=== PATIENT | female | born 1950 | race Caucasian/White ===

== ENCOUNTER 2023-06-18 09:32 | Outpatient (REF) | payer MEDICARE, OTHER, SELFPAY ==
[2023-06-18 14:49] LABS: MANUAL DIFF FLAG NO
[2023-06-18 14:54] LABS: Basophils Absolute Auto 0.1 X10*3/uL (0.0-0.2); Basophils Percent Auto 0.6 % (0-2); Eosinophils Absolute Auto 0.2 X10*3/uL (0.0-0.4); Eosinophils Percent Auto 1.8 % (0-4); Hematocrit 45.4 % (37.0-47.0); Hemoglobin 14.4 g/dl (12.0-16.0); Imm Gran Abs Auto 0.03 X10*3/uL (0.00-0.03); Imm Gran Pct Auto 0.4 % (0.0-0.4); Lymphocytes Absolute Auto 1.1 X10*3/uL (1.2-4.9); Lymphocytes Percent Auto 13.2 % (20-40); Mean Corpuscular HGB Conc 31.7 g/dl (31.0-35.0); Mean Corpuscular Hemoglobin 29.6 pg (27.0-33.0); Mean Corpuscular Volume 93.2 fL (80.0-98.0); Mean Platelet Volume 9.9 fL (9.4-12.3); Monocytes Absolute Auto 1.1 X10*3/uL (0.1-1.2); Monocytes Percent Auto 12.5 % (2-11); Neutrophils Percent Auto 71.5 % (45-73); Platelet Count 321 X10*3/uL (160-400); Red Blood Count 4.87 X10*6/uL (4.20-5.50); Red Cell Distribution Width 13.7 % (11.0-16.0); White Blood Count 8.4 X10*3/uL (4.8-10.8)
[2023-06-18 15:27] LABS: Alanine Aminotransferase 13 U/L (0-31); Alkaline Phosphatase 81 U/L (39-117); Anion Gap 12 (12-20); Aspartate Amino Transferase 23 U/L (5-31); Bilirubin Total 0.7 mg/dL (0.0-1.0); Blood Urea Nitrogen 16 mg/dL (9-16); Calcium 9.3 mg/dL (8.4-10.2); Carbon Dioxide 27 mmol/L (22-29); Chloride 105 mmol/L (96-108); Cholesterol 143 mg/dL (<200); Estimated Glomerular Filt Rate > 60; Glucose Random 73 mg/dL (60-115); HDL Cholesterol 41 mg/dL (>40); LDL Cholesterol Calculated 82 mg/dL (<100); Potassium 4.3 mmol/L (3.3-5.1); Sodium 140 mmol/L (135-145); Total Protein 6.7 g/dL (6.5-8.0); Triglycerides 103 mg/dL (<150)
[2023-06-18 15:43] LABS: TSH reflex Free T4 1.88 uIU/mL (0.32-4.0)
[2023-06-19 02:32] LABS: ~HepC Num1 0.09 S/CO (0.00-0.79); ~Hepatitis C Antibody Nonreactive (Nonreactive)
== END 2023-06-18 09:33 | disposition home or self-care (01) ==
LOC: HO.CHCLDS 09:32
PROVIDERS: Visit Provider Family Medicine
DX: R20.0 Anesthesia of skin (principal); R20.2 Paresthesia of skin; E55.9 Vitamin D deficiency, unspecified; E66.9 Obesity, unspecified
CPT/HCPCS: 36415; 80053; 80061; 82306; 84443; 85025; 86803

== ENCOUNTER 2023-06-21 09:11 | Outpatient (REF) | payer MEDICARE, OTHER, SELFPAY ==
--- NOTE | ~2023-06-21 | MM_ITS ---
EXAMINATION: MM SCREENING DIGITAL BREAST TOMOSYNTHESIS, BILATERAL CLINICAL INFORMATION: Screening. Asymptomatic. The patient is status post bilateral breast reduction. COMPARISON: Mammography: This study is compared with prior exams dating back to TECHNIQUE: Digital breast tomosynthesis is performed in both the craniocaudal and mediolateral oblique views along with computer-aided detection (CAD). Synthesized 2D images are generated from the tomosynthesis. FINDINGS: There are scattered areas of fibroglandular density (ACR BI-RADS breast composition Category b). There are no significant masses, abnormal calcifications, or other abnormalities. Post reduction changes are present in each breast. MM/MM tomosynthesis screening BI IMPRESSION: No mammographic evidence of malignancy. ASSESSMENT: BI-RADS BI-RADS 2 - Benign Findings RECOMMENDATION: Routine annual mammography screening. 1 year F/U This examination should not preclude the clinical evaluation of a suspicious palpable abnormality. This patient's information was entered into a reminder system with a target due date for their next mammogram.
== END 2023-06-21 09:12 | disposition home or self-care (01) ==
LOC: HO.MAMMO 09:11
PROVIDERS: PCP Family Medicine; Visit Provider Family Medicine
DX: Z12.31 Encounter for screening mammogram for malignant neoplasm of breast (principal)
CPT/HCPCS: 77063; 77067

== ENCOUNTER → 2023-06-21 09:15 | Outpatient (BNV) | payer MEDICARE, SELFPAY | PROVIDERS: PCP Family Medicine; Visit Provider Radiology Diagnostic Radiology | DX: Z12.31 Encounter for screening mammogram for malignant neoplasm of breast (principal) | CPT/HCPCS: 77063; 77067 ==

== ENCOUNTER 2023-07-04 10:04 | Outpatient (REF) | payer MEDICARE, OTHER, SELFPAY ==
--- NOTE | ~2023-07-04 | US_ITS ---
EXAMINATION: NONINVASIVE ASSESSMENT OF THE ARTERIES OF BOTH LOWER EXTREMITIES INCLUDING BILATERAL LOWER EXTREMITY DUPLEX. CLINICAL INFORMATION: Peripheral vascular disease COMPARISON: None TECHNIQUE: duplex Doppler techniques with wave form analysis and measurement of velocities in the common femoral, profunda femoral, superficial femoral, popliteal, tibial and peroneal arteries. The study was performed only at rest. FINDINGS: RIGHT LEG Common femoral artery: 126 cm/s, Multiphasic Profunda femoris artery: 71 cm/s, Multiphasic Superficial femoral artery (proximal): 103 cm/s, Multiphasic Superficial femoral artery (mid): 96 cm/s, Multiphasic Superficial femoral artery (distal): 105 cm/s, Multiphasic Proximal Popliteal artery: 79 cm/s, Multiphasic Mid posterior tibial artery: 111 cm/s, Multiphasic LEFT LEG: Common femoral artery: 88 cm/s, Multiphasic Profunda femoris artery: 60 cm/s, Multiphasic Superficial femoral artery (proximal): 78 cm/s, Multiphasic Superficial femoral artery (mid): 90 cm/s, Multiphasic Superficial femoral artery (distal): 67 cm/s, Multiphasic Proximal Popliteal artery: 74 cm/s, Multiphasic Mid posterior tibial artery: 101 cm/s, Multiphasic There is atherosclerotic disease. US/US arterial duplex LE BI IMPRESSION: No hemodynamically significant stenosis in the bilateral lower extremities.
== END 2023-07-04 10:05 | disposition home or self-care (01) ==
LOC: HO.US 10:04
PROVIDERS: PCP Family Medicine; Visit Provider Family Medicine
DX: I73.9 Peripheral vascular disease, unspecified (principal)
CPT/HCPCS: 93925

== ENCOUNTER 2023-07-22 08:00 | Outpatient (REF) | payer MEDICARE, OTHER, SELFPAY ==
--- NOTE | ~2023-07-22 | XR_ITS ---
EXAMINATION: XR KNEE, RIGHT CLINICAL INFORMATION: Chronic pain right knee. COMPARISON: 04/04/2015 radiographs. TECHNIQUE: 3 views of the right knee. FINDINGS: Bones are diffusely demineralized. Moderate joint effusion. Advanced tricompartmental degenerative changes with abundant chondrocalcinosis. [id number] narrowing of the medial compartment. XR/XR knee RT 3V IMPRESSION: Advanced tricompartmental degenerative changes with abundant chondrocalcinosis has progressed since 04/04/2015.
== END 2023-07-22 08:01 | disposition home or self-care (01) ==
LOC: HO.XRAY 08:00
PROVIDERS: PCP Family Medicine; Visit Provider Family Medicine
DX: M25.561 Pain in right knee (principal); G89.29 Other chronic pain
CPT/HCPCS: 73562

== ENCOUNTER 2023-08-01 12:56 | Outpatient (REF) | payer MEDICARE, SELFPAY ==
--- NOTE | 2023-08-01 | EMG_ITS ---
Chief complaint: Left big toe numbness chronic for many years, chronic back pain with history of spinal stenosis Reason for referral: Evaluate for peroneal neuropathy versus radiculopathy Referred by: Dr. Chela Lynn Procedure done: Bilateral lower extremity NCS/EMG Precautions and/or limitations: None The limb temperature was monitored continuously and remained between 32-36 degrees C during the performance of the NCS. Nerve Conduction Studies Anti Sensory Summary Table ?Stim Site NR Onset (ms) Norm Onset (ms) Peak (ms) Norm Peak (ms) O-P Amp (?V) Norm O-P Amp Site1 Site2 Delta-0 (ms) Dist (cm) Jeremiah (m/s) Norm Jeremiah (m/s) Left Sural Anti Sensory (Lat Mall) Calf ? 2.6 3.2 <4.0 11.4 >5.0 Calf Lat Mall 2.6 14.0 54 Right Sural Anti Sensory (Lat Mall) Calf ? 2.9 3.5 <4.0 5.7 >5.0 Calf Lat Mall 2.9 14.0 48 Motor Summary Table ?Stim Site NR Onset (ms) Norm Onset (ms) O-P Amp (mV) Norm O-P Amp iAmp (mV) Amp (1st) (%) Site1 Site2 Delta-0 (ms) Dist (cm) Jeremiah (m/s) Norm Jeremiah (m/s) Left Peroneal Motor (Ext Dig Brev) Ankle ? 4.1 <4.0 2.0 >2.5 2.3 100.0 Ankle Ext Dig Brev 4.1 0.0 B Fib ? 11.0 1.7 2.1 85.0 B Fib Ankle 6.9 33.5 49 >40 Poplt ? 12.0 1.7 2.2 85.0 Poplt B Fib 1.0 4.0 40 >40 Right Peroneal Motor (Ext Dig Brev) Ankle ? 4.0 <4.0 2.0 >2.5 2.2 100.0 Ankle Ext Dig Brev 4.0 0.0 B Fib ? 10.8 1.9 2.2 95.0 B Fib Ankle 6.8 34.0 50 >40 Poplt ? 11.6 1.7 1.9 85.0 Poplt B Fib 0.8 5.0 63 >40 Left Tibial Motor (Abd Olivares Brev) Ankle ? 4.6 <5 11.8 >2.5 14.9 100.0 Ankle Abd Olivares Brev 4.6 0.0 Knee ? 13.7 6.6 7.3 55.9 Knee Ankle 9.1 36.0 40 >40 EMG ?Side Muscle Nerve Root Ins Act Fibs Psw Amp Dur Poly Recrt Int Pat Comment Right AbdHallucis MedPlantar S1-2 Nml Nml Nml Nml Nml 0 Nml Complete Right AntTibialis Dp Br Peron L4-5 Nml Nml Nml Nml Nml 0 Nml Complete Right PostTibialis Tibial L5, S1 Nml Nml Nml Nml Nml 0 Nml Complete Right MedGastroc Tibial S1-2 Nml Nml Nml Nml Nml 0 Nml Complete Right VastusMed Femoral L2-4 Nml Nml Nml Nml Nml 0 Nml Complete Right Peroneus Long Sup Br Peron L5-S1 Nml Nml Nml Nml Nml 0 Nml Complete Left AbdHallucis MedPlantar S1-2 Nml Nml Nml Nml Nml 0 Nml Complete Left AntTibialis Dp Br Peron L4-5 Nml Nml Nml Nml Nml 0 Nml Complete Left PostTibialis Tibial L5, S1 Nml Nml Nml Nml Nml 0 Nml Complete Left MedGastroc Tibial S1-2 Nml Nml Nml Nml Nml 0 Nml Complete Left VastusMed Femoral L2-4 Nml Nml Nml Nml Nml 0 Nml Complete Left Peroneus Long Sup Br Peron L5-S1 Nml Nml Nml Nml Nml 0 Nml Complete Paraspinal EMG ?Side Muscle Nerve Root Ins Act Fibs Psw Comment Right Lumbar Upper Rami Nml Nml Nml Right Lumbar Mid Rami Nml Nml Nml Right Lumbar Lower Rami Nml Nml Nml Left Lumbar Upper Rami Nml Nml Nml Left Lumbar Mid Rami Nml Nml Nml Left Lumbar Lower Rami Nml Nml Nml FINDINGS: Left peroneal nerve showed prolonged distal latency, small amplitude and only slightly slow conduction velocity across fibular neck. No conduction block seen. Compared to right peroneal nerve, also showed small amplitude, but normal distal latency and normal conduction velocity. Tibial and sural nerves within normal. Concentric needle EMG was performed in selected muscles of the bilateral lower extremity and lumbar paraspinal. Study did not reveal signs of electric abnormalities as shown in the table below. IMPRESSION: 1. This is an abnormal study. 2. Findings suggestive of bilateral L5 chronic radiculopathy. Given chronicity, very possible that reinnervation has occurred, therefore showing normal looking motor units. 3. Bilateral peroneal neuropathy possible, but less likely, given no definite slowing or conduction block across fibular neck. 4. No signs of distal/peripheral neuropathy, given normal sural nerves. CLINICAL COMMENT: Further clinical correlation recommended. Thank you for your kind referral. Christine Virgen MD, SHARYN Board Certified, [place] [employer] (ABPMR) Board Certified, [place] [employer] (ABEM) CODIN [id number] x 2 MTDD
== END 2023-08-01 12:57 | disposition home or self-care (01) ==
LOC: HO.NEURO 12:56
PROVIDERS: PCP Family Medicine; Visit Provider Family Medicine
DX: R20.0 Anesthesia of skin (principal); R20.2 Paresthesia of skin
CPT/HCPCS: 95886; 95909

== ENCOUNTER → 2023-08-01 13:44 | Outpatient (BNV) | payer MEDICARE, SELFPAY | PROVIDERS: PCP Family Medicine; Visit Provider Physical Medicine & Rehabilitation | DX: M54.16 Radiculopathy, lumbar region (principal); G62.89 Other specified polyneuropathies | CPT/HCPCS: 95886; 95909 ==

== ENCOUNTER 2023-08-20 10:28 | Outpatient (REF) | payer MEDICARE, SELFPAY ==
--- NOTE | ~2023-08-20 | XR_ITS ---
EXAMINATION: XR SKULL CLINICAL INFORMATION: Skin atrophy of the scalp. COMPARISON: None available. TECHNIQUE: 5 views of the skull were obtained. XR/XR skull min 4V FINDINGS / IMPRESSION: The paranasal sinuses appear well aerated. The calvarium is intact. The mastoid air cells are well aerated. The bony orbits are maintained.
== END 2023-08-20 10:29 | disposition home or self-care (01) ==
LOC: HO.XRAY 10:28
PROVIDERS: PCP Family Medicine; Visit Provider Internal Medicine
DX: R22.0 Localized swelling, mass and lump, head (principal)
CPT/HCPCS: 70260

== ENCOUNTER 2023-10-08 07:32 | Outpatient (REF) | payer MEDICARE, SELFPAY ==
--- NOTE | ~2023-10-08 | CT_ITS ---
EXAMINATION: CT HEAD WITHOUT CONTRAST CLINICAL INFORMATION: Episodic cluster headaches. COMPARISON: None. TECHNIQUE: Contiguous axial imaging was performed from the skullbase to vertex without intravenous administration of contrast. This CT examination was performed using dose optimization techniques as appropriate, variously including the following: *Automated exposure control *Adjustment of mA and/or kV according to patient size (this includes techniques or standardized protocols for targeted exams where dose is matched to indication/reason for exam; i.e. extremities or head) *Use of iterative reconstruction technique DLP: 737 mGy-cm. FINDINGS: There is no evidence of acute intracranial hemorrhage or territorial infarction. No abnormal mass effect or midline shift is seen. Gallegos to white matter differentiation is well preserved. No extra-axial fluid collections are identified. The ventricles are normal in size. Mild chronic white matter microangiopathic changes are visible. The osseous structures and soft tissues are normal. The mastoid air cells and visualized portions of the paranasal sinuses are well aerated. CT/CT head/brain wo IV con IMPRESSION: No acute intracranial pathology.
== END 2023-10-08 07:33 | disposition home or self-care (01) ==
LOC: HO.CT 07:32
PROVIDERS: PCP Family Medicine; Visit Provider Internal Medicine
DX: G44.019 Episodic cluster headache, not intractable (principal)
CPT/HCPCS: 70450

== ENCOUNTER 2023-10-14 13:34 | Outpatient (REF) | payer MEDICARE, SELFPAY ==
[2023-10-14 15:48] LABS: Anion Gap 11 (12-20); Blood Urea Nitrogen 18 mg/dL (9-16); Calcium 9.6 mg/dL (8.4-10.2); Carbon Dioxide 29 mmol/L (22-29); Chloride 103 mmol/L (96-108); Estimated Glomerular Filt Rate > 60; Glucose Random 81 mg/dL (60-115); Sodium 139 mmol/L (135-145); Uric Acid 2.6 mg/dL (2.4-5.7)
== END 2023-10-14 13:35 | disposition home or self-care (01) ==
LOC: HO.CHCLDS 13:34
PROVIDERS: Visit Provider Family Medicine
DX: Z13.89 Encounter for screening for other disorder (principal)
CPT/HCPCS: 36415; 80048; 84550

== ENCOUNTER 2023-10-14 14:31 | Outpatient (REF) | payer MEDICARE, SELFPAY ==
--- NOTE | ~2023-10-14 | XR_ITS ---
EXAMINATION: XR ANKLE, RIGHT XR FOOT, LEFT CLINICAL INFORMATION: Right ankle pain. Left foot pain. History of gout. COMPARISON: None available. TECHNIQUE: 3 views of the right ankle. 3 views of the left foot. FINDINGS: RIGHT ANKLE: The ankle mortise is preserved. No fracture or malalignment. Large heel spur. Prominent calcifications within the distal Achilles tendon and the proximal plantar fascia. Mild tibiotalar osteoarthritis with anterior osteophyte. Suboptimal evaluation of arthritic changes at the 3rd and 4th TMT joints. LEFT FOOT: Heel spur and prominent calcifications of the proximal plantar fascia. No fracture or malalignment. Hallux valgus with mild 1st MTP joint osteoarthritis. No erosions. XR/XR foot LT min 3V IMPRESSION: RIGHT ANKLE: Large heel spur. Prominent calcifications in the distal Achilles tendon and proximal plantar fascia. Mild tibiotalar osteoarthritis. LEFT FOOT: Heel spur and prominent calcifications of the proximal plantar fascia. Hallux valgus with mild 1st MTP joint osteoarthritis.
--- NOTE | ~2023-10-14 | XR_ITS ---
EXAMINATION: XR ANKLE, RIGHT XR FOOT, LEFT CLINICAL INFORMATION: Right ankle pain. Left foot pain. History of gout. COMPARISON: None available. TECHNIQUE: 3 views of the right ankle. 3 views of the left foot. FINDINGS: RIGHT ANKLE: The ankle mortise is preserved. No fracture or malalignment. Large heel spur. Prominent calcifications within the distal Achilles tendon and the proximal plantar fascia. Mild tibiotalar osteoarthritis with anterior osteophyte. Suboptimal evaluation of arthritic changes at the 3rd and 4th TMT joints. LEFT FOOT: Heel spur and prominent calcifications of the proximal plantar fascia. No fracture or malalignment. Hallux valgus with mild 1st MTP joint osteoarthritis. No erosions. XR/XR ankle RT min 3V IMPRESSION: RIGHT ANKLE: Large heel spur. Prominent calcifications in the distal Achilles tendon and proximal plantar fascia. Mild tibiotalar osteoarthritis. LEFT FOOT: Heel spur and prominent calcifications of the proximal plantar fascia. Hallux valgus with mild 1st MTP joint osteoarthritis.
== END 2023-10-14 14:32 | disposition home or self-care (01) ==
LOC: HO.XRAY 14:31
PROVIDERS: PCP Family Medicine; Visit Provider Family Medicine
DX: M79.672 Pain in left foot (principal); M25.571 Pain in right ankle and joints of right foot
CPT/HCPCS: 36415; 73610; 73630; 80048; 84550

== ENCOUNTER 2023-11-29 08:15 | Outpatient (REF) | payer MEDICARE, SELFPAY ==
[2023-11-29 14:26] LABS: Uric Acid 2.7 mg/dL (2.4-5.7)
== END 2023-11-29 08:16 | disposition home or self-care (01) ==
LOC: HO.CHCLDS 08:15
PROVIDERS: Visit Provider Family Medicine
DX: M10.9 Gout, unspecified (principal)
CPT/HCPCS: 36415; 84550

== ENCOUNTER 2023-12-13 09:43 | Outpatient (REF) | payer MEDICARE, SELFPAY ==
[2023-12-13 15:14] LABS: TSH reflex Free T4 3.11 uIU/mL (0.32-4.0)
== END 2023-12-13 09:44 | disposition home or self-care (01) ==
LOC: HO.CHCLDS 09:43
PROVIDERS: Visit Provider Family Medicine
DX: E03.9 Hypothyroidism, unspecified (principal)
CPT/HCPCS: 36415; 84443

== ENCOUNTER 2024-02-06 11:32 | Emergency (ER) | payer MEDICARE, SELFPAY ==
--- NOTE | ~2024-02-06 | US_ITS ---
EXAMINATION: US TRIPLEX LOWER EXTREMITY, LEFT CLINICAL INFORMATION: pain and leg swelling COMPARISON: None available. TECHNIQUE: Color-flow triplex imaging with spectral analysis and compression Doppler were performed on the left lower extremity. FINDINGS: Respiratory variation, normal compression and augmented flow are noted throughout the left lower extremity. The visualized common femoral vein, superficial femoral vein, profunda femoral vein, popliteal vein and midcalf peroneal and posterior tibial venous segments show no evidence of deep venous thrombosis. There is no Mcdaniel's cyst. US/US venous duplex LE LT IMPRESSION: No evidence of deep venous thrombosis involving the left lower extremity. Electronically signed by: Elliot Trinh MD 02/06/2024 01:19 PM EDT
--- NOTE | ~2024-02-06 | XR_ITS ---
EXAMINATION: XR ANKLE, LEFT CLINICAL INFORMATION: Left ankle pain. COMPARISON: Left foot radiographs dated 10/14/2023. TECHNIQUE: AP, lateral, and mortise views of the left ankle. FINDINGS: No acute fracture or dislocation. The ankle mortise is maintained. Small tibiotalar marginal osteophytes, unchanged. No osseous erosion. Prominent dystrophic calcification associated with the plantar fascia as well as more mild dystrophic calcification of the distal Achilles tendon and posterior tibialis tendon, unchanged. XR/XR ankle LT min 3V IMPRESSION: 1. Mild tibiotalar osteoarthritis, unchanged. 2. Dystrophic calcification associated with the plantar fascia as well as more mild dystrophic calcification associated with the distal Achilles tendon and posterior tibialis tendon, unchanged. Electronically signed by: Juan Aleman MD 02/06/2024 03:44 PM EDT
[2024-02-06 11:38] VITALS: BP 101/56; PULSE 77; RESP 20; TEMP 37.1; O2SAT 98; BMI 24.9
--- NOTE | 2024-02-06 11:38 | ED_ITS ---
HPI - General Adult General Chief complaint: Extremity Problem Stated complaint: Pain L knee radiating to ankle Time Seen by Provider: 02/06/24 12:21 Source: patient and family Mode of arrival: ambulatory Limitations: no limitations History of Present Illness ED Provider: BARRIE HPI narrative: 73 yo female with PMH of hypothyroidism, gout, reactive airway disease here with c/o L leg pain and ankle pain no trauma no recent travel no rash denies insect bites. Notes it hurts to walk and bear weight. Pain goes from foot to back of knee. Pain since Saturday. complaint: left leg pain Onset (ago): day(s) (2) Location: left and lower extremity Radiation: extremity Severity: severe Quality: aching Pain Consistency: intermittent Relieving factors: immobilization Exacerbating factors: movement Associated symptoms: other (ankle swelling) Treatments prior to arrival: none Related Data Previous Rx's ?Medication ?Instructions ?Recorded cefuroxime axetil 500 mg tablet 500 mg PO BID 7 days #14 tabs 02/06/24 hydrocodone 5 mg-acetaminophen 325 1 tab PO Q6H PRN pain #14 tabs 02/06/24 mg tablet prednisone 20 mg tablet 40 mg (2 x 20 mg) PO DAILY 4 days 02/06/24 #8 tabs walker #1 ea 02/06/24 Allergies Allergy/AdvReac Type Severity Reaction Status Date / Time penicillin V Allergy Unknown Rash Verified 02/06/24 11:40 morphine AdvReac Vomiting Verified 02/06/24 11:40 Review of Systems 2 Review of Systems: Constitutional : No Fever, No Chills ENT/Mouth : No Ear Pain, No Hoarseness, No sore throat Eyes: No Eye Pain, No Swelling, No Redness, No Foreign Body Cardiovascular : No Chest Pain, No SOB Respiratory : No Cough, No Dyspnea Gastrointestinal : No Nausea, No Vomiting, No Diarrhea, No abdominal Pain Genitourinary : No Dysuria, No Hematuria Musculoskeletal : positive joint pain, No Myalgias, pos Joint Swelling Skin : No Skin lacerations, No rash Neuro : No Weakness, No Numbness, No Loss of Consciousness, No Dizziness, No Headache All other systems reviewed and are negative PMFSH Past Medical History Attestation statement: The following information was validated with the patient. Source: old records reviewed Medical History Gout Hypothyroidism Social History Social History (Updated 02/06/24 @ 12:53 by Delaney Delacruz DO) Patient Tobacco Use Status: Tobacco use Unknown Smoked in Last 30 Days: No Use of substances other than those prescribed or required for medical reasons: No Advance Directives: No Advance Directives Information Provided: Yes Physical Exam ED Vital Signs: Vital Signs - 24 hr 02/06/24 11:38 02/06/24 12:20 02/06/24 14:00 Temperature 98.7 F 97.6 F 98.2 F Pulse Rate 77 74 79 Respiratory Rate 20 16 18 Blood Pressure 101/56 L 174/66 H 111/58 L Pulse Oximetry 98 98 97 Oxygen Delivery Method Room Air Room Air Room Air BMI result Body Mass Index 24.9 Appearance: Alert. Oriented X3. No acute distress. Eyes: Pupils equal, round and reactive to light. ENT: Pharynx normal. Neck: Normal inspection. Neck supple. CVS: Normal heart rate and rhythm. Pulses normal. Respiratory: No respiratory distress. Breath sounds normal. Abdomen: Soft and nontender. Skin: Skin warm and dry. Normal skin color. Normal skin turgor. Extremities: L ankle small effusion noted no erythema or warmth no redness distal pulses intact, achilles testing intact, 2+ DP and PT pulses, no mass felt in L groin Neuro: Oriented X 3. No motor deficit. No sensory deficit. Course Course Course Narrative: This is a rapid medical exam performed by Adamaris Hansen NP: Additional HPI, ROS, PE not included below will be deferred to primary provider. Patient is a 73-year-old female presenting from urgent care with complaint of left lower leg pain and swelling, want to r/o DVT. Patient also complaining of swelling in front of right ear and back of neck. Plan: labs, viral swabs, U/S Reevaluation(s) Reevaluation #1: repeat exam on DC more hot and pink area on medial malleolus missed two doses of allopurinol suspect gout Medical Decision Making Medical Decision Making MDM Narrative: 73 yo female with PMH of hypothyroidism, gout, reactive airway disease here with c/o L leg pain no signs of infection no mass felt has small effusion to L ankle but no signs of infection - will obtain xray, US to rule out DVT, basic labs, infl markers anticipate treatment for gout vs arthralgia. Differential Diagnosis Differential Diagnoses: The differential diagnosis associated with the presentation includes gout, arthralgia, DVT Admission/Observation Consideration of admission/observation: Escalation of care including admission/observation considered can be managed as outpatient on discharge has very mild pink redness on medial malleolus no lymphangitis will DC on prednisone and oral antibiotics along with oral pain medications, patient asking for a walker Lab Data MDM Lab Attestation statement: I reviewed the patient's lab results. 02/06/24 11:56 02/06/24 11:56 Labs: Lab Results 02/06/24 Range/Units 11:56 WBC 9.6 (4.8-10.8) X10*3/uL RBC 4.64 (4.20-5.50) X10*6/uL Hgb 14.2 (12.0-16.0) g/dl Hct 43.0 (37.0-47.0) % MCV 92.7 (80.0-98.0) fL MCH 30.6 (27.0-33.0) pg MCHC 33.0 (31.0-35.0) g/dl RDW 14.4 (11.0-16.0) % Plt Count 317 (160-400) X10*3/uL MPV 9.6 (9.4-12.3) fL Immature Gran % (Auto) 0.4 (0.0-0.4) % Neut % (Auto) 66.2 (45-73) % Lymph % (Auto) 21.5 (20-40) % [place] % (Auto) 10.7 (2-11) % Eos % (Auto) 0.8 (0-4) % Baso % (Auto) 0.4 (0-2) % Lymph # (Auto) 2.1 (1.2-4.9) X10*3/uL [place] # (Auto) 1.0 (0.1-1.2) X10*3/uL Eos # (Auto) 0.1 (0.0-0.4) X10*3/uL Baso # (Auto) 0.0 (0.0-0.2) X10*3/uL Abs Immat Gran (auto) 0.04 H (0.00-0.03) X10*3/uL Absolute Neuts (auto) 6.4 (2.0-8.3) x10*3/uL Absolute Nucleated RBC 0.000 (0.0-0.012) X10*3/uL Nucleated RBC % (auto) 0.0 (0.0-0.2) /100WBC ESR 6 (0-20) MM/HR PT 12.4 (10.9-12.4) SEC INR 1.1 (0.9-1.1) Sodium 136 (135-145) mmol/L Potassium 4.1 (3.3-5.1) mmol/L Chloride 101 (96-108) mmol/L Carbon Dioxide 30 H (22-29) mmol/L Anion Gap 9 L (12-20) BUN 17 H (9-16) mg/dL Creatinine 0.69 (0.5-1.4) mg/dL Estim Creat Clear Calc 60.9 Estimated GFR > 60 Random Glucose 92 (60-115) mg/dL Calcium 9.7 (8.4-10.2) mg/dL Total Bilirubin 1.1 H (0.0-1.0) mg/dL AST 20 (5-31) U/L ALT 11 (0-31) U/L Alkaline Phosphatase 65 (39-117) U/L Total Creatine Kinase 79 (26-140) U/L C-Reactive Protein 1.96 H (< or = 0.50) mg/dL Total Protein 5.9 L (6.5-8.0) g/dL Albumin 3.7 (3.5-5.0) g/dL Influenza Type A (PCR) NEGATIVE (Negative) Influenza Type B (PCR) NEGATIVE (Negative) RSV RNA Qual (PCR) NEGATIVE (Negative) SARS-CoV-2 RNA (RT-PCR) NEGATIVE (Negative) Independent Interpretation I performed an independent interpretation of an: Plain X-Ray (arthritis) and Ultrasound (no DVT) Radiology Impression Discussion of test interpretation with radiology: I have reviewed the radiologist's reading. Independent Historian Clinical information obtained from an independent historian. History obtained from or confirmed by: Spouse External Record Review External record reviewed: Outpatient record Prescription Management I considered prescription management with: Pain Medication, Antibiotic and Other Discharge Plan Discharge Clinical Impression: Leg edema, left Arthralgia Qualifiers: Joint pain location: ankle Laterality: left Qualified Code(s): M25.572 - Pain in left ankle and joints of left foot Gout Qualifiers: Gout site: ankle Gout etiology: unspecified cause Chronicity: acute Laterality: left Qualified Code(s): M10.9 - Gout, unspecified Patient Disposition: Home, Self-Care Instructions: Arthralgia (ED), Edema (ED) Additional Instructions: return for worsening pain, rash, fevers or any other concerns monitor the pink area near the ankle arthritis on ankle xray no blood clot in leg Prescriptions: New hydrocodone-acetaminophen 5-325 mg tablet 1 tab PO Q6H PRN (Reason: pain) Qty: 14 0RF Rx Instructions: partial fill okay; Partial Fill upon patient request. prednisone 20 mg tablet 40 mg PO DAILY 4 Days Qty: 8 0RF cefuroxime axetil 500 mg tablet 500 mg PO BID 7 Days Qty: 14 0RF (SIGRID) sohan Barry See Rx Instructions .Route Qty: 1 0RF Rx Instructions: As directed Print Language: Amharic
[2024-02-06 12:04] LABS: MANUAL DIFF FLAG NO
[2024-02-06 12:05] LABS: Basophils Percent Auto 0.4 % (0-2); Eosinophils Absolute Auto 0.1 X10*3/uL (0.0-0.4); Eosinophils Percent Auto 0.8 % (0-4); Hemoglobin 14.2 g/dl (12.0-16.0); Imm Gran Abs Auto 0.04 X10*3/uL (0.00-0.03); Imm Gran Pct Auto 0.4 % (0.0-0.4); Lymphocytes Absolute Auto 2.1 X10*3/uL (1.2-4.9); Lymphocytes Percent Auto 21.5 % (20-40); Mean Corpuscular Hemoglobin 30.6 pg (27.0-33.0); Mean Corpuscular Volume 92.7 fL (80.0-98.0); Mean Platelet Volume 9.6 fL (9.4-12.3); Monocytes Percent Auto 10.7 % (2-11); Neutrophils Absolute Auto 6.4 x10*3/uL (2.0-8.3); Neutrophils Percent Auto 66.2 % (45-73); Platelet Count 317 X10*3/uL (160-400); Red Blood Count 4.64 X10*6/uL (4.20-5.50); Red Cell Distribution Width 14.4 % (11.0-16.0); White Blood Count 9.6 X10*3/uL (4.8-10.8)
[2024-02-06 12:20] VITALS: BP 174/66; PULSE 74; RESP 16; TEMP 36.4; O2SAT 98
[2024-02-06 12:20] LABS: Alanine Aminotransferase 11 U/L (0-31); Albumin Level 3.7 g/dL (3.5-5.0); Alkaline Phosphatase 65 U/L (39-117); Anion Gap 9 (12-20); Aspartate Amino Transferase 20 U/L (5-31); Bilirubin Total 1.1 mg/dL (0.0-1.0); Blood Urea Nitrogen 17 mg/dL (9-16); Calcium 9.7 mg/dL (8.4-10.2); Carbon Dioxide 30 mmol/L (22-29); Chloride 101 mmol/L (96-108); Creatinine Clr Calc Pharmacy 60.9; Estimated Glomerular Filt Rate > 60; Glucose Random 92 mg/dL (60-115); Potassium 4.1 mmol/L (3.3-5.1); Sodium 136 mmol/L (135-145); Total Protein 5.9 g/dL (6.5-8.0)
--- NOTE | 2024-02-06 12:26 | PC.NURSE ---
Pt comes to ED today with c/o pain to L posterior knee 10/10 pain with radiation to L ankle. Additionally, Pt c/o pain to posterior R ear 9/10 pain with radiation to posterior R neck. Pt reports pain symptoms started at the same time, 2 days ago with unknown origin. States she went to urgent care today and was advised to come here. Denies SOB, cough, n/v/d. Pt reports she normally ambulated independently but has been using a cane d/t pain. VSS, A&Ox3, afebrile. U/S at bedside now.
[2024-02-06 12:28] LABS: INTERNATIONAL NORM RATIO 1.1 (0.9-1.1); Prothrombin Time 12.4 SEC (10.9-12.4)
--- OUTSIDE RECORDS SUMMARY | 2024-02-06 12:40 | XMS_ITS | Continuity of Care Document ---
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 Role Phone Annette Castillo NP Primary Care Physician Encounter [facility] [place] Date(s): 05/31/20 - 08/18/20 [facility] [address] [place] [id number] Attending Physician: Norberto Alan MD Admitting Physician: Norberto Alan MD Referring Physician: Annette Castillo NP Allergies, Adverse Reactions, Alerts Substance Reaction Severity Status morphine 1 Persistent Moderate Active penicillins Active 1nausea vomiting Immunizations Given and Recorded Vaccine Date Status Refusal Reason Influenza Virus Vaccine (oldterm) 01/02/20 Recorde d Influenza Virus Vaccine (oldterm) 12/12/18 Recorde d influenza virus vaccine, inactivated 1 12/28/17 Re corded influenza virus vaccine, inactivated 2 01/08/17 Re corded influenza virus vaccine, inactivated 3 02/12/16 Gi shakira influenza virus vaccine, inactivated 06/24/15 Give n influenza virus vaccine, inactivated 4 01/28/13 Gi shakira influenza virus vaccine, inactivated 5 01/24/12 Gi shakira pneumococcal 13-valent vaccine 07/22/15 Given pneumococcal 23-valent vaccine 6 01/29/14 Given influenza virus vaccine, live 7 01/28/14 Given Zostavax (oldterm) 8 06/16/13 Given tetanus/diphtheria/pertussis, acel(Tdap) 9 10/22/11 Given tetanus/diphtheria/pertussis, acel(Tdap) 10 09/29/07 Given 1Location History: pharmacy 2Location History: [facility] 3Admin Note: high dose done at [facility] 4Admin Note: immun records 5Admin Note: immun records 6Admin Note: immun records 7Admin Note: immun records 8Admin Note: immun records 9Admin Note: immun records 10Admin Note: immun records Medications aspirin 81 mg oral delayed release tablet = 81 mg, By Mouth, Daily, # 30 tablet, 3 Refills, Maintenance, 04/08/20 8:32:00 EST, [id number], 164, cm, 03/17/20 16:43:00 EST, Height, 76.3, kg, 03/12/20 13:32:00 EST, Dry Weight Start Date: 04/08/20 Status: Ordered baclofen 10 mg oral tablet 10 mg, 1, tablet, By Mouth, Daily at bedtime, TAKE 1 TABLET BY MOUTH EVERYDAY AT BEDTIME, # 90 tablet, Refills 0, Tot. Refills 0, Maintenance, 08/05/20 12:52:00 EDT, Route to Pharmacy Electronically,[facility] #[id number], Partial fill upon patient re... Start Date: 08/05/20 Status: Ordered calcium (as carbonate)-vitamin D 500 mg-400 intl units oral tablet 1 tablet, By Mouth, 2 times a day, # 180 tablet, 1 Refills, Maintenance, 05/05/20 16:26:00 EST, Tablet, [facility] #[id number], 1 tablet By Mouth 2 times a day, 164, cm, 03/17/20 16:43:00 EST, Height,76.3, kg, 03/12/20 13:32:00 EST, Dry Weight Start Date: 05/05/20 Status: Ordered CeleBREX 200 mg oral capsule 1 capsule = 200 mg, By Mouth, 2 times a day, Until mail order is delivered, # 28 capsule, 0 Refills, Maintenance, 10/19/19 12:34:00 EDT, Capsule, [facility]/pharmacy #[id number], 158, cm, 09/30/19 10:10:00 EDT, Height, 77.2, kg, 05/20/19 20:41:00 EST, Dry Weight Start Date: 10/19/19 Stop Date: 11/02/19 Status: Ordered Compression Stockings See Instructions, # 2 each, Refills 1, Tot. Refills 1, Maintenance, surgical, knee length 20-30 mm Hg, 05/07/19 17:02:00 EST, Compound Start Date: 05/07/19 Status: Ordered CoQ10 300 mg oral capsule 1 capsule = 300 mg, By Mouth, Daily, # 30 capsule, 0 Refills, Maintenance, 11/12/19 16:33:00 EDT, Capsule, [facility]/pharmacy #[id number], 158, cm, 11/12/19 15:02:00 EDT, Height, 77.2, kg, 05/20/19 20:41:00 EST,Dry Weight Start Date: 11/12/19 Stop Date: 12/12/19 Status: Ordered CPAP EQUIPMENT CPAP EQUIPMENT, See Instructions, # 1 each, Refills 0, Tot. Refills 0, Maintenance, CPAP EQUIPMENT MASKING, TUBING, FILTERS, HEAD GEAR, CHIN STRAP, WATER CHAMBER, 03/01/17 13:26:10, Compound Start Date: 03/01/17 Status: Ordered CPAP MACHINE CPAP MACHINE, See Instructions, # 1 each, Refills 0, Tot. Refills 0, Maintenance, CPAP MACHINE USE NIGHTLY FOR TRAE DX CENTRAL SLEEP APNEA CPAP 6 with a heated humidifier. Recommend ordering a machinewith compliance data capabilities and followi... Start Date: 03/01/17 Status: Ordered gabapentin 600 mg oral tablet See Instructions, TAKE 1 TABLET IN THE MORNING AND 1 TABLET AT BEDTIME. TAKE A 300MG CAPSULE IN THEMID-AFTERNOON, # 180 tablet, 0 Refills, 05/30/20 11:17:00 EST, [facility]/pharmacy #[id number], 164, cm, 03/17/20 16:43:00 EST, Height, 76.3, kg, 03/12/20 13:32:00... Start Date: 05/30/20 Status: Ordered levothyroxine 0.088 mg oral tablet 1 tablet = 88 mcg, By Mouth, Daily, # 90 tablet, 1 Refills, Soft Stop, 03/07/20 15:20:00 EST, [facility] #[id number], 157.48, cm, 02/04/20 11:41:00 EDT, Height, 77.2, kg, 05/20/19 20:41:00 EST, Dry Weight Start Date: 03/07/20 Stop Date: 09/03/20 Status: Ordered Mirapex 1 mg oral tablet 1.5 tablet = 1.5 mg, By Mouth, 3 times a day, # 135 tablet, 4 Refills, Maintenance, 12/24/19 9:28:00 EDT, [facility] #[id number], 158, cm, 11/12/19 15:02:00 EDT, Height, 77.2, kg, 05/20/19 20:41:00 EST, Dry Weight Start Date: 12/24/19 Stop Date: 05/22/20 Status: Ordered Multivitamin With Minerals By Mouth, 0 Refills, Maintenance Start Date: 04/02/11 Status: Ordered Protonix 40 mg oral delayed release tablet 1 tablet = 40 mg, By Mouth, Daily, # 30 tablet, 1 Refills, Maintenance, 03/13/20 9:49:00 EST, [facility], 164, cm, 03/13/20 6:58:00 EST, Height, 76.3, kg, 03/12/20 13:32:00 EST, Dry Weight Start Date: 03/13/20 Status: Ordered traZODone 100 mg oral tablet 1, tablet, By Mouth, Daily at bedtime, # 90 tablet, Refills 1, Tot. Refills 1, Maintenance, 08/05/20 11:01:00 EDT, Route to Pharmacy Electronically, [facility] #[id number], 157, cm, 06/30/20 10:07:00 EST, Height, 76.3, kg, 03/12/20 13:32:00 EST, Dry We... Start Date: 08/05/20 Status: Ordered Zofran 4 mg oral tablet 1 tablet = 4 mg, By Mouth, Every 8 hours, PRN Nausea & Vomiting, # 10 tablet, 0 Refills, Maintenance, 03/13/20 9:49:00 EST, Tablet, [facility], Partial fill upon patient request, 164, cm, 03/13/20 6:58:00 EST, Height, 76.3, kg, 03/12/20... Start Date: 03/13/20 Status: Ordered Problem List Condition Effective Dates Status Health Status Inform ant Adjustment disorder with dep ressed mood(Confirmed) Active Central sleep apnea(Confirmed) Active Constipation(Confirmed) Active Cough(Confirmed) Active Diverticulosis of colon(Confirmed) 1 Active Hypothyroidism(Confirmed) Active Insomnia(Confirmed) Active Lumbar spondylosis(Confirmed) Active mild osteophytes(Confirmed) Active Osteopenia(Confirmed) 2, 3 Active Pain in limb(Confirmed) Active Left shoulder pain(Confirmed) Active 1severe in sigmoid, mild in descending colon by abdominal CT 2Dexa 2014 osteopenia 3last dexa 2012 Social History Social History Type Response Smoking Status Former smoker; Type: Cigarettes; Tobacco use times per day: quit smoking 30 yrs ago; entered on: 06/25/15 Sex
--- OUTSIDE RECORDS SUMMARY | 2024-02-06 12:40 | XMS_ITS | Continuity of Care Document ---
Author Organization [facility] ter Address [address] [place] [id number] Care Team Providers Care Sheeting Puller Name Role Phone Annette Castillo NP Primary Care Physician Encounter [facility] Date(s): 10/04/22 - 10/05/[address] [id number] Discharge Disposition: A-D/C Home Attending Physician: Damian Amin MD Admitting Physician: Windy Mohan MD Referring Physician: Not on Staff, Referring MD Allergies, Adverse Reactions, Alerts Substance Reaction Severity Status morphine 1 Persistent Moderate Active penicillins Active 1nausea vomiting Immunizations Given and Recorded Vaccine Date Status Refusal Reason influenza virus vaccine, inactivated 1 02/05/22 Gi shakira influenza virus vaccine, inactivated 12/16/20 Mango rded influenza virus vaccine, inactivated 01/07/20 Mango rded influenza virus vaccine, inactivated 01/21/18 Mango rded influenza virus vaccine, inactivated 2 12/28/17 Re corded influenza virus vaccine, inactivated 01/09/17 Mango rded influenza virus vaccine, inactivated 3 01/08/17 Re corded influenza virus vaccine, inactivated 4 02/12/16 Gi shakira influenza virus vaccine, inactivated 02/02/16 Mango rded influenza virus vaccine, inactivated 06/24/15 Give n influenza virus vaccine, inactivated 02/02/15 Mango rded influenza virus vaccine, inactivated 5 01/28/13 Gi shakira influenza virus vaccine, inactivated 04/29/12 Mango rded influenza virus vaccine, inactivated 01/28/12 Mango rded influenza virus vaccine, inactivated 6 01/24/12 Gi shakira SARS-CoV-2 (COVID-19) mRNA BNT-162b2 vac 03/30/21 Recorded SARS-CoV-2 (COVID-19) mRNA BNT-162b2 vac 7 08/20/20 Recorded SARS-CoV-2 (COVID-19) mRNA BNT-162b2 vac 07/30/20 Recorded Influenza Virus Vaccine (oldterm) 01/02/20 Recorde d Influenza Virus Vaccine (oldterm) 12/12/18 Recorde d pneumococcal 13-valent vaccine 07/22/15 Given pneumococcal 23-valent vaccine 8 01/29/14 Given influenza virus vaccine, live 9 01/28/14 Given Zoster Vaccine Live 06/17/13 Recorded Zostavax (oldterm) 10 06/16/13 Given tetanus/diphtheria/pertussis, acel(Tdap) 11 10/22/11 Given tetanus/diphtheria/pertussis, acel(Tdap) 04/29/11 Recorded tetanus/diphtheria/pertussis, acel(Tdap) 12 09/29/07 Given 1Result Comment: [facility] [id number] 2Location History: pharmacy 3Location History: [facility] 4Admin Note: high dose done at [facility] 5Admin Note: immun records 6Admin Note: immun records 7Result Comment: [facility] 8Admin Note: immun records 9Admin Note: immun records 10Admin Note: immun records 11Admin Note: immun records 12Admin Note: immun records Medications Aspirin Low Dose 81 mg oral delayed release tablet 1 tablet, By Mouth, Daily, # 30 tablet, 2 Refills, Maintenance, 06/26/22 8:57:00 EST, [id number], 157.4, cm, 02/05/22 10:42:00 EDT, Height, 77.6, kg, 06/29/21 7:08:00 EST, Dry Weight Start Date: 06/26/22 Status: Ordered baclofen 10 mg oral tablet 1, tablet, By Mouth, Daily at bedtime, # 30 tablet, Refills 2, Maintenance, 07/26/22 7:37:00 EDT, Route to Pharmacy Electronically, [id number], 157.4, cm, 02/05/22 10:42:00 EDT, Height, 77.6, kg, 06/29/21 7:08:00 EST, Dry Weight Start Date: 07/26/22 Status: Ordered calcium (as carbonate)-vitamin D 500 mg-400 intl units oral tablet 1 tablet, By Mouth, 2 times a day, # 180 tablet, 3 Refills, Maintenance, 11/09/20 8:38:00 EDT, Tablet, [id number], 1 tablet By Mouth 2 times a day,x90 days, 157.5, cm, 11/09/20 8:24:00 EDT, Height, 76.3, kg, 03/12/20 13:32:00 EST, Dry Weight Start Date: 11/09/20 Stop Date: 11/04/21 Status: Ordered gabapentin 300 mg oral capsule 600 mg, Capsule, By Mouth, 10/05/22 9:00:00 EDT Start Date: 10/05/22 Stop Date: 10/05/22 Status: Completed gabapentin 600 mg oral tablet See Instructions, TAKE 1 TABLET BY MOUTH EVERY MORNING AND 1 TABLET EVERY NIGHT AT BEDTIME, # 60 tablet, 0 Refills, Maintenance, 08/15/22 9:41:00 EDT, [id number], 157.4, cm, 02/05/22 10:42:00 EDT, Height, 77.6, kg, 06/29/21 7:08:00 EST, Dry Weight Start Date: 08/15/22 Status: Ordered levothyroxine 0.088 mg oral tablet 1 tablet, By Mouth, Daily, for 90 days, # 90 tablet, 3 Refills, Physician Stop 04/29/23 8:23:00 EST, 05/04/22 8:23:00 EST, [id number], LABS NEEDED FOR FURTHER REFILLS, 157.4, cm, 02/05/22 10:42:00 EDT, Height, 77.6, kg, 06/29/21 7:08:00 EST... Start Date: 05/04/22 Stop Date: 04/29/23 Status: Ordered pramipexole 1 mg oral tablet 1.5 tablet, By Mouth, 3 times a day, # 135 tablet, 5 Refills, Maintenance, 09/18/22 8:41:00 EDT, [id number], 157.4, cm, 02/05/22 10:42:00 EDT, Height, 77.6, kg, 06/29/21 7:08:00 EST, Dry Weight Start Date: 09/18/22 Status: Ordered Protonix 40 mg oral delayed release tablet 1 tablet = 40 mg, By Mouth, Daily, # 30 tablet, 1 Refills, Maintenance, 03/13/20 9:49:00 EST, EC Tablet, 164, cm, 03/13/20 6:58:00 EST, Height, 76.3, kg, 03/12/20 13:32:00 EST, Dry Weight Start Date: 03/13/20 Status: Ordered traZODone 100 mg oral tablet 1, tablet, By Mouth, Daily at bedtime, # 30 tablet, Refills 5, Tot. Refills 5, Maintenance, 07/25/22 16:33:00 EDT, Route to Pharmacy Electronically, [id number], 157.4, cm, 02/05/22 10:42:00 EDT, Height, 77.6, kg, 06/29/21 7:08:00 EST, Dry W... Start Date: 07/25/22 Status: Ordered Problem List Condition Confirmation Course Effective Dates Status H ealth Status Informant Adjustment disorder with depressed mood Confirmed Active Central sleep apnea Confirmed Active Constipation Confirmed Active Cough Confirmed Active Diverticulosis Confirmed Active Diverticulosis of colon 1 Confirmed Active Hypothyroidism Confirmed Active Insomnia Confirmed Active Internal hemorrhoids Confirmed Active Lumbar spondylosis Confirmed Active Obese class I Confirmed Active mild osteophytes Confirmed Active Osteopenia 2, 3 Confirmed Active Pain in limb Confirmed Active Left shoulder pain Confirmed Active 1severe in sigmoid, mild in descending colon by abdominal CT 2Dexa 2014 osteopenia 3last dexa 2013 Results Radiology Reports * Exam Date Time Procedure Performing Provider Status 10/05/22 1:[address] Angio Neck Colon , Reanna; Auth (Ve rified) Notes: (CT Angio Neck) Reason For Exam: Other: RESULT: CT Angio Neck CT Angio Head, CT Angio Neck Reason: TIA; Clinical Question(s): Infarction; Order Comment: / Infarction per EMR: Recurrent episodes of near-syncope, gait disturbance. TECHNIQUE: CT angiogram of the head and neck was performed after bolus administration of intravenous contrast. 100 mL of Omnipaque 300 was administered intravenously. Coronal and sagittal MIP reformatted images were obtained. Additional 3-D images were created on a separate workstation under concurrent supervision by the attending radiologist. All stenoses are measured using NASCET criteria. Weight-based protocol using automatic tube modulation was used to optimize exposure parameters. RADIATION DOSE PARAMETERS: CTDIvol Body: 13.77 mGy, DLP Body: 355 mGy*cm. COMPARISON: Noncontrast CT head performed concurrently. FINDINGS: CTA OF THE NECK: Arch: There is a two vessel aortic arch, with common origin of the brachiocephalic artery and left common carotid artery. There is mild atherosclerotic plaque of the aortic arch, but origins of the supra aortic vessels are patent. Right carotid system: The common carotid and cervical internal carotid arteries are patent. There is calcified atherosclerotic plaque at the carotid bifurcation, but no ICA stenosis (0%) by NASCET criteria. Left carotid system: The common carotid and cervical internal carotid arteries are patent. There iscalcified atherosclerotic plaque at the carotid bifurcation, but no ICA stenosis (0%) by NASCET criteria. There is a tfgykf-wzra-cicbifcv vertebral artery system. Right vertebral: No significant stenosis. No evidence of dissection or aneurysm. Left vertebral: No significant stenosis. No evidence of dissection or aneurysm. Other: Soft tissues and bones: No evidence of lymphadenopathy or mass. Post thyroidectomy changes. Visualized lungs are blurred by motion artifact, without significant superimposed airspace opacity. No acute osseous abnormality. There is a sclerotic focus in the left C4 lateral mass involving the extending into the facet pillar. This is nonspecific. CTA OF THE HEAD: Anterior circulation: Bilateral intracranial ICAs demonstrate atherosclerotic calcification, without stenosis. Bilateral MENDY and MCA branches are patent. There is no significant stenosis, proximal cutoff, aneurysm, or vascular malformation. There is a hypoplastic right A1 segment. Posterior circulation: Bilateral intracranial vertebral arteries, the basilar artery, and bilateralsuperior cerebellar and posterior cerebral branches are patent. There is no significant stenosis, proximal cutoff, aneurysm, or vascular malformation. Veins: Major dural venous sinuses are patent. Other: Soft tissues and bones: No midline shift or effacement of the basal cisterns. No space-occupying hemorrhage. No territorial loss of gallegos-white matter differentiation. Orbits are unremarkable. No significant opacification in the paranasal sinuses or mastoid air cells. IMPRESSION: No proximal occlusion or high grade stenosis in the major arteries of the head and neck. WSN: [id number] Ordering Physician: Meño Steen Dictated By: Rochelle Velasco MD Dictated Date/Time: 10/05/22 2:48 pm Reviewed By: Rochelle Velasco MD Signed By: Rochelle Velasco MD Signed Date/Time: 10/05/22 2:48 pm Transcribed By: LAYA Transcribed Date/Time: 10/05/22 2:03 pm * Exam Date Time Procedure Performing Provider Status 10/05/22 1:[address] Angio Head Colon , Reanna; Auth (Ve rified) Notes: (CT Angio Head) Reason For Exam: TIA RESULT: CT Angio Head CT Angio Head, CT Angio Neck Reason: TIA; Clinical Question(s): Infarction; Order Comment: / Infarction per EMR: Recurrent episodes of near-syncope, gait disturbance. TECHNIQUE: CT angiogram of the head and neck was performed after bolus administration of intravenous contrast. 100 mL of Omnipaque 300 was administered intravenously. Coronal and sagittal MIP reformatted images were obtained. Additional 3-D images were created on a separate workstation under concurrent supervision by the attending radiologist. All stenoses are measured using NASCET criteria. Weight-based protocol using automatic tube modulation was used to optimize exposure parameters. RADIATION DOSE PARAMETERS: CTDIvol Body: 13.77 mGy, DLP Body: 355 mGy*cm. COMPARISON: Noncontrast CT head performed concurrently. FINDINGS: CTA OF THE NECK: Arch: There is a two vessel aortic arch, with common origin of the brachiocephalic artery and left common carotid artery. There is mild atherosclerotic plaque of the aortic arch, but origins of the supra aortic vessels are patent. Right carotid system: The common carotid and cervical internal carotid arteries are patent. There is calcified atherosclerotic plaque at the carotid bifurcation, but no ICA stenosis (0%) by NASCET criteria. Left carotid system: The common carotid and cervical internal carotid arteries are patent. There iscalcified atherosclerotic plaque at the carotid bifurcation, but no ICA stenosis (0%) by NASCET criteria. There is a icgjna-oohf-kzpvrcvf vertebral artery system. Right vertebral: No significant stenosis. No evidence of dissection or aneurysm. Left vertebral: No significant stenosis. No evidence of dissection or aneurysm. Other: Soft tissues and bones: No evidence of lymphadenopathy or mass. Post thyroidectomy changes. Visualized lungs are blurred by motion artifact, without significant superimposed airspace opacity. No acute osseous abnormality. There is a sclerotic focus in the left C4 lateral mass involving the extending into the facet pillar. This is nonspecific. CTA OF THE HEAD: Anterior circulation: Bilateral intracranial ICAs demonstrate atherosclerotic calcification, without stenosis. Bilateral MENDY and MCA branches are patent. There is no significant stenosis, proximal cutoff, aneurysm, or vascular malformation. There is a hypoplastic right A1 segment. Posterior circulation: Bilateral intracranial vertebral arteries, the basilar artery, and bilateralsuperior cerebellar and posterior cerebral branches are patent. There is no significant stenosis, proximal cutoff, aneurysm, or vascular malformation. Veins: Major dural venous sinuses are patent. Other: Soft tissues and bones: No midline shift or effacement of the basal cisterns. No space-occupying hemorrhage. No territorial loss of gallegos-white matter differentiation. Orbits are unremarkable. No significant opacification in the paranasal sinuses or mastoid air cells. IMPRESSION: No proximal occlusion or high grade stenosis in the major arteries of the head and neck. WSN: [id number] Ordering Physician: Meño Steen Dictated By: Rochelle Velasco MD Dictated Date/Time: 10/05/22 2:48 pm Reviewed By: Rochelle Velasco MD Signed By: Rochelle Velasco MD Signed Date/Time: 10/05/22 2:48 pm Transcribed By: LAYA Transcribed Date/Time: 10/05/22 2:03 pm * Exam Date Time Procedure Performing Provider Status 10/04/22 5:[address] Head/Brain W/O Contrast Chanel Espino ; Gregory (Verified) Notes: (CT Head/Brain W/O Contrast) Reason For Exam: Headache(s) RESULT: CT Head/Brain W/O Contrast CT Head/Brain W/O Contrast INDICATION: Reason: Headache(s); Clinical Question(s): Hematoma; Order Comment: TECHNIQUE: Noncontrast head CT using axial technique and reconstructed in axial and coronal planes.Iterative reconstruction techniques are used to optimize dose and image quality. CTDIvol Head: 45.83 mGy, DLP Head: 733 mGy*cm. COMPARISON: 10/07/2016. FINDINGS: Human Machine Interface Engineer view findings, lines and tubes: None. BRAIN AND EXTRA-AXIAL SPACES: No parenchymal hemorrhage, midline shift, or mass effect. Gallegos-white matter differentiation is wellpreserved. No acute infarct. Ventricles, sulci, and basilar cisterns are normal. Mild low-density white matter changes. No subarachnoid hemorrhage. No subdural or epidural collection. CALVARIUM, SKULL BASE, AND SOFT TISSUES: No fractures or suspicious bony lesions. The paranasal sinuses and mastoid air cells are clear. Visualized orbits and globes are intact. The extracranial soft tissues are unremarkable. IMPRESSION: No acute intracranial pathology. WSN: [id number] Ordering Physician: Nick Pettit Dictated By: Nitin Colvin MD Dictated Date/Time: 10/04/22 6:10 pm Reviewed By: Nitin Colvin MD Signed By: Nitin Colvin MD Signed Date/Time: 10/04/22 6:10 pm Transcribed By: LAYA Transcribed Date/Time: 10/04/22 6:06 pm Vital Signs Most recent to oldest [Reference Range]: 1 2 3 Height 158 cm (10/05/22 3:37 PM) 158 cm (10/05/22 10:53 AM) 158 cm (10/05/22 8:42 AM) Weight 75.1 kg (10/04/22 8:34 PM) 80.8 kg (10/04/22 8:27 PM) Oxygen Saturation [94-100 %] 100 % (10/05/22 3:37 PM) 96 % (10/05/22 10:53 AM) 100 % (10/05/22 6:50 AM) Pulse Rate [55-90 bpm] 54 bpm *L* (10/05/22 3:37 PM) 58 bpm (10/05/22 10:53 AM) 59 bpm (10/05/22 6:50 AM) Body Mass Index [18.5-24.99 kg/m2] 32.37 kg/m2 *>HHI* (10/04/22 8:27 PM) Blood Pressure [90-138/55-84 mm Hg] 114/65mm Hg (10/05/22 3:37 PM) 110/66mm Hg (10/05/22 10:53 AM) 117/65mm Hg (10/05/22 6:50 AM) Respiratory Rate [16-30 br/min] 18 br/min (10/05/22 3:37 PM) 17 br/min (10/05/22 10:53 AM) 18 br/min (10/05/22 10:30 AM) Temperature [96.8-100.4 DegF] 97.6 DegF (10/05/22 3:37 PM) 98.0 DegF (10/05/22 10:53 AM) 97.6 DegF (10/05/22 6:50 AM) Mode of Delivery (Oxygen) Room air (10/05/22 3:37 PM) Room air (10/05/22 10:53 AM) Room air (10/05/22 6:50 AM) Blood pressure sites Arm, left (10/05/22 3:37 PM) Arm, left (10/05/22 10:53 AM) Arm, left (10/05/22 6:50 AM) Temperature Route Oral (10/05/22 3:37 PM) Oral (10/05/22 10:53 AM) Oral (10/05/22 6:50 AM) Dry Weight 80.8 kg (10/04/22 8:27 PM) 75 kg (10/04/22 5:50 PM) 75 kg (10/04/22 1:51 PM) Weight Obtained Via Standing scale (10/04/22 8:34 PM) Dry Weight Obtained Via Patient/family s tated (10/04/22 10:49 AM) Social History Social History Type Response Smoking Status Never (less than 100 in lifetime) entered on: 11/09/20 Sex Consult note * Racquel SANTAMARIA, Linda Hussein: MODIFY, PERFORM Event Display: Consult Authored Date: [id number] Patient: ??RUT MORALES ? Age:??72 Years?Sex:??Female?:??1950?? Chief Complaint/Reason for Consultation Near syncope neurology consulted for presyncope/ gait disturbance History of Present Illness Rut Morales is a 72 year old female presenting to the ED for bumps on her head . Neurology consulted for presyncope with gait disturbance. Patient states gait disturbance for >6months. Patient states presyncopal episode described as extreme fatigue with heavy eyes, like they are rolling back. Past medical history included: sleep apnea (does not use machine), hypothyroidism, lumbar spondylosis, gastric bypass in 2003. home meds include: gabapentin, baclofen and pramipexole. no reported recent medication changes. 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 She denies alcohol or drug use. She does not smoke. no reported changes to medication. She reports poor sleep habits waking multiple times a night, increased daytime fatigue. She drinks coffee with increased intake. On exam, no bump/palpable lesions??appreciated, skull suture lines palpated with out abnormality. strength equal in all extremities. no reported change in sensation. Light touch,??proprioception, andvibration sense intact. able to move from lying to edge of bed and then standing with out reported symptoms. able to stand with out assistance. Romberg negative. gait steady, appears cautious, three step turn. non contrast head CT with out acute intracranial finding. orthostatic vital signs negative Review of Systems ?General:?? reports fatigue ?? Denies weight changes, fever, chills ?Skin: denies rash ?Eyes: denies visual changes, blurry vision ?ENT: denies hearing changes, tinnitus, ear pain, ear drainage, sore throat, swollen neck, hoarseness, jaw pain/jaw claudication ?Cardiovascular: denies chest pain ?Respiratory: denies SOB ?GI/: reports constipation ?? denies abdominal pain, nausea, vomiting, diarrhea ?denies loss of bladder or bowel function ?Musculoskeletal: denies muscle weakness, swelling ?Neurological: reports left great toe numbness > 4 months, gait instability > 6 months ??denies headache, dizziness, loss of vision, blurry vision, hearing changes, trouble swallowing, slurring, word finding difficulties, weakness, paresthesias, tremors,?? seizure, numbness/tingling/loss of sensation Objective Vital Signs?? Temperature: 98 DegF (10/05/22 10:53:00) Temperature Route: Oral (10/05/22 10:53:00) Pulse Rate: 58 bpm (10/05/22 10:53:00) Pulse Rate, Lyin bpm (10/05/22 08:42:00) Systolic Blood Pressure, Lyin mm Hg (10/05/22 08:42:00) Diastolic Blood Pressure, Lyin mm Hg (10/05/22 08:42:00) Pulse Rate, Sittin bpm (10/05/22 08:42:00) Systolic Blood Pressure, Sittin mm Hg (10/05/22 08:42:00) Diastolic Blood Pressure, Sittin mm Hg (10/05/22 08:42:00) Pulse Rate, Standin bpm (10/05/22 08:42:00) Systolic Blood Pressure, Standin mm Hg (10/05/22 08:42:00) Diastolic Blood Pressure, Standin mm Hg (10/05/22 08:42:00) Respiratory Rate: 17 br/min (10/05/22 10:53:00) Systolic Blood Pressure: 110 mm Hg (10/05/22 10:53:00) Diastolic Blood Pressure: 66 mm Hg (10/05/22 10:53:00) Blood pressure sites: Arm, left (10/05/22 10:53:00) Mean Arterial Pressure: 81 mm Hg (10/05/22 10:53:00) Pulse Pressure: 44 mm Hg (10/05/22 10:53:00) Oxygen Saturation: 96 % (10/05/22 10:53:00) Mode of Delivery (Oxygen): Room air (10/05/22 10:53:00) Early Warning Score: 0 (10/05/22 13:26:41) ? Pain Scores Pain relief acceptable: Yes (10:30) ?? Precautions No Precautions documented.? Marlyn Coma Scale Francisco Coma Score: 15 (10/05/22 08:28:00) Motor Response-Adult: Obeys commands (10/05/22 08:28:00) Response Eye Opening: Spontaneously (10/05/22 08:28:00) Verbal Response-Adult: Oriented and converses (10/05/22 08:28:00) ? Mobility & Ambulation Level Mobility & Ambulation Level?? No qualifying data available. ?? Therapeutic Activity Therapeutic Activities/Mobility/Balance?? No qualifying data available. ? Physical Exam General Exam Appearance: Appears comfortable and appropriate, in no acute distress. Appears stated age.? HEENT: Normocephalic, atraumatic. No abrasions or ecchymosis. Conjunctia without injection. PERRL. EOMI. Lids without ptosis. Nares patent. Mouth normal with moist mucous membranes. Tongue midline. Neck supple ?? Cardiac: Regular rate and rhythm ?? Respiratory: Normal inspiration and expiration ?? Dermatologic: No significant skin lesions, rash, or bruising ?? Extremities: No edema or stasis changes ?? Neurologic: Mentation: Awake, alert. Patient is oriented to person, place, time, and situation. Speech is clearand without slurring or aphasia. Follows simple and 3 step command. Able to repeat no ifs, ands orbuts. Able to name objects. green chainer: PERRL. EOMI. No nystagmus. VFF to confrontation.?? Smile symmetric, no droop. Tongue midline. Facial sensation in tact to light touch V1/V2/V3. Hearing acuity in tact to voice.? Motor: Normal bulk/tone. Strength 5/5 UEs and LEs. Land Surveying Manager equal. No pronator drift. Sensation: In tact to light touch, vibration, proprioception of UEs and LEs, no extinction to DTS DTR: 1+ ??biceps, brachioradialis, patella. Toes mute. No clonus. No hoffmans. Coordination: Finger to nose smooth Gait:??steady, cautious. bilateral arm swing. bilateral ground clearance. three step turn. Romberg negative Assessment/Plan Diagnoses ??Rut Morales is a 72 year old female presenting to the ED for bumps on her head . Neurology consulted for presyncope with gait disturbance >6months. Presyncopal episode described as extreme fatigue with heavy eyes, like they are rolling back. Past medical history included: sleep apnea (does not use machine), hypothyroidism, lumbar spondylosis, gastric bypass in 2003.?? She reports poor sleep habits waking multiple times a night, increased daytime fatigue. She drinks coffee with increased intake. On exam, no bump/palpable lesions??appreciated, skull suture lines palpated with out abnormality. strength equal in all extremities. no reported change in sensation. Light touch,??proprioception, andvibration sense intact. able to move from lying to edge of bed and then standing with out reported symptoms. able to stand with out assistance. Romberg negative. gait steady, appears cautious, three step turn. non contrast head CT with out acute intracranial finding. orthostatic vital signs negative ?? Skull palpated with out??lesions. Suture lines appreciated, likely noticeable due to decreased??tissue r/t ageing and intentional weight loss. Fatigue/heavy eyes/rolling likely due to poor sleep habits and untreated apnea gait - no reported change in gait/lower extremity weakness or pain- chronic - ??continue supportive care and PT ?? Recommending -??serological studies:??Lyme studies, B vitamins, SED rate and??CRP - obtain new sleep clinic consult - encourage hydration, decreased PO intake - supportive care per??primary team ?? Neurology signing off discussed with Dr. Portillo cortexted primary team recs ? Histories Allergies Allergies ?(Active and Proposed Allergies Only) morphine? (Severity: Persistent Moderate, Onset: Unknown) ?Comments: nausea vomiting penicillins? (Severity: Unknown severity, Onset: Unknown) ? Past Medical History/Problem List Active Problems??(17) Adjustment disorder with depressed mood Central sleep apnea Constipation Cough Diverticulosis Diverticulosis of colon Hypothyroidism Insomnia Internal hemorrhoids Left shoulder pain Lumbar spondylosis mild osteophytes Obese class I Osteopenia Pain in limb Radial head fracture, closed Wrist pain, right ? Past Surgical History Colonoscopy: 06/30/20 Gallbladder Thyroidectomy Breast reduction Gastric bypass H/O: hysterectomy ? Social History Alcohol Details:??Use: Never. Details:??Use: Never. Employment/School Details:??Status: Employed. 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 Home/Environment Details:??Living situation: Home/Independent. ??Other: of 50 years. Sexual Details:??Sexually involved in last 6 months: Yes. Substance Abuse Details:??Use: Never. Tobacco Details:??Use: Never (less than 100 in lifetime). Details:??Former smoker, Type: Cigarettes. ??Tobacco use times per day: quit smoking 30 yrs ago. Electronic Cigarette/Vaping Details:??Electronic Cigarette Use: Never. ? Family History Mother: CAD - Coronary artery disease Father: CAD - Coronary artery disease ? Medications Home Medications Aspirin (Aspirin Low Dose 81 mg oral delayed release tablet)?1?tab(s)?By Mouth?Daily Baclofen (baclofen 10 mg oral tablet)?1?tablet?By Mouth?Daily at bedtime Calcium And Vitamin D Combination (calcium (as carbonate)-vitamin D 500 mg-400 intl units oral tablet)?1?tab(s)?By Mouth?2 times a day?for 90?Days Durable Medical Equipment (CPAP MACHINE)?See Instructions?CPAP MACHINE USE NIGHTLY FOR TRAE DXCENTRAL SLEEP APNEA CPAP 6 with a heated humidifier. Recommend ordering a machine with compliance data capabilities and following residual AHI. Durable Medical Equipment (CPAP EQUIPMENT)?See Instructions?CPAP EQUIPMENT MASKING, TUBING, FILTERS, HEAD GEAR, CHIN STRAP, WATER CHAMBER Durable Medical Equipment (Compression Stockings)?See Instructions?surgical, knee length 20-30 mm Hg Gabapentin (gabapentin 600 mg oral tablet)?See Instructions?TAKE 1 TABLET BY MOUTH EVERY MORNING AND 1 TABLET EVERY NIGHT AT BEDTIME Levothyroxine (levothyroxine 0.088 mg oral tablet)?1?tab(s)?By Mouth?Daily?for 90?Days Pantoprazole (Protonix 40 mg oral delayed release tablet)?1?tab(s)?40?Milligram?By Mouth?Daily Pramipexole (pramipexole 1 mg oral tablet)?1.5?tab(s)?By Mouth?3 times a day Trazodone (traZODone 100 mg oral tablet)?1?tablet?By Mouth?Daily at bedtime ? Inpatient Medications Medications (15) Active SCHEDULED: (7) Aspirin 81 mg EC Tablet (aspirin 81 mg oral delayed release tablet) ??81 mg, By Mouth, Daily Baclofen 10 mg Tablet (baclofen 10 mg oral tablet) ??10 mg, By Mouth, Daily at bedtime Gabapentin 300 mg Capsule (gabapentin 300 mg oral capsule) ??600 mg, By Mouth, 2 times a day Levothyroxine 88 mcg Tablet (levothyroxine 0.088 mg oral tablet) ??88 mcg, By Mouth, Daily NaCl 0.9% Flush 3ml (NaCL 0.9% Flush) ??3 mL, IV Push, Every 8 hours Pantoprazole 40 mg EC Tablet (Protonix 40 mg oral delayed release tablet) ??40 mg, By Mouth, Daily Pramipexole 0.5 mg Tablet (pramipexole 0.5 mg oral tablet) ??1.5 mg, By Mouth, 3 times a day CONTINUOUS: (0) PRN: (8) Acetaminophen 325 mg Tablet (Acetaminophen Tablet) ??650 mg, By Mouth, Every 4 hours Dextromethorphan-Guaifenesin 20 mg-200 mg/10 mL Liqu UD (Robitussin DM Liquid) ??10 mL, By Mouth, Every 4 hours Melatonin 3 mg Tablet (Melatonin Tablet) ??3 mg, By Mouth, Daily at bedtime NaCl 0.9% Flush 3ml (NaCL 0.9% Flush) ??3 mL, IV Push, Every 8 hours Polyethylene Glycol 17 Gm Powder (MiraLax Powder) ??17 Gm 1 pack/packet, By Mouth, Daily Senna 8.6 mg / Docusate 50 mg tablet (Docusate/Senna Tablet) ??1 tablet, By Mouth, 2 times a day Simethicone 80 mg Chewable Tablet (Simethicone Tablet) ??80 mg, Chew, 3 times a day Trazodone 50 mg Tablet (traZODone 50 mg oral tablet) ??100 mg, By Mouth, Daily at bedtime ? Results Recent Labs BLOOD COUNT & DIFF WBC 8.2 k/mm3 ()?? 10/05/2022 09:10 RBC 4.90 m/mm3 ()?? 10/05/2022 09:10 Hgb 14.5 Gm/dL ()?? 10/05/2022 09:10 Hct 45.9 % (High)?? 10/05/2022 09:10 MCV 93.7 femtoliters ()?? 10/05/2022 09:10 MCH 29.6 pg ()?? 10/05/2022 09:10 MCHC 31.6 g/dL (Low)?? 10/05/2022 09:10 Platelet Count 330 k/mm3 ()?? 10/05/2022 09:10 RDW-SD 48.8 femtoliters (High)?? 10/05/2022 09:10 MPV 9.9 femtoliters ()?? 10/05/2022 09:10 Nucleated RBC (Automated) 0.0 #/100 WBC'S ()?? 10/05/2022 09:10 Abs. NRBC 0.0 k/mm3 ()?? 10/05/2022 09:10 Abs. Neut 4.3 k/mm3 ()?? 10/04/2022 12:16 Abs. Lymph 2.0 k/mm3 ()?? 10/04/2022 12:16 Abs. Warrick 0.5 k/mm3 ()?? 10/04/2022 12:16 Abs. Eo 0.2 k/mm3 ()?? 10/04/2022 12:16 Abs. Baso 0.0 k/mm3 ()?? 10/04/2022 12:16 Neut % 60.0 % ()?? 10/04/2022 12:16 Lymph % 28.4 % ()?? 10/04/2022 12:16 Warrick % 7.6 % ()?? 10/04/2022 12:16 Eos % 3.2 % ()?? 10/04/2022 12:16 Baso % 0.4 % ()?? 10/04/2022 12:16 Imm Gran 0.4 % ()?? 10/04/2022 12:16 Abs. Imm Gran 0.0 k/mm3 ()?? 10/04/2022 12:16 ?? CHEM GENERAL Sodium 140 mmol/L ()?? 10/05/2022 09:10 Potassium 4.4 mmol/L ()?? 10/05/2022 09:10 Chloride 104 mmol/L ()?? 10/05/2022 09:10 Bicarbonate Level 29 mmol/L ()?? 10/05/2022 09:10 Anion Gap 7 ()?? 10/05/2022 09:10 Glucose Level 75 mg/dL ()?? 10/05/2022 09:10 Hemoglobin A1C (Monitoring) 5.3 % ()?? 10/05/2022 09:10 BUN 15 mg/dL ()?? 10/05/2022 09:10 Creatinine-Blood 0.8 mg/dL ()?? 10/05/2022 09:10 Estimated GFR Creatinine 82 ML/MIN/1.73 M2 ()?? 10/05/2022 09:10 Calcium 9.2 mg/dL ()?? 10/04/2022 12:16 ?? ENDOCRINE/TUMOR MARKER TSH 0.87 uIU/mL ()?? 10/04/2022 12:16 ?? HEME OTHER Hold Blue Top SPECIMEN DISCARDED AFTER 4 HOURS. ()?? 10/04/2022 12:16 ?? LIPID STUDIES Cholesterol 133 mg/dL ()?? 10/05/2022 09:10 Triglycerides 90 mg/dL ()?? 10/05/2022 09:10 HDL Cholesterol 46 mg/dL ()?? 10/05/2022 09:10 LDL Cholesterol 69 mg/dL ()?? 10/05/2022 09:10 Non HDL Cholesterol 87 mg/dL ()?? 10/05/2022 09:10 ?? URINE OTHER Est Creatinine Clearance 49.25 mL/min ()?? 10/05/2022 09:44 ?? VIROLOGY COVID-19 by RT-PCR NEGATIVE ()?? 10/04/2022 17:40 ? Blood Glucose Trend Glucose Level: 75 mg/dL (10/05/22 09:10:00) ? Urinalysis Est Creatinine Clearance: 49.25 mL/min (09:44) ?? Microbiology ?? COVID-19 (Novel Coronavirus), Rapid PCR?? Completed?? Source: Nasal Body Site: Nose Collected Dt/Tm: 10/04/2022 17:33 Last Updated Dt/Tm: 10/04/2022 19:25 ? * Andrew Portillo MD: PERFORM Event Display: Consult Authored Date: [id number] Attending PA/HVAC ENGINEER Attestation:??I have reviewed the patient's medical history, findings on examination, diagnosis and treatment plan as documented in the PA/HVAC ENGINEER note. Case and its management discussed with PA/HVAC ENGINEER. Admission evaluation note * Meño Zeng: PERFORM Event Display: Admission Note Authored Date: [id number] Patient: ??RUT MORALES ? Age:??72 Years?Sex:??Female?:??1950?? Chief Complaint/Reason for Consultation Near syncope History of Present Illness Ms. Morales is a 72-year-old female with a past medical history of hypothyroidism, restless legsyndrome, GERD who presents with near syncope.?Patient reports over the past??1 month she has been having intermittent episodes of??feeling lightheaded,??feels as though she may pass out.?? These episodes occur sitting at rest as well as??standing or with ambulation, she is unable to identify any aggravating or alleviating factors.?? Yesterday, she experienced??one of these episodes while she was sitting down, felt??significantly fatigued??and??felt her eyes rolling to the back of her head??and thought she may lose consciousness, though she did not.?? There was associated nausea but deniesany vomiting.?? She reports that upon standing she felt lightheaded??and felt unsteady on her feet.?? Upon further questioning,??patient does report intermittent episodes of gait instability??occurring over the past month,??she reports it seems as though??her?? legs are not doing what I want them to do .?? She denies any unilateral weakness, numbness, or tingling of the extremities and denies any facial asymmetry, vision changes,??speech or swallowing difficulty. There has been no associated??diaphoresis, palpitations, chest pain. ??She denies any recent travel, trauma, surgery, lower extremity pain or swelling.?? She does endorse significant fatigue over the past month??and has been experiencing occasional headaches without photophobia.?She is also concerned with?? bumps ??on her head??that she first noted??several months ago,??nontender.?? She otherwise denies any??fevers, chills, cough, shortness of breath, chest pain, abdominal pain, vomiting, diarrhea, dysuria, rashes or other skin changes, lower extremity pain or swelling. ?? Upon arrival in the emergency department, patient was afebrile, heart rate 71 bpm, respirations 18, blood pressure 124/61, satting 98% on room air oxygen.?? Laboratory work-up revealed no leukocytosis, no anemia, no significant electrolyte disturbances, BUN 21, creatinine 0.7, TSH within normal limits.?? Given her recurrent episodes of near syncope medical admission was requested for further evaluation and management. Review of Systems Complete review of systems negative except as noted in HPI?? Objective Measurements?? Height: 158 cm (10/04/22) Weight: 75.1 kg (10/04/22) Dry Weight: 80.8 kg (10/04/22) Body Mass Index:??32.37 kg/m2??Critical (10/04/22) ? Vital Signs?? Temperature: 98.6 DegF (10/04/22 20:32:00) Temperature Route: Oral (10/04/22 20:32:00) Pulse Rate: 61 bpm (10/04/22 20:32:00) Respiratory Rate: 22 br/min (10/04/22 20:32:00) Systolic Blood Pressure: 112 mm Hg (10/04/22 20:32:00) Diastolic Blood Pressure: 55 mm Hg (10/04/22 20:32:00) Blood pressure sites: Arm, right (10/04/22 20:32:00) Mean Arterial Pressure: 74 mm Hg (10/04/22 20:32:00) Pulse Pressure: 57 mm Hg (10/04/22 20:32:00) Oxygen Saturation: 97 % (10/04/22 20:32:00) Mode of Delivery (Oxygen): Room air (10/04/22 20:32:00) Early Warning Score: 2 (10/04/22 20:34:54) ? Physical Exam General Appearance: Sitting upright in bed in no acute distress Head: Normocephalic and atraumatic Neck: Supple, trachea midline?? Eyes: Conjunctiva normal, EOMI, no nystagmus, PERRL ENT: Mucus membranes moist?? Cardiac: RRR. No M/G/R Respiratory: CTA, no wheezes or rhonchi?? GI: Soft, nontender, nondistended, bowel sounds present?? Neuro: Alert and oriented x3, speech is fluent, no facial asymmetry, upper and lower extremity strength 5/5, sensation to light touch intact and equal bilaterally Extremities: No cyanosis, no edema?? Skin: Warm and dry?? Psych: Appropriate affect Assessment/Plan ?? Assessment:??Ms. Morales is a 72-year-old female with a past medical history of hypothyroidism, restless leg syndrome, GERD who presents with near syncope. ?? Near syncope Gait disturbance Patient presenting with??numerous episodes of recurrent near syncope over the past month Episodes??occur??both at rest and with exertion??without??known aggravating or alleviating??factors Also endorsing occasional??gait instability,??exam is nonfocal CT head nonacute Plan -Monitor on telemetry -Given gait??instability/dizziness,??will obtain CTA head/neck -Check orthostatic vitals -Continue home aspirin -Check lipid panel, HbA1c ?? Hypothyroidism: Continue levothyroxine ?? GERD: Continue PPI ?? Neuropathy: Continue gabapentin ?? Restless leg syndrome: Continue??pramipexole ?? VTE Prophylaxis:??Encourage ambulation ?? Code Status:??Full code ?Order Code Status:??Code Status Ordered Histories Allergies Allergies ?(Active and Proposed Allergies Only) morphine? (Severity: Persistent Moderate, Onset: Unknown) ?Comments: nausea vomiting penicillins? (Severity: Unknown severity, Onset: Unknown) ?? Past Medical History/Problem List Active Problems??(17) Adjustment disorder with depressed mood Central sleep apnea Constipation Cough Diverticulosis Diverticulosis of colon Hypothyroidism Insomnia Internal hemorrhoids Left shoulder pain Lumbar spondylosis mild osteophytes Obese class I Osteopenia Pain in limb Radial head fracture, closed Wrist pain, right ?? Past Surgical History Colonoscopy: 06/30/20 Thyroidectomy Breast reduction Gastric bypass H/O: hysterectomy Gallbladder ?? Social History Alcohol Details:??Use: Never. Details:??Use: Never. Employment/School Details:??Status: Employed. 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 Home/Environment Details:??Living situation: Home/Independent. ??Other: of 52 years. Sexual Details:??Sexually involved in last 6 months: Yes. Substance Abuse Details:??Use: Never. Tobacco Details:??Use: Never (less than 100 in lifetime). Details:??Former smoker, Type: Cigarettes. ??Tobacco use times per day: quit smoking 30 yrs ago. Electronic Cigarette/Vaping Details:??Electronic Cigarette Use: Never. ?? Family History Mother: CAD - Coronary artery disease Father: CAD - Coronary artery disease Medications Home Medications Aspirin (Aspirin Low Dose 81 mg oral delayed release tablet)?1?tab(s)?By Mouth?Daily Baclofen (baclofen 10 mg oral tablet)?1?tablet?By Mouth?Daily at bedtime Calcium And Vitamin D Combination (calcium (as carbonate)-vitamin D 500 mg-400 intl units oral tablet)?1?tab(s)?By Mouth?2 times a day?for 90?Days Durable Medical Equipment (CPAP MACHINE)?See Instructions?CPAP MACHINE USE NIGHTLY FOR TRAE DXCENTRAL SLEEP APNEA CPAP 6 with a heated humidifier. Recommend ordering a machine with compliance data capabilities and following residual AHI. Durable Medical Equipment (CPAP EQUIPMENT)?See Instructions?CPAP EQUIPMENT MASKING, TUBING, FILTERS, HEAD GEAR, CHIN STRAP, WATER CHAMBER Durable Medical Equipment (Compression Stockings)?See Instructions?surgical, knee length 20-30 mm Hg Gabapentin (gabapentin 600 mg oral tablet)?See Instructions?TAKE 1 TABLET BY MOUTH EVERY MORNING AND 1 TABLET EVERY NIGHT AT BEDTIME Levothyroxine (levothyroxine 0.088 mg oral tablet)?1?tab(s)?By Mouth?Daily?for 90?Days Miscellaneous Rx ([place] SHE[place] CALCIUM-VIT D TAB)?1?tab(s)?By Mouth?2 times a day Pantoprazole (Protonix 40 mg oral delayed release tablet)?1?tab(s)?40?Milligram?By Mouth?Daily Pramipexole (pramipexole 1 mg oral tablet)?1.5?tab(s)?By Mouth?3 times a day Trazodone (traZODone 100 mg oral tablet)?1?tablet?By Mouth?Daily at bedtime Results Recent Labs BLOOD COUNT & DIFF WBC 7.1 k/mm3 ()?? 10/04/2022 12:16 RBC 4.69 m/mm3 ()?? 10/04/2022 12:16 Hgb 13.5 Gm/dL ()?? 10/04/2022 12:16 Hct 43.4 % ()?? 10/04/2022 12:16 MCV 92.5 femtoliters ()?? 10/04/2022 12:16 MCH 28.8 pg ()?? 10/04/2022 12:16 MCHC 31.1 g/dL (Low)?? 10/04/2022 12:16 Platelet Count 323 k/mm3 ()?? 10/04/2022 12:16 RDW-SD 47.7 femtoliters (High)?? 10/04/2022 12:16 MPV 10.1 femtoliters ()?? 10/04/2022 12:16 Nucleated RBC (Automated) 0.0 #/100 WBC'S ()?? 10/04/2022 12:16 Abs. NRBC 0.0 k/mm3 ()?? 10/04/2022 12:16 Abs. Neut 4.3 k/mm3 ()?? 10/04/2022 12:16 Abs. Lymph 2.0 k/mm3 ()?? 10/04/2022 12:16 Abs. Warrick 0.5 k/mm3 ()?? 10/04/2022 12:16 Abs. Eo 0.2 k/mm3 ()?? 10/04/2022 12:16 Abs. Baso 0.0 k/mm3 ()?? 10/04/2022 12:16 Neut % 60.0 % ()?? 10/04/2022 12:16 Lymph % 28.4 % ()?? 10/04/2022 12:16 Warrick % 7.6 % ()?? 10/04/2022 12:16 Eos % 3.2 % ()?? 10/04/2022 12:16 Baso % 0.4 % ()?? 10/04/2022 12:16 Imm Gran 0.4 % ()?? 10/04/2022 12:16 Abs. Imm Gran 0.0 k/mm3 ()?? 10/04/2022 12:16 ?? CHEM GENERAL Sodium 138 mmol/L ()?? 10/04/2022 12:16 Potassium 4.2 mmol/L ()?? 10/04/2022 12:16 Chloride 104 mmol/L ()?? 10/04/2022 12:16 Bicarbonate Level 27 mmol/L ()?? 10/04/2022 12:16 Anion Gap 7 ()?? 10/04/2022 12:16 Glucose Level 99 mg/dL ()?? 10/04/2022 12:16 BUN 21 mg/dL ()?? 10/04/2022 12:16 Creatinine-Blood 0.7 mg/dL ()?? 10/04/2022 12:16 Estimated GFR Creatinine 89 ML/MIN/1.73 M2 ()?? 10/04/2022 12:16 Calcium 9.2 mg/dL ()?? 10/04/2022 12:16 ?? ENDOCRINE/TUMOR MARKER TSH 0.87 uIU/mL ()?? 10/04/2022 12:16 ?? HEME OTHER Hold Blue Top SPECIMEN DISCARDED AFTER 4 HOURS. ()?? 10/04/2022 12:16 ?? URINE OTHER Est Creatinine Clearance 56.29 mL/min ()?? 10/04/2022 13:35 ?? VIROLOGY COVID-19 by RT-PCR NEGATIVE ()?? 10/04/2022 17:40 ? Microbiology ?? COVID-19 (Novel Coronavirus), Rapid PCR?? Completed?? Source: Nasal Body Site: Nose Collected Dt/Tm: 10/04/2022 17:33 Last Updated Dt/Tm: 10/04/2022 19:25 ? Imaging(s) ?CT Head/Brain W/O Contrast ?? 10/04/2022 17:58??by Nitin Colvin MD ?IMPRESSION: No acute intracranial pathology. ?? EKG study * Event Display: ECG 12-Lead Authored Date: Please click on pdf link to open report * Event Display: ECG 12-Lead Authored Date: Ventricular Rate: 67 BPM Atrial Rate: 67 BPM P-R Interval: 172 ms QRS Duration: 110 ms Q-T Interval: 418 ms QTC Calculation(Bazett): 441 ms P [place]: 36 degrees R [place]: -8 degrees T [place]: 49 degrees Normal sinus rhythm Incomplete right bundle branch block Borderline ECG When compared with ECG of 11-MAR-2020 16:33, No significant change was found Confirmed by FARSHAD ENGLE ([id number]) on 10/05/2022 2:10:41 PM [place] * Christie Ruggiero DO: MODIFY, MODIFY, MODIFY, MODIFY, MODIFY, MODIFY, MODIFY, MODIFY, MODIFY, MODIFY, MODIFY, MODIFY, PERFORM Event Display: [facility] Authored Date: [id number] Patient: ??RUT MORALES ? Age:??72 Years?Sex:??Female?:??1950?? Subjective Overnight events: none ?? Patient is overall feeling OK this morning??but continues to endorse fatigue??and ongoing??balance issues. She denies??any??episodes of dizziness??or vertigo.??No headache,??confusion,??numbness or tinglingin any of her extremities, chest pain, palpitations, shortness of breath,??peripheral edema. She is eating well and denies any??dumping, nausea, vomiting. No fevers, chills, night sweats,??generalized muscle weakness,??rash or new or concerning skin lesions. ?? Review of Systems Pertinent negative and positives included in subjective above.?? Objective Vital Signs?? Temperature: 97.6 DegF (10/05/22 06:50:00) Temperature Route: Oral (10/05/22 06:50:00) Pulse Rate: 59 bpm (10/05/22 06:50:00) Pulse Rate, Lyin bpm (10/05/22 08:42:00) Systolic Blood Pressure, Lyin mm Hg (10/05/22 08:42:00) Diastolic Blood Pressure, Lyin mm Hg (10/05/22 08:42:00) Pulse Rate, Sittin bpm (10/05/22 08:42:00) Systolic Blood Pressure, Sittin mm Hg (10/05/22 08:42:00) Diastolic Blood Pressure, Sittin mm Hg (10/05/22 08:42:00) Pulse Rate, Standin bpm (10/05/22 08:42:00) Systolic Blood Pressure, Standin mm Hg (10/05/22 08:42:00) Diastolic Blood Pressure, Standin mm Hg (10/05/22 08:42:00) Respiratory Rate: 18 br/min (10/05/22 09:30:00) Systolic Blood Pressure: 117 mm Hg (10/05/22 06:50:00) Diastolic Blood Pressure: 65 mm Hg (10/05/22 06:50:00) Blood pressure sites: Arm, left (10/05/22 06:50:00) Mean Arterial Pressure: 82 mm Hg (10/05/22 06:50:00) Pulse Pressure: 52 mm Hg (10/05/22 06:50:00) Oxygen Saturation: 100 % (10/05/22 06:50:00) Mode of Delivery (Oxygen): Room air (10/05/22 06:50:00) Early Warning Score: 2 (10/05/22 10:11:42) ? Physical Exam Constitutional: Pleasant and cooperative, not in acute distress. Does appear mildly fatigued. Head: Normocephalic. Eyes: Extraocular muscles intact. Ear, Nose and Throat: Oropharynx clear, mucous membranes moist. Ears and nose without masses, lesions or deformities. Trachea midline. Neck: Supple, Full range of motion. Respiratory: Non-labored breathing, breathing comfortably on room air. Lungs clear to auscultation bilaterally without wheezing, rales, rhonchi, or crackles. Cardiovascular:??Normal rate, regular rhythm.??No murmurs, rubs or gallops. Gastrointestinal: Abdomen soft, non-tender, non-distended. Normal bowel sounds. Genitourinary: No suprapubic tenderness. Neurologic: Patient is alert, attentive, and oriented to time and place. Speech is clear and fluentwith good comprehension. CNII: Visual garcia are full to confrontation. Pupils are round and reactive to light. CNIII, IV, : At primary gaze there is no eye deviation. EOM are intact without ptosis. Normal convergence and no nystagmus appreciated. CNV: Facial sensation is intact to light touch inall 3 divisions bilaterally. CNVII: Face is symmetric with normal eye closure and smile. CNVIII: Hearing is normal/responsive to normal voice. CNIX&X: Palate elevates symmetrically; phonation is normal. CNXI: Head turning and shoulder shrug are strong and symmetric. CNXII: Tongue protrudes midline with normal movements and no atrophy. MOTOR: No pronator drift of out-stretched arm. Muscle bulkand tone are normal. Strength is full-5/5-bilaterally. SENSORY: Sensation to light touch intact bilaterally in upper and lower extremities. COORDINATION: [id number] normal b/l; there is no dysmetria appreciated. There are no abnormal or extraneous movements. Gait is steady with normal steps, base, arm swing, and turning but is using walker to ambulate for balance. Skin: No acute or concerning rashes or lesions. No petechiae or purpura.?? Musculoskeletal: No gross deformities. Normal range of motion, moving all 4 extremities spontaneously. Psychiatric: Normal mood and affect without obvious signs of anxiety or depression. _ Inpatient Medications Medications (15) Active SCHEDULED: (7) Aspirin 81 mg EC Tablet (aspirin 81 mg oral delayed release tablet) ??81 mg, By Mouth, Daily Baclofen 10 mg Tablet (baclofen 10 mg oral tablet) ??10 mg, By Mouth, Daily at bedtime Gabapentin 300 mg Capsule (gabapentin 300 mg oral capsule) ??600 mg, By Mouth, 2 times a day Levothyroxine 88 mcg Tablet (levothyroxine 0.088 mg oral tablet) ??88 mcg, By Mouth, Daily NaCl 0.9% Flush 3ml (NaCL 0.9% Flush) ??3 mL, IV Push, Every 8 hours Pantoprazole 40 mg EC Tablet (Protonix 40 mg oral delayed release tablet) ??40 mg, By Mouth, Daily Pramipexole 0.5 mg Tablet (pramipexole 0.5 mg oral tablet) ??1.5 mg, By Mouth, 3 times a day CONTINUOUS: (0) PRN: (8) Acetaminophen 325 mg Tablet (Acetaminophen Tablet) ??650 mg, By Mouth, Every 4 hours Dextromethorphan-Guaifenesin 20 mg-200 mg/10 mL Liqu UD (Robitussin DM Liquid) ??10 mL, By Mouth, Every 4 hours Melatonin 3 mg Tablet (Melatonin Tablet) ??3 mg, By Mouth, Daily at bedtime NaCl 0.9% Flush 3ml (NaCL 0.9% Flush) ??3 mL, IV Push, Every 8 hours Polyethylene Glycol 17 Gm Powder (MiraLax Powder) ??17 Gm 1 pack/packet, By Mouth, Daily Senna 8.6 mg / Docusate 50 mg tablet (Docusate/Senna Tablet) ??1 tablet, By Mouth, 2 times a day Simethicone 80 mg Chewable Tablet (Simethicone Tablet) ??80 mg, Chew, 3 times a day Trazodone 50 mg Tablet (traZODone 50 mg oral tablet) ??100 mg, By Mouth, Daily at bedtime ?? Results Recent Labs BLOOD COUNT & DIFF WBC 8.2 k/mm3 ()?? 10/05/2022 09:10 RBC 4.90 m/mm3 ()?? 10/05/2022 09:10 Hgb 14.5 Gm/dL ()?? 10/05/2022 09:10 Hct 45.9 % (High)?? 10/05/2022 09:10 MCV 93.7 femtoliters ()?? 10/05/2022 09:10 MCH 29.6 pg ()?? 10/05/2022 09:10 MCHC 31.6 g/dL (Low)?? 10/05/2022 09:10 Platelet Count 330 k/mm3 ()?? 10/05/2022 09:10 RDW-SD 48.8 femtoliters (High)?? 10/05/2022 09:10 MPV 9.9 femtoliters ()?? 10/05/2022 09:10 Nucleated RBC (Automated) 0.0 #/100 WBC'S ()?? 10/05/2022 09:10 Abs. NRBC 0.0 k/mm3 ()?? 10/05/2022 09:10 Abs. Neut 4.3 k/mm3 ()?? 10/04/2022 12:16 Abs. Lymph 2.0 k/mm3 ()?? 10/04/2022 12:16 Abs. Warrick 0.5 k/mm3 ()?? 10/04/2022 12:16 Abs. Eo 0.2 k/mm3 ()?? 10/04/2022 12:16 Abs. Baso 0.0 k/mm3 ()?? 10/04/2022 12:16 Neut % 60.0 % ()?? 10/04/2022 12:16 Lymph % 28.4 % ()?? 10/04/2022 12:16 Warrick % 7.6 % ()?? 10/04/2022 12:16 Eos % 3.2 % ()?? 10/04/2022 12:16 Baso % 0.4 % ()?? 10/04/2022 12:16 Imm Gran 0.4 % ()?? 10/04/2022 12:16 Abs. Imm Gran 0.0 k/mm3 ()?? 10/04/2022 12:16 ?? CHEM GENERAL Sodium 140 mmol/L ()?? 10/05/2022 09:10 Potassium 4.4 mmol/L ()?? 10/05/2022 09:10 Chloride 104 mmol/L ()?? 10/05/2022 09:10 Bicarbonate Level 29 mmol/L ()?? 10/05/2022 09:10 Anion Gap 7 ()?? 10/05/2022 09:10 Glucose Level 75 mg/dL ()?? 10/05/2022 09:10 BUN 15 mg/dL ()?? 10/05/2022 09:10 Creatinine-Blood 0.8 mg/dL ()?? 10/05/2022 09:10 Estimated GFR Creatinine 82 ML/MIN/1.73 M2 ()?? 10/05/2022 09:10 Calcium 9.2 mg/dL ()?? 10/04/2022 12:16 ?? ENDOCRINE/TUMOR MARKER TSH 0.87 uIU/mL ()?? 10/04/2022 12:16 ?? HEME OTHER Hold Blue Top SPECIMEN DISCARDED AFTER 4 HOURS. ()?? 10/04/2022 12:16 ?? LIPID STUDIES Cholesterol 133 mg/dL ()?? 10/05/2022 09:10 Triglycerides 90 mg/dL ()?? 10/05/2022 09:10 HDL Cholesterol 46 mg/dL ()?? 10/05/2022 09:10 LDL Cholesterol 69 mg/dL ()?? 10/05/2022 09:10 Non HDL Cholesterol 87 mg/dL ()?? 10/05/2022 09:10 ?? URINE OTHER Est Creatinine Clearance 49.25 mL/min ()?? 10/05/2022 09:44 ?? VIROLOGY COVID-19 by RT-PCR NEGATIVE ()?? 10/04/2022 17:40 Assessment/Plan 72-year-old female with a past medical history of hypothyroidism, restless leg syndrome, GERD who presents with near syncope, admitted for further work-up. ?? #Fatigue #Near syncope #Gait disturbance Patient presenting with??numerous episodes of recurrent near syncope over the past month. No recentillness or known sick contacts. Episodes??occur??both at rest and with exertion??without??known aggravating or alleviating??factors- will randomly become very fatigued, eyes start to roll in back of head but doesn't pass out. No associated symptoms- no nausea, diaphoresis, chest pain, palpitations, SOB, diarrhea, rash, hot flashes; sometimes feels dizzy but not really???Occasionally has headaches but don't seem to be related. Also endorsing occasional??gait instability where her legs just feel uncoordinated and ?weak. Does have neuropathy and restless leg syndrome. Does camp- no known tick bites. No rash, fevers, chills, night sweats, sore throat, nasal congestion. No numbness/tingling of extremities. CBC and BMP unremarkable. TSH w/n/l (on supplement), normal lipid panel. CT head nonacute, non-focal neurological exam. Orthostatic vitals unremarkable. No events on tele thus far. ?? Seems to be more fatigue than near syncope. ?? 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 CHRONIC STABLE/MEDICAL CONDITIONS: Hypothyroidism: Continue home Levothyroxine GERD: Continue home PPI Neuropathy: Continue home Gabapentin Restless leg syndrome: Continue??home Pramipexole ? [employer]: Code Status: FULL VTE ppx: Encourage ambulation Diet: Regular AM labs: none OMN: Work-up of near syncope/gait disturbance Dispo:??Likely home tomorrow, pending CTA head/neck and neuro recs ? Patient reviewed with supervising??attending Dr. Amin. ?? Christie Ruggiero, DO Internal Medicine, PGY-1 Pager# [phone] ?? * Eloisa LEWIS, Damian: PERFORM Event Display: Progress Note Hospital Authored Date: Attending Attestation:??I have seen and evaluated this patient. ??I have discussed the case and itsmanagement with the resident and agree with the findings and plan as documented in the resident???snote. * Julissa Patel RN: PERFORM, SIGN, VERIFY Event Display: Progress Note Hospital Authored Date: Patient: RUT MORALES Age: 72 years Sex: Female : 1950 Associated Diagnoses: None Author: Julissa Patel RN Findings Narrative/Incidental Pt arrived from ED A/Ox4, no SOB, no CP, V/S satble. SB on Tele, no c/o any pain or any discomfort.seen by MD. comfortable in slept all night. callbell within reach. will continue to monitor.. 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 Patient have discharge instructions, belongings, and CT Disc requested (picked up from Radiology OA desk per Boubacar MEYER). IVs removed no brody bleeding noted. Condition stable no distress noted. * Eloisa LEWIS, Damian: PERFORM Event Display: Discharge/Transfer Note Hospital Authored Date: Patient: ??RUT MORALES ? Age:??72 Years?Sex:??Female?:??1950?? Patient Information Discharge Location: [facility] Primary Care Physician: Annette Castillo NP Admit Date/Time: 10/04/22 10:42 Discharge Date:??10/05/2022 14:45 Discharge Disposition Discharge Disposition: Home: No Services Discharge Diagnosis Light headedness (R42) Central sleep apnea Constipation Diverticulosis Hypothyroidism Insomnia Lumbar spondylosis Osteopenia Radial head fracture, closed ?? _ Discharge Medications Aspirin (Aspirin Low Dose 81 mg oral delayed release tablet)?1?tab(s)?By Mouth?Daily Baclofen (baclofen 10 mg oral tablet)?1?tablet?By Mouth?Daily at bedtime Calcium And Vitamin D Combination (calcium (as carbonate)-vitamin D 500 mg-400 intl units oral tablet)?1?tab(s)?By Mouth?2 times a day?for 90?Days Gabapentin (gabapentin 600 mg oral tablet)?See Instructions?TAKE 1 TABLET BY MOUTH EVERY MORNING AND 1 TABLET EVERY NIGHT AT BEDTIME Levothyroxine (levothyroxine 0.088 mg oral tablet)?1?tab(s)?By Mouth?Daily?for 90?Days Pantoprazole (Protonix 40 mg oral delayed release tablet)?1?tab(s)?40?Milligram?By Mouth?Daily Pramipexole (pramipexole 1 mg oral tablet)?1.5?tab(s)?By Mouth?3 times a day Trazodone (traZODone 100 mg oral tablet)?1?tablet?By Mouth?Daily at bedtime ? Medications Started None Medications Discontinued None Doses Changed None Allergies Allergies ?(Active and Proposed Allergies Only) morphine? (Severity: Persistent Moderate, Onset: Unknown) ?Comments: nausea vomiting penicillins? (Severity: Unknown severity, Onset: Unknown) ? Future Appointments Saturday 3:00 PM EDT ?? With: Elvis Bolanos MD Where: [address] [address]- Status: Pending Hospital Course ??Ms. Morales is a 72-year-old female with a past medical history of hypothyroidism, restless leg syndrome, GERD who presents with near syncope.?Patient reports over the past??1 month she has been having intermittent episodes of??feeling lightheaded,??feels as though she may pass out.?? These episodes occur sitting at rest as well as??standing or with ambulation, she is unable to identify any aggravating or alleviating factors.??On the day prior to admit, she experienced??one of these episodes while she was sitting down, felt??significantly fatigued??and??felt her eyes rolling to the back of her head??and thought she may lose consciousness, though she did not.?? There was associated nausea but denies any vomiting.?? She reports that upon standing she felt lightheaded??and felt unsteady on her feet.?? Upon further questioning,??patient does report intermittent episodes of gait instability??occurring over the past month,??she reports it seems as though??her?? legs are not doing what I want them to do .?? She denied any unilateral weakness, numbness, or tingling of the extremities and denies any facial asymmetry, vision changes,??speech or swallowing difficulty. In the ER, patient was afebrile, heart rate 71 bpm, respirations 18, blood pressure 124/61, satting 98% on room air oxygen.?? Laboratory work-up revealed no leukocytosis, no anemia, no significant electrolyte disturbances, BUN 21, creatinine 0.7, TSH within normal limits.?? Given her recurrent episodes of near syncope medical but??it had a range of $90 per was requested for further evaluation and management. ?? #Fatigue #Near syncope #Gait disturbance Patient presenting with??numerous episodes of recurrent near syncope over the past month. No recentillness or known sick contacts. Episodes??occur??both at rest and with exertion??without??known aggravating or alleviating??factors- will randomly become very fatigued, eyes start to roll in back of head but doesn't pass out. No associated symptoms- no nausea, diaphoresis, chest pain, palpitations, SOB, diarrhea, rash, hot flashes; Does camp- no known tick bites. CBC and BMP unremarkable. TSH w/n/l (on supplement), normal lipid panel. CT head nonacute, non-focal neurological exam. Neurology consulted and recommended CT angiogram of the head and neck??which was unremarkable. Also recommended??Lyme antibody as well as vitamin B-12 level which has been ordered. Orthostatic vitals unremarkable. No events on tele for 24 hours. Patient reported apneic episodes at night??and neurology felt that could be a component of sleep apnea contributing to this. On detailed questioning patient reports??that she had a previous sleep study and she was given a CPAP machine. ??She is currently not using it??because it has a length of $90??a month. This was nearly 2 years ago and likely she needs a repeat sleep study. Neurology recommending referral back to sleep??clinic for further evaluation. ?? PLAN: -Continue home ASA -We will back to sleep clinic. ?? CHRONIC STABLE/MEDICAL CONDITIONS: Hypothyroidism: Continue home Levothyroxine GERD: Continue home PPI Neuropathy: Continue home Gabapentin Restless leg syndrome: Continue??home Pramipexole ? I met with patient's at the bedside and explained??on the test results that have done so far??and??nothing remarkable??.?? I also explained her??sleep apnea??could be contributing and we willrefer him back to the sleep clinic. ??She also preferred going home and so plans made for her??discharge. ?? No changes have been made in her medications. ?? Objective Assessment and Plan ? Vital Signs?? Temperature: 98 DegF (10/05/22 10:53:00) Temperature Route: Oral (10/05/22 10:53:00) Pulse Rate: 58 bpm (10/05/22 10:53:00) Pulse Rate, Lyin bpm (10/05/22 08:42:00) Systolic Blood Pressure, Lyin mm Hg (10/05/22 08:42:00) Diastolic Blood Pressure, Lyin mm Hg (10/05/22 08:42:00) Pulse Rate, Sittin bpm (10/05/22 08:42:00) Systolic Blood Pressure, Sittin mm Hg (10/05/22 08:42:00) Diastolic Blood Pressure, Sittin mm Hg (10/05/22 08:42:00) Pulse Rate, Standin bpm (10/05/22 08:42:00) Systolic Blood Pressure, Standin mm Hg (10/05/22 08:42:00) Diastolic Blood Pressure, Standin mm Hg (10/05/22 08:42:00) Respiratory Rate: 17 br/min (10/05/22 10:53:00) Systolic Blood Pressure: 110 mm Hg (10/05/22 10:53:00) Diastolic Blood Pressure: 66 mm Hg (10/05/22 10:53:00) Blood pressure sites: Arm, left (10/05/22 10:53:00) Mean Arterial Pressure: 81 mm Hg (10/05/22 10:53:00) Pulse Pressure: 44 mm Hg (10/05/22 10:53:00) Oxygen Saturation: 96 % (10/05/22 10:53:00) Mode of Delivery (Oxygen): Room air (10/05/22 10:53:00) Early Warning Score: 0 (10/05/22 13:26:41) ? . Physical Exam Constitutional: Alert, in no distress. Mental Status: Oriented to person, place and time. Head: Normocephalic. Eyes: Pupils are equal, round and reactive to light. Ear, Nose and Throat: Oropharynx clear, mucous membranes moist. Neck: Supple, Full range of motion. Respiratory: Clear to auscultation. No wheezing, rales or rhonchi. Cardiovascular: S1 S2 regular. No murmurs, rubs or gallops. Gastrointestinal: Abdomen soft, non-tender, non-distended. Normal bowel sounds. Genitourinary: No costovertebral angle tenderness. Neurologic: Cranial nerves II-XII grossly intact. No focal neurological deficits. Psychiatric: Normal mood and affect Pending Results Add On Lab Order ordered on 10/05/2022 Add On Lab Order ordered on 10/05/2022 CT Angio Head ordered on 10/04/2022 CT Angio Neck ordered on 10/04/2022 Lyme Disease Ab Screen ordered on 10/05/2022 Lyme Disease Ab Screen ordered on 10/05/2022 Sedimentation Rate ordered on 10/05/2022 Follow-Up Appointments Added Follow Up ?Time Frame ?Comments Please lkeep your appt on 10/09/22 with Annette Castillo HVAC ENGINEER, your PCP Annette Castillo [facility] Face to Face ^HomeHealthFTF Results Discharge Labs BLOOD COUNT & DIFF WBC 8.2 k/mm3 ()?? 10/05/2022 09:10 RBC 4.90 m/mm3 ()?? 10/05/2022 09:10 Hgb 14.5 Gm/dL ()?? 10/05/2022 09:10 Hct 45.9 % (High)?? 10/05/2022 09:10 MCV 93.7 femtoliters ()?? 10/05/2022 09:10 MCH 29.6 pg ()?? 10/05/2022 09:10 MCHC 31.6 g/dL (Low)?? 10/05/2022 09:10 Platelet Count 330 k/mm3 ()?? 10/05/2022 09:10 RDW-SD 48.8 femtoliters (High)?? 10/05/2022 09:10 MPV 9.9 femtoliters ()?? 10/05/2022 09:10 Nucleated RBC (Automated) 0.0 #/100 WBC'S ()?? 10/05/2022 09:10 Abs. NRBC 0.0 k/mm3 ()?? 10/05/2022 09:10 Abs. Neut 4.3 k/mm3 ()?? 10/04/2022 12:16 Abs. Lymph 2.0 k/mm3 ()?? 10/04/2022 12:16 Abs. Warrick 0.5 k/mm3 ()?? 10/04/2022 12:16 Abs. Eo 0.2 k/mm3 ()?? 10/04/2022 12:16 Abs. Baso 0.0 k/mm3 ()?? 10/04/2022 12:16 Neut % 60.0 % ()?? 10/04/2022 12:16 Lymph % 28.4 % ()?? 10/04/2022 12:16 Warrick % 7.6 % ()?? 10/04/2022 12:16 Eos % 3.2 % ()?? 10/04/2022 12:16 Baso % 0.4 % ()?? 10/04/2022 12:16 Imm Gran 0.4 % ()?? 10/04/2022 12:16 Abs. Imm Gran 0.0 k/mm3 ()?? 10/04/2022 12:16 ?? CHEM GENERAL Sodium 140 mmol/L ()?? 10/05/2022 09:10 Potassium 4.4 mmol/L ()?? 10/05/2022 09:10 Chloride 104 mmol/L ()?? 10/05/2022 09:10 Bicarbonate Level 29 mmol/L ()?? 10/05/2022 09:10 Anion Gap 7 ()?? 10/05/2022 09:10 Glucose Level 75 mg/dL ()?? 10/05/2022 09:10 Hemoglobin A1C (Monitoring) 5.3 % ()?? 10/05/2022 09:10 BUN 15 mg/dL ()?? 10/05/2022 09:10 Creatinine-Blood 0.8 mg/dL ()?? 10/05/2022 09:10 Estimated GFR Creatinine 82 ML/MIN/1.73 M2 ()?? 10/05/2022 09:10 Calcium 9.2 mg/dL ()?? 10/04/2022 12:16 C-Reactive Protein <0.3 mg/dL ()?? 10/05/2022 09:10 ?? ENDOCRINE/TUMOR MARKER TSH 0.87 uIU/mL ()?? 10/04/2022 12:16 ? HEME OTHER Hold Blue Top SPECIMEN DISCARDED AFTER 4 HOURS. ()?? 10/04/2022 12:16 ? LIPID STUDIES Cholesterol 133 mg/dL ()?? 10/05/2022 09:10 Triglycerides 90 mg/dL ()?? 10/05/2022 09:10 HDL Cholesterol 46 mg/dL ()?? 10/05/2022 09:10 LDL Cholesterol 69 mg/dL ()?? 10/05/2022 09:10 Non HDL Cholesterol 87 mg/dL ()?? 10/05/2022 09:10 ? URINE OTHER Est Creatinine Clearance 49.25 mL/min ()?? 10/05/2022 09:44 ? VIROLOGY COVID-19 by RT-PCR NEGATIVE ()?? 10/04/2022 17:40 ? 25??minutes spent on discharge * Boubacar Dumont RN: PERFORM, MODIFY Event Display: Patient Education/Instruction Authored Date: [id number] Inpatient Adult Discharge Instructions [place] [id number] Name: RUT MORALES : 1950 Visit: 10/04/2022 10:42:00 Current Date: 10/05/2022 15:43 Account: [id number] Inpatient Adult Discharge Instructions We would like to thank you for allowing us to assist you with your healthcare needs. The following includes patient education materials and information regarding your injury/illness. Our entire staffstrives to provide an excellent experience for our patients and their families. PLEASE ENSURE YOU FOLLOW-UP PER THE INSTRUCTIONS BELOW! ?? YOUR OPINION IS IMPORTANT TO US! Please complete the survey you may receive by mail or email. Your feedback will be used to make improvements to the healthcare experiences of our patients and their families. Surveys are administered by [employer] ?? If further treatment with your primary care physician or another doctor is recommended, it is important for you to keep the appointment. Call your primary care physician or return to the Emergency Department immediately if your condition worsens, fails to improve, or new symptoms develop. If you need to find a doctor, you can call [facility] [employer] [facility] for a referral at [phone] or toll free at [phone] or log in to [email or web address].. ?? You can view and manage your care through the patient portal or by using a health care joesph of your choosing. [employer] is a website that allows you to securely view your medical information including your hospital discharge summary, office visit summaries, medications and follow-up visits. You can also request appointments, renew medications, and request access to your medical information using a health care joesph of your choosing, or just ask a question. You can enroll at [email or web address] or register during your next office visit. You have been discharged from [facility], Patient Care Unit: D3B. If you have any questions regarding these instructions after you leave, please call us and we will be happy to assist you. [facility] Your Care Team Attending Physician Damian Amin MD Discharging Providers Damian Amin MD Reason for Admission Near syncope Your Diagnosis Light headedness Tests Performed Below is a partial list of the tests performed during your hospitalization. You may have had other tests and procedures not included in this list. Please discuss all test results with your provider. Basic Metabolic Panel BUN C-REACTIVE PROTEIN CBC CBC w/ Differential COVID-19 (Novel Coronavirus), Rapid PCR Creatinine Electrolytes Glucose Level Hemoglobin A1c, (Diagnostic) Hold Blue Top Tube Lipid Panel TSH with T4 Reflex (Adults Only) VITAMIN B12 CT Angio Head CT Angio Neck CT Head/Brain W/O Contrast Primary Care Provider Annette Castillo NP Advance Directive Health Care Proxy on File Yes - Health Care Proxy Discharge Vitals Temperature: 97.6 DegF Height: 158 cm Pulse Rate:??54 bpm??Low Weight: 75.1 kg Respiratory Rate: 18 br/min Body Mass Index:??32.37 kg/m2??Critical Systolic Blood Pressure: 114 mm Hg Body surface area: 1.88 Diastolic Blood Pressure: 65 mm Hg ?? Oxygen Saturation: 100 % ?? Studies Pending All tests and labs ordered during this hospital stay have been completed unless listed below. Please discuss all pending results with your provider listed above in these instructions. ?? Add On Lab Order Lyme Disease Ab Screen (LYME AB W/REFLEX) Sedimentation Rate (SEDIMENTATION RATE,AUTOMATED) What to do next Instructions From Your Doctor Discharge Orders Scheduled Follow-Up Appointments Saturday 3:00 PM EDT ?? With: Elvis Bolanos MD Where: [address] [address]- Status: Pending You Need to Schedule the Following Appointments Follow Up with??Please lkeep your appt on 10/09/22 with Annette Castillo NP, your PCP Follow Up with??Annette Castillo Discharge Medications RUT MORALES :1950 Visit Date:10/04/2022 Medications: Please continue your medications until treatment is completed or stopped by your provider. Medications not listed below should be discontinued. Discuss any questions related to medications with your provider. What How Much When Instructions Next Dose Unchanged Aspirin (Aspirin Low Dose 81 mg oral delayed release tablet) 1 tab(s) Oral Daily 10/06/2022 0900 am Unchanged Baclofen (baclofen 10 mg oral tablet) 1 tab(s) Oral Daily at Bedtime 10/05/2022 9:00 pm Unchanged Calcium And Vitamin D Combination (calcium (as carbonate)-vitamin D 500 mg-400 intl unitsoral tablet) 1 tab(s) Oral Twice a day Duration: 90 Days 10/05/2022 9:00pm Unchanged Gabapentin (gabapentin 600 mg oral tablet) See instructions TAKE 1 TABLET BY MOUTH EVERY MORNING AND 1 TABLET EVERY NIGHT AT BEDTIME ?? 10/05/2022 9:00pm Unchanged Levothyroxine (levothyroxine 0.088 mg oral tablet) 1 tab(s) Oral Daily Duration: 90 Days 10/06/2022 0700 am on an empty stomach Unchanged Pantoprazole (Protonix 40 mg oral delayed release tablet) 1 tab(s) Oral Daily 10/06/2022 0900 am Unchanged Pramipexole (pramipexole 1 mg oral tablet) 1.5 tab(s) Oral 3 times a day 10/05/2022 9:00pm Unchanged Trazodone (traZODone 100 mg oral tablet) 1 tab(s) Oral Daily at Bedtime 10/05/2022 9:00pm ?? What How Much When Why Comments Stop Taking Celecoxib (CeleBREX 200 mg oral capsule) 1 capsule Oral Twice a day Duration: 14 Days Until mail order is delivered ?? Stop Taking Durable Medical Equipment (Compression Stockings) See instructions surgical, knee length 20-30 mm Hg ?? Stop Taking Durable Medical Equipment (CPAP EQUIPMENT) See instructions CPAP EQUIPMENT MASKING, TUBING, FILTERS, HEAD GEAR, CHIN STRAP, WATER CHAMBER ?? Stop Taking Durable Medical Equipment (CPAP MACHINE) See instructions CPAP MACHINE USE NIGHTLY FOR TRAE DX CENTRAL SLEEP APNEA CPAP 6 with a heated humidifier. Recommend ordering a machine with compliance data capabilities andfollowing residual AHI. ?? Stop Taking Miscellaneous Rx (OYSTER SHELL CALCIUM-VIT D TAB) 1 tab(s) Oral Twice a day Stop Taking Miscellaneous Rx (OYSTER SHELL CALCIUM-VIT D TAB) 1 tab(s) Oral Twice a day Stop Taking Multivitamin With Minerals Oral Stop Taking Ubiquinone (CoQ10 300 mg oral capsule) 1 capsule Oral Daily Cramps of lower extremity Duration: 30 Days Test Results Below is a partial list of the most recent Laboratory test results done prior to this discharge. You may have had other tests and procedures not included in this list. Please discuss all test resultswith your provider. Est Creatinine Clearance - 49.25 mL/min (10/05/2022) Basic Metabolic Panel (10/04/2022) ???Sodium - 138 mmol/L???Potassium - 4.2 mmol/L???Chloride - 104 mmol/L???Bicarbonate Level - 27 mmol/L???Anion Gap - 7???Glucose Level - 99 mg/dL???BUN - 21 mg/dL???Creatinine-Blood - 0.7 mg/dL???Estimated GFR Creatinine - 89 ML/MIN/1.73 M2???Calcium - 9.2 mg/dL BUN (10/05/2022) ???BUN - 15 mg/dL C-REACTIVE PROTEIN (10/05/2022) ? ?C-Reactive Protein - <0.3 mg/dL CBC (10/05/2022) ???WBC - 8.2 k/mm3???RBC - 4.90 m/mm3???Hgb - 14.5 Gm/dL???Hct - 45.9 %???MCV - 93.7 femtoliters???MCH - 29.6 pg???MCHC - 31.6 g/dL???Platelet Count - 330 k/mm3???RDW-SD - 48.8 femtoliters???MPV - 9.9 femtoliters???Nucleated RBC (Automated) - 0.0 #/100 WBC'S???Abs. NRBC - 0.0 k/mm3 CBC w/ Differential (10/04/2022) ???WBC - 7.1 k/mm3???RBC - 4.69 m/mm3???Hgb - 13.5 Gm/dL???Hct - 43.4 %???MCV - 92.5 femtoliters???MCH - 28.8 pg???MCHC - 31.1 g/dL???Platelet Count - 323 k/mm3???RDW-SD - 47.7 femtoliters???MPV - 10.1 femtoliters???Nucleated RBC (Automated) - 0.0 #/100 WBC'S???Abs. NRBC - 0.0 k/mm3???Abs. Neut - 4.3 k/mm3???Abs. Lymph - 2.0 k/mm3???Abs. Warrick - 0.5 k/mm3???Abs. Eo - 0.2 k/mm3???Abs. Baso - 0.0 k/mm3???Neut % - 60.0 %???Lymph % - 28.4 %???Warrick % - 7.6 %???Eos % - 3.2 %???Baso % - 0.4 %???Imm Gran - 0.4 %???Abs. Imm Gran - 0.0 k/mm3 COVID-19 (Novel Coronavirus), Rapid PCR (10/04/2022) ???COVID-19 by RT-PCR - NEGATIVE Creatinine (10/05/2022) ???Creatinine-Blood - 0.8 mg/dL???Estimated GFR Creatinine - 82 ML/MIN/1.73 M2 Electrolytes (10/05/2022) ???Sodium - 140 mmol/L???Potassium - 4.4 mmol/L???Chloride - 104 mmol/L???Bicarbonate Level - 29 mmol/L???Anion Gap - 7 Glucose Level (10/05/2022) ???Glucose Level - 75 mg/dL Hemoglobin A1c, (Diagnostic) (10/05/2022) ???Hemoglobin A1C (Monitoring) - 5.3 % Hold Blue Top Tube (10/04/2022) ???Hold Blue Top - SPECIMEN DISCARDED AFTER 4 HOURS. Lipid Panel (10/05/2022) ???Cholesterol - 133 mg/dL???Triglycerides - 90 mg/dL???HDL Cholesterol - 46 mg/dL???LDL Cholesterol - 69 mg/dL???Non HDL Cholesterol - 87 mg/dL TSH with T4 Reflex (Adults Only) (10/04/2022) ???TSH - 0.87 uIU/mL VITAMIN B12 (10/05/2022) ???Vitamin B12 Level - 541 pg/mL Allergies (NKA means No Known Allergies) morphine penicillins Problems Active Problems??(17) Adjustment disorder with depressed mood?? Central sleep apnea?? Constipation?? Cough?? Diverticulosis?? Diverticulosis of colon?? Hypothyroidism?? Insomnia?? Internal hemorrhoids?? Left shoulder pain?? Lumbar spondylosis?? mild osteophytes?? Obese class I?? Osteopenia?? Pain in limb?? Radial head fracture, closed?? Wrist pain, right?? Education Materials Below is the list of Educational Leaflet Providered with your Discharge Instructions. Valuables and Belongings I fully understand and agree that [facility] accepts no responsibility for all my personal property including clothing, toilet articles, radios, jewelry, dentures, hearing aids, rings, money, or any other property that is in my possession or is brought to me after admission. I understand certain valuables may be placed in a hospital safe for a short period of time. I understand that the hospital is not liable for loss or damage due to accident, fire, or other natural occurrence while said property is in the safe. I accept full responsibility for any personal property that I keep with me, and will not hold the hospital responsible in case of loss or disappearance. I acknowledge that i have been encouraged to send valuables and belongings home. ?? Review of Valuable and Belonging List: With patient Date for Pt to Sign Valuables/Belongings: 10/04/22 20:32:00 ?? Other Discharge Information ? Pulmonary Rehab Status?? Pulmonary Rehab Discharge Status?? Respiratory Rate: 18 br/min ? Common Emergency Awareness Tips IS IT A STROKE? Act FAST and Check for these signs: FACE Does the face look uneven? ARM Does one arm drift down? SPEECH Does their speech sound strange? TIME Call at any sign of stroke ?? Heart Attack Signs Chest discomfort: Most heart attacks involve discomfort in the center of the chest and lasts more than a few minutes, or goes away and comes back. It can feel like uncomfortable pressure, squeezing, fullness or pain. Discomfort in upper body: Symptoms can include pain or discomfort in one or both arms, back, neck, jaw or stomach. Shortness of breath: With or without discomfort. Other signs: Breaking out in a cold sweat, nausea, or lightheaded. Remember, MINUTES DO MATTER. If you experience any of these heart attack warning signs, call to get immediate medical attention! ?? Smoking can increase your chances of developing chronic health problems and can cause harmful effects to other family members in your house. If you smoke, you are strongly encouraged to quit. Please call [facility] [employer] at [phone] or [phone]-[facility] ([phone]) or log in to [email or web address] for referrals to smoking cessation programs. ?? 881 Suicide & Crisis Lifeline is available 19/11 if you or someone you know needs to find a reason to keep living. By calling [phone] you'll be connected to a skilled, trained counselor at a crisis center in your area. INPATIENT DISCHARGE INSTRUCTIONS SIGNATURE PAGE RUT MORALES Location:[facility] Registration Date and Time:10/04/2022 10:42 EDT Primary Care Physician: Annette Castillo NP, Attending Physician: Damian Amin MD, I RUT MORALES, have received the above patient education materials/instructions and have verbalized understanding. If ambulance or transport services are being used I further acknowledge being given a choice of service. ?? If you need to contact me, please call me at this number: . Patient/Humanities Professor Name: Patient/Humanities Professor Signature: Relationship to Patient: Witness Name/Signature: Date: * Damian Amin MD: PERFORM, SIGN, VERIFY Event Display: Patient Education Handout Authored Date: [id number] * Boubacar Dumont RN: PERFORM Event Display: Patient Education Leaflets Authored Date: [id number] Understanding Dizziness, Balance Problems, and Fainting ?? 28258 Understanding Dizziness, Balance Problems, and Fainting Balance is a group effort of the eyes, inner ear, joints, and muscles. They each send signals to the brain about body position and head movement. Then the brain uses this information to achieve balance. When the brain receives conflicting signals, or when there is a problem with blood flow, dizziness or fainting can happen. The eyes, inner ear, joints, and muscles send signals to the brain to achieve balance. Vertigo Vertigo is the feeling of spinning, tilting, falling or feeling off balance that may occur with nausea or vomiting. It may happen if the brain receives conflicting balance signals. Vertigo is often caused by a problem in the inner ear. Problems include changes in inner ear structures, infection, swelling, or excess fluid. Sometimes vertigo is due to a brain problem, such as migraine, stroke, or tumor. ?? Disequilibrium Disequilibrium is the feeling of imbalance without a sense of spinning. It may happen if the signalpath between the body and brain is disrupted. There are many causes of disequilibrium, including diabetes, anemia, head injury, and aging. ?? Fainting (Syncope) Syncope is losing consciousness or fainting. The brain needs oxygen-rich blood to function. The heart pumps that blood to the brain. If there is a problem with the heart, blood flow (such as low blood pressure),??or blood vessels, you may faint. Fainting is most often due to prolonged standing, straining to pass urine or stool, , standing up suddenly, use of certain medicines, and strong emotions (such as pain or fear). Sometimes, the cause can't be found. ?? Last Reviewed Date: 2021 ?? 2189-8615 [employer]. All rights reserved. This information is not intended as a substitute for professional medical care. Always follow your healthcare professional's instructions. ?? * Boubacar Dumont RN: PERFORM Event Display: Patient Education Leaflets Authored Date: [id number] Dizziness (Vertigo) and Balance Problems: Staying Safe ?? 42023 Dizziness (Vertigo) and Balance Problems: Staying Safe Falls or accidents can lead to pain, broken bones, a hospital stay, and a fear of future falls. Protect yourself and others by preparing for episodes. Simple steps can help you stay safe at home and wherever you go. Lighting Replace burned-out light bulbs to keep your home safe and well lit. Keep all areas well lit. This helps your eyes send the right signals to the brain. It also makes you less likely to trip and fall. If bright lights make symptoms worse, dim the lights or lie in a dark room until the dizziness passes. Then turn the lights back to their normal level. Tips: ??? Keep a flashlight by the bed. ??? Place nightlights in bathrooms and hallways. ??? Replace burned-out bulbs. Or have someone replace them for you. ?? Preventing falls To reduce your risk of falling: ??? Get out of bed or up from a??chair slowly. ??? Wear low-heeled shoes that fit properly and have slip-resistant soles. ??? Remove throw rugs. Clear clutter from walkways. ??? Use handrails on stairs. Have handrails installed or adjusted if needed. ??? Install grabbars in the bathroom. Don't use towel racks for balance. ??? Use a shower stool. Also put adhesive strips in the shower or on the tub floor. ??? Sit down to put on clothes or lace up shoes ?? Going out With a little time and preparation, you can get around safely. Tips: ??? Use a cane or walking aid if needed. ??? Give yourself plenty of time in case you start to get dizzy. ??? Ask your healthcare provider what type of exercise is safe for your condition. ??? Be patient. If an activity, such as walking through a crowded shop, causes you stress, you may not be ready for it yet. ?? Driving If you become dizzy or disoriented while driving, you could hurt yourself and others. That's why it's best not to drive until symptoms have gone away. In some cases, your license may be temporarily held until it's safe for you to drive again. For safety: ??? Ask a friend to drive for you. ??? Take public transportation. ??? Walk to stores and other places when you can. ?? Support Don't be afraid to ask for help running errands, cooking meals, and exercising. Whether it's a friend, loved one, neighbor, or stranger on the street, a little help can make a world of difference. Ask your healthcare provider for a list of community resources if you need help maintaining your independence at home. ?? Last Reviewed Date: 2021 ?? [employer]. All rights reserved. This information is not intended as a substitute for professional medical care. Always follow your healthcare professional's instructions. ?? CT Head WO contrast * JAMIL Ybarra S: Nitin Rehman MD: VERIFY Event Display: Result: Authored Date: [id number] CT Head/Brain W/O Contrast INDICATION: Reason: Headache(s); Clinical Question(s): Hematoma; Order Comment: TECHNIQUE: Noncontrast head CT using axial technique and reconstructed in axial and coronal planes.Iterative reconstruction techniques are used to optimize dose and image quality. CTDIvol Head: 45.83 mGy, DLP Head: 733 mGy*cm. COMPARISON: 10/07/2016. FINDINGS: Human Machine Interface Engineer view findings, lines and tubes: None. BRAIN AND EXTRA-AXIAL SPACES: No parenchymal hemorrhage, midline shift, or mass effect. Gallegos-white matter differentiation is wellpreserved. No acute infarct. Ventricles, sulci, and basilar cisterns are normal. Mild low-density white matter changes. No subarachnoid hemorrhage. No subdural or epidural collection. CALVARIUM, SKULL BASE, AND SOFT TISSUES: No fractures or suspicious bony lesions. The paranasal sinuses and mastoid air cells are clear. Visualized orbits and globes are intact. The extracranial soft tissues are unremarkable. IMPRESSION: No acute intracranial pathology. WSN: [id number] Ordering Physician: Nick Pettit Dictated By: Nitin Colvin MD Dictated Date/Time: 10/04/22 6:10 pm Reviewed By: Nitin Colvin MD Signed By: Nitin Colvin MD Signed Date/Time: 10/04/22 6:10 pm Transcribed By: LAYA Transcribed Date/Time: 10/04/22 6:06 pm CTA Neck vessels W contrast IV * JAMIL Ybarra S: Rochelle Howard MD: VERIFY Event Display: Result: Authored Date: [id number] CT Angio Head, CT Angio Neck Reason: TIA; Clinical Question(s): Infarction; Order Comment: / Infarction per EMR: Recurrent episodes of near-syncope, gait disturbance. TECHNIQUE: CT angiogram of the head and neck was performed after bolus administration of intravenous contrast. 100 mL of Omnipaque 300 was administered intravenously. Coronal and sagittal MIP reformatted images were obtained. Additional 3-D images were created on a separate workstation under concurrent supervision by the attending radiologist. All stenoses are measured using NASCET criteria. Weight-based protocol using automatic tube modulation was used to optimize exposure parameters. RADIATION DOSE PARAMETERS: CTDIvol Body: 13.77 mGy, DLP Body: 355 mGy*cm. COMPARISON: Noncontrast CT head performed concurrently. FINDINGS: CTA OF THE NECK: Arch: There is a two vessel aortic arch, with common origin of the brachiocephalic artery and left common carotid artery. There is mild atherosclerotic plaque of the aortic arch, but origins of the supra aortic vessels are patent. Right carotid system: The common carotid and cervical internal carotid arteries are patent. There is calcified atherosclerotic plaque at the carotid bifurcation, but no ICA stenosis (0%) by NASCET criteria. Left carotid system: The common carotid and cervical internal carotid arteries are patent. There iscalcified atherosclerotic plaque at the carotid bifurcation, but no ICA stenosis (0%) by NASCET criteria. There is a cigszf-ttww-wybzcjka vertebral artery system. Right vertebral: No significant stenosis. No evidence of dissection or aneurysm. Left vertebral: No significant stenosis. No evidence of dissection or aneurysm. Other: Soft tissues and bones: No evidence of lymphadenopathy or mass. Post thyroidectomy changes. Visualized lungs are blurred by motion artifact, without significant superimposed airspace opacity. No acute osseous abnormality. There is a sclerotic focus in the left C4 lateral mass involving the extending into the facet pillar. This is nonspecific. CTA OF THE HEAD: Anterior circulation: Bilateral intracranial ICAs demonstrate atherosclerotic calcification, without stenosis. Bilateral MENDY and MCA branches are patent. There is no significant stenosis, proximal cutoff, aneurysm, or vascular malformation. There is a hypoplastic right A1 segment. Posterior circulation: Bilateral intracranial vertebral arteries, the basilar artery, and bilateralsuperior cerebellar and posterior cerebral branches are patent. There is no significant stenosis, proximal cutoff, aneurysm, or vascular malformation. Veins: Major dural venous sinuses are patent. Other: Soft tissues and bones: No midline shift or effacement of the basal cisterns. No space-occupying hemorrhage. No territorial loss of gallegos-white matter differentiation. Orbits are unremarkable. No significant opacification in the paranasal sinuses or mastoid air cells. IMPRESSION: No proximal occlusion or high grade stenosis in the major arteries of the head and neck. WSN: [id number] Ordering Physician: Meño Steen Dictated By: Rochelle Velasco MD Dictated Date/Time: 10/05/22 2:48 pm Reviewed By: Rochelle Velasco MD Signed By: Rochelle Velasco MD Signed Date/Time: 10/05/22 2:48 pm Transcribed By: LAYA Transcribed Date/Time: 10/05/22 2:03 pm CTA Head vessels W contrast IV * BHSPowerscribe , CIS S: TRANSCRIBE Rochelle Velasco MD: VERIFY Event Display: Result: Authored Date: [id number] CT Angio Head, CT Angio Neck Reason: TIA; Clinical Question(s): Infarction; Order Comment: / Infarction per EMR: Recurrent episodes of near-syncope, gait disturbance. TECHNIQUE: CT angiogram of the head and neck was performed after bolus administration of intravenous contrast. 100 mL of Omnipaque 300 was administered intravenously. Coronal and sagittal MIP reformatted images were obtained. Additional 3-D images were created on a separate workstation under concurrent supervision by the attending radiologist. All stenoses are measured using NASCET criteria. Weight-based protocol using automatic tube modulation was used to optimize exposure parameters. RADIATION DOSE PARAMETERS: CTDIvol Body: 13.77 mGy, DLP Body: 355 mGy*cm. COMPARISON: Noncontrast CT head performed concurrently. FINDINGS: CTA OF THE NECK: Arch: There is a two vessel aortic arch, with common origin of the brachiocephalic artery and left common carotid artery. There is mild atherosclerotic plaque of the aortic arch, but origins of the supra aortic vessels are patent. Right carotid system: The common carotid and cervical internal carotid arteries are patent. There is calcified atherosclerotic plaque at the carotid bifurcation, but no ICA stenosis (0%) by NASCET criteria. Left carotid system: The common carotid and cervical internal carotid arteries are patent. There iscalcified atherosclerotic plaque at the carotid bifurcation, but no ICA stenosis (0%) by NASCET criteria. There is a tesaut-tmui-cwwovnpl vertebral artery system. Right vertebral: No significant stenosis. No evidence of dissection or aneurysm. Left vertebral: No significant stenosis. No evidence of dissection or aneurysm. Other: Soft tissues and bones: No evidence of lymphadenopathy or mass. Post thyroidectomy changes. Visualized lungs are blurred by motion artifact, without significant superimposed airspace opacity. No acute osseous abnormality. There is a sclerotic focus in the left C4 lateral mass involving the extending into the facet pillar. This is nonspecific. CTA OF THE HEAD: Anterior circulation: Bilateral intracranial ICAs demonstrate atherosclerotic calcification, without stenosis. Bilateral MENDY and MCA branches are patent. There is no significant stenosis, proximal cutoff, aneurysm, or vascular malformation. There is a hypoplastic right A1 segment. Posterior circulation: Bilateral intracranial vertebral arteries, the basilar artery, and bilateralsuperior cerebellar and posterior cerebral branches are patent. There is no significant stenosis, proximal cutoff, aneurysm, or vascular malformation. Veins: Major dural venous sinuses are patent. Other: Soft tissues and bones: No midline shift or effacement of the basal cisterns. No space-occupying hemorrhage. No territorial loss of gallegos-white matter differentiation. Orbits are unremarkable. No significant opacification in the paranasal sinuses or mastoid air cells. IMPRESSION: No proximal occlusion or high grade stenosis in the major arteries of the head and neck. WSN: [id number] Ordering Physician: Meño Steen Dictated By: Rochelle Velasco MD Dictated Date/Time: 10/05/22 2:48 pm Reviewed By: Rochelle Velasco MD Signed By: Rochelle Velasco MD Signed Date/Time: 10/05/22 2:48 pm Transcribed By: LAYA Transcribed Date/Time: 10/05/22 2:03 pm Patient Care team information Care Team Personnel Name: Angie Pope Position: [facility] Onco RN Member Role: Primary Care Nurse Name: Julissa Patel RN Position: [facility] RN Member Role: Primary Care Nurse Name: Boubacar Dumont RN Position: [facility] RN Member Role: Primary Care Nurse Name: Annette Castillo NP Position: [facility] PCO Associate Professional Member Role: PCP Address: Address: [address] [place] [id number]- Name: Grady Ortiz Position: [facility] Outreach Member Role: Lifetime Consulting Physician Address: Address: [address] [place] [id number]- [place] Name: *[facility], ED Attending Position: [facility] ED Attendings Patient Name: Nick Pettit MD Position: [facility] ED Medicine MD Member Role: ED Attending Physician Address: Address: [address] [place] [address] [place] [address]- Name: Nitin Abarca RN Position: [facility] ED RN W/OE and Tasks Member Role: Patient Care Provider Care Team Related Persons Name: ANUEL MORALES Address: home [address] [place] [address] Name: KELLEE PEÑA Address: home [address] [place] [address]
--- OUTSIDE RECORDS SUMMARY | 2024-02-06 12:40 | XMS_ITS | Continuity of Care Document ---
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 Pole Operator Name Role Phone Annette Castillo NP Primary Care Physician Encounter [facility] Date(s): 12/10/19 - 01/09/20 [facility] [address] [place] [id number]- [facility] Allergies, Adverse Reactions, Alerts Substance Reaction Severity Status morphine Active penicillins Active Immunizations Given and Recorded Vaccine Date Status Refusal Reason Influenza Virus Vaccine (oldterm) 12/12/18 Recorde d [...] [facility] 3[facility] Note[facility] 4Admin Note: immun records 5Admin Note: immun records 6Admin Note: immun records 7Admin Note: immun records 8Admin Note: immun records 9Admin Note: immun records 10Admin Note: immun records Medications aspirin 81 mg oral delayed release tablet 81 mg, By Mouth, Daily, # 90 tablet, Refills 0, Tot. Refills 0, Maintenance, 12/11/19 8:41:00 EDT, Route to Pharmacy Electronically, [id number], 158, cm, 11/12/19 15:02:00 EDT, Height, 77.2, kg, 05/20/19 20:41:00 EST, Dry Weight Start Date: 12/11/19 Stop Date: 03/10/20 Status: Ordered baclofen 10 mg oral tablet 10 mg, 1, tablet, By Mouth, Daily at bedtime, for 90 days, # 90 tablet, Refills 0, Tot. Refills 0, Physician Stop 03/10/20 8:40:00 EST, 12/11/19 8:40:00 EDT, Route to Pharmacy Electronically, [facility][id number], 158, cm, 11/12/19 15:02:00 EDT, Heig... Start Date: 12/11/19 Stop Date: 03/10/20 Status: Ordered calcium (as carbonate)-vitamin D 500 mg-400 intl units oral tablet 1 tablet, By Mouth, 2 times a day, # 180 tablet, 1 Refills, Maintenance, 10/27/19 9:07:00 EDT, Tablet, [id number], 1 tablet By Mouth 2 times a day, 158, cm, 09/30/19 10:10:00 EDT, Height, 77.2, kg, 05/20/19 20:41:00 EST, Dry Weight Start Date: 10/27/19 Status: Ordered CeleBREX 200 mg oral capsule 1 capsule = 200 mg, By Mouth, 2 times a day, Take with food to avoid upset stomach, # 180 capsule, 0 Refills, Maintenance, 10/19/19 12:33:00 EDT, Capsule, [facility] #[id number], 158, cm, 09/30/19 10:10:00 EDT, Height, 77.2, kg, 05/20/19 20:41:00 EST,... Start Date: 10/19/19 Stop Date: 01/17/20 Status: Ordered CeleBREX 200 mg oral capsule 1 capsule = 200 mg, By Mouth, 2 times a day, Until mail order is delivered, # 28 capsule, 0 Refills, Maintenance, 10/19/19 12:34:00 EDT, [facility]apsule, [id number], 158, cm, 09/30/19 10:10:00 EDT, Height, [...] 0 Refills, Maintenance, 11/12/19 16:33:00 EDT, Capsule, [facility]/pharmacy #[id number], 158, cm, 11/12/19 15:02:00 EDT, Height, [...] and followi... Start Date: 03/01/17 Status: Ordered duloxetine 60 mg oral enteric coated capsule 1 capsule = 60 mg, By Mouth, Daily, # 30 capsule, 3 Refills, Maintenance, 01/29/17 14:00:43, EC Capsule Start Date: 01/29/17 Status: Ordered gabapentin 300 mg oral capsule 300 mg, 1, capsule, By Mouth, Daily, 1 CAPSULE BY MOUTH DAILY IN THE MID AFTERNOON. SHE SHOULD CONTINUE GABAPENTIN 600 MG PRESCRIBED, # 90 capsule, Refills 0, Tot. Refills 0, Maintenance, :38:00 EDT, [facility] Start Date: 12/24/19 Stop Date: 03/23/20 Status: Ordered gabapentin 600 mg oral tablet See Instructions, TAKE 1 TABLET IN THE MORNING AND 1 TABLET AT BEDTIME. TAKE A 300MG CAPSULE IN THEMID-AFTERNOON, # 180 tablet, 0 Refills, 12/24/19 9:42:00 EDT, [id number], 158, cm, 11/12/19 15:02:00 EDT, Height, 77.2, kg, 05/20/19 20:41:0... Start Date: 12/24/19 Status: Ordered lactulose 10 gm/15 ml oral syrup 15 mL = 10 Gm, By Mouth, 2 times a day, PRN as needed for constipation, # 480 mL, 1 Refills, Maintenance, 07/27/19 12:04:00 EDT, Syrup, [facility]/pharmacy #[id number], 15 mL By Mouth 2 times a day,PRN:as needed for constipation, 157, cm, 07/23/19 9:32:00 EDT, Hei... Start Date: 07/27/19 Status: Ordered levothyroxine 0.088 mg oral tablet 1 tablet = 88 mcg, By Mouth, Daily, # 90 tablet, 1 Refills, Soft Stop, 09/28/19 11:17:00 EDT, [id number], 158, cm, 09/08/19 10:27:00 EDT, Height, 77.2, kg, 05/20/19 20:41:00 EST, Dry Weight Start Date: 09/28/19 Stop Date: 03/26/20 Status: Ordered Mirapex 1 mg oral tablet 1.5 tablet = 1.5 mg, By Mouth, 3 times a day, # 135 tablet, 4 Refills, Maintenance, 12/24/19 9:28:00 EDT, [id number], 158, cm, 11/12/19 15:02:00 EDT, Height, 77.2, kg, 05/20/19 20:41:00 EST, Dry Weight Start Date: 12/24/19 Stop Date: 05/22/20 Status: Ordered Multivitamin With Minerals By Mouth, 0 Refills, Maintenance Start Date: 04/02/11 Status: Ordered traZODone 100 mg oral tablet 100 mg, 1, tablet, By Mouth, Daily at bedtime, # 90 tablet, Refills 1, Tot. Refills 1, Soft Stop, 08/12/19 8:23:00 EDT, Route to Pharmacy Electronically, [facility]/pharmacy #[id number], 158, cm, 07/30/19 12:49:00 EDT, Height, 77.2, kg, 05/20/19 20:41:00 EST, Dry... Start Date: 08/12/19 Stop Date: 11/10/19 Status: Ordered Problem List Condition Effective Dates [...]
--- OUTSIDE RECORDS SUMMARY | 2024-02-06 12:40 | XMS_ITS | Continuity of Care Document ---
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 Name Role Phone Annette Castillo NP Primary Care Physician [facility]): 12/27/22 - 01/26/23 [facility] Adult [address] [place] [address]- Allergies, Adverse Reactions, Alerts Substance Reaction Severity [...] tetanus/diphtheria/pertussis, acel(Tdap) 12 09/29/07 Given 1Result Comment: [facility] [id number] 2Location History: pharmacy 3Location History: [facility] 4Admin Note: high dose done at [facility] 5Admin Note: immun records 6Admin Note: immun records 7Result Comment: [facility] 8Admin Note: immun records 9Admin Note: immun records 10Admin Note: immun records 11Admin Note: immun records 12Admin Note: immun records Medications Aspirin Low Dose 81 mg oral delayed release tablet 1 tablet, By Mouth, Daily, # 30 tablet, 5 Refills, Maintenance, 10/16/22 7:11:00 EDT, [facility]/pharmacy #1972, 158, cm, 10/10/22 9:38:00 EDT, Height, 80.8, kg, 10/04/22 20:27:00 EDT, Dry Weight Start Date: 10/16/22 Status: Ordered baclofen 10 mg oral tablet 1, tablet, By Mouth, Daily at bedtime, # 30 tablet, Refills 1, Tot. Refills 1, Maintenance, 10/16/22 13:33:00 EDT, Route to Pharmacy Electronically, [facility]/pharmacy #1972, 158, cm, 10/10/22 9:38:00 EDT,Height, 80.8, kg, 10/04/22 20:27:00 EDT, Dry Weight Start Date: 10/16/22 Status: Ordered BACLOFEN 10 MG TABLET BACLOFEN 10 MG TABLET, 1, tablet, By Mouth, Daily at bedtime, # 30 tablet, 1 Refills, Maintenance, 01/21/23 11:11:00 EDT, 158, cm, 10/10/22 9:38:00 EDT, Height, 80.8, kg, 10/04/22 20:27:00 EDT, Dry Weight Start Date: 01/21/23 Status: Ordered BACLOFEN 10 MG TABLET BACLOFEN 10 MG TABLET, 1, tablet, By Mouth, Daily at bedtime, # 30 tablet, 1 Refills, Maintenance, 12/18/22 8:44:00 EDT, 158, cm, 10/10/22 9:38:00 EDT, Height, 80.8, kg, 10/04/22 20:27:00 EDT, Dry Weight Start Date: 12/18/22 Status: Ordered calcium (as carbonate)-vitamin D 500 mg-400 intl units oral tablet 1 tablet, By Mouth, 2 times a day, # 180 tablet, 3 Refills, Maintenance, 10/16/22 17:51:00 EDT, Tablet, [facility], 1 tablet By Mouth 2 times a day,x90 days, 158, cm, 10/10/22 9:38:00 EDT, Height, 80.8, kg, 10/04/22 20:27:00 EDT, Dry Weight Start Date: 10/16/22 Stop Date: 10/11/23 Status: Ordered gabapentin 600 mg oral tablet See Instructions, TAKE 1 TABLET BY MOUTH EVERY MORNING AND 1 TABLET EVERY NIGHT AT BEDTIME, # 60 tablet, 0 Refills, Maintenance, 11/20/22 6:46:00 EDT, [facility], 158, cm, 10/10/22 9:38:00 EDT, Height, 80.8, kg, 10/04/22 20:27:00 EDT, Dry Weight Start Date: 11/20/22 Status: Ordered gabapentin 600 mg oral tablet See Instructions, TAKE 1 TABLET BY MOUTH EVERY MORNING AND 1 TABLET EVERY NIGHT AT BEDTIME, # 60 tablet, 0 Refills, Maintenance, 12/27/22 14:26:00 EDT, [facility], 158, cm, 10/10/22 9:38:00 EDT, Height, 80.8, kg, 10/04/22 20:27:00 EDT, Dry Weight Start Date: 12/27/22 Status: Ordered levothyroxine 0.088 mg oral tablet See Instructions, TAKE 1 TABLET BY MOUTH EVERY DAY, # 90 tablet, 1 Refills, Maintenance, 01/04/23 7:17:00 EDT, [id number], 158, cm, 10/10/22 9:38:00 EDT, Height, 80.8, kg, 10/04/22 20:27:00 EDT,Dry Weight Start Date: 01/04/23 Status: Ordered pramipexole 1 mg oral tablet 1.5 tablet, By Mouth, 3 times a day, # 135 tablet, 5 Refills, Maintenance, 09/18/22 8:41:00 EDT, [facility]/pharmacy #1972, 157.4, cm, 02/05/22 10:42:00 EDT, Height, [...] EDT, Route to Pharmacy Electronically, [id number], 157.4, cm, 02/05/22 10:42:00 EDT, Height, 77.6, [...] CT 2Dexa 2014 osteopenia 3last dexa 2013 Social History Social History Type Response Smoking Status Never (less than 100 in lifetime) entered on: 11/09/20 Sex Patient Care team information Care Team Personnel Name: Meri Popericia Position: [facility] Onco RN Member Role: Primary Care Nurse Name: Julissa Patel RN Position: [facility] RN Member Role: Primary Care Nurse Name: Boubacar Dumont RN Position: [facility] RN Member Role: Primary Care Nurse Name: Annette Castillo NP Position: [facility] PCO Associate Professional Member Role: PCP Address: Address: [address] [place] [address]- Name: Grady Ortiz Position: [facility] Outreach Member Role: Lifetime Consulting Physician Address: Address: [address] [place] [id number] Care Team Related Persons Name: ANUEL PARKER Address: [address] [place] [address] Name: ANUEL GU Address: [address] [place] [address] Name: KELLEE PEÑA Address: [address] [place] [address]
--- OUTSIDE RECORDS SUMMARY | 2024-02-06 12:40 | XMS_ITS | Continuity of Care Document ---
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 Name Role Phone Annette Castillo NP Primary Care Physician [facility] 03/18/23 - 04/17/23 [facility] Adult [address] [place] [address]- Allergies, Adverse Reactions, Alerts Substance Reaction Severity Status morphine 1 Persistent Moderate Active penicillins Active 1nausea vomiting Immunizations Given and Recorded Vaccine Date Status Refusal Reason influenza virus vaccine, inactivated 12/27/22 Mango rded influenza virus vaccine, inactivated 1 02/05/22 Gi [...] virus vaccine, inactivated 6 01/24/12 Gi shakira [id number] 12y+ bivalent booster vax 03/02/22 Recorded SARS-CoV-2 (COVID-19) mRNA BNT-162b2 vac 03/30/21 Recorded [...] tetanus/diphtheria/pertussis, acel(Tdap) 12 09/29/07 Given 1Result Comment: [facility] [id number] 2Location History: pharmacy 3Location History: [facility] 4Admin Note: high dose done at [facility] 5Admin Note: immun records 6Admin Note: immun records 7Result Comment: [facility] 8Admin Note: immun records 9Admin Note: immun records 10Admin Note: immun records 11Admin Note: immun records 12Admin Note: immun records Medications Aspirin Low Dose 81 mg oral delayed release tablet 1 tablet, By Mouth, Daily, # 30 tablet, 5 Refills, Maintenance, 10/16/22 7:11:00 EDT, [facility]/pharmacy #1972, 158, cm, 10/10/22 9:38:00 EDT, Height, 80.8, kg, 10/04/22 20:27:00 EDT, Dry Weight Start Date: 10/16/22 Status: Ordered baclofen 10 mg oral tablet 1, tablet, By Mouth, Daily at bedtime, # 90 tablet, Refills 1, Tot. Refills 1, Maintenance, 02/18/23 10:44:00 EDT, Route to Pharmacy Electronically, [facility]/pharmacy #1972, 156.5, cm, 02/18/23 10:06:00 EDT, Height, 77, kg, 02/04/23 0:27:00 EDT, Dry Weight Start Date: 02/18/23 Stop Date: 08/17/23 Status: Ordered BACLOFEN 10 MG TABLET BACLOFEN [...] 3 Refills, Maintenance, 10/16/22 17:51:00 EDT, Tablet, [facility]/pharmacy #1972, 1 tablet By Mouth 2 times a day,x90 days, 158, cm, 10/10/22 9:38:00 EDT, Height, 80.8, kg, 10/04/22 20:27:00 EDT, Dry Weight Start Date: 10/16/22 Stop Date: 10/11/23 Status: Ordered gabapentin 600 mg oral tablet See Instructions, TAKE 1 TABLET BY MOUTH EVERY MORNING AND 1 TABLET EVERY NIGHT AT BEDTIME, # 60 tablet, 0 Refills, Maintenance, 04/15/23 10:12:00 EST, [facility]/pharmacy #1972, 156.5, cm, 02/18/23 10:06:00 EDT, Height, 77, kg, 02/04/23 0:27:00 EDT, Dry Weight Start Date: 04/15/23 Status: Ordered levothyroxine 0.088 mg oral tablet See Instructions, TAKE 1 TABLET BY MOUTH EVERY DAY, # 90 tablet, 1 Refills, Maintenance, 01/04/23 7:17:00 EDT, [facility], 158, cm, 10/10/22 9:38:00 EDT, Height, 80.8, kg, 10/04/22 20:27:00 EDT,Dry Weight Start Date: 01/04/23 Status: Ordered meloxicam 15 mg oral tablet 1 tablet = 15 mg, By Mouth, Daily, # 30 tablet, 0 Refills, Maintenance, 02/06/23 15:50:00 EDT, Tablet, [facility]/pharmacy #1972, Partial fill upon patient request if the prescription is for a schedule II opioid drug., 158, cm, 02/06/23 15:24:00 EDT, Height,... Start Date: 02/06/23 Stop Date: 03/06/23 Status: Ordered pramipexole 1 mg oral tablet [...] tablet, Refills 1, Tot. Refills 1, Maintenance, 03/14/23 15:20:00 EST, Route to Pharmacy Electronically, [facility]/pharmacy #1972, 156.5, cm, 02/18/23 10:06:00 EDT, Height, 77, kg, 02/04/23 0:27:00 EDT, Dry Weight Start Date: 03/14/23 Status: Ordered Problem List Condition Confirmation Course [...] Care Team Personnel Name: Angie Pope Position: [facility] Onco RN Member Role: Primary Care Nurse Name: Julissa Patel RN Position: [facility] RN Member Role: Primary Care Nurse Name: Olga Brooke RN Position: [facility] RN Member Role: Primary Care Nurse Name: Annette Castillo NP Position: [facility] PCO Associate Professional Member Role: PCP Address: Address: [address] [place] [address]- Name: Grady Ortiz Position: [facility] Outreach Member Role: Lifetime Consulting Physician Address: Address: [address] [place] [address]- Care Team Related Persons Name: KELLEE BARRAGAN Name: ANUEL PARKER Address: [address] [place] [address] Name: ANUEL GU Address: [address] [place] [address] Name: KELLEE PEÑA Address: [address] [place] [address]
--- OUTSIDE RECORDS SUMMARY | 2024-02-06 12:40 | XMS_ITS | Continuity of Care Document ---
Author Organization [facility] Adult Address [address] [place] [address]- Care Team Providers Care Director Patient Accounting Name Role Phone Annette Castillo NP Primary Care Physician [facility] 02[facility]23 - 03/06/23 [facility] Adult [address] [place] [address]- Allergies, Adverse Reactions, Alerts Substance Reaction Severity [...] virus vaccine, inactivated 6 01/24/12 Gi shakira [id number] 12y+ bivalent booster vax 03/02/22 Recorded SARS-CoV-2 [...] tetanus/diphtheria/pertussis, acel(Tdap) 12 09/29/07 Given 1Result Comment: [facility] [phone] 2Location History: pharmacy 3Location History: [facility] 4Admin Note: high dose done at [facility] 5Admin Note: immun records 6Admin Note: immun records 7Result Comment: [facility] 8Admin Note: immun records 9Admin Note: immun records 10Admin Note: immun records 11Admin Note: immun records 12Admin Note: immun records Medications Aspirin Low Dose 81 mg oral delayed release tablet 1 tablet, By Mouth, Daily, # 30 tablet, 5 Refills, Maintenance, 10/16/22 7:11:00 EDT, [facility]/pharmacy #1972, 158, cm, 10/10/22 9:38:00 EDT, Height, 80.8, kg, 10/04/22 20:27:00 EDT, Dry Weight Start Date: 10/16/22 Status: Ordered baclofen 10 mg oral tablet 1, tablet, By Mouth, Daily at bedtime, # 90 tablet, Refills 1, Tot. Refills 1, Maintenance, 02/18/23 10:44:00 EDT, Route to Pharmacy Electronically, [facility]/pharmacy #1972, 156.5, cm, 02/18/23 10:06:00 EDT, [...] 3 Refills, Maintenance, 10/16/22 17:51:00 EDT, Tablet, [facility]/pharmacy #1972, 1 tablet By Mouth 2 times a day,x90 days, 158, cm, 10/10/22 9:38:00 EDT, Height, 80.8, kg, 10/04/22 20:27:00 EDT, Dry Weight Start Date: 10/16/22 Stop Date: 10/11/23 Status: Ordered gabapentin 600 mg oral tablet See Instructions, TAKE 1 TABLET BY MOUTH EVERY MORNING AND 1 TABLET EVERY NIGHT AT BEDTIME, # 60 tablet, 0 Refills, Maintenance, 02/05/23 11:14:00 EDT, [facility], 158, cm, 02/04/23 0:27:00 EDT,Height, 77, kg, 02/04/23 0:27:00 EDT, Dry Weight Start Date: 02/05/23 Status: Ordered levothyroxine 0.088 mg oral tablet See Instructions, TAKE 1 TABLET BY MOUTH EVERY DAY, # 90 tablet, 1 Refills, Maintenance, 01/04/23 7:17:00 EDT, [facility], 158, cm, 10/10/22 9:38:00 EDT, Height, 80.8, kg, 10/04/22 20:27:00 EDT,Dry Weight Start Date: 01/04/23 Status: Ordered meloxicam 15 mg oral tablet 1 tablet = 15 mg, By Mouth, Daily, # 30 tablet, 0 Refills, Maintenance, 02/06/23 15:50:00 EDT, Tablet, [facility]/pharmacy #1972, Partial fill upon patient request if the prescription is for a schedule II opioid drug., 158, cm, 02/06/23 15:24:00 EDT, Height,... Start Date: 02/06/23 Stop Date: 03/06/23 Status: Ordered pramipexole 1 mg oral tablet 1.5 tablet, By Mouth, 3 times a day, # 135 tablet, 5 Refills, Maintenance, 09/18/22 8:41:00 EDT, [facility]/pharmacy #1972, 157.4, cm, 02/05/22 10:42:00 [...] Daily at bedtime, # 90 tablet, Refills 0, Maintenance, 02/05/23 3:59:00 EDT, Route to Pharmacy Electronically, [facility], 158, cm, 02/04/23 0:27:00 EDT, Height, 77, kg, 02/04/23 0:27:00 EDT, Dry Weight Start Date: 02/05/23 Status: Ordered Problem List Condition Confirmation Course [...] Care Team Personnel Name: Angie Pope Position: [facility] Onco RN Member Role: Primary Care Nurse Name: Julissa Patel RN Position: [facility] RN Member Role: Primary Care Nurse Name: Olga Brooke RN Position: [facility] RN Member Role: Primary Care Nurse Name: Annette Castillo NP Position: [facility] PCO Associate Professional Member Role: PCP Address: Address: [address] [place] [address]- Name: Grady Ortiz Position: [facility] Outreach Member Role: Lifetime Consulting Physician Address: Address: [address] [place] [id number] Care Team Related Persons Name: KELLEE BARRAGAN Name: ANUEL PARKER Address: [address] [place] [address] Name: ANUEL GU Address: [address] [place] [address] Name: KELLEE PEÑA Address: [address] [place] [address]
--- OUTSIDE RECORDS SUMMARY | 2024-02-06 12:40 | XMS_ITS | Continuity of Care Document ---
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 Name Role Phone Annette Castillo NP Primary Care Physician [facility]): 11/09/20 - 12/09/20 [facility] Adult [address] [place] [address]- Allergies, Adverse Reactions, Alerts Substance Reaction Severity Status morphine 1 Persistent Moderate Active penicillins Active 1nausea vomiting Immunizations Given and Recorded Vaccine Date Status Refusal Reason SARS-CoV-2 (COVID-19) mRNA BNT-162b2 vac 1 08/20/20 Recorded SARS-CoV-2 (COVID-19) mRNA BNT-162b2 vac 07/30/20 Recorded influenza virus vaccine, inactivated 01/07/20 Mango rded [...] virus vaccine, inactivated 6 01/24/12 Gi shakira Influenza Virus Vaccine (oldterm) 01/02/20 Recorde d Influenza Virus Vaccine (oldterm) 12/12/18 Recorde d pneumococcal 13-valent vaccine 07/22/15 Given pneumococcal 23-valent vaccine 7 01/29/14 Given influenza virus vaccine, live 8 01/28/14 Given Zoster Vaccine Live 06/17/13 Recorded Zostavax (oldterm) 9 06/16/13 Given tetanus/diphtheria/pertussis, acel(Tdap) 10 10/22/11 Given tetanus/diphtheria/pertussis, acel(Tdap) 04/29/11 Recorded tetanus/diphtheria/pertussis, acel(Tdap) 11 09/29/07 Given 1[facility] 2Location History: [facility] 4Admin Note: high dose done at [facility] 5Admin Note: immun records 6Admin Note: immun records 7Admin Note: immun records 8Admin Note: immun records 9Admin Note: immun records 10Admin Note: immun records 11Admin Note: immun records Medications aspirin 81 mg oral delayed release tablet = 81 mg, By Mouth, Daily, # 30 tablet, 3 Refills, Maintenance, 11/07/20 15:07:00 EDT, [id number], 157, cm, 09/07/20 14:26:00 EDT, Height, 76.3, kg, 03/12/20 13:32:00 EST, Dry Weight Start Date: 11/07/20 Status: Ordered baclofen 10 mg oral tablet 10 mg, 1, tablet, By Mouth, Daily at bedtime, TAKE 1 TABLET BY MOUTH EVERYDAY AT BEDTIME, # 90 tablet, Refills 0, Tot. Refills 0, Maintenance, 11/09/20 8:38:00 EDT, Route to Pharmacy Electronically, [id number], Partial fill upon patient req... Start Date: 11/09/20 Stop Date: 02/07/21 Status: Ordered calcium (as carbonate)-vitamin D 500 mg-400 intl units oral tablet 1 tablet, By Mouth, 2 times a day, # 180 tablet, 3 Refills, Maintenance, 11/09/20 8:38:00 EDT, Tablet, [id number], 1 tablet By Mouth 2 times a day,x90 days, 157.5, cm, 11/09/20 8:24:00 EDT, Height, 76.3, kg, 03/12/20 13:32:00 EST, Dry Weight Start Date: 11/09/20 Stop Date: 11/04/21 Status: Ordered CeleBREX 200 mg oral capsule [...] 0 Refills, Maintenance, 11/12/19 16:33:00 EDT, [facility], [id number], 158, cm, 11/12/19 15:02:00 EDT, Height, [...] IN [place], # 180 tablet, 0 Refills, Maintenance, 09/27/20 14:38:00 EDT, [facility], 157, cm, 09/07/20 14:26:00 EDT, Height, 76.3, kg, 03/12... Start Date: 09/27/20 Status: Ordered ipratropium nasal 21 mcg/inh spray See Instructions, SPRAY 2 SPRAYS INTO BOTH NOSTRILS 2 TIMES A DAY FOR 30 DAYS, # 30 sprays, 0 Refills, Acute, [facility], 30, SPRAY 2 SPRAYS INTO BOTH NOSTRILS 2 TIMES A DAY FOR 30 DAYS, 157.5, cm, 11/09/20 8:24:00 EDT, Height, 76.3, kg, 03/12/20... Start Date: 12/02/20 Status: Ordered levothyroxine 0.088 mg oral tablet 1 tablet, By Mouth, Daily, # 30 tablet, 5 Refills, Maintenance, 12/01/20 11:20:00 EDT, [facility], 157.5, cm, 11/09/20 8:24:00 EDT, Height, 76.3, kg, 03/12/20 13:32:00 EST, Dry Weight Start Date: 12/01/20 Status: Ordered Mirapex 1 mg oral tablet 1.5 tablet = 1.5 mg, By Mouth, 3 times a day, # 135 tablet, 5 Refills, Maintenance, 09/09/20 8:27:00 EDT, [id number], 157, cm, 09/07/20 14:26:00 EDT, Height, 76.3, kg, 03/12/20 13:32:00 EST, Dry Weight Start Date: 09/09/20 Stop Date: 03/08/21 Status: Ordered Multivitamin With Minerals By Mouth, [...] EDT, Route to Pharmacy Electronically, [facility] #[id number], 157, cm, 06/30/20 10:07:00 EST, Height, 76.3, kg, 03/12/20 13:32:00 EST, Dry We... Start Date: 08/05/20 Status: Ordered Zofran 4 mg oral tablet 1 tablet = 4 mg, By Mouth, Every 8 hours, PRN Nausea & Vomiting, # 10 tablet, 0 Refills, Maintenance, 03/13/20 9:49:00 EST, Tablet, [facility], Partial fill upon patient request, 164, cm, 03/13/20 6:58:00 EST, Height, 76.3, kg, 03/12/20... Start Date: 03/13/20 Status: Ordered Problem List Condition Effective Dates Status Health Status Inform ant Adjustment disorder with dep ressed mood(Confirmed) Active Central sleep apnea(Confirmed) Active Constipation(Confirmed) Active Cough(Confirmed) Active Diverticulosis(Confirmed) Active Diverticulosis of colon(Confirmed) 1 Active Hypothyroidism(Confirmed) Active Insomnia(Confirmed) Active Internal hemorrhoids(Confirmed) Active Lumbar spondylosis(Confirmed) Active mild osteophytes(Confirmed) Active Osteopenia(Confirmed) 2, 3 Active Pain in limb(Confirmed) Active Left shoulder pain(Confirmed) Active 1severe in sigmoid, mild in descending colon by abdominal CT 2Dexa 2014 osteopenia 3last dexa 2013 Social History Social History Type Response Smoking Status Never (less than 100 in lifetime) entered on: 11/09/20 Sex
--- OUTSIDE RECORDS SUMMARY | 2024-02-06 12:40 | XMS_ITS | Continuity of Care Document ---
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 Name Role Phone Annette Castillo NP Primary Care Physician [facility] 10[facility]11[facility]22 - 11/10/22 [facility] Adult [address] [place] [address]- Allergies, Adverse Reactions, Alerts Substance Reaction Severity [...] 12 09/29/07 Given 1Result Comment: [facility] [id number] 2Location History: pharmacy 3Location History: [facility] 4Admin Note: high dose done at [facility] 5Admin Note: immun records 6Admin Note: immun records 7Result Comment: [facility] 8Admin Note: immun records 9Admin Note: immun records 10Admin Note: immun records 11Admin Note: immun records 12Admin Note: immun records Medications Aspirin Low Dose 81 mg oral delayed release tablet 1 tablet, By Mouth, Daily, # 30 tablet, 5 Refills, Maintenance, 10/16/22 7:11:00 EDT, [facility]/pharmacy #1972, 158, cm, 10/10/22 9:38:00 EDT, Height, 80.8, kg, 10/04/22 20:27:00 EDT, Dry Weight Start Date: 10/16/22 Status: Ordered baclofen 10 mg oral tablet 1, tablet, By Mouth, Daily at bedtime, # 30 tablet, Refills 1, Tot. Refills 1, Maintenance, 10/16/22 13:33:00 EDT, Route to Pharmacy Electronically, [facility]/pharmacy #1972, 158, cm, 10/10/22 9:38:00 EDT,Height, 80.8, kg, 10/04/22 20:27:00 EDT, Dry Weight Start Date: 10/16/22 Status: Ordered calcium (as carbonate)-vitamin D 500 mg-400 intl units oral tablet 1 tablet, By Mouth, 2 times a day, # 180 tablet, 3 Refills, Maintenance, 10/16/22 17:51:00 EDT, Tablet, [facility]/pharmacy #1972, 1 tablet By Mouth 2 times a day,x90 days, 158, cm, 10/10/22 9:38:00 EDT, Height, 80.8, kg, 10/04/22 20:27:00 EDT, Dry Weight Start Date: 10/16/22 Stop Date: 10/11/23 Status: Ordered gabapentin 600 mg oral tablet See Instructions, TAKE 1 TABLET BY MOUTH EVERY MORNING AND 1 TABLET EVERY NIGHT AT BEDTIME, # 60 tablet, 0 Refills, Maintenance, 10/09/22 15:29:00 EDT, [facility], 158, cm, 10/09/22 15:27:00 EDT, Height, 80.8, kg, 10/04/22 20:27:00 EDT, Dry We... Start Date: 10/09/22 Status: Ordered levothyroxine 0.088 mg oral tablet 1 tablet, By Mouth, Daily, for 90 days, # 90 tablet, 3 Refills, Physician Stop 04/29/23 8:23:00 EST, 05/04/22 8:23:00 EST, [facility] #[id number], LABS NEEDED FOR FURTHER REFILLS, 157.4, cm, [...] EDT, Route to Pharmacy Electronically, [id number], 157.4, cm, 02/05/22 10:42:00 EDT, Height, 77.6, [...] Care Team Personnel Name: Angie Pope Position: [facility] Onco RN Member Role: Primary Care Nurse Name: Julissa Patel RN Position: [facility] RN Member Role: Primary Care Nurse Name: Boubacar Dumont RN Position: [facility] RN Member Role: Primary Care Nurse Name: Annette Castillo NP Position: [facility] PCO Associate Professional Member Role: PCP Address: Address: [address] [place] [id number]- Name: Grady Ortiz Position: [facility] Outreach Member Role: Lifetime Consulting Physician Address: Address: [address] [place] [id number]- Care Team Related Persons Name: ANUEL PARKER Address: [address] [place] [address] Name: ANUEL GU Address: [address] [place], [place] Name: KELLEE PEÑA Address: [address] [place] [address]
--- OUTSIDE RECORDS SUMMARY | 2024-02-06 12:40 | XMS_ITS | Continuity of Care Document ---
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 Name Role Phone Annette Castillo NP Primary Care Physician [facility] Date[facility]s): 02/13/21 - 03/15/21 [facility] [address] [place] [id number]- [place] Allergies, Adverse Reactions, Alerts Substance Reaction Severity Status morphine 1 Persistent Moderate Active penicillins Active 1nausea vomiting Immunizations Given and Recorded Vaccine Date Status Refusal Reason influenza virus vaccine, inactivated 12/16/20 Mango rded influenza virus vaccine, inactivated 01/07/20 Mango rded influenza virus vaccine, inactivated 01/21/18 Mango rded influenza virus vaccine, inactivated 1 12/28/17 Re corded influenza virus vaccine, inactivated 01/09/17 Mango rded influenza virus vaccine, inactivated 2 01/08/17 Re corded influenza virus vaccine, inactivated 3 02/12/16 Gi shakira influenza virus vaccine, inactivated 02/02/16 Mango rded influenza virus vaccine, inactivated 06/24/15 Give n influenza virus vaccine, inactivated 02/02/15 Mango rded influenza virus vaccine, inactivated 4 01/28/13 Gi shakira influenza virus vaccine, inactivated 04/29/12 Mango rded influenza virus vaccine, inactivated 01/28/12 Mango rded influenza virus vaccine, inactivated 5 01/24/12 Gi shakira SARS-CoV-2 (COVID-19) mRNA BNT-162b2 vac 6 08/20/20 Recorded SARS-CoV-2 (COVID-19) mRNA BNT-162b2 vac [...] 04/29/11 Recorded tetanus/diphtheria/pertussis, acel(Tdap) 11 09/29/07 Given 1Location History: pharmacy 2Location History: [facility] 3[facility] 4Admin Note: immun records 5Admin Note: immun records [facility] 7Admin Note: immun records 8Admin Note: immun records 9Admin Note: immun records 10Admin Note: immun records 11Admin Note: immun records Medications Aspirin Low Dose 81 mg oral delayed release tablet 1 tablet, By Mouth, Daily, # 30 tablet, 3 Refills, [facility] STORE 79717, 157.5, cm, 11/09/20 8:24:00 EDT, Height, 76.3, kg, 03/12/20 13:32:00 EST, Dry Weight Start Date: 02/23/21 Status: Ordered baclofen 10 mg oral tablet 1, tablet, By Mouth, Daily at bedtime, # 30 tablet, Refills 2, Route to Pharmacy Electronically, [facility] STORE [id number], 157.5, cm, 11/09/20 8:24:00 EDT, Height, 76.3, kg, 03/12/20 13:32:00 EST, Dry Weight Start Date: 01/25/21 Status: Ordered calcium (as carbonate)-vitamin D 500 mg-400 intl units oral tablet 1 tablet, By Mouth, 2 times a day, # 180 tablet, 3 Refills, Maintenance, 11/09/20 8:38:00 EDT, Tablet, [facility] #[id number], 1 tablet By Mouth 2 times a day,x90 days, 157.5, cm, 11/09/20 8:24:00 EDT, Height, 76.3, kg, 03/12/20 13:32:00 EST, Dry Weight Start Date: 11/09/20 Stop Date: 11/04/21 Status: Ordered CeleBREX 200 mg oral capsule 1 capsule = 200 mg, By Mouth, 2 times a day, Until mail order is delivered, # 28 capsule, 0 Refills, Maintenance, 10/19/19 12:34:00 EDT, Capsule, [facility]/pharmacy #[id number], 158, cm, 09/30/19 10:10:00 EDT, [...] 0 Refills, Maintenance, 11/12/19 16:33:00 EDT, Capsule, [facility]/pharmacy #0993, 158, cm, 11/12/19 15:02:00 EDT, [...] IN THEMID-AFTERNOON, # 180 tablet, 0 Refills, [facility] STORE 71688, 157.5, cm, 11/09/20 8:24:00 EDT, Height, 76.3, kg, 03/12/20 13:32:00 EST, Dry Weight Start Date: 12/30/20 Status: Ordered ipratropium nasal 21 mcg/inh spray See Instructions, SPRAY 2 SPRAYS INTO BOTH NOSTRILS 2 TIMES A DAY FOR 90 DAYS, # 3 each, 0 Refills,Physician Stop 02/07/22 10:33:00 EDT, 02/07/21 10:32:00 EDT, [facility]/pharmacy #[id number], SPRAY 2 SPRAYS INTO BOTH NOSTRILS 2 TIMES A DAY FOR 90 DAYS, 157.5, cm... Start Date: 02/07/21 Stop Date: 02/07/22 Status: Ordered lactulose 10 gm/15 ml oral syrup 15 mL = 10 Gm, By Mouth, Daily, for 60 days, Take an additional 30mL daily as needed for constipation, # 900 mL, 0 Refills, Acute 05/12/21 9:23:00 EST, 03/13/21 9:23:00 EST, Syrup, [facility]/pharmacy #[id number], Partial fill upon patient request if the prescript... Start Date: 03/13/21 Stop Date: 05/12/21 Status: Ordered levothyroxine 0.088 mg oral tablet 1 tablet, By Mouth, Daily, # 30 tablet, 5 Refills, Maintenance, 12/01/20 11:20:00 EDT, [facility], 157.5, cm, 11/09/20 8:24:00 EDT, Height, 76.3, kg, 03/12/20 13:32:00 EST, Dry Weight Start Date: 12/01/20 Status: Ordered Multivitamin With Minerals By Mouth, 0 Refills, Maintenance Start Date: 04/02/11 Status: Ordered pramipexole 1 mg oral tablet 1.5 tablet, By Mouth, 3 times a day, # 135 tablet, 5 Refills, [facility], 157.5, cm, 11/09/20 8:24:00 EDT, Height, 76.3, kg, 03/12/20 13:32:00 EST, Dry Weight Start Date: 02/23/21 Status: Ordered Protonix 40 mg oral delayed release tablet 1 tablet = 40 mg, By Mouth, Daily, # 30 tablet, 1 Refills, Maintenance, 03/13/20 9:49:00 EST, EC Tablet, 164, cm, 03/13/20 6:58:00 EST, Height, 76.3, kg, 03/12/20 13:32:00 EST, Dry Weight Start Date: 03/13/20 Status: Ordered traZODone 100 mg oral tablet 1, tablet, By Mouth, Daily at bedtime, # 30 tablet, Refills 5, Route to Pharmacy Electronically, [facility] STORE 95250, 157.5, cm, 11/09/20 8:24:00 EDT, Height, 76.3, kg, 03/12/20 13:32:00 EST, Dry Weight Start Date: 01/25/21 Status: Ordered Zofran 4 mg oral tablet 1 tablet = 4 mg, By Mouth, Every 8 hours, PRN Nausea & Vomiting, # 10 tablet, 0 Refills, Maintenance, 03/13/20 9:49:00 EST, Tablet, [facility], Partial fill upon patient [...] Active Internal hemorrhoids(Confirmed) Active Lumbar spondylosis(Confirmed) Active Obese class I(Confirmed) Active mild osteophytes(Confirmed) Active Osteopenia(Confirmed) 2, 3 Active Pain in limb(Confirmed) Active Left shoulder pain(Confirmed) Active 1severe in sigmoid, mild in descending colon by abdominal CT 2Dexa 2014 osteopenia 3last dexa 2013 Social History Social History Type Response Smoking Status Never (less than 100 in lifetime) entered on: 11/09/20 Sex
--- OUTSIDE RECORDS SUMMARY | 2024-02-06 12:40 | XMS_ITS | Continuity of Care Document ---
Author Organization [facility] Address [address] [place] [phone]- Care Team Providers Care Finishing Inspector Name Role Phone Swapnil SANTAMARIA, Annette Primary Care Physician [place] [facility]12[place] - 11/19/19 [facility] [address] [place] [address]- [facility] Attending Physician: Lewis Goodrich MD Admitting Physician: Lewis Goodrich MD Referring Physician: Cecilia SANTAMARIA, Leonarda Allergies, Adverse Reactions, Alerts Substance Reaction Severity [...] immun records 10Admin Note: immun records Medications baclofen 10 mg oral tablet See Instructions, TAKE 1 TABLET BY MOUTH EVERYDAY AT BEDTIME, # 90 tablet, Refills 0, Maintenance, Instructions Replace Required Details, Route to Pharmacy Electronically, [facility] STORE 09748, 158, cm, 07/30/19 12:49:00 EDT, Height, 77.2, kg, 05/20/19 20:... Start Date: 08/19/19 Status: Ordered calcium (as carbonate)-vitamin D 500 mg-400 intl units oral tablet 1 tablet, By Mouth, 2 times a day, # 180 tablet, 1 Refills, Maintenance, 10/27/19 9:07:00 EDT, Tablet, [facility] #[id number], 1 tablet By Mouth 2 times a day, 158, cm, 09/30/19 10:10:00 EDT, Height, 77.2, kg, 05/20/19 20:41:00 EST, Dry Weight Start Date: 10/27/19 Status: Ordered CeleBREX 200 mg oral capsule 1 capsule = 200 mg, By Mouth, 2 times a day, Take with food to avoid upset stomach, # 180 capsule, 0 Refills, Maintenance, 10/19/19 12:33:00 EDT, Capsule, [facility] #[id number], 158, cm, 09/30/19 10:10:00 EDT, Height, 77.2, kg, 05/20/19 20:41:00 EST,... Start Date: 10/19/19 Stop Date: 01/17/20 Status: Ordered CeleBREX 200 mg oral capsule 1 capsule = 200 mg, By Mouth, 2 times a day, Until mail order is delivered, # 28 capsule, 0 Refills, Maintenance, 10/19/19 12:34:00 EDT, Capsule, [facility]/pharmacy #[id number], 158, cm, 09/30/19 10:10:00 EDT, [...] Capsule Start Date: 01/29/17 Status: Ordered gabapentin 600 mg oral tablet See Instructions, TAKE 1 TABLET IN THE MORNING AND 1 TABLET AT BEDTIME. TAKE A 300MG CAPSULE IN THEMID-AFTERNOON, # 180 tablet, 1 Refills, Maintenance, [facility] STORE 12801, 158, cm, 07/30/19 12:49:00 EDT, Height, 77.2, kg, 05/20/19 20:41:00 EST, Dry Weight Start Date: 08/12/19 Status: Ordered lactulose 10 gm/15 ml oral syrup 15 mL = 10 Gm, By Mouth, 2 times a day, PRN as needed for constipation, # 480 mL, 1 Refills, Maintenance, 07/27/19 12:04:00 EDT, Syrup, [id number], 15 mL By Mouth 2 times a day,PRN:as needed for constipation, 157, cm, 07/23/19 9:32:00 EDT, Hei... Start Date: 07/27/19 Status: Ordered levothyroxine 0.088 mg oral tablet 1 tablet = 88 mcg, By Mouth, Daily, # 90 tablet, 1 Refills, Soft Stop, 09/28/19 11:17:00 EDT, [facility]/pharmacy #[id number], 158, cm, 09/08/19 10:27:00 EDT, Height, 77.2, kg, 05/20/19 20:41:00 EST, Dry Weight Start Date: 09/28/19 Stop Date: 03/26/20 Status: Ordered Mirapex 1 mg oral tablet 1.5 tablet = 1.5 mg, By Mouth, 3 times a day, # 135 tablet, 5 Refills, Maintenance, 05/08/19 15:54:00 EST, [facility]/pharmacy #[id number], 157, cm, 05/07/19 16:41:00 EST, Height, 76.8, kg, 03/06/19 13:57:00 EST,Dry Weight Start Date: 05/08/19 Stop Date: 11/04/19 Status: Ordered Multivitamin With Minerals By Mouth, 0 Refills, Maintenance Start Date: 04/02/11 Status: Ordered traZODone 100 mg oral tablet 100 mg, 1, tablet, By Mouth, Daily at bedtime, # 90 tablet, Refills 1, Tot. Refills 1, Soft Stop, 08/12/19 8:23:00 EDT, Route to Pharmacy Electronically, [facility]/pharmacy #[id number], 158, cm, 07/30/19 12:49:00 EDT, Height, 77.2, kg, 05/20/19 20:41:00 EST, Dry... Start Date: 08/12/19 Stop Date: 11/10/19 Status: Ordered Problem List Condition Effective Dates Status Health Status Inform ant Adjustment disorder with dep ressed mood(Confirmed) Active Central sleep apnea(Confirmed) Active Cough(Confirmed) Active Diverticulosis of colon(Confirmed) 1 Active Hypothyroidism(Confirmed) Active Insomnia(Confirmed) Active Lumbar spondylosis(Confirmed) Active mild osteophytes(Confirmed) Active Osteopenia(Confirmed) 2, 3 Active Pain in limb(Confirmed) Active 1severe in sigmoid, mild in descending colon by abdominal CT 2Dexa 2014 osteopenia 3last dexa 2012 Vital Signs Most recent to oldest [Reference Range]: 1 Height 158 cm (09/30/19 10:10 AM) Weight 75 kg (09/30/19 10:10 AM) Body Mass Index [18.5-24.99] 30.04 *>HHI* (09/30/19 10:10 AM) Weight Obtained Via Patient/family state d (09/30/19 10:10 AM) Social History Social History Type Response Smoking Status Former smoker; Type: Cigarettes; Tobacco use times per day: quit smoking 30 yrs ago; entered on: 06/25/15 Sex
--- OUTSIDE RECORDS SUMMARY | 2024-02-06 12:40 | XMS_ITS | Continuity of Care Document ---
Author Organization [facility] Address [address] [place] [address]- Care Team Providers Care Director Of Epidemiology Name Role Phone Swapnil TERRITORY SALES CONSULTANT, Annette Primary Care Physician [phone] [facility]counter [facility] Date[facility]): 03/10[facility]19 - 11/27/19 [facility] [address] [place] [address]- [facility] Attending Physician: Shashi Coronel MD Admitting Physician: Shashi Coronel MD Referring Physician: Cecilia TERRITORY SALES CONSULTANT, Leonarda Allergies, Adverse Reactions, Alerts Substance Reaction [...] Replace Required Details, Route to Pharmacy Electronically, [facility] STORE 01371, 158, cm, 07/30/19 12:49:00 EDT, Height, 77.2, kg, 05/20/19 20:... Start Date: 08/19/19 Status: Ordered calcium (as carbonate)-vitamin D 500 mg-400 intl units oral tablet 1 tablet, By Mouth, 2 times a day, # 180 tablet, 1 Refills, Maintenance, 10/27/19 9:07:00 EDT, Tablet, [facility] #[id number], 1 tablet By Mouth 2 times a day, 158, cm, 09/30/19 10:10:00 EDT, Height, 77.2, kg, 05/20/19 20:41:00 EST, Dry Weight Start Date: 10/27/19 Status: Ordered CeleBREX 200 mg oral capsule 1 capsule = 200 mg, By Mouth, 2 times a day, Take with food to avoid upset stomach, # 180 capsule, 0 Refills, Maintenance, 10/19/19 12:33:00 EDT, Capsule, [facility] #[id number], 158, cm, 09/30/19 10:10:00 EDT, Height, 77.2, kg, 05/20/19 20:41:00 EST,... Start Date: 10/19/19 Stop Date: 01/17/20 Status: Ordered CeleBREX 200 mg oral capsule 1 capsule = 200 mg, By Mouth, 2 times a day, Until mail order is delivered, # 28 capsule, 0 Refills, Maintenance, 10/19/19 12:34:00 EDT, Capsule, [facility]/pharmacy #[id number], 158, cm, 09/30/19 10:10:00 [...] THEM[facility]TER[facility], # 180 tablet, 1 Refills, Maintenance, [facility], 158, cm, 07/30/19 12:49:00 EDT, Height, 77.2, [...] 1 Refills, Soft Stop, 09/28/19 11:17:00 EDT, [facility]/pharmacy #[id number], 158, cm, 09/08/19 10:27:00 EDT, Height, 77.2, kg, 05/20/19 20:41:00 EST, Dry Weight Start Date: 09/28/19 Stop Date: 03/26/20 Status: Ordered Mirapex 1 mg oral tablet 1.5 tablet = 1.5 mg, By Mouth, 3 times a day, # 135 tablet, 5 Refills, Maintenance, 05/08/19 15:54:00 EST, [id number], 157, cm, 05/07/19 16:41:00 EST, Height, [...] 08/12/19 8:23:00 EDT, Route to Pharmacy Electronically, [facility]/pharmacy #[id number], 158, cm, 07/30/19 12:49:00 EDT, [...]
--- OUTSIDE RECORDS SUMMARY | 2024-02-06 12:40 | XMS_ITS | Continuity of Care Document ---
Author Organization [facility] Address [address] [place] [address]- Care Team Providers Care Education Director Name Role Phone Annette Castillo NP Primary Care Physician [facility]): 04/17/22 - 05/17/22 [facility] [address] [place] [address]- Allergies, Adverse Reactions, Alerts Substance Reaction Severity [...] tetanus/diphtheria/pertussis, acel(Tdap) 12 09/29/07 Given 1Result Comment: [facility] [id number] 2Location History: pharmacy 3Location History: [facility] 4Admin Note: high dose done at [facility] 5Admin Note: immun records 6Admin Note: immun records 7Result Comment: [facility] 8Admin Note: immun records 9Admin Note: immun records 10Admin Note: immun records 11Admin Note: immun records 12Admin Note: immun records Medications Aspirin Low Dose 81 mg oral delayed release tablet 1 tablet, By Mouth, Daily, # 30 tablet, 2 Refills, Maintenance, 03/28/22 14:30:00 EST, [facility] STORE 41056, 157.4, cm, 02/05/22 10:42:00 EDT, Height, 77.6, kg, 06/29/21 7:08:00 EST, Dry Weight Start Date: 03/28/22 Status: Ordered baclofen 10 mg oral tablet 1, tablet, By Mouth, Daily at bedtime, # 30 tablet, Refills 2, Maintenance, 04/27/22 7:15:00 EST, Route to Pharmacy Electronically, [facility] STORE 24593, 157.4, cm, 02/05/22 10:42:00 EDT, Height, 77.6, kg, 06/29/21 7:08:00 EST, Dry Weight Start Date: 04/27/22 Status: Ordered calcium (as carbonate)-vitamin D 500 mg-400 intl units oral tablet 1 tablet, By Mouth, 2 times a day, # 180 tablet, 3 Refills, Maintenance, 11/09/20 8:38:00 EDT, Tablet, [facility] #[id number], 1 tablet By Mouth 2 times a [...] BEDTIME, # 60 tablet, 0 Refills, Maintenance, 04/18/22 8:52:00 EST, [id number], 157.4, cm, 02/05/22 10:42:00 EDT, Height, 77.6, kg, 06/29/21 7:08:00 EST, Dry... Start Date: 04/18/22 Status: Ordered levothyroxine 0.088 mg oral tablet 1 tablet, By Mouth, Daily, for 90 days, # 90 tablet, 3 Refills, Physician Stop 04/29/23 8:23:00 EST, 05/04/22 8:23:00 EST, [id number], LABS NEEDED FOR FURTHER REFILLS, 157.4, cm, 02/05/22 10:42:00 EDT, Height, 77.6, kg, 06/29/21 7:08:00 EST... Start Date: 05/04/22 Stop Date: 04/29/23 Status: Ordered Multivitamin With Minerals By Mouth, 0 Refills, Maintenance Start Date: 04/02/11 Status: Ordered OYSTER SHELL CALCIUM-VIT D TAB OYSTER SHELL CALCIUM-VIT D TAB, 1, tablet, By Mouth, 2 times a day, # 60 tablet, 5 Refills, 157.4, cm, 08/10/21 9:43:00 EDT, Height, 77.6, kg, 06/29/21 7:08:00 EST, Dry Weight Start Date: 11/17/21 Status: Ordered OYSTER SHELL CALCIUM-VIT D TAB OYSTER SHELL CALCIUM-VIT D TAB, 1, tablet, By Mouth, 2 times a day, # 60 tablet, 5 Refills, Maintenance, 04/27/22 7:15:00 EST, 157.4, cm, 02/05/22 10:42:00 EDT, Height, 77.6, kg, 06/29/21 7:08:00 EST, Dry Weight Start Date: 04/27/22 Status: Ordered pramipexole 1 mg oral tablet 1.5 tablet, By Mouth, 3 times a day, # 135 tablet, 5 Refills, Maintenance, 02/26/22 15:10:00 EDT, [facility], 157.4, cm, 02/05/22 10:42:00 EDT, Height, 77.6, kg, 06/29/21 7:08:00 EST, Dry Weight Start Date: 02/26/22 Status: Ordered Protonix 40 mg oral delayed release tablet 1 tablet = 40 mg, By Mouth, Daily, # 30 tablet, 1 Refills, Maintenance, 03/13/20 9:49:00 EST, EC Tablet, 164, cm, 03/13/20 6:58:00 EST, Height, 76.3, kg, 03/12/20 13:32:00 EST, Dry Weight Start Date: 03/13/20 Status: Ordered traZODone 100 mg oral tablet See Instructions, TAKE 1 TABLET BY MOUTH EVERYDAY AT BEDTIME, # 30 tablet, Refills 1, Maintenance, 03/28/22 12:24:00 EST, Instructions Replace Required Details, Route to Pharmacy Electronically, [facility] STORE 08369, 157.4, cm, 02/05/22 10:42:00 EDT, Heigh... Start Date: 03/28/22 Status: Ordered Problem List Condition Confirmation Course [...] Care Team Personnel Name: Angie Pope Position: [facility] Onco RN Member Role: Primary Care Nurse Name: Olga Brooke RN Position: [facility] RN Member Role: Primary Care Nurse Name: Annette Castillo NP Position: [facility] PCO Associate Professional Member Role: PCP Address: Address: [address] [place] [id number] Name: Grady Ortiz Position: [facility] Outreach Member Role: Lifetime Consulting Physician Address: Address: [address] [place] [id number] Care Team Related Persons Name: ANUEL PARKER Address: home [address] [place] [address] Name: KELLEE PEÑA Address: home [address] [place] [address]
--- OUTSIDE RECORDS SUMMARY | 2024-02-06 12:41 | XMS_ITS | Continuity of Care Document ---
Author Organization [facility] Adult Address [address] [place] [address]- Care Team Providers Care Instructor Adjunct Surgical Technician Name Role Phone Cecilia SANTAMARIA, Leonarda Primary Care Physician [place] [facility] [place] [facility] [address] [place] [id number]- [facility] Attending Physician: Miles Olea Admitting Physician: Miles Olea Referring Physician: Miles Olea Allergies, Adverse Reactions, Alerts Substance Reaction Severity [...] tablet 81 mg, By Mouth, Daily, # 60 tablet, Refills 3, Tot. Refills 3, Maintenance, 03/04/19 15:42:41 EST,Route to Pharmacy Electronically, [id number], [facility]/pharmacy #[id number] Start Date: 03/04/19 Stop Date: 10/30/19 Status: Ordered baclofen 10 mg oral tablet See Instructions, TAKE 1 TABLET BY MOUTH EVERYDAY AT BEDTIME, # 90 tablet, Refills 0, Maintenance, Instructions Replace Required Details, Route to Pharmacy Electronically, [facility] STORE 21002, 158, cm, 07/30/19 12:49:00 EDT, Height, 77.2, kg, 05/20/19 20:... Start Date: 08/19/19 Status: Ordered calcium (as carbonate)-vitamin D 500 mg-400 intl units oral tablet 1 tablet, By Mouth, 2 times a day, # 60 tablet, 5 Refills, Maintenance, 05/26/19 13:08:00 EST, Tablet, [facility]/pharmacy #[id number], 1 tablet By Mouth 2 times a day, 157, cm, 05/07/19 16:41:00 EST, Height, 77.2, kg, 05/20/19 20:41:00 EST, Dry Weight Start Date: 05/26/19 Status: Ordered CeleBREX 200 mg oral capsule 1 capsule = 200 mg, By Mouth, 2 times a day, Take with food to avoid upset stomach Start after stopping prednisone, # 180 capsule, 0 Refills, Maintenance, 10/08/19 14:27:00 EDT, Capsule, [facility], 158, cm, 09/30/19 10:10:00 E... Start Date: 10/08/19 Stop Date: 01/06/20 Status: Ordered Compression Stockings See Instructions, # 2 each, Refills 1, Tot. Refills 1, Maintenance, surgical, knee length 20-30 mm Hg, 05/07/19 17:02:00 EST, Compound Start Date: 05/07/19 Status: Ordered CPAP EQUIPMENT CPAP EQUIPMENT, See [...] THEMID-AFTERNOON, # 180 tablet, 1 Refills, Maintenance, [facility] STORE 38781, 158, cm, 07/30/19 12:49:00 EDT, Height, 77.2, [...] tablet, 5 Refills, Maintenance, 05/08/19 15:54:00 EST, [facility]/pharmacy #[id number], 157, cm, 05/07/19 16:41:00 EST, [...] 08/12/19 8:23:00 EDT, Route to Pharmacy Electronically, [facility]/pharmacy #[id number], 158, cm, 07/30/19 12:49:00 [...]
--- OUTSIDE RECORDS SUMMARY | 2024-02-06 12:41 | XMS_ITS | Continuity of Care Document ---
Author Organization [facility] Adult Address [address] [place] [address]- Care Team Providers Care Material Distributor Name Role Phone Annette Castillo NP Primary Care Physician [facility]): 09/[facility]/20 - 10/09/20 [facility] Adult [address] [place] [address]- Allergies, Adverse Reactions, Alerts Substance Reaction Severity Status morphine 1 Persistent Moderate Active penicillins Active 1nausea vomiting Immunizations Given and Recorded Vaccine Date Status Refusal Reason SARS-CoV-2 (COVID-19) mRNA BNT-162b2 vac 1 08/20/20 Recorded Influenza Virus Vaccine (oldterm) 01/02/20 Recorde d Influenza Virus Vaccine (oldterm) 12/12/18 Recorde d influenza virus vaccine, inactivated 2 12/28/17 Re corded influenza virus vaccine, inactivated 3 01/08/17 Re corded influenza virus vaccine, inactivated 4 02/12/16 Gi shakira influenza virus vaccine, inactivated 06/24/15 Give n influenza virus vaccine, inactivated 5 01/28/13 Gi shakira influenza virus vaccine, inactivated 6 01/24/12 Gi shakira pneumococcal 13-valent vaccine 07/22/15 Given pneumococcal 23-valent vaccine 7 01/29/14 Given influenza virus vaccine, live 8 01/28/14 Given Zostavax (oldterm) 9 06/16/13 Given tetanus/diphtheria/pertussis, acel(Tdap) 10 10/22/11 Given tetanus/diphtheria/pertussis, acel(Tdap) 11 09/29/07 Given [facility] 2[facility] 4Admin Note: [facility] 5Admin Note: immun records 6Admin Note: immun records 7Admin Note: immun records 8Admin Note: immun records 9Admin Note: immun records 10Admin Note: immun records 11Admin Note: immun records Medications aspirin 81 mg oral delayed release tablet = 81 mg, By Mouth, Daily, # 30 tablet, 3 Refills, Maintenance, 04/08/20 8:32:00 EST, [facility], 164, cm, 03/17/20 16:43:00 EST, Height, 76.3, kg, 03/12/20 13:32:00 EST, Dry Weight Start Date: 04/08/20 Status: Ordered baclofen 10 mg oral tablet 10 mg, 1, tablet, By Mouth, Daily at bedtime, TAKE 1 TABLET BY MOUTH EVERYDAY AT BEDTIME, # 90 tablet, Refills 0, Tot. Refills 0, Maintenance, 08/05/20 12:52:00 EDT, Route to Pharmacy Electronically,[id number], Partial fill upon patient re... Start Date: 08/05/20 Status: Ordered calcium (as carbonate)-vitamin D 500 mg-400 intl units oral tablet 1 tablet, By Mouth, 2 times a day, # 180 tablet, 1 Refills, Maintenance, 05/05/20 16:26:00 EST, Tablet, [facility] #[id number], 1 tablet By Mouth 2 times a day, 164, cm, 03/17/20 16:43:00 EST, Height,76.3, kg, 03/12/20 13:32:00 EST, Dry Weight Start Date: 05/05/20 Status: Ordered CeleBREX 200 mg oral capsule 1 capsule = 200 mg, By Mouth, 2 times a day, Until mail order is delivered, # 28 capsule, 0 Refills, Maintenance, 10/19/19 12:34:00 EDT, Capsule, [facility]/pharmacy #0993, 158, cm, 09/30/19 10:10:00 [...] 0 Refills, Maintenance, 11/12/19 16:33:00 EDT, Capsule, [facility]/pharmacy #[id number], 158, cm, 11/12/19 15:02:00 EDT, [...] tablet, 0 Refills, Maintenance, 09/27/20 14:38:00 EDT, [facility]/pharmacy #0993, 157, cm, 09/07/20 14:26:00 EDT, Height, 76.3, kg, 03/12... Start Date: 09/27/20 Status: Ordered levothyroxine 0.088 mg oral tablet 1 tablet, By Mouth, Daily, # 30 tablet, 2 Refills, Maintenance, 09/09/20 8:28:00 EDT, [facility] #[id number], Rx resent from 09/05, 157, cm, 09/07/20 14:26:00 EDT, Height, 76.3, kg, 03/12/20 13:32:00 EST, Dry Weight Start Date: 09/09/20 Status: Ordered Mirapex 1 mg oral tablet 1.5 tablet = 1.5 mg, By Mouth, 3 times a day, # 135 tablet, 5 Refills, Maintenance, 09/09/20 8:27:00 EDT, [facility] #[id number], 157, cm, 09/07/20 14:26:00 EDT, Height, 76.3, [...] EDT, Route to Pharmacy Electronically, [facility] #[id number], 157, cm, 06/30/20 10:07:00 EST, Height, 76.3, kg, 03/12/20 13:32:00 EST, Dry We... Start Date: 08/05/20 Status: Ordered Zofran 4 mg oral tablet 1 tablet = 4 mg, By Mouth, Every 8 hours, PRN Nausea & Vomiting, # 10 tablet, 0 Refills, Maintenance, 03/13/20 9:49:00 EST, Tablet, [facility], Partial fill upon patient request, [...]
--- OUTSIDE RECORDS SUMMARY | 2024-02-06 12:41 | XMS_ITS | Continuity of Care Document ---
Author Organization [facility] Adult Address [address] [place] [address]- Care Team Providers Care Compounding Technician Name Role Phone Annette Castillo NP Primary Care Physician [facility] Date[facility]s): 04/04/23 - 05/04/23 [facility] Adult [address] [place] [address]- Attending Physician: Miles Olea Admitting Physician: AdmtrMiles Referring Physician: AdmtrMiles Allergies, Adverse Reactions, Alerts Substance Reaction Severity Status morphine 1 Persistent Moderate Active penicillins Active 1nausea vomiting Immunizations Given and Recorded Vaccine Date Status Refusal Reason SARS-CoV-2(COVID-19)mRNA-LNP vac([id number]) 04/17/23 Recorded influenza virus vaccine, inactivated 12/27/22 Mango rded [...] virus vaccine, inactivated 6 01/24/12 Gi shakira [id number] 12y+ bivalent booster vax 03/02/22 Recorded SARS-CoV-2 [...] tetanus/diphtheria/pertussis, acel(Tdap) 12 09/29/07 Given 1Result Comment: [facility] [id number] 2Location History: pharmacy 3Location History: [facility] 4Admin Note: high dose done at [facility] 5Admin Note: immun records 6Admin Note: immun records 7Result Comment: [facility] 8Admin Note: immun records 9Admin Note: immun records 10Admin Note: immun records 11Admin Note: immun records 12Admin Note: immun records Medications Aspirin Low Dose 81 mg oral delayed release tablet 1 tablet, By Mouth, Daily, # 90 tablet, 1 Refills, Maintenance, 04/26/23 6:56:00 EST, [facility] STORE 90983, 156.5, cm, 02/18/23 10:06:00 EDT, Height, 77, kg, 02/04/23 0:27:00 EDT, Dry Weight Start Date: 04/26/23 Status: Ordered baclofen 10 mg oral tablet 1, tablet, By Mouth, Daily at bedtime, # 90 tablet, Refills 1, Tot. Refills 1, Maintenance, 02/18/23 10:44:00 EDT, Route to Pharmacy Electronically, [facility]/pharmacy #1972, 156.5, cm, 02/18/23 10:06:00 EDT, Height, [...] 3 Refills, Maintenance, 10/16/22 17:51:00 EDT, Tablet, [facility]/pharmacy #1972, 1 tablet By Mouth 2 times a day,x90 days, 158, cm, 10/10/22 9:38:00 EDT, Height, 80.8, kg, 10/04/22 20:27:00 EDT, Dry Weight Start Date: 10/16/22 Stop Date: 10/11/23 Status: Ordered gabapentin 600 mg oral tablet See Instructions, TAKE 1 TABLET BY MOUTH EVERY MORNING AND 1 TABLET EVERY NIGHT AT BEDTIME, # 60 tablet, 0 Refills, Maintenance, 04/15/23 10:12:00 EST, [facility], 156.5, cm, 02/18/23 10:06:00 EDT, Height, 77, kg, 02/04/23 0:27:00 EDT, Dry Weight Start Date: 04/15/23 Status: Ordered levothyroxine 0.088 mg oral tablet See Instructions, TAKE 1 TABLET BY MOUTH EVERY DAY, # 90 tablet, 1 Refills, Maintenance, 01/04/23 7:17:00 EDT, [facility], 158, cm, 10/10/22 9:38:00 EDT, Height, 80.8, kg, 10/04/22 20:27:00 EDT,Dry Weight Start Date: 01/04/23 Status: Ordered meloxicam 15 mg oral tablet 1 tablet = 15 mg, By Mouth, Daily, # 30 tablet, 0 Refills, Maintenance, 02/06/23 15:50:00 EDT, Tablet, [facility]/pharmacy #1972, Partial fill upon patient request if [...] 03/14/23 15:20:00 EST, Route to Pharmacy Electronically, [facility]/pharmacy #1972, 156.5, cm, 02/18/23 10:06:00 EDT, Height, [...] 100 in lifetime) entered on: 11/09/20 Sex Laboratory * Event Display: Laboratory Result Scanned Authored Date: Radiology * Event Display: Ultrasound Abdomen, Non-BH Authored Date: Patient Care team information Care Team Personnel Name: Angie Pope Position: [facility] Onco RN Member Role: Primary Care Nurse Name: Julissa Patel RN Position: [facility] RN Member Role: Primary Care Nurse Name: Olga Brooke RN Position: [facility] RN Member Role: Primary Care Nurse Name: Annette Castillo NP Position: [facility] PCO Associate Professional Member Role: PCP Address: Address: [address] [place] [address]- Name: Grady Ortiz Position: [facility] Outreach Member Role: Lifetime Consulting Physician Address: Address: [address] [place] [address], [facility] [address], [place] [address] Care Team Related Persons Name: KELLEE BARRAGAN Name: ANUEL PARKER Address: home [address] [place] [address] Name: ANUEL GU Address: [address] [place] [address] Name: KELLEE PEÑA Address: home [address] [place] [address]
--- OUTSIDE RECORDS SUMMARY | 2024-02-06 12:41 | XMS_ITS | Continuity of Care Document ---
Author Organization [facility] Adult Address [address] [place] [address]- Care Team Providers Care Goods Layer Name Role Phone Annette Castillo NP Primary Care Physician [place] [facility] [place] 10/05/20 [facility] [address] [place] [address]- Attending Physician: Miles Olea Admitting Physician: AdmtrMiles Referring Physician: Admtr, ArDominick Allergies, Adverse Reactions, Alerts Substance Reaction Severity [...] [facility] 4Admin Note: [facility] done at [facility] 5Admin Note: immun records 6Admin Note: immun records 7Admin Note: immun records 8Admin Note: immun records 9Admin Note: immun records 10Admin Note: immun records 11Admin Note: immun records Medications aspirin 81 mg oral delayed release tablet = 81 mg, By Mouth, Daily, # 30 tablet, 3 Refills, Maintenance, 04/08/20 8:32:00 EST, [facility], 164, cm, 03/17/20 16:43:00 EST, Height, 76.3, kg, 03/12/20 13:32:00 EST, Dry Weight Start Date: 04/08/20 Status: Ordered baclofen 10 mg oral tablet 10 mg, 1, tablet, By Mouth, Daily at bedtime, TAKE 1 TABLET BY MOUTH EVERYDAY AT BEDTIME, # 90 tablet, Refills 0, Tot. Refills 0, Maintenance, 08/05/20 12:52:00 EDT, Route to Pharmacy Electronically,[facility] #[id number], Partial fill upon patient re... Start Date: 08/05/20 Status: Ordered calcium (as carbonate)-vitamin D 500 mg-400 intl units oral tablet 1 tablet, By Mouth, 2 times a day, # 180 tablet, 1 Refills, Maintenance, 05/05/20 16:26:00 EST, Tablet, [id number], 1 tablet By Mouth 2 times a day, 164, cm, 03/17/20 16:43:00 EST, Height,76.3, kg, 03/12/20 13:32:00 EST, Dry Weight Start Date: 05/05/20 Status: Ordered CeleBREX 200 mg oral capsule 1 capsule = 200 mg, By Mouth, 2 times a day, Until mail order is delivered, # 28 capsule, 0 Refills, Maintenance, 10/19/19 12:34:00 EDT, Capsule, [facility]/pharmacy #0993, 158, cm, 09/30/19 10:10:00 EDT, Height, [...] 0 Refills, Maintenance, 11/12/19 16:33:00 EDT, Capsule, [facility]/pharmacy #0993, 158, cm, 11/12/19 15:02:00 EDT, [...] tablet, 0 Refills, Maintenance, 09/27/20 14:38:00 EDT, [facility]/pharmacy #0993, 157, cm, 09/07/20 14:26:00 EDT, Height, 76.3, kg, 03/12... Start Date: 09/27/20 Status: Ordered levothyroxine 0.088 mg oral tablet 1 tablet, By Mouth, Daily, # 30 tablet, 2 Refills, Maintenance, 09/09/20 8:28:00 EDT, [facility] #[id number], Rx resent from 09/05, 157, cm, 09/07/20 14:26:00 EDT, Height, 76.3, kg, 03/12/20 13:32:00 EST, Dry Weight Start Date: 09/09/20 Status: Ordered Macrobid macrocrystals-monohydrate 100 mg oral capsule 1 capsule = 100 mg, By Mouth, 2 times a day, for 7 days, # 14 capsule, 0 Refills, Acute 10/07/20 15:17:00 EDT, 09/30/20 15:17:00 EDT, Capsule, [facility]/pharmacy #0985, Partial fill upon patient request ifthe prescription is for a schedule II opioid drug.,... Start Date: 09/30/20 Stop Date: 10/07/20 Status: Ordered Mirapex 1 mg oral tablet 1.5 tablet = 1.5 mg, By Mouth, 3 times a day, # 135 tablet, 5 Refills, Maintenance, 09/09/20 8:27:00 EDT, [id number], 157, cm, 09/07/20 14:26:00 EDT, Height, 76.3, [...] 08/05/20 11:01:00 EDT, Route to Pharmacy [facility]ically, [id number], 157, cm, 06/30/20 10:07:00 EST, Height, 76.3, kg, 03/12/20 13:32:00 EST, Dry We... Start Date: 08/05/20 Status: Ordered Zofran 4 mg oral tablet 1 tablet = 4 mg, By Mouth, Every 8 hours, PRN Nausea & Vomiting, # 10 tablet, 0 Refills, Maintenance, 03/13/20 9:49:00 EST, Tablet, [facility], Partial fill upon patient [...]
--- OUTSIDE RECORDS SUMMARY | 2024-02-06 12:41 | XMS_ITS | Continuity of Care Document ---
Author Organization [facility] Adult Address [address] [place] [address]- Care Team Providers Care Inhalation Therapy Aides Teacher Name Role Phone Annette Castillo NP Primary Care Physician [facility]): 06/25/22 - 07/25/22 [facility] Adult [address] [place] [address]- Allergies, Adverse Reactions, Alerts Substance Reaction Severity [...] tetanus/diphtheria/pertussis, acel(Tdap) 12 09/29/07 Given 1Result Comment: [facility] [id number] 2Location History: pharmacy 3Location History: [facility] 4[facility]: [facility] 5Admin Note: immun records 6Admin Note: immun records 7[facility] 8Admin Note: immun records 9Admin Note: immun records 10Admin Note: immun records 11Admin Note: immun records 12Admin Note: immun records Medications Aspirin Low Dose 81 mg oral delayed release tablet 1 tablet, By Mouth, Daily, # 30 tablet, 2 Refills, Maintenance, 06/26/22 8:57:00 EST, [facility] 68[facility], 157.4, cm, 02/05/22 10:42:00 EDT, Height, 77.6, kg, 06/29/21 7:08:00 EST, Dry Weight Start Date: 06/26/22 Status: Ordered baclofen 10 mg oral tablet 1, tablet, By Mouth, Daily at bedtime, # 30 tablet, Refills 2, Maintenance, 04/27/22 7:15:00 EST, Route to Pharmacy Electronically, [facility] 17146, 157.4, cm, 02/05/22 10:42:00 EDT, Height, 77.6, kg, 06/29/21 7:08:00 EST, Dry Weight Start Date: 04/27/22 Status: Ordered calcium (as carbonate)-vitamin D 500 mg-400 intl units oral tablet 1 tablet, By Mouth, 2 times a day, # 180 tablet, 3 Refills, Maintenance, 11/09/20 8:38:00 EDT, Tablet, [facility] #[id number], 1 tablet By Mouth 2 times a [...] BEDTIME, # 60 tablet, 0 Refills, Maintenance, 06/28/22 11:01:00 EST, [facility], 157.4, cm, 02/05/22 10:42:00 EDT, Height, 77.6, kg, 06/29/21 7:08:00 EST, Dry W... Start Date: 06/28/22 Status: Ordered levothyroxine 0.088 mg oral tablet 1 tablet, By Mouth, Daily, for 90 days, # 90 tablet, 3 Refills, Physician Stop 04/29/23 8:23:00 EST, 05/04/22 8:23:00 EST, [id number], LABS NEEDED FOR FURTHER REFILLS, 157.4, cm, [...] Refills, Maintenance, 02/26/22 15:10:00 EDT, [facility], 157.4, cm, 02/05/22 10:42:00 EDT, Height, 77.6, [...] EDT, Route to Pharmacy Electronically, [id number], 157.4, cm, 02/05/22 10:42:00 EDT, Height, 77.6, [...] Care Team Personnel Name: Angie Pope Position: [facility] Onco RN Member Role: Primary Care Nurse Name: Olga Brooke RN Position: [facility] RN Member Role: Primary Care Nurse Name: Annette Castillo NP Position: [facility] PCO Associate Professional Member Role: PCP Address: Address: [address] [place] [address] Name: Grady Ortiz Position: [facility] Outreach Member Role: Lifetime Consulting Physician Address: Address: [address] [place] [address], [facility] [address] [place] [address]- Care Team Related Persons Name: ANUEL PARKER Address: home [address] [place] [address] Name: KELLEE PEÑA Address: [address] [place] [address]
--- OUTSIDE RECORDS SUMMARY | 2024-02-06 12:41 | XMS_ITS | Continuity of Care Document ---
Author Organization [facility] Address [address] [place] [address]- Care Team Providers Care Power Project Manager Name Role Phone Swapnil SANTAMARIA, Annette Primary Care Physician [facility] Date[facility]s): 10/27/19 - 11/26/19 [facility] [address] [place] [address]- [facility] Attending Physician: Miles Olea Admitting Physician: AdmMiles glez Referring Physician: AdmtrMiles Allergies, Adverse Reactions, Alerts [...] Required Details, Route to Pharmacy Electronically, [facility] STORE 02747, 158, cm, 07/30/19 12:49:00 EDT, Height, 77.2, kg, 05/20/19 20:... Start Date: 08/19/19 Status: Ordered calcium (as carbonate)-vitamin D 500 mg-400 intl units oral tablet 1 tablet, By Mouth, 2 times a day, # 180 tablet, 1 Refills, Maintenance, 10/27/19 9:07:00 EDT, Tablet, [facility] #[id number], 1 tablet By Mouth 2 times a day, 158, cm, 09/30/19 10:10:00 EDT, Height, 77.2, kg, 05/20/19 20:41:00 EST, Dry Weight Start Date: 10/27/19 Status: Ordered CeleBREX 200 mg oral capsule 1 capsule = 200 mg, By Mouth, 2 times a day, Take with food to avoid upset stomach, # 180 capsule, 0 Refills, Maintenance, 10/19/19 12:33:00 EDT, Capsule, [facility] #[id number], 158, cm, 09/30/19 10:10:00 EDT, Height, 77.2, kg, 05/20/19 20:41:00 EST,... Start Date: 10/19/19 Stop Date: 01/17/20 Status: Ordered CeleBREX 200 mg oral capsule 1 capsule = 200 mg, By Mouth, 2 times a day, Until mail order is delivered, # 28 capsule, 0 Refills, Maintenance, 10/19/19 12:34:00 EDT, Capsule, [facility]/pharmacy #0993, 158, cm, 09/30/19 10:10:00 EDT, [...] 180 tablet, 1 Refills, Maintenance, [facility], 158, cm, 07/30/19 12:49:00 EDT, Height, 77.2, [...] 1 Refills, Soft Stop, 09/28/19 11:17:00 EDT, [facility]/pharmacy #0993, 158, cm, 09/08/19 10:27:00 EDT, Height, 77.2, kg, 05/20/19 20:41:00 EST, Dry Weight Start Date: 09/28/19 Stop Date: 03/26/20 Status: Ordered Mirapex 1 mg oral tablet 1.5 tablet = 1.5 mg, By Mouth, 3 times a day, # 135 tablet, 5 Refills, Maintenance, 05/08/19 15:54:00 EST, [facility]/pharmacy #0993, 157, cm, 05/07/19 16:41:00 EST, Height, [...] 8:23:00 EDT, Route to Pharmacy Electronically, [facility]/pharmacy #0993, 158, cm, 07/30/19 12:49:00 EDT, [...]
--- OUTSIDE RECORDS SUMMARY | 2024-02-06 12:41 | XMS_ITS | Continuity of Care Document ---
Author Organization [facility] Address [address] [place] [address]- Care Team Providers Care Loan Adviser Name Role Phone Ja LEWIS, Nitin Lyle Primary Care Physician [place] [facility] 05/07[place] - 05/14/19 [facility] [address] [place] [address] [facility] Attending Physician: Lewis Goodrich MD Admitting Physician: Lewsi Goodrich MD Referring Physician: Cecilia CAFE HELPER, Leonarda Allergies, Adverse Reactions, Alerts Substance Reaction [...] Maintenance, 03/04/19 15:42:41 EST,Route to Pharmacy Electronically, [id number], [facility]/pharmacy #[id number] Start Date: 03/04/19 Stop Date: 10/30/19 Status: Ordered baclofen 10 mg oral tablet 10 mg, 1, tablet, By Mouth, Daily at bedtime, # 30 tablet, Refills 2, Tot. Refills 2, Soft Stop, 04/08/19 11:08:07 EST, Route to Pharmacy Electronically, [id number], [facility]/pharmacy #0993, 157, cm, 03/04/19 15:05:00 EST, Height,... Start Date: 04/08/19 Status: Ordered calcium (as carbonate)-vitamin D 500 mg-400 intl units oral tablet 1 tablet, By Mouth, 2 times a day, # 60 tablet, 2 Refills, Maintenance, 03/03/19 8:36:21 EST, Tablet, 1 tablet By Mouth 2 times a day Start Date: 03/03/19 Status: Ordered Compression Stockings See Instructions, # [...] Status: Ordered gabapentin 300 mg oral capsule See Instructions, 1 capsule By Mouth Daily in the mid-afternoon. She should continue Gabapentin 600mg as prescribed, # 30 capsule, Refills 2, Tot. Refills 2, Maintenance, 03/04/19 15:43:20 EST, Instructions Replace Required Details, Route to Pharmac... Start Date: 03/04/19 Status: Ordered gabapentin 600 mg oral tablet See Instructions, TAKE 1 TABLET IN THE MORNING AND 1 TABLET AT BEDTIME. TAKE A 300MG CAPSULE IN THEMID-AFTERNOON, # 60 tablet, 3 Refills, Soft Stop, 03/04/19 15:40:49 EST Start Date: 03/04/19 Status: Ordered lactulose 10 gm/15 ml oral syrup 15 mL = 10 Gm, By Mouth, 2 times a day, PRN as needed for constipation, # 480 mL, 1 Refills, Maintenance, 03/18/19 16:19:47 EST, Syrup, 15 mL By Mouth 2 times a day,PRN:as needed for constipation Start Date: 03/18/19 Status: Ordered levothyroxine 0.088 mg oral tablet 1 tablet = 88 mcg, By Mouth, Daily, # 90 tablet, 1 Refills, Soft Stop, 04/09/19 14:04:36 EST, 157, cm, 03/04/19 15:05:00 EST, Height, 76.8, kg, 03/06/19 13:57:43 EST, Dry Weight Start Date: 04/09/19 Stop Date: 10/06/19 Status: Ordered Mirapex 1 mg oral tablet 1.5 tablet = 1.5 mg, By Mouth, 3 times a day, # 135 tablet, 5 Refills, Maintenance, 05/08/19 15:54:00 EST, [facility]/pharmacy #[id number], 157, cm, 05/07/19 16:41:00 EST, Height, 76.8, kg, 03/06/19 13:57:00 EST,Dry Weight Start Date: 05/08/19 Stop Date: 11/04/19 Status: Ordered Multivitamin With Minerals By Mouth, 0 Refills, Maintenance Start Date: 04/02/11 Status: Ordered traZODone 100 mg oral tablet 100 mg, 1, tablet, By Mouth, Daily at bedtime, # 30 tablet, Refills 2, Tot. Refills 2, Soft Stop, 05/12/19 13:56:00 EST, Route to Pharmacy Electronically, [facility]/pharmacy #[id number], 157, cm, 05/07/19 16:41:00 EST, Height, 76.8, kg, 03/06/19 13:57:00 EST, Dry... Start Date: 05/12/19 Stop Date: 08/10/19 Status: Ordered Problem List Condition Effective Dates Status Health Status Inform ant Adjustment disorder with dep ressed mood(Confirmed) Active Encounter for narcotic contr act discussion(Confirmed) Active Central sleep apnea(Confirmed) Active Cough(Confirmed) Active Diverticulosis of colon(Confirmed) 1 Active Hypothyroidism(Confirmed) Active Insomnia(Confirmed) Active Lumbar spondylosis(Confirmed) Active Opioid dependence, narcotic contract(Confirmed) 2 Active mild osteophytes(Confirmed) Active Osteopenia(Confirmed) 3, 4 Active Pain in limb(Confirmed) Active 1severe in sigmoid, mild in descending colon by abdominal CT 2Contract for fentanyl 25 mg every 3 days. 3Dexa 2014 osteopenia 4last dexa 2012 Vital Signs Most recent to oldest [Reference Range]: 1 Height 157 cm (05/07/19 4:41 PM) Weight 75 kg (05/07/19 4:41 PM) Body Mass Index [18.5-24.99] 30.43 *>HHI* (05/07/19 4:41 PM) Blood Pressure [90-138/55-84 mm Hg] 110/ 70mm Hg (05/07/19 4:41 PM) Blood pressure sites Arm, left (05/07/19 4:41 PM) Weight Obtained Via Patient/family state d (05/07/19 4:41 PM) Social History Social History Type Response Smoking Status Former smoker; Type: Cigarettes; Tobacco use times per day: quit smoking 30 yrs ago; entered on: 06/25/15 Sex
--- OUTSIDE RECORDS SUMMARY | 2024-02-06 12:41 | XMS_ITS | Continuity of Care Document ---
Author Organization [facility] Adult Address [address] [place] [address]- Care Team Providers Care Accident Investigator Name Role Phone Annette Castillo NP Primary Care Physician Encounter [facility] Date(s): 02/14/23 - 03/16/23 [facility] [address] [place] [address]- Allergies, Adverse Reactions, Alerts Substance Reaction Severity [...] virus vaccine, inactivated 6 01/24/12 Gi shakira [id number] 12y+ bivalent booster vax 03/02/22 Recorded SARS-CoV-2 [...] tetanus/diphtheria/pertussis, acel(Tdap) 12 09/29/07 Given 1Result Comment: [facility] [id number] 2Location History: pharmacy 3Location History: [facility] 4Admin Note: high dose done at [facility] 5Admin Note: immun records 6Admin Note: immun records 7Result Comment: [facility] 8Admin Note: immun records 9Admin Note: immun records 10Admin Note: immun records 11Admin Note: immun records 12Admin Note: immun records Medications Aspirin Low Dose 81 mg oral delayed release tablet 1 tablet, By Mouth, Daily, # 30 tablet, 5 Refills, Maintenance, 10/16/22 7:11:00 EDT, [facility]/pharmacy #1972, 158, cm, 10/10/22 9:38:00 EDT, Height, 80.8, kg, 10/04/22 20:27:00 EDT, Dry Weight Start Date: 10/16/22 Status: Ordered baclofen 10 mg oral tablet 1, tablet, By Mouth, Daily at bedtime, # 90 tablet, Refills 1, Tot. Refills 1, Maintenance, 02/18/23 10:44:00 EDT, Route to Pharmacy Electronically, [facility]/pharmacy #1972, 156.5, cm, 02/18/23 10:06:00 EDT, Height, [...] 3 Refills, Maintenance, 10/16/22 17:51:00 EDT, Tablet, [facility]/pharmacy #1972, 1 tablet By Mouth 2 times a day,x90 days, 158, cm, 10/10/22 9:38:00 EDT, Height, 80.8, kg, 10/04/22 20:27:00 EDT, Dry Weight Start Date: 10/16/22 Stop Date: 10/11/23 Status: Ordered gabapentin 600 mg oral tablet See Instructions, TAKE 1 TABLET BY MOUTH EVERY MORNING AND 1 TABLET EVERY NIGHT AT BEDTIME, # 60 tablet, 0 Refills, Maintenance, 03/12/23 15:33:00 EST, [facility]/pharmacy #1972, 156.5, cm, 02/18/23 10:06:00 EDT, Height, 77, kg, 02/04/23 0:27:00 EDT, Dry Weight Start Date: 03/12/23 Status: Ordered levothyroxine 0.088 mg oral tablet See Instructions, TAKE 1 TABLET BY MOUTH EVERY DAY, # 90 tablet, 1 Refills, Maintenance, 01/04/23 7:17:00 EDT, [facility], 158, cm, 10/10/22 9:38:00 EDT, Height, 80.8, kg, 10/04/22 20:27:00 EDT,Dry Weight Start Date: 01/04/23 Status: Ordered meloxicam 15 mg oral tablet 1 tablet = 15 mg, By Mouth, Daily, # 30 tablet, 0 Refills, Maintenance, 02/06/23 15:50:00 EDT, Tablet, [facility]/pharmacy #1972, Partial fill upon patient request if [...] 03/14/23 15:20:00 EST, Route to Pharmacy Electronically, [facility]/pharmacy #1972, 156.5, cm, 02/18/23 10:06:00 EDT, Height, [...] Care Team Personnel Name: Angie Pope Position: [facility] Onco RN Member Role: Primary Care Nurse Name: Julissa Patel RN Position: [facility] RN Member Role: Primary Care Nurse Name: Olga Brooke RN Position: [facility] RN Member Role: Primary Care Nurse Name: Annette Castillo NP Position: [facility] PCO Associate Professional Member Role: PCP Address: Address: [address] [place] [address]- Name: Grady Ortiz Position: [facility] Outreach Member Role: Lifetime Consulting Physician Address: Address: [address] [place] [address]- Care Team Related Persons Name: KELLEE BARRAGAN Name: ANUEL PARKER Address: home [address] [place] [address] Name: ANUEL GU Address: [address] [place] [address] Name: KELLEE PEÑA Address: home [address] [place] [address]
--- OUTSIDE RECORDS SUMMARY | 2024-02-06 12:41 | XMS_ITS | Continuity of Care Document ---
Author Organization [facility] Adult Address [address] [place] [address]- Care Team Providers Care Pattern Puncher Name Role Phone Annette Castillo NP Primary Care Physician Encounter [facility] Date(s): 02/18/23 - 02/25/23 [facility] [address] [place] [address]- Encounter Diagnosis Acute low back pain(Discharge Diagnosis) - 02/18/23 Medicare annual wellness visit, subsequent(Discharge Diagnosis) - 02/18/23 Osteopenia(Discharge Diagnosis) - 02/18/23 Obese class I(Discharge Diagnosis) - 02/18/23 Lumbar spondylosis(Discharge Diagnosis) - 02/18/23 Rhinitis(Discharge Diagnosis) - 02/18/23 Central sleep apnea(Discharge Diagnosis) - 02/18/23 Hypothyroidism(Discharge Diagnosis) - 02/18/23 Attending Physician: Annette Castillo NP Allergies, Adverse Reactions, [...] virus vaccine, inactivated 6 01/24/12 Gi shakira [id number] 12y+ bivalent booster vax 03/02/22 Recorded SARS-CoV-2 [...] tetanus/diphtheria/pertussis, acel(Tdap) 12 09/29/07 Given 1Result Comment: [facility] [id number] 2Location History: pharmacy 3Location History: [facility] 4Admin Note: high dose done at [facility] 5Admin Note: immun records 6Admin Note: immun records 7Result Comment: [facility] 8Admin Note: immun records 9Admin Note: immun records 10Admin Note: immun records 11Admin Note: immun records 12Admin Note: immun records Medications Aspirin Low Dose 81 mg oral delayed release tablet 1 tablet, By Mouth, Daily, # 30 tablet, 5 Refills, Maintenance, 10/16/22 7:11:00 EDT, [facility]/pharmacy #1972, 158, cm, 10/10/22 9:38:00 EDT, Height, 80.8, kg, 10/04/22 20:27:00 EDT, Dry Weight Start Date: 10/16/22 Status: Ordered baclofen 10 mg oral tablet 1, tablet, By Mouth, Daily at bedtime, # 90 tablet, Refills 1, Tot. Refills 1, Maintenance, 02/18/23 10:44:00 EDT, Route to Pharmacy Electronically, [facility]/pharmacy #1972, 156.5, cm, 02/18/23 10:06:00 EDT, [...] 3 Refills, Maintenance, 10/16/22 17:51:00 EDT, Tablet, [facility]/pharmacy #1972, 1 tablet By Mouth 2 times a day,x90 days, 158, cm, 10/10/22 9:38:00 EDT, Height, 80.8, kg, 10/04/22 20:27:00 EDT, Dry Weight Start Date: 10/16/22 Stop Date: 10/11/23 Status: Ordered gabapentin 600 mg oral tablet See Instructions, TAKE 1 TABLET BY MOUTH EVERY MORNING AND 1 TABLET EVERY NIGHT AT BEDTIME, # 60 tablet, 0 Refills, Maintenance, 02/05/23 11:14:00 EDT, [facility], 158, cm, 02/04/23 0:27:00 EDT,Height, 77, kg, 02/04/23 0:27:00 EDT, Dry Weight Start Date: 02/05/23 Status: Ordered levothyroxine 0.088 mg oral tablet See Instructions, TAKE 1 TABLET BY MOUTH EVERY DAY, # 90 tablet, 1 Refills, Maintenance, 01/04/23 7:17:00 EDT, [facility], 158, cm, 10/10/22 9:38:00 EDT, Height, 80.8, kg, 10/04/22 20:27:00 EDT,Dry Weight Start Date: 01/04/23 Status: Ordered meloxicam 15 mg oral tablet 1 tablet = 15 mg, By Mouth, Daily, # 30 tablet, 0 Refills, Maintenance, 02/06/23 15:50:00 EDT, Tablet, [facility]/pharmacy #1972, Partial fill upon patient request if the prescription is for a schedule II opioid drug., 158, cm, 02/06/23 15:24:00 EDT, Height,... Start Date: 02/06/23 Stop Date: 03/06/23 Status: Ordered pramipexole 1 mg oral tablet 1.5 tablet, By Mouth, 3 times a day, # 135 tablet, 5 Refills, Maintenance, 09/18/22 8:41:00 EDT, [facility]/pharmacy #1972, 157.4, cm, 02/05/22 10:42:00 EDT, [...] 02/05/23 3:59:00 EDT, Route to Pharmacy Electronically, [facility], 158, cm, 02/04/23 0:27:00 EDT, Height, 77, [...] CT 2Dexa 2014 osteopenia 3last dexa 2012 Diagnosis Diagnosis Type Effective Dates Health Status Clinical Service Informant Acute low back pain Discharge Diagnosis 02/18/23 Medicare annual wellness visit, subsequent Discharge Diagnosis 02/18/23 Osteopenia Discharge Diagnosis 02/18/23 Obese class I Discharge Diagnosis 02/18/23 Lumbar spondylosis Discharge Diagnosis 02/18/23 Rhinitis Discharge Diagnosis 02/18/23 Central sleep apnea Discharge Diagnosis 02/18/23 Hypothyroidism Discharge Diagnosis 02/18/23 Vital Signs Most recent to oldest [Reference Range]: 1 Height 156.5 cm (02/18/23 10:06 AM) Weight 77.7 kg (02/18/23 10:06 AM) Oxygen Saturation [94-100 %] 96 % (02/18/23 10:06 AM) Pulse Rate [55-90 bpm] 70 bpm (02/18/23 10:06 AM) Body Mass Index [18.5-24.99 kg/m2] 31.72 kg/m2 *>HHI* (02/18/23 10:06 AM) Blood Pressure [90-138/55-84 mm Hg] 98/6 5mm Hg (02/18/23 10:06 AM) Temperature [96.8-100.4 DegF] 97.6 DegF (02/18/23 10:06 AM) Mode of Delivery (Oxygen) Room air (02/18/23 10:06 AM) Blood pressure sites Arm, left (02/18/23 10:06 AM) Temperature Route Oral (02/18/23 10:06 AM) Weight Obtained Via Standing scale (02/18/23 10:06 AM) Social History Social History Type Response Smoking Status Never (less than 100 in lifetime) entered on: 11/09/20 Sex Note * Mathew Coyle: PERFORM, SIGN, VERIFY Event Display: Patient Education/Instruction Authored Date: [id number] [facility] *[facility] Clinical Summary Name HAWK PARKER Age 72 Years 1950 PCP Annette Castillo NP PCP Visit Date 02/18/2023 10:01:00 Additional Instructions: 1 year - mwv Scheduled Appointments?? Future Appointments ?No Future Appointments Scheduled Follow-Up Instructions ?? Diagnosis Medications: Please continue your medications until treatment is completed or stopped by your provider. Discuss any questions related to medications with your provider. Medications to Continue with No Changes These medications were not printed or sent to your pharmacy Aspirin (Aspirin Low Dose 81 mg oral delayed release tablet) 1 tab(s) Oral Daily. Refills: 5. Next Dose: Baclofen (baclofen 10 mg oral tablet) 1 tab(s) Oral Daily at Bedtime. Refills: 1. Next Dose: Calcium And Vitamin D Combination (calcium (as carbonate)-vitamin D 500 mg-400 intl units oral tablet) 1 tab(s) Oral twice a day for 90 Days. Refills: 3. Next Dose: Gabapentin (gabapentin 600 mg oral tablet) TAKE 1 TABLET BY MOUTH EVERY MORNING AND 1 TABLET EVERY NIGHT AT BEDTIME. Refills: 0. Next Dose: Levothyroxine (levothyroxine 0.088 mg oral tablet) TAKE 1 TABLET BY MOUTH EVERY DAY. Refills: 1. Next Dose: Meloxicam (meloxicam 15 mg oral tablet) 1 tab(s) Oral Daily. Refills: 0. Next Dose: Miscellaneous Rx (BACLOFEN 10 MG TABLET) 1 tab(s) Oral Daily at Bedtime. Refills: 1. Next Dose: Miscellaneous Rx (BACLOFEN 10 MG TABLET) 1 tab(s) Oral Daily at Bedtime. Refills: 1. Next Dose: Pantoprazole (Protonix 40 mg oral delayed release tablet) 1 tab(s) Oral Daily. Refills: 1. Next Dose: Pramipexole (pramipexole 1 mg oral tablet) 1.5 tab(s) Oral 3 times a day. Refills: 5. Next Dose: Trazodone (traZODone 100 mg oral tablet) 1 tab(s) Oral Daily at Bedtime. Refills: 0. Next Dose: Allergy Info:?? penicillins; morphine Medications Given This Visit Future Orders ?No future orders Vital Signs Height 156.5 cm Weight 77.7 kg BMI 31.72 kg/m2 Blood Pressure 98 mm Hg/65 mm Hg Temperature 97.6 DegF Pulse Rate 70 bpm Respiratory Rate 02 Sat Mode of Delivery 96 %/Room air You can now view a summary of your hospital visit from the comfort of your home through a free online portal called [employer]. [employer] is a website that allows you to securely view your medical information including discharge summary, medications and follow-up visits. ??You can alsosend a secure electronic message to your doctor???s office to request appointments, renew medications or just ask a question. You can enroll at [email or web address] or register during your next office visit. Disclaimer:?? The information provided is of a general nature and is intended to be used in conjunction with the recommendations and advice of your health care practitioner. ??Every effort has been made to ensure that the information provided is accurate and complete at the time it is provided to you however, as your needs change, or, as new ??information becomes available, different or additional instructions may be required. If you have questions, please consult with your primary care provider or pharmacist, as appropriate. ??This information is not intended to serve as substitution for assessment and evaluation by a qualified health care provider. If you do not have a primary care provider, you may find a [facility] provider by calling [facility] redIT Link at [phone]. [facility], in keeping with [facility] guidance, no longer requires face masks for staff, patientsor visitors in most situations. Similar to time spent indoors at other locations, there is the chance that you were exposed to respiratory viruses during your time with us (such as flu or COVID-19).? If you develop symptoms concerning for a viral respiratory infection, please seek testing (and treatment if indicated) from your medical provider or home test kit. For information about the plan of care including goals and instructions for your diagnosis, please see the patient education orders section of this document. Patient Education Materials?? The content of this educational material or handout may have been modified, supplemented, or adapted from its original content and format to support your individualized medical care. * Annette Castillo NP: PERFORM, SIGN, VERIFY Event Display: Patient Education/Instruction Authored Date: [facility] *[facility] Clinical Summary Name HAWK PARKER Age 72 Years 1950 PCP Annette Castillo NP PCP Visit Date 02/18/2023 10:01:00 Additional Instructions: 1 year - mwv Scheduled Appointments?? Future Appointments ?No Future Appointments Scheduled Follow-Up Instructions ?? Diagnosis Medications: Please continue your medications until treatment is completed or stopped by your provider. Discuss any questions related to medications with your provider. Medications to Continue with No Changes These medications were not printed or sent to your pharmacy Aspirin (Aspirin Low Dose 81 mg oral delayed release tablet) 1 tab(s) Oral Daily. Refills: 5. Next Dose: Baclofen (baclofen 10 mg oral tablet) 1 tab(s) Oral Daily at Bedtime. Refills: 1. Next Dose: Calcium And Vitamin D Combination (calcium (as carbonate)-vitamin D 500 mg-400 intl units oral tablet) 1 tab(s) Oral twice a day for 90 Days. Refills: 3. Next Dose: Gabapentin (gabapentin 600 mg oral tablet) TAKE 1 TABLET BY MOUTH EVERY MORNING AND 1 TABLET EVERY NIGHT AT BEDTIME. Refills: 0. Next Dose: Levothyroxine (levothyroxine 0.088 mg oral tablet) TAKE 1 TABLET BY MOUTH EVERY DAY. Refills: 1. Next Dose: Meloxicam (meloxicam 15 mg oral tablet) 1 tab(s) Oral Daily. Refills: 0. Next Dose: Miscellaneous Rx (BACLOFEN 10 MG TABLET) 1 tab(s) Oral Daily at Bedtime. Refills: 1. Next Dose: Miscellaneous Rx (BACLOFEN 10 MG TABLET) 1 tab(s) Oral Daily at Bedtime. Refills: 1. Next Dose: Pantoprazole (Protonix 40 mg oral delayed release tablet) 1 tab(s) Oral Daily. Refills: 1. Next Dose: Pramipexole (pramipexole 1 mg oral tablet) 1.5 tab(s) Oral 3 times a day. Refills: 5. Next Dose: Trazodone (traZODone 100 mg oral tablet) 1 tab(s) Oral Daily at Bedtime. Refills: 0. Next Dose: Allergy Info:?? penicillins; morphine Medications Given This Visit Future Orders ?No future orders Vital Signs Height 156.5 cm Weight 77.7 kg BMI 31.72 kg/m2 Blood Pressure 98 mm Hg/65 mm Hg Temperature 97.6 DegF Pulse Rate 70 bpm Respiratory Rate 02 Sat Mode of Delivery 96 %/Room air You can now view a summary of your hospital visit from the comfort of your home through a free online portal called [employer]. [employer] is a website that allows you to securely view your medical information including discharge summary, medications and follow-up visits. ??You can alsosend a secure electronic message to your doctor???s office to request appointments, renew medications or just ask a question. You can enroll at [email or web address] or register during your next office visit. Disclaimer:?? The information provided is of a general nature and is intended to be used in conjunction with the recommendations and advice of your health care practitioner. ??Every effort has been made to ensure that the information provided is accurate and complete at the time it is provided to you however, as your needs change, or, as new ??information becomes available, different or additional instructions may be required. If you have questions, please consult with your primary care provider or pharmacist, as appropriate. ??This information is not intended to serve as substitution for assessment and evaluation by a qualified health care provider. If you do not have a primary care provider, you may find a [facility] provider by calling [facility] redIT Link at [phone]. [facility], in keeping with [facility] guidance, no longer requires face masks for staff, patientsor visitors in most situations. Similar to time spent indoors at other locations, there is the chance that you were exposed to respiratory viruses during your time with us (such as flu or COVID-19).? If you develop symptoms concerning for a viral respiratory infection, please seek testing (and treatment if indicated) from your medical provider or home test kit. For information about the plan of care including goals and instructions for your diagnosis, please see the patient education orders section of this document. Patient Education Materials?? The content of this educational material or handout may have been modified, supplemented, or adapted from its original content and format to support your individualized medical care. Patient Care team information Care Team Personnel Name: Angie Pope Position: [facility] Onco RN Member Role: Primary Care Nurse Name: Julissa Patel RN Position: [facility] RN Member Role: Primary Care Nurse Name: Olga Brooke RN Position: [facility] RN Member Role: Primary Care Nurse Name: Annette Castillo NP Position: [facility] PCO Associate Professional Member Role: PCP Address: Address: [address] [place] [address] Name: Grady Ortiz Position: [facility] Outreach Member Role: Lifetime Consulting Physician Address: Address: [address] [place] [address] Care Team Related Persons Name: KELLEE BARRAGAN Name: ANUEL PARKER Address: home [address] [place] [id number] Name: ANUEL GU Address: [address] [place] [address] Name: KELLEE PEÑA Address: home [address] [place] [id number]
--- OUTSIDE RECORDS SUMMARY | 2024-02-06 12:41 | XMS_ITS | Continuity of Care Document ---
Author Organization [facility] Adult Address [address] [place] [address]- Care Team Providers Care Contracts Advisor Name Role Phone Cecilia SANTAMARIA, Leonarda Primary Care Physician [phone] [facility] Date(s): 07/30/19 - 08/06/[address] [address]- [facility] Encounter Diagnosis Physical exam(Discharge Diagnosis) - 07/30/19 Adjustment disorder with depressed mood(Discharge Diagnosis) - 07/30/19 Central sleep apnea(Discharge Diagnosis) - 07/30/19 Hypothyroidism(Discharge Diagnosis) - 07/30/19 Insomnia(Discharge Diagnosis) - 07/30/19 Lumbar spondylosis(Discharge Diagnosis) - 07/30/19 Left hip pain(Discharge Diagnosis) - 07/30/19 Constipation(Discharge Diagnosis) - 07/30/19 Attending Physician: Not on Staff, Attending MD Allergies, Adverse Reactions, Alerts Substance Reaction [...] live 7 01/28/14 Given Zostavax (oldterm) 8 2/18/14 Given tetanus/diphtheria/pertussis, acel(Tdap) 9 10/22/11 Given tetanus/diphtheria/pertussis, acel(Tdap) 10 09/29/07 Given 1Location History: pharmacy 2Location History: [facility] 3Admin Note: high dose done at [facility] 4Admin Note: immun records 5Admin Note: immun records 6Admin Note: immun records 7Admin Note: immun records 8Admin Note: immun records 9Admin Note: immun records 10Admin Note: immun records Medications aspirin 81 mg oral delayed release tablet 81 mg, By Mouth, Daily, # 60 tablet, Refills 3, Tot. Refills 3, Maintenance, 03/04/19 15:42:41 EST,Route to Pharmacy Electronically, [id number], [facility]/pharmacy #[id number] Start Date: 03/04/19 Stop Date: 10/30/19 Status: Ordered baclofen 10 mg oral tablet See Instructions, TAKE 1 TABLET BY MOUTH EVERYDAY AT BEDTIME, # 90 tablet, Refills 0, Maintenance, Instructions Replace Required Details, Route to Pharmacy Electronically, [facility], 157, cm, 06/23/19 9:54:00 EST, Height, 77.2, kg, 05/20/19 20:4... Start Date: 07/01/19 Status: Ordered calcium (as carbonate)-vitamin D 500 mg-400 intl units oral tablet 1 tablet, By Mouth, 2 times a day, # 60 tablet, 5 Refills, Maintenance, 05/26/19 13:08:00 EST, Tablet, [facility]/pharmacy #[id number], 1 tablet By Mouth 2 times a day, 157, cm, 05/07/19 16:41:00 EST, Height, 77.2, kg, 05/20/19 20:41:00 EST, Dry Weight Start Date: 05/26/19 Status: Ordered CeleBREX 200 mg oral capsule 1 capsule = 200 mg, By Mouth, 2 times a day, Take with food to avoid upset stomach Start after stopping prednisone, # 60 capsule, 1 Refills, Maintenance, 08/03/19 9:15:00 EDT, Capsule, [facility]/pharmacy #0993, 158, cm, 07/30/19 12:49:00 EDT, Height, 77.2,... Start Date: 08/03/19 Status: Ordered Compression Stockings See Instructions, # [...] Status: Ordered gabapentin 300 mg oral capsule 1, capsule, By Mouth, Daily, IN THE MID-AFTERNOON. SHE SHOULD CONTINUE GABAPENTIN 600 MG PRESCRIBED, # 90 capsule, Refills 2, Tot. Refills 0, Maintenance, 05/26/19 17:59:00 EST, Route to Pharmacy Electronically, [facility], 157, cm, 05/07/19 1... Start Date: 05/26/19 Status: Ordered lactulose 10 gm/15 ml oral syrup 15 mL = 10 Gm, By Mouth, 2 times a day, PRN as needed for constipation, # 480 mL, 1 Refills, Maintenance, 07/27/19 12:04:00 EDT, Syrup, [facility]/pharmacy #0993, 15 mL By Mouth 2 [...] tablet, 5 Refills, Maintenance, 05/08/19 15:54:00 EST, [facility]/pharmacy #[id number], 157, cm, 05/07/19 16:41:00 EST, [...] 05/12/19 13:56:00 EST, Route to Pharmacy Electronically, [facility]/pharmacy #0993, 157, cm, 05/07/19 16:41:00 EST, [...] Effective Dates Health Status Clinical Service Informant Physical exam Discharge Diagnosis 07/30/19 Adjustment disorder with depressed mood Discharge Diagnosis 07/30/19 Central sleep apnea Discharge Diagnosis 07/30/19 Hypothyroidism Discharge Diagnosis 07/30/19 Insomnia Discharge Diagnosis 07/30/19 Lumbar spondylosis Discharge Diagnosis 07/30/19 Left hip pain Discharge Diagnosis 07/30/19 Constipation Discharge Diagnosis 07/30/19 Vital Signs Most recent to oldest [Reference Range]: 1 Height 158 cm (07/30/19 12:49 PM) Weight 77.9 kg (07/30/19 12:49 PM) Oxygen Saturation [94-100 %] 97 % (07/30/19 12:49 PM) Pulse Rate [55-90 bpm] 88 bpm (07/30/19 12:49 PM) Body Mass Index [18.5-24.99] 31.2 *>HHI* (07/30/19 12:49 PM) Blood Pressure [90-138/55-84 mm Hg] 92/6 4mm Hg (07/30/19 12:49 PM) Temperature [96.8-100.4 DegF] 98 DegF (07/30/19 12:49 PM) Mode of Delivery (Oxygen) Room air (07/30/19 12:49 PM) Blood pressure sites Leg, left (07/30/19 12:49 PM) Temperature Route Oral (07/30/19 12:49 PM) Weight Obtained Via Standing scale (07/30/19 12:49 PM) Social History Social History Type Response Smoking Status Former smoker; Type: Cigarettes; Tobacco use times per day: quit smoking 30 yrs ago; entered on: 06/25/15 Sex
--- OUTSIDE RECORDS SUMMARY | 2024-02-06 12:41 | XMS_ITS | Continuity of Care Document ---
Author Organization [facility] Address [address] [place] [address]- Care Team Providers Care Retail Management Trainee Name Role Phone Cecilia SANTAMARIA, Leonarda Primary Care Physician Encounter [facility] [place] Date(s): 07/24/19 - 08/03/19 [facility] [address] [place] [address]- [facility] Attending Physician: Miles Olea Admitting Physician: Miles Olea Referring Physician: AdmtrMiles Allergies, Adverse Reactions, Alerts [...] Maintenance, 03/04/19 15:42:41 EST,Route to Pharmacy Electronically, [id number], [facility]/pharmacy #[id number] Start Date: 03/04/19 Stop Date: 10/30/19 Status: Ordered baclofen 10 mg oral tablet See Instructions, TAKE 1 TABLET BY MOUTH EVERYDAY AT BEDTIME, # 90 tablet, Refills 0, Maintenance, Instructions Replace Required Details, Route to Pharmacy Electronically, [facility] STORE 15537, 157, cm, 06/23/19 9:54:00 EST, Height, 77.2, kg, 05/20/19 20:4... Start Date: 07/01/19 Status: Ordered calcium (as carbonate)-vitamin D 500 mg-400 intl units oral tablet 1 tablet, By Mouth, 2 times a day, # 60 tablet, 5 Refills, Maintenance, 05/26/19 13:08:00 EST, Tablet, [facility]/pharmacy #0993, 1 tablet By Mouth 2 [...] 1 Refills, Maintenance, 08/03/19 9:15:00 EDT, Capsule, [facility]/pharmacy #0993, 158, cm, 07/30/19 12:49:00 [...] 05/26/19 17:59:00 EST, Route to Pharmacy Electronically, [facility] STORE 02677, 157, cm, 05/07/19 1... Start Date: 05/26/19 Status: Ordered lactulose 10 gm/15 ml oral syrup 15 mL = 10 Gm, By Mouth, 2 times a day, PRN as needed for constipation, # 480 mL, 1 Refills, Maintenance, 07/27/19 12:04:00 EDT, Syrup, [facility]/pharmacy #0993, 15 mL By Mouth 2 times [...] tablet, 5 Refills, Maintenance, 05/08/19 15:54:00 EST, [facility]/pharmacy #0993, 157, cm, 05/07/19 16:41:00 EST, Height, 76.8, kg, 03/06/19 13:57:00 EST,Dry Weight Start Date: 05/08/19 Stop Date: 11/04/19 Status: Ordered Multivitamin With Minerals By Mouth, 0 Refills, Maintenance Start Date: 04/02/11 Status: Ordered predniSONE 20 mg oral tablet 1 tablet = 20 mg, By Mouth, Daily, for 7 days, # 7 tablet, 0 Refills, Acute 08/06/19 13:16:00 EDT, 07/30/19 13:16:00 EDT, Tablet, [facility]/pharmacy #0993, 158, cm, 07/30/19 12:49:00 EDT, Height, 77.2, kg,05/20/19 20:41:00 EST, Dry Weight Start Date: 07/30/19 Stop Date: 08/06/19 Status: Ordered traZODone 100 mg oral tablet 100 mg, 1, tablet, By Mouth, Daily at bedtime, # 30 tablet, Refills 2, Tot. Refills 2, Soft Stop, 05/12/19 13:56:00 EST, Route to Pharmacy Electronically, [facility]/pharmacy #0993, 157, cm, 05/07/19 16:41:00 [...] quit smoking 30 yrs ago; entered on: 2/27/16 Sex
--- OUTSIDE RECORDS SUMMARY | 2024-02-06 12:41 | XMS_ITS | Continuity of Care Document ---
Author Organization [facility] Address [address] [place] [address]- Care Team Providers Care Sleeve Baster Name Role Phone Annette Castillo NP Primary Care Physician [facility] Date[facility]s): 02/25/23 - 03/27/23 [facility] [address] [place] [address]- Allergies, Adverse Reactions, Alerts Substance Reaction Severity [...] virus vaccine, inactivated 6 01/24/12 Gi shakira [id number] 12y+ bivalent booster vax 03/02/22 Recorded SARS-CoV-2 [...] acel(Tdap) 12 09/29/07 Given 1Result Comment: [facility] [id number] 2Location History: pharmacy 3Location History: [facility] 4Admin Note: high dose done at [facility] 5Admin Note: immun records 6Admin Note: immun records 7Result Comment: [facility] 8Admin Note: immun records 9Admin Note: immun records 10Admin Note: immun records 11Admin Note: immun records 12Admin Note: immun records Medications Aspirin Low Dose 81 mg oral delayed release tablet 1 tablet, By Mouth, Daily, # 30 tablet, 5 Refills, Maintenance, 10/16/22 7:11:00 EDT, [facility]/pharmacy #1972, 158, cm, 10/10/22 9:38:00 EDT, Height, 80.8, kg, 10/04/22 20:27:00 EDT, Dry Weight Start Date: 10/16/22 Status: Ordered baclofen 10 mg oral tablet 1, tablet, By Mouth, Daily at bedtime, # 90 tablet, Refills 1, Tot. Refills 1, Maintenance, 02/18/23 10:44:00 EDT, Route to Pharmacy Electronically, [facility]/pharmacy #1972, 156.5, cm, 02/18/23 10:06:00 EDT, Height, [...] 3 Refills, Maintenance, 10/16/22 17:51:00 EDT, Tablet, [facility]/pharmacy #1972, 1 tablet By Mouth 2 times a day,x90 days, 158, cm, 10/10/22 9:38:00 EDT, Height, 80.8, kg, 10/04/22 20:27:00 EDT, Dry Weight Start Date: 10/16/22 Stop Date: 10/11/23 Status: Ordered gabapentin 600 mg oral tablet See Instructions, TAKE 1 TABLET BY MOUTH EVERY MORNING AND 1 TABLET EVERY NIGHT AT BEDTIME, # 60 tablet, 0 Refills, Maintenance, 03/12/23 15:33:00 EST, [facility]/pharmacy #1972, 156.5, cm, 02/18/23 10:06:00 EDT, Height, 77, kg, 02/04/23 0:27:00 EDT, Dry Weight Start Date: 03/12/23 Status: Ordered levothyroxine 0.088 mg oral tablet See Instructions, TAKE 1 TABLET BY MOUTH EVERY DAY, # 90 tablet, 1 Refills, Maintenance, 01/04/23 7:17:00 EDT, [facility], 158, cm, 10/10/22 9:38:00 EDT, Height, 80.8, kg, 10/04/22 20:27:00 EDT,Dry Weight Start Date: 01/04/23 Status: Ordered meloxicam 15 mg oral tablet 1 tablet = 15 mg, By Mouth, Daily, # 30 tablet, 0 Refills, Maintenance, 02/06/23 15:50:00 EDT, Tablet, [facility]/pharmacy #1972, Partial fill upon patient request if [...] 03/14/23 15:20:00 EST, Route to Pharmacy Electronically, [facility]/pharmacy #1972, 156.5, cm, 02/18/23 10:06:00 EDT, Height, [...] Care Nurse Name: Julissa Patel RN Position: [facility] RN Member Role: Primary Care Nurse Name: Olga Brooke RN Position: [facility] RN Member Role: Primary Care Nurse Name: Annette Castillo NP Position: [facility] PCO Associate Professional Member Role: PCP Address: Address: [address] [place] [address]- Name: Grady Ortiz Position: [facility] Outreach Member Role: Lifetime Consulting Physician Address: Address: [address] [place] [address]- Care Team Related Persons Name: KELLEE BARRAGAN Name: ANUEL PARKER Address: home [address] [place] [address] Name: ANUEL GU Address: [address] [place] [address] Name: KELLEE PEÑA Address: home [address] [place] [address]
--- OUTSIDE RECORDS SUMMARY | 2024-02-06 12:41 | XMS_ITS | Continuity of Care Document ---
Author Organization [facility] Address [address] [place] [address]- Care Team Providers Care Social Work Msw Name Role Phone Annette Castillo NP Primary Care Physician [phone] [facility]counter [facility] Date[facility]s): 10/15/22 - 11/14/22 [facility] [address] [place] [address]- Allergies, Adverse Reactions, Alerts Substance Reaction Severity [...] tetanus/diphtheria/pertussis, acel(Tdap) 12 09/29/07 Given 1Result Comment: [facility] [id number] 2Location History: pharmacy 3Location History: [facility] 4Admin Note: high dose done at [facility] 5Admin Note: immun records 6Admin Note: immun records 7Result Comment: [facility] 8Admin Note: immun records 9Admin Note: [...] 10/16/22 13:33:00 EDT, Route to Pharmacy Electronically, [facility]/pharmacy #1972, 158, cm, 10/10/22 9:38:00 EDT,Height, [...] 04/29/23 8:23:00 EST, 05/04/22 8:23:00 EST, [facility] #[id number], LABS NEEDED FOR FURTHER REFILLS, 157.4, cm, [...] 07/25/22 16:33:00 EDT, Route to Pharmacy Electronically, [id number], 157.4, cm, 02/05/22 10:42:00 EDT, Height, 77.6, [...] Associate Professional Member Role: PCP Address: Address: [address] [place] [address]- Name: Grady Ortiz Position: [facility] Outreach Member Role: Lifetime Consulting Physician Address: Address: [address] [place] [address]- Care Team Related Persons Name: ANUEL PARKER Address: home [address] [place] [address] Name: ANUEL GU Address: [address] [place], [place] Name: KELLEE PEÑA Address: [address] [place] [address]
--- OUTSIDE RECORDS SUMMARY | 2024-02-06 12:41 | XMS_ITS | Continuity of Care Document ---
Author Organization [facility] Address [address] [place] [address]- Care Team Providers Care Director International Name Role Phone Annette Castillo NP Primary Care Physician [facility] Date[facility]s): 11/16/20 - 12/16/20 [facility] [address] [place] [address]- Allergies, Adverse Reactions, Alerts Substance Reaction Severity [...] [facility] 4Admin Note: high dose done at [facility] 5Admin Note: immun records 6Admin Note: immun records 7Admin Note: immun records 8Admin Note: immun records 9Admin Note: immun records 10Admin Note: immun records 11Admin Note: immun records Medications aspirin 81 mg oral delayed release tablet = 81 mg, By Mouth, Daily, # 30 tablet, 3 Refills, Maintenance, 11/07/20 15:07:00 EDT, [id number], 157, cm, 09/07/20 14:26:00 EDT, Height, 76.3, kg, 03/12/20 13:32:00 EST, Dry Weight Start Date: 11/07/20 Status: Ordered baclofen 10 mg oral tablet 10 mg, 1, tablet, By Mouth, Daily at bedtime, TAKE 1 TABLET BY MOUTH EVERYDAY AT BEDTIME, # 90 tablet, Refills 0, Tot. Refills 0, Maintenance, 11/09/20 8:38:00 EDT, Route to Pharmacy Electronically, [id number], Partial fill upon patient req... Start Date: 11/09/20 Stop Date: 02/07/21 Status: Ordered calcium (as carbonate)-vitamin D 500 mg-400 intl units oral tablet 1 tablet, By Mouth, 2 times a day, # 180 tablet, 3 Refills, Maintenance, 11/09/20 8:38:00 EDT, Tablet, [id number], 1 tablet By Mouth 2 times a [...] 30 sprays, 0 Refills, Acute, [facility], 30, SPRAY 2 SPRAYS INTO BOTH NOSTRILS 2 TIMES A DAY FOR 30 DAYS, 157.5, cm, 11/09/20 8:24:00 EDT, Height, 76.3, kg, 03/12/20... Start Date: 12/02/20 Status: Ordered levothyroxine 0.088 mg oral tablet 1 tablet, By Mouth, Daily, # 30 tablet, 5 Refills, Maintenance, 12/01/20 11:20:00 EDT, [facility], 157.5, cm, 11/09/20 8:24:00 EDT, Height, 76.3, kg, 03/12/20 13:32:00 EST, Dry Weight Start Date: 12/01/20 Status: Ordered Mirapex 1 mg oral tablet 1.5 tablet = 1.5 mg, By Mouth, 3 times a day, # 135 tablet, 5 Refills, Maintenance, 09/09/20 8:27:00 EDT, [id number], 157, cm, 09/07/20 14:26:00 EDT, Height, 76.3, [...] EDT, Route to Pharmacy Electronically, [facility] #[id number], 157, cm, 06/30/20 10:07:00 EST, Height, 76.3, kg, 03/12/20 13:32:00 EST, Dry We... Start Date: 08/05/20 Status: Ordered Zofran 4 mg oral tablet 1 tablet = 4 mg, By Mouth, Every 8 hours, PRN Nausea & Vomiting, # 10 tablet, 0 Refills, Maintenance, 03/13/20 9:49:00 EST, Tablet, [facility], Partial fill upon patient [...]
--- OUTSIDE RECORDS SUMMARY | 2024-02-06 12:41 | XMS_ITS | Continuity of Care Document ---
Author Organization [facility] Address [address] [place] [address]- Care Team Providers Care Asp Net Developer Name Role Phone Annette Castillo NP Primary Care Physician [facility] Date[facility]s): 08/09/21 - 09/08/21 [facility] [address] [place] [address]- Allergies, Adverse Reactions, Alerts Substance Reaction Severity Status morphine 1 Persistent Moderate Active penicillins Active 1nausea vomiting Immunizations Given and Recorded Vaccine Date Status Refusal Reason SARS-CoV-2 (COVID-19) mRNA BNT-162b2 vac 03/30/21 Recorded SARS-CoV-2 (COVID-19) mRNA BNT-162b2 vac 1 08/20/20 Recorded SARS-CoV-2 (COVID-19) mRNA BNT-162b2 vac 07/30/20 Recorded influenza virus vaccine, inactivated 12/16/20 Mango rded [...] [facility] 4Admin Note: high dose done at [facility] 5Admin Note: immun records 6Admin Note: immun records 7Admin Note: immun records 8Admin Note: immun records 9Admin Note: immun records 10Admin Note: immun records 11Admin Note: immun records Medications Aspirin Low Dose 81 mg oral delayed release tablet 1 tablet, By Mouth, Daily, # 30 tablet, 2 Refills, [facility] ST[facility] 77270, 157.5, cm, 03/13/21 9:05:00 EST, Height, 76.3, kg, 03/12/20 13:32:00 EST, Dry Weight Start Date: 06/26/21 Status: Ordered baclofen 10 mg oral tablet 1, tablet, By Mouth, Daily at bedtime, # 30 tablet, Refills 2, Route to Pharmacy Electronically, [facility], 157.4, cm, 06/29/21 7:08:00 EST, Height, 77.6, kg, 06/29/21 7:08:00 EST, Dry Weight Start Date: 07/26/21 Status: Ordered calcium (as carbonate)-vitamin D 500 mg-400 intl units oral tablet 1 tablet, By Mouth, 2 times a day, # 180 tablet, 3 Refills, Maintenance, 11/09/20 8:38:00 EDT, Tablet, [id number], 1 tablet By Mouth 2 times a [...] See Instructions, TAKE 1 TABLET BY MOUTH IN THE MORNING AND TAKE 1 TABLET AT BEDTIME, # 60 tablet, 2 Refills, 06/20/21 11:03:00 EST, [facility], 157.5, cm, 03/13/21 9:05:00 EST, Height, 76.3,kg, 03/12/20 13:32:00 EST, Dry Weight Start Date: 06/20/21 Status: Ordered levothyroxine 0.088 mg oral tablet 1 tablet, By Mouth, Daily, # 30 tablet, 5 Refills, [facility], 157.5, cm, 03/13/21 9:05:00 EST, Height, 76.3, kg, 03/12/20 13:32:00 EST, Dry Weight Start Date: 05/25/21 Status: Ordered Multivitamin With Minerals By Mouth, 0 Refills, Maintenance Start Date: 04/02/11 Status: Ordered Paxlovid 150 mg-100 mg oral tablet See Instructions, 3 tablets BID, for 5 days, # 30 tablet, 0 Refills, Maintenance, 08/11/21 12:44:00EDT, [facility], Partial fill upon patient request if the prescription is for a schedule IIopioid drug., 3 tablets BID, for 5 days, 157.4, cm,... Start Date: 08/11/21 Status: Ordered Paxlovid 150 mg-100 mg oral tablet See Instructions, 2 tablets of nirmatrevir and 1 tablet Ritovir for 5 days, # 15 tablet, 0 Refills,Maintenance, 08/10/21 9:50:00 EDT, [facility], Partial fill upon patient request if the prescription is for a schedule II opioid drug., 2 table... Start Date: 08/10/21 Status: Ordered pramipexole 1 mg oral tablet 1.5 tablet, By Mouth, 3 times a day, # 135 tablet, 5 Refills, [facility], 157.4, cm, 08/10/21 9:43:00 EDT, Height, 77.6, kg, 06/29/21 7:08:00 EST, Dry Weight Start Date: 08/24/21 Status: Ordered Protonix 40 mg oral delayed [...] tablet, Refills 5, Route to Pharmacy Electronically, [facility], 157.4, cm, 06/29/21 7:08:00 EST, Height, 77.6, kg, 06/29/21 7:08:00 EST, Dry Weight Start Date: 07/25/21 Status: Ordered Problem List Condition Effective Dates [...]
--- OUTSIDE RECORDS SUMMARY | 2024-02-06 12:41 | XMS_ITS | Continuity of Care Document ---
Author Organization [facility] Address [address] [place] [address]- Care Team Providers Care Tar Heater Name Role Phone Annette Castillo NP Primary Care Physician [phone] [facility] Date[facility]s): 08/09/22 - 09/08/22 [facility] [address] [place] [address]- Allergies, Adverse Reactions, Alerts Substance Reaction Severity [...] tetanus/diphtheria/pertussis, acel(Tdap) 12 09/29/07 Given 1Result Comment: [facility] [id number] 2Location History: pharmacy 3Location History: [facility] 4Admin Note: high dose done at [facility] 5Admin Note: immun records 6Admin Note: immun records 7Result Comment: [facility] 8Admin Note: immun records 9Admin Note: immun records 10Admin Note: immun records 11Admin Note: immun records 12Admin Note: immun records Medications Aspirin Low Dose 81 mg oral delayed release tablet 1 tablet, By Mouth, Daily, # 30 tablet, 2 Refills, Maintenance, 06/26/22 8:57:00 EST, [facility], 157.4, cm, 02/05/22 10:42:00 EDT, Height, 77.6, kg, 06/29/21 7:08:00 EST, Dry Weight Start Date: 06/26/22 Status: Ordered baclofen 10 mg oral tablet 1, tablet, By Mouth, Daily at bedtime, # 30 tablet, Refills 2, Maintenance, 07/26/22 7:37:00 EDT, Route to Pharmacy Electronically, [facility] 7[facility], 157.4, cm, 02/05/22 10:42:00 EDT, Height, 77.6, kg, 06/29/21 7:08:00 EST, Dry Weight Start Date: 07/26/22 Status: Ordered calcium (as carbonate)-vitamin D 500 mg-400 intl units oral tablet 1 tablet, By Mouth, 2 times a day, # 180 tablet, 3 Refills, Maintenance, 11/09/20 8:38:00 EDT, Tablet, [facility] #[id number], 1 tablet By Mouth 2 times a [...] Refills, Maintenance, 08/15/22 9:41:00 EDT, [facility], 157.4, cm, 02/05/22 10:42:00 EDT, Height, 77.6, kg, 06/29/21 7:08:00 EST, Dry Weight Start Date: 08/15/22 Status: Ordered levothyroxine 0.088 mg oral tablet 1 tablet, By Mouth, Daily, for 90 days, # 90 tablet, 3 Refills, Physician Stop 04/29/23 8:23:00 EST, 05/04/22 8:23:00 EST, [facility], LABS NEEDED FOR FURTHER REFILLS, 157.4, cm, [...] Refills, Maintenance, 02/26/22 15:10:00 EDT, [facility], 157.4, cm, 02/05/22 10:42:00 EDT, Height, 77.6, [...] EDT, Route to Pharmacy Electronically, [facility], 157.4, cm, 02/05/22 10:42:00 EDT, Height, 77.6, [...] Care Team Personnel Name: Angie Pope Position: [facility] Onco RN Member Role: Primary Care Nurse Name: Olga Brooke RN Position: [facility] RN Member Role: Primary Care Nurse Name: Annette Castillo NP Position: [facility] PCO Associate Professional Member Role: PCP Address: Address: [address] [place] [address] Name: Grady Ortiz Position: [facility] Outreach Member Role: Lifetime Consulting Physician Address: Address: [address] [place] [address] [facility] [address] [place] [address]- Care Team Related Persons Name: ANUEL PARKER Address: home [address] [place] [address] Name: KELLEE PEÑA Address: [address] [place] [address]
--- OUTSIDE RECORDS SUMMARY | 2024-02-06 12:41 | XMS_ITS | Continuity of Care Document ---
Author Organization [facility] Address [address] [place] [address]- Care Team Providers Care Clinical Genetics Laboratory Chief Name Role Phone Swapnil SANTAMARIA, Annette Primary Care Physician [facility] Date[facility]s): 11/12/19 - 12/12/19 [facility] [address] [place] [address] [facility] Attending Physician: Miles Olea Admitting Physician: AdmtrMiles [...] EDT, Route to Pharmacy Electronically, [facility][id number], 158, cm, 11/12/19 15:02:00 EDT, Height, 77.2, kg, 05/20/19 20:41:00 EST, Dry Weight Start Date: 12/11/19 Stop Date: 03/10/20 Status: Ordered baclofen 10 mg oral tablet 10 mg, 1, tablet, By Mouth, Daily at bedtime, for 90 days, # 90 tablet, Refills 0, Tot. Refills 0, Physician Stop 03/10/20 8:40:00 EST, 12/11/19 8:40:00 EDT, Route to Pharmacy Electronically, [facility] #[id number], 158, cm, 11/12/19 15:02:00 EDT, He[facility]... Start Date: 12/11/19 Stop Date: 03/10/20 Status: Ordered calcium (as carbonate)-vitamin D 500 mg-400 intl units oral tablet 1 tablet, By Mouth, 2 times a day, # 180 tablet, 1 Refills, Maintenance, 10/27/19 9:07:00 EDT, Tablet, [facility] #[id number], 1 tablet By Mouth 2 times a day, 158, cm, 09/30/19 10:10:00 EDT, Height, 77.2, kg, 05/20/19 20:41:00 EST, Dry Weight Start Date: 10/27/19 Status: Ordered CeleBREX 200 mg oral capsule 1 capsule = 200 mg, By Mouth, 2 times a day, Take with food to avoid upset stomach, # 180 capsule, 0 Refills, Maintenance, 10/19/19 12:33:00 EDT, Capsule, [facility] #17794, 158, cm, 09/30/19 10:10:00 EDT, Height, 77.2, [...] 180 tablet, 1 Refills, Maintenance, [facility], 158, cm, 07/30/19 12:49:00 EDT, Height, 77.2, kg, 05/20/19 20:41:00 EST, Dry Weight Start Date: 08/12/19 Status: Ordered lactulose 10 gm/15 ml oral syrup 15 mL = 10 Gm, By Mouth, 2 times a day, PRN as needed for constipation, # 480 mL, 1 Refills, Maintenance, 07/27/19 12:04:00 EDT, Syrup, [facility]/pharmacy #0993, 15 mL By Mouth 2 times a day,PRN:as needed for constipation, 157, cm, 07/23/19 9:32:00 EDT, Hei... Start Date: 07/27/19 Status: Ordered levothyroxine 0.088 mg oral tablet 1 tablet = 88 mcg, By Mouth, Daily, # 90 tablet, 1 Refills, Soft Stop, 09/28/19 11:17:00 EDT, [facility]/pharmacy #0993, 158, cm, 09/08/19 10:27:00 EDT, Height, 77.2, kg, 05/20/19 20:41:00 EST, Dry Weight Start Date: 09/28/19 Stop Date: 03/26/20 Status: Ordered Mirapex 1 mg oral tablet 1.5 tablet = 1.5 mg, By Mouth, 3 times a day, # 135 tablet, 4 Refills, Maintenance, 12/04/19 9:39:00 EDT, [facility]/pharmacy #0993, 158, cm, 11/12/19 15:02:00 EDT, Height, 77.2, kg, 05/20/19 20:41:00 EST, Dry Weight Start Date: 12/04/19 Stop Date: 05/02/20 Status: Ordered Multivitamin With Minerals By Mouth, 0 Refills, Maintenance Start Date: 04/02/11 Status: Ordered traZODone 100 mg oral tablet 100 mg, 1, tablet, By Mouth, Daily at bedtime, # 90 tablet, Refills 1, Tot. Refills 1, Soft Stop, 08/12/19 8:23:00 EDT, Route to Pharmacy Electronically, [facility]/pharmacy #0993, 158, cm, 07/30/19 12:49:00 EDT, Height, [...]
--- OUTSIDE RECORDS SUMMARY | 2024-02-06 12:41 | XMS_ITS | Continuity of Care Document ---
Author Organization [facility] Adult Address [address] [place] [address]- Care Team Providers Care Outdoor Pursuits Instructor Name Role Phone Cecilia SANTAMARIA, Leonarda Primary Care Physician [place] [facility] [place]): [place]23[place]19 - 06/30/19 [facility] [address] [place] [address]- [facility] Encounter Diagnosis Left ankle pain(Discharge Diagnosis) - 06/23/19 Attending Physician: Not on Staff, Attending MD [...] Maintenance, 03/04/19 15:42:41 EST,Route to Pharmacy Electronically, [id number], [facility]/pharmacy #0993 Start Date: 03/04/19 Stop Date: 10/30/19 Status: Ordered baclofen 10 mg oral tablet 10 mg, 1, tablet, By Mouth, Daily at bedtime, # 30 tablet, Refills 2, Tot. Refills 2, Soft Stop, 04/08/19 11:08:07 EST, Route to Pharmacy Electronically, [id number], [facility]/pharmacy #0993, 157, cm, 03/04/19 15:05:00 EST, Height,... Start Date: 04/08/19 Status: Ordered calcium (as carbonate)-vitamin D 500 mg-400 intl units oral tablet 1 tablet, By Mouth, 2 times a day, # 60 tablet, 5 Refills, Maintenance, 05/26/19 13:08:00 EST, Tablet, [facility], 1 tablet By Mouth 2 times a day, 157, cm, 05/07/19 16:41:00 EST, Height, 77.2, kg, 05/20/19 20:41:00 EST, Dry Weight Start Date: 05/26/19 Status: Ordered Compression Stockings See Instructions, # [...] 05/26/19 17:59:00 EST, Route to Pharmacy Electronically, [facility] 57160, 157, cm, 05/07/19 1... Start Date: 05/26/19 [...] 5 Refills, Maintenance, 05/08/19 15:54:00 EST, [facility]/pharmacy #0993, 157, cm, 05/07/19 16:41:00 EST, [...] 13:56:00 EST, Route to Pharmacy Electronically, [facility]/pharmacy #0993, 157, cm, 05/07/19 16:41:00 EST, [...] days. 3Dexa 2014 osteopenia 4last dexa 2012 Diagnosis Diagnosis Type Effective Dates Health Status Cl inical Service Informant Left ankle pain Discharge Diagnosis 06/23/19 Vital Signs Most recent to oldest [Reference Range]: 1 Height 157 cm (06/23/19 9:54 AM) Weight 77.6 kg (06/23/19 9:54 AM) Oxygen Saturation [94-100 %] 97 % (06/23/19 9:54 AM) Pulse Rate [55-90 bpm] 75 bpm (06/23/19 9:54 AM) Body Mass Index [18.5-24.99] 31.48 *>HHI* (06/23/19 9:54 AM) Blood Pressure [90-138/55-84 mm Hg] 112/ 70mm Hg (06/23/19 9:54 AM) Mode of Delivery (Oxygen) Room air (06/23/19 9:54 AM) Blood pressure sites Arm, left (06/23/19 9:54 AM) Weight Obtained Via Standing scale (06/23/19 9:54 AM) Social History Social History Type Response Smoking Status Former smoker; Type: Cigarettes; Tobacco use times per day: quit smoking 30 yrs ago; entered on: 06/25/15 Sex
--- OUTSIDE RECORDS SUMMARY | 2024-02-06 12:41 | XMS_ITS | Continuity of Care Document ---
Author Organization [facility] Adult Address [address] [place] [address]- Care Team Providers Care Porcelain Enamel Sprayer Name Role Phone Annette Castillo NP Primary Care Physician [facility] Date[facility]): 09/30/20 - 10/30/20 [facility] Adult [address] [place] [address]- Allergies, Adverse Reactions, Alerts Substance Reaction Severity [...] Refills, Maintenance, 04/08/20 8:32:00 EST, [facility], 164, cm, 03/17/20 16:43:00 EST, Height, 76.3, kg, 03/12/20 13:32:00 EST, Dry Weight Start Date: 04/08/20 Status: Ordered baclofen 10 mg oral tablet 10 mg, 1, tablet, By Mouth, Daily at bedtime, TAKE 1 TABLET BY MOUTH EVERYDAY AT BEDTIME, # 90 tablet, Refills 0, Tot. Refills 0, Maintenance, 08/05/20 12:52:00 EDT, Route to Pharmacy Electronically,[id number], Partial fill upon patient re... Start Date: 08/05/20 Status: Ordered calcium (as carbonate)-vitamin D 500 mg-400 intl units oral tablet 1 tablet, By Mouth, 2 times a day, # 180 tablet, 1 Refills, Maintenance, 05/05/20 16:26:00 EST, Tablet, [facility] #[id number], 1 tablet By Mouth 2 times a day, 164, cm, 03/17/20 16:43:00 EST, Height,76.3, kg, 03/12/20 13:32:00 EST, Dry Weight Start Date: 05/05/20 Status: Ordered CeleBREX 200 mg oral capsule 1 capsule = 200 mg, By Mouth, 2 times a day, Until mail order is delivered, # 28 capsule, 0 Refills, Maintenance, 10/19/19 12:34:00 EDT, Capsule, [facility]/pharmacy #0993, 158, cm, 09/30/19 10:10:00 EDT, Height, [...] 0 Refills, Maintenance, 11/12/19 16:33:00 EDT, Capsule, [facility]/pharmacy #0993, 158, cm, 11/12/19 15:02:00 EDT, Height, [...] tablet, 0 Refills, Maintenance, 09/27/20 14:38:00 EDT, [facility]/pharmacy #0993, 157, cm, 09/07/20 14:26:00 EDT, Height, 76.3, kg, 03/12... Start Date: 09/27/20 Status: Ordered levothyroxine 0.088 mg oral tablet 1 tablet, By Mouth, Daily, # 30 tablet, 2 Refills, Maintenance, 09/09/20 8:28:00 EDT, [facility] #[id number], Rx resent from 09/05, 157, cm, 09/07/20 14:26:00 EDT, Height, 76.3, kg, 03/12/20 13:32:00 EST, Dry Weight Start Date: 09/09/20 Status: Ordered Mirapex 1 mg oral tablet 1.5 tablet = 1.5 mg, By Mouth, 3 times a day, # 135 tablet, 5 Refills, Maintenance, 09/09/20 8:27:00 EDT, [id number], 157, cm, 09/07/20 14:26:00 EDT, Height, 76.3, [...] 11:01:00 EDT, Route to Pharmacy Electronically, [facility][id number], 157, cm, 06/30/20 10:07:00 EST, Height, 76.3, kg, 03/12/20 13:32:00 EST, Dry We... Start Date: 08/05/20 Status: Ordered Zofran 4 mg oral tablet 1 tablet = 4 mg, By Mouth, Every 8 hours, PRN Nausea & Vomiting, # 10 tablet, 0 Refills, Maintenance, 03/13/20 9:49:00 EST, Tablet, [facility], Partial fill upon patient request, [...]
--- OUTSIDE RECORDS SUMMARY | 2024-02-06 12:41 | XMS_ITS | Continuity of Care Document ---
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 Name Role Phone Annette Castillo NP Primary Care Physician [facility] Date[facility]s): 03/08/23 - 04/07/23 [facility] Adult [address] [place] [address]- Allergies, Adverse Reactions, Alerts Substance Reaction Severity [...] virus vaccine, inactivated 6 01/24/12 Gi shakira [id number] 12y+ bivalent booster vax 03/02/22 Recorded SARS-CoV-2 [...] tetanus/diphtheria/pertussis, acel(Tdap) 12 09/29/07 Given 1Result Comment: [facility] [id number] 2Location History: pharmacy 3Location History: [facility] 4Admin Note: high dose done at [facility] 5Admin Note: immun records 6Admin Note: immun records 7Result Comment: [facility] 8Admin Note: immun records 9Admin Note: immun records 10Admin Note: immun records 11Admin Note: immun records 12Admin Note: immun records Medications Aspirin Low Dose 81 mg oral delayed release tablet 1 tablet, By Mouth, Daily, # 30 tablet, 5 Refills, Maintenance, 10/16/22 7:11:00 EDT, [facility]/pharmacy #1972, 158, cm, 10/10/22 9:38:00 EDT, Height, 80.8, kg, 10/04/22 20:27:00 EDT, Dry Weight Start Date: 10/16/22 Status: Ordered baclofen 10 mg oral tablet 1, tablet, By Mouth, Daily at bedtime, # 90 tablet, Refills 1, Tot. Refills 1, Maintenance, 02/18/23 10:44:00 EDT, Route to Pharmacy Electronically, [facility]/pharmacy #1972, 156.5, cm, 02/18/23 10:06:00 [...] 3 Refills, Maintenance, 10/16/22 17:51:00 EDT, Tablet, [facility]/pharmacy #1972, 1 tablet By Mouth 2 times a day,x90 days, 158, cm, 10/10/22 9:38:00 EDT, Height, 80.8, kg, 10/04/22 20:27:00 EDT, Dry Weight Start Date: 10/16/22 Stop Date: 10/11/23 Status: Ordered gabapentin 600 mg oral tablet See Instructions, TAKE 1 TABLET BY MOUTH EVERY MORNING AND 1 TABLET EVERY NIGHT AT BEDTIME, # 60 tablet, 0 Refills, Maintenance, 03/12/23 15:33:00 EST, [facility]/pharmacy #1972, 156.5, cm, 02/18/23 10:06:00 EDT, Height, 77, kg, 02/04/23 0:27:00 EDT, Dry Weight Start Date: 03/12/23 Status: Ordered levothyroxine 0.088 mg oral tablet See Instructions, TAKE 1 TABLET BY MOUTH EVERY DAY, # 90 tablet, 1 Refills, Maintenance, 01/04/23 7:17:00 EDT, [facility], 158, cm, 10/10/22 9:38:00 EDT, Height, 80.8, kg, 10/04/22 20:27:00 EDT,Dry Weight Start Date: 01/04/23 Status: Ordered meloxicam 15 mg oral tablet 1 tablet = 15 mg, By Mouth, Daily, # 30 tablet, 0 Refills, Maintenance, 02/06/23 15:50:00 EDT, Tablet, [facility]/pharmacy #1972, Partial fill upon patient [...] 03/14/23 15:20:00 EST, Route to Pharmacy Electronically, [facility]/pharmacy #1972, 156.5, cm, 02/18/23 10:06:00 [...] Care Team Personnel Name: Angie Pope Position: [facility] Onco RN Member Role: Primary Care Nurse Name: Julissa Patel RN Position: [facility] RN Member Role: Primary Care Nurse Name: Olga Brooke RN Position: [facility] RN Member Role: Primary Care Nurse Name: Annette Castillo NP Position: [facility] PCO Associate Professional Member Role: PCP Address: Address: [address] [place] [address]- Name: Grady Ortiz Position: [facility] Outreach Member Role: Lifetime Consulting Physician Address: Address: [address] [place] [address]- Care Team Related Persons Name: KELLEE BARRAGAN Name: ANUEL PARKER Address: home [address] [place] [address] Name: ANUEL GU Address: home [address] [place] [address] Name: KELLEE PEÑA Address: home [address] [place] [address]
--- OUTSIDE RECORDS SUMMARY | 2024-02-06 12:41 | XMS_ITS | Continuity of Care Document ---
Author Organization [facility] Address Unknown Care Team Providers Care Biology Laboratory Assistant Name Role Phone Annette Castillo NP Primary Care Physician [facility] Date[facility]s): 12/14/20 - 01/13/21 [facility] Attending Physician: AdmMiles glez Admitting Physician: Admtr, Miles Referring Physician: Admtr, Ar8 Allergies, Adverse Reactions, Alerts Substance Reaction Severity [...] 09/29/07 Given 1Location History: pharmacy 2Location History: [facility] 3Admin Note: high dose done at [facility] 4Admin Note: immun records 5Admin Note: immun records [facility] 7Admin Note: immun records 8Admin Note: immun records 9Admin Note: immun records 10Admin Note: immun records 11Admin Note: immun records Medications aspirin 81 mg oral delayed release tablet = 81 mg, By Mouth, Daily, # 30 tablet, 3 Refills, Maintenance, 11/07/20 15:07:00 EDT, [facility] #[id number], 157, cm, 09/07/20 14:26:00 EDT, Height, 76.3, kg, 03/12/20 13:32:00 EST, Dry Weight Start Date: 11/07/20 Status: Ordered baclofen 10 mg oral tablet 10 mg, 1, tablet, By Mouth, Daily at bedtime, TAKE 1 TABLET BY MOUTH EVERYDAY AT BEDTIME, # 90 tablet, Refills 0, Tot. Refills 0, Maintenance, 11/09/20 8:38:00 EDT, Route to Pharmacy Electronically, [facility] #[id number], Partial fill upon patient req... Start Date: 11/09/20 Stop Date: 02/07/21 Status: Ordered calcium (as carbonate)-vitamin D 500 mg-400 intl units oral tablet 1 tablet, By Mouth, 2 times a day, # 180 tablet, 3 Refills, Maintenance, 11/09/20 8:38:00 EDT, Tablet, [id number], 1 tablet By Mouth 2 times a [...] IN [place], # 180 tablet, 0 Refills, [facility], 157.5, cm, 11/09/20 8:24:00 EDT, Height, 76.3, kg, 03/12/20 13:32:00 EST, Dry Weight Start Date: 12/30/20 Status: Ordered ipratropium nasal 21 mcg/inh spray See Instructions, SPRAY 2 SPRAYS INTO BOTH NOSTRILS 2 TIMES A DAY FOR 30 DAYS, # 30 Unknown, 0 Refills, [facility], 30, SPRAY 2 SPRAYS INTO BOTH NOSTRILS 2 TIMES A DAY FOR 30 DAYS, 157.5, cm, 11/09/20 8:24:00 EDT, Height, 76.3, kg, 03/12/20 13:32... Start Date: 12/30/20 Status: Ordered levothyroxine 0.088 mg oral tablet 1 tablet, By Mouth, Daily, # 30 tablet, 5 Refills, Maintenance, 12/01/20 11:20:00 EDT, [facility], 157.5, cm, 11/09/20 8:24:00 EDT, Height, 76.3, kg, 03/12/20 13:32:00 EST, Dry Weight Start Date: 12/01/20 Status: Ordered Mirapex 1 mg oral tablet 1.5 tablet = 1.5 mg, By Mouth, 3 times a day, # 135 tablet, 5 Refills, Maintenance, 09/09/20 8:27:00 EDT, [id number], 157, cm, 09/07/20 14:26:00 EDT, Height, 76.3, [...] 11:01:00 EDT, Route to Pharmacy Electronically, [facility] #35722, 157, cm, 06/30/20 10:07:00 EST, Height, 76.3, kg, 03/12/20 13:32:00 EST, Dry We... Start Date: 08/05/20 Status: Ordered Zofran 4 mg oral tablet 1 tablet = 4 mg, By Mouth, Every 8 hours, PRN Nausea & Vomiting, # 10 tablet, 0 Refills, Maintenance, 03/13/20 9:49:00 EST, Tablet, [facility], Partial fill upon patient [...]
--- OUTSIDE RECORDS SUMMARY | 2024-02-06 12:41 | XMS_ITS | Continuity of Care Document ---
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 4Admin Note: high dose done at [facility] 5Admin Note: immun records 6Admin Note: immun records 7Result Comment: [facility] 8Admin Note: immun records 9Admin Note: immun records 10Admin Note: immun records 11Admin Note: immun records 12Admin Note: immun records Medications Aspirin Low Dose 81 mg oral delayed release tablet 1 tablet, By Mouth, Daily, # 30 tablet, 2 Refills, Maintenance, 03/28/22 14:30:00 EST, [facility], 157.4, cm, 02/05/22 10:42:00 EDT, Height, 77.6, kg, 06/29/21 7:08:00 EST, Dry Weight Start Date: 03/28/22 Status: Ordered baclofen 10 mg oral tablet 1, tablet, By Mouth, Daily at bedtime, # 30 tablet, Refills 2, Maintenance, 04/27/22 7:15:00 EST, Route to Pharmacy Electronically, [facility], 157.4, cm, 02/05/22 10:42:00 EDT, Height, 77.6, kg, 06/29/21 7:08:00 EST, Dry Weight Start Date: 04/27/22 Status: Ordered calcium (as carbonate)-vitamin D 500 mg-400 intl units oral tablet 1 tablet, By Mouth, 2 times a day, # 180 tablet, 3 Refills, Maintenance, 11/09/20 8:38:00 EDT, Tablet, [facility] #[id number], 1 tablet By Mouth 2 times a [...] BEDTIME, # 60 tablet, 0 Refills, Maintenance, 05/28/22 12:50:00 EST, [facility], 157.4, cm, 02/05/22 10:42:00 EDT, Height, 77.6, kg, 06/29/21 7:08:00 EST, Dry W... Start Date: 05/28/22 Status: Ordered levothyroxine 0.088 mg oral tablet 1 tablet, By Mouth, Daily, for 90 days, # 90 tablet, 3 Refills, Physician Stop 04/29/23 8:23:00 EST, 05/04/22 8:23:00 EST, [id number], LABS NEEDED FOR FURTHER REFILLS, 157.4, cm, [...] Refills, Maintenance, 02/26/22 15:10:00 EDT, [facility], 157.4, cm, 02/05/22 10:42:00 EDT, Height, 77.6, [...] at bedtime, # 30 tablet, Refills 1, Maintenance, 05/27/22 14:05:00 EST, Route to Pharmacy Electronically, [facility], 157.4, cm, 02/05/22 10:42:00 EDT, Height, 77.6, kg, 06/29/21 7:08:00 EST, Dry Weight Start Date: 05/27/22 Status: Ordered Problem List Condition Confirmation Course [...] Care Team Personnel Name: Angie Pope Position: [facility] Onco RN Member Role: Primary Care Nurse Name: Olga Brooke RN Position: [facility] RN Member Role: Primary Care Nurse Name: Annette Castillo NP Position: [facility] PCO Associate Professional Member Role: PCP Address: Address: [address] [place] [address]- Name: Grady Ortiz Position: [facility] Outreach Member Role: Lifetime Consulting Physician Address: Address: [address] [place] [address]- Care Team Related Persons Name: ANUEL PARKER Address: [address] [place] [address] Name: KELLEE PEÑA Address: [address] [place] [address]
--- OUTSIDE RECORDS SUMMARY | 2024-02-06 12:41 | XMS_ITS | Continuity of Care Document ---
Author Organization [facility] Adult Address [address] [place] [address]- Care Team Providers Care Clinical Nursing Director Name Role Phone Cecilia SANTAMARIA, Leonarda Primary Care Physician Encounter [facility] Date(s): 07/27/19 - 08/03/19 [facility] [address] [place] [address]- [facility] Attending Physician: Nitin Peres MD Allergies, Adverse Reactions, Alerts Substance Reaction [...] Maintenance, 03/04/19 15:42:41 EST,Route to Pharmacy Electronically, [id number], [facility]/pharmacy #[id number] Start Date: 03/04/19 Stop Date: 10/30/19 Status: Ordered baclofen 10 mg oral tablet See Instructions, TAKE 1 TABLET BY MOUTH EVERYDAY AT BEDTIME, # 90 tablet, Refills 0, Maintenance, Instructions Replace Required Details, Route to Pharmacy Electronically, [facility] ST[facility] 67096, 157, cm, 06/23/19 9:54:00 EST, Height, 77.2, kg, 05/20/19 20:4... Start Date: 07/01/19 Status: Ordered calcium (as carbonate)-vitamin D 500 mg-400 intl units oral tablet 1 tablet, By Mouth, 2 times a day, # 60 tablet, 5 Refills, Maintenance, 05/26/19 13:08:00 EST, Tablet, [facility]/pharmacy #0993, 1 tablet By Mouth 2 [...] 1 Refills, Maintenance, 08/03/19 9:15:00 EDT, Capsule, [facility]/pharmacy #0993, 158, cm, 07/30/19 12:49:00 EDT, [...] 05/26/19 17:59:00 EST, Route to Pharmacy Electronically, [facility] ST[facility] 61004, 157, cm, 05/07/19 1... Start Date: 05/26/19 Status: Ordered lactulose 10 gm/15 ml oral syrup 15 mL = 10 Gm, By Mouth, 2 times a day, PRN as needed for constipation, # 480 mL, 1 Refills, Maintenance, 07/27/19 12:04:00 EDT, Syrup, [facility]/pharmacy #0993, 15 mL By Mouth 2 [...] tablet, 5 Refills, Maintenance, 05/08/19 15:54:00 EST, [facility]/pharmacy #0993, 157, cm, 05/07/19 16:41:00 EST, [...] 08/06/19 13:16:00 EDT, 07/30/19 13:16:00 EDT, Tablet, [facility]/pharmacy #0993, 158, cm, 07/30/19 12:49:00 EDT, Height, 77.2, kg,05/20/19 20:41:00 EST, Dry Weight Start Date: 07/30/19 Stop Date: 08/06/19 Status: Ordered traZODone 100 mg oral tablet 100 mg, 1, tablet, By Mouth, Daily at bedtime, # 30 tablet, Refills 2, Tot. Refills 2, Soft Stop, 05/12/19 13:56:00 EST, Route to Pharmacy Electronically, [facility]/pharmacy #0993, 157, cm, 05/07/19 16:41:00 EST, [...]
--- OUTSIDE RECORDS SUMMARY | 2024-02-06 12:41 | XMS_ITS | Continuity of Care Document ---
Author Organization [facility] Adult Address [address] [place] [address]- Care Team Providers Care Editing Clerk Name Role Phone Annette Castillo NP Primary Care Physician [facility] Date[facility]s): 05/07/22 - 06/06/22 [facility] Adult [address] [place] [address]- Allergies, Adverse Reactions, Alerts Substance Reaction Severity [...] 09/29/07 Given 1Result Comment: [facility] [id number] 2Location History: pharmacy 3Location History: [facility] 4Admin Note: high dose done at [facility] 5Admin Note: immun records 6Admin Note: immun records 7Result Comment: [facility] 8Admin Note: immun records 9Admin Note: immun records 10Admin Note: immun records 11Admin Note: immun records 12Admin Note: immun records Medications Aspirin Low Dose 81 mg oral delayed release tablet 1 tablet, By Mouth, Daily, # 30 tablet, 2 Refills, Maintenance, 03/28/22 14:30:00 EST, [facility], 157.4, cm, 02/05/22 10:42:00 EDT, Height, 77.6, kg, 06/29/21 7:08:00 EST, Dry Weight Start Date: 03/28/22 Status: Ordered baclofen 10 mg oral tablet 1, tablet, By Mouth, Daily at bedtime, # 30 tablet, Refills 2, Maintenance, 04/27/22 7:15:00 EST, Route to Pharmacy Electronically, [facility] 47[facility], 157.4, cm, 02/05/22 10:42:00 EDT, Height, 77.6, kg, 06/29/21 7:08:00 EST, Dry Weight Start Date: 04/27/22 Status: Ordered calcium (as carbonate)-vitamin D 500 mg-400 intl units oral tablet 1 tablet, By Mouth, 2 times a day, # 180 tablet, 3 Refills, Maintenance, 11/09/20 8:38:00 EDT, Tablet, [facility] #[id number], 1 tablet By Mouth 2 times a [...] 8:23:00 EST, 05/04/22 8:23:00 EST, [facility], LABS NEEDED FOR FURTHER REFILLS, 157.4, cm, [...] Refills, Maintenance, 02/26/22 15:10:00 EDT, [facility], 157.4, cm, 02/05/22 10:42:00 EDT, Height, 77.6, [...] 05/27/22 14:05:00 EST, Route to Pharmacy Electronically, [facility], 157.4, cm, 02/05/22 10:42:00 EDT, Height, 77.6, [...] Care Team Personnel Name: Angie Pope Position: [facility] Onco RN Member Role: Primary Care Nurse Name: Olga Brooke RN Position: [facility] RN Member Role: Primary Care Nurse Name: Annette Castillo NP Position: [facility] PCO Associate Professional Member Role: PCP Address: Address: [address] [place] [address]- Name: Grady Ortiz Position: [facility] Outreach Member Role: Lifetime Consulting Physician Address: Address: [address] [place] [address], [address] [address]- Care Team Related Persons Name: ANUEL PARKER Address: home [address] [place] [address] Name: KELLEE PEÑA Address: [address] [place] [address]
--- OUTSIDE RECORDS SUMMARY | 2024-02-06 12:41 | XMS_ITS | Continuity of Care Document ---
Author Organization [facility] Adult Address [address] [place] [address]- Care Team Providers Care Oral And Maxillofacial Pathologist Name Role Phone Annette Castillo NP Primary Care Physician [facility] Date[facility]s): 05/20/23 - 06/19/23 [facility] [address] [place] [address]- Allergies, Adverse Reactions, Alerts Substance Reaction Severity Status morphine 1 Persistent Moderate Active penicillins Active 1nausea vomiting Immunizations Given and Recorded Vaccine Date Status Refusal Reason SARS-CoV-2(COVID-19)mRNA-LNP vac([id number]) 04/17/23 Recorded influenza virus vaccine, inactivated 12/27/22 [...] virus vaccine, inactivated 6 01/24/12 Gi [facility] [id number] 12y+ bivalent booster vax 03/02/22 Recorded SARS-CoV-2 [...] tetanus/diphtheria/pertussis, acel(Tdap) 12 09/29/07 Given 1Result Comment: [facility] [id number] 2Location History: pharmacy 3Location History: [facility] 4[facility] Note[facility] tablet, 1 Refills, Maintenance, 04/26/23 6:56:00 EST, [facility] STORE 25470, 156.5, cm, 02/18/23 10:06:00 EDT, Height, 77, kg, 02/04/23 0:27:00 EDT, Dry Weight Start Date: 04/26/23 Status: Ordered baclofen 10 mg oral tablet 1, tablet, By Mouth, Daily at bedtime, # 90 tablet, Refills 1, Tot. Refills 1, Maintenance, 02/18/23 10:44:00 EDT, Route to Pharmacy Electronically, [facility]/pharmacy #1972, 156.5, cm, 02/18/23 10:06:00 EDT, Height, 77, kg, 02/04/23 0:27:00 EDT, Dry Weight Start Date: 02/18/23 Stop Date: 4/20/24 Status: Ordered BACLOFEN 10 MG TABLET BACLOFEN [...] 3 Refills, Maintenance, 10/16/22 17:51:00 EDT, Tablet, [facility]/pharmacy #1972, 1 tablet By Mouth 2 times a day,x90 days, 158, cm, 10/10/22 9:38:00 EDT, Height, 80.8, kg, 10/04/22 20:27:00 EDT, Dry Weight Start Date: 10/16/22 Stop Date: 10/11/23 Status: Ordered gabapentin 600 mg oral tablet See Instructions, TAKE 1 TABLET BY MOUTH EVERY MORNING AND 1 TABLET EVERY NIGHT AT BEDTIME, # 60 tablet, 0 Refills, Maintenance, 05/21/23 8:34:00 EST, [facility], 156.5, cm, 02/18/23 10:06:00EDT, Height, 77, kg, 02/04/23 0:27:00 EDT, Dry Weight Start Date: 05/21/23 Status: Ordered levothyroxine 0.088 mg oral tablet See Instructions, TAKE 1 TABLET BY MOUTH EVERY DAY, # 90 tablet, 1 Refills, Maintenance, 01/04/23 7:17:00 EDT, [facility], 158, cm, 10/10/22 9:38:00 EDT, Height, 80.8, kg, 10/04/22 20:27:00 EDT,Dry Weight Start Date: 01/04/23 Status: Ordered meloxicam 15 mg oral tablet 1 tablet = 15 mg, By Mouth, Daily, # 30 tablet, 0 Refills, Maintenance, 02/06/23 15:50:00 EDT, Tablet, [facility]/pharmacy #1972, Partial fill upon patient request [...] 03/14/23 15:20:00 EST, [facility] to [facility], [facility], 156.5, cm, 02/18/23 10:06:00 EDT, [...] Care Team Personnel Name: Angie Pope Position: [facility] Onco RN Member Role: Primary Care Nurse Name: Julissa Patel RN Position: [facility] RN Member Role: Primary Care Nurse Name: Olga Brooke RN Position: [facility] RN Member Role: Primary Care Nurse Name: Annette Castillo NP Position: [facility] PCO Associate Professional Member Role: PCP Address: Address: [address] [place] [address]- Name: Grady Ortiz Position: [facility] Outreach Member Role: Lifetime Consulting Physician Address: Address: [address] [place] [id number]- Care Team Related Persons Name: KELLEE BARRAGAN Name: ANUEL PARKER Address: [address] [place] [address] Name: ANUEL GU Address: [address] [place] [address] Name: KELLEE PEÑA Address: [address] [place] [address]
--- OUTSIDE RECORDS SUMMARY | 2024-02-06 12:42 | XMS_ITS | Continuity of Care Document ---
Author Organization [facility] Adult Address [address] [place] [address]- Care Team Providers Care Obedience Trainer Name Role Phone Annette Castillo NP Primary Care Physician [facility]): 03/27/21 - 04/26/21 [facility] Adult [address] [place] [address]- Allergies, Adverse Reactions, Alerts Substance Reaction Severity [...] [facility] 4Admin Note: high dose done at [facility] 5Admin Note: immun records 6Admin Note: immun records 7Admin Note: immun records 8Admin Note: immun records 9Admin Note: immun records 10Admin Note: immun records 11Admin Note: immun records Medications Aspirin Low Dose 81 mg oral delayed release tablet 1 tablet, By Mouth, Daily, # 30 tablet, 3 Refills, [facility] STORE [id number], 157.5, cm, 11/09/20 8:24:00 EDT, Height, 76.3, kg, 03/12/20 13:32:00 EST, Dry Weight Start Date: 02/23/21 Status: Ordered baclofen 10 mg oral tablet 1, tablet, By Mouth, Daily at bedtime, # 30 tablet, Refills 2, Route to [facility] Electronically, [facility], 157.5, cm, 11/09/20 8:24:00 EDT, Height, 76.3, kg, 03/12/20 13:32:00 EST, Dry Weight Start Date: 01/25/21 Status: Ordered calcium (as carbonate)-vitamin D 500 mg-400 intl units oral tablet 1 tablet, By Mouth, 2 times a day, # 180 tablet, 3 Refills, Maintenance, 11/09/20 8:38:00 EDT, Tablet, [id number], 1 tablet By Mouth 2 times a [...] 1 TABLET AT BEDTIME. TAKE A 300MG TABLET IN THE MID-AFTERNOON, # 180 tablet, 0 Refills, 03/27/21 14:16:00 EST, 157.5, cm, 03/13/21 9:05:00 EST, Height, 76.3, kg, 03/12/20 13:32:00 EST, Dry Weight Start Date: 03/27/21 Status: Ordered ipratropium nasal 21 mcg/inh spray See Instructions, SPRAY 2 SPRAYS INTO BOTH NOSTRILS 2 TIMES A DAY FOR 90 DAYS, # 3 each, 0 Refills,Physician Stop 02/07/22 10:33:00 EDT, 02/07/21 10:32:00 EDT, [facility]/pharmacy #[id number], SPRAY 2 SPRAYS INTO BOTH [...] 05/12/21 9:23:00 EST, 03/13/21 9:23:00 EST, Syrup, [facility]/pharmacy #[id number], Partial fill upon patient request if the prescript... Start Date: 03/13/21 Stop Date: 05/12/21 Status: Ordered levothyroxine 0.088 mg oral tablet 1 tablet, By Mouth, Daily, # 30 tablet, 5 Refills, Maintenance, 12/01/20 11:20:00 EDT, [facility] STORE 16804, 157.5, cm, 11/09/20 8:24:00 EDT, Height, 76.3, kg, 03/12/20 13:32:00 EST, Dry Weight Start Date: 12/01/20 Status: Ordered Multivitamin With Minerals By Mouth, 0 Refills, Maintenance Start Date: 04/02/11 Status: Ordered NuLYTELY with Flavor Packs oral powder for reconstitution 240 mL, By Mouth, Every 10 minutes, see split prep instructions, # 4,000 mL, 0 Refills, Maintenance, 03/30/21 9:54:00 EST, REC Powder, [facility]/pharmacy #[id number], Partial fill upon patient request if the prescription is for a schedule II opioid drug., 240 mL... Start Date: 03/30/21 Status: Ordered pramipexole 1 mg oral tablet 1.5 tablet, By Mouth, 3 times a day, # 135 tablet, 5 Refills, [facility], 157.5, cm, 11/09/20 8:24:00 EDT, Height, 76.3, [...] tablet, Refills 5, Route to Pharmacy Electronically, [email or web address] STORE 88267, 157.5, cm, 11/09/20 8:24:00 EDT, Height, 76.3, kg, 03/12/20 13:32:00 EST, Dry Weight Start Date: 01/25/21 Status: Ordered Zofran 4 mg oral tablet 1 tablet = 4 mg, By Mouth, Every 8 hours, PRN Nausea & Vomiting, # 10 tablet, 0 Refills, Maintenance, 03/13/20 9:49:00 EST, Tablet, [facility], Partial fill upon [...]
--- OUTSIDE RECORDS SUMMARY | 2024-02-06 12:42 | XMS_ITS | Continuity of Care Document ---
Author Organization [facility] Adult Address [address] [place] [address]- Care Team Providers Care Crime Specialist Name Role Phone Annette Castillo NP Primary Care Physician [phone] [facility]s): 03/15/20 - 04/14/20 [facility] Adult [address] [place] [address]- Allergies, Adverse Reactions, Alerts Substance Reaction Severity [...] Refills, Maintenance, 04/08/20 8:32:00 EST, [facility], 164, cm, 03/17/20 16:43:00 EST, Height, 76.3, kg, 03/12/20 13:32:00 EST, Dry Weight Start Date: 04/08/20 Status: Ordered baclofen 10 mg oral tablet TAKE 1 TABLET BY MOUTH EVERYDAY AT BEDTIME Start Date: 03/12/20 Status: Ordered baclofen 10 mg oral tablet 10 mg, 1, tablet, By Mouth, Daily at bedtime, for 30 days, # 30 tablet, Refills 0, Tot. Refills 0, Physician Stop 05/04/20 15:28:00 EST, 04/04/20 15:28:00 EST, Route to Pharmacy Electronically, [facility] #[id number], 164, cm, 03/17/20 16:43:00 EST, He... Start Date: 04/04/20 Stop Date: 05/04/20 Status: Ordered calcium (as carbonate)-vitamin D 500 mg-400 intl units oral tablet 1 tablet, By Mouth, 2 times a day, # 180 tablet, 1 Refills, Maintenance, 10/27/19 9:07:00 EDT, Tablet, [facility] #[id number], 1 tablet By Mouth 2 times a day, 158, cm, 09/30/19 10:10:00 EDT, Height, 77.2, kg, 05/20/19 20:41:00 EST, Dry Weight Start Date: 10/27/19 Status: Ordered CeleBREX 200 mg oral capsule 1 capsule = 200 mg, By Mouth, 2 times a day, Until mail order is delivered, # 28 capsule, 0 Refills, Maintenance, 10/19/19 12:34:00 EDT, Capsule, [facility]/pharmacy #[id number], 158, cm, 09/30/19 10:10:00 EDT, Height, [...] 0 Refills, Maintenance, 11/12/19 16:33:00 EDT, Capsule, [facility]/pharmacy #[id number], 158, cm, 11/12/19 15:02:00 EDT, Height, [...] IN THEMID-AFTERNOON, # 180 tablet, 0 Refills, 03/02/20 8:56:00 EST, [facility]/pharmacy #[id number], 157.48, cm, 02/04/20 11:41:00 EDT, Height, 77.2, kg, 05/20/19 20:41:0... Start Date: 03/02/20 Status: Ordered levothyroxine 0.088 mg oral tablet 1 tablet = 88 mcg, By Mouth, Daily, # 90 tablet, 1 Refills, Soft Stop, 03/07/20 15:20:00 EST, [facility] #[id number], 157.48, cm, 02/04/20 11:41:00 EDT, Height, 77.2, kg, 05/20/19 20:41:00 EST, Dry Weight Start Date: 03/07/20 Stop Date: 09/03/20 Status: Ordered Mirapex 1 mg oral tablet 1.5 tablet = 1.5 mg, By Mouth, 3 times a day, # 135 tablet, 4 Refills, Maintenance, 12/24/19 9:28:00 EDT, [facility] #[id number], 158, cm, 11/12/19 15:02:00 EDT, Height, 77.2, [...] Refills 1, Tot. Refills 1, Soft Stop, 02/23/20 8:48:00 EDT, Route to Pharmacy Electronically, [facility] #[id number], 157.48, cm, 02/04/20 11:41:00 EDT, Height, 77.2, kg, 05/20/19 20:41:00 EST... Start Date: 02/23/20 Status: Ordered Zofran 4 mg oral tablet 1 tablet = 4 mg, By Mouth, Every 8 hours, PRN Nausea & Vomiting, # 10 tablet, 0 Refills, Maintenance, 03/13/20 9:49:00 EST, Tablet, [facility], Partial fill upon patient [...]
--- OUTSIDE RECORDS SUMMARY | 2024-02-06 12:42 | XMS_ITS | Continuity of Care Document ---
Author Organization [facility] Adult Address [address] [place] [address]- Care Team Providers Care Child Day Care Provider Name Role Phone Annette Castillo NP Primary Care Physician [facility] 05/26/20 - 06/25/20 [facility] Adult [address] [place] [address]- Allergies, Adverse Reactions, Alerts Substance Reaction Severity [...] tablet, 3 Refills, Maintenance, 04/08/20 8:32:00 EST, [facility], 164, cm, 03/17/20 16:43:00 EST, Height, 76.3, kg, 03/12/20 13:32:00 EST, Dry Weight Start Date: 04/08/20 Status: Ordered baclofen 10 mg oral tablet 10 mg, 1, tablet, By Mouth, Daily at bedtime, TAKE 1 TABLET BY MOUTH EVERYDAY AT BEDTIME, # 90 tablet, Refills 0, Tot. Refills 0, Maintenance, 05/24/20 9:11:00 EST, Route to Pharmacy Electronically, [facility] #[id number], Partial fill upon patient req... Start Date: 05/24/20 Status: Ordered calcium (as carbonate)-vitamin D 500 mg-400 intl units oral tablet 1 tablet, By Mouth, 2 times a day, # 180 tablet, 1 Refills, Maintenance, 05/05/20 16:26:00 EST, Tablet, [facility] #[id number], 1 tablet By Mouth 2 times a day, 164, cm, 03/17/20 16:43:00 EST, Height,76.3, kg, 03/12/20 13:32:00 EST, Dry Weight Start Date: 05/05/20 Status: Ordered CeleBREX 200 mg oral capsule 1 capsule = 200 mg, By Mouth, 2 times a day, Until mail order is delivered, # 28 capsule, 0 Refills, Maintenance, 10/19/19 12:34:00 EDT, Capsule, [facility]/pharmacy #[id number], 158, cm, 09/30/19 10:10:00 EDT, [...] 0 Refills, Maintenance, 11/12/19 16:33:00 EDT, Capsule, [facility]/pharmacy #[id number], 158, cm, 11/12/19 15:02:00 EDT, [...] 180 tablet, 0 Refills, 05/30/20 11:17:00 EST, [facility]/pharmacy #[id number], 164, cm, 03/17/20 16:43:00 EST, Height, 76.3, kg, 03/12/20 13:32:00... Start Date: 05/30/20 Status: Ordered levothyroxine 0.088 mg oral tablet 1 tablet = 88 mcg, By Mouth, Daily, # 90 tablet, 1 Refills, Soft Stop, 03/07/20 15:20:00 EST, [facility] #[id number], 157.48, cm, 02/04/20 11:41:00 EDT, Height, 77.2, kg, 05/20/19 20:41:00 EST, Dry Weight Start Date: 03/07/20 Stop Date: 09/03/20 Status: Ordered Mirapex 1 mg oral tablet 1.5 tablet = 1.5 mg, By Mouth, 3 times a day, # 135 tablet, 4 Refills, Maintenance, 12/24/19 9:28:00 EDT, [facility] #[id number], 158, cm, 11/12/19 15:02:00 EDT, Height, 77.2, kg, 05/20/19 20:41:00 EST, Dry Weight Start Date: 12/24/19 Stop Date: 05/22/20 Status: Ordered MoviPrep oral powder for reconstitution 240 mL, By Mouth, Every 15 minutes, Dose #1 evening before colonoscopy and dose #2 is 6 hours before colonoscopy, # 1 each, 0 Refills, Acute 06/30/20 7:15:00 EST, 06/29/20 17:00:00 EST, REC Powder, [facility]/pharmacy #[id number], test date 06/30/20. please fill ASA... Start Date: 06/29/20 Stop Date: 06/30/20 Status: Ordered Multivitamin With Minerals By Mouth, [...] 02/23/20 8:48:00 EDT, Route to Pharmacy Electronically, [facility] #[id number], 157.48, cm, 02/04/20 11:41:00 EDT, Height, 77.2, kg, 05/20/19 20:41:00 EST... Start Date: 02/23/20 Status: Ordered Zofran 4 mg oral tablet 1 tablet = 4 mg, By Mouth, Every 8 hours, PRN Nausea & Vomiting, # 10 tablet, 0 Refills, Maintenance, 03/13/20 9:49:00 EST, Tablet, [facility], Partial fill upon patient [...]
--- OUTSIDE RECORDS SUMMARY | 2024-02-06 12:42 | XMS_ITS | Continuity of Care Document ---
Author Organization [facility] Adult Address [address] [place] [address]- Care Team Providers Care Wooden [place]ade Hardware Installer Name Role Phone Annette Castillo NP Primary Care Physician [facility]): 11/11/20 - 12/11/20 [facility] Adult [address] [place] [address]- Allergies, Adverse Reactions, Alerts Substance Reaction Severity [...] Refills, Maintenance, 11/07/20 15:07:00 EDT, [id number], 157, cm, 09/07/20 14:26:00 EDT, Height, 76.3, kg, 03/12/20 13:32:00 EST, Dry Weight Start Date: 11/07/20 Status: Ordered baclofen 10 mg oral tablet 10 mg, 1, tablet, By Mouth, Daily at bedtime, TAKE 1 TABLET BY MOUTH EVERYDAY AT BEDTIME, # 90 tablet, Refills 0, Tot. Refills 0, Maintenance, 11/09/20 8:38:00 EDT, Route to Pharmacy Electronically, [facility][id number], Partial fill upon patient req... Start Date: 11/09/20 Stop Date: 02/07/21 Status: Ordered calcium (as carbonate)-vitamin D 500 mg-400 intl units oral tablet 1 tablet, By Mouth, 2 times a day, # 180 tablet, 3 Refills, Maintenance, 11/09/20 8:38:00 EDT, Tablet, [facility][id number], 1 tablet By Mouth 2 times a [...] 30 sprays, 0 Refills, Acute, [facility], 30, SPRAY 2 SPRAYS INTO BOTH NOSTRILS 2 TIMES A DAY FOR 30 DAYS, 157.5, cm, 11/09/20 8:24:00 EDT, Height, 76.3, kg, 03/12/20... Start Date: 12/02/20 Status: Ordered levothyroxine 0.088 mg oral tablet 1 tablet, By Mouth, Daily, # 30 tablet, 5 Refills, Maintenance, 12/01/20 11:20:00 EDT, [facility], 157.5, cm, 11/09/20 8:24:00 EDT, Height, 76.3, kg, 03/12/20 13:32:00 EST, Dry Weight Start Date: 12/01/20 Status: Ordered Mirapex 1 mg oral tablet 1.5 tablet = 1.5 mg, By Mouth, 3 times a day, # 135 tablet, 5 Refills, Maintenance, 09/09/20 8:27:00 EDT, [id number], 157, cm, 09/07/20 14:26:00 EDT, Height, 76.3, [...] EDT, Route to Pharmacy Electronically, [facility] #[id number], 157, cm, 06/30/20 10:07:00 EST, Height, 76.3, kg, 03/12/20 13:32:00 EST, Dry We... Start Date: 08/05/20 Status: Ordered Zofran 4 mg oral tablet 1 tablet = 4 mg, By Mouth, Every 8 hours, PRN Nausea & Vomiting, # 10 tablet, 0 Refills, Maintenance, 03/13/20 9:49:00 EST, Tablet, [facility], Partial fill upon patient [...]
--- OUTSIDE RECORDS SUMMARY | 2024-02-06 12:42 | XMS_ITS | Continuity of Care Document ---
Author Organization [facility] Adult Address [address] [place] [address]- Care Team Providers Care Food Production Supervisor Name Role Phone Annette Castillo NP Primary Care Physician [phone] [facility]): 12/29/21 - 01/28/22 [facility] Adult [address] [place] [address]- Allergies, Adverse Reactions, Alerts Substance Reaction Severity [...] Daily, # 30 tablet, 2 Refills, Maintenance, 12/27/21 14:13:00 EDT, [facility] STORE 31059, 157.4, cm, 08/10/21 9:43:00 EDT, Height, 77.6, kg, 06/29/21 7:08:00 EST, Dry Weight Start Date: 12/27/21 Status: Ordered baclofen 10 mg oral tablet 1, tablet, By Mouth, Daily at bedtime, # 30 tablet, Refills 2, Route to Pharmacy Electronically, [facility] STORE 78754, 157.4, cm, 08/10/21 9:43:00 EDT, Height, 77.6, kg, 06/29/21 7:08:00 EST, Dry Weight Start Date: 11/20/21 Status: Ordered calcium (as carbonate)-vitamin D 500 mg-400 intl units oral tablet 1 tablet, By Mouth, 2 times a day, # 180 tablet, 3 Refills, Maintenance, 11/09/20 8:38:00 EDT, Tablet, [facility] #[id number], 1 tablet By Mouth 2 times a day,x90 days, 157.5, cm, 11/09/20 8:24:00 EDT, Height, 76.3, kg, 11/14/20 13:32:00 EST, Dry Weight Start Date: 11/09/20 [...] AT BEDTIME, # 60 tablet, 2 Refills, [facility] STORE 61978, 157.4, cm, 08/10/21 9:43:00 EDT, Height, 77.6, kg, 06/29/21 7:08:00 EST,Dry Weight Start Date: 11/20/21 Status: Ordered levothyroxine 0.088 mg oral tablet 1 tablet, By Mouth, Daily, # 30 tablet, 2 Refills, 11/20/21 8:21:00 EDT, [id number], LABS NEEDED FOR FURTHER REFILLS, 157.4, cm, 08/10/21 9:43:00 EDT, Height, 77.6, kg, 06/29/21 7:08:00 EST, Dry Weight Start Date: 11/20/21 Status: Ordered Multivitamin With Minerals By Mouth, 0 Refills, Maintenance Start Date: 04/02/11 Status: Ordered OYSTER SHELL CALCIUM-VIT D TAB OYSTER SHELL CALCIUM-VIT D TAB, 1, tablet, By Mouth, 2 times a day, # 60 tablet, 5 Refills, 157.4, cm, 08/10/21 9:43:00 EDT, Height, 77.6, kg, 06/29/21 7:08:00 EST, Dry Weight Start Date: 11/17/21 Status: Ordered Paxlovid 150 mg-100 mg oral [...] # 135 tablet, 5 Refills, [facility], 157.4, cm, 08/10/21 9:43:00 EDT, Height, 77.6, [...] tablet, Refills 5, Route to Pharmacy Electronically, [facility] 14238, 157.4, cm, 06/29/21 7:08:00 EST, Height, 77.6, kg, 06/29/21 7:08:00 EST, Dry Weight Start Date: 07/25/21 Status: Ordered Problem List Condition Confirmation Course [...] on: 11/09/20 Sex Patient Care team information Personnel Name: Annette Castillo NP Address: Address: [address] [place] [id number]
--- OUTSIDE RECORDS SUMMARY | 2024-02-06 12:42 | XMS_ITS | Continuity of Care Document ---
Author Organization [facility] Adult Address [address] [place] [address]- Care Team Providers Care Manager Advanced Name Role Phone Annette Castillo NP Primary Care Physician [phone] [facility] 02/04/23 - 03/06/23 [facility] Adult [address] [place] [address]- Allergies, Adverse Reactions, Alerts Substance Reaction Severity [...] virus vaccine, inactivated 6 01/24/12 Gi shakira [id number] 12y+ bivalent booster vax 03/02/22 Recorded SARS-CoV-2 [...] acel(Tdap) 12 09/29/07 Given 1Result Comment: [facility] [id number] 2Location History: pharmacy 3Location History: [facility] 4Admin Note: high dose done at [facility] 5Admin Note: immun records 6Admin Note: immun records 7Result Comment: [facility] 8Admin Note: immun records 9Admin Note: immun records 10Admin Note: immun records 11Admin Note: immun records 12Admin Note: immun records Medications Aspirin Low Dose 81 mg oral delayed release tablet 1 tablet, By Mouth, Daily, # 30 tablet, 5 Refills, Maintenance, 10/16/22 7:11:00 EDT, [facility]/pharmacy #1972, 158, cm, 10/10/22 9:38:00 EDT, Height, 80.8, kg, 10/04/22 20:27:00 EDT, Dry Weight Start Date: 10/16/22 Status: Ordered baclofen 10 mg oral tablet 1, tablet, By Mouth, Daily at bedtime, # 90 tablet, Refills 1, Tot. Refills 1, Maintenance, 02/18/23 10:44:00 EDT, Route to Pharmacy Electronically, [facility]/pharmacy #1972, 156.5, cm, 02/18/23 10:06:00 EDT, Height, [...] 3 Refills, Maintenance, 10/16/22 17:51:00 EDT, Tablet, [facility]/pharmacy #1972, 1 tablet By Mouth 2 times a day,x90 days, 158, cm, 10/10/22 9:38:00 EDT, Height, 80.8, kg, 10/04/22 20:27:00 EDT, Dry Weight Start Date: 10/16/22 Stop Date: 10/11/23 Status: Ordered gabapentin 600 mg oral tablet See Instructions, TAKE 1 TABLET BY MOUTH EVERY MORNING AND 1 TABLET EVERY NIGHT AT BEDTIME, # 60 tablet, 0 Refills, Maintenance, 02/05/23 11:14:00 EDT, [facility] 01514, 158, cm, 02/04/23 0:27:00 EDT,Height, 77, kg, 02/04/23 0:27:00 EDT, Dry Weight Start Date: 02/05/23 Status: Ordered levothyroxine 0.088 mg oral tablet See Instructions, TAKE 1 TABLET BY MOUTH EVERY DAY, # 90 tablet, 1 Refills, Maintenance, 01/04/23 7:17:00 EDT, [facility], 158, cm, 10/10/22 9:38:00 EDT, Height, 80.8, kg, 10/04/22 20:27:00 EDT,Dry Weight Start Date: 01/04/23 Status: Ordered meloxicam 15 mg oral tablet 1 tablet = 15 mg, By Mouth, Daily, # 30 tablet, 0 Refills, Maintenance, 02/06/23 15:50:00 EDT, Tablet, [facility]/pharmacy #1972, Partial fill upon patient request if the prescription is for a schedule II opioid drug., 158, cm, 02/06/23 15:24:00 EDT, Height,... Start Date: 02/06/23 Stop Date: 03/06/23 Status: Ordered pramipexole 1 mg oral tablet 1.5 tablet, By Mouth, 3 times a day, # 135 tablet, 5 Refills, Maintenance, 09/18/22 8:41:00 EDT, [facility]/pharmacy #1972, 157.4, cm, 02/05/22 10:42:00 EDT, Height, [...] 02/05/23 3:59:00 EDT, Route to Pharmacy Electronically, [facility] STORE 56887, 158, cm, 02/04/23 0:27:00 EDT, Height, 77, [...] Care Team Personnel Name: Angie Pope Position: [facility] Onco RN Member Role: Primary Care Nurse Name: Julissa Patel RN Position: [facility] RN Member Role: Primary Care Nurse Name: Olga Brooke RN Position: [facility] RN Member Role: Primary Care Nurse Name: Annette Castillo NP Position: [facility] PCO Associate Professional Member Role: PCP Address: Address: [address] [place] [address]- Name: rGady Ortiz Position: [facility] Outreach Member Role: Lifetime Consulting Physician Address: Address: [address] [place] [id number] Care Team Related Persons Name: KELLEE BARRAGAN Name: ANUEL PARKER Address: [address] [place] [address] Name: ANUEL GU Address: [address] [place] [address] Name: KELLEE PEÑA Address: [address] [place] [address]
--- OUTSIDE RECORDS SUMMARY | 2024-02-06 12:42 | XMS_ITS | Continuity of Care Document ---
Author Organization [facility] Adult Address [address] [place] [address]- Care Team Providers Care Hydraulic Jack Adjuster Name Role Phone Annette Castillo NP Primary Care Physician [facility] 11[facility]18[facility]20 - 12/18/20 [facility] [address] [place] [address]- Allergies, Adverse Reactions, Alerts Substance Reaction Severity [...] [facility] 4Admin Note: high dose done at [facility] 5Admin Note: immun records 6Admin Note: immun records 7Admin Note: immun records 8Admin Note: immun records 9Admin Note: immun records 10Admin Note: immun records 11Admin Note: immun records Medications aspirin 81 mg oral delayed release tablet = 81 mg, By Mouth, Daily, # 30 tablet, 3 Refills, Maintenance, 11/07/20 15:07:00 EDT, [facility][id number], 157, cm, 09/07/20 14:26:00 EDT, Height, 76.3, kg, 03/12/20 13:32:00 EST, Dry Weight Start Date: 11/07/20 Status: Ordered baclofen 10 mg oral tablet 10 mg, 1, tablet, By Mouth, Daily at bedtime, TAKE 1 TABLET BY MOUTH EVERYDAY AT BEDTIME, # 90 tablet, Refills 0, Tot. Refills 0, Maintenance, 11/09/20 8:38:00 EDT, Route to Pharmacy Electronically, [facility][id number], Partial fill upon patient req... Start Date: 11/09/20 Stop Date: 02/07/21 Status: Ordered calcium (as carbonate)-vitamin D 500 mg-400 intl units oral tablet 1 tablet, By Mouth, 2 times a day, # 180 tablet, 3 Refills, Maintenance, 11/09/20 8:38:00 EDT, Tablet, [facility] #[id number], 1 tablet By Mouth 2 times a [...] 30 sprays, 0 Refills, Acute, [facility], 30, SPRAY 2 SPRAYS INTO BOTH NOSTRILS 2 TIMES A DAY FOR 30 DAYS, 157.5, cm, 11/09/20 8:24:00 EDT, Height, 76.3, kg, 03/12/20... Start Date: 12/02/20 Status: Ordered levothyroxine 0.088 mg oral tablet 1 tablet, By Mouth, Daily, # 30 tablet, 5 Refills, Maintenance, 12/01/20 11:20:00 EDT, [facility], 157.5, cm, 11/09/20 8:24:00 EDT, Height, 76.3, kg, 03/12/20 13:32:00 EST, Dry Weight Start Date: 12/01/20 Status: Ordered Mirapex 1 mg oral tablet 1.5 tablet = 1.5 mg, By Mouth, 3 times a day, # 135 tablet, 5 Refills, Maintenance, 09/09/20 8:27:00 EDT, [facility] #[id number], 157, cm, 09/07/20 14:26:00 EDT, Height, 76.3, [...] EDT, Route to Pharmacy Electronically, [facility] #[id number], 157, cm, 06/30/20 10:07:00 EST, Height, 76.3, kg, 03/12/20 13:32:00 EST, Dry We... Start Date: 08/05/20 Status: Ordered Zofran 4 mg oral tablet 1 tablet = 4 mg, By Mouth, Every 8 hours, PRN Nausea & Vomiting, # 10 tablet, 0 Refills, Maintenance, 03/13/20 9:49:00 EST, Tablet, [facility], Partial fill upon patient request, [...]
--- OUTSIDE RECORDS SUMMARY | 2024-02-06 12:42 | XMS_ITS | Continuity of Care Document ---
Author Organization [facility] Address [address] [place] [address]- Care Team Providers Care Funeral Limousine Driver Name Role Phone Annette Castillo NP Primary Care Physician [facility] Date[facility]s): 03/27/21 - 04/26/21 [facility] [address] [place] [address]- Allergies, Adverse Reactions, Alerts Substance Reaction Severity [...] Give n influenza virus vaccine, inactivated 02/02/15 Magno rded influenza virus vaccine, inactivated 5 01/28/13 [...] [facility] 4Admin Note: high dose done at [facility] 5Admin Note: immun records 6Admin Note: immun records 7Admin Note: immun records 8Admin Note: immun records 9Admin Note: immun records 10Admin Note: immun records 11Admin Note: immun records Medications Aspirin Low Dose 81 mg oral delayed release tablet 1 tablet, By Mouth, Daily, # 30 tablet, 3 Refills, [facility] 02189, 157.5, cm, 11/09/20 8:24:00 EDT, Height, 76.3, kg, 03/12/20 13:32:00 EST, Dry Weight Start Date: 02/23/21 Status: Ordered baclofen 10 mg oral tablet 1, tablet, By Mouth, Daily at bedtime, # 30 tablet, Refills 2, Route to Pharmacy Electronically, [facility] 93526, 157.5, cm, 11/09/20 8:24:00 EDT, Height, 76.3, kg, 03/12/20 13:32:00 EST, Dry Weight Start Date: 01/25/21 Status: Ordered calcium (as carbonate)-vitamin D 500 mg-400 intl units oral tablet 1 tablet, By Mouth, 2 times a day, # 180 tablet, 3 Refills, Maintenance, 11/09/20 8:38:00 EDT, Tablet, [id number], 1 tablet By Mouth 2 times a [...] Stop 02/07/22 10:33:00 EDT, 02/07/21 10:32:00 EDT, [facility]/pharmacy #0993, SPRAY 2 SPRAYS INTO BOTH NOSTRILS 2 TIMES A DAY FOR 90 DAYS, 157.5, cm... Start Date: 02/07/21 Stop Date: 02/07/22 Status: Ordered lactulose 10 gm/15 ml oral syrup 15 mL = 10 Gm, By Mouth, Daily, for 60 days, Take an additional 30mL daily as needed for constipation, # 900 mL, 0 Refills, Acute 05/12/21 9:23:00 EST, 03/13/21 9:23:00 EST, Syrup, [facility]/pharmacy #0993, Partial fill upon patient request if the prescript... Start Date: 03/13/21 Stop Date: 05/12/21 Status: Ordered levothyroxine 0.088 mg oral tablet 1 tablet, By Mouth, Daily, # 30 tablet, 5 Refills, Maintenance, 12/01/20 11:20:00 EDT, [facility] 59775, 157.5, cm, 11/09/20 8:24:00 EDT, Height, 76.3, kg, 03/12/20 13:32:00 EST, Dry Weight Start Date: 12/01/20 Status: Ordered Multivitamin With Minerals By Mouth, 0 Refills, Maintenance Start Date: 04/02/11 Status: Ordered NuLYTELY with Flavor Packs oral powder for reconstitution 240 mL, By Mouth, Every 10 minutes, see split prep instructions, # 4,000 mL, 0 Refills, Maintenance, 03/30/21 9:54:00 EST, REC Powder, [facility]/pharmacy #1972, Partial fill upon patient request if the prescription is for a schedule II opioid drug., 240 mL... Start Date: 03/30/21 Status: Ordered pramipexole 1 mg oral tablet 1.5 tablet, By Mouth, 3 times a day, # 135 tablet, 5 Refills, [facility], 157.5, cm, 11/09/20 8:24:00 EDT, Height, 76.3, [...] tablet, Refills 5, Route to Pharmacy Electronically, [facility] 0[facility], 157.5, cm, 11/09/20 8:24:00 EDT, Height, 76.3, kg, 03/12/20 13:32:00 EST, Dry Weight Start Date: 01/25/21 Status: Ordered Zofran 4 mg oral tablet 1 tablet = 4 mg, By Mouth, Every 8 hours, PRN Nausea & Vomiting, # 10 tablet, 0 Refills, Maintenance, 03/13/20 9:49:00 EST, Tablet, [facility], Partial fill upon patient request, [...]
--- OUTSIDE RECORDS SUMMARY | 2024-02-06 12:42 | XMS_ITS | Continuity of Care Document ---
Author Organization [facility] Address [address] [place] [address]- Care Team Providers Care Coiler Name Role Phone Annette Castillo NP Primary Care Physician [facility] Date[facility]s): 07/04/20 - 08/03/20 [facility] [address] [place] [address]- Allergies, Adverse Reactions, Alerts Substance Reaction Severity [...] tablet, 3 Refills, Maintenance, 04/08/20 8:32:00 EST, [facility] 8[facility], 164, cm, 03/17/20 16:43:00 EST, Height, 76.3, kg, 03/12/20 13:32:00 EST, Dry Weight Start Date: 04/08/20 Status: Ordered baclofen 10 mg oral tablet 10 mg, 1, tablet, By Mouth, Daily at bedtime, TAKE 1 TABLET BY MOUTH EVERYDAY AT BEDTIME, # 90 tablet, Refills 0, Tot. Refills 0, Maintenance, 05/24/20 9:11:00 EST, Route to Pharmacy Electronically, [id number], Partial fill upon patient req... Start Date: 05/24/20 Status: Ordered calcium (as carbonate)-vitamin D 500 mg-400 intl units oral tablet 1 tablet, By Mouth, 2 times a day, # 180 tablet, 1 Refills, Maintenance, 05/05/20 16:26:00 EST, Tablet, [facility] #[id number], 1 tablet By Mouth 2 times a day, 164, cm, 03/17/20 16:43:00 EST, Height,76.3, kg, 03/12/20 13:32:00 EST, Dry Weight Start Date: 05/05/20 Status: Ordered CeleBREX 200 mg oral capsule 1 capsule = 200 mg, By Mouth, 2 times a day, Until mail order is delivered, # 28 capsule, 0 Refills, Maintenance, 10/19/19 12:34:00 EDT, Capsule, [facility]/pharmacy #0993, 158, cm, 09/30/19 10:10:00 EDT, [...] 0 Refills, Maintenance, 11/12/19 16:33:00 EDT, Capsule, [facility]/pharmacy #0993, 158, cm, 11/12/19 15:02:00 EDT, [...] 180 tablet, 0 Refills, 05/30/20 11:17:00 EST, [facility]/pharmacy #0993, 164, cm, 03/17/20 16:43:00 EST, Height, 76.3, kg, 03/12/20 13:32:00... Start Date: 05/30/20 Status: Ordered levothyroxine 0.088 mg oral tablet 1 tablet = 88 mcg, By Mouth, Daily, # 90 tablet, 1 Refills, Soft Stop, 03/07/20 15:20:00 EST, [facility] #[id number], 157.48, cm, 02/04/20 11:41:00 EDT, Height, 77.2, kg, 05/20/19 20:41:00 EST, Dry Weight Start Date: 03/07/20 Stop Date: 09/03/20 Status: Ordered Mirapex 1 mg oral tablet 1.5 tablet = 1.5 mg, By Mouth, 3 times a day, # 135 tablet, 4 Refills, Maintenance, 12/24/19 9:28:00 EDT, [facility] #[id number], 158, cm, 11/12/19 15:02:00 EDT, Height, 77.2, [...] 8:48:00 EDT, Route to Pharmacy Electronically, [facility][id number], 157.48, cm, 02/04/20 11:41:00 EDT, Height, 77.2, kg, 05/20/19 20:41:00 EST... Start Date: 02/23/20 Status: Ordered Zofran 4 mg oral tablet 1 tablet = 4 mg, By Mouth, Every 8 hours, PRN Nausea & Vomiting, # 10 tablet, 0 Refills, Maintenance, 03/13/20 9:49:00 EST, Tablet, [facility], Partial fill upon [...]
--- OUTSIDE RECORDS SUMMARY | 2024-02-06 12:42 | XMS_ITS | Continuity of Care Document ---
Author Organization [facility] Address [address] [place] [address]- Care Team Providers Care Tnt Line Supervisor Name Role Phone Annette Castillo NP Primary Care Physician [phone] [facility]counter [facility] Date[facility]s): 04/25/23 - 05/25/23 [facility] [address] [place] [address]- Allergies, Adverse Reactions, Alerts Substance Reaction Severity Status morphine 1 Persistent Moderate Active penicillins Active 1nausea vomiting Immunizations Given and Recorded Vaccine Date Status Refusal Reason SARS-CoV-2(COVID-19)mRNA-LNP vac([id number]) 04/17/23 Recorded influenza virus vaccine, inactivated 12/27/22 [...] virus vaccine, inactivated 6 01/24/12 Gi shakira [id number] 12y+ bivalent booster vax 03/02/22 Recorded SARS-CoV-2 [...] 12 09/29/07 Given 1Result Comment: [facility] [id number] 2Location History: pharmacy 3Location History: [facility] 4Admin Note: high dose done at [facility] 5Admin Note: immun records 6Admin Note: immun records 7Result Comment: [facility] 8Admin Note: immun records 9Admin Note: immun records 10Admin Note: immun records 11Admin Note: immun records 12Admin Note: immun records Medications Aspirin Low Dose 81 mg oral delayed release tablet 1 tablet, By Mouth, Daily, # 90 tablet, 1 Refills, Maintenance, 04/26/23 6:56:00 EST, [facility] 84584, 156.5, cm, 02/18/23 10:06:00 EDT, Height, 77, kg, 02/04/23 0:27:00 EDT, Dry Weight Start Date: 04/26/23 Status: Ordered baclofen 10 mg oral tablet 1, tablet, By Mouth, Daily at bedtime, # 90 tablet, Refills 1, Tot. Refills 1, Maintenance, 02/18/23 10:44:00 EDT, Route to Pharmacy Electronically, [facility]/pharmacy #1972, 156.5, cm, 02/18/23 10:06:00 EDT, [...] 3 Refills, Maintenance, 10/16/22 17:51:00 EDT, Tablet, [facility]/pharmacy #1972, 1 tablet By Mouth 2 [...] Refills, Maintenance, 01/04/23 7:17:00 EDT, [facility], 158, cm, 10/10/22 9:38:00 EDT, Height, 80.8, kg, 10/04/22 20:27:00 EDT,Dry Weight Start Date: 01/04/23 Status: Ordered meloxicam 15 mg oral tablet 1 tablet = 15 mg, By Mouth, Daily, # 30 tablet, 0 Refills, Maintenance, 02/06/23 15:50:00 EDT, Tablet, [facility]/pharmacy #1972, Partial fill upon patient request [...] Care Nurse Name: Julissa Patel RN Position: [facility] RN Member Role: Primary Care Nurse Name: Olga Brooke RN Position: [facility] RN Member Role: Primary Care Nurse Name: Annette Castillo NP Position: [facility] PCO Associate Professional Member Role: PCP Address: Address: [address] [place] [address]- Name: Grady Ortiz Position: [facility] Outreach Member Role: Lifetime Consulting Physician Address: Address: [address] [place] [address]- Care Team Related Persons Name: KELLEE BARRAGAN Name: ANUEL PARKER Address: [address] [place] [address] Name: ANUEL GU Address: [address] [place] [address] Name: KELLEE PEÑA Address: home [address] [place] [address]
--- OUTSIDE RECORDS SUMMARY | 2024-02-06 12:42 | XMS_ITS | Continuity of Care Document ---
Author Organization [facility] Address [address] [place] [address]- Care Team Providers Care Laborer Plumbing Name Role Phone Annette Castillo NP Primary Care Physician [place] [facility]12[place]21 - 07/12/21 [facility] [address] [place] [address]- [place] Allergies, Adverse Reactions, Alerts Substance Reaction [...] [facility] 4Admin Note: high dose done at [facility] 5Admin Note: immun records 6Admin Note: immun records 7Admin Note: immun records 8Admin Note: immun records 9Admin Note: immun records 10Admin Note: immun records 11Admin Note: immun records Medications Aspirin Low Dose 81 mg oral delayed release tablet 1 tablet, By Mouth, Daily, # 30 tablet, 2 Refills, [facility] STORE 00560, 157.5, cm, 03/13/21 9:05:00 EST, Height, 76.3, kg, 03/12/20 13:32:00 EST, Dry Weight Start Date: 06/26/21 Status: Ordered baclofen 10 mg oral tablet 1, tablet, By Mouth, Daily at bedtime, # 30 tablet, Refills 2, Route to Pharmacy Electronically, [facility], 157.5, cm, 03/13/21 9:05:00 EST, Height, 76.3, kg, 03/12/20 13:32:00 EST, Dry Weight Start Date: 04/27/21 Status: Ordered calcium (as carbonate)-vitamin D 500 mg-400 intl units oral tablet 1 tablet, By Mouth, 2 times a day, # 180 tablet, 3 Refills, Maintenance, 11/09/20 8:38:00 EDT, Tablet, [id number], 1 tablet By Mouth 2 times a [...] # 30 tablet, 5 Refills, [facility], 157.5, cm, 03/13/21 9:05:00 EST, Height, 76.3, kg, 03/12/20 13:32:00 EST, Dry Weight Start Date: 05/25/21 Status: Ordered Multivitamin With Minerals By Mouth, 0 Refills, Maintenance Start Date: 04/02/11 Status: Ordered pramipexole 1 mg oral tablet 1.5 tablet, By Mouth, 3 times a day, # 135 tablet, 5 Refills, [facility], 157.5, cm, 11/09/20 8:24:00 EDT, Height, 76.3, [...] tablet, Refills 5, Route to Pharmacy Electronically, [facility], 157.5, cm, 11/09/20 8:24:00 EDT, Height, 76.3, kg, 03/12/20 13:32:00 EST, Dry Weight Start Date: 01/25/21 Status: Ordered Problem List Condition Effective Dates [...]
--- OUTSIDE RECORDS SUMMARY | 2024-02-06 12:42 | XMS_ITS | Continuity of Care Document ---
Author Organization [facility] Address [address] [place] [address]- Care Team Providers Care Tongue Binder Name Role Phone Annette Kraft NP Primary Care Physician [place] [facility] 12[place] 12/11/19 [facility] [address] [place] [address] [facility] Encounter Diagnosis Left shoulder pain(Discharge Diagnosis) - 12/04/19 Lumbar spondylosis(Discharge Diagnosis) - 12/04/19 Constipation(Discharge Diagnosis) - 12/04/19 Attending Physician: Annette Kraft NP Allergies, Adverse Reactions, Alerts Substance Reaction [...] 8:41:00 EDT, Route to Pharmacy Electronically, [facility][id number], 158, cm, 11/12/19 15:02:00 EDT, Height, 77.2, kg, 05/20/19 20:41:00 EST, Dry Weight Start Date: 12/11/19 Stop Date: 03/10/20 Status: Ordered baclofen 10 mg oral tablet 10 mg, 1, tablet, By Mouth, Daily at bedtime, for 90 days, # 90 tablet, Refills 0, Tot. Refills 0, Physician Stop 03/10/20 8:40:00 EST, 12/11/19 8:40:00 EDT, Route to Pharmacy Electronically, [id number], 158, cm, 11/12/19 15:02:00 EDT, [facility]... Start Date: 12/11/19 Stop Date: 03/10/20 Status: Ordered calcium (as carbonate)-vitamin D 500 mg-400 intl units oral tablet 1 tablet, By Mouth, 2 times a day, # 180 tablet, 1 Refills, Maintenance, 10/27/19 9:07:00 EDT, Tablet, [facility] #[id number], 1 tablet By Mouth 2 times a day, 158, cm, 09/30/19 10:10:00 EDT, Height, 77.2, kg, 05/20/19 20:41:00 EST, Dry Weight Start Date: 10/27/19 Status: Ordered CeleBREX 200 mg oral capsule 1 capsule = 200 mg, By Mouth, 2 times a day, Take with food to avoid upset stomach, # 180 capsule, 0 Refills, Maintenance, 10/19/19 12:33:00 EDT, Capsule, [facility] #[id number], 158, cm, 09/30/19 10:10:00 EDT, Height, 77.2, kg, 05/20/19 20:41:00 EST,... Start Date: 10/19/19 Stop Date: 01/17/20 Status: Ordered CeleBREX 200 mg oral capsule 1 capsule = 200 mg, By Mouth, 2 times a day, Until mail order is delivered, # 28 capsule, 0 Refills, Maintenance, 10/19/19 12:34:00 EDT, Capsule, [facility]/pharmacy #0993, 158, cm, 09/30/19 10:10:00 [...] 0 Refills, Maintenance, 11/12/19 16:33:00 EDT, Capsule, [facility]/pharmacy #0993, 158, cm, 11/12/19 15:02:00 [...] THEMID-AFTERNOON, # 180 tablet, 1 Refills, Maintenance, [facility] 35325, 158, cm, 07/30/19 12:49:00 EDT, Height, 77.2, kg, 05/20/19 20:41:00 EST, Dry Weight Start Date: 08/12/19 Status: Ordered lactulose 10 gm/15 ml oral syrup 15 mL = 10 Gm, By Mouth, 2 times a day, PRN as needed for constipation, # 480 mL, 1 Refills, Maintenance, 07/27/19 12:04:00 EDT, Syrup, [facility]/pharmacy #0993, 15 mL By Mouth 2 times a day,PRN:as needed for constipation, 157, cm, 07/23/19 9:32:00 EDT, Hei... Start Date: 07/27/19 Status: Ordered levothyroxine 0.088 mg oral tablet 1 tablet = 88 mcg, By Mouth, Daily, # 90 tablet, 1 Refills, Soft Stop, 09/28/19 11:17:00 EDT, [facility]/pharmacy #0993, 158, cm, 09/08/19 10:27:00 EDT, Height, 77.2, kg, 05/20/19 20:41:00 EST, Dry Weight Start Date: 09/28/19 Stop Date: 03/26/20 Status: Ordered Mirapex 1 mg oral tablet 1.5 tablet = 1.5 mg, By Mouth, 3 times a day, # 135 tablet, 4 Refills, Maintenance, 12/04/19 9:39:00 EDT, [facility]/pharmacy #0993, 158, cm, 11/12/19 15:02:00 [...] 08/12/19 8:23:00 EDT, Route to Pharmacy Electronically, [facility]/pharmacy #0993, 158, cm, 07/30/19 12:49:00 [...] Effective Dates Health Status Clinical Service Informant Left shoulder pain Discharge Diagnosis 12/04/19 Lumbar spondylosis Discharge Diagnosis 12/04/19 Constipation Discharge Diagnosis 12/04/19 Social History Social History Type Response Smoking Status Former smoker; Type: Cigarettes; Tobacco use times per day: quit smoking 30 yrs ago; entered on: 06/25/15 Sex
--- OUTSIDE RECORDS SUMMARY | 2024-02-06 12:42 | XMS_ITS | Continuity of Care Document ---
Author Organization [facility] Address [address] [place] [address]- Care Team Providers Care Drafting Technician Name Role Phone Annette Castillo NP Primary Care Physician [phone] [facility]counter [facility] Date(s): 08/25/20 - 09/24/20 [facility] [address] [place] [address]- Allergies, Adverse Reactions, Alerts Substance Reaction Severity [...] Refills, Maintenance, 04/08/20 8:32:00 EST, [facility], 164, cm, 03/17/20 16:43:00 EST, Height, 76.3, kg, 03/12/20 13:32:00 EST, Dry Weight Start Date: 04/08/20 Status: Ordered baclofen 10 mg oral tablet 10 mg, 1, tablet, By Mouth, Daily at bedtime, TAKE 1 TABLET BY MOUTH EVERYDAY AT BEDTIME, # 90 tablet, Refills 0, Tot. Refills 0, Maintenance, 08/05/20 12:52:00 EDT, Route to Pharmacy Electronically,[facility] #[id number], Partial fill upon patient re... Start Date: 08/05/20 Status: Ordered calcium (as carbonate)-vitamin D 500 mg-400 intl units oral tablet 1 tablet, By Mouth, 2 times a day, # 180 tablet, 1 Refills, Maintenance, 05/05/20 16:26:00 EST, Tablet, [id number], 1 tablet By Mouth 2 times a day, 164, cm, 03/17/20 16:43:00 EST, Height,76.3, kg, 03/12/20 13:32:00 EST, Dry Weight Start Date: 05/05/20 Status: Ordered CeleBREX 200 mg oral capsule 1 capsule = 200 mg, By Mouth, 2 times a day, Until mail order is delivered, # 28 capsule, 0 Refills, Maintenance, 10/19/19 12:34:00 EDT, Capsule, [facility]/pharmacy #0993, 158, cm, 09/30/19 [...] THEMID-AFTERNOON, # 180 tablet, 0 Refills, Maintenance, 09/22/20 14:05:00 EDT, [id number], 157, cm, 09/07/20 14:26:00 EDT, Height, 76.3, kg, 11... Start Date: 09/22/20 Status: Ordered levothyroxine 0.088 mg oral tablet 1 tablet, By Mouth, Daily, # 30 tablet, 2 Refills, Maintenance, 09/09/20 8:28:00 EDT, [id number], Rx resent from 09/05, 157, cm, 09/07/20 14:26:00 EDT, Height, 76.3, kg, 03/12/20 13:32:00 EST, Dry Weight Start Date: 09/09/20 Status: Ordered Mirapex 1 mg oral tablet 1.5 tablet = 1.5 mg, By Mouth, 3 times a day, # 135 tablet, 5 Refills, Maintenance, 09/09/20 8:27:00 EDT, [facility] #[id number], 157, cm, 09/07/20 14:26:00 EDT, Height, 76.3, [...] EDT, Route to Pharmacy Electronically, [id number], 157, cm, 06/30/20 10:07:00 EST, Height, 76.3, kg, 03/12/20 13:32:00 EST, Dry We... Start Date: 08/05/20 Status: Ordered Zofran 4 mg oral tablet 1 tablet = 4 mg, By Mouth, Every 8 hours, PRN Nausea & Vomiting, # 10 tablet, 0 Refills, Maintenance, 03/13/20 9:49:00 EST, Tablet, [facility], Partial fill upon patient request, [...]
--- OUTSIDE RECORDS SUMMARY | 2024-02-06 12:42 | XMS_ITS | Continuity of Care Document ---
Author Organization [facility] Address [address] [place] [address]- Care Team Providers Care Can Sterilizer Name Role Phone Cecilia SANTAMARIA, Leonarda Primary Care Physician [phone] [id number] Date(s): 10/01/19 - 10/08/19 [facility] [address] [place] [address] [facility] Attending Physician: Lewis Goodrich MD Admitting Physician: Lewis Goodrich MD Referring Physician: Leonarda Brooks NP Allergies, Adverse Reactions, Alerts Substance Reaction [...] Maintenance, 03/04/19 15:42:41 EST,Route to Pharmacy Electronically, [id number], [facility]/pharmacy #[id number] Start Date: 03/04/19 Stop Date: 10/30/19 Status: Ordered baclofen 10 mg oral tablet See Instructions, TAKE 1 TABLET BY MOUTH EVERYDAY AT BEDTIME, # 90 tablet, Refills 0, Maintenance, Instructions Replace Required Details, Route to Pharmacy Electronically, [facility] STORE 12623, 158, cm, 07/30/19 12:49:00 EDT, Height, 77.2, kg, 05/20/19 20:... Start Date: 08/19/19 Status: Ordered calcium (as carbonate)-vitamin D 500 mg-400 intl units oral tablet 1 tablet, By Mouth, 2 times a day, # 60 tablet, 5 Refills, Maintenance, 05/26/19 13:08:00 EST, Tablet, [facility]/pharmacy #0993, 1 tablet By Mouth 2 times [...] Refills, Maintenance, 10/08/19 14:27:00 EDT, Capsule, [facility], 158, cm, 09/30/19 10:10:00 E... Start [...] # 180 tablet, 1 Refills, Maintenance, [facility] STORE 88656, 158, cm, 07/30/19 12:49:00 EDT, Height, 77.2, [...] Refills, Maintenance, 05/08/19 15:54:00 EST, [facility]/pharmacy #0993, 157, cm, 05/07/19 16:41:00 EST, Height, [...]
--- OUTSIDE RECORDS SUMMARY | 2024-02-06 12:42 | XMS_ITS | Continuity of Care Document ---
Author Organization [facility] Address [address] [place] [address]- Care Team Providers Care Lawyer Real Estate Name Role Phone Annette Castillo NP Primary Care Physician [facility]): 03[facility]11[facility]23 - 04/10/23 [facility] [address] [place] [address]- Allergies, Adverse Reactions, Alerts Substance Reaction Severity [...] virus vaccine, inactivated 6 01/24/12 Gi shakira [id number] 12y+ bivalent booster vax 03/02/22 Recorded SARS-CoV-2 [...] Given 1Result Comment: [facility] [id number] 2Location History: pharmacy 3Location History: [facility] 4Admin Note: high dose done at [facility] 5Admin Note: immun records 6Admin Note: immun records 7Result Comment: [facility] 8Admin Note: immun records 9Admin Note: [...] Refills, Maintenance, 01/04/23 7:17:00 EDT, [facility], 158, cm, 10/10/22 9:38:00 EDT, Height, 80.8, [...] Care Team Personnel Name: Angie Pope Position: [facility] Onco RN Member Role: Primary Care Nurse Name: Julissa Patel RN Position: [facility] RN Member Role: Primary Care Nurse Name: Olga Brooke RN Position: [facility] RN Member Role: Primary Care Nurse Name: Annette Castillo NP Position: [facility] PCO Associate Professional Member Role: PCP Address: Address: [address] [place] [address]- Name: Grady Ortiz Position: [facility] Outreach Member Role: Lifetime Consulting Physician Address: Address: [address] [place] [address]- Care Team Related Persons Name: KELLEE BARRAGAN Name: ANUEL PARKER Address: [address] [place] [address] Name: ANUEL GU Address: [address] [place] [address] Name: KELLEE PEÑA Address: [address] [place] [address]
--- OUTSIDE RECORDS SUMMARY | 2024-02-06 12:42 | XMS_ITS | Continuity of Care Document ---
Author Organization [facility] Address [address] [place] [address]- Care Team Providers Care Brick Mason Name Role Phone Annette Castillo NP Primary Care Physician [facility] 01[facility]23 - 02/03/23 [facility] [address] [place] [address]- Allergies, Adverse Reactions, Alerts Substance Reaction Severity [...] tetanus/diphtheria/pertussis, acel(Tdap) 12 09/29/07 Given 1Result Comment: [facility] [id number] 2Location History: pharmacy 3Location History: [facility] tablet, 5 Refills, Maintenance, 10/16/22 7:11:00 EDT, [facility]/pharmacy #1972, 158, cm, 10/10/22 9:38:00 EDT, Height, 80.8, kg, 10/04/22 20:27:00 EDT, Dry Weight Start Date: 10/16/22 Status: Ordered baclofen 10 mg oral tablet 1, tablet, By Mouth, Daily at bedtime, # 30 tablet, Refills 1, Tot. Refills 1, Maintenance, 10/16/22 13:33:00 EDT, Route to Pharmacy Electronically, [facility]/pharmacy #1972, 158, cm, 10/10/22 9:38:00 EDT,Height, 80.8, [...] Refills, Maintenance, 01/04/23 7:17:00 EDT, [facility], 158, cm, 10/10/22 9:38:00 EDT, Height, 80.8, [...] Dry Weight Start Date: 03/13/20 Status: Ordered traMADol 50 mg oral tablet 1 tablet = 50 mg, By Mouth, Every 4 hours, PRN for pain, for 3 days, not to exceed 400 mg/day, # 7 tablet, 0 Refills, Acute 02/07/23 0:03:00 EDT, 02/04/23 0:03:00 EDT, Tablet, [facility]/pharmacy #1972, Partial fill upon patient request if the prescription i... Start Date: 02/04/23 Stop Date: 02/07/23 Status: Ordered traZODone 100 mg oral tablet 1, tablet, By Mouth, Daily at bedtime, # 30 tablet, Refills 5, Tot. Refills 5, Maintenance, 07/25/22 16:33:00 EDT, Route to Pharmacy Electronically, [facility] #[id number], 157.4, cm, 02/05/22 10:42:00 EDT, Height, 77.6, [...] Care Team Personnel Name: Angie Pope Position: [facility] Onco RN Member Role: Primary Care Nurse Name: Julissa Patel RN Position: [facility] RN Member Role: Primary Care Nurse Name: Boubacar Dumont RN Position: [facility] RN Member Role: Primary Care Nurse Name: Olga Brooke RN Position: [facility] RN Member Role: Primary Care Nurse Name: Annette Castillo NP Position: [facility] PCO Associate Professional Member Role: PCP Address: Address: [address] [place] [address]- Name: Grady Ortiz Position: [facility] Outreach Member Role: Lifetime Consulting Physician Address: Address: [address] [place] [id number] Care Team Related Persons Name: ANUEL PARKER Address: home [address] [place] [address] Name: ANUEL GU Address: [address] [place] [address] Name: KELLEE PEÑA Address: home [address] [place] [address]
--- OUTSIDE RECORDS SUMMARY | 2024-02-06 12:42 | XMS_ITS | Continuity of Care Document ---
Author Organization [facility] Adult Address [address] [place] [address]- Care Team Providers Care Service Loss Control Consultant Name Role Phone Annette Castillo NP Primary Care Physician [facility]): 02/04/23 - 03/06/23 [facility] [address] [place] [address]- Allergies, Adverse Reactions, Alerts Substance Reaction Severity [...] virus vaccine, inactivated 6 01/24/12 Gi shakira [id number] 12y+ bivalent booster vax 03/02/22 Recorded SARS-CoV-2 [...] tetanus/diphtheria/pertussis, acel(Tdap) 12 09/29/07 Given 1Result Comment: [facility] [id number] 2Location History: pharmacy 3Location History: [facility] 4Admin Note: high dose done at [facility] 5Admin Note: immun records 6Admin Note: immun records 7Result Comment: [facility] 8Admin Note: immun records 9Admin Note: immun records 10Admin Note: immun records 11Admin Note: immun records 12Admin Note: immun records Medications Aspirin Low Dose 81 mg oral delayed release tablet 1 tablet, By Mouth, Daily, # 30 tablet, 5 Refills, Maintenance, 10/16/22 7:11:00 EDT, [facility]/pharmacy #1972, 158, cm, 10/10/22 9:38:00 EDT, Height, 80.8, kg, 10/04/22 20:27:00 EDT, Dry Weight Start Date: 10/16/22 Status: Ordered baclofen 10 mg oral tablet 1, tablet, By Mouth, Daily at bedtime, # 90 tablet, Refills 1, Tot. Refills 1, Maintenance, 02/18/23 10:44:00 EDT, Route to Pharmacy Electronically, [facility]/pharmacy #1972, 156.5, cm, 02/18/23 [...] 3 Refills, Maintenance, 10/16/22 17:51:00 EDT, Tablet, [facility]/pharmacy #1972, 1 tablet By [...] tablet, 0 Refills, Maintenance, 02/05/23 11:14:00 EDT, [facility], 158, cm, 02/04/23 0:27:00 EDT,Height, 77, kg, 02/04/23 0:27:00 EDT, Dry Weight Start Date: 02/05/23 Status: Ordered levothyroxine 0.088 mg oral tablet See Instructions, TAKE 1 TABLET BY MOUTH EVERY DAY, # 90 tablet, 1 Refills, Maintenance, 01/04/23 7:17:00 EDT, [facility], 158, cm, 10/10/22 9:38:00 EDT, Height, 80.8, kg, 10/04/22 20:27:00 EDT,Dry Weight Start Date: 01/04/23 Status: Ordered meloxicam 15 mg oral tablet 1 tablet = 15 mg, By Mouth, Daily, # 30 tablet, 0 Refills, Maintenance, 02/06/23 15:50:00 EDT, Tablet, [facility]/pharmacy #1972, Partial fill upon patient request if the prescription is for a schedule II opioid drug., 158, cm, 02/06/23 15:24:00 EDT, Height,... Start Date: 02/06/23 Stop Date: 03/06/23 Status: Ordered pramipexole 1 mg oral tablet 1.5 tablet, By Mouth, 3 times a day, # 135 tablet, 5 Refills, Maintenance, 09/18/22 8:41:00 EDT, [facility]/pharmacy #1972, 157.4, cm, 02/05/22 [...] 02/05/23 3:59:00 EDT, Route to Pharmacy Electronically, [facility] ST[facility] 20645, 158, cm, 02/04/23 0:27:00 EDT, Height, 77, [...] Care Team Personnel Name: Angie Pope Position: [facility] Onco RN Member Role: Primary Care Nurse Name: Julissa Patel RN Position: [facility] RN Member Role: Primary Care Nurse Name: Olga Brooke RN Position: [facility] RN Member Role: Primary Care Nurse Name: Annette Castillo NP Position: [facility] PCO Associate Professional Member Role: PCP Address: Address: [address] [place] [address]- Name: Grady Ortiz Position: [facility] Outreach Member Role: Lifetime Consulting Physician Address: Address: [address] [place] [id number] Care Team Related Persons Name: KELLEE BARRAGAN Name: ANUEL PARKER Address: [address] [place] [address] Name: ANUEL GU Address: [address] [place] [address] Name: KELLEE PEÑA Address: [address] [place] [address]
--- OUTSIDE RECORDS SUMMARY | 2024-02-06 12:42 | XMS_ITS | Continuity of Care Document ---
Author Organization [facility] Address [address] [place] [address]- Care Team Providers Care Field Support Representative Name Role Phone Annette Castillo NP Primary Care Physician [phone] [facility] Date[facility]s): 06/02/20 - 07/02/20 [facility] [address] [place] [address]- Allergies, Adverse Reactions, Alerts Substance Reaction Severity [...] tablet, 3 Refills, Maintenance, 04/08/20 8:32:00 EST, [facility], 164, cm, 03/17/20 16:43:00 EST, Height, 76.3, kg, 03/12/20 13:32:00 EST, Dry Weight Start Date: 04/08/20 Status: Ordered baclofen 10 mg oral tablet 10 mg, 1, tablet, By Mouth, Daily at bedtime, TAKE 1 TABLET BY MOUTH EVERYDAY AT BEDTIME, # 90 tablet, Refills 0, Tot. Refills 0, Maintenance, 05/24/20 9:11:00 EST, Route to Pharmacy Electronically, [facility] #[id number], Partial fill upon patient req... Start Date: 05/24/20 Status: Ordered calcium (as carbonate)-vitamin D 500 mg-400 intl units oral tablet 1 tablet, By Mouth, 2 times a day, # 180 tablet, 1 Refills, Maintenance, 05/05/20 16:26:00 EST, Tablet, [facility] #[id number], 1 tablet By Mouth 2 times a day, 164, cm, 03/17/20 16:43:00 EST, Height,76.3, kg, 03/12/20 13:32:00 EST, Dry Weight Start Date: 05/05/20 Status: Ordered CeleBREX 200 mg oral capsule 1 capsule = 200 mg, By Mouth, 2 times a day, Until mail order is delivered, # 28 capsule, 0 Refills, Maintenance, 10/19/19 12:34:00 EDT, Capsule, [facility]/pharmacy #[id number], 158, cm, 09/30/19 10:10:00 EDT, [...] 0 Refills, Maintenance, 11/12/19 16:33:00 EDT, Capsule, [facility]/pharmacy #0993, 158, cm, 11/12/19 15:02:00 EDT, [...] 180 tablet, 0 Refills, 05/30/20 11:17:00 EST, [facility]/pharmacy #0993, 164, cm, 03/17/20 16:43:00 EST, Height, 76.3, kg, 03/12/20 13:32:00... Start Date: 05/30/20 Status: Ordered levothyroxine 0.088 mg oral tablet 1 tablet = 88 mcg, By Mouth, Daily, # 90 tablet, 1 Refills, Soft Stop, 03/07/20 15:20:00 EST, [facility] #[id number], 157.48, cm, 02/04/20 11:41:00 EDT, Height, 77.2, kg, 05/20/19 20:41:00 EST, Dry Weight Start Date: 03/07/20 Stop Date: 09/03/20 Status: Ordered Mirapex 1 mg oral tablet 1.5 tablet = 1.5 mg, By Mouth, 3 times a day, # 135 tablet, 4 Refills, Maintenance, 12/24/19 9:28:00 EDT, [id number], 158, cm, 11/12/19 15:02:00 EDT, Height, 77.2, [...] EDT, Route to Pharmacy Electronically, [facility] #[id number], 157.48, cm, 02/04/20 11:41:00 EDT, Height, 77.2, kg, 05/20/19 20:41:00 EST... Start Date: 02/23/20 Status: Ordered Zofran 4 mg oral tablet 1 tablet = 4 mg, By Mouth, Every 8 hours, PRN Nausea & Vomiting, # 10 tablet, 0 Refills, Maintenance, 03/13/20 9:49:00 EST, Tablet, [facility], Partial fill upon patient [...]
--- OUTSIDE RECORDS SUMMARY | 2024-02-06 12:42 | XMS_ITS | Continuity of Care Document ---
Author Organization [facility] Address [address] [place] [address]- Care Team Providers Care Dyeing Machine Back Tender Name Role Phone Annette Castillo NP Primary Care Physician [facility]): 07/02/22 - 08/01/22 [facility] [address] [place] [address]- Allergies, Adverse Reactions, Alerts Substance Reaction Severity [...] tetanus/diphtheria/pertussis, acel(Tdap) 12 09/29/07 Given 1Result Comment: [facility] [id number] 2Location History: pharmacy 3Location History: [facility] 4Admin Note: high dose done at [facility] 5Admin Note: immun records 6Admin Note: immun records 7Result Comment: [facility] 8Admin Note: immun records 9Admin Note: immun records 10Admin Note: immun records 11Admin Note: immun records 12Admin Note: immun records Medications Aspirin Low Dose 81 mg oral delayed release tablet 1 tablet, By Mouth, Daily, # 30 tablet, 2 Refills, Maintenance, 06/26/22 8:57:00 EST, [facility], 157.4, cm, 02/05/22 10:42:00 EDT, Height, 77.6, kg, 06/29/21 7:08:00 EST, Dry Weight Start Date: 06/26/22 Status: Ordered baclofen 10 mg oral tablet 1, tablet, By Mouth, Daily at bedtime, # 30 tablet, Refills 2, Maintenance, 07/26/22 7:37:00 EDT, Route to Pharmacy Electronically, [facility], 157.4, cm, 02/05/22 10:42:00 EDT, Height, 77.6, kg, 06/29/21 7:08:00 EST, Dry Weight Start Date: 07/26/22 Status: Ordered calcium (as carbonate)-vitamin D 500 mg-400 intl units oral tablet 1 tablet, By Mouth, 2 times a day, # 180 tablet, 3 Refills, Maintenance, 11/09/20 8:38:00 EDT, Tablet, [facility] #[id number], 1 tablet By Mouth 2 times a [...] 8:23:00 EST, 05/04/22 8:23:00 EST, [id number], LABS NEEDED FOR FURTHER REFILLS, 157.4, cm, [...] Refills, Maintenance, 02/26/22 15:10:00 EDT, [facility], 157.4, cm, 02/05/22 10:42:00 EDT, Height, 77.6, [...] EDT, Route to Pharmacy Electronically, [id number], 157.4, cm, 02/05/22 10:42:00 EDT, Height, 77.6, [...] Care Team Personnel Name: Angie Pope Position: [facility] Onco RN Member Role: Primary Care Nurse Name: Olga Brooke RN Position: [facility] RN Member Role: Primary Care Nurse Name: Annette Castillo NP Position: [facility] PCO Associate Professional Member Role: PCP Address: Address: [address] [place] [id number] Name: Grady Ortiz Position: [facility] Outreach Member Role: Lifetime Consulting Physician Address: Address: [address] [place] [address]- Care Team Related Persons Name: ANUEL PARKER Address: home [address] [place] [address] Name: KELLEE EPÑA Address: [address] [place] [address]
--- OUTSIDE RECORDS SUMMARY | 2024-02-06 12:42 | XMS_ITS | Continuity of Care Document ---
Author Organization [facility] Address [address] [place] [address]- Care Team Providers Care Braider Setter Name Role Phone Swapnil SANTAMARIA, Annette Primary Care Physician [phone] [facility]s): 12/04/19 - 01/03/20 [facility] [address] [place] [address]- [facility] Attending Physician: Miles Olea Admitting Physician: AdmMiles [...] EDT, Route to Pharmacy Electronically, [facility] #[id number], 158, cm, 11/12/19 15:02:00 EDT, Height, 77.2, kg, 05/20/19 20:41:00 EST, Dry Weight Start Date: 12/11/19 Stop Date: 03/10/20 Status: Ordered baclofen 10 mg oral tablet 10 mg, 1, tablet, By Mouth, Daily at bedtime, for 90 days, # 90 tablet, Refills 0, Tot. Refills 0, Physician Stop 03/10/20 8:40:00 EST, 12/11/19 8:40:00 EDT, Route to Pharmacy Electronically, [facility] #[id number], 158, cm, 11/12/19 15:02:00 EDT, [facility]... Start Date: 12/11/19 Stop Date: 03/10/20 Status: Ordered calcium (as carbonate)-vitamin D 500 mg-400 intl units oral tablet 1 tablet, By Mouth, 2 times a day, # 180 tablet, 1 Refills, Maintenance, 10/27/19 9:07:00 EDT, Tablet, [facility] #[id number], 1 tablet By Mouth 2 times a day, 158, cm, 09/30/19 10:10:00 EDT, Height, 77.2, kg, 05/20/19 20:41:00 EST, Dry Weight Start Date: 10/27/19 Status: Ordered CeleBREX 200 mg oral capsule 1 capsule = 200 mg, By Mouth, 2 times a day, Take with food to avoid upset stomach, # 180 capsule, 0 Refills, Maintenance, 10/19/19 12:33:00 EDT, Capsule, [facility] #[id number], 158, cm, 09/30/19 10:10:00 EDT, Height, 77.2, [...] capsule, Refills 0, Tot. Refills 0, Maintenance, 08/27/209:38:00 EDT, [facility] Start Date: 12/24/19 Stop Date: 03/23/20 Status: Ordered gabapentin 600 mg oral tablet See Instructions, TAKE 1 TABLET IN THE MORNING AND 1 TABLET AT BEDTIME. TAKE A 300MG CAPSULE IN THEMID-AFTERNOON, # 180 tablet, 0 Refills, 12/24/19 9:42:00 EDT, [id number], 158, cm, 11/12/19 15:02:00 EDT, Height, 77.2, kg, 05/20/19 20:41:0... Start Date: 12/24/19 Status: Ordered lactulose 10 gm/15 ml oral syrup 15 mL = 10 Gm, By Mouth, 2 times a day, PRN as needed for constipation, # 480 mL, 1 Refills, Maintenance, 07/27/19 12:04:00 EDT, Syrup, [facility]/pharmacy #[id number], 15 mL By Mouth 2 times [...] Refills, Maintenance, 12/24/19 9:28:00 EDT, [id number], 158, cm, 11/12/19 15:02:00 EDT, Height, 77.2, [...] 08/12/19 8:23:00 EDT, Route to Pharmacy Electronically, [facility]/pharmacy #[id number], 158, cm, 07/30/19 12:49:00 EDT, Height, [...]
--- OUTSIDE RECORDS SUMMARY | 2024-02-06 12:42 | XMS_ITS | Continuity of Care Document ---
Author Organization [facility] Adult Address [address] [place] [address]- Care Team Providers Care Knowledge Management Advisor Name Role Phone Annette Castillo NP Primary Care Physician [phone] Encounter [facility] Date(s): 11/09/20 - 11/16/20 [facility] [address] [place] [address]- Encounter Diagnosis Abnormal physical evaluation(Discharge Diagnosis) - 11/09/20 Medicare annual wellness visit, subsequent(Discharge Diagnosis) - 11/09/20 Hypothyroidism(Discharge Diagnosis) - 11/09/20 Lumbar spondylosis(Discharge Diagnosis) - 11/09/20 Mass of right thigh(Discharge Diagnosis) - 11/09/20 Coughing(Discharge Diagnosis) - 11/09/20 Excessive sputum(Discharge Diagnosis) - 11/09/20 Osteopenia(Discharge Diagnosis) - 11/09/20 Attending Physician: Annette Castillo NP Allergies, Adverse [...] [facility] 2Location History: [facility] 3Location History: [facility] 4Admin Note: high dose done at [facility] 5Admin Note: immun records 6Admin Note: immun records 7Admin Note: immun records 8Admin Note: immun records 9Admin Note: immun records 10Admin Note: immun records 11Admin Note: immun records Medications aspirin 81 mg oral delayed release tablet = 81 mg, By Mouth, Daily, # 30 tablet, 3 Refills, Maintenance, 11/07/20 15:07:00 EDT, [facility] #[id number], 157, cm, 09/07/20 14:26:00 EDT, Height, 76.3, kg, 03/12/20 13:32:00 EST, Dry Weight Start Date: 11/07/20 Status: Ordered baclofen 10 mg oral tablet 10 mg, 1, tablet, By Mouth, Daily at bedtime, TAKE 1 TABLET BY MOUTH EVERYDAY AT BEDTIME, # 90 tablet, Refills 0, Tot. Refills 0, Maintenance, 11/09/20 8:38:00 EDT, Route to Pharmacy Electronically, [facility] #[id number], Partial fill upon patient req... Start Date: 11/09/20 Stop Date: 02/07/21 Status: Ordered calcium (as carbonate)-vitamin D 500 mg-400 intl units oral tablet 1 tablet, By Mouth, 2 times a day, # 180 tablet, 3 Refills, Maintenance, 11/09/20 8:38:00 EDT, Tablet, [facility] #[id number], 1 tablet By Mouth 2 times a day,x90 days, 157.5, cm, 11/09/20 8:24:00 EDT, Height, 76.3, kg, 03/12/20 13:32:00 EST, Dry Weight Start Date: 11/09/20 Stop Date: 11/04/21 Status: Ordered CeleBREX 200 mg oral capsule 1 capsule = 200 mg, By Mouth, 2 times a day, Until mail order is delivered, # 28 capsule, 0 Refills, Maintenance, 10/19/19 12:34:00 EDT, Capsule, [facility]/pharmacy #0993, 158, cm, 09/30/19 10:10:00 [...] 0 Refills, Maintenance, 11/12/19 16:33:00 EDT, Capsule, [facility]/pharmacy #0993, 158, cm, 11/12/19 15:02:00 [...] tablet, 0 Refills, Maintenance, 09/27/20 14:38:00 EDT, [facility]/pharmacy #0993, 157, cm, 09/07/20 14:26:00 EDT, Height, 76.3, kg, 03/12... Start Date: 09/27/20 Status: Ordered ipratropium nasal 21 mcg/inh spray 2 sprays, Nares, Both, 2 times a day, for 30 days, # 1 each, 0 Refills, Acute 12/09/20 8:50:00 EDT,11/09/20 8:50:00 EDT, Helper, [facility]/pharmacy #0993, Partial fill upon patient request if the prescription is for a schedule II opioid drug., 2 sprays Nare... Start Date: 11/09/20 Stop Date: 12/09/20 Status: Ordered levothyroxine 0.088 mg oral tablet 1 tablet, By Mouth, Daily, # 30 tablet, 2 Refills, Maintenance, 09/09/20 8:28:00 EDT, [facility] #[id number], Rx resent from 09/05, 157, cm, 09/07/20 14:26:00 EDT, Height, 76.3, kg, 03/12/20 13:32:00 EST, Dry Weight Start Date: 09/09/20 Status: Ordered Mirapex 1 mg oral tablet 1.5 tablet = 1.5 mg, By Mouth, 3 times a day, # 135 tablet, 5 Refills, Maintenance, 09/09/20 8:27:00 EDT, [facility] #[id number], 157, cm, 09/07/20 14:26:00 EDT, Height, 76.3, [...] EDT, Route to Pharmacy Electronically, [facility][id number], 157, cm, 06/30/20 10:07:00 EST, Height, 76.3, kg, 03/12/20 13:32:00 EST, Dry We... Start Date: 08/05/20 Status: Ordered Zofran 4 mg oral tablet 1 tablet = 4 mg, By Mouth, Every 8 hours, PRN Nausea & Vomiting, # 10 tablet, 0 Refills, Maintenance, 03/13/20 9:49:00 EST, Tablet, [facility], Partial fill upon [...] Effective Dates Health Status Clinical Service Informant Abnormal physical evaluation Discharge Diagnosis 11/09/20 Medicare annual wellness visit, subsequent Discharge Diagnosis 11/09/20 Hypothyroidism Discharge Diagnosis 11/09/20 Lumbar spondylosis Discharge Diagnosis 11/09/20 Mass of right thigh Discharge Diagnosis 11/09/20 Coughing Discharge Diagnosis 11/09/20 Excessive sputum Discharge Diagnosis 11/09/20 Osteopenia Discharge Diagnosis 11/09/20 Vital Signs Most recent to oldest [Reference Range]: 1 Height 157.5 cm (11/09/20 8:24 AM) Weight 76.9 kg (11/09/20 8:24 AM) Oxygen Saturation [94-100 %] 97 % (11/09/20 8:24 AM) Pulse Rate [55-90 bpm] 71 bpm (11/09/20 8:24 AM) Body Mass Index [18.5-24.99] 31 *>HHI* (11/09/20 8:24 AM) Blood Pressure [90-138/55-84 mm Hg] 106/ 70mm Hg (11/09/20 8:24 AM) Temperature [96.8-100.4 DegF] 98.1 DegF (11/09/20 8:24 AM) Mode of Delivery (Oxygen) Room air (11/09/20 8:24 AM) Blood pressure sites Arm, left (11/09/20 8:24 AM) Temperature Route Oral (11/09/20 8:24 AM) Weight Obtained Via Standing scale (11/09/20 8:24 AM) Social History Social History Type Response Smoking Status Never (less than 100 in lifetime) entered on: 11/09/20 Sex
--- OUTSIDE RECORDS SUMMARY | 2024-02-06 12:42 | XMS_ITS | Continuity of Care Document ---
Author Organization [facility] Address [address] [place] [address]- Care Team Providers Care Retail Analyst Name Role Phone Annette Castillo NP Primary Care Physician [facility] Date[facility]s): 08/10/21 - 09/09/21 [facility] [address] [place] [address]- Allergies, Adverse Reactions, Alerts Substance Reaction Severity [...] [facility] 4Admin Note: high dose done at [facility] 5Admin Note: immun records 6Admin Note: immun records 7Admin Note: immun records 8Admin Note: immun records 9Admin Note: immun records 10Admin Note: immun records 11Admin Note: immun records Medications Aspirin Low Dose 81 mg oral delayed release tablet 1 tablet, By Mouth, Daily, # 30 tablet, 2 Refills, [facility] 41317, 157.5, cm, 03/13/21 9:05:00 EST, Height, 76.3, kg, 03/12/20 13:32:00 EST, Dry Weight Start Date: 06/26/21 Status: Ordered baclofen 10 mg oral tablet 1, tablet, By Mouth, Daily at bedtime, # 30 tablet, Refills 2, Route to Pharmacy Electronically, [facility], 157.4, cm, 06/29/21 7:08:00 EST, Height, 77.6, kg, 06/29/21 7:08:00 EST, Dry Weight Start Date: 07/26/21 Status: Ordered calcium (as carbonate)-vitamin D 500 mg-400 intl units oral tablet 1 tablet, By Mouth, 2 times a day, # 180 tablet, 3 Refills, Maintenance, 11/09/20 8:38:00 EDT, Tablet, [facility][id number], 1 tablet By Mouth 2 times a [...] # 30 tablet, 5 Refills, [facility], 157.5, cm, 03/13/21 9:05:00 EST, Height, 76.3, [...] # 135 tablet, 5 Refills, [facility], 157.4, cm, 08/10/21 9:43:00 EDT, Height, 77.6, [...] tablet, Refills 5, Route to Pharmacy Electronically, [facility] 8[facility]45, 157.4, cm, 06/29/21 7:08:00 EST, Height, 77.6, [...]
--- OUTSIDE RECORDS SUMMARY | 2024-02-06 12:42 | XMS_ITS | Continuity of Care Document ---
Author Organization [facility] Adult Address [address] [place] [address]- Care Team Providers Care Emergency Vehicle Operations Instructor Name Role Phone Annette Castillo NP Primary Care Physician [facility]/20 - 06/22/20 [facility] Adult [address] [place] [address]- Allergies, Adverse Reactions, Alerts Substance Reaction Severity [...] tablet, 3 Refills, Maintenance, 04/08/20 8:32:00 EST, [facility]378, 164, cm, 03/17/20 16:43:00 EST, Height, 76.3, kg, 03/12/20 13:32:00 EST, Dry Weight Start Date: 04/08/20 Status: Ordered baclofen 10 mg oral tablet 10 mg, 1, tablet, By Mouth, Daily at bedtime, TAKE 1 TABLET BY MOUTH EVERYDAY AT BEDTIME, # 90 tablet, Refills 0, Tot. Refills 0, Maintenance, 05/24/20 9:11:00 EST, Route to Pharmacy Electronically, [facility][id number], Partial fill upon patient req... Start Date: 05/24/20 Status: Ordered calcium (as carbonate)-vitamin D 500 mg-400 intl units oral tablet 1 tablet, By Mouth, 2 times a day, # 180 tablet, 1 Refills, Maintenance, 05/05/20 16:26:00 EST, Tablet, [facility][id number], 1 tablet By Mouth 2 times a day, 164, cm, 03/17/20 16:43:00 EST, Height,76.3, kg, 03/12/20 13:32:00 EST, Dry Weight Start Date: 05/05/20 Status: Ordered CeleBREX 200 mg oral capsule 1 capsule = 200 mg, By Mouth, 2 times a day, Until mail order is delivered, # 28 capsule, 0 Refills, Maintenance, 10/19/19 12:34:00 EDT, Capsule, [facility]/pharmacy #[id number], 158, cm, 09/30/19 10:10:00 EDT, [...] 0 Refills, Maintenance, 11/12/19 16:33:00 EDT, Capsule, [facility]/pharmacy #0993, 158, cm, 11/12/19 15:02:00 EDT, [...] 180 tablet, 0 Refills, 05/30/20 11:17:00 EST, [facility]/pharmacy #0993, 164, cm, 03/17/20 16:43:00 EST, Height, 76.3, kg, 03/12/20 13:32:00... Start Date: 05/30/20 Status: Ordered levothyroxine 0.088 mg oral tablet 1 tablet = 88 mcg, By Mouth, Daily, # 90 tablet, 1 Refills, Soft Stop, 03/07/20 15:20:00 EST, [facility] #[id number], 157.48, cm, 02/04/20 11:41:00 EDT, Height, 77.2, kg, 05/20/19 20:41:00 EST, Dry Weight Start Date: 03/07/20 Stop Date: 09/03/20 Status: Ordered Mirapex 1 mg oral tablet 1.5 tablet = 1.5 mg, By Mouth, 3 times a day, # 135 tablet, 4 Refills, Maintenance, 12/24/19 9:28:00 EDT, [facility] #[id number], 158, cm, 11/12/19 15:02:00 EDT, Height, 77.2, kg, 05/20/19 20:41:00 EST, Dry Weight Start Date: 12/24/19 Stop Date: 05/22/20 Status: Ordered MoviPrep oral powder for reconstitution 240 mL, By Mouth, Every 15 minutes, Dose #1 evening before colonoscopy and dose #2 is 6 hours before colonoscopy, # 1 each, 0 Refills, Acute 06/30/20 7:15:00 EST, 06/29/20 17:00:00 EST, REC Powder, [facility]/pharmacy #[id number], test date 06/30/20. please fill [...] 02/23/20 8:48:00 EDT, Route to Pharmacy Electronically, [facility] #[id number], 157.48, cm, 02/04/20 11:41:00 EDT, Height, 77.2, kg, 05/20/19 20:41:00 EST... Start Date: 02/23/20 Status: Ordered Zofran 4 mg oral tablet 1 tablet = 4 mg, By Mouth, Every 8 hours, PRN Nausea & Vomiting, # 10 tablet, 0 Refills, Maintenance, 03/13/20 9:49:00 EST, Tablet, [facility], Partial fill upon patient [...]
--- OUTSIDE RECORDS SUMMARY | 2024-02-06 12:42 | XMS_ITS | Continuity of Care Document ---
Author Organization [facility] Adult Address [address] [place] [address]- Care Team Providers Care Hybrid Technologist Name Role Phone Annette Castillo NP Primary Care Physician [facility]): 08/16/22 - 09/15/22 [facility] Adult [address] [place] [address]- Allergies, Adverse Reactions, Alerts Substance Reaction Severity [...] tetanus/diphtheria/pertussis, acel(Tdap) 12 09/29/07 Given 1Result Comment: [facility] [id number] 2Location History: pharmacy 3Location History: [facility] 4Admin Note: high dose done at [facility] 5Admin Note: immun records 6Admin Note: immun records 7Result Comment: [facility] 8Admin Note: immun records 9Admin Note: immun records 10Admin Note: immun records 11Admin Note: immun records 12Admin Note: immun records Medications Aspirin Low Dose 81 mg oral delayed release tablet 1 tablet, By Mouth, Daily, # 30 tablet, 2 Refills, Maintenance, 06/26/22 8:57:00 EST, [facility] 56256, 157.4, cm, 02/05/22 10:42:00 EDT, Height, 77.6, kg, 06/29/21 7:08:00 EST, Dry Weight Start Date: 06/26/22 Status: Ordered baclofen 10 mg oral tablet 1, tablet, By Mouth, Daily at bedtime, # 30 tablet, Refills 2, Maintenance, 07/26/22 7:37:00 EDT, Route to Pharmacy Electronically, [facility] 78162, 157.4, cm, 02/05/22 10:42:00 EDT, Height, 77.6, kg, 06/29/21 7:08:00 EST, Dry Weight Start Date: 07/26/22 Status: Ordered calcium (as carbonate)-vitamin D 500 mg-400 intl units oral tablet 1 tablet, By Mouth, 2 times a day, # 180 tablet, 3 Refills, Maintenance, 11/09/20 8:38:00 EDT, Tablet, [facility] #[id number], 1 tablet By Mouth 2 times a [...] Refills, Maintenance, 08/15/22 9:41:00 EDT, [facility], 157.4, cm, 02/05/22 10:42:00 EDT, Height, 77.6, kg, 06/29/21 7:08:00 EST, Dry Weight Start Date: 08/15/22 Status: Ordered levothyroxine 0.088 mg oral tablet 1 tablet, By Mouth, Daily, for 90 days, # 90 tablet, 3 Refills, Physician Stop 04/29/23 8:23:00 EST, 05/04/22 8:23:00 EST, [id number], LABS NEEDED FOR FURTHER REFILLS, 157.4, cm, [...] Refills, Maintenance, 02/26/22 15:10:00 EDT, [facility], 157.4, cm, 02/05/22 10:42:00 EDT, Height, 77.6, [...] EDT, Route to Pharmacy Electronically, [id number], 157.4, cm, 02/05/22 10:42:00 EDT, Height, 77.6, [...] Care Team Personnel Name: Angie Pope Position: [facility] Onco RN Member Role: Primary Care Nurse Name: Olga Brooke RN Position: [facility] RN Member Role: Primary Care Nurse Name: Annette Castillo NP Position: [facility] PCO Associate Professional Member Role: PCP Address: Address: [address] [place] [address] Name: Grady Ortiz Position: [facility] Outreach Member Role: Lifetime Consulting Physician Address: Address: [address] [place] [address] [facility] [address] [place] [address]- Care Team Related Persons Name: ANUEL PARKER Address: home [address] [place] [address] Name: KELLEE PEÑA Address: home [address] [place] [address]
--- OUTSIDE RECORDS SUMMARY | 2024-02-06 12:42 | XMS_ITS | Continuity of Care Document ---
Author Organization [facility] Adult Address [address] [place] [address]- Care Team Providers Care Technical Research Scientist Name Role Phone Annette Castillo NP Primary Care Physician [phone] [facility]): 11/09/20 - 12/09/20 [facility] Adult [address] [place] [address]- Allergies, Adverse Reactions, Alerts Substance Reaction Severity [...] [facility] 4Admin Note: high dose done at [facility] 5Admin Note: immun records 6Admin Note: immun records 7Admin Note: immun records 8Admin Note: immun records 9Admin Note: immun records 10Admin Note: immun records 11Admin Note: immun records Medications aspirin 81 mg oral delayed release tablet = 81 mg, By Mouth, Daily, # 30 tablet, 3 Refills, Maintenance, 11/07/20 15:07:00 EDT, [id number], 157, cm, 09/07/20 14:26:00 EDT, Height, 76.3, kg, 03/12/20 13:32:00 EST, Dry Weight Start Date: 11/07/20 Status: Ordered baclofen 10 mg oral tablet 10 mg, 1, tablet, By Mouth, Daily at bedtime, TAKE 1 TABLET BY MOUTH EVERYDAY AT BEDTIME, # 90 tablet, Refills 0, Tot. Refills 0, Maintenance, 11/09/20 8:38:00 EDT, Route to Pharmacy Electronically, [facility][id number], Partial fill upon patient req... Start Date: 11/09/20 Stop Date: 02/07/21 Status: Ordered calcium (as carbonate)-vitamin D 500 mg-400 intl units oral tablet 1 tablet, By Mouth, 2 times a day, # 180 tablet, 3 Refills, Maintenance, 11/09/20 8:38:00 EDT, Tablet, [facility][id number], 1 tablet By Mouth 2 times a [...] 30 sprays, 0 Refills, Acute, [facility], 30, SPRAY 2 SPRAYS INTO BOTH NOSTRILS 2 TIMES A DAY FOR 30 DAYS, 157.5, cm, 11/09/20 8:24:00 EDT, Height, 76.3, kg, 03/12/20... Start Date: 12/02/20 Status: Ordered levothyroxine 0.088 mg oral tablet 1 tablet, By Mouth, Daily, # 30 tablet, 5 Refills, Maintenance, 12/01/20 11:20:00 EDT, [facility], 157.5, cm, 11/09/20 8:24:00 EDT, Height, 76.3, kg, 03/12/20 13:32:00 EST, Dry Weight Start Date: 12/01/20 Status: Ordered Mirapex 1 mg oral tablet 1.5 tablet = 1.5 mg, By Mouth, 3 times a day, # 135 tablet, 5 Refills, Maintenance, 09/09/20 8:27:00 EDT, [id number], 157, cm, 09/07/20 14:26:00 EDT, Height, 76.3, [...] EDT, Route to Pharmacy Electronically, [facility] #[id number], 157, cm, 06/30/20 10:07:00 EST, Height, 76.3, kg, 03/12/20 13:32:00 EST, Dry We... Start Date: 08/05/20 Status: Ordered Zofran 4 mg oral tablet 1 tablet = 4 mg, By Mouth, Every 8 hours, PRN Nausea & Vomiting, # 10 tablet, 0 Refills, Maintenance, 03/13/20 9:49:00 EST, Tablet, [facility], Partial fill upon patient [...]
--- OUTSIDE RECORDS SUMMARY | 2024-02-06 12:43 | XMS_ITS | Continuity of Care Document ---
Author Organization [facility] Adult Address [address] [place] [address]- Care Team Providers Care Television News Video Editor Name Role Phone Swapnil SANTAMARIA, Annette Primary Care Physician [facility] 10/27/19 - 11/26/19 [facility] Adult [address] [place] [address]- [facility] Allergies, Adverse Reactions, Alerts Substance Reaction Severity [...] Replace Required Details, Route to Pharmacy Electronically, [facility] STORE 12005, 158, cm, 07/30/19 12:49:00 EDT, Height, 77.2, kg, 05/20/19 20:... Start Date: 08/19/19 Status: Ordered calcium (as carbonate)-vitamin D 500 mg-400 intl units oral tablet 1 tablet, By Mouth, 2 times a day, # 180 tablet, 1 Refills, Maintenance, 10/27/19 9:07:00 EDT, Tablet, [facility] #[id number], 1 tablet By Mouth 2 times a day, 158, cm, 09/30/19 10:10:00 EDT, Height, 77.2, kg, 05/20/19 20:41:00 EST, Dry Weight Start Date: 10/27/19 Status: Ordered CeleBREX 200 mg oral capsule 1 capsule = 200 mg, By Mouth, 2 times a day, Take with food to avoid upset stomach, # 180 capsule, 0 Refills, Maintenance, 10/19/19 12:33:00 EDT, Capsule, [facility] #[id number], 158, cm, 09/30/19 10:10:00 EDT, Height, 77.2, kg, 05/20/19 20:41:00 EST,... Start Date: 10/19/19 Stop Date: 01/17/20 Status: Ordered CeleBREX 200 mg oral capsule 1 capsule = 200 mg, By Mouth, 2 times a day, Until mail order is delivered, # 28 capsule, 0 Refills, Maintenance, 10/19/19 12:34:00 EDT, Capsule, [facility]/pharmacy #0993, 158, cm, 09/30/19 10:10:00 EDT, [...] 0 Refills, Maintenance, 11/12/19 16:33:00 EDT, Capsule, [facility]/pharmacy #0993, 158, cm, 11/12/19 15:02:00 EDT, [...] THEMID-AFTERNOON, # 180 tablet, 1 Refills, Maintenance, [facility] STORE 71345, 158, cm, 07/30/19 12:49:00 EDT, Height, 77.2, kg, 05/20/19 20:41:00 EST, Dry Weight Start Date: 08/12/19 Status: Ordered lactulose 10 gm/15 ml oral syrup 15 mL = 10 Gm, By Mouth, 2 times a day, PRN as needed for constipation, # 480 mL, 1 Refills, Maintenance, 07/27/19 12:04:00 EDT, Syrup, [facility]/pharmacy #0993, 15 mL By Mouth 2 [...] 08/12/19 8:23:00 EDT, Route to Pharmacy Electronically, [facility]/pharmacy #[id number], 158, cm, 07/30/19 12:49:00 EDT, [...]
--- OUTSIDE RECORDS SUMMARY | 2024-02-06 12:43 | XMS_ITS | Continuity of Care Document ---
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 Name Role Phone Annette Castillo NP Primary Care Physician [facility] Date[facility]s): 03/12/23 - 04/11/23 [facility] Adult [address] [place] [address]- Allergies, Adverse Reactions, Alerts Substance Reaction Severity [...] virus vaccine, inactivated 6 01/24/12 Gi shakira [id number] 12y+ bivalent booster vax 03/02/22 Recorded SARS-CoV-2 [...] tetanus/diphtheria/pertussis, acel(Tdap) 12 09/29/07 Given 1Result Comment: [facility] [id number] 2Location History: pharmacy 3Location History: [facility] 4Admin Note: high dose done at [facility] 5Admin Note: immun records 6Admin Note: immun records 7Result Comment: [facility] 8Admin Note: immun records 9Admin Note: immun records 10Admin Note: immun records 11Admin Note: immun records 12Admin Note: immun records Medications Aspirin Low Dose 81 mg oral delayed release tablet 1 tablet, By Mouth, Daily, # 30 tablet, 5 Refills, Maintenance, 10/16/22 7:11:00 EDT, [facility]/pharmacy #1972, 158, cm, 10/10/22 9:38:00 EDT, Height, 80.8, kg, 10/04/22 20:27:00 EDT, Dry Weight Start Date: 10/16/22 Status: Ordered baclofen 10 mg oral tablet 1, tablet, By Mouth, Daily at bedtime, # 90 tablet, Refills 1, Tot. Refills 1, Maintenance, 02/18/23 10:44:00 EDT, Route to Pharmacy Electronically, [facility]/pharmacy #1972, 156.5, cm, 02/18/23 10:06:00 [...] 3 Refills, Maintenance, 10/16/22 17:51:00 EDT, Tablet, [facility]/pharmacy #1972, 1 tablet By Mouth 2 times a day,x90 days, 158, cm, 10/10/22 9:38:00 EDT, Height, 80.8, kg, 10/04/22 20:27:00 EDT, Dry Weight Start Date: 10/16/22 Stop Date: 10/11/23 Status: Ordered gabapentin 600 mg oral tablet See Instructions, TAKE 1 TABLET BY MOUTH EVERY MORNING AND 1 TABLET EVERY NIGHT AT BEDTIME, # 60 tablet, 0 Refills, Maintenance, 03/12/23 15:33:00 EST, [facility]/pharmacy #1972, 156.5, cm, 02/18/23 10:06:00 EDT, Height, 77, kg, 02/04/23 0:27:00 EDT, Dry Weight Start Date: 03/12/23 Status: Ordered levothyroxine 0.088 mg oral tablet See Instructions, TAKE 1 TABLET BY MOUTH EVERY DAY, # 90 tablet, 1 Refills, Maintenance, 01/04/23 7:17:00 EDT, [facility], 158, cm, 10/10/22 9:38:00 EDT, Height, 80.8, kg, 10/04/22 20:27:00 EDT,Dry Weight Start Date: 01/04/23 Status: Ordered meloxicam 15 mg oral tablet 1 tablet = 15 mg, By Mouth, Daily, # 30 tablet, 0 Refills, Maintenance, 02/06/23 15:50:00 EDT, Tablet, [facility]/pharmacy #1972, Partial fill upon patient [...] 03/14/23 15:20:00 EST, Route to Pharmacy Electronically, [facility]/pharmacy #1972, 156.5, cm, 02/18/23 10:06:00 [...] Care Nurse Name: Olga Brooke RN Position: [facility] RN Member Role: Primary Care Nurse Name: Annette Castillo NP Position: [facility] PCO Associate Professional Member Role: PCP Address: Address: [address] [place] [address]- Name: Grady Ortiz Position: [facility] Outreach Member Role: Lifetime Consulting Physician Address: Address: [address] [place] [address]- Care Team Related Persons Name: KELLEE BARRAGAN Name: ANUEL PARKER Address: home [address] [place] [address] Name: ANUEL GU Address: home [address] [place] [address] Name: KELLEE PEÑA Address: home [address] [place] [address]
--- OUTSIDE RECORDS SUMMARY | 2024-02-06 12:43 | XMS_ITS | Continuity of Care Document ---
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 5Admin Note: immun records 6Admin Note: immun records 7Result Comment: [facility] 8Admin Note: immun records 9Admin Note: immun records 10Admin Note: immun records 11Admin Note: immun records 12Admin Note: immun records Medications Aspirin Low Dose 81 mg oral delayed release tablet 1 tablet, By Mouth, Daily, # 30 tablet, 2 Refills, Maintenance, 06/26/22 8:57:00 EST, [facility] ST[facility] 72947, 157.4, cm, 02/05/22 10:42:00 EDT, Height, 77.6, kg, 06/29/21 7:08:00 EST, Dry Weight Start Date: 06/26/22 Status: Ordered baclofen 10 mg oral tablet 1, tablet, By Mouth, Daily at bedtime, # 30 tablet, Refills 2, Maintenance, 07/26/22 7:37:00 EDT, Route to Pharmacy Electronically, [facility] 73658, 157.4, cm, 02/05/22 10:42:00 EDT, Height, 77.6, kg, 06/29/21 7:08:00 EST, Dry Weight Start Date: 07/26/22 Status: Ordered calcium (as carbonate)-vitamin D 500 mg-400 intl units oral tablet 1 tablet, By Mouth, 2 times a day, # 180 tablet, 3 Refills, Maintenance, 11/09/20 8:38:00 EDT, Tablet, [facility] #[id number], 1 tablet By Mouth 2 times a [...] BEDTIME, # 60 tablet, 0 Refills, Maintenance, 08/09/22 13:39:00 EDT, [id number], 157.4, cm, 02/05/22 10:42:00 EDT, Height, 77.6, kg, 06/29/21 7:08:00 EST, [facility]. Start Date: 08/09/22 Status: Ordered levothyroxine 0.088 mg oral tablet 1 tablet, By Mouth, Daily, for 90 days, # 90 tablet, 3 Refills, Physician Stop 04/29/23 8:23:00 EST, 05/04/22 8:23:00 EST, [facility], LABS NEEDED FOR FURTHER REFILLS, 157.4, cm, [...] Refills, Maintenance, 02/26/22 15:10:00 EDT, [facility], 157.4, cm, 02/05/22 10:42:00 EDT, Height, 77.6, [...] EDT, Route to Pharmacy Electronically, [facility][id number], 157.4, cm, 02/05/22 10:42:00 EDT, Height, 77.6, [...] Care Team Personnel Name: Angie Pope Position: [facility] Onco RN Member Role: Primary Care Nurse Name: Olga Brooke RN Position: [facility] RN Member Role: Primary Care Nurse Name: Annette Castillo NP Position: [facility] PCO Associate Professional Member Role: PCP Address: Address: [address] [place] [id number] Name: Grady Ortiz Position: [facility] Outreach Member Role: Lifetime Consulting Physician Address: Address: [address] [place] [address], [facility] [address] [place] [address]- Care Team Related Persons Name: ANUEL PARKER Address: home [address] [place] [address] Name: KELLEE PEÑA Address: home [address] [place] [address]
--- OUTSIDE RECORDS SUMMARY | 2024-02-06 12:43 | XMS_ITS | Continuity of Care Document ---
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 Refills 0, Maintenance, 08/14/20 8:41:00 EDT, Route to Pharmacy Electronically, [facility][id number], 158, cm, 11/12/19 15:02:00 EDT, Height, 77.2, kg, 05/20/19 20:41:00 EST, Dry Weight Start Date: 12/11/19 Stop Date: 03/10/20 Status: Ordered baclofen 10 mg oral tablet 10 mg, 1, tablet, By Mouth, Daily at bedtime, for 90 days, # 90 tablet, Refills 0, Tot. Refills 0, Physician Stop 03/10/20 8:40:00 EST, 12/11/19 8:40:00 EDT, Route to Pharmacy Electronically, [facility] #[id number], 158, cm, 11/12/19 15:02:00 EDT, [facility]... Start Date: 12/11/19 Stop Date: 03/10/20 Status: Ordered calcium (as carbonate)-vitamin D 500 mg-400 intl units oral tablet 1 tablet, By Mouth, 2 times a day, # 180 tablet, 1 Refills, Maintenance, 10/27/19 9:07:00 EDT, Tablet, [facility] #[id number], 1 tablet By Mouth 2 times a day, 158, cm, 09/30/19 10:10:00 EDT, Height, 77.2, kg, 05/20/19 20:41:00 EST, Dry Weight Start Date: 10/27/19 Status: Ordered CeleBREX 200 mg oral capsule 1 capsule = 200 mg, By Mouth, 2 times a day, Take with food to avoid upset stomach, # 180 capsule, 0 Refills, Maintenance, 10/19/19 12:33:00 EDT, Capsule, [facility] #[id number], 158, cm, 09/30/19 10:10:00 EDT, Height, 77.2, [...] 0 Refills, Maintenance, 11/12/19 16:33:00 EDT, Capsule, [facility]/pharmacy #0993, 158, cm, 11/12/19 15:02:00 [...] 0 Refills, 12/24/19 9:42:00 EDT, [facility] #[id number], 158, cm, 11/12/19 15:02:00 EDT, Height, 77.2, kg, 05/20/19 20:41:0... Start Date: 12/24/19 Status: Ordered lactulose 10 gm/15 ml oral syrup 15 mL = 10 Gm, By Mouth, 2 times a day, PRN as needed for constipation, # 480 mL, 1 Refills, Maintenance, 07/27/19 12:04:00 EDT, Syrup, [facility]/pharmacy #0993, 15 mL By Mouth [...] Refills, Maintenance, 12/24/19 9:28:00 EDT, [facility] #[id number], 158, cm, 11/12/19 15:02:00 EDT, Height, 77.2, [...] 08/12/19 8:23:00 EDT, Route to Pharmacy Electronically, [facility]/pharmacy #[id number], 158, cm, 07/30/19 12:49:00 [...]
--- OUTSIDE RECORDS SUMMARY | 2024-02-06 12:43 | XMS_ITS | Continuity of Care Document ---
Author Organization 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 [address] [place] [address]- Allergies, Adverse Reactions, Alerts Substance Reaction Severity [...] tetanus/diphtheria/pertussis, acel(Tdap) 12 09/29/07 Given 1Result Comment: [facility] [id number] 2Location History: pharmacy 3Location History: [facility] 4Admin Note: high dose done at [facility] 5Admin Note: immun records 6Admin Note: immun records 7Result Comment: [facility] 8Admin Note: immun records 9Admin Note: immun records 10Admin Note: immun records 11Admin Note: immun records 12Admin Note: immun records Medications Aspirin Low Dose 81 mg oral delayed release tablet 1 tablet, By Mouth, Daily, # 30 tablet, 5 Refills, Maintenance, 10/16/22 7:11:00 EDT, [facility]/pharmacy #1972, 158, cm, 10/10/22 9:38:00 EDT, Height, 80.8, kg, 10/04/22 20:27:00 EDT, Dry Weight Start Date: 10/16/22 Status: Ordered baclofen 10 mg oral tablet 1, tablet, By Mouth, Daily at bedtime, # 30 tablet, Refills 1, Tot. Refills 1, Maintenance, 10/16/22 13:33:00 EDT, Route to Pharmacy Electronically, [facility]/pharmacy #1972, 158, cm, 10/10/22 9:38:00 EDT,Height, 80.8, [...] Refills, Maintenance, 01/04/23 7:17:00 EDT, [facility], 158, cm, 10/10/22 9:38:00 EDT, Height, 80.8, kg, 10/04/22 20:27:00 EDT,Dry Weight Start Date: 01/04/23 Status: Ordered pramipexole 1 mg oral tablet 1.5 tablet, By Mouth, 3 times a day, # 135 tablet, 5 Refills, Maintenance, 09/18/22 8:41:00 EDT, [facility]/pharmacy #1972, 157.4, cm, 02/05/22 10:42:00 EDT, Height, [...] EDT, Route to Pharmacy Electronically, [id number], 157.4, cm, 02/05/22 10:42:00 EDT, Height, 77.6, [...] Care Team Personnel Name: Meri Popericia Position: [facility] Onco RN Member Role: Primary Care Nurse Name: Julissa Patel RN Position: [facility] RN Member Role: Primary Care Nurse Name: Boubacar Dumont RN Position: [facility] RN Member Role: Primary Care Nurse Name: Annette Castillo NP Position: [facility] PCO Associate Professional Member Role: PCP Address: Address: [address] [place] [address]- Name: Grady Ortiz Position: [facility] Outreach Member Role: Lifetime Consulting Physician Address: Address: [address] [place] [id number] Care Team Related Persons Name: ANUEL PARKER Address: home [address] [place] [address] Name: ANUEL GU Address: [address] [place] [address] Name: KELLEE PEÑA Address: home [address] [place] [address]
--- OUTSIDE RECORDS SUMMARY | 2024-02-06 12:43 | XMS_ITS | Continuity of Care Document ---
Author Organization [facility] Address [address] [place] [address]- Care Team Providers Care School Nurse Name Role Phone Annette Castillo NP Primary Care Physician [facility] Date[facility]): 06/12/21 - 07/12/21 [facility] [address] [place] [address]- [place] Allergies, Adverse Reactions, Alerts Substance Reaction [...] Mouth, Daily, # 30 tablet, 2 Refills, [facility] STORE 04776, 157.5, cm, 03/13/21 9:05:00 EST, Height, 76.3, kg, 03/12/20 13:32:00 EST, Dry Weight Start Date: 06/26/21 Status: Ordered baclofen 10 mg oral tablet 1, tablet, By Mouth, Daily at bedtime, # 30 tablet, Refills 2, Route to [facility]acy Electronically, [facility], 157.5, cm, 03/13/21 9:05:00 EST, Height, 76.3, kg, 03/12/20 13:32:00 EST, Dry Weight Start Date: 04/27/21 Status: Ordered calcium (as carbonate)-vitamin D 500 mg-400 intl units oral tablet 1 tablet, By Mouth, 2 times a day, # 180 tablet, 3 Refills, Maintenance, 11/09/20 8:38:00 EDT, Tablet, [id number], 1 tablet By Mouth 2 times a [...] # 30 tablet, 5 Refills, [facility], 157.5, cm, 03/13/21 9:05:00 EST, Height, 76.3, kg, 03/12/20 13:32:00 EST, Dry Weight Start Date: 05/25/21 Status: Ordered Multivitamin With Minerals By Mouth, 0 Refills, Maintenance Start Date: 04/02/11 Status: Ordered pramipexole 1 mg oral tablet 1.5 tablet, By Mouth, 3 times a day, # 135 tablet, 5 Refills, [facility], 157.5, cm, 11/09/20 8:24:00 EDT, Height, 76.3, [...] 5, Route to [facility]acy Electronically, [facility], 157.5, cm, 11/09/20 8:24:00 EDT, Height, 76.3, [...]
--- OUTSIDE RECORDS SUMMARY | 2024-02-06 12:43 | XMS_ITS | Continuity of Care Document ---
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 Trimmer Tailer Name Role Phone Annette Castillo NP Primary Care Physician [facility] Date[facility]s): 02/11/23 - 03/13/23 [facility] [address] [place] [address]- Allergies, Adverse Reactions, Alerts Substance Reaction Severity [...] virus vaccine, inactivated 6 01/24/12 Gi shakira [id number] 12y+ bivalent booster vax 03/02/22 Recorded SARS-CoV-2 [...] tetanus/diphtheria/pertussis, acel(Tdap) 12 09/29/07 Given 1Result Comment: [facility] [id number] 2Location History: pharmacy 3Location History: [facility] 4Admin Note: high dose done at [facility] 5Admin Note: immun records 6Admin Note: immun records 7Result Comment: [facility] 8Admin Note: immun records 9Admin Note: immun records 10Admin Note: immun records 11Admin Note: immun records 12Admin Note: immun records Medications Aspirin Low Dose 81 mg oral delayed release tablet 1 tablet, By Mouth, Daily, # 30 tablet, 5 Refills, Maintenance, 10/16/22 7:11:00 EDT, [facility]/pharmacy #1972, 158, cm, 10/10/22 9:38:00 EDT, Height, 80.8, kg, 10/04/22 20:27:00 EDT, Dry Weight Start Date: 10/16/22 Status: Ordered baclofen 10 mg oral tablet 1, tablet, By Mouth, Daily at bedtime, # 90 tablet, Refills 1, Tot. Refills 1, Maintenance, 02/18/23 10:44:00 EDT, Route to Pharmacy Electronically, [facility]/pharmacy #1972, 156.5, cm, 02/18/23 [...] 3 Refills, Maintenance, 10/16/22 17:51:00 EDT, Tablet, [facility]/pharmacy #1972, 1 tablet By [...] tablet, 0 Refills, Maintenance, 03/12/23 15:33:00 EST, [facility]/pharmacy #1972, 156.5, cm, 02/18/23 10:06:00 EDT, Height, 77, kg, 02/04/23 0:27:00 EDT, Dry Weight Start Date: 03/12/23 Status: Ordered levothyroxine 0.088 mg oral tablet See Instructions, TAKE 1 TABLET BY MOUTH EVERY DAY, # 90 tablet, 1 Refills, Maintenance, 01/04/23 7:17:00 EDT, [facility], 158, cm, 10/10/22 9:38:00 EDT, Height, 80.8, kg, 10/04/22 20:27:00 EDT,Dry Weight Start Date: 01/04/23 Status: Ordered meloxicam 15 mg oral tablet 1 tablet = 15 mg, By Mouth, Daily, # 30 tablet, 0 Refills, Maintenance, 02/06/23 15:50:00 EDT, Tablet, [facility]/pharmacy #1972, Partial fill upon patient request if the prescription is for a schedule II opioid drug., 158, cm, 02/06/23 15:24:00 EDT, Height,... Start Date: 02/06/23 Stop Date: 03/06/23 Status: Ordered pramipexole 1 mg oral tablet 1.5 tablet, By Mouth, 3 times a day, # 135 tablet, 5 Refills, Maintenance, 09/18/22 8:41:00 EDT, [facility]/pharmacy #1972, 157.4, cm, 02/05/22 [...] 02/05/23 3:59:00 EDT, Route to Pharmacy Electronically, [facility] STORE 49738, 158, cm, 02/04/23 0:27:00 EDT, Height, 77, [...] Care Nurse Name: Julissa Patel RN Position: [facility] RN Member Role: Primary Care Nurse Name: Olga Brooke RN Position: [facility] RN Member Role: Primary Care Nurse Name: Annette Castillo NP Position: [facility] PCO Associate Professional Member Role: PCP Address: Address: [address] [place] [address]- Name: Grady Ortiz Position: [facility] Outreach Member Role: Lifetime Consulting Physician Address: Address: [address] [place] [id number] Care Team Related Persons Name: KELELE BARRAGAN Name: ANUEL PARKER Address: [address] [place] [address] Name: ANUEL GU Address: [address] [place] [address] Name: KELLEE PEÑA Address: home [address] [place] [address]
--- OUTSIDE RECORDS SUMMARY | 2024-02-06 12:43 | XMS_ITS | Continuity of Care Document ---
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 Name Role Phone Annette Castillo NP Primary Care Physician [facility] Date[facility]s): 02/15/23 - 03/17/23 [facility] [address] [place] [address]- Allergies, Adverse Reactions, Alerts Substance Reaction Severity [...] virus vaccine, inactivated 6 01/24/12 Gi shakira [id number] 12y+ bivalent booster vax 03/02/22 Recorded SARS-CoV-2 [...] acel(Tdap) 12 09/29/07 Given 1Result Comment: [facility] [id number] 2Location History: pharmacy 3Location History: [facility] 4Admin Note: high dose done at [facility] 5Admin Note: immun records 6Admin Note: immun records 7Result Comment: [facility] 8Admin Note: immun records 9Admin Note: immun records 10Admin Note: immun records 11Admin Note: immun records 12Admin Note: immun records Medications Aspirin Low Dose 81 mg oral delayed release tablet 1 tablet, By Mouth, Daily, # 30 tablet, 5 Refills, Maintenance, 10/16/22 7:11:00 EDT, [facility]/pharmacy #1972, 158, cm, 10/10/22 9:38:00 EDT, Height, 80.8, kg, 10/04/22 20:27:00 EDT, Dry Weight Start Date: 10/16/22 Status: Ordered baclofen 10 mg oral tablet 1, tablet, By Mouth, Daily at bedtime, # 90 tablet, Refills 1, Tot. Refills 1, Maintenance, 02/18/23 10:44:00 EDT, Route to Pharmacy Electronically, [facility]/pharmacy #1972, 156.5, cm, 02/18/23 10:06:00 EDT, Height, [...] 3 Refills, Maintenance, 10/16/22 17:51:00 EDT, Tablet, [facility]/pharmacy #1972, 1 tablet By Mouth 2 times a day,x90 days, 158, cm, 10/10/22 9:38:00 EDT, Height, 80.8, kg, 10/04/22 20:27:00 EDT, Dry Weight Start Date: 10/16/22 Stop Date: 10/11/23 Status: Ordered gabapentin 600 mg oral tablet See Instructions, TAKE 1 TABLET BY MOUTH EVERY MORNING AND 1 TABLET EVERY NIGHT AT BEDTIME, # 60 tablet, 0 Refills, Maintenance, 03/12/23 15:33:00 EST, [facility]/pharmacy #1972, 156.5, cm, 02/18/23 10:06:00 EDT, Height, 77, kg, 02/04/23 0:27:00 EDT, Dry Weight Start Date: 03/12/23 Status: Ordered levothyroxine 0.088 mg oral tablet See Instructions, TAKE 1 TABLET BY MOUTH EVERY DAY, # 90 tablet, 1 Refills, Maintenance, 01/04/23 7:17:00 EDT, [facility], 158, cm, 10/10/22 9:38:00 EDT, Height, 80.8, kg, 10/04/22 20:27:00 EDT,Dry Weight Start Date: 01/04/23 Status: Ordered meloxicam 15 mg oral tablet 1 tablet = 15 mg, By Mouth, Daily, # 30 tablet, 0 Refills, Maintenance, 02/06/23 15:50:00 EDT, Tablet, [facility]/pharmacy #1972, Partial fill upon patient request if [...] 03/14/23 15:20:00 EST, Route to Pharmacy Electronically, [facility]/pharmacy #1972, 156.5, cm, 02/18/23 10:06:00 EDT, Height, [...] Care Team Personnel Name: Angie Pope Position: [facility] Onco RN Member Role: Primary Care Nurse Name: Julissa Patel RN Position: [facility] RN Member Role: Primary Care Nurse Name: Olga Brooke RN Position: [facility] RN Member Role: Primary Care Nurse Name: Annette Castillo NP Position: [facility] PCO Associate Professional Member Role: PCP Address: Address: [address] [place] [address]- Name: Grady Ortiz Position: [facility] Outreach Member Role: Lifetime Consulting Physician Address: Address: [address] [place] [address]- Care Team Related Persons Name: KELLEE BARRAGAN Name: ANUEL PARKER Address: [address] [place] [address] Name: ANUEL GU Address: [address] [place] [address] Name: KELLEE PEÑA Address: [address] [place] [address]
--- OUTSIDE RECORDS SUMMARY | 2024-02-06 12:43 | XMS_ITS | Continuity of Care Document ---
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 Role Phone Annette Castillo NP Primary Care Physician [place] [facility] - 09/12/20 [facility] [address] [place] [id number]- Encounter Diagnosis Rectal lump(Discharge Diagnosis) - 09/05/20 Thrombosed external hemorrhoid(Discharge Diagnosis) - 09/05/20 Rectal bleed(Discharge Diagnosis) - 09/05/20 Attending Physician: Not on Staff, Attending MD Referring Physician: Annette Castillo NP Allergies, [...] [facility] 2Location History: [facility] 3Location History: [facility] 4Admin Note: high dose done at [facility] 5Admin Note: immun records 6Admin Note: immun records 7Admin Note: immun records 8Admin Note: immun records 9Admin Note: immun records 10Admin Note: immun records 11Admin Note: immun records Medications aspirin 81 mg oral delayed release tablet = 81 mg, By Mouth, Daily, # 30 tablet, 3 Refills, Maintenance, 04/08/20 8:32:00 EST, [facility], 164, cm, 03/17/20 16:43:00 EST, Height, 76.3, kg, 03/12/20 13:32:00 EST, Dry Weight Start Date: 04/08/20 Status: Ordered baclofen 10 mg oral tablet 10 mg, 1, tablet, By Mouth, Daily at bedtime, TAKE 1 TABLET BY MOUTH EVERYDAY AT BEDTIME, # 90 tablet, Refills 0, Tot. Refills 0, Maintenance, 08/05/20 12:52:00 EDT, Route to Pharmacy Electronically,[facility] #[id number], Partial fill upon patient re... Start Date: 08/05/20 Status: Ordered calcium (as carbonate)-vitamin D 500 mg-400 intl units oral tablet 1 tablet, By Mouth, 2 times a day, # 180 tablet, 1 Refills, Maintenance, 05/05/20 16:26:00 EST, Tablet, [facility] #[id number], 1 tablet By Mouth 2 times a day, 164, cm, 03/17/20 16:43:00 EST, Height,76.3, kg, 03/12/20 13:32:00 EST, Dry Weight Start Date: 05/05/20 Status: Ordered CeleBREX 200 mg oral capsule 1 capsule = 200 mg, By Mouth, 2 times a day, Until mail order is delivered, # 28 capsule, 0 Refills, Maintenance, 10/19/19 12:34:00 EDT, Capsule, [facility]/pharmacy #[id number], 158, cm, 09/30/19 10:10:00 EDT, Height, [...] IN [facility], # 180 tablet, 0 Refills, 09/12/20 10:16:00 EDT, [id number], 157, cm, 09/07/20 14:26:00 EDT, Height, 76.3, kg, 03/12/20 13:32:... Start Date: 09/12/20 Status: Ordered levothyroxine 0.088 mg oral tablet 1 tablet, By Mouth, Daily, # 30 tablet, 2 Refills, Maintenance, 09/09/20 8:28:00 EDT, [facility][id number], Rx resent from 09/05, 157, cm, 09/07/20 14:26:00 EDT, Height, 76.3, kg, 03/12/20 13:32:00 EST, Dry Weight Start Date: 09/09/20 Status: Ordered Mirapex 1 mg oral tablet 1.5 tablet = 1.5 mg, By Mouth, 3 times a day, # 135 tablet, 5 Refills, Maintenance, 09/09/20 8:27:00 EDT, [facility][id number], 157, cm, 09/07/20 14:26:00 EDT, Height, 76.3, [...] EDT, Route to Pharmacy Electronically, [id number], 157, cm, 06/30/20 10:07:00 EST, Height, 76.3, kg, 03/12/20 13:32:00 EST, Dry We... Start Date: 08/05/20 Status: Ordered Zofran 4 mg oral tablet 1 tablet = 4 mg, By Mouth, Every 8 hours, PRN Nausea & Vomiting, # 10 tablet, 0 Refills, Maintenance, 03/13/20 9:49:00 EST, Tablet, [facility], Partial fill upon patient [...] Effective Dates Health Status Clinical Service Informant Rectal lump Discharge Diagnosis 09/05/20 Thrombosed external hemorrhoid Discharge Diagnosis 09/05/20 Rectal bleed Discharge Diagnosis 09/05/20 Vital Signs Most recent to oldest [Reference Range]: 1 Height 157 cm (09/05/20 11:25 AM) Weight 79.9 kg (09/05/20 11:25 AM) Oxygen Saturation [94-100 %] 97 % (09/05/20 11:25 AM) Pulse Rate [55-90 bpm] 76 bpm (09/05/20 11:25 AM) Body Mass Index [18.5-24.99] 32.42 *>HHI* (09/05/20 11:25 AM) Blood Pressure [90-138/55-84 mm Hg] 110/ 70mm Hg (09/05/20 11:25 AM) Respiratory Rate [16-30 br/min] 16 br/mi n (09/05/20 11:25 AM) Mode of Delivery (Oxygen) Room air (09/05/20 11:25 AM) Blood pressure sites Arm, right (09/05/20 11:25 AM) Weight Obtained Via Standing scale (09/05/20 11:25 AM) Social History Social History Type Response Smoking Status Former smoker; Type: Cigarettes; Tobacco use times per day: quit smoking 30 yrs ago; entered on: 06/25/15 Sex
--- OUTSIDE RECORDS SUMMARY | 2024-02-06 12:43 | XMS_ITS | Continuity of Care Document ---
Author Organization [facility] Address [address] [place] [address]- Care Team Providers Care Laboratory Sampler Name Role Phone Annette Castillo NP Primary Care Physician [facility] Date[facility]s): 08/14/22 - 09/13/22 [facility] [address] [place] [address]- Allergies, Adverse Reactions, Alerts Substance Reaction Severity [...] tetanus/diphtheria/pertussis, acel(Tdap) 12 09/29/07 Given 1Result Comment: [facility] [id number] 2Location History: pharmacy 3Location History: [facility] 4Admin Note: high dose done at [facility] 5Admin Note: immun records 6Admin Note: immun records 7Result Comment: [facility] 8Admin Note: immun records 9Admin Note: immun records 10Admin Note: immun records 11Admin Note: immun records 12Admin Note: immun records Medications Aspirin Low Dose 81 mg oral delayed release tablet 1 tablet, By Mouth, Daily, # 30 tablet, 2 Refills, Maintenance, 06/26/22 8:57:00 EST, [facility]60[facility], 157.4, cm, 02/05/22 10:42:00 EDT, Height, 77.6, kg, 06/29/21 7:08:00 EST, Dry Weight Start Date: 06/26/22 Status: Ordered baclofen 10 mg oral tablet 1, tablet, By Mouth, Daily at bedtime, # 30 tablet, Refills 2, Maintenance, 07/26/22 7:37:00 EDT, Route to Pharmacy Electronically, [facility] 34335, 157.4, cm, 02/05/22 10:42:00 EDT, Height, 77.6, kg, 06/29/21 7:08:00 EST, Dry Weight Start Date: 07/26/22 Status: Ordered calcium (as carbonate)-vitamin D 500 mg-400 intl units oral tablet 1 tablet, By Mouth, 2 times a day, # 180 tablet, 3 Refills, Maintenance, 11/09/20 8:38:00 EDT, Tablet, [facility] #[id number], 1 tablet By Mouth 2 times a [...] Refills, Maintenance, 08/15/22 9:41:00 EDT, [facility], 157.4, cm, 02/05/22 10:42:00 EDT, Height, 77.6, kg, 06/29/21 7:08:00 EST, Dry Weight Start Date: 08/15/22 Status: Ordered levothyroxine 0.088 mg oral tablet 1 tablet, By Mouth, Daily, for 90 days, # 90 tablet, 3 Refills, Physician Stop 04/29/23 8:23:00 EST, 05/04/22 8:23:00 EST, [id number], LABS NEEDED FOR FURTHER REFILLS, 157.4, cm, [...] Refills, Maintenance, 02/26/22 15:10:00 EDT, [facility], 157.4, cm, 02/05/22 10:42:00 EDT, Height, 77.6, [...] EDT, Route to Pharmacy Electronically, [facility], 157.4, cm, 02/05/22 10:42:00 EDT, Height, 77.6, [...] Associate Professional Member Role: PCP Address: Address: [address] [place] [address] Name: Grady Ortiz Position: [facility] Outreach Member Role: Lifetime Consulting Physician Address: Address: [address] [place] [address] [facility] [address] [place] [address]- Care Team Related Persons Name: ANUEL PARKER Address: [address] [place] [address] Name: KELLEE PEÑA Address: [address] [place] [address]
--- OUTSIDE RECORDS SUMMARY | 2024-02-06 12:43 | XMS_ITS | Continuity of Care Document ---
Author Organization [facility] Address [address] [place] [address]- Care Team Providers Care Cap Sizer Name Role Phone Annette Castillo NP Primary Care Physician [facility]s): 05/30/20 - 06/29/20 [facility] [address] [place] [address]- Allergies, Adverse Reactions, Alerts Substance Reaction Severity [...] tablet, 3 Refills, Maintenance, 04/08/20 8:32:00 EST, [facility], 164, cm, 03/17/20 16:43:00 EST, Height, 76.3, kg, 03/12/20 13:32:00 EST, Dry Weight Start Date: 04/08/20 Status: Ordered baclofen 10 mg oral tablet 10 mg, 1, tablet, By Mouth, Daily at bedtime, TAKE 1 TABLET BY MOUTH EVERYDAY AT BEDTIME, # 90 tablet, Refills 0, Tot. Refills 0, Maintenance, 05/24/20 9:11:00 EST, Route to Pharmacy Electronically, [facility] #[id number], Partial fill upon patient req... Start Date: 05/24/20 Status: Ordered calcium (as carbonate)-vitamin D 500 mg-400 intl units oral tablet 1 tablet, By Mouth, 2 times a day, # 180 tablet, 1 Refills, Maintenance, 05/05/20 16:26:00 EST, Tablet, [facility] #[id number], 1 tablet By Mouth 2 times a [...] 180 tablet, 0 Refills, 05/30/20 11:17:00 EST, [facility]/pharmacy #0993, 164, cm, 03/17/20 16:43:00 EST, Height, 76.3, kg, 03/12/20 13:32:00... Start Date: 05/30/20 Status: Ordered levothyroxine 0.088 mg oral tablet 1 tablet = 88 mcg, By Mouth, Daily, # 90 tablet, 1 Refills, Soft Stop, 03/07/20 15:20:00 EST, [facility] #[id number], 157.48, cm, 02/04/20 11:41:00 EDT, Height, 77.2, kg, 05/20/19 20:41:00 EST, Dry Weight Start Date: 03/07/20 Stop Date: 09/03/20 Status: Ordered Mirapex 1 mg oral tablet 1.5 tablet = 1.5 mg, By Mouth, 3 times a day, # 135 tablet, 4 Refills, Maintenance, 12/24/19 9:28:00 EDT, [facility] #[id number], 158, cm, 11/12/19 15:02:00 EDT, Height, 77.2, kg, 05/20/19 20:41:00 EST, Dry Weight Start Date: 12/24/19 Stop Date: 05/22/20 Status: Ordered MoviPrep oral powder for reconstitution 240 mL, By Mouth, Every 15 minutes, Dose #1 evening before colonoscopy and dose #2 is 6 hours before colonoscopy, # 1 each, 0 Refills, Acute 06/30/20 7:15:00 EST, 06/29/20 17:00:00 EST, REC Powder, [facility]/pharmacy #0993, test date 06/30/20. please [...] 02/23/20 8:48:00 EDT, Route to Pharmacy Electronically, [facility] #[id number], 157.48, cm, 02/04/20 11:41:00 EDT, Height, 77.2, kg, 05/20/19 20:41:00 EST... Start Date: 02/23/20 Status: Ordered Zofran 4 mg oral tablet 1 tablet = 4 mg, By Mouth, Every 8 hours, PRN Nausea & Vomiting, # 10 tablet, 0 Refills, Maintenance, 03/13/20 9:49:00 EST, Tablet, [facility], Partial fill upon patient request, [...]
--- OUTSIDE RECORDS SUMMARY | 2024-02-06 12:43 | XMS_ITS | Continuity of Care Document ---
Author Organization [facility] Address [address] [place] [address]- Care Team Providers Care Fender Finisher Name Role Phone Annette Castillo NP Primary Care Physician [place] [facility] [place] 06/[place] - 07/26/21 [facility] [address] [place] [id number]- Attending Physician: AdmMiles glez Admitting Physician: Admtr, Ar8 Referring Physician: Admtr, Ar8 Allergies, Adverse Reactions, [...] 01/24/12 Gi shakira Influenza Virus Vaccine (oldterm) 9/5/20 Recorde d Influenza Virus Vaccine (oldterm) 12/12/18 [...] [facility] 4Admin Note: high dose done at [facility] 5Admin Note: immun records 6Admin Note: immun records 7Admin Note: immun records 8Admin Note: immun records 9Admin Note: immun records 10Admin Note: immun records 11Admin Note: immun records Medications Aspirin Low Dose 81 mg oral delayed release tablet 1 tablet, By Mouth, Daily, # 30 tablet, 2 Refills, [facility] 17129, 157.5, cm, 03/13/21 9:05:00 EST, Height, 76.3, kg, 03/12/20 13:32:00 EST, Dry Weight Start Date: 06/26/21 Status: Ordered baclofen 10 mg oral tablet 1, tablet, By Mouth, Daily at bedtime, # 30 tablet, Refills 2, Route to Pharmacy Electronically, [facility], 157.4, cm, 06/29/21 7:08:00 EST, Height, 77.6, kg, 06/29/21 7:08:00 EST, Dry Weight Start Date: 07/26/21 Status: Ordered calcium (as carbonate)-vitamin D 500 mg-400 intl units oral tablet 1 tablet, By Mouth, 2 times a day, # 180 tablet, 3 Refills, Maintenance, 11/09/20 8:38:00 EDT, Tablet, [id number], 1 tablet By Mouth 2 times a [...] # 30 tablet, 5 Refills, [facility], 157.5, cm, 03/13/21 9:05:00 EST, Height, 76.3, kg, 03/12/20 13:32:00 EST, Dry Weight Start Date: 05/25/21 Status: Ordered Multivitamin With Minerals By Mouth, 0 Refills, Maintenance Start Date: 04/02/11 Status: Ordered pramipexole 1 mg oral tablet 1.5 tablet, By Mouth, 3 times a day, # 135 tablet, 5 Refills, [facility], 157.5, cm, 11/09/20 8:24:00 EDT, Height, 76.3, [...] 5, Route to Pharmacy Electronically, [facility], 157.4, cm, 06/29/21 7:08:00 EST, Height, 77.6, [...]
--- OUTSIDE RECORDS SUMMARY | 2024-02-06 12:43 | XMS_ITS | Continuity of Care Document ---
Author Organization [facility] Address [address] [place] [address] [address] [place] [address]- Care Team Providers Care Driver/Merchandiser Name Role Phone Annette Castillo NP Primary Care Physician [phone] [facility]): 09/15/20 - 10/15/20 [facility] [address] [place], [place] [address] Allergies, Adverse Reactions, Alerts Substance Reaction Severity [...] Refills, Maintenance, 04/08/20 8:32:00 EST, [facility], 164, cm, 03/17/20 16:43:00 EST, Height, 76.3, kg, 03/12/20 13:32:00 EST, Dry Weight Start Date: 04/08/20 Status: Ordered baclofen 10 mg oral tablet 10 mg, 1, tablet, By Mouth, Daily at bedtime, TAKE 1 TABLET BY MOUTH EVERYDAY AT BEDTIME, # 90 tablet, Refills 0, Tot. Refills 0, Maintenance, 08/05/20 12:52:00 EDT, Route to Pharmacy Electronically,[facility] #[id number], Partial fill upon patient re... Start Date: 08/05/20 Status: Ordered calcium (as carbonate)-vitamin D 500 mg-400 intl units oral tablet 1 tablet, By Mouth, 2 times a day, # 180 tablet, 1 Refills, Maintenance, 05/05/20 16:26:00 EST, Tablet, [facility] #[id number], 1 tablet By Mouth 2 times a [...] tablet, 0 Refills, Maintenance, 09/27/20 14:38:00 EDT, [facility]/pharmacy #0993, 157, cm, 09/07/20 14:26:00 EDT, Height, 76.3, kg, 03/12... Start Date: 09/27/20 Status: Ordered levothyroxine 0.088 mg oral tablet 1 tablet, By Mouth, Daily, # 30 tablet, 2 Refills, Maintenance, 09/09/20 8:28:00 EDT, [id number], Rx resent from 09/05, 157, cm, 09/07/20 14:26:00 EDT, Height, 76.3, kg, 03/12/20 13:32:00 EST, Dry Weight Start Date: 09/09/20 Status: Ordered Mirapex 1 mg oral tablet 1.5 tablet = 1.5 mg, By Mouth, 3 times a day, # 135 tablet, 5 Refills, Maintenance, 09/09/20 8:27:00 EDT, [facility] #[id number], 157, cm, 09/07/20 14:26:00 EDT, Height, 76.3, [...] EDT, Route to Pharmacy Electronically, [facility] #[id number], 157, cm, 06/30/20 10:07:00 EST, Height, 76.3, kg, 03/12/20 13:32:00 EST, Dry We... Start Date: 08/05/20 Status: Ordered Zofran 4 mg oral tablet 1 tablet = 4 mg, By Mouth, Every 8 hours, PRN Nausea & Vomiting, # 10 tablet, 0 Refills, Maintenance, 03/13/20 9:49:00 EST, Tablet, [facility], Partial fill upon [...]
--- OUTSIDE RECORDS SUMMARY | 2024-02-06 12:43 | XMS_ITS | Continuity of Care Document ---
Author Organization [facility] Adult Address [address] [place] [address]- Care Team Providers Care Outside Sales Name Role Phone Annette Castillo NP Primary Care Physician [phone] [facility] Date[facility]): 02/26/22 - 03/28/[address] [facility] Adult [address] [place] [address]- Allergies, Adverse Reactions, Alerts Substance Reaction Severity [...] 12 09/29/07 Given 1Result Comment: [facility] [id number] 2Location History: pharmacy 3Location History: [facility] 4Admin Note: high dose done at the [...] tablet, 2 Refills, Maintenance, 03/28/22 14:30:00 EST, [facility] STORE 91062, 157.4, cm, 02/05/22 10:42:00 EDT, Height, 77.6, kg, 06/29/21 7:08:00 EST, Dry Weight Start Date: 03/28/22 Status: Ordered baclofen 10 mg oral tablet 1, tablet, By Mouth, Daily at bedtime, # 30 tablet, Refills 2, Tot. Refills 2, Maintenance, 02/05/22 11:24:00 EDT, Route to Pharmacy Electronically, [id number], 157.4, cm, 02/05/22 10:42:00 EDT, Height, 77.6, kg, 06/29/21 7:08:00 EST, Dry W... Start Date: 02/05/22 Status: Ordered calcium (as carbonate)-vitamin D 500 mg-400 intl units oral tablet 1 tablet, By Mouth, 2 times a day, # 180 tablet, 3 Refills, Maintenance, 11/09/20 8:38:00 EDT, Tablet, [facility] #[id number], 1 tablet By Mouth 2 times a day,x90 days, 157.5, cm, 11/09/20 8:24:00 EDT, Height, 76.3, kg, 03/12/20 13:32:00 EST, Dry Weight Start Date: 11/09/20 Stop Date: 11/04/21 Status: Ordered CeleBREX 200 mg oral capsule 1 capsule = 200 mg, By Mouth, 2 times a day, Until mail order is delivered, # 28 capsule, 0 Refills, Maintenance, 10/19/19 12:34:00 EDT, Capsule, [facility]/pharmacy #0993, 158, cm, 09/30/19 10:10:00 EDT, [...] 0 Refills, Maintenance, 11/12/19 16:33:00 EDT, Capsule, [facility]/pharmacy #0993, 158, cm, 11/12/19 15:02:00 EDT, [...] BEDTIME, # 60 tablet, 0 Refills, Maintenance, 02/26/22 10:07:00 EDT, [facility], 157.4, cm, 02/05/22 10:42:00 EDT, Height, 77.6, kg, 06/29/21 7:08:00 EST, Dry W... Start Date: 02/26/22 Status: Ordered levothyroxine 0.088 mg oral tablet 1 tablet, By Mouth, Daily, # 30 tablet, 2 Refills, 02/05/22 11:24:00 EDT, [id number], LABS NEEDED FOR FURTHER REFILLS, 157.4, cm, 02/05/22 10:42:00 EDT, Height, 77.6, kg, 06/29/21 7:08:00 EST, Dry Weight Start Date: 02/05/22 Status: Ordered Multivitamin With Minerals By Mouth, 0 Refills, Maintenance Start Date: 04/02/11 Status: Ordered OYSTER SHELL CALCIUM-VIT D TAB OYSTER SHELL CALCIUM-VIT D TAB, 1, tablet, By Mouth, 2 times a day, # 60 tablet, 5 Refills, 157.4, cm, 08/10/21 9:43:00 EDT, Height, 77.6, kg, 06/29/21 7:08:00 EST, Dry Weight Start Date: 11/17/21 Status: Ordered pramipexole 1 mg oral tablet 1.5 tablet, By Mouth, 3 times a day, # 135 tablet, 5 Refills, Maintenance, 02/26/22 15:10:00 EDT, [facility], 157.4, cm, 02/05/22 10:42:00 EDT, Height, 77.6, [...] Replace Required Details, Route to Pharmacy Electronically, [facility], 157.4, cm, 02/05/22 10:42:00 EDTDarlene Start Date: 03/28/22 Status: Ordered Problem List [...] Care Team Personnel Name: Angie Pope Position: [facility] Onco RN Member Role: Primary Care Nurse Name: Olga Brooke RN Position: [facility] RN Member Role: Primary Care Nurse Name: Annette Castillo NP Position: [facility] PCO Associate Professional Member Role: PCP Address: Address: [address] [place] [address]- Name: Grady Ortiz Position: [facility] Outreach Member Role: Lifetime Consulting Physician Address: Address: [address] [place] [address]- Care Team Related Persons Name: ANUEL PARKER Address: home [address] [place] [address] Name: KELLEE PEÑA Address: home [address] [place] [address]
--- OUTSIDE RECORDS SUMMARY | 2024-02-06 12:43 | XMS_ITS | Continuity of Care Document ---
Author Organization [facility] Address [address] [place] [address]- Care Team Providers Care Panelbeater Name Role Phone Annette Castillo NP Primary Care Physician [phone] [facility] Date(s): 07/19/20 - 08/18/20 [facility] [address] [place] [address]- Attending Physician: Miles Olea Admitting Physician: Miles [...] [facility] 3Admin Note: high dose done at [facility] 4Admin Note: immun records 5Admin Note: immun records 6Admin Note: immun records 7Admin Note: immun records 8Admin Note: immun records 9Admin Note: immun records 10Admin Note: immun records Medications aspirin 81 mg oral delayed release tablet = 81 mg, By Mouth, Daily, # 30 tablet, 3 Refills, Maintenance, 04/08/20 8:32:00 EST, [facility], 164, cm, 03/17/20 16:43:00 EST, Height, 76.3, kg, 03/12/20 13:32:00 EST, Dry Weight Start Date: 04/08/20 Status: Ordered baclofen 10 mg oral tablet 10 mg, 1, tablet, By Mouth, Daily at bedtime, TAKE 1 TABLET BY MOUTH EVERYDAY AT BEDTIME, # 90 tablet, Refills 0, Tot. Refills 0, Maintenance, 08/05/20 12:52:00 EDT, Route to Pharmacy Electronically[id number], Partial fill upon patient re... Start Date: 08/05/20 Status: Ordered calcium (as carbonate)-vitamin D 500 mg-400 intl units oral tablet 1 tablet, By Mouth, 2 times a day, # 180 tablet, 1 Refills, Maintenance, 05/05/20 16:26:00 EST, Tablet, [facility] #[id number], 1 tablet By Mouth 2 times a day, 164, cm, 03/17/20 16:43:00 EST, Height,76.3, kg, 03/12/20 13:32:00 EST, Dry Weight Start Date: 05/05/20 Status: Ordered CeleBREX 200 mg oral capsule 1 capsule = 200 mg, By Mouth, 2 times a day, Until mail order is delivered, # 28 capsule, 0 Refills, Maintenance, 10/19/19 12:34:00 EDT, Capsule, [facility]/pharmacy #[id number], 158, cm, 09/30/19 [...] 0 Refills, Maintenance, 11/12/19 16:33:00 EDT, Capsule, [facility]/pharmacy #0993, 158, cm, 11/12/19 15:02:00 [...] 180 tablet, 0 Refills, 05/30/20 11:17:00 EST, [facility]/pharmacy #[id number], 164, cm, 03/17/20 16:43:00 EST, Height, 76.3, kg, 03/12/20 13:32:00... Start Date: 05/30/20 Status: Ordered levothyroxine 0.088 mg oral tablet 1 tablet = 88 mcg, By Mouth, Daily, # 90 tablet, 1 Refills, Soft Stop, 03/07/20 15:20:00 EST, [facility] #[id number], 157.48, cm, 02/04/20 11:41:00 EDT, Height, 77.2, kg, 05/20/19 20:41:00 EST, Dry Weight Start Date: 03/07/20 Stop Date: 09/03/20 Status: Ordered Mirapex 1 mg oral tablet 1.5 tablet = 1.5 mg, By Mouth, 3 times a day, # 135 tablet, 4 Refills, Maintenance, 12/24/19 9:28:00 EDT, [facility] #[id number], 158, cm, 11/12/19 15:02:00 EDT, Height, 77.2, [...] EDT, Route to Pharmacy Electronically, [facility] #[id number], 157, cm, 06/30/20 10:07:00 EST, Height, 76.3, kg, 03/12/20 13:32:00 EST, Dry We... Start Date: 08/05/20 Status: Ordered Zofran 4 mg oral tablet 1 tablet = 4 mg, By Mouth, Every 8 hours, PRN Nausea & Vomiting, # 10 tablet, 0 Refills, Maintenance, 03/13/20 9:49:00 EST, Tablet, [facility], Partial fill upon [...]
--- OUTSIDE RECORDS SUMMARY | 2024-02-06 12:43 | XMS_ITS | Continuity of Care Document ---
Author Organization [facility] Address [address] [place] [address]- Care Team Providers Care Hand Patcher Name Role Phone Annette Castillo NP Primary Care Physician Encounter [facility] Date(s): 02/03/23 - 02/04/[address] [address]- Encounter Diagnosis back pain(Final) - 02/03/23 Discharge Disposition: A-D/C Home Attending Physician: Antoine Middleton MD Admitting Physician: Antoine Middleton MD Referring Physician: Not on Staff, Referring [...] tetanus/diphtheria/pertussis, acel(Tdap) 12 09/29/07 Given 1Result Comment: [facility] [id number] 2Location History: pharmacy 3Location History: [facility] 4Admin Note: high dose done at [facility] 5Admin Note: immun records 6Admin Note: immun records 7Result Comment: [facility] 8Admin Note: immun records 9Admin Note: immun records 10Admin Note: immun records 11Admin Note: immun records 12Admin Note: immun records Medications Aspirin Low Dose 81 mg oral delayed release tablet 1 tablet, By Mouth, Daily, # 30 tablet, 5 Refills, Maintenance, 10/16/22 7:11:00 EDT, [facility]/pharmacy #1972, 158, cm, 10/10/22 9:38:00 EDT, Height, 80.8, kg, 10/04/22 20:27:00 EDT, Dry Weight Start Date: 10/16/22 Status: Ordered baclofen 10 mg oral tablet 1, tablet, By Mouth, Daily at bedtime, # 30 tablet, Refills 1, Tot. Refills 1, Maintenance, 10/16/22 13:33:00 EDT, Route to Pharmacy Electronically, [facility]/pharmacy #1972, 158, cm, 10/10/22 9:38:00 EDT,Height, 80.8, [...] Date: 10/16/22 Stop Date: 10/11/23 Status: Ordered Dilaudid Inj 0.5 mg, Injection, IV Push Slowly, Once, STAT, 02/03/23 21:38:00 EDT, Stop date 02/03/23 21:38:00 EDT Start Date: 02/03/23 Stop Date: 02/03/23 Status: Completed gabapentin 600 mg oral tablet [...] tablet, 0 Refills, Maintenance, 12/27/22 14:26:00 EDT, [facility]/pharmacy #1972, 158, cm, 10/10/22 9:38:00 EDT, Height, 80.8, kg, 10/04/22 20:27:00 EDT, Dry Weight Start Date: 12/27/22 Status: Ordered levothyroxine 0.088 mg oral tablet See Instructions, TAKE 1 TABLET BY MOUTH EVERY DAY, # 90 tablet, 1 Refills, Maintenance, 01/04/23 7:17:00 EDT, [facility], 158, cm, 10/10/22 9:38:00 EDT, Height, 80.8, [...] 02/07/23 0:03:00 EDT, 02/04/23 0:03:00 EDT, Tablet, [facility], Partial fill upon patient request if the prescription i... Start Date: 02/04/23 Stop Date: 02/07/23 Status: Ordered traZODone 100 mg oral tablet 1, tablet, By Mouth, Daily at bedtime, # 30 tablet, Refills 5, Tot. Refills 5, Maintenance, 07/25/22 16:33:00 EDT, Route to Pharmacy Electronically, [id number], 157.4, cm, 02/05/22 10:42:00 EDT, Height, 77.6, [...] Exam Date Time Procedure Performing Provider Status 02/03/23 11:27 PM Lumbar Spine 2 or 3 Views Pita Li; Auth (Verified) Notes: (Lumbar Spine 2 or 3 Views) Reason For Exam: low back pain after heavy lifting 48 hours ago;Pain RESULT: Lumbar Spine 2 or 3 Views Lumbar Spine 2 or 3 Views CLINICAL INDICATION: Hx of Present Illness: LBP, pt sts she was lifting a generator or two with herhusband, now has increased low bacl pain, unable to sit; Reason: Pain; low back pain after heavy lifting 48 hours ago; Clinical Question(s): Fracture Dislocation COMPARISONS: None TECHNIQUE: AP, lateral, and coned down LS junction views were obtained. FINDINGS: There are 5 nonrib-bearing lumbar type vertebra. Lumbar vertebral body heights are maintained. There is no frankie-or retrolisthesis. Mild loss of disc space height at all levels. No lumbar spine fracture. Right upper quadrant clips compatible with cholecystectomy. IMPRESSION: No lumbar spine fracture. Mild degenerative disc space narrowing throughout the lumbar spine. WSN: [id number] Ordering Physician: Antoine Middleton Dictated By: Colt LEWIS, Antoine Cuevas Dictated Date/Time: 02/03/23 11:30 p Reviewed By: Antoine Gregory MD Signed By: Antoine Gregory MD Signed Date/Time: 02/03/23 11:30 pm Transcribed By: LAYA Transcribed Date/Time: 02/03/23 11:29 pm Vital Signs Most recent to oldest [Reference Range]: 1 2 3 Height 158 cm (02/04/23 12:27 AM) 158 cm (02/03/23 10:32 PM) 158 cm (02/03/23 4:23 PM) Oxygen Saturation [94-100 %] 96 % (02/04/23 12: AM) 97 % (02/03/23 10:32 PM) 98 % (02/03/23 4:23 PM) Pulse Rate [55-90 bpm] 55 bpm (02/04/23 12:27 AM) 69 bpm (02/03/23 10:32 PM) 74 bpm (02/03/23 4:23 PM) Blood Pressure [90-138/55-84 mm Hg] 102/44mm Hg (02/04/23 12:27 AM) 117/83mm Hg (02/03/23 10:32 PM) 127/78mm Hg (02/03/23 4:23 PM) Respiratory Rate [16-30 br/min] 20 br/min (02/04/23 12:27 AM) 20 br/min (02/03/23 10:39 PM) 18 br/min (02/03/23 10:32 PM) Temperature [96.8-100.4 DegF] 98.5 DegF (02/04/23 12:27 AM) 98.1 DegF (02/03/23:23 PM) Mode of Delivery (Oxygen) Room air (02/04/23 12:27 AM) Room air (02/03/23 10:32 PM) Room air (02/03/23 4:23 PM) Blood pressure sites Arm, right (02/04/23 12:27 AM) Arm, right (02/03/23 10:32 PM) Arm, left (02/03/23 4:23 PM) Temperature Route Oral (02/04/23 12:27 AM) Oral (02/03/23 4:23 PM) Dry Weight 77 kg (02/04/23 12:27 AM) 77 kg (02/03/23 10:32 PM) 77 kg (02/03/23 4:23 PM) Dry Weight Obtained Via Patient/family s tated (02/03/23 4:23 PM) Social History Social History Type Response Smoking Status Never (less than 100 in lifetime) entered on: 11/09/20 Sex Patient Care team information Care Team Personnel Name: Niko Angie Position: [facility] Onco RN Member Role: Primary Care Nurse Name: Julissa Patel RN Position: [facility] RN Member Role: Primary Care Nurse Name: Boubacar Dumont RN Position: [facility] RN Member Role: Primary Care Nurse Name: Olga Brooke RN Position: [facility] RN Member Role: Primary Care Nurse Name: Annette Castillo NP Position: [facility] PCO Associate Professional Member Role: PCP Address: Address: [address] [place] [id number] Name: Grady Ortiz Position: [facility] Outreach Member Role: Lifetime Consulting Physician Address: Address: [address] [place] [address]- Name: Antoine Middleton MD Position: [facility] ED Medicine MD Member Role: ED Attending Physician Address: Address: [address] [place] [address] [place] [address]- Name: Jessica Ashley RN Position: [facility] ED RN W/OE and Tasks Name: Nitin Rob Position: [facility] Associate Professional Member Role: ED Physician Sales Counselor Address: Address: [address] [place] [address] [place] [address] Name: Teressa Salazar Position: [facility] ED TA [facility] Member Role: City Planner Care Team Related Persons Name: KELLEE BARRAGAN Name: ANUEL PARKER Address: home [address] [place] [address] Name: ANUEL GU Address: [address] [place], [place] Name: KELLEE PEÑA Address: [address] [place] [address]
--- OUTSIDE RECORDS SUMMARY | 2024-02-06 12:43 | XMS_ITS | Continuity of Care Document ---
Author Organization [facility] Adult Address [address] [place] [address]- Care Team Providers Care Rivet Sorter Name Role Phone Annette Castillo NP Primary Care Physician [phone] [facility] Date[facility]s): 02/22/23 - 03/24/23 [facility] Adult [address] [place] [address]- Allergies, Adverse Reactions, Alerts Substance Reaction Severity [...] virus vaccine, inactivated 6 01/24/12 Gi shakira [id number] 12y+ bivalent booster vax 03/02/22 Recorded SARS-CoV-2 [...] Given 1Result Comment: [facility] [id number] 2Location History: pharmacy 3Location History: [facility] 4Admin Note: high dose done at [facility] 5Admin Note: immun records 6Admin Note: immun records 7Result Comment: [facility] 8Admin Note: immun records 9Admin Note: immun records 10Admin Note: immun records 11Admin Note: immun records 12Admin Note: immun records Medications Aspirin Low Dose 81 mg oral delayed release tablet 1 tablet, By Mouth, Daily, # 30 tablet, 5 Refills, Maintenance, 10/16/22 7:11:00 EDT, [facility]/pharmacy #1972, 158, cm, 10/10/22 9:38:00 EDT, Height, 80.8, kg, 10/04/22 20:27:00 EDT, Dry Weight Start Date: 10/16/22 Status: Ordered baclofen 10 mg oral tablet 1, tablet, By Mouth, Daily at bedtime, # 90 tablet, Refills 1, Tot. Refills 1, Maintenance, 02/18/23 10:44:00 EDT, Route to Pharmacy Electronically, [facility]/pharmacy #1972, 156.5, cm, 02/18/23 10:06:00 EDT, [...] 3 Refills, Maintenance, 10/16/22 17:51:00 EDT, Tablet, [facility]/pharmacy #1972, 1 tablet By Mouth 2 times a day,x90 days, 158, cm, 10/10/22 9:38:00 EDT, Height, 80.8, kg, 10/04/22 20:27:00 EDT, Dry Weight Start Date: 10/16/22 Stop Date: 10/11/23 Status: Ordered gabapentin 600 mg oral tablet See Instructions, TAKE 1 TABLET BY MOUTH EVERY MORNING AND 1 TABLET EVERY NIGHT AT BEDTIME, # 60 tablet, 0 Refills, Maintenance, 03/12/23 15:33:00 EST, [facility]/pharmacy #1972, 156.5, cm, 02/18/23 10:06:00 EDT, Height, 77, kg, 02/04/23 0:27:00 EDT, Dry Weight Start Date: 03/12/23 Status: Ordered levothyroxine 0.088 mg oral tablet See Instructions, TAKE 1 TABLET BY MOUTH EVERY DAY, # 90 tablet, 1 Refills, Maintenance, 01/04/23 7:17:00 EDT, [facility], 158, cm, 10/10/22 9:38:00 EDT, Height, 80.8, kg, 10/04/22 20:27:00 EDT,Dry Weight Start Date: 01/04/23 Status: Ordered meloxicam 15 mg oral tablet 1 tablet = 15 mg, By Mouth, Daily, # 30 tablet, 0 Refills, Maintenance, 02/06/23 15:50:00 EDT, Tablet, [facility]/pharmacy #1972, Partial fill upon patient request [...] 03/14/23 15:20:00 EST, Route to Pharmacy Electronically, [facility]/pharmacy #1972, 156.5, cm, 02/18/23 10:06:00 EDT, [...] Care Team Personnel Name: Angie Pope Position: [facility] Onco RN Member Role: Primary Care Nurse Name: Julissa Patel RN Position: [facility] RN Member Role: Primary Care Nurse Name: Olga Brooke RN Position: [facility] RN Member Role: Primary Care Nurse Name: Annette Castillo NP Position: [facility] PCO Associate Professional Member Role: PCP Address: Address: [address] [place] [address]- Name: Grady Ortiz Position: [facility] Outreach Member Role: Lifetime Consulting Physician Address: Address: [address] [place] [address]- Care Team Related Persons Name: KELLEE BARRAGAN Name: ANUEL PARKER Address: [address] [place] [address] Name: ANUEL GU Address: [address] [place] [address] Name: KELLEE PEÑA Address: home [address] [place] [address]
--- OUTSIDE RECORDS SUMMARY | 2024-02-06 12:43 | XMS_ITS | Continuity of Care Document ---
Author Organization [facility] Adult Address [address] [place] [address]- Care Team Providers Care Mold Tooling Technician Name Role Phone Annette Castillo NP Primary Care Physician [phone] [facility] Date(s): 12/24/19 - 01/23/20 [facility] Adult [address] [place] [address]- [facility] Allergies, Adverse Reactions, Alerts Substance [...] EDT, Route to Pharmacy Electronically, [facility] #[id number], 158, cm, 11/12/19 15:02:00 EDT, Height, 77.2, kg, 05/20/19 20:41:00 EST, Dry Weight Start Date: 12/11/19 Stop Date: 03/10/20 Status: Ordered baclofen 10 mg oral tablet 10 mg, 1, tablet, By Mouth, Daily at bedtime, for 90 days, # 90 tablet, Refills 0, Tot. Refills 0, Physician Stop 03/10/20 8:40:00 EST, 12/11/19 8:40:00 EDT, Route to Pharmacy Electronically, [facility] #[id number], 158, cm, 11/12/19 15:02:00 EDT, [facility]... Start Date: 12/11/19 Stop Date: 03/10/20 Status: Ordered calcium (as carbonate)-vitamin D 500 mg-400 intl units oral tablet 1 tablet, By Mouth, 2 times a day, # 180 tablet, 1 Refills, Maintenance, 10/27/19 9:07:00 EDT, Tablet, [id number], 1 tablet By Mouth 2 times a day, 158, cm, 09/30/19 10:10:00 EDT, Height, 77.2, kg, 05/20/19 20:41:00 EST, Dry Weight Start Date: 10/27/19 Status: Ordered CeleBREX 200 mg oral capsule 1 capsule = 200 mg, By Mouth, 2 times a day, Take with food to avoid upset stomach, # 180 capsule, 0 Refills, Maintenance, 10/19/19 12:33:00 EDT, Capsule, [facility] #[id number], 158, cm, 09/30/19 10:10:00 EDT, Height, 77.2, [...] 0 Refills, 12/24/19 9:42:00 EDT, [id number], 158, cm, 11/12/19 15:02:00 EDT, Height, 77.2, kg, 05/20/19 20:41:0... Start Date: 12/24/19 Status: Ordered lactulose 10 gm/15 ml oral syrup 15 mL = 10 Gm, By Mouth, 2 times a day, PRN as needed for constipation, # 480 mL, 1 Refills, Maintenance, 07/27/19 12:04:00 EDT, Syrup, [facility]/pharmacy #0993, 15 mL By Mouth 2 [...] Refills, Maintenance, 12/24/19 9:28:00 EDT, [id number], 158, cm, 11/12/19 15:02:00 EDT, Height, 77.2, [...] 08/12/19 8:23:00 EDT, Route to Pharmacy Electronically, [facility]/pharmacy #[id number], 158, cm, 07/30/19 12:49:00 [...]
--- OUTSIDE RECORDS SUMMARY | 2024-02-06 12:43 | XMS_ITS | Continuity of Care Document ---
Author Organization [facility] Adult Address [address] [place] [address]- Care Team Providers Care Advanced Nursing Professor Name Role Phone Annette Castillo NP Primary Care Physician [phone] Encounter [facility] Date(s): 12/24/19 - 01/23/20 [facility] [address] [place] [address]- [facility] Allergies, Adverse Reactions, Alerts Substance Reaction [...] EDT, Route to Pharmacy Electronically, [id number], 158, cm, 11/12/19 15:02:00 EDT, Height, 77.2, kg, 05/20/19 20:41:00 EST, Dry Weight Start Date: 12/11/19 Stop Date: 03/10/20 Status: Ordered baclofen 10 mg oral tablet 10 mg, 1, tablet, By Mouth, Daily at bedtime, for 90 days, # 90 tablet, Refills 0, Tot. Refills 0, Physician Stop 03/10/20 8:40:00 EST, 12/11/19 8:40:00 EDT, Route to Pharmacy Electronically, [facility][id number], 158, cm, 11/12/19 15:02:00 EDT, [facility]... Start Date: 12/11/19 Stop Date: 03/10/20 Status: Ordered calcium (as carbonate)-vitamin D 500 mg-400 intl units oral tablet 1 tablet, By Mouth, 2 times a day, # 180 tablet, 1 Refills, Maintenance, 10/27/19 9:07:00 EDT, Tablet, [facility] #[id number], 1 tablet By Mouth 2 times a day, 158, cm, 09/30/19 10:10:00 EDT, Height, 77.2, kg, 05/20/19 20:41:00 EST, Dry Weight Start Date: 10/27/19 Status: Ordered CeleBREX 200 mg oral capsule 1 capsule = 200 mg, By Mouth, 2 times a day, Take with food to avoid upset stomach, # 180 capsule, 0 Refills, Maintenance, 10/19/19 12:33:00 EDT, Capsule, [facility] #[id number], 158, cm, 09/30/19 10:10:00 EDT, Height, 77.2, [...] 0 Refills, Maintenance, 11/12/19 16:33:00 EDT, Capsule, [facility]/pharmacy #0993, 158, cm, 11/12/19 [...] 0 Refills, 12/24/19 9:42:00 EDT, [facility][id number], 158, cm, 11/12/19 15:02:00 EDT, Height, 77.2, [...] Refills, Maintenance, 12/24/19 9:28:00 EDT, [facility] #[id number], 158, cm, 11/12/19 15:02:00 EDT, Height, 77.2, [...] 08/12/19 8:23:00 EDT, Route to Pharmacy Electronically, [facility]/pharmacy #0993, 158, cm, [...]
--- OUTSIDE RECORDS SUMMARY | 2024-02-06 12:43 | XMS_ITS | Continuity of Care Document ---
Author Organization [facility] Adult Address [address] [place] [address]- Care Team Providers Care Meteorological Aide Name Role Phone Annette Castillo NP Primary Care Physician [phone] Encounter [facility] Date(s): 09/05/20 - 10/05/20 [facility] [address] [place] [address]- Allergies, Adverse Reactions, Alerts Substance Reaction Severity [...] Refills, Maintenance, 04/08/20 8:32:00 EST, [facility], 164, cm, 03/17/20 16:43:00 EST, Height, 76.3, kg, 03/12/20 13:32:00 EST, Dry Weight Start Date: 04/08/20 Status: Ordered baclofen 10 mg oral tablet 10 mg, 1, tablet, By Mouth, Daily at bedtime, TAKE 1 TABLET BY MOUTH EVERYDAY AT BEDTIME, # 90 tablet, Refills 0, Tot. Refills 0, Maintenance, 08/05/20 12:52:00 EDT, Route to Pharmacy Electronically,[facility] #[id number], Partial fill upon patient re... Start Date: 08/05/20 Status: Ordered calcium (as carbonate)-vitamin D 500 mg-400 intl units oral tablet 1 tablet, By Mouth, 2 times a day, # 180 tablet, 1 Refills, Maintenance, 05/05/20 16:26:00 EST, Tablet, [facility] #[id number], 1 tablet By Mouth 2 times a day, 164, cm, 03/17/20 16:43:00 EST, Height,76.3, kg, 03/12/20 13:32:00 EST, Dry Weight Start Date: 05/05/20 Status: Ordered CeleBREX 200 mg oral capsule 1 capsule = 200 mg, By Mouth, 2 times a day, Until mail order is delivered, # 28 capsule, 0 Refills, Maintenance, 10/19/19 12:34:00 EDT, Capsule, [facility]/pharmacy #[id number], 158, cm, 09/30/19 10:10:00 [...] 0 Refills, Maintenance, 11/12/19 16:33:00 EDT, Capsule, [facility]/pharmacy #0993, 158, cm, 11/12/19 15:02:00 [...] tablet, 0 Refills, Maintenance, 09/27/20 14:38:00 EDT, [facility]/pharmacy #0993, 157, cm, 09/07/20 14:26:00 EDT, Height, 76.3, kg, 03/12... Start Date: 09/27/20 Status: Ordered levothyroxine 0.088 mg oral tablet 1 tablet, By Mouth, Daily, # 30 tablet, 2 Refills, Maintenance, 09/09/20 8:28:00 EDT, [facility] #[id number], Rx resent from 09/05, 157, cm, 09/07/20 14:26:00 EDT, Height, 76.3, kg, 03/12/20 13:32:00 EST, Dry Weight Start Date: 09/09/20 Status: Ordered Macrobid macrocrystals-monohydrate 100 mg oral capsule 1 capsule = 100 mg, By Mouth, 2 times a day, for 7 days, # 14 capsule, 0 Refills, Acute 10/07/20 15:17:00 EDT, 09/30/20 15:17:00 EDT, Capsule, [facility]/pharmacy #0993, Partial fill upon patient request ifthe prescription is for a schedule II opioid drug.,... Start Date: 09/30/20 Stop Date: 10/07/20 Status: Ordered Mirapex 1 mg oral tablet 1.5 tablet = 1.5 mg, By Mouth, 3 times a day, # 135 tablet, 5 Refills, Maintenance, 09/09/20 8:27:00 EDT, [id number], 157, cm, 09/07/20 14:26:00 EDT, Height, 76.3, [...] EDT, Route to Pharmacy Electronically, [id number], 157, cm, 06/30/20 10:07:00 EST, Height, 76.3, kg, 03/12/20 13:32:00 EST, Dry We... Start Date: 08/05/20 Status: Ordered Zofran 4 mg oral tablet 1 tablet = 4 mg, By Mouth, Every 8 hours, PRN Nausea & Vomiting, # 10 tablet, 0 Refills, Maintenance, 03/13/20 9:49:00 EST, Tablet, [facility], Partial fill upon patient [...]
--- OUTSIDE RECORDS SUMMARY | 2024-02-06 12:43 | XMS_ITS | Continuity of Care Document ---
Author Organization [facility] Address Unknown Care Team Providers Care Commercial Escrow Assistant Name Role Phone Jonathan SANTAMARIA, Annette Primary Care Physician [facility]counter [facility] Date(s): 09/05/20 - 01/13/21 [facility] Attending Physician: Stan Graf MD Referring Physician: Alisha Mcmanus NP Allergies, Adverse Reactions, Alerts Substance Reaction [...] 09/29/07 Given 1Location History: pharmacy 2Location History: [facility] 3Admin Note: high dose done at [facility] 4Admin Note: immun records 5Admin Note: immun records 6[facility] 7Admin Note: immun records 8Admin Note: immun records 9Admin Note: immun records 10Admin Note: immun records 11Admin Note: immun records Medications aspirin 81 mg oral delayed release tablet = 81 mg, By Mouth, Daily, # 30 tablet, 3 Refills, Maintenance, 11/07/20 15:07:00 EDT, [facility] #[id number], 157, cm, 09/07/20 14:26:00 EDT, Height, 76.3, kg, 03/12/20 13:32:00 EST, Dry Weight Start Date: 11/07/20 Status: Ordered baclofen 10 mg oral tablet 10 mg, 1, tablet, By Mouth, Daily at bedtime, TAKE 1 TABLET BY MOUTH EVERYDAY AT BEDTIME, # 90 tablet, Refills 0, Tot. Refills 0, Maintenance, 11/09/20 8:38:00 EDT, Route to Pharmacy Electronically, [facility] #[id number], Partial fill upon patient req... Start Date: 11/09/20 Stop Date: 02/07/21 Status: Ordered calcium (as carbonate)-vitamin D 500 mg-400 intl units oral tablet 1 tablet, By Mouth, 2 times a day, # 180 tablet, 3 Refills, Maintenance, 11/09/20 8:38:00 EDT, Tablet, [id number], 1 tablet By Mouth 2 times a [...] IN [facility], # 180 tablet, 0 Refills, [facility], 157.5, cm, 11/09/20 8:24:00 EDT, Height, 76.3, kg, 03/12/20 13:32:00 EST, Dry Weight Start Date: 12/30/20 Status: Ordered ipratropium nasal 21 mcg/inh spray See Instructions, SPRAY 2 SPRAYS INTO BOTH NOSTRILS 2 TIMES A DAY FOR 30 DAYS, # 30 Unknown, 0 Refills, [facility], 30, SPRAY 2 SPRAYS INTO BOTH NOSTRILS 2 TIMES A DAY FOR 30 DAYS, 157.5, cm, 11/09/20 8:24:00 EDT, Height, 76.3, kg, 03/12/20 13:32... Start Date: 12/30/20 Status: Ordered levothyroxine 0.088 mg oral tablet 1 tablet, By Mouth, Daily, # 30 tablet, 5 Refills, Maintenance, 12/01/20 11:20:00 EDT, [facility], 157.5, cm, 11/09/20 8:24:00 EDT, Height, 76.3, kg, 03/12/20 13:32:00 EST, Dry Weight Start Date: 12/01/20 Status: Ordered Mirapex 1 mg oral tablet 1.5 tablet = 1.5 mg, By Mouth, 3 times a day, # 135 tablet, 5 Refills, Maintenance, 09/09/20 8:27:00 EDT, [id number], 157, cm, 09/07/20 14:26:00 EDT, Height, 76.3, [...] EDT, Route to Pharmacy Electronically, [facility] #[id number], 157, cm, 06/30/20 10:07:00 EST, Height, 76.3, kg, 03/12/20 13:32:00 EST, Dry We... Start Date: 08/05/20 Status: Ordered Zofran 4 mg oral tablet 1 tablet = 4 mg, By Mouth, Every 8 hours, PRN Nausea & Vomiting, # 10 tablet, 0 Refills, Maintenance, 03/13/20 9:49:00 EST, Tablet, [facility], Partial fill upon patient [...]
--- OUTSIDE RECORDS SUMMARY | 2024-02-06 12:43 | XMS_ITS | Continuity of Care Document ---
Author Organization [facility] Adult Address [address] [place] [address]- Care Team Providers Care Client Services Representative Name Role Phone Cecilia SANTAMARIA, Leonarda Primary Care Physician [phone] Encounter [facility] Date(s): 08/14/19 - 08/24/19 [facility] [address] [place] [address]- [facility] Attending Physician: Miles Olea Admitting Physician: Miles [...] Maintenance, 03/04/19 15:42:41 EST,Route to Pharmacy Electronically, [id number], [facility]/pharmacy #[id number] Start Date: 03/04/19 Stop Date: 10/30/19 Status: Ordered baclofen 10 mg oral tablet See Instructions, TAKE 1 TABLET BY MOUTH EVERYDAY AT BEDTIME, # 90 tablet, Refills 0, Maintenance, Instructions Replace Required Details, Route to Pharmacy Electronically, [facility] 576[facility], 158, cm, 07/30/19 12:49:00 EDT, Height, 77.2, kg, 05/20/19 20:... Start Date: 08/19/19 Status: Ordered calcium (as carbonate)-vitamin D 500 mg-400 intl units oral tablet 1 tablet, By Mouth, 2 times a day, # 60 tablet, 5 Refills, Maintenance, 05/26/19 13:08:00 EST, Tablet, [facility]/pharmacy #0993, 1 tablet By Mouth 2 times [...] 1 Refills, Maintenance, 08/03/19 9:15:00 EDT, Capsule, [facility]/pharmacy #0993, 158, cm, 07/30/19 12:49:00 EDT, Height, [...] [facility], # 180 tablet, 1 Refills, Maintenance, [facility], 158, cm, 07/30/19 12:49:00 EDT, Height, 77.2, kg, 05/20/19 20:41:00 EST, Dry Weight Start Date: 08/12/19 Status: Ordered lactulose 10 gm/15 ml oral syrup 15 mL = 10 Gm, By Mouth, 2 times a day, PRN as needed for constipation, # 480 mL, 1 Refills, Maintenance, 07/27/19 12:04:00 EDT, Syrup, [facility]/pharmacy #0993, 15 mL By Mouth 2 times [...] tablet, 5 Refills, Maintenance, 05/08/19 15:54:00 EST, [facility]/pharmacy #0993, 157, cm, 05/07/19 16:41:00 EST, Height, [...] 08/12/19 8:23:00 EDT, Route to Pharmacy Electronically, [facility]/pharmacy #[id number], 158, cm, 07/30/19 12:49:00 EDT, Height, [...]
--- OUTSIDE RECORDS SUMMARY | 2024-02-06 12:44 | XMS_ITS | Continuity of Care Document ---
Author Organization [facility] Adult Address [address] [place] [address]- Care Team Providers Care Registered Nurse Obstetrics Name Role Phone Annette Castillo NP Primary Care Physician [facility] Date[facility]s): 10/03/20 - 11/02/20 [facility] [address] [place] [address]- Allergies, Adverse Reactions, Alerts Substance Reaction Severity [...] Refills, Maintenance, 04/08/20 8:32:00 EST, [facility], 164, cm, 03/17/20 16:43:00 EST, Height, 76.3, kg, 03/12/20 13:32:00 EST, Dry Weight Start Date: 04/08/20 Status: Ordered baclofen 10 mg oral tablet 10 mg, 1, tablet, By Mouth, Daily at bedtime, TAKE 1 TABLET BY MOUTH EVERYDAY AT BEDTIME, # 90 tablet, Refills 0, Tot. Refills 0, Maintenance, 08/05/20 12:52:00 EDT, Route to Pharmacy Electronically,[facility] #[id number], Partial fill upon patient re... Start Date: 08/05/20 Status: Ordered calcium (as carbonate)-vitamin D 500 mg-400 intl units oral tablet 1 tablet, By Mouth, 2 times a day, # 180 tablet, 1 Refills, Maintenance, 05/05/20 16:26:00 EST, Tablet, [facility] #[id number], 1 tablet By Mouth 2 times a day, 164, cm, 03/17/20 16:43:00 EST, Height,76.3, kg, 03/12/20 13:32:00 EST, Dry Weight Start Date: 05/05/20 Status: Ordered CeleBREX 200 mg oral capsule 1 capsule = 200 mg, By Mouth, 2 times a day, Until mail order is delivered, # 28 capsule, 0 Refills, Maintenance, 10/19/19 12:34:00 EDT, Capsule, [facility]/pharmacy #[id number], 158, cm, 09/30/19 10:10:00 [...] 0 Refills, Maintenance, 11/12/19 16:33:00 EDT, Capsule, [facility]/pharmacy #0993, 158, cm, 11/12/19 15:02:00 [...] tablet, 0 Refills, Maintenance, 09/27/20 14:38:00 EDT, [facility]/pharmacy #0993, 157, cm, 09/07/20 14:26:00 EDT, Height, 76.3, kg, 03/12... Start Date: 09/27/20 Status: Ordered levothyroxine 0.088 mg oral tablet 1 tablet, By Mouth, Daily, # 30 tablet, 2 Refills, Maintenance, 09/09/20 8:28:00 EDT, [facility] #[id number], Rx resent from 09/05, 157, cm, 09/07/20 14:26:00 EDT, Height, 76.3, kg, 03/12/20 13:32:00 EST, Dry Weight Start Date: 09/09/20 Status: Ordered Mirapex 1 mg oral tablet 1.5 tablet = 1.5 mg, By Mouth, 3 times a day, # 135 tablet, 5 Refills, Maintenance, 09/09/20 8:27:00 EDT, [facility] #[id number], 157, cm, 09/07/20 14:26:00 EDT, Height, 76.3, [...] EDT, Route to Pharmacy Electronically, [facility] #[id number], 157, cm, 06/30/20 10:07:00 EST, Height, 76.3, kg, 03/12/20 13:32:00 EST, Dry We... Start Date: 08/05/20 Status: Ordered Zofran 4 mg oral tablet 1 tablet = 4 mg, By Mouth, Every 8 hours, PRN Nausea & Vomiting, # 10 tablet, 0 Refills, Maintenance, 03/13/20 9:49:00 EST, Tablet, [facility], Partial fill upon [...]
--- OUTSIDE RECORDS SUMMARY | 2024-02-06 12:44 | XMS_ITS | Continuity of Care Document ---
Author Organization [facility] Adult Address [address] [place] [address]- Care Team Providers Care Electric Operator Name Role Phone Annette Castillo NP Primary Care Physician [facility]counter [facility] Date(s): 12/29/20 - 01/28/21 [facility] [address] [place] [address]- Allergies, Adverse Reactions, Alerts Substance Reaction Severity Status morphine 1 Persistent Moderate Active penicillins Active 1nausea vomiting Immunizations Given and Recorded Vaccine Date Status Refusal Reason influenza virus vaccine, inactivated 12/16/20 Mango rded influenza virus vaccine, inactivated 01/07/20 Mango rded influenza virus vaccine, inactivated 01/21/18 Mango rded influenza virus vaccine, inactivated 1 12/28/17 Re corded influenza virus vaccine, inactivated 01/09/17 Magno rded influenza virus vaccine, inactivated 2 01/08/17 [...] 09/29/07 Given 1Location History: pharmacy 2Location History: [facility] 3Admin Note: high dose done at [facility] 4Admin Note: immun records 5Admin Note: immun records 6[facility] 7Admin Note: immun records 8Admin Note: immun records 9Admin Note: immun records 10Admin Note: immun records 11Admin Note: immun records Medications aspirin 81 mg oral delayed release tablet = 81 mg, By Mouth, Daily, # 30 tablet, 3 Refills, Maintenance, 11/07/20 15:07:00 EDT, [facility] #[id number], 157, cm, 09/07/20 14:26:00 EDT, Height, 76.3, kg, 03/12/20 13:32:00 EST, Dry Weight Start Date: 11/07/20 Status: Ordered baclofen 10 mg oral tablet 1, tablet, By Mouth, Daily at bedtime, # 30 tablet, Refills 2, Route to Pharmacy Electronically, [facility], 157.5, cm, 11/09/20 8:24:00 EDT, Height, 76.3, kg, 03/12/20 13:32:00 EST, Dry Weight Start Date: 01/25/21 Status: Ordered calcium (as carbonate)-vitamin D 500 mg-400 intl units oral tablet 1 tablet, By Mouth, 2 times a day, # 180 tablet, 3 Refills, Maintenance, 11/09/20 8:38:00 EDT, Tablet, [facility] #[id number], 1 tablet By Mouth 2 times a [...] # 180 tablet, 0 Refills, [facility], 157.5, cm, 11/09/20 8:24:00 EDT, Height, 76.3, kg, 03/12/20 13:32:00 EST, Dry Weight Start Date: 12/30/20 Status: Ordered ipratropium nasal 21 mcg/inh spray See Instructions, SPRAY 2 SPRAYS INTO BOTH NOSTRILS 2 TIMES A DAY FOR 30 DAYS, # 30 Unknown, 0 Refills, [facility] STORE 82159, 30, SPRAY 2 SPRAYS INTO BOTH NOSTRILS 2 TIMES A DAY FOR 30 DAYS, 157.5, cm, 11/09/20 8:24:00 EDT, Height, 76.3, kg, 03/12/20 13:32... Start Date: 01/23/21 Status: Ordered levothyroxine 0.088 mg oral tablet 1 tablet, By Mouth, Daily, # 30 tablet, 5 Refills, Maintenance, 12/01/20 11:20:00 EDT, [facility], 157.5, cm, 11/09/20 8:24:00 EDT, Height, 76.3, kg, 03/12/20 13:32:00 EST, Dry Weight Start Date: 12/01/20 Status: Ordered Mirapex 1 mg oral tablet 1.5 tablet = 1.5 mg, By Mouth, 3 times a day, # 135 tablet, 5 Refills, Maintenance, 09/09/20 8:27:00 EDT, [facility][id number], 157, cm, 09/07/20 14:26:00 EDT, Height, 76.3, [...] tablet, Refills 5, Route to Pharmacy Electronically, [facility] 18[facility], 157.5, cm, 11/09/20 8:24:00 EDT, Height, 76.3, kg, 03/12/20 13:32:00 EST, Dry Weight Start Date: 01/25/21 Status: Ordered Zofran 4 mg oral tablet 1 tablet = 4 mg, By Mouth, Every 8 hours, PRN Nausea & Vomiting, # 10 tablet, 0 Refills, Maintenance, 03/13/20 9:49:00 EST, Tablet, [facility], Partial fill upon patient request, [...]
--- OUTSIDE RECORDS SUMMARY | 2024-02-06 12:44 | XMS_ITS | Continuity of Care Document ---
Author Organization [facility] Adult Address [address] [place] [address]- Care Team Providers Care Dry Cleaning Manager Name Role Phone Annette Castillo NP Primary Care Physician Encounter [facility] Date(s): 03/18/20 - 04/17/20 [facility] [address] [place] [address]- Attending Physician: Miles Olea Admitting Physician: AdmMiles [...] Refills, Maintenance, 04/08/20 8:32:00 EST, [facility], 164, cm, 03/17/20 16:43:00 EST, Height, 76.3, [...] 04/04/20 15:28:00 EST, Route to Pharmacy Electronically, [facility] #[id number], 164, cm, 03/17/20 16:43:00 EST, He... Start Date: 04/04/20 Stop Date: 05/04/20 Status: Ordered calcium (as carbonate)-vitamin D 500 mg-400 intl units oral tablet 1 tablet, By Mouth, 2 times a day, # 180 tablet, 1 Refills, Maintenance, 10/27/19 9:07:00 EDT, Tablet, [facility] #[id number], 1 tablet By Mouth 2 times a day, 158, cm, 09/30/19 10:10:00 EDT, Height, 77.2, kg, 05/20/19 20:41:00 EST, Dry Weight Start Date: 10/27/19 Status: Ordered CeleBREX 200 mg oral capsule 1 capsule = 200 mg, By Mouth, 2 times a day, Until mail order is delivered, # 28 capsule, 0 Refills, Maintenance, 10/19/19 12:34:00 EDT, Capsule, [facility]/pharmacy #0993, 158, cm, 09/30/19 [...] 0 Refills, Maintenance, 11/12/19 16:33:00 EDT, Capsule, [facility]/pharmacy #0993, 158, cm, 11/12/19 [...] 180 tablet, 0 Refills, 03/02/20 8:56:00 EST, [facility]/pharmacy #0993, 157.48, cm, 02/04/20 11:41:00 EDT, Height, 77.2, kg, 05/20/19 20:41:0... Start Date: 03/02/20 Status: Ordered levothyroxine 0.088 mg oral tablet 1 tablet = 88 mcg, By Mouth, Daily, # 90 tablet, 1 Refills, Soft Stop, 03/07/20 15:20:00 EST, [facility] #[id number], 157.48, cm, 02/04/20 11:41:00 EDT, Height, 77.2, kg, 05/20/19 20:41:00 EST, Dry Weight Start Date: 03/07/20 Stop Date: 09/03/20 Status: Ordered Mirapex 1 mg oral tablet 1.5 tablet = 1.5 mg, By Mouth, 3 times a day, # 135 tablet, 4 Refills, Maintenance, 12/24/19 9:28:00 EDT, [facility] #[id number], 158, cm, 11/12/19 15:02:00 EDT, Height, 77.2, [...] EDT, Route to Pharmacy Electronically, [facility] #[id number], 157.48, cm, 02/04/20 11:41:00 EDT, Height, 77.2, kg, 05/20/19 20:41:00 EST... Start Date: 02/23/20 Status: Ordered Zofran 4 mg oral tablet 1 tablet = 4 mg, By Mouth, Every 8 hours, PRN Nausea & Vomiting, # 10 tablet, 0 Refills, Maintenance, 03/13/20 9:49:00 EST, Tablet, [facility], Partial fill upon patient [...]
--- OUTSIDE RECORDS SUMMARY | 2024-02-06 12:44 | XMS_ITS | Continuity of Care Document ---
Author Organization [facility] Adult Address [address] [place] [address]- Care Team Providers Care Security Control Room Officer Name Role Phone Annette Castillo NP Primary Care Physician [facility] Date(s): 09/22/20 - 10/22/20 [facility] [address] [place] [address]- Allergies, Adverse Reactions, Alerts Substance Reaction Severity [...] Refills, Maintenance, 04/08/20 8:32:00 EST, [facility], 164, cm, 03/17/20 16:43:00 EST, Height, 76.3, kg, 03/12/20 13:32:00 EST, Dry Weight Start Date: 04/08/20 Status: Ordered baclofen 10 mg oral tablet 10 mg, 1, tablet, By Mouth, Daily at bedtime, TAKE 1 TABLET BY MOUTH EVERYDAY AT BEDTIME, # 90 tablet, Refills 0, Tot. Refills 0, Maintenance, 08/05/20 12:52:00 EDT, Route to Pharmacy Electronically,[facility] #[id number], Partial fill upon patient re... Start Date: 08/05/20 Status: Ordered calcium (as carbonate)-vitamin D 500 mg-400 intl units oral tablet 1 tablet, By Mouth, 2 times a day, # 180 tablet, 1 Refills, Maintenance, 05/05/20 16:26:00 EST, Tablet, [facility] #[id number], 1 tablet By Mouth 2 times a day, 164, cm, 03/17/20 16:43:00 EST, Height,76.3, kg, 03/12/20 13:32:00 EST, Dry Weight Start Date: 05/05/20 Status: Ordered CeleBREX 200 mg oral capsule 1 capsule = 200 mg, By Mouth, 2 times a day, Until mail order is delivered, # 28 capsule, 0 Refills, Maintenance, 10/19/19 12:34:00 EDT, Capsule, [facility]/pharmacy #0993, 158, cm, 09/30/19 [...] 0 Refills, Maintenance, 11/12/19 16:33:00 EDT, Capsule, [facility]/pharmacy #0993, 158, cm, 11/12/19 [...] tablet, 0 Refills, Maintenance, 09/27/20 14:38:00 EDT, [facility]/pharmacy #0993, 157, cm, 09/07/20 14:26:00 EDT, Height, 76.3, kg, 03/12... Start Date: 09/27/20 Status: Ordered levothyroxine 0.088 mg oral tablet 1 tablet, By Mouth, Daily, # 30 tablet, 2 Refills, Maintenance, 09/09/20 8:28:00 EDT, [facility] #[id number], Rx resent from 09/05, 157, cm, 09/07/20 14:26:00 EDT, Height, 76.3, kg, 03/12/20 13:32:00 EST, Dry Weight Start Date: 09/09/20 Status: Ordered Mirapex 1 mg oral tablet 1.5 tablet = 1.5 mg, By Mouth, 3 times a day, # 135 tablet, 5 Refills, Maintenance, 09/09/20 8:27:00 EDT, [facility] #[id number], 157, cm, 09/07/20 14:26:00 EDT, Height, 76.3, [...] EDT, Route to Pharmacy Electronically, [facility] #[id number], 157, cm, 06/30/20 10:07:00 EST, Height, 76.3, kg, 03/12/20 13:32:00 EST, Dry We... Start Date: 08/05/20 Status: Ordered Zofran 4 mg oral tablet 1 tablet = 4 mg, By Mouth, Every 8 hours, PRN Nausea & Vomiting, # 10 tablet, 0 Refills, Maintenance, 03/13/20 9:49:00 EST, Tablet, [facility], Partial fill upon patient [...]
--- OUTSIDE RECORDS SUMMARY | 2024-02-06 12:44 | XMS_ITS | Continuity of Care Document ---
Author Organization [facility] Address [address] [place] [address]- Care Team Providers Care Stevedoring Supervisor Name Role Phone Swapnil CUSTOMER PROGRAM SPECIALIST, Annette Primary Care Physician En[place] [facility] Date(s): 10/12/19 - 11/11/19 [facility] [address] [place] [address]- [facility] Attending Physician: Miles Olea Admitting Physician: AdmMiles [...] Replace Required Details, Route to [facility] Electronically, [facility], 158, cm, 07/30/19 12:49:00 EDT, Height, 77.2, kg, 05/20/19 20:... Start Date: 08/19/19 Status: Ordered calcium (as carbonate)-vitamin D 500 mg-400 intl units oral tablet 1 tablet, By Mouth, 2 times a day, # 180 tablet, 1 Refills, Maintenance, 10/27/19 9:07:00 EDT, Tablet, [facility] #[id number], 1 tablet By Mouth 2 times a day, 158, cm, 09/30/19 10:10:00 EDT, Height, 77.2, kg, 05/20/19 20:41:00 EST, Dry Weight Start Date: 10/27/19 Status: Ordered CeleBREX 200 mg oral capsule 1 capsule = 200 mg, By Mouth, 2 times a day, Take with food to avoid upset stomach, # 180 capsule, 0 Refills, Maintenance, 10/19/19 12:33:00 EDT, Capsule, [facility] #[id number], 158, cm, 09/30/19 10:10:00 EDT, Height, 77.2, kg, 05/20/19 20:41:00 EST,... Start Date: 10/19/19 Stop Date: 01/17/20 Status: Ordered CeleBREX 200 mg oral capsule 1 capsule = 200 mg, By Mouth, 2 times a day, Until mail order is delivered, # 28 capsule, 0 Refills, Maintenance, 10/19/19 12:34:00 EDT, Capsule, [facility]/pharmacy #0993, 158, cm, [...] 180 tablet, 1 Refills, Maintenance, [facility], 158, cm, 07/30/19 12:49:00 EDT, Height, 77.2, [...] 5 Refills, Maintenance, 05/08/19 15:54:00 EST, [facility]/pharmacy #0993, 157, cm, 05/07/19 16:41:00 [...] 8:23:00 EDT, Route to Pharmacy Electronically, [facility]/pharmacy #[id number], 158, cm, 07/30/19 12:49:00 [...]
--- OUTSIDE RECORDS SUMMARY | 2024-02-06 12:44 | XMS_ITS | Continuity of Care Document ---
Author Organization [facility] Address [address] [place] [address]- Care Team Providers Care Intelligence Analyst Name Role Phone Annette Castillo NP Primary Care Physician [phone] Encounter [facility] [place] Date(s): 11/12/20 - 03/12/21 [facility] [address] [place] [address]- Attending Physician: Donna Ingram MD Admitting Physician: Donna Ingram MD Referring Physician: Annette Castillo NP Allergies, [...] 09/29/07 Given 1Location History: pharmacy 2Location History: [facility] 3Admin Note: high dose done at [facility] 4Admin Note: immun records 5Admin Note: immun records 6[facility] 7Admin Note: immun records 8Admin Note: immun records 9Admin Note: immun records 10Admin Note: immun records 11Admin Note: immun records Medications Aspirin Low Dose 81 mg oral delayed release tablet 1 tablet, By Mouth, Daily, # 30 tablet, 3 Refills, [facility] STORE 83293, 157.5, cm, 11/09/20 8:24:00 EDT, Height, 76.3, kg, 03/12/20 13:32:00 EST, Dry Weight Start Date: 02/23/21 Status: Ordered baclofen 10 mg oral tablet 1, tablet, By Mouth, Daily at bedtime, # 30 tablet, Refills 2, Route to Pharmacy Electronically, [facility], 157.5, cm, 11/09/20 8:24:00 EDT, Height, 76.3, kg, 03/12/20 13:32:00 EST, Dry Weight Start Date: 01/25/21 Status: Ordered calcium (as carbonate)-vitamin D 500 mg-400 intl units oral tablet 1 tablet, By Mouth, 2 times a day, # 180 tablet, 3 Refills, Maintenance, 11/09/20 8:38:00 EDT, Tablet, [id number], 1 tablet By Mouth 2 times a day,x90 days, 157.5, cm, 11/09/20 8:24:00 EDT, Height, 76.3, kg, 03/12/20 13:32:00 EST, Dry Weight Start Date: 11/09/20 Stop Date: 11/04/21 Status: Ordered CeleBREX 200 mg oral capsule 1 capsule = 200 mg, By Mouth, 2 times a day, Until mail order is delivered, # 28 capsule, 0 Refills, Maintenance, 10/19/19 12:34:00 EDT, Capsule, [facility]/pharmacy #0993, 158, cm, 09/30/19 10:10:00 EDT, [...] 0 Refills, Maintenance, 11/12/19 16:33:00 EDT, Capsule, [facility]/pharmacy #0993, 158, cm, 11/12/19 15:02:00 EDT, [...] IN [place], # 180 tablet, 0 Refills, [facility] STORE 30289, 157.5, cm, 11/09/20 8:24:00 EDT, Height, 76.3, kg, 03/12/20 13:32:00 EST, Dry Weight Start Date: 12/30/20 Status: Ordered ipratropium nasal 21 mcg/inh spray See Instructions, SPRAY 2 SPRAYS INTO BOTH NOSTRILS 2 TIMES A DAY FOR 90 DAYS, # 3 each, 0 Refills,Physician Stop 02/07/22 10:33:00 EDT, 02/07/21 10:32:00 EDT, [facility]/pharmacy #0993, SPRAY 2 SPRAYS INTO BOTH NOSTRILS 2 TIMES A DAY FOR 90 DAYS, 157.5, cm... Start Date: 02/07/21 Stop Date: 02/07/22 Status: Ordered levothyroxine 0.088 mg oral tablet 1 tablet, By Mouth, Daily, # 30 tablet, 5 Refills, Maintenance, 12/01/20 11:20:00 EDT, [facility], 157.5, cm, 11/09/20 8:24:00 EDT, Height, 76.3, kg, 03/12/20 13:32:00 EST, Dry Weight Start Date: 12/01/20 Status: Ordered Multivitamin With Minerals By Mouth, 0 Refills, Maintenance Start Date: 04/02/11 Status: Ordered pramipexole 1 mg oral tablet 1.5 tablet, By Mouth, 3 times a day, # 135 tablet, 5 Refills, [facility], 157.5, cm, 11/09/20 8:24:00 EDT, Height, 76.3, [...] tablet, Refills 5, Route to Pharmacy Electronically, [facility] STORE 73705, 157.5, cm, 11/09/20 8:24:00 EDT, Height, 76.3, kg, 03/12/20 13:32:00 EST, Dry Weight Start Date: 01/25/21 Status: Ordered Zofran 4 mg oral tablet 1 tablet = 4 mg, By Mouth, Every 8 hours, PRN Nausea & Vomiting, # 10 tablet, 0 Refills, Maintenance, 03/13/20 9:49:00 EST, Tablet, [facility], Partial fill upon [...]
--- OUTSIDE RECORDS SUMMARY | 2024-02-06 12:44 | XMS_ITS | Continuity of Care Document ---
Author Organization [facility] Adult Address [address] [place] [address]- Care Team Providers Care Land Surveying Survey Worker Name Role Phone Annette Castillo NP Primary Care Physician [phone] Encounter [facility] Date(s): 03/13/21 - 03/20/21 [facility] Adult [address] [place] [address]- Encounter Diagnosis Constipation(Discharge Diagnosis) - 03/13/21 Hypothyroidism(Discharge Diagnosis) - 03/13/21 Lumbar spondylosis(Discharge Diagnosis) - 03/13/21 Cough(Discharge Diagnosis) - 03/13/21 Attending Physician: Annette Castillo NP Allergies, Adverse [...] 09/29/07 Given 1Location History: pharmacy 2Location History: [facility] 3Admin Note: high dose done at [facility] 4Admin Note: immun records 5Admin Note: immun records 6Result Comment: [facility] 7Admin Note: immun records 8Admin Note: immun records 9Admin Note: immun records 10Admin Note: immun records 11Admin Note: immun records Medications Aspirin Low Dose 81 mg oral delayed release tablet 1 tablet, By Mouth, Daily, # 30 tablet, 3 Refills, [facility] STORE 71433, 157.5, cm, 11/09/20 8:24:00 EDT, Height, 76.3, kg, 03/12/20 13:32:00 EST, Dry Weight Start Date: 02/23/21 Status: Ordered baclofen 10 mg oral tablet 1, tablet, By Mouth, Daily at bedtime, # 30 tablet, Refills 2, Route to Pharmacy Electronically, [facility] STORE 23441, 157.5, cm, 11/09/20 8:24:00 EDT, Height, 76.3, kg, 03/12/20 13:32:00 EST, Dry Weight Start Date: 01/25/21 Status: Ordered calcium (as carbonate)-vitamin D 500 mg-400 intl units oral tablet 1 tablet, By Mouth, 2 times a day, # 180 tablet, 3 Refills, Maintenance, 11/09/20 8:38:00 EDT, Tablet, [facility] #[id number], 1 tablet By Mouth 2 times a [...] IN [place], # 180 tablet, 0 Refills, 03/20/21 11:39:00 EST, [id number], 157.5, cm, 03/13/21 9:05:00 EST, Height, 76.3, kg, 03/12/20 13:32... Start Date: 03/20/21 Status: Ordered ipratropium nasal 21 mcg/inh spray See Instructions, SPRAY 2 SPRAYS INTO BOTH NOSTRILS 2 TIMES A DAY FOR 90 DAYS, # 3 each, 0 Refills,Physician Stop 02/07/22 10:33:00 EDT, 02/07/21 10:32:00 EDT, [facility]/pharmacy #0993, SPRAY 2 SPRAYS INTO BOTH NOSTRILS 2 TIMES A DAY FOR 90 DAYS, 157.5, cm... Start Date: 02/07/21 Stop Date: 02/07/22 Status: Ordered lactulose 10 gm/15 ml oral syrup 15 mL = 10 Gm, By Mouth, Daily, for 60 days, Take an additional 30mL daily as needed for constipation, # 900 mL, 0 Refills, Acute 05/12/21 9:23:00 EST, 03/13/21 9:23:00 EST, Syrup, [facility]/pharmacy #[id number], Partial fill upon patient request if the prescript... Start Date: 03/13/21 Stop Date: 05/12/21 Status: Ordered levothyroxine 0.088 mg oral tablet 1 tablet, By Mouth, Daily, # 30 tablet, 5 Refills, Maintenance, 12/01/20 11:20:00 EDT, [facility], 157.5, cm, 11/09/20 8:24:00 EDT, Height, 76.3, kg, 03/12/20 13:32:00 EST, Dry Weight Start Date: 12/01/20 Status: Ordered Multivitamin With Minerals By Mouth, 0 Refills, Maintenance Start Date: 04/02/11 Status: Ordered pramipexole 1 mg oral tablet 1.5 tablet, By Mouth, 3 times a day, # 135 tablet, 5 Refills, [facility], 157.5, cm, 11/09/20 8:24:00 EDT, Height, 76.3, [...] tablet, Refills 5, Route to Pharmacy Electronically, [facility] STORE 62703, 157.5, cm, 11/09/20 8:24:00 EDT, Height, 76.3, kg, 03/12/20 13:32:00 EST, Dry Weight Start Date: 01/25/21 Status: Ordered Zofran 4 mg oral tablet 1 tablet = 4 mg, By Mouth, Every 8 hours, PRN Nausea & Vomiting, # 10 tablet, 0 Refills, Maintenance, 03/13/20 9:49:00 EST, Tablet, [facility], Partial fill upon patient [...] Effective Dates Health Status Clinical Service Informant Constipation Discharge Diagnosis 03/13/21 Hypothyroidism Discharge Diagnosis 03/13/21 Lumbar spondylosis Discharge Diagnosis 03/13/21 Cough Discharge Diagnosis 03/13/21 Vital Signs Most recent to oldest [Reference Range]: 1 Height 157.5 cm (03/13/21 9:05 AM) Weight 77.7 kg (03/13/21 9:05 AM) Oxygen Saturation [94-100 %] 94 % (03/13/21 9:05 AM) Pulse Rate [55-90 bpm] 74 bpm (03/13/21 9:05 AM) Body Mass Index [18.5-24.99] 31.32 *>HHI* (03/13/21 9:05 AM) Blood Pressure [90-138/55-84 mm Hg] 108/ 60mm Hg (03/13/21 9:05 AM) Temperature [96.8-100.4 DegF] 98.2 DegF (03/13/21 9:05 AM) Mode of Delivery (Oxygen) Room air (03/13/21 9:05 AM) Blood pressure sites Arm, left (03/13/21 9:05 AM) Temperature Route Oral (03/13/21 9:05 AM) Weight Obtained Via Patient/family state d (03/13/21 9:05 AM) Social History Social History Type Response Smoking Status Never (less than 100 in lifetime) entered on: 11/09/20 Sex
--- OUTSIDE RECORDS SUMMARY | 2024-02-06 12:44 | XMS_ITS | Continuity of Care Document ---
Author Organization [facility] Address [address] [place] [address]- Care Team Providers Care Supervisor Curing Room Name Role Phone Annette Castillo NP Primary Care Physician [facility]counter [facility] Date(s): 06/23/21 - 07/23/21 [facility] [address] [place] [address]- [place] Allergies, Adverse Reactions, Alerts Substance Reaction [...] [facility] 4Admin Note: high dose done at [facility] 5Admin Note: immun records 6Admin Note: immun records 7Admin Note: immun records 8Admin Note: immun records 9Admin Note: immun records 10Admin Note: immun records 11Admin Note: immun records Medications Aspirin Low Dose 81 mg oral delayed release tablet 1 tablet, By Mouth, Daily, # 30 tablet, 2 Refills, [facility] STORE 91200, 157.5, cm, 03/13/21 9:05:00 EST, Height, 76.3, kg, 03/12/20 13:32:00 EST, Dry Weight Start Date: 06/26/21 Status: Ordered baclofen 10 mg oral tablet 1, tablet, By Mouth, Daily at bedtime, # 30 tablet, Refills 2, Route to Pharmacy Electronically, [facility], 157.5, cm, 03/13/21 9:05:00 EST, Height, 76.3, kg, 03/12/20 13:32:00 EST, Dry Weight Start Date: 04/27/21 Status: Ordered calcium (as carbonate)-vitamin D 500 mg-400 intl units oral tablet 1 tablet, By Mouth, 2 times a day, # 180 tablet, 3 Refills, Maintenance, 11/09/20 8:38:00 EDT, Tablet, [id number], 1 tablet By Mouth 2 times a day,x90 days, 157.5, cm, 11/09/20 8:24:00 EDT, Height, 76.3, kg, 03/12/20 13:32:00 EST, Dry Weight Start Date: 11/09/20 Stop Date: 11/04/21 Status: Ordered CeleBREX 200 mg oral capsule 1 capsule = 200 mg, By Mouth, 2 times a day, Until mail order is delivered, # 28 capsule, 0 Refills, Maintenance, 10/19/19 12:34:00 EDT, Capsule, [facility]/pharmacy #0993, 158, cm, 09/30/19 [...] 0 Refills, Maintenance, 11/12/19 16:33:00 EDT, Capsule, [facility]/pharmacy #0993, 158, cm, 11/12/19 [...] # 30 tablet, 5 Refills, [facility], 157.5, cm, 03/13/21 9:05:00 EST, Height, 76.3, kg, 03/12/20 13:32:00 EST, Dry Weight Start Date: 05/25/21 Status: Ordered Multivitamin With Minerals By Mouth, 0 Refills, Maintenance Start Date: 04/02/11 Status: Ordered pramipexole 1 mg oral tablet 1.5 tablet, By Mouth, 3 times a day, # 135 tablet, 5 Refills, [facility], 157.5, cm, 11/09/20 8:24:00 EDT, Height, 76.3, [...] 5, Route to Pharmacy Electronically, [facility], 157.5, cm, 11/09/20 8:24:00 EDT, Height, 76.3, [...]
--- OUTSIDE RECORDS SUMMARY | 2024-02-06 12:44 | XMS_ITS | Continuity of Care Document ---
Author Organization [facility] Adult Address [address] [place] [address]- Care Team Providers Care Strength And Conditioning Coach Name Role Phone Annette Castillo NP Primary Care Physician [phone] Encounter [facility] Date(s): 05/20/23 - 06/19/23 [facility] [address] [place] [address]- Allergies, Adverse Reactions, Alerts Substance Reaction Severity Status morphine 1 Persistent Moderate Active penicillins Active 1nausea vomiting Immunizations Given and Recorded Vaccine Date Status Refusal Reason SARS-CoV-2(COVID-19)mRNA-LNP vac([id number]) 04/17/23 Recorded influenza virus vaccine, inactivated 12/27/22 [...] virus vaccine, inactivated 6 01/24/12 Gi [facility] [id number] 12y+ bivalent booster vax 03/02/22 Recorded SARS-CoV-2 [...] tetanus/diphtheria/pertussis, acel(Tdap) 12 09/29/07 Given 1Result Comment: [facility] [id number] 2Location History: pharmacy 3Location History: [facility] 4Admin Note: high dose done at [facility] 5Admin Note: immun records 6Admin Note: immun records 7Result Comment: [facility] 8Admin Note: immun records 9Admin Note: immun records 10Admin Note: immun records 11Admin Note: immun records 12Admin Note: immun records Medications Aspirin Low Dose 81 mg oral delayed release tablet 1 tablet, By Mouth, Daily, # 90 tablet, 1 Refills, Maintenance, 04/26/23 6:56:00 EST, [facility] STORE 63545, 156.5, cm, 02/18/23 10:06:00 EDT, Height, 77, [...] Refills, Maintenance, 01/04/23 7:17:00 EDT, [facility], 158, cm, 10/10/22 9:38:00 EDT, Height, 80.8, [...] Care Nurse Name: Julissa Patel RN Position: [facility] RN Member Role: Primary Care Nurse Name: Olga Brooke RN Position: [facility] RN Member Role: Primary Care Nurse Name: Annette Castillo NP Position: [facility] PCO Associate Professional Member Role: PCP Address: Address: [address] [place] [address]- Name: Grady Ortiz Position: [facility] Outreach Member Role: Lifetime Consulting Physician Address: Address: [address] [place] [address]- Care Team Related Persons Name: KELLEE BARRAGAN Name: ANUEL PARKER Address: [address] [place] [address] Name: ANUEL GU Address: [address] [place] [address] Name: KELLEE PEÑA Address: [address] [place] [address]
--- OUTSIDE RECORDS SUMMARY | 2024-02-06 12:44 | XMS_ITS | Continuity of Care Document ---
Author Organization [facility] Adult Address [address] [place] [address]- Care Team Providers Care Machine Packaging Technician Name Role Phone Annette Castillo NP Primary Care Physician [facility]counter [facility] Date(s): 03/07/20 - 04/06/20 [facility] [address] [place] [address]- Allergies, Adverse Reactions, Alerts Substance Reaction Severity [...] aspirin 81 mg oral delayed release tablet TAKE 1 (81MG) TABLET BY MOUTH DAILY Start Date: 03/12/20 Status: Ordered baclofen 10 mg oral tablet TAKE 1 TABLET BY MOUTH EVERYDAY AT BEDTIME Start Date: 03/12/20 Status: Ordered baclofen 10 mg oral tablet 10 mg, 1, tablet, By Mouth, Daily at bedtime, for 30 days, # 30 tablet, Refills 0, Tot. Refills 0, Physician Stop 05/04/20 15:28:00 EST, 04/04/20 15:28:00 EST, Route to Pharmacy Electronically, [facility] #[id number], 164, cm, 03/17/20 16:43:00 EST, He... Start Date: 04/04/20 Stop Date: 05/04/20 Status: Ordered calcium (as carbonate)-vitamin D 500 mg-400 intl units oral tablet 1 tablet, By Mouth, 2 times a day, # 180 tablet, 1 Refills, Maintenance, 10/27/19 9:07:00 EDT, Tablet, [facility] #[id number], 1 tablet By Mouth 2 times a day, 158, cm, 09/30/19 10:10:00 EDT, Height, 77.2, kg, 05/20/19 20:41:00 EST, Dry Weight Start Date: 10/27/19 Status: Ordered CeleBREX 200 mg oral capsule 1 capsule = 200 mg, By Mouth, 2 times a day, Until mail order is delivered, # 28 capsule, 0 Refills, Maintenance, 10/19/19 12:34:00 EDT, Capsule, [facility]/pharmacy #0993, 158, cm, 09/30/19 10:10:00 EDT, Height, [...] 180 tablet, 0 Refills, 03/02/20 8:56:00 EST, [facility], 157.48, cm, 02/04/20 11:41:00 EDT, Height, 77.2, kg, 05/20/19 20:41:0... Start Date: 03/02/20 Status: Ordered levothyroxine 0.088 mg oral tablet 1 tablet = 88 mcg, By Mouth, Daily, # 90 tablet, 1 Refills, Soft Stop, 03/07/20 15:20:00 EST, [facility] #[id number], 157.48, cm, 02/04/20 11:41:00 EDT, Height, 77.2, kg, 05/20/19 20:41:00 EST, Dry Weight Start Date: 03/07/20 Stop Date: 09/03/20 Status: Ordered Mirapex 1 mg oral tablet 1.5 tablet = 1.5 mg, By Mouth, 3 times a day, # 135 tablet, 4 Refills, Maintenance, 12/24/19 9:28:00 EDT, [facility] #[id number], 158, cm, 11/12/19 15:02:00 EDT, Height, 77.2, [...] 02/23/20 8:48:00 EDT, Route to Pharmacy Electronically, [facility][id number], 157.48, cm, 02/04/20 11:41:00 EDT, Height, 77.2, kg, 05/20/19 20:41:00 EST... Start Date: 02/23/20 Status: Ordered Zofran 4 mg oral tablet 1 tablet = 4 mg, By Mouth, Every 8 hours, PRN Nausea & Vomiting, # 10 tablet, 0 Refills, Maintenance, 03/13/20 9:49:00 EST, Tablet, [facility], Partial fill upon patient request, 164, [...]
--- OUTSIDE RECORDS SUMMARY | 2024-02-06 12:44 | XMS_ITS | Continuity of Care Document ---
Author Organization [facility] Address [address] [place] [address]- Care Team Providers Care High School Home Economics Teacher Name Role Phone Annette Castillo NP Primary Care Physician [phone] [facility]counter [facility] Date(s): 06/03/20 - 07/03/20 [facility] [address] [place] [address]- Allergies, Adverse Reactions, Alerts Substance Reaction Severity [...] tablet, 3 Refills, Maintenance, 04/08/20 8:32:00 EST, [facility] 35626, 164, cm, 03/17/20 16:43:00 EST, Height, 76.3, kg, 03/12/20 13:32:00 EST, Dry Weight Start Date: 04/08/20 Status: Ordered baclofen 10 mg oral tablet 10 mg, 1, tablet, By Mouth, Daily at bedtime, TAKE 1 TABLET BY MOUTH EVERYDAY AT BEDTIME, # 90 tablet, Refills 0, Tot. Refills 0, Maintenance, 05/24/20 9:11:00 EST, Route to Pharmacy Electronically, [facility] #[id number], Partial fill upon patient req... Start Date: 05/24/20 Status: Ordered calcium (as carbonate)-vitamin D 500 mg-400 intl units oral tablet 1 tablet, By Mouth, 2 times a day, # 180 tablet, 1 Refills, Maintenance, 05/05/20 16:26:00 EST, Tablet, [facility] #[id number], 1 tablet By Mouth 2 times a day, 164, cm, 03/17/20 16:43:00 EST, Height,76.3, kg, 03/12/20 13:32:00 EST, Dry Weight Start Date: 05/05/20 Status: Ordered CeleBREX 200 mg oral capsule 1 capsule = 200 mg, By Mouth, 2 times a day, Until mail order is delivered, # 28 capsule, 0 Refills, Maintenance, 10/19/19 12:34:00 EDT, Capsule, [facility]/pharmacy #0993, 158, cm, 09/30/19 10:10:00 [...] 0 Refills, Maintenance, 11/12/19 16:33:00 EDT, Capsule, [facility]/pharmacy #0993, 158, cm, 11/12/19 15:02:00 [...] 180 tablet, 0 Refills, 05/30/20 11:17:00 EST, [facility]/pharmacy #0993, 164, cm, 03/17/20 16:43:00 EST, Height, 76.3, kg, 03/12/20 13:32:00... Start Date: 05/30/20 Status: Ordered levothyroxine 0.088 mg oral tablet 1 tablet = 88 mcg, By Mouth, Daily, # 90 tablet, 1 Refills, Soft Stop, 03/07/20 15:20:00 EST, [facility] #[id number], 157.48, cm, 02/04/20 11:41:00 EDT, Height, 77.2, kg, 05/20/19 20:41:00 EST, Dry Weight Start Date: 03/07/20 Stop Date: 09/03/20 Status: Ordered Mirapex 1 mg oral tablet 1.5 tablet = 1.5 mg, By Mouth, 3 times a day, # 135 tablet, 4 Refills, Maintenance, 12/24/19 9:28:00 EDT, [facility] #[id number], 158, cm, 11/12/19 15:02:00 EDT, Height, 77.2, [...] EDT, Route to Pharmacy Electronically, [facility] #[id number], 157.48, cm, 02/04/20 11:41:00 EDT, Height, 77.2, kg, 05/20/19 20:41:00 EST... Start Date: 02/23/20 Status: Ordered Zofran 4 mg oral tablet 1 tablet = 4 mg, By Mouth, Every 8 hours, PRN Nausea & Vomiting, # 10 tablet, 0 Refills, Maintenance, 03/13/20 9:49:00 EST, Tablet, [facility], Partial fill upon patient [...]
--- OUTSIDE RECORDS SUMMARY | 2024-02-06 12:44 | XMS_ITS | Continuity of Care Document ---
Author Organization [facility] Adult Address [address] [place] [address]- Care Team Providers Care Hand Etcher Name Role Phone Annette Castillo NP Primary Care Physician [facility] Date[facility]s): 04/03/23 - 05/04/23 [facility] [address] [place] [address]- Attending Physician: Adriana Hernandez Allergies, Adverse Reactions, Alerts Substance Reaction Severity Status morphine 1 Persistent Moderate Active penicillins Active 1nausea vomiting Immunizations Given and Recorded Vaccine Date Status Refusal Reason SARS-CoV-2(COVID-19)mRNA-LNP vac([id number]) 04/17/23 Recorded influenza virus vaccine, inactivated 12/27/22 [...] virus vaccine, inactivated 6 01/24/12 Gi [facility] [id number] 12y+ bivalent booster vax 03/02/22 Recorded SARS-CoV-2 [...] acel(Tdap) 12 09/29/07 Given 1Result Comment: [facility] [id number] 2Location History: pharmacy 3Location History: [facility] 4Admin Note: high dose done at [facility] 5Admin Note: immun records 6Admin Note: immun records 7Result Comment: [facility] 8Admin Note: immun records 9Admin Note: immun records 10Admin Note: immun records 11Admin Note: immun records 12Admin Note: immun records Medications Aspirin Low Dose 81 mg oral delayed release tablet 1 tablet, By Mouth, Daily, # 90 tablet, 1 Refills, Maintenance, 04/26/23 6:56:00 EST, [facility] STORE 67994, 156.5, cm, 02/18/23 10:06:00 EDT, Height, 77, kg, 02/04/23 0:27:00 EDT, Dry Weight Start Date: 04/26/23 Status: Ordered baclofen 10 mg oral tablet 1, tablet, By Mouth, Daily at bedtime, # 90 tablet, Refills 1, Tot. Refills 1, Maintenance, 02/18/23 10:44:00 EDT, Route to Pharmacy Electronically, [facility]/pharmacy #1972, 156.5, cm, 02/18/23 10:06:00 [...] Refills, Maintenance, 10/16/22 17:51:00 EDT, Tablet, [facility]/pharmacy #1972, 1 tablet By Mouth [...] Refills, Maintenance, 01/04/23 7:17:00 EDT, [facility], 158, cm, 10/10/22 9:38:00 EDT, Height, 80.8, kg, 10/04/22 20:27:00 EDT,Dry Weight Start Date: 01/04/23 Status: Ordered meloxicam 15 mg oral tablet 1 tablet = 15 mg, By Mouth, Daily, # 30 tablet, 0 Refills, Maintenance, 02/06/23 15:50:00 EDT, Tablet, [facility]/pharmacy #1972, Partial fill upon patient request if the prescription is for a schedule II opioid drug., 158, cm, 02/06/23 15:24:00 EDT, Height,... Start Date: 02/06/23 Stop Date: 03/06/23 Status: Ordered pramipexole 1 mg oral tablet 1.5 tablet, By Mouth, 3 times a day, # 135 tablet, 5 Refills, Maintenance, 09/18/22 8:41:00 EDT, [facility]/pharmacy #1972, 157.4, cm, 02/05/22 10:42:00 EDT, Height, [...] 15:20:00 EST, Route to Pharmacy Electronically, [facility]/pharmacy #1972, 156.5, cm, 02/18/23 10:06:00 [...] Professional Member Role: PCP Address: Address: [address] [place] [address]- Name: Grady Ortiz Position: [facility] Outreach Member Role: Lifetime Consulting Physician Address: Address: [address] [place] [address], [address] [address]- Care Team Related Persons Name: KELLEE BARRAGAN Name: ANUEL PARKER Address: [address] [place] [address] Name: ANUEL GU Address: [address] [place] [address] Name: KELLEE PEÑA Address: [address] [place] [address]
--- OUTSIDE RECORDS SUMMARY | 2024-02-06 12:44 | XMS_ITS | Continuity of Care Document ---
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 5Admin Note: immun records 6Admin Note: immun records 7Admin Note: immun records 8Admin Note: immun records 9Admin Note: immun records 10Admin Note: immun records 11Admin Note: immun records Medications Aspirin Low Dose 81 mg oral delayed release tablet 1 tablet, By Mouth, Daily, # 30 tablet, 2 Refills, [facility] ST[facility] 32900, 157.5, cm, 03/13/21 9:05:00 EST, Height, 76.3, kg, 03/12/20 13:32:00 EST, Dry Weight Start Date: 06/26/21 Status: Ordered baclofen 10 mg oral tablet 1, tablet, By Mouth, Daily at bedtime, # 30 tablet, Refills 2, Route to [facility]acy Electronically, [facility], 157.4, cm, 06/29/21 7:08:00 EST, Height, 77.6, kg, 06/29/21 7:08:00 EST, Dry Weight Start Date: 07/26/21 Status: Ordered calcium (as carbonate)-vitamin D 500 mg-400 intl units oral tablet 1 tablet, By Mouth, 2 times a day, # 180 tablet, 3 Refills, Maintenance, 11/09/20 8:38:00 EDT, Tablet, [id number], 1 tablet By Mouth 2 times a [...] # 30 tablet, 5 Refills, [facility], 157.5, cm, 03/13/21 9:05:00 EST, Height, 76.3, [...] # 135 tablet, 5 Refills, [facility], 157.4, cm, 08/10/21 9:43:00 EDT, Height, 77.6, [...] tablet, Refills 5, Route to Pharmacy Electronically, [facility] 07853, 157.4, cm, 06/29/21 7:08:00 EST, Height, 77.6, [...]
--- OUTSIDE RECORDS SUMMARY | 2024-02-06 12:44 | XMS_ITS | Continuity of Care Document ---
Author Organization [facility] Adult Address [address] [place] [address]- Care Team Providers Care Fill Manager Name Role Phone Annette Castillo NP Primary Care Physician [phone] Encounter [facility] Date[facility]s): 02/13/23 - 03/15/23 [facility] [address] [place] [address]- Allergies, Adverse Reactions, Alerts Substance Reaction Severity [...] virus vaccine, inactivated 6 01/24/12 Gi shakira [id number] 12y+ bivalent booster vax 03/02/22 Recorded SARS-CoV-2 [...] 09/29/07 Given 1Result Comment: [facility] [id number] 2Location History: pharmacy 3Location History: [facility] 4[facility]: [facility] 5Admin Note: immun records 6Admin Note: immun records 7Result Comment[facility] 8Admin Note: immun records 9Admin Note: immun records 10Admin Note: immun records 11Admin Note: immun records 12Admin Note: immun records Medications Aspirin Low Dose 81 mg oral delayed release tablet 1 tablet, By Mouth, Daily, # 30 tablet, 5 Refills, Maintenance, 10/16/22 7:11:00 EDT, [facility]/pharmacy #1972, 158, cm, 10/10/22 9:38:00 EDT, Height, 80.8, kg, 10/04/22 20:27:00 EDT, Dry Weight Start Date: 10/16/22 Status: Ordered baclofen 10 mg oral tablet 1, tablet, By Mouth, Daily at bedtime, # 90 tablet, Refills 1, Tot. Refills 1, Maintenance, 02/18/23 10:44:00 EDT, Route to Pharmacy Electronically, [facility]/pharmacy #1972, 156.5, cm, 02/18/23 10:06:00 EDT, [...] 3 Refills, Maintenance, 10/16/22 17:51:00 EDT, Tablet, [facility]/pharmacy #1972, 1 tablet By Mouth 2 times a day,x90 days, 158, cm, 10/10/22 9:38:00 EDT, Height, 80.8, kg, 10/04/22 20:27:00 EDT, Dry Weight Start Date: 10/16/22 Stop Date: 10/11/23 Status: Ordered gabapentin 600 mg oral tablet See Instructions, TAKE 1 TABLET BY MOUTH EVERY MORNING AND 1 TABLET EVERY NIGHT AT BEDTIME, # 60 tablet, 0 Refills, Maintenance, 03/12/23 15:33:00 EST, [facility]/pharmacy #1972, 156.5, cm, 02/18/23 10:06:00 EDT, Height, 77, kg, 02/04/23 0:27:00 EDT, Dry Weight Start Date: 03/12/23 Status: Ordered levothyroxine 0.088 mg oral tablet See Instructions, TAKE 1 TABLET BY MOUTH EVERY DAY, # 90 tablet, 1 Refills, Maintenance, 01/04/23 7:17:00 EDT, [facility], 158, cm, 10/10/22 9:38:00 EDT, Height, 80.8, kg, 10/04/22 20:27:00 EDT,Dry Weight Start Date: 01/04/23 Status: Ordered meloxicam 15 mg oral tablet 1 tablet = 15 mg, By Mouth, Daily, # 30 tablet, 0 Refills, Maintenance, 02/06/23 15:50:00 EDT, Tablet, [facility]/pharmacy #1972, Partial fill upon patient request [...] 03/14/23 15:20:00 EST, Route to Pharmacy Electronically, [facility]/pharmacy #1972, 156.5, cm, 02/18/23 10:06:00 EDT, [...] Care Nurse Name: Julissa Patel RN Position: [facility] RN Member Role: Primary Care Nurse Name: Olga Brooke RN Position: [facility] RN Member Role: Primary Care Nurse Name: Annette Castillo NP Position: [facility] PCO Associate Professional Member Role: PCP Address: Address: [address] [place] [address]- Name: Grady Ortiz Position: [facility] Outreach Member Role: Lifetime Consulting Physician Address: Address: [address] [place] [address]- Care Team Related Persons Name: KELLEE BARRAGAN Name: ANUEL PARKER Address: home [address] [place] [address] Name: ANUEL GU Address: [address] [place] [address] Name: KELLEE PEÑA Address: home [address] [place] [address]
--- OUTSIDE RECORDS SUMMARY | 2024-02-06 12:44 | XMS_ITS | Continuity of Care Document ---
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 Name Role Phone Cecilia SANTAMARIA, Leonarda Primary Care Physician [phone] Encounter [facility] Date(s): 05/07/19 - 08/23/19 [facility] [address] [place] [address]- [facility] Attending Physician: Lewis Goodrich MD Admitting [...] Maintenance, 03/04/19 15:42:41 EST,Route to Pharmacy Electronically, [id number], [facility]/pharmacy #[id number] Start Date: 03/04/19 Stop Date: 10/30/19 Status: Ordered baclofen 10 mg oral tablet See Instructions, TAKE 1 TABLET BY MOUTH EVERYDAY AT BEDTIME, # 90 tablet, Refills 0, Maintenance, Instructions Replace Required Details, Route to Pharmacy Electronically, [facility] STORE 98086, 158, cm, 07/30/19 12:49:00 EDT, Height, 77.2, kg, 05/20/19 20:... Start Date: 08/19/19 Status: Ordered calcium (as carbonate)-vitamin D 500 mg-400 intl units oral tablet 1 tablet, By Mouth, 2 times a day, # 60 tablet, 5 Refills, Maintenance, 05/26/19 13:08:00 EST, Tablet, [facility]/pharmacy #0993, 1 tablet By Mouth 2 times [...] 1 Refills, Maintenance, 08/03/19 9:15:00 EDT, Capsule, [facility], 158, cm, 07/30/19 12:49:00 EDT, Height, [...] # 180 tablet, 1 Refills, Maintenance, [facility] STORE 22245, 158, cm, 07/30/19 12:49:00 EDT, Height, 77.2, kg, 05/20/19 20:41:00 EST, Dry Weight Start Date: 08/12/19 Status: Ordered lactulose 10 gm/15 ml oral syrup 15 mL = 10 Gm, By Mouth, 2 times a day, PRN as needed for constipation, # 480 mL, 1 Refills, Maintenance, 07/27/19 12:04:00 EDT, Syrup, [facility]/pharmacy #0993, 15 mL By Mouth 2 times [...] 5 Refills, Maintenance, 05/08/19 15:54:00 EST, [facility]/pharmacy #0993, 157, cm, 05/07/19 16:41:00 EST, Height, [...] 8:23:00 EDT, Route to Pharmacy Electronically, [facility]/pharmacy #0993, 158, cm, 07/30/19 12:49:00 EDT, Height, [...]
--- OUTSIDE RECORDS SUMMARY | 2024-02-06 12:44 | XMS_ITS | Continuity of Care Document ---
Author Organization [facility] Adult Address [address] [place] [address]- Care Team Providers Care Outside Production Inspector Name Role Phone Cecilia SANTAMARIA, Leonarda Primary Care Physician [place] [facility] 07/[place]19 - 09/13/19 [facility] Adult [address] [place] [address]- [facility] Attending Physician: Not on Staff, Attending MD [...] Maintenance, 03/04/19 15:42:41 EST,Route to Pharmacy Electronically, [id number], [facility]/pharmacy #0993 Start Date: 03/04/19 Stop Date: 10/30/19 Status: Ordered baclofen 10 mg oral tablet See Instructions, TAKE 1 TABLET BY MOUTH EVERYDAY AT BEDTIME, # 90 tablet, Refills 0, Maintenance, Instructions Replace Required Details, Route to Pharmacy Electronically, [facility] STORE 53004, 158, cm, 07/30/19 12:49:00 EDT, Height, 77.2, kg, 05/20/19 20:... Start Date: 08/19/19 Status: Ordered calcium (as carbonate)-vitamin D 500 mg-400 intl units oral tablet 1 tablet, By Mouth, 2 times a day, # 60 tablet, 5 Refills, Maintenance, 05/26/19 13:08:00 EST, Tablet, [facility]/pharmacy #0993, 1 tablet By Mouth [...] 1 Refills, Maintenance, 08/03/19 9:15:00 EDT, Capsule, [facility]/pharmacy #0993, 158, cm, 07/30/19 12:49:00 [...] THEMID-AFTERNOON, # 180 tablet, 1 Refills, Maintenance, [facility] STORE 99875, 158, cm, 07/30/19 12:49:00 EDT, Height, 77.2, kg, 05/20/19 20:41:00 EST, Dry Weight Start Date: 08/12/19 Status: Ordered lactulose 10 gm/15 ml oral syrup 15 mL = 10 Gm, By Mouth, 2 times a day, PRN as needed for constipation, # 480 mL, 1 Refills, Maintenance, 07/27/19 12:04:00 EDT, Syrup, [facility]/pharmacy #0993, 15 mL By Mouth [...] tablet, 5 Refills, Maintenance, 05/08/19 15:54:00 EST, [facility]/pharmacy #0993, 157, cm, 05/07/19 16:41:00 [...] 08/12/19 8:23:00 EDT, Route to Pharmacy Electronically, [facility]/pharmacy #0993, 158, cm, 07/30/19 12:49:00 [...]
--- OUTSIDE RECORDS SUMMARY | 2024-02-06 12:44 | XMS_ITS | Continuity of Care Document ---
Author Organization [facility] Adult Address [address] [place] [address]- Care Team Providers Care Medical Records Administrator Name Role Phone Cecilia SANTAMARIA, Leonarda Primary Care Physician [phone] [place] [facility] [place] Date(s): 09/08/19 - 09/15/19 [facility] [address] [place] [address] [facility] Attending Physician: Leonarda Brooks NP Allergies, Adverse Reactions, [...] Maintenance, 03/04/19 15:42:41 EST,Route to Pharmacy Electronically, [id number], [facility]/pharmacy #[id number] Start Date: 03/04/19 Stop Date: 10/30/19 Status: Ordered baclofen 10 mg oral tablet See Instructions, TAKE 1 TABLET BY MOUTH EVERYDAY AT BEDTIME, # 90 tablet, Refills 0, Maintenance, Instructions Replace Required Details, Route to Pharmacy Electronically, [facility] STORE 71228, 158, cm, 07/30/19 12:49:00 EDT, Height, 77.2, kg, 05/20/19 20:... Start Date: 08/19/19 Status: Ordered calcium (as carbonate)-vitamin D 500 mg-400 intl units oral tablet 1 tablet, By Mouth, 2 times a day, # 60 tablet, 5 Refills, Maintenance, 05/26/19 13:08:00 EST, Tablet, [facility]/pharmacy #0993, 1 tablet By Mouth [...] 1 Refills, Maintenance, 08/03/19 9:15:00 EDT, Capsule, [facility]/pharmacy #0993, 158, cm, 07/30/19 12:49:00 [...] THEMID-AFTERNOON, # 180 tablet, 1 Refills, Maintenance, [facility] STORE 43334, 158, cm, 07/30/19 12:49:00 EDT, Height, 77.2, kg, 05/20/19 20:41:00 EST, Dry Weight Start Date: 08/12/19 Status: Ordered lactulose 10 gm/15 ml oral syrup 15 mL = 10 Gm, By Mouth, 2 times a day, PRN as needed for constipation, # 480 mL, 1 Refills, Maintenance, 07/27/19 12:04:00 EDT, Syrup, [facility]/pharmacy #0993, 15 mL By Mouth [...] tablet, 5 Refills, Maintenance, 05/08/19 15:54:00 EST, [facility]/pharmacy #0993, 157, cm, 05/07/19 16:41:00 [...] 8:23:00 EDT, Route to Pharmacy Electronically, [facility]/pharmacy #0993, 158, cm, 07/30/19 12:49:00 [...] oldest [Reference Range]: 1 Height 158 cm (09/08/19 10:27 AM) Social History Social History Type Response Smoking Status Former smoker; Type: Cigarettes; Tobacco use times per day: quit smoking 30 yrs ago; entered on: 06/25/15 Sex
--- OUTSIDE RECORDS SUMMARY | 2024-02-06 12:44 | XMS_ITS | Continuity of Care Document ---
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 3Admin Note: high dose done at [facility] 4Admin Note: immun records 5Admin Note: immun records 6Result Comment: [facility] 7Admin Note: immun records 8Admin Note: immun records 9Admin Note: immun records 10Admin Note: immun records 11Admin Note: immun records Medications aspirin 81 mg oral delayed release tablet = 81 mg, By Mouth, Daily, # 30 tablet, 3 Refills, Maintenance, 11/07/20 15:07:00 EDT, [facility] #[id number], 157, cm, 09/07/20 14:26:00 EDT, Height, 76.3, kg, 03/12/20 13:32:00 EST, Dry Weight Start Date: 11/07/20 Status: Ordered baclofen 10 mg oral tablet 1, tablet, By Mouth, Daily at bedtime, # 30 tablet, Refills 2, Route to Pharmacy Electronically, [facility] 00618, 157.5, cm, 11/09/20 8:24:00 EDT, Height, 76.3, kg, 03/12/20 13:32:00 EST, Dry Weight Start Date: 01/25/21 Status: Ordered calcium (as carbonate)-vitamin D 500 mg-400 intl units oral tablet 1 tablet, By Mouth, 2 times a day, # 180 tablet, 3 Refills, Maintenance, 11/09/20 8:38:00 EDT, Tablet, [facility] #[id number], 1 tablet By Mouth 2 times a day,x90 days, 157.5, cm, 11/09/20 8:24:00 EDT, Height, 76.3, kg, 03/12/20 13:32:00 EST, Dry Weight Start Date: 11/09/20 Stop Date: 11/04/21 Status: Ordered CeleBREX 200 mg oral capsule 1 capsule = 200 mg, By Mouth, 2 times a day, Until mail order is delivered, # 28 capsule, 0 Refills, Maintenance, 10/19/19 12:34:00 EDT, Capsule, [facility]/pharmacy #0993, 158, cm, 09/30/19 10:10:00 [...] 0 Refills, Maintenance, 11/12/19 16:33:00 EDT, Capsule, [facility]/pharmacy #0993, 158, cm, 11/12/19 15:02:00 [...] # 180 tablet, 0 Refills, [facility], 157.5, cm, 11/09/20 8:24:00 EDT, Height, 76.3, kg, 03/12/20 13:32:00 EST, Dry Weight Start Date: 12/30/20 Status: Ordered ipratropium nasal 21 mcg/inh spray See Instructions, SPRAY 2 SPRAYS INTO BOTH NOSTRILS 2 TIMES A DAY FOR 30 DAYS, # 30 Unknown, 0 Refills, [facility], 30, SPRAY 2 SPRAYS INTO BOTH NOSTRILS 2 TIMES A DAY FOR 30 DAYS, 157.5, cm, 11/09/20 8:24:00 EDT, Height, 76.3, kg, 03/12/20 13:32... Start Date: 01/23/21 Status: Ordered levothyroxine 0.088 mg oral tablet 1 tablet, By Mouth, Daily, # 30 tablet, 5 Refills, Maintenance, 12/01/20 11:20:00 EDT, [facility] STORE 16859, 157.5, cm, 11/09/20 8:24:00 EDT, Height, 76.3, kg, 03/12/20 13:32:00 EST, Dry Weight Start Date: 12/01/20 Status: Ordered Mirapex 1 mg oral tablet 1.5 tablet = 1.5 mg, By Mouth, 3 times a day, # 135 tablet, 5 Refills, Maintenance, 09/09/20 8:27:00 EDT, [facility] #[id number], 157, cm, 09/07/20 14:26:00 EDT, Height, 76.3, [...] tablet, Refills 5, Route to Pharmacy Electronically, [facility] 43185, 157.5, cm, 11/09/20 8:24:00 EDT, Height, 76.3, kg, 03/12/20 13:32:00 EST, Dry Weight Start Date: 01/25/21 Status: Ordered Zofran 4 mg oral tablet 1 tablet = 4 mg, By Mouth, Every 8 hours, PRN Nausea & Vomiting, # 10 tablet, 0 Refills, Maintenance, 03/13/20 9:49:00 EST, Tablet, [facility], Partial fill upon patient [...]
--- OUTSIDE RECORDS SUMMARY | 2024-02-06 12:44 | XMS_ITS | Continuity of Care Document ---
Author Organization [facility] Address [address] [place] [address]- Care Team Providers Care Boom Storage Name Role Phone Cecilia SANTAMARIA, Leonarda Primary Care Physician En[place] [facility] [place] Date(s): 05/07/19 - 08/23/19 [facility] [address] [place] [address] [facility] Attending Physician: Lewis Goodrich MD Admitting Physician: Lewis Goodrich MD Referring Physician: Lewis Goodrich MD Allergies, Adverse Reactions, Alerts Substance Reaction [...] [facility] 3Admin Note: high dose done at [facility] 4Admin Note: immun records 5Admin Note: immun records 6Admin Note: immun records 7Admin Note: immun records 8Admin Note: immun records 9Admin Note: immun records 10Admin Note: immun records Medications aspirin 81 mg oral delayed release tablet 81 mg, By Mouth, Daily, # 60 tablet, Refills 3, Tot. Refills 3, Maintenance, 03/04/19 15:42:41 EST,Route to Pharmacy Electronically, [id number], [facility]/pharmacy #[id number] Start Date: 03/04/19 Stop Date: 10/30/19 Status: Ordered baclofen 10 mg oral tablet See Instructions, TAKE 1 TABLET BY MOUTH EVERYDAY AT BEDTIME, # 90 tablet, Refills 0, Maintenance, Instructions Replace Required Details, Route to Pharmacy Electronically, [facility] STORE 87994, 158, cm, 07/30/19 12:49:00 EDT, Height, 77.2, kg, 05/20/19 20:... Start Date: 08/19/19 Status: Ordered calcium (as carbonate)-vitamin D 500 mg-400 intl units oral tablet 1 tablet, By Mouth, 2 times a day, # 60 tablet, 5 Refills, Maintenance, 05/26/19 13:08:00 EST, Tablet, [facility]/pharmacy #0993, 1 tablet By Mouth 2 times [...] 1 Refills, Maintenance, 08/03/19 9:15:00 EDT, Capsule, [facility]/pharmacy #0993, 158, cm, 07/30/19 12:49:00 EDT, Height, [...] THEMID-AFTERNOON, # 180 tablet, 1 Refills, Maintenance, [facility] STORE 17343, 158, cm, 07/30/19 12:49:00 EDT, Height, 77.2, kg, 05/20/19 20:41:00 EST, Dry Weight Start Date: 08/12/19 Status: Ordered lactulose 10 gm/15 ml oral syrup 15 mL = 10 Gm, By Mouth, 2 times a day, PRN as needed for constipation, # 480 mL, 1 Refills, Maintenance, 07/27/19 12:04:00 EDT, Syrup, [facility]/pharmacy #0993, 15 mL By Mouth 2 times [...] tablet, 5 Refills, Maintenance, 05/08/19 15:54:00 EST, [facility]/pharmacy #0993, 157, cm, 05/07/19 16:41:00 EST, Height, [...] 08/12/19 8:23:00 EDT, Route to Pharmacy Electronically, [facility]/pharmacy #0993, 158, cm, 07/30/19 12:49:00 EDT, Height, [...]
--- OUTSIDE RECORDS SUMMARY | 2024-02-06 12:44 | XMS_ITS | Continuity of Care Document ---
Author Organization [facility] Address [address] [place] [address]- Care Team Providers Care Insulation Applicator Name Role Phone Annette Castillo NP Primary Care Physician [phone] Encounter [facility] Date(s): 05/27/20 - 06/26/20 [facility] [address] [place] [address]- Allergies, Adverse Reactions, Alerts Substance Reaction Severity [...] tablet, 3 Refills, Maintenance, 04/08/20 8:32:00 EST, [facility] 20071, 164, cm, 03/17/20 16:43:00 EST, Height, 76.3, kg, 03/12/20 13:32:00 EST, Dry Weight Start Date: 04/08/20 Status: Ordered baclofen 10 mg oral tablet 10 mg, 1, tablet, By Mouth, Daily at bedtime, TAKE 1 TABLET BY MOUTH EVERYDAY AT BEDTIME, # 90 tablet, Refills 0, Tot. Refills 0, Maintenance, 05/24/20 9:11:00 EST, Route to Pharmacy Electronically, [facility] #[id number], Partial fill upon patient req... Start Date: 05/24/20 Status: Ordered calcium (as carbonate)-vitamin D 500 mg-400 intl units oral tablet 1 tablet, By Mouth, 2 times a day, # 180 tablet, 1 Refills, Maintenance, 05/05/20 16:26:00 EST, Tablet, [facility] #[id number], 1 tablet By Mouth 2 times a day, 164, cm, 03/17/20 16:43:00 EST, Height,76.3, kg, 03/12/20 13:32:00 EST, Dry Weight Start Date: 05/05/20 Status: Ordered CeleBREX 200 mg oral capsule 1 capsule = 200 mg, By Mouth, 2 times a day, Until mail order is delivered, # 28 capsule, 0 Refills, Maintenance, 10/19/19 12:34:00 EDT, Capsule, [facility]/pharmacy #0993, 158, cm, 09/30/19 [...] 0 Refills, Maintenance, 11/12/19 16:33:00 EDT, Capsule, [facility]/pharmacy #0993, 158, cm, 11/12/19 [...] 180 tablet, 0 Refills, 05/30/20 11:17:00 EST, [facility]/pharmacy #0993, 164, cm, 03/17/20 16:43:00 EST, Height, 76.3, kg, 03/12/20 13:32:00... Start Date: 05/30/20 Status: Ordered levothyroxine 0.088 mg oral tablet 1 tablet = 88 mcg, By Mouth, Daily, # 90 tablet, 1 Refills, Soft Stop, 03/07/20 15:20:00 EST, [facility] #[id number], 157.48, cm, 02/04/20 11:41:00 EDT, Height, 77.2, kg, 05/20/19 20:41:00 EST, Dry Weight Start Date: 03/07/20 Stop Date: 09/03/20 Status: Ordered Mirapex 1 mg oral tablet 1.5 tablet = 1.5 mg, By Mouth, 3 times a day, # 135 tablet, 4 Refills, Maintenance, 12/24/19 9:28:00 EDT, [facility] #[id number], 158, cm, 11/12/19 15:02:00 EDT, Height, 77.2, kg, 05/20/19 20:41:00 EST, Dry Weight Start Date: 12/24/19 Stop Date: 05/22/20 Status: Ordered MoviPrep oral powder for reconstitution 240 mL, By Mouth, Every 15 minutes, Dose #1 evening before colonoscopy and dose #2 is 6 hours before colonoscopy, # 1 each, 0 Refills, Acute 06/30/20 7:15:00 EST, 06/29/20 17:00:00 EST, REC Powder, [facility]/pharmacy #0993, test date 06/30/20. [...] 02/23/20 8:48:00 EDT, Route to Pharmacy Electronically, [facility] #[id number], 157.48, cm, 02/04/20 11:41:00 EDT, Height, 77.2, kg, 05/20/19 20:41:00 EST... Start Date: 02/23/20 Status: Ordered Zofran 4 mg oral tablet 1 tablet = 4 mg, By Mouth, Every 8 hours, PRN Nausea & Vomiting, # 10 tablet, 0 Refills, Maintenance, 03/13/20 9:49:00 EST, Tablet, [facility], Partial fill upon [...]
--- OUTSIDE RECORDS SUMMARY | 2024-02-06 12:44 | XMS_ITS | Continuity of Care Document ---
Author Organization [facility] Adult Address [address] [place] [address]- Care Team Providers Care Body Wirer Name Role Phone Annette Castillo NP Primary Care Physician [facility] Date[facility]): [facility] - 12/01/[address] [facility] Adult [address] [place] [address]- Allergies, Adverse Reactions, Alerts Substance Reaction Severity [...] [facility] 4[facility] Note: [facility] 5Admin Note: immun records 6Admin Note: immun records 7Admin Note: immun records 8Admin Note: immun records 9Admin Note: immun records 10Admin Note: immun records 11Admin Note: immun records Medications aspirin 81 mg oral delayed release tablet = 81 mg, By Mouth, Daily, # 30 tablet, 3 Refills, Maintenance, 11/07/20 15:07:00 EDT, [id number], 157, cm, 09/07/20 14:26:00 EDT, Height, 76.3, kg, 03/12/20 13:32:00 EST, Dry Weight Start Date: 11/07/20 Status: Ordered baclofen 10 mg oral tablet 10 mg, 1, tablet, By Mouth, Daily at bedtime, TAKE 1 TABLET BY MOUTH EVERYDAY AT BEDTIME, # 90 tablet, Refills 0, Tot. Refills 0, Maintenance, 11/09/20 8:38:00 EDT, Route to Pharmacy Electronically, [id number], Partial fill upon patient req... Start Date: 11/09/20 Stop Date: 02/07/21 Status: Ordered calcium (as carbonate)-vitamin D 500 mg-400 intl units oral tablet 1 tablet, By Mouth, 2 times a day, # 180 tablet, 3 Refills, Maintenance, 11/09/20 8:38:00 EDT, Tablet, [id number], 1 tablet By Mouth 2 times a [...] Refills, Acute 12/09/20 8:50:00 EDT,11/09/20 8:50:00 EDT, [place], [facility]/pharmacy #[id number], Partial fill upon patient request if the prescription is for a schedule II opioid drug., 2 sprays Nare... Start Date: 11/09/20 Stop Date: 12/09/20 Status: Ordered levothyroxine 0.088 mg oral tablet 1 tablet, By Mouth, Daily, # 30 tablet, 5 Refills, Maintenance, 12/01/20 11:20:00 EDT, [facility], 157.5, cm, 11/09/20 8:24:00 EDT, Height, 76.3, kg, 03/12/20 13:32:00 EST, Dry Weight Start Date: 12/01/20 Status: Ordered Mirapex 1 mg oral tablet 1.5 tablet = 1.5 mg, By Mouth, 3 times a day, # 135 tablet, 5 Refills, Maintenance, 09/09/20 8:27:00 EDT, [id number], 157, cm, 09/07/20 14:26:00 EDT, Height, 76.3, [...] EDT, Route to Pharmacy Electronically, [facility][id number], 157, cm, 06/30/20 10:07:00 EST, Height, 76.3, kg, 03/12/20 13:32:00 EST, Dry We... Start Date: 08/05/20 Status: Ordered Zofran 4 mg oral tablet 1 tablet = 4 mg, By Mouth, Every 8 hours, PRN Nausea & Vomiting, # 10 tablet, 0 Refills, Maintenance, 03/13/20 9:49:00 EST, Tablet, [facility], Partial fill upon patient [...]
--- OUTSIDE RECORDS SUMMARY | 2024-02-06 12:44 | XMS_ITS | Continuity of Care Document ---
Author Organization [facility] Adult Address [address] [place] [address]- Care Team Providers Care Ecg Technician Name Role Phone Annette Castillo NP Primary Care Physician [phone] [place] [facility] [place]): [place]10[place]21 - 08/17/21 [facility] Adult [address] [place] [address]- Encounter Diagnosis COVID-19(Discharge Diagnosis) - 08/10/21 Cough(Discharge Diagnosis) - 08/10/21 Attending Physician: Jerica Dominguez NP Allergies, Adverse Reactions, Alerts Substance Reaction [...] tetanus/diphtheria/pertussis, acel(Tdap) 11 09/29/07 Given 1Result Comment: [facility] 2Location History: pharmacy 3Location History: [facility] 4Admin Note: high dose done at [facility] 5Admin Note: immun records 6Admin Note: immun records 7Admin Note: immun records 8Admin Note: immun records 9Admin Note: immun records 10Admin Note: immun records 11Admin Note: immun records Medications Aspirin Low Dose 81 mg oral delayed release tablet 1 tablet, By Mouth, Daily, # 30 tablet, 2 Refills, [facility] ST[facility] 22135, 157.5, cm, 03/13/21 9:05:00 EST, Height, 76.3, kg, 03/12/20 13:32:00 EST, Dry Weight Start Date: 06/26/21 Status: Ordered baclofen 10 mg oral tablet 1, tablet, By Mouth, Daily at bedtime, # 30 tablet, Refills 2, Route to Pharmacy Electronically, [facility] STORE 02425, 157.4, cm, 06/29/21 7:08:00 EST, Height, 77.6, kg, 06/29/21 7:08:00 EST, Dry Weight Start Date: 07/26/21 Status: Ordered calcium (as carbonate)-vitamin D 500 mg-400 intl units oral tablet 1 tablet, By Mouth, 2 times a day, # 180 tablet, 3 Refills, Maintenance, 11/09/20 8:38:00 EDT, Tablet, [facility] #[id number], 1 tablet By Mouth 2 times a [...] # 30 tablet, 5 Refills, [facility], 157.5, cm, 03/13/21 9:05:00 EST, Height, 76.3, [...] # 135 tablet, 5 Refills, [facility], 157.5, cm, 11/09/20 8:24:00 EDT, Height, 76.3, kg, 03/12/20 13:32:00 EST, Dry Weight Start Date: 02/23/21 Status: Ordered Protonix 40 mg oral delayed release tablet 1 tablet = 40 mg, By Mouth, Daily, # 30 tablet, 1 Refills, Maintenance, 03/13/20 9:49:00 EST, EC Tablet, 164, cm, 03/13/20 6:58:00 EST, Height, 76.3, kg, 03/12/20 13:32:00 EST, Dry Weight Start Date: 03/13/20 Status: Ordered Tessalon Perles 100 mg oral capsule 1 capsule = 100 mg, By Mouth, 3 times a day, for 14 days, # 42 capsule, 0 Refills, Acute 08/25/21 12:44:00 EDT, 08/11/21 12:44:00 EDT, Capsule, [facility]/pharmacy #1972, Partial fill upon patient request if the prescription is for a schedule II opioid drug.... Start Date: 08/11/21 Stop Date: 08/25/21 Status: Ordered traZODone 100 mg oral tablet 1, tablet, By Mouth, Daily at bedtime, # 30 tablet, Refills 5, Route to [facility]ically, [facility], 157.4, cm, 06/29/21 7:08:00 EST, Height, 77.6, [...] Diagnosis Diagnosis Type Effective Dates Health Status [facility] Service Informant COVID-19 Discharge Diagnosis 08/10/21 Cough Discharge Diagnosis 08/10/21 Vital Signs Most recent to oldest [Reference Range]: 1 2 Height 157.4 cm (08/10/21 9:43 AM) 157.4 cm (08/10/21 9:05 AM) Pulse Rate [55-90 bpm] 70 bpm (08/10/21 9:43 AM) Blood Pressure [90-138/55-84 mm Hg] 110/ 58mm Hg (08/10/21 9:43 AM) Social History Social History Type Response Smoking Status Never (less than 100 in lifetime) entered on: 11/09/20 Sex
--- OUTSIDE RECORDS SUMMARY | 2024-02-06 12:44 | XMS_ITS | Continuity of Care Document ---
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 Name Role Phone Annette Castillo NP Primary Care Physician [facility] Date[facility]s): 10/09/22 - 10/16/22 [facility] Adult [address] [place] [address]- Attending Physician: Elvis Bolanos MD Allergies, Adverse Reactions, Alerts Substance Reaction [...] 08/20/20 Recorded SARS-CoV-2 (COVID-19) mRNA BNT-162b2 vac 4/3/21 Recorded Influenza Virus Vaccine (oldterm) 01/02/20 Recorde d Influenza Virus Vaccine (oldterm) 12/12/18 Recorde d pneumococcal 13-valent vaccine 07/22/15 Given pneumococcal 23-valent vaccine 8 01/29/14 Given influenza virus vaccine, live 9 01/28/14 Given Zoster Vaccine Live 06/17/13 Recorded Zostavax (oldterm) 10 06/16/13 Given tetanus/diphtheria/pertussis, acel(Tdap) 11 10/22/11 Given tetanus/diphtheria/pertussis, acel(Tdap) 04/29/11 Recorded tetanus/diphtheria/pertussis, acel(Tdap) 12 09/29/07 Given 1Result Comment: [facility] [id number] 2Location History: pharmacy 3Location History: [facility] 4Admin Note: high dose done at [facility] 5Admin Note: immun records 6Admin Note: immun records 7Result Comment: [facility] 8Admin Note: immun records 9Admin Note: immun records 10Admin Note: immun records 11Admin Note: immun records 12Admin Note: immun records Medications Aspirin Low Dose 81 mg oral delayed release tablet 1 tablet, By Mouth, Daily, # 30 tablet, 5 Refills, Maintenance, 10/16/22 7:11:00 EDT, [facility]/pharmacy #1972, 158, cm, 10/10/22 9:38:00 EDT, Height, 80.8, kg, 10/04/22 20:27:00 EDT, Dry Weight Start Date: 10/16/22 Status: Ordered baclofen 10 mg oral tablet 1, tablet, By Mouth, Daily at bedtime, # 30 tablet, Refills 1, Tot. Refills 1, Maintenance, 10/16/22 13:33:00 EDT, Route to Pharmacy Electronically, [facility]/pharmacy #1972, 158, cm, 10/10/22 9:38:00 EDT,Height, [...] 04/29/23 8:23:00 EST, 05/04/22 8:23:00 EST, [facility] #[id number], LABS NEEDED FOR FURTHER REFILLS, 157.4, cm, [...] EDT, Route to Pharmacy Electronically, [id number], 157.4, cm, 02/05/22 10:42:00 EDT, Height, 77.6, [...] CT 2Dexa 2014 osteopenia 3last dexa 2013 Vital Signs Most recent to oldest [Reference Range]: 1 2 3 Height 158 cm (10/10/22 9:38 AM) 158 cm (10/09/22 3:27 PM) 158 cm (10/09/22 2:50 PM) Weight 76.7 kg (10/10/22 9:38 AM) 76.7 kg (10/09/22 3:27 PM) 76.7 kg (10/09/22 2:50 PM) Oxygen Saturation [94-100 %] 91 % *L* (10/09/22 2:50 PM) Pulse Rate [55-90 bpm] 79 bpm (10/09/22 2:50 PM) Body Mass Index [18.5-24.99 kg/m2] 30.72 kg/m2 *>HHI* (10/09/22 2:50 PM) Blood Pressure [90-138/55-84 mm Hg] 95/60mm Hg (10/09/22 2:50 PM) Mode of Delivery (Oxygen) Room air (10/09/22 2:50 PM) Blood pressure sites Arm, right (10/09/22 2:50 PM) Weight Obtained Via Standing scale (10/09/22 2:50 PM) Social History Social History Type Response Smoking Status Never (less than 100 in lifetime) entered on: 11/09/20 Sex Note * Chata Purcell: PERFORM, SIGN, VERIFY Event Display: Patient Education/Instruction Authored Date: [id number] [facility] *[facility] [place] [facility] Clinical Summary Name HAWK PARKER Age 72 Years 1950 PCP Annette Castillo NP PCP Visit Date 10/09/2022 14:41:00 Additional Instructions: Scheduled Appointments?? Future Appointments ?No Future Appointments Scheduled Follow-Up Instructions ?? Diagnosis Medications: Please continue your medications until treatment is completed or stopped by your provider. Discuss any questions related to medications with your provider. New Medications [id number], [address], [place] [id number], [phone] Gabapentin (gabapentin 600 mg oral tablet) TAKE 1 TABLET BY MOUTH EVERY MORNING AND 1 TABLET EVERY NIGHT AT BEDTIME. Refills: 0. Next Dose: Medications to Continue with No Changes These medications were not printed or sent to your pharmacy Aspirin (Aspirin Low Dose 81 mg oral delayed release tablet) 1 tab(s) Oral Daily. Refills: 2. Next Dose: Baclofen (baclofen 10 mg oral tablet) 1 tab(s) Oral Daily at Bedtime. Refills: 2. Next Dose: Calcium And Vitamin D Combination (calcium (as carbonate)-vitamin D 500 mg-400 intl units oral tablet) 1 tab(s) Oral twice a day for 90 Days. Refills: 3. Next Dose: Levothyroxine (levothyroxine 0.088 mg oral tablet) 1 tab(s) Oral Daily for 90 Days. Refills: 3. Next Dose: Pantoprazole (Protonix 40 mg oral delayed release tablet) 1 tab(s) Oral Daily. Refills: 1. Next Dose: Pramipexole (pramipexole 1 mg oral tablet) 1.5 tab(s) Oral 3 times a day. Refills: 5. Next Dose: Trazodone (traZODone 100 mg oral tablet) 1 tab(s) Oral Daily at Bedtime. Refills: 5. Next Dose: Allergy Info:?? penicillins; morphine Medications Given This Visit Future Orders ?No future orders Vital Signs Height 158 cm Weight 76.7 kg BMI 30.72 kg/m2 Blood Pressure 95 mm Hg/60 mm Hg Temperature Pulse Rate 79 bpm Respiratory Rate 02 Sat Mode of Delivery 91 %/Room air You can now view a summary of your hospital visit from the comfort of your home through a free online portal called [facility]. [facility] is a website that allows you to securely view your medical information including discharge summary, medications and follow-up visits. ??You can alsosend a secure electronic message to your doctor???s office to request appointments, renew medications or just ask a question. You can enroll at [email or web address] or register during your next office [...] primary care provider, you may find a [facility] provider by calling [facility] Link at [phone]. For information about the plan of care [...] Personnel Name: Angie Pope Position: [facility] Onco RN Member Role: Primary Care Nurse Name: Julissa Patel RN Position: [facility] RN Member Role: Primary Care Nurse Name: Boubacar Dumont RN Position: [facility] RN Member Role: Primary Care Nurse Name: Annette Castillo NP Position: [facility] PCO Associate Professional Member Role: PCP Address: Address: [address] [place] [address] Name: Grady Ortiz Position: [facility] Outreach Member Role: Lifetime Consulting Physician Address: Address: [address] [place] [id number] Care Team Related Persons Name: ANUEL PARKER Address: home [address] [place] [id number] Name: ANUEL GU Address: home [address] [place] [address] Name: KELLEE PEÑA Address: home [address] [place] [address]
--- OUTSIDE RECORDS SUMMARY | 2024-02-06 12:44 | XMS_ITS | Continuity of Care Document ---
Author Organization [facility] Adult Address [address] [place] [address]- Care Team Providers Care Rheumatologist Name Role Phone Annette Castillo NP Primary Care Physician [facility]): 09/30/20 - 10/30/20 [facility] Adult [address] [place] [address]- Allergies, Adverse Reactions, Alerts Substance Reaction Severity [...] Refills, Maintenance, 04/08/20 8:32:00 EST, [facility], 164, cm, 03/17/20 16:43:00 EST, Height, 76.3, kg, 03/12/20 13:32:00 EST, Dry Weight Start Date: 04/08/20 Status: Ordered baclofen 10 mg oral tablet 10 mg, 1, tablet, By Mouth, Daily at bedtime, TAKE 1 TABLET BY MOUTH EVERYDAY AT BEDTIME, # 90 tablet, Refills 0, Tot. Refills 0, Maintenance, 08/05/20 12:52:00 EDT, Route to Pharmacy Electronically,[id number], Partial fill upon patient re... Start Date: 08/05/20 Status: Ordered calcium (as carbonate)-vitamin D 500 mg-400 intl units oral tablet 1 tablet, By Mouth, 2 times a day, # 180 tablet, 1 Refills, Maintenance, 05/05/20 16:26:00 EST, Tablet, [facility] #[id number], 1 tablet By Mouth 2 times a day, 164, cm, 03/17/20 16:43:00 EST, Height,76.3, kg, 03/12/20 13:32:00 EST, Dry Weight Start Date: 05/05/20 Status: Ordered CeleBREX 200 mg oral capsule 1 capsule = 200 mg, By Mouth, 2 times a day, Until mail order is delivered, # 28 capsule, 0 Refills, Maintenance, 10/19/19 12:34:00 EDT, Capsule, [facility]/pharmacy #[id number], 158, cm, 09/30/19 10:10:00 EDT, Height, [...] 0 Refills, Maintenance, 11/12/19 16:33:00 EDT, Capsule, [facility]/pharmacy #[id number], 158, cm, 11/12/19 15:02:00 EDT, Height, [...] tablet, 0 Refills, Maintenance, 09/27/20 14:38:00 EDT, [facility]/pharmacy #0993, 157, cm, 09/07/20 14:26:00 EDT, Height, 76.3, kg, 03/12... Start Date: 09/27/20 Status: Ordered levothyroxine 0.088 mg oral tablet 1 tablet, By Mouth, Daily, # 30 tablet, 2 Refills, Maintenance, 09/09/20 8:28:00 EDT, [facility] #[id number], Rx resent from 09/05, 157, cm, 09/07/20 14:26:00 EDT, Height, 76.3, kg, 03/12/20 13:32:00 EST, Dry Weight Start Date: 09/09/20 Status: Ordered Mirapex 1 mg oral tablet 1.5 tablet = 1.5 mg, By Mouth, 3 times a day, # 135 tablet, 5 Refills, Maintenance, 09/09/20 8:27:00 EDT, [facility] #[id number], 157, cm, 09/07/20 14:26:00 EDT, Height, 76.3, [...] EDT, Route to Pharmacy Electronically, [facility] #[id number], 157, cm, 06/30/20 10:07:00 EST, Height, 76.3, kg, 03/12/20 13:32:00 EST, Dry We... Start Date: 08/05/20 Status: Ordered Zofran 4 mg oral tablet 1 tablet = 4 mg, By Mouth, Every 8 hours, PRN Nausea & Vomiting, # 10 tablet, 0 Refills, Maintenance, 03/13/20 9:49:00 EST, Tablet, [facility], Partial fill upon patient [...]
--- OUTSIDE RECORDS SUMMARY | 2024-02-06 12:44 | XMS_ITS | Continuity of Care Document ---
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 Role Phone Annette Castillo NP Primary Care Physician [facility] 02/16/22 - 03/18/22 [facility] Adult [address] [place] [address]- Allergies, Adverse Reactions, Alerts Substance Reaction Severity [...] tetanus/diphtheria/pertussis, acel(Tdap) 12 09/29/07 Given [id number] 2Location History: pharmacy 3Location History: [facility] 4Admin Note: high dose done at [facility] 5Admin Note: immun records 6Admin Note: immun records 7Result Comment: [facility] 8Admin Note: immun records 9Admin Note: immun records 10Admin Note: immun records 11Admin Note: immun records 12Admin Note: immun records Medications Aspirin Low Dose 81 mg oral delayed release tablet 1 tablet, By Mouth, Daily, # 30 tablet, 2 Refills, Maintenance, 12/27/21 14:13:00 EDT, [facility] STORE 38778, 157.4, cm, 08/10/21 9:43:00 EDT, Height, 77.6, kg, 06/29/21 7:08:00 EST, Dry Weight Start Date: 12/27/21 Status: Ordered baclofen 10 mg oral tablet 1, tablet, By Mouth, Daily at bedtime, # 30 tablet, Refills 2, Tot. Refills 2, Maintenance, 02/05/22 11:24:00 EDT, Route to Pharmacy Electronically, [id number], 157.4, cm, 02/05/22 10:42:00 EDT, Height, 77.6, kg, 06/29/21 7:08:00 EST, Dry W... Start Date: 02/05/22 Status: Ordered calcium (as carbonate)-vitamin D 500 mg-400 intl units oral tablet 1 tablet, By Mouth, 2 times a day, # 180 tablet, 3 Refills, Maintenance, 11/09/20 8:38:00 EDT, Tablet, [facility] #[id number], 1 tablet By Mouth 2 times a [...] compliance data capabilities and followi... Start Date: 11/3/17 Status: Ordered gabapentin 600 mg oral tablet [...] 2 Refills, 02/05/22 11:24:00 EDT, [id number], LABS NEEDED FOR FURTHER REFILLS, 157.4, cm, [...] Refills, Maintenance, 02/26/22 15:10:00 EDT, [facility], 157.4, cm, 02/05/22 10:42:00 EDT, Height, 77.6, [...] tablet, Refills 1, Tot. Refills 1, Maintenance, 02/05/22 11:25:00 EDT, Route to Pharmacy Electronically, [id number], 157.4, cm, 02/05/22 10:42:00 EDT, Height, 77.6, kg, 06/29/21 7:08:00 EST, Dry W... Start Date: 02/05/22 Status: Ordered Problem List Condition Confirmation Course [...] team information Care Team Personnel Name: Angie Ppoe Position: [facility] Onco RN Member Role: Primary Care Nurse Name: Olga Brooke RN Position: [facility] RN Member Role: Primary Care Nurse Name: Annette Castillo NP Position: [facility] PCO Associate Professional Member Role: PCP Address: Address: [address] [place] [id number]- Name: Grady Ortiz Position: [facility] Outreach Member Role: Lifetime Consulting Physician Address: Address: [address] [place] [id number]- Care Team Related Persons Name: ANUEL PARKER Address: home [address] [place] [address] Name: KELLEE PEÑA Address: [address] [place] [address]
--- OUTSIDE RECORDS SUMMARY | 2024-02-06 12:44 | XMS_ITS | Continuity of Care Document ---
Author Organization [facility] Address [address] [place] [address]- Care Team Providers Care Beer Brewer Name Role Phone Swapnil SANTAMARIA, Annette Primary Care Physician [phone] [facility] 10[facility]19 - 11/20/19 [facility] [address] [place] [address] [facility] Attending Physician: Lewis Goodrich MD [...] Replace Required Details, Route to Pharmacy Electronically, [facility] STORE 30850, 158, cm, 07/30/19 12:49:00 EDT, Height, 77.2, kg, 05/20/19 20:... Start Date: 08/19/19 Status: Ordered calcium (as carbonate)-vitamin D 500 mg-400 intl units oral tablet 1 tablet, By Mouth, 2 times a day, # 180 tablet, 1 Refills, Maintenance, 10/27/19 9:07:00 EDT, Tablet, [facility] #[id number], 1 tablet By Mouth 2 times a day, 158, cm, 09/30/19 10:10:00 EDT, Height, 77.2, kg, 05/20/19 20:41:00 EST, Dry Weight Start Date: 10/27/19 Status: Ordered CeleBREX 200 mg oral capsule 1 capsule = 200 mg, By Mouth, 2 times a day, Take with food to avoid upset stomach, # 180 capsule, 0 Refills, Maintenance, 10/19/19 12:33:00 EDT, Capsule, [facility] #[id number], 158, cm, 09/30/19 10:10:00 EDT, Height, 77.2, kg, 05/20/19 20:41:00 EST,... Start Date: 10/19/19 Stop Date: 01/17/20 Status: Ordered CeleBREX 200 mg oral capsule 1 capsule = 200 mg, By Mouth, 2 times a day, Until mail order is delivered, # 28 capsule, 0 Refills, Maintenance, 10/19/19 12:34:00 EDT, Capsule, [facility]/pharmacy #0993, 158, cm, 09/30/19 [...] THEMID-AFTERNOON, # 180 tablet, 1 Refills, Maintenance, [facility] STORE 59645, 158, cm, 07/30/19 12:49:00 EDT, Height, 77.2, [...] 1 Refills, Soft Stop, 09/28/19 11:17:00 EDT, [facility]/pharmacy #0993, 158, cm, 09/08/19 10:27:00 EDT, Height, 77.2, kg, 05/20/19 20:41:00 EST, Dry Weight Start Date: 09/28/19 Stop Date: 03/26/20 Status: Ordered Mirapex 1 mg oral tablet 1.5 tablet = 1.5 mg, By Mouth, 3 times a day, # 135 tablet, 5 Refills, Maintenance, 05/08/19 15:54:00 EST, [facility]/pharmacy #0993, 157, cm, 05/07/19 [...] 08/12/19 8:23:00 EDT, Route to Pharmacy Electronically, [facility]/pharmacy #0993, 158, cm, 07/30/19 [...]
--- OUTSIDE RECORDS SUMMARY | 2024-02-06 12:45 | XMS_ITS | Continuity of Care Document ---
Author Organization [facility] Address [address] [place] [address]- Care Team Providers Care Limo Driver Name Role Phone Annette Castillo NP Primary Care Physician Encounter [facility] Date(s): 06/30/21 - 07/30/21 [facility] [address] [place] [id number]- [place] Allergies, Adverse Reactions, Alerts Substance Reaction [...] [facility] 4Admin Note: high dose done at [facility] 5Admin Note: immun records 6Admin Note: immun records 7Admin Note: immun records 8Admin Note: immun records 9Admin Note: immun records 10Admin Note: immun records 11Admin Note: immun records Medications Aspirin Low Dose 81 mg oral delayed release tablet 1 tablet, By Mouth, Daily, # 30 tablet, 2 Refills, [facility] ST[facility] 20763, 157.5, cm, 03/13/21 9:05:00 EST, Height, 76.3, kg, 03/12/20 13:32:00 EST, Dry Weight Start Date: 06/26/21 Status: Ordered baclofen 10 mg oral tablet 1, tablet, By Mouth, Daily at bedtime, # 30 tablet, Refills 2, Route to Pharmacy Electronically, [facility], 157.4, cm, 06/29/21 7:08:00 EST, Height, 77.6, kg, 06/29/21 7:08:00 EST, Dry Weight Start Date: 07/26/21 Status: Ordered calcium (as carbonate)-vitamin D 500 mg-400 intl units oral tablet 1 tablet, By Mouth, 2 times a day, # 180 tablet, 3 Refills, Maintenance, 11/09/20 8:38:00 EDT, Tablet, [id number], 1 tablet By Mouth 2 times a [...] # 30 tablet, 5 Refills, [facility], 157.5, cm, 03/13/21 9:05:00 EST, Height, 76.3, kg, 03/12/20 13:32:00 EST, Dry Weight Start Date: 05/25/21 Status: Ordered Multivitamin With Minerals By Mouth, 0 Refills, Maintenance Start Date: 04/02/11 Status: Ordered pramipexole 1 mg oral tablet 1.5 tablet, By Mouth, 3 times a day, # 135 tablet, 5 Refills, [facility], 157.5, cm, 11/09/20 8:24:00 EDT, Height, 76.3, [...] 5, Route to Pharm[facility] Electronically, [facility], 157.4, cm, 06/29/21 7:08:00 EST, Height, 77.6, [...]
--- OUTSIDE RECORDS SUMMARY | 2024-02-06 12:45 | XMS_ITS | Continuity of Care Document ---
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 Name Role Phone Annette Castillo NP Primary Care Physician Encounter [facility] Date(s): 09/07/20 - 09/14/[address] [place] [address]- Attending Physician: Stan Graf MD Referring Physician: Annette Castillo NP Allergies, [...] [facility] 4Admin Note: [facility] 5Admin Note: immun records 6Admin Note: immun records 7Admin Note: immun records 8Admin Note: immun records 9Admin Note: immun records 10Admin Note: immun records 11Admin Note: immun records Medications aspirin 81 mg oral delayed release tablet = 81 mg, By Mouth, Daily, # 30 tablet, 3 Refills, Maintenance, 04/08/20 8:32:00 EST, [facility], 164, cm, 03/17/20 16:43:00 EST, Height, 76.3, kg, 03/12/20 13:32:00 EST, Dry Weight Start Date: 04/08/20 Status: Ordered baclofen 10 mg oral tablet 10 mg, 1, tablet, By Mouth, Daily at bedtime, TAKE 1 TABLET BY MOUTH EVERYDAY AT BEDTIME, # 90 tablet, Refills 0, Tot. Refills 0, Maintenance, 08/05/20 12:52:00 EDT, Route to Pharmacy Electronically,[facility] #[id number], Partial fill upon patient re... Start Date: 08/05/20 Status: Ordered calcium (as carbonate)-vitamin D 500 mg-400 intl units oral tablet 1 tablet, By Mouth, 2 times a day, # 180 tablet, 1 Refills, Maintenance, 05/05/20 16:26:00 EST, Tablet, [facility] #[id number], 1 tablet By Mouth 2 times a day, 164, cm, 03/17/20 16:43:00 EST, Height,76.3, kg, 03/12/20 13:32:00 EST, Dry Weight Start Date: 05/05/20 Status: Ordered CeleBREX 200 mg oral capsule 1 capsule = 200 mg, By Mouth, 2 times a day, Until mail order is delivered, # 28 capsule, 0 Refills, Maintenance, 10/19/19 12:34:00 EDT, Capsule, [facility]/pharmacy #[id number], 158, cm, 09/30/19 10:10:00 EDT, Height, [...] 0 Refills, 09/12/20 10:16:00 EDT, [id number], 157, cm, 09/07/20 14:26:00 EDT, Height, 76.3, kg, 03/12/20 13:32:... Start Date: 09/12/20 Status: Ordered levothyroxine 0.088 mg oral tablet 1 tablet, By Mouth, Daily, # 30 tablet, 2 Refills, Maintenance, 09/09/20 8:28:00 EDT, [id number], Rx resent from 09/05, 157, cm, 09/07/20 14:26:00 EDT, Height, 76.3, kg, 03/12/20 13:32:00 EST, Dry Weight Start Date: 09/09/20 Status: Ordered Mirapex 1 mg oral tablet 1.5 tablet = 1.5 mg, By Mouth, 3 times a day, # 135 tablet, 5 Refills, Maintenance, 09/09/20 8:27:00 EDT, [id number], 157, cm, 09/07/20 14:26:00 EDT, Height, 76.3, [...] EDT, Route to Pharmacy Electronically, [id number], 157, cm, 06/30/20 10:07:00 EST, Height, 76.3, kg, 03/12/20 13:32:00 EST, Dry We... Start Date: 08/05/20 Status: Ordered Zofran 4 mg oral tablet 1 tablet = 4 mg, By Mouth, Every 8 hours, PRN Nausea & Vomiting, # 10 tablet, 0 Refills, Maintenance, 03/13/20 9:49:00 EST, Tablet, [facility], Partial fill upon patient [...] oldest [Reference Range]: 1 Height 157 cm (09/07/20 2:26 PM) Weight 80.6 kg (09/07/20 2:26 PM) Pulse Rate [55-90 bpm] 75 bpm (09/07/20 2:26 PM) Body Mass Index [18.5-24.99] 32.7 *>HHI* (09/07/20 2:26 PM) Blood Pressure [90-138/55-84 mm Hg] 101/ 67mm Hg (09/07/20 2:26 PM) Temperature [96.8-100.4 DegF] 98.6 DegF (09/07/20 2:26 PM) Social History Social History Type Response Smoking Status Former smoker; Type: Cigarettes; Tobacco use times per day: quit smoking 30 yrs ago; entered on: 06/25/15 Sex
--- OUTSIDE RECORDS SUMMARY | 2024-02-06 12:45 | XMS_ITS | Continuity of Care Document ---
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 Name Role Phone Annette Castillo NP Primary Care Physician [phone] Encounter [facility] Date(s): 03/24/21 - 04/23/21 [facility] [address] [place] [address]- Allergies, Adverse Reactions, Alerts Substance Reaction Severity [...] [facility] 4Admin Note: high dose done at [facility] 5Admin Note: immun records 6Admin Note: immun records 7Admin Note: immun records 8Admin Note: immun records 9Admin Note: immun records 10Admin Note: immun records 11Admin Note: immun records Medications Aspirin Low Dose 81 mg oral delayed release tablet 1 tablet, By Mouth, Daily, # 30 tablet, 3 Refills, [facility] STORE 46706, 157.5, cm, 11/09/20 8:24:00 EDT, Height, 76.3, kg, 03/12/20 13:32:00 EST, Dry Weight Start Date: 02/23/21 Status: Ordered baclofen 10 mg oral tablet 1, tablet, By Mouth, Daily at bedtime, # 30 tablet, Refills 2, Route to Pharmacy Electronically, [facility] STORE 45663, 157.5, cm, 11/09/20 8:24:00 EDT, Height, 76.3, kg, 03/12/20 13:32:00 EST, Dry Weight Start Date: 01/25/21 Status: Ordered calcium (as carbonate)-vitamin D 500 mg-400 intl units oral tablet 1 tablet, By Mouth, 2 times a day, # 180 tablet, 3 Refills, Maintenance, 11/09/20 8:38:00 EDT, Tablet, [id number], 1 tablet By Mouth 2 times a [...] Stop 02/07/22 10:33:00 EDT, 02/07/21 10:32:00 EDT, [facility]/pharmacy #[id number], SPRAY 2 SPRAYS INTO BOTH [...] 05/12/21 9:23:00 EST, 03/13/21 9:23:00 EST, Syrup, [facility]/pharmacy #[id number], Partial fill upon patient request if the prescript... Start Date: 03/13/21 Stop Date: 05/12/21 Status: Ordered levothyroxine 0.088 mg oral tablet 1 tablet, By Mouth, Daily, # 30 tablet, 5 Refills, Maintenance, 12/01/20 11:20:00 EDT, [facility] STORE 35308, 157.5, cm, 11/09/20 8:24:00 EDT, Height, 76.3, kg, 03/12/20 13:32:00 EST, Dry Weight Start Date: 12/01/20 Status: Ordered Multivitamin With Minerals By Mouth, 0 Refills, Maintenance Start Date: 04/02/11 Status: Ordered NuLYTELY with Flavor Packs oral powder for reconstitution 240 mL, By Mouth, Every 10 minutes, see split prep instructions, # 4,000 mL, 0 Refills, Maintenance, 03/30/21 9:54:00 EST, REC Powder, [facility]/pharmacy #1972, Partial fill upon patient request if the prescription is for a schedule II opioid drug., 240 mL... Start Date: 03/30/21 Status: Ordered pramipexole 1 mg oral tablet 1.5 tablet, By Mouth, 3 times a day, # 135 tablet, 5 Refills, [facility], 157.5, cm, 11/09/20 8:24:00 EDT, Height, 76.3, [...] tablet, Refills 5, Route to Pharmacy Electronically, [facility] 72453, 157.5, cm, 11/09/20 8:24:00 EDT, Height, 76.3, kg, 03/12/20 13:32:00 EST, Dry Weight Start Date: 01/25/21 Status: Ordered Zofran 4 mg oral tablet 1 tablet = 4 mg, By Mouth, Every 8 hours, PRN Nausea & Vomiting, # 10 tablet, 0 Refills, Maintenance, 03/13/20 9:49:00 EST, Tablet, [facility], Partial fill upon patient [...]
--- OUTSIDE RECORDS SUMMARY | 2024-02-06 12:45 | XMS_ITS | Continuity of Care Document ---
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 Refills 0, Maintenance, 05/24/20 9:11:00 EST, Route to Pharmacy Electronically, [email or web address] #[id number], Partial fill upon patient req... Start Date: 05/24/20 Status: Ordered calcium (as carbonate)-vitamin D 500 mg-400 intl units oral tablet 1 tablet, By Mouth, 2 times a day, # 180 tablet, 1 Refills, Maintenance, 05/05/20 16:26:00 EST, Tablet, [facility] #[id number], 1 tablet By Mouth 2 times a [...] 180 tablet, 0 Refills, 05/30/20 11:17:00 EST, [facility]/pharmacy #[id number], 164, cm, 03/17/20 16:43:00 EST, Height, 76.3, kg, 03/12/20 13:32:00... Start Date: 05/30/20 Status: Ordered levothyroxine 0.088 mg oral tablet 1 tablet = 88 mcg, By Mouth, Daily, # 90 tablet, 1 Refills, Soft Stop, 03/07/20 15:20:00 EST, [facility] #[id number], 157.48, cm, 02/04/20 11:41:00 EDT, Height, 77.2, kg, 05/20/19 20:41:00 EST, Dry Weight Start Date: 03/07/20 Stop Date: 09/03/20 Status: Ordered Mirapex 1 mg oral tablet 1.5 tablet = 1.5 mg, By Mouth, 3 times a day, # 135 tablet, 4 Refills, Maintenance, 12/24/19 9:28:00 EDT, [facility] #[id number], 158, cm, 11/12/19 15:02:00 EDT, Height, 77.2, [...] EDT, Route to Pharmacy Electronically, [facility][id number], 157.48, cm, 02/04/20 11:41:00 EDT, Height, 77.2, kg, 05/20/19 20:41:00 EST... Start Date: 02/23/20 Status: Ordered Zofran 4 mg oral tablet 1 tablet = 4 mg, By Mouth, Every 8 hours, PRN Nausea & Vomiting, # 10 tablet, 0 Refills, Maintenance, 03/13/20 9:49:00 EST, Tablet, [facility], Partial fill upon patient request, [...]
--- OUTSIDE RECORDS SUMMARY | 2024-02-06 12:45 | XMS_ITS | Continuity of Care Document ---
Author Organization [facility] Adult Address [address] [place] [address]- Care Team Providers Care Facility Manager Name Role Phone Annette Castillo NP Primary Care Physician [phone] Encounter [facility] Date(s): 10/15/22 - 11/14/22 [facility] [address] [place] [address]- Allergies, Adverse Reactions, Alerts Substance Reaction Severity [...] 09/29/07 Given 1Result Comment: [facility] [id number] 2Location History: pharmacy 3Location History: [facility] 4Admin Note: high dose done at [facility] 5Admin Note: immun records 6Admin Note: immun records 7Result Comment: [facility] 8Admin Note: immun records 9Admin Note: immun records 10Admin Note: immun records 11Admin Note: immun records 12Admin Note: immun records Medications Aspirin Low Dose 81 mg oral delayed release tablet 1 tablet, By Mouth, Daily, # 30 tablet, 5 Refills, Maintenance, 10/16/22 7:11:00 EDT, [facility]/pharmacy #1972, 158, cm, 10/10/22 9:38:00 EDT, Height, 80.8, kg, 10/04/22 20:27:00 EDT, Dry Weight Start Date: 10/16/22 Status: Ordered baclofen 10 mg oral tablet 1, tablet, By Mouth, Daily at bedtime, # 30 tablet, Refills 1, Tot. Refills 1, Maintenance, 10/16/22 13:33:00 EDT, Route to Pharmacy Electronically, [facility]/pharmacy #1972, 158, cm, [...] 04/29/23 8:23:00 EST, 05/04/22 8:23:00 EST, [facility] #[id number], LABS NEEDED FOR FURTHER REFILLS, 157.4, cm, [...] EDT, Route to Pharmacy Electronically, [id number], 157.4, cm, 02/05/22 10:42:00 EDT, Height, 77.6, [...] Care Team Personnel Name: Angie Pope Position: [facility] Onco RN Member Role: Primary Care Nurse Name: Julissa Patel RN Position: [facility] RN Member Role: Primary Care Nurse Name: Boubacar Dumont RN Position: [facility] RN Member Role: Primary Care Nurse Name: Annette Castillo NP Position: [facility] PCO Associate Professional Member Role: PCP Address: Address: [address] [place] [address]- Name: Grady Ortiz Position: [facility] Outreach Member Role: Lifetime Consulting Physician Address: Address: [address] [place] [address]- Care Team Related Persons Name: ANUEL PARKER Address: [address] [place] [address] Name: ANUEL GU Address: [address] [place], [place] Name: KELLEE PEÑA Address: [address] [place] [address]
--- OUTSIDE RECORDS SUMMARY | 2024-02-06 12:45 | XMS_ITS | Continuity of Care Document ---
Author Organization [facility] Adult Address [address] [place] [address]- Care Team Providers Care Institution Librarian Name Role Phone Annette Castillo NP Primary Care Physician [facility] Date[facility]s): 03/18/20 - 04/17/20 [facility] [address] [place] [address]- Allergies, Adverse Reactions, Alerts Substance Reaction Severity [...] Refills, Maintenance, 04/08/20 8:32:00 EST, [facility], 164, cm, 03/17/20 16:43:00 EST, Height, 76.3, [...] 04/04/20 15:28:00 EST, Route to Pharmacy Electronically, [facility] #[id number], 164, cm, 03/17/20 16:43:00 EST, He... Start Date: 04/04/20 Stop Date: 05/04/20 Status: Ordered calcium (as carbonate)-vitamin D 500 mg-400 intl units oral tablet 1 tablet, By Mouth, 2 times a day, # 180 tablet, 1 Refills, Maintenance, 10/27/19 9:07:00 EDT, Tablet, [facility] #[id number], 1 tablet By Mouth 2 times a day, 158, cm, 09/30/19 10:10:00 EDT, Height, 77.2, kg, 05/20/19 20:41:00 EST, Dry Weight Start Date: 10/27/19 Status: Ordered CeleBREX 200 mg oral capsule 1 capsule = 200 mg, By Mouth, 2 times a day, Until mail order is delivered, # 28 capsule, 0 Refills, Maintenance, 10/19/19 12:34:00 EDT, Capsule, [facility]/pharmacy #[id number], 158, cm, 09/30/19 10:10:00 [...] Refills, Maintenance, 11/12/19 16:33:00 EDT, Capsule, [facility]/pharmacy #0993, 158, cm, 11/12/19 15:02:00 [...] 180 tablet, 0 Refills, 03/02/20 8:56:00 EST, [facility]/pharmacy #0993, 157.48, cm, 02/04/20 11:41:00 EDT, Height, 77.2, kg, 05/20/19 20:41:0... Start Date: 03/02/20 Status: Ordered levothyroxine 0.088 mg oral tablet 1 tablet = 88 mcg, By Mouth, Daily, # 90 tablet, 1 Refills, Soft Stop, 03/07/20 15:20:00 EST, [facility] #[id number], 157.48, cm, 02/04/20 11:41:00 EDT, Height, 77.2, kg, 05/20/19 20:41:00 EST, Dry Weight Start Date: 03/07/20 Stop Date: 09/03/20 Status: Ordered Mirapex 1 mg oral tablet 1.5 tablet = 1.5 mg, By Mouth, 3 times a day, # 135 tablet, 4 Refills, Maintenance, 12/24/19 9:28:00 EDT, [facility] #[id number], 158, cm, 11/12/19 15:02:00 EDT, Height, 77.2, [...] EDT, Route to Pharmacy Electronically, [facility] #[id number], 157.48, cm, 02/04/20 11:41:00 EDT, Height, 77.2, [...]
--- OUTSIDE RECORDS SUMMARY | 2024-02-06 12:45 | XMS_ITS | Continuity of Care Document ---
Author Organization [facility] Adult Address [address] [place] [address]- Care Team Providers Care Backpackers Manager Name Role Phone Annette Castillo NP Primary Care Physician [phone] [facility]counter [facility] Date[facility]s): 04/15/23 - 05/15/23 [facility] [address] [place] [address]- Allergies, Adverse Reactions, Alerts Substance Reaction Severity Status morphine 1 Persistent Moderate Active penicillins Active 1nausea vomiting Immunizations Given and Recorded Vaccine Date Status Refusal Reason SARS-CoV-2(COVID-19)mRNA-LNP vac([id number]) 04/17/23 Recorded influenza virus vaccine, inactivated 12/27/22 [...] virus vaccine, inactivated 6 01/24/12 Gi shakira [id number] 12y+ bivalent booster vax 03/02/22 Recorded SARS-CoV-2 [...] acel(Tdap) 12 09/29/07 Given 1Result Comment: [facility] [id number] 2Location History: pharmacy 3Location History: [facility] 4Admin Note: high dose done at [facility] 5Admin Note: immun records 6Admin Note: immun records 7Result Comment: [facility] 8Admin Note: immun records 9Admin Note: immun records 10Admin Note: immun records 11Admin Note: immun records 12Admin Note: immun records Medications Aspirin Low Dose 81 mg oral delayed release tablet 1 tablet, By Mouth, Daily, # 90 tablet, 1 Refills, Maintenance, 04/26/23 6:56:00 EST, [facility] STORE 01158, 156.5, cm, 02/18/23 10:06:00 EDT, Height, 77, kg, 02/04/23 0:27:00 EDT, Dry Weight Start Date: 04/26/23 Status: Ordered baclofen 10 mg oral tablet 1, tablet, By Mouth, Daily at bedtime, # 90 tablet, Refills 1, Tot. Refills 1, Maintenance, 02/18/23 10:44:00 EDT, Route to Pharmacy Electronically, [facility]/pharmacy #1972, 156.5, cm, 02/18/23 10:06:00 EDT, [...] 3 Refills, Maintenance, 10/16/22 17:51:00 EDT, Tablet, [facility]/pharmacy #1972, 1 tablet By Mouth 2 [...] Refills, Maintenance, 01/04/23 7:17:00 EDT, [facility], 158, cm, 10/10/22 9:38:00 EDT, Height, 80.8, kg, 10/04/22 20:27:00 EDT,Dry Weight Start Date: 01/04/23 Status: Ordered meloxicam 15 mg oral tablet 1 tablet = 15 mg, By Mouth, Daily, # 30 tablet, 0 Refills, Maintenance, 02/06/23 15:50:00 EDT, Tablet, [facility]/pharmacy #1972, Partial fill upon patient request [...] Care Team Personnel Name: Angie Pope Position: [facility] Onco RN Member Role: Primary Care Nurse Name: Julissa Patel RN Position: [facility] RN Member Role: Primary Care Nurse Name: Olga Brooke RN Position: [facility] RN Member Role: Primary Care Nurse Name: Annette Castillo NP Position: [facility] PCO Associate Professional Member Role: PCP Address: Address: [address] [place] [address]- Name: Grady Ortiz Position: [facility] Outreach Member Role: Lifetime Consulting Physician Address: Address: [address] [place] [address]- Care Team Related Persons Name: KELLEE BARRAGAN Name: ANUEL PARKER Address: [address] [place] [address] Name: ANUEL GU Address: [address] [place] [address] Name: KELLEE PEÑA Address: [address] [place] [address]
--- OUTSIDE RECORDS SUMMARY | 2024-02-06 12:45 | XMS_ITS | Continuity of Care Document ---
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 Round Cutter Operator Name Role Phone Annette Castillo NP Primary Care Physician [place] [facility] Date(s): 07/06/21 - 08/05/21 [facility] [address] [place] [address]- [place] Allergies, Adverse Reactions, Alerts Substance Reaction [...] [facility] 4Admin Note: high dose done at [facility] 5Admin Note: immun records 6Admin Note: immun records 7Admin Note: immun records 8Admin Note: immun records 9Admin Note: immun records 10Admin Note: immun records 11Admin Note: immun records Medications Aspirin Low Dose 81 mg oral delayed release tablet 1 tablet, By Mouth, Daily, # 30 tablet, 2 Refills, [facility] STORE 15909, 157.5, cm, 03/13/21 9:05:00 EST, Height, 76.3, kg, 03/12/20 13:32:00 EST, Dry Weight Start Date: 06/26/21 Status: Ordered baclofen 10 mg oral tablet 1, tablet, By Mouth, Daily at bedtime, # 30 tablet, Refills 2, Route to Pharmacy Electronically, [facility], 157.4, cm, 06/29/21 7:08:00 EST, Height, 77.6, kg, 06/29/21 7:08:00 EST, Dry Weight Start Date: 07/26/21 Status: Ordered calcium (as carbonate)-vitamin D 500 mg-400 intl units oral tablet 1 tablet, By Mouth, 2 times a day, # 180 tablet, 3 Refills, Maintenance, 11/09/20 8:38:00 EDT, Tablet, [facility][id number], 1 tablet By Mouth 2 times a [...] # 30 tablet, 5 Refills, [facility], 157.5, cm, 03/13/21 9:05:00 EST, Height, 76.3, kg, 03/12/20 13:32:00 EST, Dry Weight Start Date: 05/25/21 Status: Ordered Multivitamin With Minerals By Mouth, 0 Refills, Maintenance Start Date: 04/02/11 Status: Ordered pramipexole 1 mg oral tablet 1.5 tablet, By Mouth, 3 times a day, # 135 tablet, 5 Refills, [facility], 157.5, cm, 11/09/20 8:24:00 EDT, Height, 76.3, [...] 5, Route to Pharmacy Electronically, [facility], 157.4, cm, 06/29/21 7:08:00 EST, Height, 77.6, [...]
--- OUTSIDE RECORDS SUMMARY | 2024-02-06 12:45 | XMS_ITS | Continuity of Care Document ---
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 [id number] 2Location History: pharmacy 3Location History: [facility] 4Admin Note: high dose done at [facility] 5Admin Note: immun records 6Admin Note: immun records 7Result Comment: [facility] 8Admin Note: immun records 9Admin [...] 10/16/22 13:33:00 EDT, Route to Pharmacy Electronically, [facility]/pharmacy #1972, 158, cm, 10/10/22 [...] 8:23:00 EST, 05/04/22 8:23:00 EST, [id number], LABS NEEDED FOR FURTHER REFILLS, 157.4, cm, [...] EDT, Route to Pharmacy Electronically, [id number], 157.4, cm, 02/05/22 10:42:00 EDT, Height, 77.6, [...] Care Team Personnel Name: Angie Pope Position: [facility] Onco RN Member Role: Primary Care Nurse Name: Julissa Patel RN Position: [facility] RN Member Role: Primary Care Nurse Name: Boubacar Dumont RN Position: [facility] RN Member Role: Primary Care Nurse Name: Annette Castillo NP Position: [facility] PCO Associate Professional Member Role: PCP Address: Address: [address] [place] [address]- Name: Grady Ortiz Position: [facility] Outreach Member Role: Lifetime Consulting Physician Address: Address: [address] [place] [address], [address] [address] Care Team Related Persons Name: ANUEL PARKER Address: [address] [place] [address] Name: ANUEL GU Address: [place] [address] [place] [address] Name: KELLEE PEÑA Address: home [address] [place], [place] [id number]
--- OUTSIDE RECORDS SUMMARY | 2024-02-06 12:45 | XMS_ITS | Continuity of Care Document ---
Author Organization [facility] Adult Address [address] [place] [address]- Care Team Providers Care Chief Construction Inspector Name Role Phone Annette Castillo NP Primary Care Physician [facility]20 - 06/04/20 [facility] Adult [address] [place] [address]- Allergies, Adverse Reactions, Alerts Substance Reaction Severity [...] tablet, 3 Refills, Maintenance, 04/08/20 8:32:00 EST, [facility], 164, cm, 03/17/20 16:43:00 EST, Height, 76.3, kg, 03/12/20 13:32:00 EST, Dry Weight Start Date: 04/08/20 Status: Ordered baclofen 10 mg oral tablet 10 mg, 1, tablet, By Mouth, Daily at bedtime, TAKE 1 TABLET BY MOUTH EVERYDAY AT BEDTIME, # 90 tablet, Refills 0, Tot. Refills 0, Maintenance, 05/24/20 9:11:00 EST, Route to Pharmacy Electronically, [facility] #[id number], Partial fill upon patient req... Start Date: 05/24/20 Status: Ordered calcium (as carbonate)-vitamin D 500 mg-400 intl units oral tablet 1 tablet, By Mouth, 2 times a day, # 180 tablet, 1 Refills, Maintenance, 05/05/20 16:26:00 EST, Tablet, [facility] #[id number], 1 tablet By Mouth 2 times a day, 164, cm, 03/17/20 16:43:00 EST, Height,76.3, kg, 03/12/20 13:32:00 EST, Dry Weight Start Date: 05/05/20 Status: Ordered CeleBREX 200 mg oral capsule 1 capsule = 200 mg, By Mouth, 2 times a day, Until mail order is delivered, # 28 capsule, 0 Refills, Maintenance, 10/19/19 12:34:00 EDT, Capsule, [facility]/pharmacy #[id number], 158, cm, 09/30/19 10:10:00 [...] Refills, Maintenance, 11/12/19 16:33:00 EDT, Capsule, [facility]/pharmacy #0993, 158, cm, 11/12/19 15:02:00 [...] 180 tablet, 0 Refills, 05/30/20 11:17:00 EST, [facility]/pharmacy #[id number], 164, cm, 03/17/20 16:43:00 EST, Height, 76.3, kg, 03/12/20 13:32:00... Start Date: 05/30/20 Status: Ordered levothyroxine 0.088 mg oral tablet 1 tablet = 88 mcg, By Mouth, Daily, # 90 tablet, 1 Refills, Soft Stop, 03/07/20 15:20:00 EST, [facility] #[id number], 157.48, cm, 02/04/20 11:41:00 EDT, Height, 77.2, kg, 05/20/19 20:41:00 EST, Dry Weight Start Date: 03/07/20 Stop Date: 09/03/20 Status: Ordered Mirapex 1 mg oral tablet 1.5 tablet = 1.5 mg, By Mouth, 3 times a day, # 135 tablet, 4 Refills, Maintenance, 12/24/19 9:28:00 EDT, [facility] #[id number], 158, cm, 11/12/19 15:02:00 EDT, Height, 77.2, kg, 05/20/19 20:41:00 EST, Dry Weight Start Date: 12/24/19 Stop Date: 05/22/20 Status: Ordered MoviPrep oral powder for reconstitution 240 mL, By Mouth, Every 15 minutes, Dose #1 evening before colonoscopy and dose #2 is 6 hours before colonoscopy, # 1 each, 0 Refills, Acute 06/30/20 7:15:00 EST, 06/29/20 17:00:00 EST, REC Powder, [facility]/pharmacy #[id number], test date 06/30/20. please fill ASA... [...] 02/23/20 8:48:00 EDT, Route to Pharmacy Electronically, [facility] #[id number], 157.48, cm, 02/04/20 11:41:00 EDT, Height, 77.2, kg, 05/20/19 20:41:00 EST... Start Date: 02/23/20 Status: Ordered Zofran 4 mg oral tablet 1 tablet = 4 mg, By Mouth, Every 8 hours, PRN Nausea & Vomiting, # 10 tablet, 0 Refills, Maintenance, 03/13/20 9:49:00 EST, Tablet, [facility], Partial fill [...]
--- OUTSIDE RECORDS SUMMARY | 2024-02-06 12:45 | XMS_ITS | Continuity of Care Document ---
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 Role Phone Annette Castillo NP Primary Care Physician [phone] [facility]): 04/02/23 - 05/02/23 [facility] Adult [address] [place] [address]- Allergies, Adverse Reactions, Alerts Substance Reaction Severity Status morphine 1 Persistent Moderate Active penicillins Active 1nausea vomiting Immunizations Given and Recorded Vaccine Date Status Refusal Reason SARS-CoV-2(COVID-19)mRNA-LNP vac([id number]) 04/17/23 Recorded influenza virus vaccine, inactivated 12/27/22 [...] virus vaccine, inactivated 6 01/24/12 Gi shakira [id number] 12y+ bivalent booster vax 03/02/22 Recorded SARS-CoV-2 [...] acel(Tdap) 12 09/29/07 Given 1Result Comment: [facility] [id number] 2Location History: pharmacy 3Location History: [facility] 4Admin Note: high dose done at [facility] 5Admin Note: immun records 6Admin Note: immun records 7Result Comment: [facility] 8Admin Note: immun records 9Admin Note: immun records 10Admin Note: immun records 11Admin Note: immun records 12Admin Note: immun records Medications Aspirin Low Dose 81 mg oral delayed release tablet 1 tablet, By Mouth, Daily, # 90 tablet, 1 Refills, Maintenance, 04/26/23 6:56:00 EST, [facility], 156.5, cm, 02/18/23 10:06:00 EDT, Height, 77, kg, 02/04/23 0:27:00 EDT, Dry Weight Start Date: 04/26/23 Status: Ordered baclofen 10 mg oral tablet 1, tablet, By Mouth, Daily at bedtime, # 90 tablet, Refills 1, Tot. Refills 1, Maintenance, 02/18/23 10:44:00 EDT, Route to Pharmacy Electronically, [facility]/pharmacy #1972, 156.5, cm, 02/18/23 10:06:00 EDT, [...] 3 Refills, Maintenance, 10/16/22 17:51:00 EDT, Tablet, [facility]/pharmacy #1972, 1 tablet By Mouth 2 [...] Refills, Maintenance, 01/04/23 7:17:00 EDT, [facility], 158, cm, 10/10/22 9:38:00 EDT, Height, 80.8, kg, 10/04/22 20:27:00 EDT,Dry Weight Start Date: 01/04/23 Status: Ordered meloxicam 15 mg oral tablet 1 tablet = 15 mg, By Mouth, Daily, # 30 tablet, 0 Refills, Maintenance, 02/06/23 15:50:00 EDT, Tablet, [facility]/pharmacy #1972, Partial fill upon patient request [...] Personnel Name: Angie Pope Position: [facility] Onco RN Member Role: Primary Care Nurse Name: Julissa Patel RN Position: [facility] RN Member Role: Primary Care Nurse Name: Olga Brooke RN Position: [facility] RN Member Role: Primary Care Nurse Name: Annette Castillo NP Position: [facility] PCO Associate Professional Member Role: PCP Address: Address: [address] [place] [address]- Name: Grady Ortiz Position: [facility] Outreach Member Role: Lifetime Consulting Physician Address: Address: [address] [place] [address]- Care Team Related Persons Name: KELLEE BARRAGAN Name: ANUEL PARKER Address: [place] [address] [place] [address] Name: ANUEL GU Address: [address] [place] [address] Name: KELLEE PEÑA Address: home [address] [place] [address]
--- OUTSIDE RECORDS SUMMARY | 2024-02-06 12:45 | XMS_ITS | Continuity of Care Document ---
Author Organization [facility] Adult Address [address] [place] [address]- Care Team Providers Care Microbial Specialist Name Role Phone Annette Castillo NP Primary Care Physician [facility] 11/09/20 - 12/09/20 [facility] Adult [address] [place] [address]- Allergies, Adverse Reactions, Alerts Substance Reaction Severity [...] [facility] 4Admin Note: high dose done at [facility] 5Admin Note: immun records 6Admin Note: immun records 7Admin Note: immun records 8Admin Note: immun records 9Admin Note: immun records 10Admin Note: immun records 11Admin Note: immun records Medications aspirin 81 mg oral delayed release tablet = 81 mg, By Mouth, Daily, # 30 tablet, 3 Refills, Maintenance, 11/07/20 15:07:00 EDT, [id number], 157, cm, 09/07/20 14:26:00 EDT, Height, 76.3, kg, 03/12/20 13:32:00 EST, Dry Weight Start Date: 11/07/20 Status: Ordered baclofen 10 mg oral tablet 10 mg, 1, tablet, By Mouth, Daily at bedtime, TAKE 1 TABLET BY MOUTH EVERYDAY AT BEDTIME, # 90 tablet, Refills 0, Tot. Refills 0, Maintenance, 11/09/20 8:38:00 EDT, Route to Pharmacy Electronically, [id number], Partial fill upon patient req... Start Date: 11/09/20 Stop Date: 02/07/21 Status: Ordered calcium (as carbonate)-vitamin D 500 mg-400 intl units oral tablet 1 tablet, By Mouth, 2 times a day, # 180 tablet, 3 Refills, Maintenance, 11/09/20 8:38:00 EDT, Tablet, [facility][id number], 1 tablet By Mouth 2 times a [...] 30 sprays, 0 Refills, Acute, [facility], 30, SPRAY 2 SPRAYS INTO BOTH NOSTRILS 2 TIMES A DAY FOR 30 DAYS, 157.5, cm, 11/09/20 8:24:00 EDT, Height, 76.3, kg, 03/12/20... Start Date: 12/02/20 Status: Ordered levothyroxine 0.088 mg oral tablet 1 tablet, By Mouth, Daily, # 30 tablet, 5 Refills, Maintenance, 12/01/20 11:20:00 EDT, [facility], 157.5, cm, 11/09/20 8:24:00 EDT, Height, 76.3, kg, 03/12/20 13:32:00 EST, Dry Weight Start Date: 12/01/20 Status: Ordered Mirapex 1 mg oral tablet 1.5 tablet = 1.5 mg, By Mouth, 3 times a day, # 135 tablet, 5 Refills, Maintenance, 09/09/20 8:27:00 EDT, [id number], 157, cm, 09/07/20 14:26:00 EDT, Height, 76.3, [...] EDT, Route to Pharmacy Electronically, [facility] #[id number], 157, cm, 06/30/20 10:07:00 EST, Height, 76.3, kg, 03/12/20 13:32:00 EST, Dry We... Start Date: 08/05/20 Status: Ordered Zofran 4 mg oral tablet 1 tablet = 4 mg, By Mouth, Every 8 hours, PRN Nausea & Vomiting, # 10 tablet, 0 Refills, Maintenance, 03/13/20 9:49:00 EST, Tablet, [facility], Partial fill upon patient request, [...]
--- OUTSIDE RECORDS SUMMARY | 2024-02-06 12:45 | XMS_ITS | Continuity of Care Document ---
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 Role Phone Annette Castillo NP Primary Care Physician [phone] [facility]): 06/14/22 - 07/14/22 [facility] Adult [address] [place] [address]- Allergies, Adverse Reactions, Alerts Substance Reaction Severity [...] 12 09/29/07 Given 1Result Comment: [facility] [id number] 2Location History: pharmacy 3Location History: [facility] 4Admin Note: high dose done at [facility] [...] tablet, 2 Refills, Maintenance, 06/26/22 8:57:00 EST, [facility], 157.4, cm, 02/05/22 10:42:00 EDT, Height, 77.6, kg, 06/29/21 7:08:00 EST, Dry Weight Start Date: 06/26/22 Status: Ordered baclofen 10 mg oral tablet 1, tablet, By Mouth, Daily at bedtime, # 30 tablet, Refills 2, Maintenance, 04/27/22 7:15:00 EST, Route to Pharmacy Electronically, [facility], 157.4, cm, 02/05/22 10:42:00 EDT, Height, 77.6, kg, 06/29/21 7:08:00 EST, Dry Weight Start Date: 04/27/22 Status: Ordered calcium (as carbonate)-vitamin D 500 mg-400 intl units oral tablet 1 tablet, By Mouth, 2 times a day, # 180 tablet, 3 Refills, Maintenance, 11/09/20 8:38:00 EDT, Tablet, [facility] #[id number], 1 tablet By Mouth 2 times a [...] 8:23:00 EST, 05/04/22 8:23:00 EST, [id number], LABS NEEDED FOR FURTHER REFILLS, 157.4, cm, [...] Refills, Maintenance, 02/26/22 15:10:00 EDT, [facility], 157.4, cm, 02/05/22 10:42:00 EDT, Height, 77.6, [...] 05/27/22 14:05:00 EST, Route to Pharmacy Electronically, [facility] 67[facility], 157.4, cm, 02/05/22 10:42:00 EDT, Height, 77.6, [...] Associate Professional Member Role: PCP Address: Address: [address] [place] [address]- Name: Grady Ortiz Position: [facility] Outreach Member Role: Lifetime Consulting Physician Address: Address: [address] [place] [address], [address] [address]- Care Team Related Persons Name: ANUEL PARKER Address: home [address] [place] [address] Name: KELLEE PEÑA Address: home [address] [place] [address]
--- OUTSIDE RECORDS SUMMARY | 2024-02-06 12:45 | XMS_ITS | Continuity of Care Document ---
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 4Admin Note: high dose done at [facility] 5Admin Note: immun records 6Admin Note: immun records 7Admin Note: immun records 8Admin Note: immun records 9Admin Note: immun records 10Admin Note: immun records 11Admin Note: immun records Medications Aspirin Low Dose 81 mg oral delayed release tablet 1 tablet, By Mouth, Daily, # 30 tablet, 2 Refills, Maintenance, 09/26/21 10:21:00 EDT, [facility] #[id number], 157.4, cm, 08/10/21 9:43:00 EDT, Height, 77.6, kg, 06/29/21 7:08:00 EST, Dry Weight Start Date: 09/26/21 Status: Ordered baclofen 10 mg oral tablet 1, tablet, By Mouth, Daily at bedtime, # 30 tablet, Refills 2, Route to Pharmacy Electronically, [facility] 02882, 157.4, cm, 06/29/21 7:08:00 EST, Height, 77.6, kg, 06/29/21 7:08:00 EST, Dry Weight Start Date: 07/26/21 Status: Ordered calcium (as carbonate)-vitamin D 500 mg-400 intl units oral tablet 1 tablet, By Mouth, 2 times a day, # 180 tablet, 3 Refills, Maintenance, 11/09/20 8:38:00 EDT, Tablet, [facility] #[id number], 1 tablet By Mouth 2 times a [...] Status: Ordered gabapentin 600 mg oral tablet 1 tablet = 600 mg, By Mouth, 2 times a day, TAKE 1 TABLET BY MOUTH IN THE MORNING AND TAKE 1 TABLETAT BEDTIME, # 60 tablet, 2 Refills, Maintenance, 09/19/21 9:07:00 EDT, [facility], 157.4, cm, 08/10/21 9:43:00 EDT, Height, 77.6, kg, 06/29/21... Start Date: 09/19/21 Stop Date: 12/18/21 Status: Ordered levothyroxine 0.088 mg oral tablet 1 tablet, By Mouth, Daily, # 30 tablet, 5 Refills, [facility], 157.5, cm, 03/13/21 9:05:00 EST, Height, 76.3, [...] # 135 tablet, 5 Refills, [facility], 157.4, cm, 08/10/21 9:43:00 EDT, Height, 77.6, [...] tablet, Refills 5, Route to Pharmacy Electronically, [facility], 157.4, cm, 06/29/21 7:08:00 EST, Height, 77.6, [...]
--- OUTSIDE RECORDS SUMMARY | 2024-02-06 12:45 | XMS_ITS | Continuity of Care Document ---
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 Name Role Phone Annette Castillo NP Primary Care Physician [phone] [facility]s): 09/27/20 - 10/27/20 [facility] Adult [address] [place] [address]- Allergies, Adverse Reactions, Alerts Substance Reaction Severity [...] Refills, Maintenance, 04/08/20 8:32:00 EST, [facility], 164, cm, 03/17/20 16:43:00 EST, Height, 76.3, kg, 03/12/20 13:32:00 EST, Dry Weight Start Date: 04/08/20 Status: Ordered baclofen 10 mg oral tablet 10 mg, 1, tablet, By Mouth, Daily at bedtime, TAKE 1 TABLET BY MOUTH EVERYDAY AT BEDTIME, # 90 tablet, Refills 0, Tot. Refills 0, Maintenance, 08/05/20 12:52:00 EDT, Route to Pharmacy Electronically,[facility] #[id number], Partial fill upon patient re... Start Date: 08/05/20 Status: Ordered calcium (as carbonate)-vitamin D 500 mg-400 intl units oral tablet 1 tablet, By Mouth, 2 times a day, # 180 tablet, 1 Refills, Maintenance, 05/05/20 16:26:00 EST, Tablet, [facility] #[id number], 1 tablet By Mouth 2 times a day, 164, cm, 03/17/20 16:43:00 EST, Height,76.3, kg, 03/12/20 13:32:00 EST, Dry Weight Start Date: 05/05/20 Status: Ordered CeleBREX 200 mg oral capsule 1 capsule = 200 mg, By Mouth, 2 times a day, Until mail order is delivered, # 28 capsule, 0 Refills, Maintenance, 10/19/19 12:34:00 EDT, Capsule, [facility]/pharmacy #[id number], 158, cm, 09/30/19 [...] 0 Refills, Maintenance, 11/12/19 16:33:00 EDT, Capsule, [facility]/pharmacy #0993, 158, cm, 11/12/19 [...] tablet, 0 Refills, Maintenance, 09/27/20 14:38:00 EDT, [facility]/pharmacy #[id number], 157, cm, 09/07/20 14:26:00 EDT, Height, 76.3, kg, 03/12... Start Date: 09/27/20 Status: Ordered levothyroxine 0.088 mg oral tablet 1 tablet, By Mouth, Daily, # 30 tablet, 2 Refills, Maintenance, 09/09/20 8:28:00 EDT, [facility] #[id number], Rx resent from 09/05, 157, cm, 09/07/20 14:26:00 EDT, Height, 76.3, kg, 03/12/20 13:32:00 EST, Dry Weight Start Date: 09/09/20 Status: Ordered Mirapex 1 mg oral tablet 1.5 tablet = 1.5 mg, By Mouth, 3 times a day, # 135 tablet, 5 Refills, Maintenance, 09/09/20 8:27:00 EDT, [facility][id number], 157, cm, 09/07/20 14:26:00 EDT, Height, 76.3, [...] EDT, Route to Pharmacy Electronically, [facility] #[id number], 157, cm, 06/30/20 10:07:00 EST, Height, 76.3, kg, 03/12/20 13:32:00 EST, Dry We... Start Date: 08/05/20 Status: Ordered Zofran 4 mg oral tablet 1 tablet = 4 mg, By Mouth, Every 8 hours, PRN Nausea & Vomiting, # 10 tablet, 0 Refills, Maintenance, 03/13/20 9:49:00 EST, Tablet, [facility], Partial fill upon patient request, [...]
--- OUTSIDE RECORDS SUMMARY | 2024-02-06 12:45 | XMS_ITS | Continuity of Care Document ---
Author Organization [facility] Adult Address [address] [place] [address]- Care Team Providers Care Early Childhood Associate Name Role Phone Annette Castillo NP Primary Care Physician Encounter [facility] [place] 02/05/22 - 02/12/22 [facility] Adult [address] [place] [address]- Encounter Diagnosis Adult general medical exam(Discharge Diagnosis) - 02/05/22 Medicare annual wellness visit, subsequent(Discharge Diagnosis) - 02/05/22 Central sleep apnea(Discharge Diagnosis) - 02/05/22 Constipation(Discharge Diagnosis) - 02/05/22 Hypothyroidism(Discharge Diagnosis) - 02/05/22 Lumbar spondylosis(Discharge Diagnosis) - 02/05/22 Osteopenia(Discharge Diagnosis) - 02/05/22 Attending Physician: Annette Castillo NP Allergies, Adverse [...] tetanus/diphtheria/pertussis, acel(Tdap) 12 09/29/07 Given 1Result Comment: [facility] [phone] 2Location History: pharmacy 3Location History: [facility] 4Admin Note: high dose done at [facility] 5Admin Note: immun records 6Admin Note: immun records 7Result Comment: [facility] 8Admin Note: immun records 9Admin Note: immun records 10Admin Note: immun records 11Admin Note: immun records 12Admin Note: immun records Medications Aspirin Low Dose 81 mg oral delayed release tablet 1 tablet, By Mouth, Daily, # 30 tablet, 2 Refills, Maintenance, 12/27/21 14:13:00 EDT, [facility] STORE 20260, 157.4, cm, 08/10/21 9:43:00 EDT, Height, 77.6, kg, 06/29/21 7:08:00 EST, Dry Weight Start Date: 12/27/21 Status: Ordered baclofen 10 mg oral tablet 1, tablet, By Mouth, Daily at bedtime, # 30 tablet, Refills 2, Tot. Refills 2, Maintenance, 02/05/22 11:24:00 EDT, Route to Pharmacy Electronically, [facility] #[id number], 157.4, cm, 02/05/22 10:42:00 EDT, Height, 77.6, kg, 06/29/21 7:08:00 EST, Dry W... Start Date: 02/05/22 Status: Ordered calcium (as carbonate)-vitamin D 500 mg-400 intl units oral tablet 1 tablet, By Mouth, 2 times a day, # 180 tablet, 3 Refills, Maintenance, 11/09/20 8:38:00 EDT, Tablet, [facility] #[id number], 1 tablet By Mouth 2 times a day,x90 days, 157.5, cm, 11/09/20 8:24:00 EDT, Height, 76.3, kg, 03/12/20 13:32:00 EST, Dry Weight Start Date: 11/09/20 Stop Date: 11/04/21 Status: Ordered CeleBREX 200 mg oral capsule 1 capsule = 200 mg, By Mouth, 2 times a day, Until mail order is delivered, # 28 capsule, 0 Refills, Maintenance, 10/19/19 12:34:00 EDT, Capsule, [facility]/pharmacy #0993, 158, cm, 09/30/19 10:10:00 EDT, [...] Refills, Maintenance, 11/12/19 16:33:00 EDT, Capsule, [facility]/pharmacy #0993, 158, cm, 11/12/19 15:02:00 EDT, [...] AT BEDTIME, # 60 tablet, 2 Refills, 02/05/22 11:24:00 EDT, [id number], 157.4, cm, 02/05/22 10:42:00 EDT, Height, 77.6, kg, 06/29/21 7:08:00 EST, Dry Weight Start Date: 02/05/22 Status: Ordered levothyroxine 0.088 mg oral tablet 1 tablet, By Mouth, Daily, # 30 tablet, 2 Refills, 02/05/22 11:24:00 EDT, [facility], LABS NEEDED FOR FURTHER REFILLS, 157.4, cm, [...] # 135 tablet, 5 Refills, [facility], 157.4, cm, 08/10/21 9:43:00 EDT, Height, 77.6, [...] 02/05/22 11:25:00 EDT, Route to Pharmacy Electronically, [id number], 157.4, cm, 02/05/22 10:42:00 EDT, Height, 77.6, [...] Effective Dates Health Status Clinical Service Informant Adult general medical exam Discharge Diagnosis 02/05/22 Medicare annual wellness visit, subsequent Discharge Diagnosis 02/05/22 Central sleep apnea Discharge Diagnosis 02/05/22 Constipation Discharge Diagnosis 02/05/22 Hypothyroidism Discharge Diagnosis 02/05/22 Lumbar spondylosis Discharge Diagnosis 02/05/22 Osteopenia Discharge Diagnosis 02/05/22 Vital Signs Most recent to oldest [Reference Range]: 1 Height 157.4 cm (02/05/22 10:42 AM) Weight 78.8 kg (02/05/22 10:42 AM) Oxygen Saturation [94-100 %] 96 % (02/05/22 10:42 AM) Pulse Rate [55-90 bpm] 72 bpm (02/05/22 10:42 AM) Body Mass Index [18.5-24.99 kg/m2] 31.81 kg/m2 *>HHI* (02/05/22 10:42 AM) Blood Pressure [90-138/55-84 mm Hg] 112/ 66mm Hg (02/05/22 10:42 AM) Temperature [96.8-100.4 DegF] 97.7 DegF (02/05/22 10:42 AM) Mode of Delivery (Oxygen) Room air (02/05/22 10:42 AM) Blood pressure sites Arm, left (02/05/22 10:42 AM) Temperature Route Oral (02/05/22 10:42 AM) Weight Obtained Via Standing scale (02/05/22 10:42 AM) Social History Social History Type Response Smoking Status Never (less than 100 in lifetime) entered on: 11/09/20 Sex Patient Care team information Personnel Name: Annette Castillo NP Address: Address: [address] [place] [address]
--- OUTSIDE RECORDS SUMMARY | 2024-02-06 12:45 | XMS_ITS | Continuity of Care Document ---
Author Organization [facility] Adult Address [address] [place] [address]- Care Team Providers Care Lighting Technician Name Role Phone Annette Castillo NP Primary Care Physician [facility]22 - 08/15/22 [facility] [address] [place] [address]- Allergies, Adverse Reactions, Alerts Substance Reaction Severity [...] Given 1Result Comment: [facility] [id number] 2Location History: pharmacy 3Location History: [facility] 4Admin Note: high dose done at select [...] tablet, 2 Refills, Maintenance, 06/26/22 8:57:00 EST, [facility] STORE 43879, 157.4, cm, 02/05/22 10:42:00 EDT, Height, 77.6, kg, 06/29/21 7:08:00 EST, Dry Weight Start Date: 06/26/22 Status: Ordered baclofen 10 mg oral tablet 1, tablet, By Mouth, Daily at bedtime, # 30 tablet, Refills 2, Maintenance, 07/26/22 7:37:00 EDT, Route to Pharmacy Electronically, [facility] STORE 07939, 157.4, cm, 02/05/22 10:42:00 EDT, Height, 77.6, kg, 06/29/21 7:08:00 EST, Dry Weight Start Date: 07/26/22 Status: Ordered calcium (as carbonate)-vitamin D 500 mg-400 intl units oral tablet 1 tablet, By Mouth, 2 times a day, # 180 tablet, 3 Refills, Maintenance, 11/09/20 8:38:00 EDT, Tablet, [facility] #[id number], 1 tablet By Mouth 2 times a [...] Refills, Maintenance, 08/15/22 9:41:00 EDT, [facility], 157.4, cm, 02/05/22 10:42:00 EDT, Height, 77.6, kg, 06/29/21 7:08:00 EST, Dry Weight Start Date: 08/15/22 Status: Ordered levothyroxine 0.088 mg oral tablet 1 tablet, By Mouth, Daily, for 90 days, # 90 tablet, 3 Refills, Physician Stop 04/29/23 8:23:00 EST, 05/04/22 8:23:00 EST, [id number], LABS NEEDED FOR FURTHER REFILLS, 157.4, cm, [...] Refills, Maintenance, 02/26/22 15:10:00 EDT, [facility], 157.4, cm, 02/05/22 10:42:00 EDT, Height, 77.6, [...] EDT, Route to Pharmacy Electronically, [id number], 157.4, cm, 02/05/22 10:42:00 EDT, Height, 77.6, [...] Care Team Personnel Name: Angie Pope Position: [facility] Onco RN Member Role: Primary Care Nurse Name: Olga Brooke RN Position: [facility] RN Member Role: Primary Care Nurse Name: Annette Castillo NP Position: [facility] PCO Associate Professional Member Role: PCP Address: Address: [address] [place] [address] Name: Grady Ortiz Position: [facility] Outreach Member Role: Lifetime Consulting Physician Address: Address: [address] [place] [address] [address] [place] [address]- Care Team Related Persons Name: ANUEL PARKER Address: home [address] [place] [address] Name: KELLEE PEÑA Address: home [address] [place] [address]
--- OUTSIDE RECORDS SUMMARY | 2024-02-06 12:45 | XMS_ITS | Continuity of Care Document ---
Author Organization [facility] Adult Address [address] [place] [address]- Care Team Providers Care Metallurgical Tester Name Role Phone Annette Castillo NP Primary Care Physician [phone] [facility] 09[facility]12/20 - 10/12/20 [facility] Adult [address] [place] [address]- Allergies, Adverse Reactions, Alerts Substance Reaction Severity [...] Refills, Maintenance, 04/08/20 8:32:00 EST, [facility], 164, cm, 03/17/20 16:43:00 EST, Height, 76.3, kg, 03/12/20 13:32:00 EST, Dry Weight Start Date: 04/08/20 Status: Ordered baclofen 10 mg oral tablet 10 mg, 1, tablet, By Mouth, Daily at bedtime, TAKE 1 TABLET BY MOUTH EVERYDAY AT BEDTIME, # 90 tablet, Refills 0, Tot. Refills 0, Maintenance, 08/05/20 12:52:00 EDT, Route to Pharmacy Electronically,[facility] #[id number], Partial fill upon patient re... Start Date: 08/05/20 Status: Ordered calcium (as carbonate)-vitamin D 500 mg-400 intl units oral tablet 1 tablet, By Mouth, 2 times a day, # 180 tablet, 1 Refills, Maintenance, 05/05/20 16:26:00 EST, Tablet, [facility] #[id number], 1 tablet By Mouth 2 times a day, 164, cm, 03/17/20 16:43:00 EST, Height,76.3, kg, 03/12/20 13:32:00 EST, Dry Weight Start Date: 05/05/20 Status: Ordered CeleBREX 200 mg oral capsule 1 capsule = 200 mg, By Mouth, 2 times a day, Until mail order is delivered, # 28 capsule, 0 Refills, Maintenance, 10/19/19 12:34:00 EDT, Capsule, [facility]/pharmacy #0993, 158, cm, 09/30/19 10:10:00 [...] Refills, Maintenance, 11/12/19 16:33:00 EDT, Capsule, [facility]/pharmacy #0993, 158, cm, 11/12/19 15:02:00 [...] tablet, 0 Refills, Maintenance, 09/27/20 14:38:00 EDT, [facility]/pharmacy #0993, 157, cm, 09/07/20 14:26:00 EDT, Height, 76.3, kg, 03/12... Start Date: 09/27/20 Status: Ordered levothyroxine 0.088 mg oral tablet 1 tablet, By Mouth, Daily, # 30 tablet, 2 Refills, Maintenance, 09/09/20 8:28:00 EDT, [facility] #[id number], Rx resent from 09/05, 157, cm, 09/07/20 14:26:00 EDT, Height, 76.3, kg, 03/12/20 13:32:00 EST, Dry Weight Start Date: 09/09/20 Status: Ordered Mirapex 1 mg oral tablet 1.5 tablet = 1.5 mg, By Mouth, 3 times a day, # 135 tablet, 5 Refills, Maintenance, 09/09/20 8:27:00 EDT, [facility] #[id number], 157, cm, 09/07/20 14:26:00 EDT, Height, 76.3, [...] EDT, Route to Pharmacy Electronically, [facility] #[id number], 157, cm, 06/30/20 10:07:00 EST, Height, 76.3, kg, 03/12/20 13:32:00 EST, Dry We... Start Date: 08/05/20 Status: Ordered Zofran 4 mg oral tablet 1 tablet = 4 mg, By Mouth, Every 8 hours, PRN Nausea & Vomiting, # 10 tablet, 0 Refills, Maintenance, 03/13/20 9:49:00 EST, Tablet, [facility], Partial fill upon [...]
--- OUTSIDE RECORDS SUMMARY | 2024-02-06 12:45 | XMS_ITS | Continuity of Care Document ---
Author Organization [facility] Adult Address [address] [place] [address]- Care Team Providers Care Embedded Engineer Name Role Phone Cecilia SANTAMARIA, Leonarda Primary Care Physician En[facility]): 07/23/19 - 07/30/19 [facility] Adult [address] [place] [address]- [facility] Encounter Diagnosis Left leg pain(Discharge Diagnosis) - 07/23/19 Attending Physician: Angelica SANTAMARIA, Jerica Horan Allergies, Adverse Reactions, Alerts Substance Reaction Severity [...] Maintenance, 03/04/19 15:42:41 EST,Route to Pharmacy Electronically, [id number], [facility]/pharmacy #[id number] Start Date: 03/04/19 Stop Date: 10/30/19 Status: Ordered baclofen 10 mg oral tablet See Instructions, TAKE 1 TABLET BY MOUTH EVERYDAY AT BEDTIME, # 90 tablet, Refills 0, Maintenance, Instructions Replace Required Details, Route to Pharmacy Electronically, [facility] STORE 04351, 157, cm, 06/23/19 9:54:00 EST, Height, 77.2, kg, 05/20/19 20:4... Start Date: 07/01/19 Status: Ordered calcium (as carbonate)-vitamin D 500 mg-400 intl units oral tablet 1 tablet, By Mouth, 2 times a day, # 60 tablet, 5 Refills, Maintenance, 05/26/19 13:08:00 EST, Tablet, [facility]/pharmacy #0993, 1 tablet By Mouth [...] 05/26/19 17:59:00 EST, Route to Pharmacy Electronically, [facility], 157, cm, 05/07/19 1... Start Date: 05/26/19 Status: Ordered lactulose 10 gm/15 ml oral syrup 15 mL = 10 Gm, By Mouth, 2 times a day, PRN as needed for constipation, # 480 mL, 1 Refills, Maintenance, 07/27/19 12:04:00 EDT, Syrup, [facility]/pharmacy #0993, 15 mL By Mouth [...] Refills, Maintenance Start Date: 04/02/11 Status: Ordered naproxen 500 mg oral tablet 1 tablet = 500 mg, By Mouth, 2 times a day, for 10 days, # 20 tablet, 0 Refills, Acute 08/02/19 9:34:00 EDT, 07/23/19 9:34:00 EDT, Tablet, [facility]/pharmacy #0993, 157, cm, 07/23/19 9:32:00 EDT, Height, 77.2, kg, 05/20/19 20:41:00 EST, Dry Weight Start Date: 07/23/19 Stop Date: 08/02/19 Status: Ordered predniSONE 20 mg oral tablet 1 tablet = 20 mg, By Mouth, Daily, for 7 days, # 7 tablet, 0 Refills, Acute 08/06/19 13:16:00 EDT, 07/30/19 13:16:00 EDT, Tablet, [facility]/pharmacy #0993, 158, cm, 07/30/19 12:49:00 EDT, Height, 77.2, kg,05/20/19 20:41:00 EST, Dry Weight Start Date: 07/30/19 Stop Date: 08/06/19 Status: Ordered traZODone 100 mg oral tablet 100 mg, 1, tablet, By Mouth, Daily at bedtime, # 30 tablet, Refills 2, Tot. Refills 2, Soft Stop, 05/12/19 13:56:00 EST, Route to Pharmacy Electronically, [facility]/pharmacy #0993, 157, cm, 05/07/19 16:41:00 [...] Health Status Cl inical Service Informant Left leg pain Discharge Diagnosis 07/23/19 Vital Signs Most recent to oldest [Reference Range]: 1 2 Height 157 cm (07/23/19 9:32 AM) 157 cm (07/23/19 9:13 AM) Weight 76.8 kg (07/23/19 9:13 AM) Oxygen Saturation [94-100 %] 98 % (07/23/19 9:13 AM) Pulse Rate [55-90 bpm] 77 bpm (07/23/19 9:13 AM) Body Mass Index [18.5-24.99] 31.16 *>HHI* (07/23/19 9:13 AM) Blood Pressure [90-138/55-84 mm Hg] 102/ 78mm Hg (07/23/19 9:32 AM) 98/72mm Hg (07/23/19 9:13 AM) Mode of Delivery (Oxygen) Room air (07/23/19 9:13 AM) Blood pressure sites Arm, left (07/23/19 9:32 AM) Arm, left (07/23/19 9:13 AM) Weight Obtained Via Standing scale (07/23/19 9:13 AM) Social History Social History Type Response Smoking Status Former smoker; Type: Cigarettes; Tobacco use times per day: quit smoking 30 yrs ago; entered on: 06/25/15 Sex
--- OUTSIDE RECORDS SUMMARY | 2024-02-06 12:45 | XMS_ITS | Continuity of Care Document ---
Author Organization [facility] Address [address] [place] [address]- Care Team Providers Care Pitch Flaker Name Role Phone Swapnil SANTAMARIA, Annette Primary Care Physician [phone] [facility] 10/28/19 - 11/27/19 [facility] [address] [place] [address]- [facility] Attending Physician: Admnewton, Miles Admitting Physician: Admtr, Ar8 Referring Physician: Admtr, [...] Replace Required Details, Route to Pharmacy Electronically, [facility] STORE 02730, 158, cm, 07/30/19 12:49:00 EDT, Height, 77.2, kg, 05/20/19 20:... Start Date: 08/19/19 Status: Ordered calcium (as carbonate)-vitamin D 500 mg-400 intl units oral tablet 1 tablet, By Mouth, 2 times a day, # 180 tablet, 1 Refills, Maintenance, 10/27/19 9:07:00 EDT, Tablet, [facility] #[id number], 1 tablet By Mouth 2 times a day, 158, cm, 09/30/19 10:10:00 EDT, Height, 77.2, kg, 05/20/19 20:41:00 EST, Dry Weight Start Date: 10/27/19 Status: Ordered CeleBREX 200 mg oral capsule 1 capsule = 200 mg, By Mouth, 2 times a day, Take with food to avoid upset stomach, # 180 capsule, 0 Refills, Maintenance, 10/19/19 12:33:00 EDT, Capsule, [facility] #[id number], 158, cm, 09/30/19 10:10:00 EDT, Height, 77.2, kg, 05/20/19 20:41:00 EST,... Start Date: 10/19/19 Stop Date: 01/17/20 Status: Ordered CeleBREX 200 mg oral capsule 1 capsule = 200 mg, By Mouth, 2 times a day, Until mail order is delivered, # 28 capsule, 0 Refills, Maintenance, 10/19/19 12:34:00 EDT, Capsule, [facility]/pharmacy #0993, 158, cm, 09/30/19 10:10:00 [...] 180 tablet, 1 Refills, Maintenance, [facility], 158, cm, 07/30/19 12:49:00 EDT, Height, 77.2, [...] 1 Refills, Soft Stop, 09/28/19 11:17:00 EDT, [facility]/pharmacy #0993, 158, cm, 09/08/19 10:27:00 [...] 08/12/19 8:23:00 EDT, Route to Pharmacy Electronically, [facility]/pharmacy #[id number], 158, cm, 07/30/19 12:49:00 [...]
--- OUTSIDE RECORDS SUMMARY | 2024-02-06 12:45 | XMS_ITS | Continuity of Care Document ---
Author Organization [facility] Adult Address [address] [place] [address]- Care Team Providers Care Amusement Centre Manager Name Role Phone Annette Castillo NP Primary Care Physician [facility]): 10/04/22 - 11/03/22 [facility] [address] [place] [address]- Allergies, Adverse Reactions, Alerts Substance Reaction Severity [...] 09/29/07 Given 1Result Comment: [facility] [id number] 2Location History: pharmacy 3Location History: [facility] 4Admin Note: high dose done at [facility] 5Admin Note: immun records 6Admin Note: immun records 7Result Comment: [facility] 8Admin Note: immun records 9Admin Note: immun records 10Admin Note: immun records 11Admin Note: immun records 12Admin Note: immun records Medications Aspirin Low Dose 81 mg oral delayed release tablet 1 tablet, By Mouth, Daily, # 30 tablet, 5 Refills, Maintenance, 10/16/22 7:11:00 EDT, [facility]/pharmacy #1972, 158, cm, 10/10/22 9:38:00 EDT, Height, 80.8, kg, 10/04/22 20:27:00 EDT, Dry Weight Start Date: 10/16/22 Status: Ordered baclofen 10 mg oral tablet 1, tablet, By Mouth, Daily at bedtime, # 30 tablet, Refills 1, Tot. Refills 1, Maintenance, 10/16/22 13:33:00 EDT, Route to Pharmacy Electronically, [facility]/pharmacy #1972, 158, cm, 10/10/22 9:38:00 [...] 04/29/23 8:23:00 EST, 05/04/22 8:23:00 EST, [facility] #[id number], LABS NEEDED FOR FURTHER REFILLS, 157.4, cm, [...] EDT, Route to Pharmacy Electronically, [facility], 157.4, cm, 02/05/22 10:42:00 EDT, Height, 77.6, [...] Personnel Name: Angie Pope Position: [facility] Onco RN Member Role: Primary Care Nurse Name: Julissa Patel RN Position: [facility] RN Member Role: Primary Care Nurse Name: Boubacar Dumont RN Position: [facility] RN Member Role: Primary Care Nurse Name: Annette Castillo NP Position: [facility] PCO Associate Professional Member Role: PCP Address: Address: [address] [place] [address]- Name: Grady Ortiz Position: [facility] Outreach Member Role: Lifetime Consulting Physician Address: Address: [address] [place] [address]- Care Team Related Persons Name: ANUEL PARKER Address: home [address] [place] [address] Name: ANUEL GU Address: [address] [place], [place] Name: KELLEE PEÑA Address: [address] [place] [address]
--- OUTSIDE RECORDS SUMMARY | 2024-02-06 12:45 | XMS_ITS | Continuity of Care Document ---
Author Organization [facility] Address [address] [place] [address]- Care Team Providers Care Leak Operator Paraffin Plant Name Role Phone Cecilia SANTAMARIA, Leonarda Primary Care Physician Encounter [facility] Date(s): 07/09/19 - 07/19/[address] [address]- [facility] Attending Physician: Miles Olea Admitting Physician: [...] Maintenance, 03/04/19 15:42:41 EST,Route to Pharmacy Electronically, [id number], [facility]/pharmacy #[id number] Start Date: 03/04/19 Stop Date: 10/30/19 Status: Ordered baclofen 10 mg oral tablet See Instructions, TAKE 1 TABLET BY MOUTH EVERYDAY AT BEDTIME, # 90 tablet, Refills 0, Maintenance, Instructions Replace Required Details, Route to Pharmacy Electronically, [facility] STORE 55675, 157, cm, 06/23/19 9:54:00 EST, Height, 77.2, kg, 05/20/19 20:4... Start Date: 07/01/19 Status: Ordered calcium (as carbonate)-vitamin D 500 mg-400 intl units oral tablet 1 tablet, By Mouth, 2 times a day, # 60 tablet, 5 Refills, Maintenance, 05/26/19 13:08:00 EST, Tablet, [facility]/pharmacy #0993, 1 tablet By Mouth [...] EST, Route to Pharmacy Electronically, [facility], 157, cm, 05/07/19 1... Start Date: 05/26/19 [...] tablet, 5 Refills, Maintenance, 05/08/19 15:54:00 EST, [facility]/pharmacy #0993, 157, cm, 05/07/19 16:41:00 [...] 05/12/19 13:56:00 EST, Route to Pharmacy Electronically, [facility]/pharmacy #0993, 157, cm, 05/07/19 16:41:00 [...] fentanyl 25 mg every 3 days. 3Dexa 2015 osteopenia 4last dexa 2013 Social History Social History Type Response Smoking Status Former smoker; Type: Cigarettes; Tobacco use times per day: quit smoking 30 yrs ago; entered on: 06/25/15 Sex
--- OUTSIDE RECORDS SUMMARY | 2024-02-06 12:45 | XMS_ITS | Continuity of Care Document ---
Author Organization [facility] Adult Address [address] [place] [address]- Care Team Providers Care Byproducts Extractor Name Role Phone Annette Castillo NP Primary Care Physician [facility] 04/01/20 - 05/01/20 [facility] [address] [place] [address]- Allergies, Adverse Reactions, Alerts Substance Reaction Severity [...] Refills, Maintenance, 04/08/20 8:32:00 EST, [facility], 164, cm, 03/17/20 16:43:00 EST, Height, 76.3, [...] 04/04/20 15:28:00 EST, Route to Pharmacy Electronically, [facility] #[id number], 164, cm, 03/17/20 16:43:00 EST, He... Start Date: 04/04/20 Stop Date: 05/04/20 Status: Ordered calcium (as carbonate)-vitamin D 500 mg-400 intl units oral tablet 1 tablet, By Mouth, 2 times a day, # 180 tablet, 1 Refills, Maintenance, 10/27/19 9:07:00 EDT, Tablet, [facility] #[id number], 1 tablet By Mouth 2 times a day, 158, cm, 09/30/19 10:10:00 EDT, Height, 77.2, kg, 05/20/19 20:41:00 EST, Dry Weight Start Date: 10/27/19 Status: Ordered CeleBREX 200 mg oral capsule 1 capsule = 200 mg, By Mouth, 2 times a day, Until mail order is delivered, # 28 capsule, 0 Refills, Maintenance, 10/19/19 12:34:00 EDT, Capsule, [facility]/pharmacy #0993, 158, cm, 09/30/19 10:10:00 EDT, [...] 0 Refills, Maintenance, 11/12/19 16:33:00 EDT, Capsule, [facility]/pharmacy #0993, 158, cm, 11/12/19 15:02:00 EDT, [...] 180 tablet, 0 Refills, 03/02/20 8:56:00 EST, [facility]/pharmacy #0993, 157.48, cm, 02/04/20 11:41:00 EDT, Height, 77.2, kg, 05/20/19 20:41:0... Start Date: 03/02/20 Status: Ordered levothyroxine 0.088 mg oral tablet 1 tablet = 88 mcg, By Mouth, Daily, # 90 tablet, 1 Refills, Soft Stop, 03/07/20 15:20:00 EST, [facility] #[id number], 157.48, cm, 02/04/20 11:41:00 EDT, Height, 77.2, kg, 05/20/19 20:41:00 EST, Dry Weight Start Date: 03/07/20 Stop Date: 09/03/20 Status: Ordered Mirapex 1 mg oral tablet 1.5 tablet = 1.5 mg, By Mouth, 3 times a day, # 135 tablet, 4 Refills, Maintenance, 12/24/19 9:28:00 EDT, [facility] #[id number], 158, cm, 11/12/19 15:02:00 EDT, Height, 77.2, [...] EDT, Route to Pharmacy Electronically, [facility] #[id number], 157.48, cm, 02/04/20 11:41:00 EDT, Height, 77.2, kg, 05/20/19 20:41:00 EST... Start Date: 02/23/20 Status: Ordered Zofran 4 mg oral tablet 1 tablet = 4 mg, By Mouth, Every 8 hours, PRN Nausea & Vomiting, # 10 tablet, 0 Refills, Maintenance, 03/13/20 9:49:00 EST, Tablet, [facility], Partial fill upon patient [...]
--- OUTSIDE RECORDS SUMMARY | 2024-02-06 12:45 | XMS_ITS | Continuity of Care Document ---
Author Organization [facility] Address [address] [place] [address] [address] [place] [address]- Care Team Providers Care Computer Support Specialist Instructor Name Role Phone Annette Castillo NP Primary Care Physician [facility]): 09[facility]20 - 10/08/20 [facility] [address] [place], [place] [address] Allergies, Adverse Reactions, Alerts Substance Reaction [...] Refills, Maintenance, 04/08/20 8:32:00 EST, [facility], 164, cm, 03/17/20 16:43:00 EST, Height, 76.3, kg, 03/12/20 13:32:00 EST, Dry Weight Start Date: 04/08/20 Status: Ordered baclofen 10 mg oral tablet 10 mg, 1, tablet, By Mouth, Daily at bedtime, TAKE 1 TABLET BY MOUTH EVERYDAY AT BEDTIME, # 90 tablet, Refills 0, Tot. Refills 0, Maintenance, 08/05/20 12:52:00 EDT, Route to Pharmacy Electronically,[facility] #[id number], Partial fill upon patient re... Start Date: 08/05/20 Status: Ordered calcium (as carbonate)-vitamin D 500 mg-400 intl units oral tablet 1 tablet, By Mouth, 2 times a day, # 180 tablet, 1 Refills, Maintenance, 05/05/20 16:26:00 EST, Tablet, [facility] #[id number], 1 tablet By Mouth 2 times a [...] 0 Refills, Maintenance, 11/12/19 16:33:00 EDT, Capsule, [facility]/pharmacy #0993, 158, cm, 11/12/19 15:02:00 EDT, Height, [...] tablet, 0 Refills, Maintenance, 09/27/20 14:38:00 EDT, [facility]/pharmacy #0993, 157, cm, 09/07/20 14:26:00 EDT, Height, 76.3, kg, 03/12... Start Date: 09/27/20 Status: Ordered levothyroxine 0.088 mg oral tablet 1 tablet, By Mouth, Daily, # 30 tablet, 2 Refills, Maintenance, 09/09/20 8:28:00 EDT, [facility] #[id number], Rx resent from 09/05, 157, cm, 09/07/20 14:26:00 EDT, Height, 76.3, kg, 03/12/20 13:32:00 EST, Dry Weight Start Date: 09/09/20 Status: Ordered Mirapex 1 mg oral tablet 1.5 tablet = 1.5 mg, By Mouth, 3 times a day, # 135 tablet, 5 Refills, Maintenance, 09/09/20 8:27:00 EDT, [facility] #[id number], 157, cm, 09/07/20 14:26:00 EDT, Height, 76.3, [...] EDT, Route to Pharmacy Electronically, [facility] #[id number], 157, cm, 06/30/20 10:07:00 EST, Height, 76.3, kg, 03/12/20 13:32:00 EST, Dry We... Start Date: 08/05/20 Status: Ordered Zofran 4 mg oral tablet 1 tablet = 4 mg, By Mouth, Every 8 hours, PRN Nausea & Vomiting, # 10 tablet, 0 Refills, Maintenance, 03/13/20 9:49:00 EST, Tablet, [facility], Partial fill upon [...]
--- OUTSIDE RECORDS SUMMARY | 2024-02-06 12:45 | XMS_ITS | Continuity of Care Document ---
Author Organization [facility] Adult Address [address] [place] [address]- Care Team Providers Care Vegetable Preparer Name Role Phone Annette Castillo NP Primary Care Physician [facility] Date[facility]): 09/22/20 - 10/22/20 [facility] [address] [place] [address]- Allergies, Adverse Reactions, Alerts Substance Reaction Severity [...] Refills, Maintenance, 04/08/20 8:32:00 EST, [facility], 164, cm, 03/17/20 16:43:00 EST, Height, 76.3, kg, 03/12/20 13:32:00 EST, Dry Weight Start Date: 04/08/20 Status: Ordered baclofen 10 mg oral tablet 10 mg, 1, tablet, By Mouth, Daily at bedtime, TAKE 1 TABLET BY MOUTH EVERYDAY AT BEDTIME, # 90 tablet, Refills 0, Tot. Refills 0, Maintenance, 08/05/20 12:52:00 EDT, Route to Pharmacy Electronically[id number], Partial fill upon patient re... Start Date: 08/05/20 Status: Ordered calcium (as carbonate)-vitamin D 500 mg-400 intl units oral tablet 1 tablet, By Mouth, 2 times a day, # 180 tablet, 1 Refills, Maintenance, 05/05/20 16:26:00 EST, Tablet, [facility] #[id number], 1 tablet By Mouth 2 times a day, 164, cm, 03/17/20 16:43:00 EST, Height,76.3, kg, 03/12/20 13:32:00 EST, Dry Weight Start Date: 05/05/20 Status: Ordered CeleBREX 200 mg oral capsule 1 capsule = 200 mg, By Mouth, 2 times a day, Until mail order is delivered, # 28 capsule, 0 Refills, Maintenance, 10/19/19 12:34:00 EDT, Capsule, [facility]/pharmacy #[id number], 158, cm, 09/30/19 10:10:00 EDT, Height, [...] 0 Refills, Maintenance, 11/12/19 16:33:00 EDT, Capsule, [facility]/pharmacy #[id number], 158, cm, 11/12/19 15:02:00 EDT, Height, [...] tablet, 0 Refills, Maintenance, 09/27/20 14:38:00 EDT, [facility]/pharmacy #[id number], 157, cm, 09/07/20 14:26:00 EDT, Height, 76.3, kg, 03/12... Start Date: 09/27/20 Status: Ordered levothyroxine 0.088 mg oral tablet 1 tablet, By Mouth, Daily, # 30 tablet, 2 Refills, Maintenance, 09/09/20 8:28:00 EDT, [facility] #[id number], Rx resent from 09/05, 157, cm, 09/07/20 14:26:00 EDT, Height, 76.3, kg, 03/12/20 13:32:00 EST, Dry Weight Start Date: 09/09/20 Status: Ordered Mirapex 1 mg oral tablet 1.5 tablet = 1.5 mg, By Mouth, 3 times a day, # 135 tablet, 5 Refills, Maintenance, 09/09/20 8:27:00 EDT, [facility] #[id number], 157, cm, 09/07/20 14:26:00 EDT, Height, 76.3, [...] EDT, Route to Pharmacy Electronically, [facility] #[id number], 157, cm, 06/30/20 10:07:00 EST, Height, 76.3, kg, 03/12/20 13:32:00 EST, Dry We... Start Date: 08/05/20 Status: Ordered Zofran 4 mg oral tablet 1 tablet = 4 mg, By Mouth, Every 8 hours, PRN Nausea & Vomiting, # 10 tablet, 0 Refills, Maintenance, 03/13/20 9:49:00 EST, Tablet, [facility], Partial fill upon patient [...]
--- OUTSIDE RECORDS SUMMARY | 2024-02-06 12:46 | XMS_ITS | Continuity of Care Document ---
Author Organization [facility] ter Address [address] [place] [address]- Care Team Providers Care Orthotic Aide Name Role Phone Annette Castillo NP Primary Care Physician Encounter [facility] Date(s): 03/16/21 - 10/14/[address] [address] Attending Physician: Jay Jay Miller MD Admitting Physician: Jay Jay Miller MD Referring Physician: Jay Jay Miller MD Allergies, Adverse Reactions, Alerts Substance Reaction [...] Re corded influenza virus vaccine, inactivated 01/09/17 Mnago rded influenza virus vaccine, inactivated 3 01/08/17 [...] [facility] 2Location History[facility] 3Location History: [facility] 4Admin Note: high dose done at [facility] 5Admin Note: immun records 6Admin Note: immun records 7Admin Note: immun records 8Admin Note: immun records 9Admin Note: immun records 10Admin Note: immun records 11Admin Note: immun records Medications Aspirin Low Dose 81 mg oral delayed release tablet 1 tablet, By Mouth, Daily, # 30 tablet, 2 Refills, Maintenance, 09/26/21 10:21:00 EDT, [facility] #[id number], 157.4, cm, 08/10/21 9:43:00 EDT, Height, 77.6, kg, 06/29/21 7:08:00 EST, Dry Weight Start Date: 09/26/21 Status: Ordered baclofen 10 mg oral tablet 1, tablet, By Mouth, Daily at bedtime, # 30 tablet, Refills 2, Route to Pharmacy Electronically, [facility], 157.4, cm, 06/29/21 7:08:00 EST, Height, 77.6, kg, 06/29/21 7:08:00 EST, Dry Weight Start Date: 07/26/21 Status: Ordered calcium (as carbonate)-vitamin D 500 mg-400 intl units oral tablet 1 tablet, By Mouth, 2 times a day, # 180 tablet, 3 Refills, Maintenance, 11/09/20 8:38:00 EDT, Tablet, [facility] #[id number], 1 tablet By Mouth 2 times a [...] # 30 tablet, 5 Refills, [facility], 157.5, cm, 03/13/21 9:05:00 EST, Height, 76.3, [...] # 135 tablet, 5 Refills, [facility], 157.4, cm, 08/10/21 9:43:00 EDT, Height, 77.6, [...] tablet, Refills 5, Route to Pharmacy Electronically, [facility], 157.4, cm, 06/29/21 7:08:00 EST, Height, 77.6, [...]
--- OUTSIDE RECORDS SUMMARY | 2024-02-06 12:46 | XMS_ITS | Continuity of Care Document ---
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 Name Role Phone Annette Castillo NP Primary Care Physician [phone] [facility]counter [facility] Date(s): 02/07/23 - 03/09/23 [facility] Adult [address] [place] [address]- Allergies, Adverse Reactions, Alerts Substance Reaction Severity [...] virus vaccine, inactivated 6 01/24/12 Gi shakira [id number] 12y+ bivalent booster vax 03/02/22 Recorded SARS-CoV-2 [...] 09/29/07 Given 1Result Comment: [facility] [id number] 2Location History: pharmacy 3Location History: [facility] 4Admin Note: high dose done at [facility] 5Admin Note: immun records 6Admin Note: immun records 7Result Comment: [facility] 8Admin Note: immun records 9Admin Note: immun records 10Admin Note: immun records 11Admin Note: immun records 12Admin Note: immun records Medications Aspirin Low Dose 81 mg oral delayed release tablet 1 tablet, By Mouth, Daily, # 30 tablet, 5 Refills, Maintenance, 10/16/22 7:11:00 EDT, [facility]/pharmacy #1972, 158, cm, 10/10/22 9:38:00 EDT, Height, 80.8, kg, 10/04/22 20:27:00 EDT, Dry Weight Start Date: 10/16/22 Status: Ordered baclofen 10 mg oral tablet 1, tablet, By Mouth, Daily at bedtime, # 90 tablet, Refills 1, Tot. Refills 1, Maintenance, 02/18/23 10:44:00 EDT, Route to Pharmacy Electronically, [facility]/pharmacy #1972, 156.5, cm, 02/18/23 10:06:00 EDT, Height, [...] 3 Refills, Maintenance, 10/16/22 17:51:00 EDT, Tablet, [facility]/pharmacy #1972, 1 tablet By Mouth 2 times a day,x90 days, 158, cm, 10/10/22 9:38:00 EDT, Height, 80.8, kg, 10/04/22 20:27:00 EDT, Dry Weight Start Date: 10/16/22 Stop Date: 10/11/23 Status: Ordered gabapentin 600 mg oral tablet See Instructions, TAKE 1 TABLET BY MOUTH EVERY MORNING AND 1 TABLET EVERY NIGHT AT BEDTIME, # 60 tablet, 0 Refills, Maintenance, 02/05/23 11:14:00 EDT, [facility], 158, cm, 02/04/23 0:27:00 EDT,Height, 77, kg, 02/04/23 0:27:00 EDT, Dry Weight Start Date: 02/05/23 Status: Ordered levothyroxine 0.088 mg oral tablet See Instructions, TAKE 1 TABLET BY MOUTH EVERY DAY, # 90 tablet, 1 Refills, Maintenance, 01/04/23 7:17:00 EDT, [facility], 158, cm, 10/10/22 9:38:00 EDT, Height, 80.8, kg, 10/04/22 20:27:00 EDT,Dry Weight Start Date: 01/04/23 Status: Ordered meloxicam 15 mg oral tablet 1 tablet = 15 mg, By Mouth, Daily, # 30 tablet, 0 Refills, Maintenance, 02/06/23 15:50:00 EDT, Tablet, [facility]/pharmacy #1972, Partial fill upon patient request if the prescription is for a schedule II opioid drug., 158, cm, 02/06/23 15:24:00 EDT, Height,... Start Date: 02/06/23 Stop Date: 03/06/23 Status: Ordered pramipexole 1 mg oral tablet 1.5 tablet, By Mouth, 3 times a day, # 135 tablet, 5 Refills, Maintenance, 09/18/22 8:41:00 EDT, [facility]/pharmacy #1972, 157.4, cm, 02/05/22 10:42:00 EDT, Height, [...] 02/05/23 3:59:00 EDT, Route to Pharmacy Electronically, [facility], 158, cm, 02/04/23 0:27:00 EDT, Height, 77, [...] Team Personnel Name: Angie Pope Position: [facility] Onco RN Member Role: Primary Care Nurse Name: Julissa Patel RN Position: [facility] RN Member Role: Primary Care Nurse Name: Olga Brooke RN Position: [facility] RN Member Role: Primary Care Nurse Name: Annette Castillo NP Position: [facility] PCO Associate Professional Member Role: PCP Address: Address: [address] [place] [address]- Name: Grady Ortiz Position: [facility] Outreach Member Role: Lifetime Consulting Physician Address: Address: [address] [place] [id number] Care Team Related Persons Name: KELLEE BARRAGAN Name: ANUEL PARKER Address: [address] [place] [address] Name: ANUEL GU Address: [address] [place] [address] Name: KELLEE PEÑA Address: home [address] [place] [address]
--- OUTSIDE RECORDS SUMMARY | 2024-02-06 12:46 | XMS_ITS | Continuity of Care Document ---
Author Organization [facility] Adult Address [address] [place] [address]- Care Team Providers Care Cleaning Maid Name Role Phone Annette Castillo NP Primary Care Physician [facility] Date[facility]s): 11/07/20 - 12/07/20 [facility] Adult [address] [place] [address]- Allergies, Adverse Reactions, Alerts Substance Reaction Severity [...] [facility] 4Admin Note: high dose done at [facility] 5Admin Note: immun records 6Admin Note: immun records 7Admin Note: immun records 8Admin Note: immun records 9Admin Note: immun records 10Admin Note: immun records 11Admin Note: immun records Medications aspirin 81 mg oral delayed release tablet = 81 mg, By Mouth, Daily, # 30 tablet, 3 Refills, Maintenance, 11/07/20 15:07:00 EDT, [id number], 157, cm, 09/07/20 14:26:00 EDT, Height, 76.3, kg, 03/12/20 13:32:00 EST, Dry Weight Start Date: 11/07/20 Status: Ordered baclofen 10 mg oral tablet 10 mg, 1, tablet, By Mouth, Daily at bedtime, TAKE 1 TABLET BY MOUTH EVERYDAY AT BEDTIME, # 90 tablet, Refills 0, Tot. Refills 0, Maintenance, 11/09/20 8:38:00 EDT, Route to Pharmacy Electronically, [id number], Partial fill upon patient req... Start Date: 11/09/20 Stop Date: 02/07/21 Status: Ordered calcium (as carbonate)-vitamin D 500 mg-400 intl units oral tablet 1 tablet, By Mouth, 2 times a day, # 180 tablet, 3 Refills, Maintenance, 11/09/20 8:38:00 EDT, Tablet, [id number], 1 tablet By Mouth 2 times a [...] 30 sprays, 0 Refills, Acute, [facility], 30, SPRAY 2 SPRAYS INTO BOTH NOSTRILS 2 TIMES A DAY FOR 30 DAYS, 157.5, cm, 11/09/20 8:24:00 EDT, Height, 76.3, kg, 03/12/20... Start Date: 12/02/20 Status: Ordered levothyroxine 0.088 mg oral tablet 1 tablet, By Mouth, Daily, # 30 tablet, 5 Refills, Maintenance, 12/01/20 11:20:00 EDT, [facility], 157.5, cm, 11/09/20 8:24:00 EDT, Height, 76.3, kg, 03/12/20 13:32:00 EST, Dry Weight Start Date: 12/01/20 Status: Ordered Mirapex 1 mg oral tablet 1.5 tablet = 1.5 mg, By Mouth, 3 times a day, # 135 tablet, 5 Refills, Maintenance, 09/09/20 8:27:00 EDT, [id number], 157, cm, 09/07/20 14:26:00 EDT, Height, 76.3, [...] EDT, Route to Pharmacy Electronically, [facility] #[id number], 157, cm, 06/30/20 10:07:00 EST, Height, 76.3, kg, 03/12/20 13:32:00 EST, Dry We... Start Date: 08/05/20 Status: Ordered Zofran 4 mg oral tablet 1 tablet = 4 mg, By Mouth, Every 8 hours, PRN Nausea & Vomiting, # 10 tablet, 0 Refills, Maintenance, 03/13/20 9:49:00 EST, Tablet, [facility], Partial fill upon [...]
--- OUTSIDE RECORDS SUMMARY | 2024-02-06 12:46 | XMS_ITS | Continuity of Care Document ---
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 Name Role Phone Annette Castillo NP Primary Care Physician [facility]s): 11/07/20 - 12/07/20 [facility] Adult [address] [place] [address]- Allergies, Adverse Reactions, Alerts Substance Reaction Severity [...] [facility] 4Admin Note: high dose done at [facility] 5Admin Note: immun records 6Admin Note: immun records 7Admin Note: immun records 8Admin Note: immun records 9Admin Note: immun records 10Admin Note: immun records 11Admin Note: immun records Medications aspirin 81 mg oral delayed release tablet = 81 mg, By Mouth, Daily, # 30 tablet, 3 Refills, Maintenance, 11/07/20 15:07:00 EDT, [id number], 157, cm, 09/07/20 14:26:00 EDT, Height, 76.3, kg, 03/12/20 13:32:00 EST, Dry Weight Start Date: 11/07/20 Status: Ordered baclofen 10 mg oral tablet 10 mg, 1, tablet, By Mouth, Daily at bedtime, TAKE 1 TABLET BY MOUTH EVERYDAY AT BEDTIME, # 90 tablet, Refills 0, Tot. Refills 0, Maintenance, 11/09/20 8:38:00 EDT, Route to Pharmacy Electronically, [id number], Partial fill upon patient req... Start Date: 11/09/20 Stop Date: 02/07/21 Status: Ordered calcium (as carbonate)-vitamin D 500 mg-400 intl units oral tablet 1 tablet, By Mouth, 2 times a day, # 180 tablet, 3 Refills, Maintenance, 11/09/20 8:38:00 EDT, Tablet, [facility] #[id number], 1 tablet By Mouth 2 times a [...] 30 sprays, 0 Refills, Acute, [facility], 30, SPRAY 2 SPRAYS INTO BOTH NOSTRILS 2 TIMES A DAY FOR 30 DAYS, 157.5, cm, 11/09/20 8:24:00 EDT, Height, 76.3, kg, 03/12/20... Start Date: 12/02/20 Status: Ordered levothyroxine 0.088 mg oral tablet 1 tablet, By Mouth, Daily, # 30 tablet, 5 Refills, Maintenance, 12/01/20 11:20:00 EDT, [facility], 157.5, cm, 11/09/20 8:24:00 EDT, Height, 76.3, kg, 03/12/20 13:32:00 EST, Dry Weight Start Date: 12/01/20 Status: Ordered Mirapex 1 mg oral tablet 1.5 tablet = 1.5 mg, By Mouth, 3 times a day, # 135 tablet, 5 Refills, Maintenance, 09/09/20 8:27:00 EDT, [id number], 157, cm, 09/07/20 14:26:00 EDT, Height, 76.3, [...] EDT, Route to Pharmacy Electronically, [facility] #[id number], 157, cm, 06/30/20 10:07:00 EST, Height, 76.3, kg, 03/12/20 13:32:00 EST, Dry We... Start Date: 08/05/20 Status: Ordered Zofran 4 mg oral tablet 1 tablet = 4 mg, By Mouth, Every 8 hours, PRN Nausea & Vomiting, # 10 tablet, 0 Refills, Maintenance, 03/13/20 9:49:00 EST, Tablet, [facility], Partial fill upon patient [...]
--- OUTSIDE RECORDS SUMMARY | 2024-02-06 12:46 | XMS_ITS | Continuity of Care Document ---
Author Organization [facility] Adult Address [address] [place] [address]- Care Team Providers Care Executive Chairman Name Role Phone Annette Castillo NP Primary Care Physician [phone] [facility] Date(s): 05/28/22 - 06/27/22 [facility] Adult [address] [place] [address]- Allergies, Adverse Reactions, Alerts Substance Reaction Severity [...] tetanus/diphtheria/pertussis, acel(Tdap) 12 09/29/07 Given 1Result Comment: [facility] [id number] 2Location History: pharmacy 3Location History: [facility] 4Admin Note: high dose done at [facility] 5Admin Note: immun records 6Admin Note: immun records 7Result Comment: [facility] 8Admin Note: immun records 9Admin Note: immun records 10Admin Note: immun records 11Admin Note: immun records 12Admin Note: immun records Medications Aspirin Low Dose 81 mg oral delayed release tablet 1 tablet, By Mouth, Daily, # 30 tablet, 2 Refills, Maintenance, 06/26/22 8:57:00 EST, [facility], 157.4, cm, 02/05/22 10:42:00 EDT, Height, 77.6, kg, 06/29/21 7:08:00 EST, Dry Weight Start Date: 06/26/22 Status: Ordered baclofen 10 mg oral tablet 1, tablet, By Mouth, Daily at bedtime, # 30 tablet, Refills 2, Maintenance, 04/27/22 7:15:00 EST, Route to Pharmacy Electronically, [facility] 268[facility], 157.4, cm, 02/05/22 10:42:00 EDT, Height, 77.6, kg, 06/29/21 7:08:00 EST, Dry Weight Start Date: 04/27/22 Status: Ordered calcium (as carbonate)-vitamin D 500 mg-400 intl units oral tablet 1 tablet, By Mouth, 2 times a day, # 180 tablet, 3 Refills, Maintenance, 11/09/20 8:38:00 EDT, Tablet, [facility] #[id number], 1 tablet By Mouth 2 times a [...] 0, Maintenance, CPAP MACHINE USE NIGHTLY FOR TARE DX CENTRAL SLEEP APNEA CPAP 6 with a heated humidifier. Recommend ordering a machinewith compliance data capabilities and followi... Start Date: 03/01/17 Status: Ordered gabapentin 600 mg oral tablet See Instructions, TAKE 1 TABLET BY MOUTH EVERY MORNING AND 1 TABLET EVERY NIGHT AT BEDTIME, # 60 tablet, 0 Refills, Maintenance, 06/26/22 10:24:00 EST, [id number], 157.4, cm, 02/05/22 10:42:00 EDT, Height, 77.6, kg, 06/29/21 7:08:00 EST, Start Date: 06/26/22 Status: Ordered levothyroxine 0.088 mg oral tablet 1 tablet, By Mouth, Daily, for 90 days, # 90 tablet, 3 Refills, Physician Stop 04/29/23 8:23:00 EST, 05/04/22 8:23:00 EST, [id number], LABS NEEDED FOR FURTHER REFILLS, 157.4, cm, [...] Refills, Maintenance, 02/26/22 15:10:00 EDT, [facility], 157.4, cm, 02/05/22 10:42:00 EDT, Height, 77.6, [...] 05/27/22 14:05:00 EST, Route to Pharmacy Electronically, [facility] 78567, 157.4, cm, 02/05/22 10:42:00 EDT, Height, 77.6, [...] Pope Position: [facility] Onco RN Member Role: Primary Care Nurse Name: Olga Brooke RN Position: [facility] RN Member Role: Primary Care Nurse Name: Annette Castillo NP Position: [facility] PCO Associate Professional Member Role: PCP Address: Address: [address] [place] [address]- [place] Name: Grady Ortiz Position: [facility] Outreach Member Role: Lifetime Consulting Physician Address: Address: [address] [place] [address], [address] [address]- Care Team Related Persons Name: ANUEL PARKER Address: [address] [place] [address] Name: KELLEE PEÑA Address: [address] [place] [address]
--- OUTSIDE RECORDS SUMMARY | 2024-02-06 12:46 | XMS_ITS | Continuity of Care Document ---
Author Organization [facility] ter Address [address] [place] [id number]- Care Team Providers Care Cake Wrapper Name Role Phone Cecilia SANTAMARIA, Leonarda Primary Care Physician Encounter [facility] Date(s): 05/20/19 - 05/20/[address] [address]- [facility] Encounter Diagnosis Radial head fracture, closed(Final) - 05/20/19 Fall due to slipping on ice or snow(Final) - 05/20/19 Wrist pain, right(Final) - 05/20/19 Discharge Disposition: A-D/C Home Attending Physician: Yaron Alva MD Admitting Physician: Yaron Alva MD Referring Physician: Not on Staff, Referring [...] 09/29/07 Given 1Location History: pharmacy 2Location History: [facility] 3Admin Note: high dose done at [facility] 4Admin Note: immun records 5Admin Note: immun records 6Admin Note: immun records 7Admin Note: immun records 8Admin Note: immun records 9Admin Note: immun records 10Admin Note: immun records Medications aspirin 81 mg oral delayed release tablet 81 mg, By Mouth, Daily, # 60 tablet, Refills 3, Tot. Refills 3, Maintenance, 03/04/19 15:42:41 EST,Route to Pharmacy Electronically, [id number], [facility]/pharmacy #[id number] Start Date: 03/04/19 Stop Date: 10/30/19 Status: Ordered baclofen 10 mg oral tablet 10 mg, 1, tablet, By Mouth, Daily at bedtime, # 30 tablet, Refills 2, Tot. Refills 2, Soft Stop, 04/08/19 11:08:07 EST, Route to Pharmacy Electronically, [id number], [facility]/pharmacy #[id number], 157, cm, 03/04/19 15:05:00 EST, Height,... [...] tablet, 5 Refills, Maintenance, 05/08/19 15:54:00 EST, [facility]/pharmacy #[id number], 157, cm, 05/07/19 16:41:00 EST, Height, 76.8, kg, 03/06/19 13:57:00 EST,Dry Weight Start Date: 05/08/19 Stop Date: 11/04/19 Status: Ordered Multivitamin With Minerals By Mouth, 0 Refills, Maintenance Start Date: 04/02/11 Status: Ordered Percocet-5/325 325 mg-5 mg oral tablet 1, tablet, By Mouth, Every 4 hours, PRN, for 2 days, # 7 tablet, Refills 0, Tot. Refills 0, Acute, as needed for pain, 05/22/19 20:52:00 EST, 05/20/19 20:52:00 EST, Route to Pharmacy Electronically, [facility]/pharmacy #[id number] Tablet, Partial fill upon patient... Start Date: 05/20/19 Stop Date: 05/22/19 Status: Ordered traZODone 100 mg oral tablet 100 mg, 1, tablet, By Mouth, Daily at bedtime, # 30 tablet, Refills 2, Tot. Refills 2, Soft Stop, 05/12/19 13:56:00 EST, Route to Pharmacy Electronically, [facility]/pharmacy #[id number], 157, cm, 05/07/19 16:41:00 EST, Height, [...] 3 days. 3Dexa 2014 osteopenia 4last dexa 2013 Results Radiology Reports * Exam Date Time Procedure Performing Provider Status 05/20/19 8:22 PM Elbow Min 3 Views Right Eva Rodríguez; Auth (Verified) Notes: (Elbow Min 3 Views Right) Reason For Exam: Trauma RESULT: Elbow Min 3 Views Right Wrist Comp Min 3 Views Right, Forearm 2 Views Right, Elbow Min 3 Views Right CLINICAL INDICATION: Refer to EMR; Reason: Trauma; Clinical Question(s): Fracture; Hx of Present Illness: Patient states she slipped fell at work on Saturday, c o R elbow forearm pain since. Pt seen aturgent care prior to arrival, Xray showing a R radial head fracture. Pt instructed to go to ED for further eval. Pt denies numbness tingling.; Other Objective Findings: Pt awake alert, comfortable well appearing COMPARISONS: None TECHNIQUE: AP and lateral views of the right forearm. AP, lateral, and oblique views of the right elbow. AP, lateral, oblique and stress views of the right wrist were obtained. FINDINGS: There is a nondisplaced radial head fracture. The distal humerus and proximal ulna are intact. There is a small elbow joint effusion. No distal forearm or wrist fracture is visualized. There is crowding of carpal joint spaces. No carpal fracture is visualized. No retained radiodense foreign body. IMPRESSION: Nondisplaced radial head fracture. Small elbow joint effusion. No distal forearm or wrist fracture is visualized. WSN: [id number] Dictated By: Antoine Gregory MD Dictated Date/Time: 05/20/19 8:34 pm Reviewed By: Antoine Gregory MD Signed By: Antoine Gregory MD Signed Date/Time: 05/20/19 8:34 pm Transcribed By: LAYA Transcribed Date/Time: 05/20/19 8:28 pm * Exam Date Time Procedure Performing Provider Status 05/20/19 8:22 PM Forearm 2 Views Right Jeanie Rodríguez [facility] (Verified) Notes: (Forearm 2 Views Right) Reason For Exam: Trauma RESULT: Forearm 2 Views Right Wrist Comp Min 3 Views Right, Forearm 2 Views Right, Elbow Min 3 Views Right CLINICAL INDICATION: Refer to EMR; Reason: Trauma; Clinical Question(s): Fracture; Hx of Present Illness: Patient states she slipped fell at work on Saturday, c o R elbow forearm pain since. Pt seen aturgent care prior to arrival, Xray showing a R radial head fracture. Pt instructed to go to ED for further eval. Pt denies numbness tingling.; Other Objective Findings: Pt awake alert, comfortable well appearing COMPARISONS: None TECHNIQUE: AP and lateral views of the right forearm. AP, lateral, and oblique views of the right elbow. AP, lateral, oblique and stress views of the right wrist were obtained. FINDINGS: There is a nondisplaced radial head fracture. The distal humerus and proximal ulna are intact. There is a small elbow joint effusion. No distal forearm or wrist fracture is visualized. There is crowding of carpal joint spaces. No carpal fracture is visualized. No retained radiodense foreign body. IMPRESSION: Nondisplaced radial head fracture. Small elbow joint effusion. No distal forearm or wrist fracture is visualized. WSN: [id number] Dictated By: Antoine Gregory MD Dictated Date/Time: 05/20/19 8:34 pm Reviewed By: Antoine Gregory MD Signed By: Antoine Gregory MD Signed Date/Time: 05/20/19 8:34 pm Transcribed By: LAYA Transcribed Date/Time: 05/20/19 8:28 pm * Exam Date Time Procedure Performing Provider Status 05/20/19 8:22 PM Wrist Comp Min 3 Views Right Sherwin Rodríguez moisés; Auth (Verified) Notes: (Wrist Comp Min 3 Views Right) Reason For Exam: Trauma RESULT: Wrist Comp Min 3 Views Right Wrist Comp Min 3 Views Right, Forearm 2 Views Right, Elbow Min 3 Views Right CLINICAL INDICATION: Refer to EMR; Reason: Trauma; Clinical Question(s): Fracture; Hx of Present Illness: Patient states she slipped fell at work on Saturday, c o R elbow forearm pain since. Pt seen aturgent care prior to arrival, Xray showing a R radial head fracture. Pt instructed to go to ED for further eval. Pt denies numbness tingling.; Other Objective Findings: Pt awake alert, comfortable well appearing COMPARISONS: None TECHNIQUE: AP and lateral views of the right forearm. AP, lateral, and oblique views of the right elbow. AP, lateral, oblique and stress views of the right wrist were obtained. FINDINGS: There is a nondisplaced radial head fracture. The distal humerus and proximal ulna are intact. There is a small elbow joint effusion. No distal forearm or wrist fracture is visualized. There is crowding of carpal joint spaces. No carpal fracture is visualized. No retained radiodense foreign body. IMPRESSION: Nondisplaced radial head fracture. Small elbow joint effusion. No distal forearm or wrist fracture is visualized. WSN: [id number] Dictated By: Antoine Gregory MD Dictated Date/Time: 05/20/19 8:34 pm Reviewed By: Antoine Gregory MD Signed By: Antoine Gregory MD Signed Date/Time: 05/20/19 8:34 pm Transcribed By: LAYA Transcribed Date/Time: 05/20/19 8:28 pm Vital Signs Most recent to oldest [Reference Range]: 1 2 3 Weight 77.2 kg (05/20/19 8:41 PM) 77.2 kg (05/20/19 6:40 PM) 77.2 kg (05/20/19 5:38 PM) Oxygen Saturation [94-100 %] 95 % (05/20/19 8:41 PM) 94 % (05/20/19 5:38 PM) Pulse Rate [55-90 bpm] 82 bpm (05/20/19 8:41 PM) 80 bpm (05/20/19 5:38 PM) Blood Pressure [90-138/55-84 mm Hg] 117/72mm Hg (05/20/19 8:41 PM) 110/54mm Hg (05/20/19 5:38 PM) Respiratory Rate [16-30 br/min] 16 br/min (05/20/19 8:41 PM) 18 br/min (05/20/19 8:03 PM) 18 br/min (05/20/19 5:38 PM) Temperature [96.8-100.4 DegF] 98.2 DegF (05/20/19 8:41 PM) 98.4 DegF (05/20/19 5:38 PM) Mode of Delivery (Oxygen) Room air (05/20/19 8:41 PM) Room air (05/20/19 5:38 PM) Blood pressure sites Arm, left (05/20/19 8:41 PM) Arm, right (05/20/19 5:38 PM) Temperature Route Oral (05/20/19 8:41 PM) Oral (05/20/19 5:38 PM) Dry Weight 77.2 kg (05/20/19 8:41 PM) 77.2 kg (05/20/19 6:40 PM) 77.2 kg (05/20/19 5:38 PM) Weight Obtained Via Standing scale (05/20/19 5:38 PM) Dry Weight Obtained Via Standing scale (05/20/19 5:38 PM) Social History Social History Type Response Smoking Status Former smoker; Type: Cigarettes; Tobacco use times per day: quit smoking 30 yrs ago; entered on: 06/25/15 Sex
--- OUTSIDE RECORDS SUMMARY | 2024-02-06 12:46 | XMS_ITS | Continuity of Care Document ---
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 Start Date: 08/19/19 Status: Ordered calcium (as carbonate)-vitamin D 500 mg-400 intl units oral tablet 1 tablet, By Mouth, 2 times a day, # 180 tablet, 1 Refills, Maintenance, 10/27/19 9:07:00 EDT, Tablet, [facility][id number], 1 tablet By Mouth 2 times a day, 158, cm, 09/30/19 10:10:00 EDT, Height, 77.2, kg, 05/20/19 20:41:00 EST, Dry Weight Start Date: 10/27/19 Status: Ordered CeleBREX 200 mg oral capsule 1 capsule = 200 mg, By Mouth, 2 times a day, Take with food to avoid upset stomach, # 180 capsule, 0 Refills, Maintenance, 10/19/19 12:33:00 EDT, Capsule, [facility] #[id number], 158, cm, 09/30/19 10:10:00 EDT, Height, 77.2, kg, 05/20/19 20:41:00 EST,... Start Date: 10/19/19 Stop Date: 01/17/20 Status: Ordered CeleBREX 200 mg oral capsule 1 capsule = 200 mg, By Mouth, 2 times a day, Until mail order is delivered, # 28 capsule, 0 Refills, Maintenance, 10/19/19 12:34:00 EDT, Capsule, [facility]/pharmacy #[id number], 158, cm, 09/30/19 [...] 180 tablet, 1 Refills, Maintenance, [facility], 158, cm, 07/30/19 12:49:00 EDT, Height, 77.2, [...] tablet, 5 Refills, Maintenance, 05/08/19 15:54:00 EST, [facility]/pharmacy #[id number], 157, cm, 05/07/19 [...] 08/12/19 8:23:00 EDT, Route to Pharmacy Electronically, [facility]/pharmacy #[id number], 158, cm, 07/30/19 [...]
--- OUTSIDE RECORDS SUMMARY | 2024-02-06 12:46 | XMS_ITS | Continuity of Care Document ---
Author Organization [facility] Adult Address [address] [place] [address]- Care Team Providers Care Field Services Manager Name Role Phone Annette Castillo NP Primary Care Physician Encounter [facility] Date(s): 02/04/23 - 03/06/23 [facility] [address] [place] [address]- Allergies, Adverse Reactions, Alerts Substance Reaction Severity [...] virus vaccine, inactivated 6 01/24/12 Gi shakira [id number] 12y+ bivalent booster vax 03/02/22 Recorded SARS-CoV-2 [...] acel(Tdap) 12 09/29/07 Given 1Result Comment: [facility] [id number] 2Location History: pharmacy 3Location History: [facility] 4Admin Note: high dose done at [facility] 5Admin Note: immun records 6Admin Note: immun records 7Result Comment: [facility] 8Admin Note: immun records 9Admin Note: immun records 10Admin Note: immun records 11Admin Note: immun records 12Admin Note: immun records Medications Aspirin Low Dose 81 mg oral delayed release tablet 1 tablet, By Mouth, Daily, # 30 tablet, 5 Refills, Maintenance, 10/16/22 7:11:00 EDT, [facility]/pharmacy #1972, 158, cm, 10/10/22 9:38:00 EDT, Height, 80.8, kg, 10/04/22 20:27:00 EDT, Dry Weight Start Date: 10/16/22 Status: Ordered baclofen 10 mg oral tablet 1, tablet, By Mouth, Daily at bedtime, # 90 tablet, Refills 1, Tot. Refills 1, Maintenance, 02/18/23 10:44:00 EDT, Route to Pharmacy Electronically, [facility]/pharmacy #1972, 156.5, cm, 02/18/23 10:06:00 EDT, [...] Refills, Maintenance, 10/16/22 17:51:00 EDT, Tablet, [facility]/pharmacy #1972, 1 tablet By Mouth 2 times a day,x90 days, 158, cm, 10/10/22 9:38:00 EDT, Height, 80.8, kg, 10/04/22 20:27:00 EDT, Dry Weight Start Date: 10/16/22 Stop Date: 10/11/23 Status: Ordered gabapentin 600 mg oral tablet See Instructions, TAKE 1 TABLET BY MOUTH EVERY MORNING AND 1 TABLET EVERY NIGHT AT BEDTIME, # 60 tablet, 0 Refills, Maintenance, 02/05/23 11:14:00 EDT, [facility], 158, cm, 02/04/23 0:27:00 EDT,Height, 77, kg, 02/04/23 0:27:00 EDT, Dry Weight Start Date: 02/05/23 Status: Ordered levothyroxine 0.088 mg oral tablet See Instructions, TAKE 1 TABLET BY MOUTH EVERY DAY, # 90 tablet, 1 Refills, Maintenance, 01/04/23 7:17:00 EDT, [facility], 158, cm, 10/10/22 9:38:00 EDT, Height, 80.8, kg, 10/04/22 20:27:00 EDT,Dry Weight Start Date: 01/04/23 Status: Ordered meloxicam 15 mg oral tablet 1 tablet = 15 mg, By Mouth, Daily, # 30 tablet, 0 Refills, Maintenance, 02/06/23 15:50:00 EDT, Tablet, [facility]/pharmacy #1972, Partial fill upon patient request if the prescription is for a schedule II opioid drug., 158, cm, 02/06/23 15:24:00 EDT, Height,... Start Date: 02/06/23 Stop Date: 03/06/23 Status: Ordered pramipexole 1 mg oral tablet 1.5 tablet, By Mouth, 3 times a day, # 135 tablet, 5 Refills, Maintenance, 09/18/22 8:41:00 EDT, [facility]/pharmacy #1972, 157.4, cm, 02/05/22 10:42:00 EDT, [...] 02/05/23 3:59:00 EDT, Route to Pharmacy Electronically, [facility] STORE 430[facility], 158, cm, 02/04/23 0:27:00 EDT, Height, 77, [...] Care Team Personnel Name: Angie Pope Position: [facility] Onco RN Member Role: Primary Care Nurse Name: Julissa Patel RN Position: [facility] RN Member Role: Primary Care Nurse Name: Olga Brooke RN Position: [facility] RN Member Role: Primary Care Nurse Name: Annette Castillo NP Position: [facility] PCO Associate Professional Member Role: PCP Address: Address: [address] [place] [address]- Name: Grady Ortiz Position: [facility] Outreach Member Role: Lifetime Consulting Physician Address: Address: [address] [place] [id number] Care Team Related Persons Name: KELLEE BARRAGAN Name: ANUEL PARKER Address: [address] [place] [address] Name: ANUEL GU Address: [address] [place] [address] Name: KELLEE PEÑA Address: [address] [place] [address]
--- OUTSIDE RECORDS SUMMARY | 2024-02-06 12:46 | XMS_ITS | Continuity of Care Document ---
Author Organization [facility] Address [address] [place] [address]- Care Team Providers Care Cso Name Role Phone Cecilia SANTAMARIA, Leonarda Primary Care Physician Encounter [facility] Date(s): 07/24/19 - 08/03/[address] [facility] [address] [place] [phone]- [facility] Attending Physician: Miles Olea Admitting [...] Maintenance, 03/04/19 15:42:41 EST,Route to Pharmacy Electronically, [id number], [facility]/pharmacy #[id number] Start Date: 03/04/19 Stop Date: 10/30/19 Status: Ordered baclofen 10 mg oral tablet See Instructions, TAKE 1 TABLET BY MOUTH EVERYDAY AT BEDTIME, # 90 tablet, Refills 0, Maintenance, Instructions Replace Required Details, Route to Pharmacy Electronically, [facility] STORE [facility]7631, 157, cm, 06/23/19 9:54:00 EST, Height, 77.2, kg, 05/20/19 20:4... Start Date: 07/01/19 Status: Ordered calcium (as carbonate)-vitamin D 500 mg-400 intl units oral tablet 1 tablet, By Mouth, 2 times a day, # 60 tablet, 5 Refills, Maintenance, 05/26/19 13:08:00 EST, Tablet, [facility]/pharmacy #[id number], 1 tablet By Mouth [...] 1 Refills, Maintenance, 08/03/19 9:15:00 EDT, Capsule, [facility]/pharmacy #[id number], 158, cm, 07/30/19 12:49:00 [...] 17:59:00 EST, Route to Pharmacy Electronically, [facility] STORE [address], 157, cm, 05/07/19 1... Start Date: 05/26/19 Status: Ordered lactulose 10 gm/15 ml oral syrup 15 mL = 10 Gm, By Mouth, 2 times a day, PRN as needed for constipation, # 480 mL, 1 Refills, Maintenance, 07/27/19 12:04:00 EDT, Syrup, [facility]/pharmacy #0993, 15 mL By Mouth [...] 5 Refills, Maintenance, 05/08/19 15:54:00 EST, [facility]/pharmacy #[id number], 157, cm, 05/07/19 16:41:00 [...] 08/06/19 13:16:00 EDT, 07/30/19 13:16:00 EDT, Tablet, [facility]/pharmacy #[id number], 158, cm, 07/30/19 12:49:00 EDT, Height, 77.2, kg,05/20/19 20:41:00 EST, Dry Weight Start Date: 07/30/19 Stop Date: 08/06/19 Status: Ordered traZODone 100 mg oral tablet 100 mg, 1, tablet, By Mouth, Daily at bedtime, # 30 tablet, Refills 2, Tot. Refills 2, Soft Stop, 05/12/19 13:56:00 EST, Route to Pharmacy Electronically, [facility]/pharmacy #[id number], 157, cm, 05/07/19 16:41:00 [...]
--- OUTSIDE RECORDS SUMMARY | 2024-02-06 12:46 | XMS_ITS | Continuity of Care Document ---
Author Organization [facility] Adult Address [address] [place] [address]- Care Team Providers Care Sales Market Leader Name Role Phone Swapnil SANTAMARIA, Annette Primary Care Physician Encounter [facility] Date(s): 11/12/19 - 11/19/19 [facility] Adult [address] [place] [phone]- [facility] Encounter Diagnosis Lumbar spondylosis(Discharge Diagnosis) - 11/12/19 Attending Physician: Annette Kraft NP Allergies, Adverse [...] Replace Required Details, Route to Pharmacy Electronically, [facility] STORE [address]27, 158, cm, 07/30/19 12:49:00 EDT, Height, 77.2, kg, 05/20/19 20:... Start Date: 08/19/19 Status: Ordered calcium (as carbonate)-vitamin D 500 mg-400 intl units oral tablet 1 tablet, By Mouth, 2 times a day, # 180 tablet, 1 Refills, Maintenance, 10/27/19 9:07:00 EDT, Tablet, [facility] #[id number], 1 tablet By Mouth 2 times a day, 158, cm, 09/30/19 10:10:00 EDT, Height, 77.2, kg, 05/20/19 20:41:00 EST, Dry Weight Start Date: 10/27/19 Status: Ordered CeleBREX 200 mg oral capsule 1 capsule = 200 mg, By Mouth, 2 times a day, Take with food to avoid upset stomach, # 180 capsule, 0 Refills, Maintenance, 10/19/19 12:33:00 EDT, Capsule, [facility] #[id number], 158, cm, 09/30/19 10:10:00 EDT, Height, 77.2, kg, 05/20/19 20:41:00 EST,... Start Date: 10/19/19 Stop Date: 01/17/20 Status: Ordered CeleBREX 200 mg oral capsule 1 capsule = 200 mg, By Mouth, 2 times a day, Until mail order is delivered, # 28 capsule, 0 Refills, Maintenance, 10/19/19 12:34:00 EDT, Capsule, [facility]/pharmacy #[id number], 158, cm, 09/30/19 10:10:00 EDT, [...] THEMID-AFTERNOON, # 180 tablet, 1 Refills, Maintenance, [facility] ST[facility] 35[facility], 158, cm, 07/30/19 12:49:00 EDT, Height, 77.2, [...] 1 Refills, Soft Stop, 09/28/19 11:17:00 EDT, [facility]/pharmacy #[id number], 158, cm, 09/08/19 10:27:00 EDT, [...] 08/12/19 8:23:00 EDT, Route to Pharmacy Electronically, [facility]/pharmacy #[id number], 158, cm, 07/30/19 12:49:00 EDT, [...] Effective Dates Health Status Clinical Service Informant Lumbar spondylosis Discharge Diagnosis 11/12/19 Vital Signs Most recent to oldest [Reference Range]: 1 Height 158 cm (11/12/19 3:02 PM) Social History Social History Type Response Smoking Status Former smoker; Type: Cigarettes; Tobacco use times per day: quit smoking 30 yrs ago; entered on: 06/25/15 Sex
[2024-02-06 13:01] LABS: C Reactive Protein 1.96 mg/dL (< or = 0.50)
[2024-02-06 13:24] LABS: Influenza A PCR NEGATIVE (Negative); Influenza B PCR NEGATIVE (Negative); Resp Syncy Virus RNA Qual PCR NEGATIVE (Negative); SARS COV2 PCR INHOUSE NEGATIVE (Negative)
[2024-02-06 13:28] LABS: Erythrocyte Sedimentation Rate 6 MM/HR (0-20)
[2024-02-06 14:00] VITALS: BP 111/58; PULSE 79; RESP 18; TEMP 36.8; O2SAT 97
[2024-02-06] MEDS: predniSONE 20 MG TABLET 40 MG PO (16:27)
[2024-02-06] MEDS: cefuroxime axetiL 500 MG TABLET PO (16:27)
[2024-02-06] MEDS: oxyCODONE HCl Immed Release 5 MG TABLET PO (16:27)
--- NOTE | 2024-02-06 16:42 | MHC.EDTECH ---
did patients vitals patient ask for food brought her shant foster and drink
== END 2024-02-06 17:11 | disposition home or self-care (01) ==
PROVIDERS: Registered Nurse Emergency; Emergency Provider Emergency Medicine; PCP Family Medicine
DX: R60.0 Localized edema (principal); M25.572 Pain in left ankle and joints of left foot; M10.072 Idiopathic gout, left ankle and foot; Z03.818 Encounter for observation for suspected exposure to other biological agents ruled out; Z79.899 Other long term (current) drug therapy
CPT/HCPCS: 0241U; 36415; 73610; 80053; 82550; 85025; 85610; 85652; 86140; 93971; 99284

== ENCOUNTER 2024-02-18 14:35 | Outpatient (REF) | payer MEDICARE, SELFPAY ==
[2024-02-18 18:03] LABS: Rheumatoid Factor < 13.0 IU/mL (<15.0)
[2024-02-18 18:31] LABS: TSH reflex Free T4 1.38 uIU/mL (0.32-4.0)
[2024-02-18 18:46] LABS: Erythrocyte Sedimentation Rate 7 MM/HR (0-20)
[2024-02-20 01:28] LABS: Lyme Abs Screen <0.90 index
== END 2024-02-18 14:36 | disposition home or self-care (01) ==
LOC: HO.CHCLDS 14:35
PROVIDERS: Visit Provider Pediatrics
DX: M54.6 Pain in thoracic spine (principal); M25.50 Pain in unspecified joint
CPT/HCPCS: 36415; 84443; 85652; 86431; 86617; 86618

== ENCOUNTER 2024-03-24 08:21 | Outpatient (REF) | payer MEDICARE, SELFPAY ==
--- NOTE | ~2024-03-24 | MM_ITS ---
EXAMINATION: BONE DENSITOMETRY CLINICAL INDICATION: Postmenopausal. Back and hip pain, high risk for osteoporosis. COMPARISON: Baseline BD dated 09/16/2014. TECHNIQUE: Using a Alekto DXA System (software version: 13.1) manufactured by [employer], dual-energy x-ray absorptiometry was performed of the lumbar spine and left hip. The images are of good technical quality. Summary results are attached. FINDINGS: LEFT FEMUR, NECK: Current: BMD 0.770 g/cm2, Z-score 0.2, T-score -1.9, osteopenia. Baseline: BMD 0.860 g/cm2. LEFT FEMUR, TOTAL: Current: BMD 0.735 g/cm2, Z-score -0.2, T-score -2.2, osteopenia, 16.3% decrease from baseline (<5% change is not significant). Baseline: BMD 0.878 g/cm2. AP SPINE L1-L4: Current: BMD 0.881 g/cm2, Z-score -0.5, T-score -2.5, osteoporosis, 9.7% decrease from baseline (<5% change is not significant). Baseline: BMD 0.976 g/cm2. IDENTIFIED RISK FACTORS: Early menopause, history of fracture (adult), hysterectomy, rheumatoid arthritis, secondary osteoporosis. HISTORY OF FRACTURE: Elbow. MEDICATIONS: Calcium, vitamin D. MM/XR DEXA axial skeleton IMPRESSION: 1. DIAGNOSIS: Osteoporosis based on the lowest T-score value of -2.5 in the lumbar spine applying World Health Organization criteria. 2. 10-YEAR FRACTURE RISK PREDICTION, FRAX: According to the guidelines, FRAX calculation should only be performed on patients in the osteopenia bone density category. Therefore, FRAX was not performed on this patient. 3. Treatment Recommendations: NOF guidelines recommend consideration for treatment in postmenopausal women and men age 50 and older presenting with the following: -A hip or vertebral (clinical or morphometric) fracture. -T-score less than or equal to -2.5 at the femoral neck or spine after appropriate evaluation to exclude secondary causes. -Low bone mass at the hip or spine and a 10-year fracture probability by FRAX of greater than or equal to 3% for hip fracture or greater than or equal to 20% for major osteoporotic fracture based on the [place] adapted WHO algorithm. 4. Other Recommendations: All treatment decisions require clinical judgment and consideration of individual patient factors, including patient preferences, comorbidities, previous drug use, risk factors not captured in the FRAX model (e.g. frailty, falls, vitamin D deficiency, increased bone turnover, interval significant decline in bone density) and possible under or overestimation of fracture risk by FRAX. Additional medical evaluation for secondary cause of low bone mineral density may be appropriate. FUTURE SCAN RECOMMENDATION: People with diagnosed cases of osteoporosis or at high risk for fracture should have regular bone mineral density tests. For patients eligible for Medicare, routine testing is allowed once every 2 years. The testing frequency can be increased to one year for patients who have rapidly progressing disease, those who are receiving or discontinuing medical therapy to restore bone mass, or have additional risk factors. Electronically signed by: Bennett Toledo MD 03/30/2024 08:12 PM JOSIAH BARCLAY
== END 2024-03-24 08:22 | disposition home or self-care (01) ==
LOC: HO.MAMMO 08:21
PROVIDERS: PCP Family Medicine; Visit Provider Pediatrics
DX: Z78.0 Asymptomatic menopausal state (principal); M54.6 Pain in thoracic spine; M85.80 Other specified disorders of bone density and structure, unspecified site
CPT/HCPCS: 77080

== ENCOUNTER 2024-04-21 09:32 | Outpatient (REF) | payer MEDICARE, SELFPAY ==
--- OUTSIDE RECORDS SUMMARY | 2024-04-21 09:34 | XMS_ITS | Continuity of Care Document ---
Author Organization [facility] Adult Address [address] [place] [address]- Care Team Providers Care Airline Pilot Name Role Phone Not on Staff, PCP Primary Care Physician Unavail able Encounter [facility] Date(s): 02/25/24 - 03/26/24 [facility] Adult [address] [place] [phone]- Attending Physician: Miles Olea Admitting Physician: Miles Olea Referring Physician: Miles Olea Encounter Type: Triage Allergies, Adverse Reactions, Alerts Substance Criticality Severity Reaction Reaction Severity Status morphine 1 Unable to assess criticality Persistent Moderate Active penicillins Active 1nausea vomiting Immunizations Given and Recorded Vaccine Date Status Refusal Reason RSV vaccine, preF A-preF B, recombinant 01/21/24 R ecorded SARS-CoV-2(COVID-19)mRNA-LNP vac(opz999) 12/27/23 Recorded SARS-CoV-2(COVID-19)mRNA-LNP vac([id number]) 04/17/23 Recorded influenza virus vaccine, inactivated 12/24/23 Mango rded influenza virus vaccine, inactivated 12/27/22 Mango rded [...] Mango rded influenza virus vaccine, inactivated 01/28/12 Manog rded influenza virus vaccine, inactivated 6 01/24/12 Gi shakira tetanus/diphtheria/pertussis, acel(Tdap) 06/06/23 Recorded tetanus/diphtheria/pertussis, acel(Tdap) 7 10/22/11 Given tetanus/diphtheria/pertussis, acel(Tdap) 04/29/11 Recorded tetanus/diphtheria/pertussis, acel(Tdap) 8 09/29/07 Given [id number] 12y+ bivalent booster vax 03/02/22 Recorded SARS-CoV-2 (COVID-19) mRNA BNT-162b2 vac 03/30/21 Recorded SARS-CoV-2 (COVID-19) mRNA BNT-162b2 vac 9 08/20/20 Recorded SARS-CoV-2 (COVID-19) mRNA BNT-162b2 vac 07/30/20 Recorded Influenza Virus Vaccine (oldterm) 01/02/20 Recorde d Influenza Virus Vaccine (oldterm) 12/12/18 Recorde d pneumococcal 13-valent vaccine 07/22/15 Given pneumococcal 23-valent vaccine 10 01/29/14 Given influenza virus vaccine, live 11 01/28/14 Given Zoster Vaccine Live 06/17/13 Recorded Zostavax (oldterm) 12 06/16/13 Given 1Result Comment: [facility] [id number] 2Location History: pharmacy 3[facility] Note: [facility] 5Admin Note: immun records 6Admin Note: immun records 7Admin Note: immun records 8Admin Note: immun records [facility] 10Admin Note: immun records 11Admin Note: immun records 12Admin Note: immun records Medications Aspirin Low Dose 81 mg oral delayed release tablet 1 tablet, By Mouth, Daily, # 90 tablet, 1 Refills, Maintenance, 04/26/23 6:56:00 AM EST, [facility] STORE [id number], 156.5, cm, 02/18/23 10:06:00 EDT, Height, 77, kg, 02/04/23 0:27:00 EDT, Dry Weight Start Date: 04/26/23 Status: Ordered Quantity: 90.0 Unit: tablet Repeat number: 1 baclofen 10 mg oral tablet 1, tablet, By Mouth, Daily at bedtime, # 90 tablet, Refills 1, Tot. Refills 1, Maintenance, 02/18/23 10:44:00 AM EDT, Route to Pharmacy Electronically, [facility]/pharmacy #1972, 156.5, cm, 02/18/23 10:06:00 EDT, Height, 77, kg, 02/04/23 0:27:00 EDT, Dry Weight Start Date: 02/18/23 Stop Date: 08/17/23 Status: Ordered Quantity: 90.0 Unit: tablet Repeat number: 2 BACLOFEN 10 MG TABLET BACLOFEN 10 MG TABLET, 1, tablet, By Mouth, Daily at bedtime, # 30 tablet, 1 Refills, Maintenance, 01/21/23 11:11:00 AM EDT, 158, cm, 10/10/22 9:38:00 EDT, Height, 80.8, kg, 10/04/22 20:27:00 EDT, DryWeight Start Date: 01/21/23 Status: Ordered Quantity: 30.0 Unit: tablet Repeat number: 1 BACLOFEN 10 MG TABLET BACLOFEN 10 MG TABLET, 1, tablet, By Mouth, Daily at bedtime, # 30 tablet, 1 Refills, Maintenance, 12/18/22 8:44:00 AM EDT, 158, cm, 10/10/22 9:38:00 EDT, Height, 80.8, kg, 10/04/22 20:27:00 EDT, Dry Weight Start Date: 12/18/22 Status: Ordered Quantity: 30.0 Unit: tablet Repeat number: 1 BACLOFEN 10 MG TABLET BACLOFEN 10 MG TABLET, 1, tablet, By Mouth, Daily at bedtime, # 90 tablet, 1 Refills, Maintenance, 08/20/23 8:38:00 AM EDT, 156.5, cm, 02/18/23 10:06:00 EDT, Height, 77, kg, 02/04/23 0:27:00 EDT, Dry Weight Start Date: 08/20/23 Status: Ordered Quantity: 90.0 Unit: tablet Repeat number: 1 calcium (as carbonate)-vitamin D 500 mg-400 intl units oral tablet 1 tablet, By Mouth, 2 times a day, # 180 tablet, 3 Refills, Maintenance, 10/16/22 5:51:00 PM EDT, Tablet, [facility]/pharmacy #1972, 1 tablet By Mouth 2 times a day,x90 days, 158, cm, 10/10/22 9:38:00 EDT, Height, 80.8, kg, 10/04/22 20:27:00 EDT, Dry Weight Start Date: 10/16/22 Stop Date: 10/11/23 Status: Ordered Quantity: 180.0 Unit: tablet Repeat number: 4 gabapentin 600 mg oral tablet See Instructions, TAKE 1 TABLET BY MOUTH EVERY MORNING AND 1 TABLET EVERY NIGHT AT BEDTIME, # 60 tablet, 0 Refills, Maintenance, 05/21/23 8:34:00 AM EST, [facility], 156.5, cm, 02/18/23 10:06:00 EDT, Height, 77, kg, 02/04/23 0:27:00 EDT, Dry Weight Start Date: 05/21/23 Status: Ordered Quantity: 60.0 Unit: tablet Repeat number: 1 levothyroxine 0.088 mg oral tablet See Instructions, TAKE 1 TABLET BY MOUTH EVERY DAY, # 90 tablet, 1 Refills, Maintenance, 01/04/23 7:17:00 AM EDT, [facility] STORE [facility]6046, 158, cm, 10/10/22 9:38:00 EDT, Height, 80.8, kg, 10/04/22 20:27:00 EDT, Dry Weight Start Date: 01/04/23 Status: Ordered Quantity: 90.0 Unit: tablet Repeat number: 1 meloxicam 15 mg oral tablet 1 tablet = 15 mg, By Mouth, Daily, # 30 tablet, 0 Refills, Maintenance, 02/06/23 3:50:00 PM EDT, Tablet, [facility], Partial fill upon patient request if the prescription is for a schedule IIopioid drug., 158, cm, 02/06/23 15:24:00 EDT, Height, 77, kg, 02/04/23 0:27:00 EDT, Dry Weight Start Date: 02/06/23 Stop Date: 03/06/23 Status: Ordered Quantity: 30.0 Unit: tablet Repeat number: 1 pramipexole 1 mg oral tablet 1.5 tablet, By Mouth, 3 times a day, # 135 tablet, 5 Refills, Maintenance, 09/18/22 8:41:00 AM EDT, [facility]/pharmacy #1972, 157.4, cm, 02/05/22 10:42:00 EDT, Height, 77.6, kg, 06/29/21 7:08:00 EST, Dry Weight Start Date: 09/18/22 Status: Ordered Quantity: 135.0 Unit: tablet Repeat number: 6 Protonix 40 mg oral delayed release tablet 1 tablet = 40 mg, By Mouth, Daily, # 30 tablet, 1 Refills, Maintenance, 03/13/20 9:49:00 AM EST, ECTablet, 164, cm, 03/13/20 6:58:00 EST, Height, 76.3, kg, 03/12/20 13:32:00 EST, Dry Weight Start Date: 03/13/20 Status: Ordered Quantity: 30.0 Unit: tablet Repeat number: 2 traZODone 100 mg oral tablet 1, tablet, By Mouth, Daily at bedtime, # 90 tablet, Refills 1, Tot. Refills 1, Maintenance, 03/14/23 3:20:00 PM EST, Route to Pharmacy Electronically, [facility]/pharmacy #1972, 156.5, cm, 02/18/23 10:06:00EDT, Height, 77, kg, 02/04/23 0:27:00 EDT, Dry Weight Start Date: 03/14/23 Status: Ordered Quantity: 90.0 Unit: tablet Repeat number: 2 Problem List Condition Confirmation Course Effective Dates [...] 100 in lifetime) entered on: 11/09/20 Sex Sex Representation Female (finding) Laboratory * Event Display: Laboratory Result Scanned Authored Date: Radiology * Event Display: Ultrasound Abdomen, Non-BH Authored Date: Patient Care team information Care Team Personnel Name: Angie Pope Position: [facility] Onco RN Member Role: Primary Care Nurse Name: Julissa Patel RN Position: [facility] RN Member Role: Primary Care Nurse Name: Olga Brooke RN Position: [facility] RN Member Role: Primary Care Nurse Name: Grady Ortiz Position: [facility] Outreach Member Role: Lifetime Consulting Physician Address: [address] [place] [address] Telecom: Name: Not on Staff, PCP Position: [facility] Physician (General Medicine) Member Role: PCP Care Team Related Persons Name: KELLEE BARRAGAN Name: ANUEL PARKER Name: ANUEL GU Name: KELLEE PEÑA Insurance Providers Guarantor name: HAWK KEITH Health Plan Information #: 1 Payer: MEDICARE HMO BLUE [id number] REPLC Member Number: NA Policy Number: NA Group Number: NA
--- OUTSIDE RECORDS SUMMARY | 2024-04-21 09:34 | XMS_ITS | Continuity of Care Document ---
Author Organization [facility] Adult Address [address] [place] [address]- Care Team Providers Care Tutoring Manager Name Role Phone Not on Staff, PCP Primary Care Physician Unavail able Encounter [facility] Date(s): 03/03/24 - 04/02/24 [facility] Adult [address] [place] [address]- Encounter Type: Triage Allergies, Adverse Reactions, Alerts Substance Criticality Severity Reaction Reaction Severity Status morphine 1 Unable to assess criticality Persistent Moderate Active penicillins Active 1nausea vomiting Immunizations Given and Recorded Vaccine Date Status Refusal Reason RSV vaccine, preF A-preF B, recombinant 01/21/24 R ecorded SARS-CoV-2(COVID-19)mRNA-LNP vac(qal571) 12/27/23 Recorded SARS-CoV-2(COVID-19)mRNA-LNP vac([id number]) 04/17/23 Recorded influenza virus vaccine, inactivated 12/24/23 [...] 04/29/11 Recorded tetanus/diphtheria/pertussis, acel(Tdap) 8 09/29/07 Given [id number] 12y+ bivalent booster vax 03/02/22 Recorded SARS-CoV-2 [...] Zostavax (oldterm) 12 06/16/13 Given 1Result Comment: [facility] [id number] 2Location History: pharmacy 3Location History: [facility] 4Admin Note: high dose done at [facility] 5Admin Note: immun records 6Admin Note: immun records 7Admin Note: immun records 8Admin Note: immun records 9Result Comment: [facility] 10Admin Note: immun records 11Admin Note: immun records 12Admin Note: immun records Medications Aspirin Low Dose 81 mg oral delayed release tablet 1 tablet, By Mouth, Daily, # 90 tablet, 1 Refills, Maintenance, 04/26/23 6:56:00 AM EST, [facility] ST[facility] 25144, 156.5, cm, 02/18/23 10:06:00 EDT, Height, 77, kg, 02/04/23 0:27:00 EDT, Dry Weight Start Date: 04/26/23 Status: Ordered Quantity: 90.0 Unit: tablet Repeat number: 1 baclofen 10 mg oral tablet 1, tablet, By Mouth, Daily at bedtime, # 90 tablet, Refills 1, Tot. Refills 1, Maintenance, 02/18/23 10:44:00 AM EDT, Route to Pharmacy Electronically, [facility]/pharmacy #1972, 156.5, cm, 02/18/23 10:06:00 EDT, [...] Refills, Maintenance, 10/16/22 5:51:00 PM EDT, Tablet, [facility], 1 tablet By [...] 1 Refills, Maintenance, 01/04/23 7:17:00 AM EDT, [facility], 158, cm, 10/10/22 9:38:00 EDT, Height, 80.8, [...] Maintenance, 09/18/22 8:41:00 AM EDT, [facility]/pharmacy #1972, 157.4, cm, 02/05/22 10:42:00 EDT, [...] EST, Route to Pharmacy Electronically, [facility]/pharmacy #1972, 156.5, cm, 02/18/23 10:06:00EDT, Height, 77, [...] on: 11/09/20 Sex Sex Representation Female (finding) Patient Care team information Care Team Personnel Name: Lyle Popeia Position: [facility] Onco RN Member Role: Primary Care Nurse Name: Julissa Patel RN Position: [facility] RN Member Role: Primary Care Nurse Name: Olga Brooke RN Position: [facility] RN Member Role: Primary Care Nurse Name: Grady Ortiz Position: [facility] Outreach Member Role: Lifetime Consulting Physician Address: [address] [place] [address] Telecom: Name: Not on Staff, PCP Position: [facility] Physician (General Medicine) Member Role: PCP Care Team Related Persons Name: KELLEE BARRAGAN Name: ANUEL PARKER Name: ANUEL GU Name: KELLEE PEÑA Insurance Providers Guarantor name: HAWKRANJITH PARKER [facility] Plan Information #: 1 Payer: MEDICARE HMO BLUE [id number] REPLC Member Number: NA Policy Number: NA Group Number: NA
--- OUTSIDE RECORDS SUMMARY | 2024-04-21 09:34 | XMS_ITS | Data Portability ---
Author Organization [place] - [facility], Allergy Address [address] [address] Care Team Providers Care Superintendent [employer] Name Role Phone [facility] Primary Care Provider Assessment No assessment recorded. Plan of Treatment Reminders Order Date Submit Date Provider Last Modified By Organization Details Last Modified Time Details Appointments None recorded. Lab None recorded. Referral None recorded. Procedures None recorded. Surgeries None recorded. Imaging None recorded. Medication Orders ipratropium bromide 21 mcg (0.03 %) nasal spray 2023 024 [facility]/Pharmacy #1972, [address] [facility], [place], [address], 09:11:23 Patient TargetsNo targets recorded. Patient InstructionsNo instructions recorded. Reason for Referral None Reported. Problems Name Problem SNOMED Code Status Onset Date Resolution Date Notes Provider Name and Address Organization Details Recorded Time Vasomotor rhinitis 9183525 Active 2021 Vasomotor rhinitis; Note: Date Diagnosed: 07/06/2021 8:58 AM (J30.0) Not Available [facility] 4 02:56:49 Hypertrop hy of nasal turbinate s 06974369 Active 2022 Hypertroph y of nasal turbinates ; Note: Date Diagnosed: 03/15/2023 5:09 PM (J34.3) Not Available [facility] 4 02:56:46 Allergic rhinitis 76267490 Active 2022 Other allergic rhinitis; Note: Date Diagnosed: 03/15/2023 5:09 PM (J30.89) Not Available [facility] 4 02:56:48 Nasal congestio n 98435312 Active 2023 TREASURE ROMAN MD [address] [facility],[place] [address], [facility] [place], [address] , [facility] 4 09:05:55 Anterior rhinorrhe a 279749786 Active 2023 TREASURE ROMAN MD [address] [place] [address],[place] [address], [facility] [place], [phone] , [facility] 4 09:06:59 Problem Notes None recorded. Procedures Surgical History Date Name Laterality Status Provider Name and Address Organization Details Recorded Time 11/11/2023 NasalEndos copy_DP completed TREASURE ROMAN MD [address] [place] [address],[place] [address], [place], [phone], [facility] 11/11/2023 09:14:27 Imaging Results None recorded. Procedure Notes None recorded. Medical Equipment None Reported. Allergies Allergen ID Allergen Name Allergen Category Reaction Reaction Severity Criticality Documentation Date Start Date Code Code System Note Provider Name and Address Organization Details Recorded Time 189901 Medicinal product containin g penicilli n and acting as antibacte rial agent (product) medicatio n other Not available Not available 09/10/2023 43902 05 SNOMED React ion: other react ion, Unkno wn; Not Available [facility] 4 01:12:17 846617 morphine medicatio n other Not available Not available 09/10/2023 7052 RxNorm React ion: other react ion, Unkno wn; Not Available [facility] 4 01:12:18 Medications Name Sig Start Date Stop Date Status Note LastModified by Organization Details LastModified Time pramipexol e 1 mg tablet 2021 active Medicatio n ID: [id number] Br and Name: pramipexo genoveva Send Method: E-Prescri bed Subs Allowed: subs OK Medica tionGener icName: pramipexo le Not Available Not Available Not Available prednisone 10 mg tablet TAKE FIVE TABLETS ONCE DAILY FOR 2 DAYS, THEN FOUR TABLETS DAILY FOR 2 DAYS THEN THREE TABLETS DAILY FOR 2 DAYS THEN TWO TABLETS DAILY FOR 2 DAYS THEN ONE TABLET DAILY FOR 2 DAYS active Not Available Not Available No t Available gabapentin 600 mg tablet TAKE ONE TABLET TWICE DAILY active Not Available Not Available No t Available meloxicam 15 mg tablet TAKE 1 TABLET BY MOUTH EVERY DAY active Not Available Not Available No t Available ondansetro n HCl 4 mg tablet TAKE 1 TABLET BY MOUTH EVERY 8 HOURS NEEDED FOR NAUSEA FOR 5 DAYS active Not Available Not Available No t Available prednisone 20 mg tablet TAKE 3 TABLETS BY MOUTH EVERY DAY FOR 3 DAYS active Not Available Not Available No t Available naproxen 250 mg tablet TAKE ONE TABLET BY MOUTH THREE TIMES DAILY active Not Available Not Available No t Available allopurino l 100 mg tablet TAKE 1 TABLET BY MOUTH EVERY DAY active Not Available Not Available No t Available aspirin 81 mg tablet,del ayed release TAKE 1 TABLET BY MOUTH EVERY DAY active Not Available Not Available No t Available tramadol 50 mg tablet TAKE 1 TABLET BY MOUTH EVERY 4 HOURS NEEDED FOR PAIN active Not Available Not Available No t Available levothyrox ine 88 mcg tablet TAKE ONE TABLET EVERY MORNING active Not Available Not Available No t Available trazodone 100 mg tablet TAKE 1 TABLET BY MOUTH EVERYDAY AT BEDTIME active Not Available Not Available No t Available baclofen 10 mg tablet TAKE ONE TABLET AT BEDTIME active Not Available Not Available No t Available azelastine 137 mcg (0.1 %) nasal spray USE 2 SPRAYS NASALLY TWICE A DAY DIRECTED active Not Available Not Available No t Available ipratropiu m bromide 21 mcg (0.03 %) nasal spray USE 2 SPRAY THREE TIMES A DAY DIRECTED active Not Available Not Available No t Available Oyster Shell Calcium-Vi tamin D3 500 mg-10 mcg (400 unit) tablet TAKE ONE TABLET TWICE DAILY active Not Available Not Available No t Available Wegovy 1.7 mg/0.75 mL subcutaneo us pen injector active Not Available Not Available Not Available Wegovy 1 mg/0.5 mL subcutaneo us pen injector INJECT 1 MG SUBCUTANE OUSLY ONCE PER WEEK active Not Available Not Available No t Available Wegovy 0.25 mg/0.5 mL subcutaneo us pen injector INJECT 0.25 MG'S SUBCUTANE OUSLY ONCE PER WEEK active Not Available Not Available No t Available Wegovy 0.5 mg/0.5 mL subcutaneo us pen injector INJECT 0.5 MG SUBCUTANE OUSLY ONCE A WEEK active Not Available Not Available No t Available Vitals Date Recorded Body height Body mass index (BMI) Body weight Provider Name and Address Organization Details Last Updated DateTime 11/11/2023 157.48 cm 28.3 kg/m2 99121.82 g Nathaniel Aldanavaishali [place] - [facility] 11/11/2023 08:51:32 Social History None recorded. Functional Status None recorded. Mental Status None recorded. Family History Nothing Reported. Medical History No medical history recorded. Gynecological HistoryNo gynecological history recorded. Obstetrics History GPAL:G 0 P 0 0 0 0 Past Encounters Encounter ID Performer Location Encounter Start Date Encounter Closed Date Diagnosis/Indication Diagnosis SNOMED-CT Code Diagnosis ICD10 Code [id number] TREASURE ROMAN MD [facility] [address] [address] 11/11/2023 08:43:17 11/11/2023 09:24:33 Nasal congestion 03900266 R09.81 Anterior rhinorrhea 2772 42745 J34.89 Vasomotor rhinitis 63559 03 J30.0 Health Concerns Section Related Observation LastModified by Organization Detai ls LastModified Time None Recorded Concern Status LastModified by Organization Details LastModified Time None Recorded Advance Directives Directive None Recorded Payers Encounter Date Sequence Insurance Name Policy Number Policy Clark Covered Member ID Clark Member ID Guarantor Name 11/11/2023 1 [facility] MEDICARE H[place] BLUE (MEDICARE REPLACEMENT HMO) [id number] Rut Morales [id number] Rut Morales Notes Date Note Type Note Provider Name and Address Organization Details Recorded Time 11/11/2023 text/html She reports nasal drip. She reports nasal drip that comes out her nose. After a meal she sneezes often and blows her nose. It does not change with the seasons. She tried a nasal spray without benefit. No hx of head trauma. No hx of sinus surgery. No recent hx of abx for sinusitis. TREASURE ROMAN MD [address] [place] [address], [phone], [place] - [facility] 11/11/2023 09:14:43 OBGyn Episode No OBEpisode recorded.
--- OUTSIDE RECORDS SUMMARY | 2024-04-21 09:34 | XMS_ITS | Continuity of Care Document ---
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 Wagon Driver Name Role Phone Not on Staff, PCP Primary Care Physician Unavail able Encounter [facility] ACCT R [id number] Date(s): 11/27/23 - 03/26/24 [facility] [address] [place] [phone]- Attending Physician: Annette Castillo NP Encounter Type: Pre Office Visit Allergies, Adverse Reactions, Alerts Substance Criticality Severity Reaction Reaction Severity Status morphine 1 Unable to assess criticality Persistent Moderate Active penicillins Active 1nausea vomiting Immunizations Given and Recorded Vaccine Date Status Refusal Reason RSV vaccine, preF A-preF B, recombinant 01/21/24 R ecorded SARS-CoV-2(COVID-19)mRNA-LNP vac([id number]) 12/27/23 Recorded SARS-CoV-2(COVID-19)mRNA-LNP vac([id number]) 04/17/23 Recorded influenza virus vaccine, inactivated 12/24/23 [...] 04/29/11 Recorded tetanus/diphtheria/pertussis, acel(Tdap) 8 09/29/07 Given [id number] 12y+ bivalent booster vax 03/02/22 Recorded SARS-CoV-2 [...] Zostavax (oldterm) 12 06/16/13 Given 1Result Comment: [facility] [id number] 2Location History: pharmacy 3Location History: [facility] 4Admin Note: high dose done at [facility] 5Admin Note: immun records 6Admin Note: immun records 7Admin Note: immun records 8Admin Note: immun records 9Result Comment: [facility] 10Admin Note: immun records 11Admin Note: immun records 12Admin Note: immun records Medications Aspirin Low Dose 81 mg oral delayed release tablet 1 tablet, By Mouth, Daily, # 90 tablet, 1 Refills, Maintenance, 04/26/23 6:56:00 AM EST, [id number], 156.5, cm, 02/18/23 10:06:00 EDT, Height, 77, kg, 02/04/23 0:27:00 EDT, Dry Weight Start Date: 04/26/23 Status: Ordered Quantity: 90.0 Unit: tablet Repeat number: 1 baclofen 10 mg oral tablet 1, tablet, By Mouth, Daily at bedtime, # 90 tablet, Refills 1, Tot. Refills 1, Maintenance, 02/18/23 10:44:00 AM EDT, [facility] Refills, Maintenance, 10/16/22 5:51:00 PM EDT, Tablet, [facility]/pharmacy #[id number], [...] 1 Refills, Maintenance, 01/04/23 7:17:00 AM EDT, [facility] 18837, 158, cm, 10/10/22 9:38:00 EDT, Height, 80.8, [...] 5 Refills, Maintenance, 09/18/22 8:41:00 AM EDT, [facility]/pharmacy #1972, 157.4, [...] 3:20:00 PM EST, Route to Pharmacy Electronically, [facility]/pharmacy #1972, 156.5, cm, 02/18/23 10:06:00EDT, Height, [...] in descending colon by abdominal CT 2Dexa 2015 osteopenia 3last dexa 2013 Social History Social History Type Response Smoking Status Never (less than 100 in lifetime) entered on: 11/09/20 Sex Sex Representation Female (finding) Patient Care team information Care Team Personnel Name: Angie Pope Position: [facility] Onco RN Member Role: Primary Care Nurse Name: Julissa Patel RN Position: [facility] RN Member Role: Primary Care Nurse Name: Olga Brooke RN Position: [facility] RN Member Role: Primary Care Nurse Name: Grady Ortiz Position: [facility] Outreach Member Role: Lifetime Consulting Physician Address: [address] [place] [address], [address] Telecom: Name: Not on Staff, PCP Position: [facility] Physician (General Medicine) Member Role: PCP Care Team Related Persons Name: KELLEE BARRAGAN Name: ANUEL PARKER Name: NAUEL GU Name: KELLEE PEÑA Insurance Providers Guarantor name: HAWK PARKER Health Plan Information #: 1 Payer: MEDICARE HMO BLUE [facility] Member Number: [id number] Policy Number: NA Group Number: [id number] Health Plan Information #: 2 Payer: MEDICARE [facility] [employer] [facility] [employer] Member Number: [id number] Policy Number: NA Group Number: [id number]
--- OUTSIDE RECORDS SUMMARY | 2024-04-21 09:34 | XMS_ITS | Data Portability ---
Author Organization [facility], PAIN OFFICE Address [address] [facility],[address] [address] Care Team Providers Care Manager Care Management Name Role Phone BROOKE LUTZ Referring Provider [facility] Primary Care Provider Assessment Encounter Date Assessment Date Assessment LastModified by Organization Details LastModified Time 04/07/2015 04/07/2015 Rut Morales is a 64??old woman with complaints of low back pain radiating into both lower extremities with numbness in left foot.?? On exam, she has pain on flexion and a positive straight leg raising test on the right. I recommend a MRI lumbar spine to elucidate the cause of her pain.?? Due to insurance issues, I request the PCP to consider MRI Lumbar spine. I have encouraged to continue physical therapy and discussed the importance of core strengthening. [email or web address] Not available 04/13/2015 15:55:08 Plan of Treatment Reminders Order Date Submit Date Provider Last Modified By Organization Details Last Modified Time Details Appointments None record ed. Lab None record ed. Referral None record ed. Procedures None record ed. Surgeries None record ed. Imaging None record ed. Medication Orders None record ed. Patient TargetsNo targets recorded. Patient Instructions Encounter Date Encounter Id Patient Instructions Last Modified By Organization Details Last Modified Time 04/07/2015 [id number] She was advised against bed rest lasting longer than four days and to continue activities as tolerated. [email or web address] Not available 04/07/2015 15:42:42 Reason for Referral None Reported. Results Created Date Observation Date Name Description Value Unit Range Abnormal Flag Note LastModifiedBy Organization Detail LastModifiedTime 06/16/19 16 MRI, lumba r spine No observ ation record ed. [facility] [address], [place], [address], 07/13/2015 13:43:24 Result Notes None recorded. Problems Name Problem SNOMED Code Status Onset Date Resolution Date Notes Provider Name and Address Organization Details Recorded Time Lumbosacral radiculitis 69047462 Active Mariano mishra MD [address] [facility] , [address], [place], [address], [place] [facility] 5 15:55:08 Spinal stenosis of lumbar region 80584433 Active Mariano mishra MD [address] , [address], [place], [address], [place] [facility] 5 15:55:08 Displacement of lumbar intervertebral disc without myelopathy 05923475 Active Mariano mishra MD [address] , [address], [place], [address], [place] [facility] 5 15:55:08 Lumbosacral spondylosis without myelopathy 36450298 Active Mariano mishra MD [address] [facility] , [address], [place], [address], [place] [facility] 5 15:55:08 Problem Notes None recorded. Procedures Surgical History Date Name Laterality Status Provider Name and Address Organization Details Recorded Time Thyroid Surgery completed Betty Corcoran [place] [facility] 04/07/2015 14:33:55 Gastric Bypass completed Betty Norris A - [facility] 04/07/2015 14:33:55 Cholecystectomy completed Betty Corcoran [place] [facility] 04/07/2015 14:33:55 Breast Surgery completed Betty Norris A - [facility] 04/07/2015 14:33:55 Hysterectomy completed Betty Corcoran [place] - [facility] 04/07/2015 14:33:55 Caesarean Section completed Betty wolfe [place] - [facility] 04/07/2015 14:33:55 Imaging Results Imaging Date Name Status LastModified by Organiz ation Details LastModified Time 06/16/2015 MRI, lumbar spine completed [facility] [address], [place], [address], 07/13/2015 13:43:24 Procedure Notes None recorded. Medical Equipment None Reported. Allergies Allergen ID Allergen Name Allergen Category Reaction Reaction Severity Criticality Documentation Date Start Date Code Code System Note Provider Name and Address Organization Details Recorded Time 94727 Medicinal product containin g penicilli n and acting as antibacte rial agent (product) medicatio n Not available Not available Not available 04/07/2015 45040 05 SNOMED Betty Corcoran null, [place] - [facility] 5 14:33:55 Medications Name Sig Start Date Stop Date Status Note LastModified by Organization Details LastModified Time gabapentin 800 mg tablet Take 1 tablet 3 times a day by oral route. active Not Available Not Available No t Available Vitals Date Recorded Body weight Oxygen saturation Oxygen saturation in Arterial blood by Pulse oximetry Body height Body mass index (BMI) Heart rate Systolic blood pressure Diastolic blood pressure Provider Name and Address Organization Details Last Updated DateTime 5 [address]4713.7 029 g 96 % 96 % 157.48 cm 31.1 kg/m2 74 /min 111 mm[Hg] 66 mm[Hg] Betty Corcoran [place] [facility] 5 14:22:21 Social History Question Answer Notes LastModified by Organizat ion Details LastModified Time Tobacco Smoking Status Former Smoker Quit x 30 years [facility] 02/12/2020 03:16:11 What Is Your Level Of Alcohol Consumption? None [id number] Information not available 02/12/2020 Are You Currently Employed? No [id number] Information not available 02/12/2020 Which Illicit Or Recreational Drugs Have You Used? No [id number] Information not available 02/12/2020 Education 12 Information no t available 04/07/2015 Live Alone Or With Others? With Others Information not available 04/07/2015 Marital Status Informatio n not available 04/07/2015 How Many Years Have You Smoked Tobacco? 15 [id number] Information not available 02/12/2020 Sex: Unknown Functional Status None recorded. Mental Status None recorded. Family History Relationship Description Onset Age of this Age Resolved Age Notes LastModified by Organization Details LastModified Time Mother Heart disease [email or web address] Not available 03/29 15:41:13 Father Heart disease [email or web address] Not available 03/29 15:41:13 Medical History Condition Response Headache Y Arthritis Y Migrane Y GERD/Reflux Y Hypothyroidism Y Depression Y Gynecological HistoryNo gynecological history recorded. Obstetrics History GPAL:G 0 P 0 0 0 0 Past Encounters Encounter ID Performer Location Encounter Start Date Encounter Closed Date Diagnosis/Indication Diagnosis SNOMED-CT Code Diagnosis ICD10 Code [id number] Mariano Pratt MD PAIN OFFICE [address] [facility] [address] [facility] [place] [id number] 04/07/2015 13:31:37 04/13/2015 15:56:09 Displacement of lumbar intervertebral disc without myelopathy 54950109 M51.26 Lumbosacra l radiculitis 54750022 M54.17 Lumbosacra l spondylosis without myelopathy 35642882 M47.817 Spinal parth nosis of lumbar region 58445635 M48.06 Health Concerns Section Related Observation LastModified by Organization Detai ls LastModified Time None Recorded Concern Status LastModified by Organization Details LastModified Time None Recorded Advance Directives Directive None Recorded Payers Encounter Date Sequence Insurance Name Policy Number Policy Clark Covered Member ID Clark Member ID Guarantor Name 04/07/2015 1 MEDICARE B-[place]: [employer] uRt Morales [id number] A Rut Morales Notes Date Note Type Note Provider Name and Address Organization Details Recorded Time 04/07/2015 text/html Pain Management L-spineReported bypatient.Location :Rut Morales is a 64 year old woman with complaints of low back pain radiating into both lower extremities. She states she was diagnosed with spinal stenosis about 10 years ago. She has been having increasing pain recently with numbness in her left foot. Quality:throbbing; tightness;numbess; burning;aching;barrel scraper mping;sharp;tingli ng; She describes the pain in her low back as an aching pain which radiates into both lower extremities with numbness in left foot. The pain in her legs is burning in nature. Severity:current pain level 4/10; worst pain 9/10;worsening;int erference with sleep; She awakens multiple times at night due to pain. Duration:constant Onset/Timing:gradu al onset; chronic Context:cannot identify Alleviating Factors:rest Aggravating Factors:standing; walking Associated Symptoms:no weakness; no bladder compromise; no bowel compromise;numbnes s Radiation:bilatera l LE; Numbness is present in left foot Work Related:no Prior Imaging:MRI; MRI Lumbar spine done in 2001 Prior EMG:none Previous Surgerynone Previous Injections:none Previous PT:did not help Previous care worker:did not help Mariano Pratt MD [address] [facility] , [address], [place], [address], [facility] - Pain Management 04/14/2015 14:48:37 OBGyn Episode No OBEpisode recorded.
== END 2024-04-21 09:33 | disposition home or self-care (01) ==
LOC: HO.CHCLDS 09:32
PROVIDERS: Visit Provider Family Medicine
DX: L65.9 Nonscarring hair loss, unspecified (principal)
CPT/HCPCS: 36415; 82306

== ENCOUNTER 2024-07-27 08:40 | Outpatient (REF) | payer MEDICARE, SELFPAY ==
--- NOTE | ~2024-07-27 | XR_ITS ---
EXAMINATION: XR CHEST 2 VIEWS HISTORY: Lower limb edema COMPARISON: There are no prior studies for comparison. FINDINGS: PA and lateral views of the chest are submitted. The lungs are expanded and clear. There is no pleural effusion, pneumothorax, or pulmonary vascular congestion. The heart is normal in size. The aorta is calcified. There is degenerative disc disease of the spine. There are surgical clips in the right axilla, all left lateral chest wall, and right upper quadrant of the abdomen. XR/XR chest 2V IMPRESSION: Clear lungs. Electronically signed by: Ignacio Peter MD 07/27/2024 11:36 AM EDT
[2024-07-27 09:13] LABS: MANUAL DIFF FLAG NO
[2024-07-27 09:49] LABS: Appearance Urine Clear; Color Urine Dark Yellow; Glucose Urine UA Negative (Negative); Leukocyte Esterase Urine Small (1+) (Negative); Nitrite Urine Negative (Negative); PH 5.5 (5.0-9.0); Specific Gravity - Urine 1.025 (1.005-1.025); UMIC TRIGGER UA YES; Urine Blood Negative (Negative); Urine Ketones Trace mg/dL (Negative); Urine Protein Negative (Neg-Trace)
[2024-07-27 09:59] LABS: Basophils Absolute Auto 0.1 X10*3/uL (0.0-0.2); Basophils Percent Auto 0.8 % (0-2); Eosinophils Absolute Auto 0.2 X10*3/uL (0.0-0.4); Eosinophils Percent Auto 2.3 % (0-4); Hematocrit 42.6 % (37.0-47.0); Hemoglobin 13.6 g/dl (12.0-16.0); Imm Gran Abs Auto 0.03 X10*3/uL (0.00-0.03); Imm Gran Pct Auto 0.4 % (0.0-0.4); Lymphocytes Absolute Auto 2.1 X10*3/uL (1.2-4.9); Lymphocytes Percent Auto 27.2 % (20-40); Mean Corpuscular HGB Conc 31.9 g/dl (31.0-35.0); Mean Corpuscular Hemoglobin 29.9 pg (27.0-33.0); Mean Corpuscular Volume 93.6 fL (80.0-98.0); Mean Platelet Volume 9.7 fL (9.4-12.3); Monocytes Absolute Auto 0.6 X10*3/uL (0.1-1.2); Monocytes Percent Auto 8.4 % (2-11); Neutrophils Absolute Auto 4.6 x10*3/uL (2.0-8.3); Neutrophils Percent Auto 60.9 % (45-73); Platelet Count 328 X10*3/uL (160-400); Red Blood Count 4.55 X10*6/uL (4.20-5.50); White Blood Count 7.5 X10*3/uL (4.8-10.8)
[2024-07-27 10:00] LABS: Bacteria Urine None Seen (None Seen); Hyaline Casts Urine 0-2 /LPF (0-2); RBC Urine 0-2 /HPF (0-2); Squamous Epithelial Cell Urine 0-2 /HPF (0-2); WBC Urine 0-5 /HPF (0-5)
[2024-07-27 10:34] LABS: Creatinine Urine 160.96 mg/dL; Microalbum/Creatinine Ratio Ur 5.5 ug/mg cr (<30)
[2024-07-27 11:01] LABS: Alanine Aminotransferase 17 U/L (0-31); Albumin Level 3.8 g/dL (3.5-5.0); Alkaline Phosphatase 42 U/L (39-117); Anion Gap 9 (12-20); Aspartate Amino Transferase 28 U/L (5-31); Bilirubin Total 0.5 mg/dL (0.0-1.0); Blood Urea Nitrogen 14 mg/dL (9-16); Calcium 8.8 mg/dL (8.4-10.2); Carbon Dioxide 29 mmol/L (22-29); Chloride 109 mmol/L (96-108); Estimated Glomerular Filt Rate > 60; Glucose Random 74 mg/dL (60-115); Potassium 4.4 mmol/L (3.3-5.1); Sodium 143 mmol/L (135-145)
[2024-07-27 11:03] LABS: TSH reflex Free T4 4.55 uIU/mL (0.32-4.0)
[2024-07-27 11:12] LABS: Folate 13.9 ng/mL (> or = 4.0); Vitamin B12 261 pg/mL (200-900)
[2024-07-27 11:41] LABS: Free T4 (Free Thyroxine) 0.96 ng/dL (0.71-1.85)
[2024-07-31 15:54] LABS: Vitamin B6 3.4 ng/mL (2.1-21.7)
[2024-08-03 13:03] LABS: Vitamin B1 15 nmol/L (8-30)
== END 2024-07-27 08:41 | disposition home or self-care (01) ==
LOC: HO.CHCLDS 08:40
PROVIDERS: Visit Provider Internal Medicine
DX: R60.0 Localized edema (principal); R20.2 Paresthesia of skin
CPT/HCPCS: 36415; 71046; 80053; 81001; 82043; 82570; 82607; 82746; 84207; 84425; 84439; 84443; 85025

== ENCOUNTER → 2024-07-27 09:18 | Outpatient (BNV) | payer MEDICARE, SELFPAY | PROVIDERS: Visit Provider Radiology Diagnostic Radiology | DX: R60.0 Localized edema (principal) | CPT/HCPCS: 71046 ==

== ENCOUNTER 2024-08-19 15:44 | Outpatient (REF) | payer MEDICARE, SELFPAY ==
--- OUTSIDE RECORDS SUMMARY | 2024-08-19 18:19 | XMS_ITS | Encounter Summary ---
Author Organization [employer] Address [address] [facility] [address] [place] [address] Care Team Providers Care Shop Director Name Role Phone Chela Lynn MD Primary Care Provider [phone] Encounter Details Date Type Department Care Team (Latest Contact Info) Description 08/19/2024 Travel Social History Tobacco Use Types Packs/Day Years Used Date Smoking Tobacco: Former Cigarettes 0 04/29/2003 - 04/29/1964 Passive Smoke Exposure: Never Smokeless Tobacco: Never Alcohol Use Standard Drinks/Week Comments Never 0 (1 standard drink = 0.6 oz pur e alcohol) Depression Answer Date Recorded Patient Health Questionnaire-9 Score 2 06/06/2023 Patient Health Questionnaire-9 Score 2 06/06/2023 Last PHQ-9: Questionnaire Data Not on file 0 06/06/2023 Housing Stability Answer Date Recorded What is your housing situation today? I have dada roberson 05/28/[address] you li ve. Do you have problems with any of the following? None of the above 05/28/2023 Food Insecurity Answer Date Recorded Within the past 12 months, y ou worried that your food would run out before you got money to buy more: Never True 05/28/2023 Within the past 12 months,th e food you bought just didn't last and you didn't have enough money to get more: Never True Transportation Answer Date Recorded In the past 12 months, has l ack of transportation kept you from medical appts, meetings, work or from getting things needed for daily living? No 05/28/2023 Utilities Answer Date Recorded In the past 12 months, has t he [employer], gas, oil or water company threatened to shut off services in your home? No 05/28/2023 Depression Answer Date Recorded Patient Health Questionnaire-2 Score 2 06/06/2023 Comments Unknown Sex and Gender Information Value Date Recorded Sex Assigned at Female 02/26/2022 10:22 AM EDT Legal Sex Female 10:22 AM EDT Gender Identity Female 06/06/2023 10:16 AM EST Sexual Orientation Straight 06/06/2023 10 :16 AM EST documented as of this encounter Plan of Treatment Not on file documented as of this encounter Visit Diagnoses Not on filedocumented in this encounter Additional Health Concerns Assessment Noted Time PHQ-9 Depression Total Score: 2 06/06/19 24 10:37 AM EST documented as of this encounter Care Teams Shop Director Relationship Specialty Start Date End Date Chela Lynn MD [address] [place] [address] PCP - General Family Medicine 06/06/23 documented as of this encounter
--- OUTSIDE RECORDS SUMMARY | 2024-08-19 18:19 | XMS_ITS | Encounter Summary ---
Author Organization [employer] Address [address] [facility] [address] [place] [address] Care Team Providers Care Deputy Sheriff Civil Division Name Role Phone Chela Lynn MD Primary Care Provider Reason for Visit * Reason Onset Date Comments Nurse Triage 07/20/2024 Encounter Details Date Type Department Care Team ([facility] st Contact Info) Description 07/20/[address] [facility] [address] [place] [address] Chela Lynn MD [address] [place] [address] Nurse Triage Social History Tobacco Use Types Packs/Day Years [...] your housing situation today? I have dada karol 05/28/[address] you li [...] the past 12 months, has t he electric, gas, oil or water company threatened to [...] AM EST documented as of this encounter Miscellaneous Notes * Telephone Encounter - Es Young RN - 07/20/2024 11:07 AM EDT Triage call Pt reports bilateral ankle/foot edema, pain and numbness. Pt reports left foot is more effected right slightly swollen. Pt reports waking up yesterday morning with left ankle noticeably increased in swelling, toes are swollen and numbness of toes present. Pt reports this has been occurring for weeks now and was present in last OV 07/07/24 but, chose not to say anything about this condition at appointment. Pt is having difficulty ambulating and is only able to wear certain shoes. Pt reports this swelling is much less today than it has been. Pt also reports that right foot drops with ambulatiion. Pt is advised to keep bilateral legs/feet elevated as much as possible and agrees . Pt is drinking adequate liquids. ASK apt with Dr. De Luna 07/24/24 @ 345pm. Unable to verify insurance due to computer error. Protocol Used: Leg Swelling and Edema (Adult) Protocol-Based Disposition: See in Office or Video Visit within 3 Days Video visit not offered Positive Triage Question: * Mild swelling of both ankles (i.e., pedal edema) AND new-onset or getting worse * All higher-acuity triage questions were negative Care Advice Discussed: * Reasons To Call Back - Swelling becomes worse - Swelling becomes red or painful to the touch - Calf pain occurs and becomes constant - You become worse * Telephone Encounter - Wolfgang Donell - 07/20/2024 10:38 AM EDT Symptoms: Foot or Ankle Swelling, Numbness Outcome: Schedule an urgent appointment (within 1 hour) or talk to a nurse or provider soon Reason: Trouble walking The caller accepted this outcome. Contact pt at [phone] documented in this encounter Plan of Treatment Not on file documented as of this encounter Visit Diagnoses Not on filedocumented in this encounter Additional Health Concerns Assessment Noted Time PHQ-9 Depression Total Score: 2 06/06/19 10:37 AM EST documented as of this encounter Care Teams Deputy Sheriff Civil Division Relationship Specialty Start Date End Date Chela Lynn MD [address] [place] [address] PCP - General Family Medicine 06/06/23 documented as of this encounter
--- OUTSIDE RECORDS SUMMARY | 2024-08-19 18:19 | XMS_ITS | Encounter Summary ---
Author Organization [employer] Address [address] [facility] [address] [place] [address] Care Team Providers Care Drop Wire Builder Name Role Phone Chela Lynn MD Primary Care Provider Reason for Visit * Reason Onset Date Comments Med Refill 04/01/2024 Encounter Details Date Type Department Care Team ([facility] st Contact Info) Description 04/01/2024 Telephone [facility] [address] [place] [address] Chela Lynn MD [address] [place] [address] Med Refill Social History Tobacco Use Types Packs/Day Years [...] encounter Miscellaneous Notes * Telephone Encounter - Camila Chávez LPN - 04/01/2024 3:54 PM EST Medication sent to [facility] on 02/03/24 #180 with 1 refill. * Telephone Encounter - Lucy Anderson - 04/01/2024 3:52 PM EST TC from pt requesting medication refill. Medications needing refill : Oyster Shell Calcium + D3 500-10 MG-MCG tablet To be sent to: [facility] documented in this encounter Plan of Treatment Not on file documented as of this encounter Visit Diagnoses Not on filedocumented in this encounter Additional Health Concerns Assessment Noted Time PHQ-9 Depression Total Score: 2 06/06/19 10:37 AM EST documented as of this encounter Care Teams Drop Wire Builder Relationship Specialty Start Date End Date Chela Lynn MD [address] [place] [address] PCP - General Family Medicine 06/06/23 documented as of this encounter
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
--- OUTSIDE RECORDS SUMMARY | 2024-08-19 18:19 | XMS_ITS | Encounter Summary ---
Author Organization [employer] Address [address] [facility] [address] [place] [address] Care Team Providers Care Apartment Leasing Specialist Name Role Phone Chela Lynn MD Primary Care Provider Encounter Details Date Type Department Care Team ([facility] st Contact Info) Description 08/04/2024 Orders Only [facility] [address] [place], [place] [phone] Audelia De Luna MD [address] [place] [address] Acquired hypothyroidism (Primary Dx) Social History Tobacco Use Types [...] your housing situation today? I have dada sing 05/28/[address] you li [...] as of this encounter Visit Diagnoses Diagnosis Acquired hypothyroidism- Primary Unspecified hypothyroidism documented in this encounter Additional Health Concerns Assessment Noted Time PHQ-9 Depression Total Score: 2 06/06/19 10:37 AM EST documented as of this encounter Care Teams Apartment Leasing Specialist Relationship Specialty Start Date End Date Chela Lynn MD [address] [place] [address] PCP - General Family Medicine 06/06/23 documented as of this encounter
--- OUTSIDE RECORDS SUMMARY | 2024-08-19 18:19 | XMS_ITS | Clinical Summary ---
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 Active meloxicam (Mobic) 15 MG tabletIndications: Lumbosacral spondylosis without myelopathy Take 1 tablet (15 mg) by mouth in the morning. 60 tablet 4 Active mometasone (Nasonex) 50 MCG/ACT nasal sprayIndications:S tuffy and runny nose Administer 1-2 sprays into each nostril Once per day. 17 g 2 4 025 Active ipratropium (Atrovent) 0.03 % nasal spray USE 2 SPRAY THREE TIMES A DAY DIRECTED 4 Active gabapentin (Neurontin) 600 MG tabletIndications: Lumbosacral spondylosis without myelopathy TAKE ONE TABLET TWICE DAILY 60 tablet 5 4 Active baclofen (Lioresal) 10 MG tabletIndications: Lumbosacral spondylosis without myelopathy TAKE ONE TABLET AT BEDTIME 90 tablet 1 4 Active alendronate (Fosamax) 70 MG tablet Take 1 tablet (70 mg) by mouth every 7 (seven) days. Take in the morning with a full glass of water, on an empty stomach, and do not take anything else by mouth or lie down for the next 30 min. 4 tablet 11 4 Active Calcium Citrate-Vitamin D3 1000-0.01 MG/30ML liquid Take 30 mL by mouth 2 times daily. 473 mL 3 4 Active Minoxidil 5 % foam Half a capful of 5% foam applied topically twice daily to the scalp in the area of hair loss 60 g 3 4 Active polyethylene glycol, PEG, 3350 (MiraLax) 17 GM/SCOOP powder Take 17 g by mouth Once per day. 527 g 2 4 Active senna-docusate sodium (Senokot-S) 8.6-50 MG tablet Take 1 tablet by mouth Once per day. 60 tablet 5 4 Active biotin 2.5 MG capsule Take 1 capsule (2.5 mg) by mouth Once per day. 90 capsule 1 4 Active allopurinol (Zyloprim) 100 MG tablet Take 1 tablet (100 mg) by mouth Once per day. 90 tablet 1 4 Active traZODone (Desyrel) 100 MG tabletIndications: Insomnia, unspecified type TAKE ONE TABLET AT BEDTIME 90 tablet 1 5 Active Wegovy 1.7 MG/0.75ML solution auto-injector Inject 0.75 mL (1.7 mg) under the skin 1 (one) time per week. 3 mL 5 Active levothyroxine (Synthroid, Levoxyl) 88 MCG tabletIndications: Hypothyroidism, unspecified type TAKE ONE TABLET EVERY MORNING 90 tablet 1 5 Active Tirzepatide (Mounjaro) 2.5 MG/0.5ML solution auto-injectorIndic ations:Class 1 obesity with serious comorbidity in adult, unspecified BMI, unspecified obesity type Inject 2.5 mg under the skin 1 (one) time per week. 2 mL 3 5 Active levothyroxine (Synthroid) 100 MCG tabletIndications: Acquired hypothyroidism 100 mcg every other day, 88 mcg every other day. 30 tablet 11 5 Active Active Problems Problem Noted Date Diagnosed Date Alopecia 04/16/2024 Assessment & Plan (04/16/2024 3:40 PM EST): Prescribing Biotin and Minoxidil for Sx. Ordering lab work for further evaluation. Relevant Medications Biotin 2.5 mg Capsule Minoxidil 5% foam Osteoporosis 04/01/2024 Acute foot pain, left 10/14/2023 Assessment & Plan (10/14/2023 1:30 PM EDT): Ordering lab work to evaluate uric acid to r/o gouty flare. Ordering XR of Left Foot for further evaluation of symptoms. Prescribing Deltasone for symptoms. Discussed possible preventative treatment if results show gout. Relevant Medication Prednisone (Deltasone) 10 MG Tablet Stuffy and runny nose 09/18/2023 Assessment & Plan (09/19/2023 8:50 AM EDT): Patient reports > 3 months of copious morning nasal discharge that can fit up to a 9 ounce cup, reports she is very concerned, unknown etiology. Normal limited nasal exam, no pressure in para-sinus area. Referral to ENT for further evaluation. Prescribing Nasonex to aid with symptoms. Relevant Medication Mometasone (Nasonex) 50 MCG/ACT Nasal [place] Physical exam, annual 07/23/2023 Assessment & Plan (07/23/2023 10:16 AM EDT): Patient presented for CPE, reviewed BMI, PHQ-9 and care gaps. Appropriate referrals placed. Displacement of lumbar inter vertebral disc without myelopathy 07/18/2023 Plantar fasciitis, bilateral 07/18/2023 Assessment & Plan (07/19/2023 1:53 AM EDT): I discussed with patient I suspected patellofemoral syndrome with possible arthritis. I ordered an XR of Right knee for further evaluation. PAD (peripheral artery disease) 06/12/2023 Assessment & Plan (06/12/2023 10:27 AM EST): Diminished pulses on foot exam associated with some stigmata of PAD, will send for US. Unknown etiology of toe numbness, will need to r/o vasc origin. Diverticulosis of colon 06/06/2023 06/06/19 24 Overview (06/06/2023): severe in sigmoid, mild in descending colon by abdominal CT Adjustment disorder with depressed mood 06/06/19 24 06/06/2023 Class 1 obesity in adult 06/06/2023 024 Assessment & Plan (03/20/2024 4:27 PM EST): Patient currently on pharmacotherapy to assist with management of her weight. Starting weight: 175 lbs Current weight: 132 lbs Total lost: 42 lbs Review continue lifestyle modifications. Patient was titrated up to treatment dose. Tolerated titration well. Patient on Wegovy, given know efficacy and proven benefits to reduce the risk of cardiovascular events in patients who are overweight or obese and have cardiovascular disease, following of the SELECT trial results. Reviewed mechanism of action with patient. Discussed side effects with patient: nausea, vomiting, diarrhea & risk of pancreatitis. No contraindications identified: , hx of pancreatitis, hx of medullary thyroid cancer or MEN 2. Discussed calorie deficit, recommended reduction of 20-30% of maintenance calories; brick chimney supervisor referral offered. Recommended to decrease soda and sugary beverage consumption. Recommended at least 20 g per meal of protein to assist with satiety. Recommended at least 150 min/week of moderate intensity exercise. Pt agreed to have shingle vaccination, follow up in 6 months. Assessment & Plan (12/14/2023 12:01 AM EDT): Pt is currently 147 Lb. Pt was 175 Lb in June. She has lost a total of 28 pounds with a 15% of body weight. Pt reports no ISABELLA with the medication. Pt BP was perfect 115/67. Relevant orders: Continue with 2.4 dosage for Wegovy F/u in 3 months Assessment & Plan (07/23/2023 10:17 AM EDT): Discussed calorie deficit, recommended reduction of 20-30% of maintenance calories. Recommended to decrease soda and sugary beverage consumption. Recommended at least 20 g per meal of protein to assist with satiety. Recommended at least 150 min/week of moderate intensity exercise. Will start Wegovy, discuss titration and side effects, will need to proceed with PA. Hypothyroidism 06/06/2023 06/06/2023 Assessment & Plan (12/14/2023 12:01 AM EDT): Relevant orders: TSH W/Reflex to FT4 - make sure levels remain well due to recent weight loss. If TSH comes back normal will re-check in a year. Insomnia 06/06/2023 06/06/2023 Lumbosacral spondylosis without myelopathy 06/0606/06/2023 Osteopenia 06/06/2023 06/06/2023 Overview (06/06/2023): Dexa 2014 osteopenialast dexa 2013 Spinal stenosis of lumbar region 06/06/2023 06/06/2023 Shoulder pain 06/06/2023 06/06/2023 head lumps 06/06/2023 Assessment & Plan (06/12/2023 10:27 AM EST): Unknown if variation of normal scalp folds, distressing to patient will refer to dermatology Encounters Date Type Department Care Team Description 08/19/2024 3:15 PM EDT Office Visit [facility] [address] [place] [address] Audelia De Luna MD Mold suspected exposure (Primary Dx) 08/19/2024 Travel 08/04/2024 Telephone [facility] [address] [place] [address] Audelia De Luna MD 08/04/2024 Orders Only [facility] [address] [place] [address] Audelia De Luna MD Acquired hypothyroidism (Primary Dx) 08/03/2024 Telephone [facility] [address] [place], [place] [phone] Chela Lynn MD Nurse Triage 07/29/2024 Telephone [facility] [address] [place] [address] Audelia De Luna MD Results ( Auedlia De Luna MD [facility]es/Please call. Ms Rut G Stefanowich has hypoproteinemia which could explain the swelling of the lower limbs. I recommend to increase her protein intake ( Seeds, Nuts, legumes, beans etc if tolerated. ) I would repeat the blood work in 3 months to assess improvement. It's reassuring to notice that pt is not losing protein in her urine. /) 07/27/2024 Orders Only [facility] [address] [place] [address] Audelia De Luna MD 07/24/2024 3:45 PM EDT Office Visit [facility] [address] [place] [address] Audelia De Luna MD Edema, lower extremity (Primary Dx); Paresthesias 07/24/2024 Travel 07/20/[address] [address] Chela Lynn MD Nurse Triage 07/14/2024 Telephone [facility] [address] [place] [address] Chela Lynn MD Prior Authorization 07/07/2024 3:15 PM EDT Office Visit [facility] [address] [place] [address] Audelia De Luna MD Class 1 obesity with serious comorbidity in adult, unspecified BMI, unspecified obesity type (Primary Dx) 07/07/2024 Travel 06/30/2024 Telephone [facility] [address] [place] [address] Chela Lynn MD Medication Question 06/17/2024 Refill [facility] [address] [place] [address] Chela Lynn MD Hypothyroidism, unspecified type 06/04/2024 Telephone [facility] [address] [place] [address] Chela Lynn MD 06/02/[address] [address] Chela Lynn MD Medication Question; Prior Authorization 05/22/2024 Refill [facility] [address] [place] [address] Chela Lynn MD from Last 3 Months Immunizations Name Administration Dates Next Due Influenza High-dose Quadriva lent Preservative Free 12/27/2022,12/16/2020 Influenza Quadrivalent Adjuvanted 01/07/2020 Influenza Whole 01/02/2020,12/12/2018 Influenza injectable quadriv alent IIV4 with preservative 02/02/2015 Influenza live intranasal qu adrivalent LIAV4 01/28/2014 Influenza, High Dose Seasona l, Preservative Free 12/24/2023,01/09/2017,02/02/2016 Influenza, IIV3, injectable 12/24/2023,0 12/27/2022,02/05/2022,12/16,01/07/2020,01/21/2018,12/28/2017 ,01/09/2017,01/08/2017,02/12/2016,09/2015,06/24/2015,02/02/2015, 3,04/29/2012,01/28/2012,01/24/2012 Influenza, live, intranasal 01/28/2014 Influenza, trivalent, adjuvanted 12/12/2018,12/29 Pfizer Covid-19 Vaccine 12+ Bivalent 03/02/2022 Pneumococcal Conjugate PCV 13 07/22/2015 Pneumococcal Polysaccharide PPSV23 01/29/2014 RSV Bivalent 01/21/2024 Tdap 06/06/2023, 2,04/29/2011,09/28 Zoster, live 06/17/2013,06/16/2013 Social History Tobacco Use Types Packs/Day Years Used Date Smoking Tobacco: Former Cigarettes 0 04/29/2003 - 04/29/1964 Passive Smoke Exposure: Never Smokeless Tobacco: Never Tobacco Cessation:Counseling Given: Not Answered Alcohol Use Standard Drinks/Week Comments Never 0 [...] Orientation Straight 06/06/2023 10 :16 AM EST Last Filed Vital Signs Vital Sign Reading [...] Mass Index 22.89 08/19/2024 3:12 PM EDT Plan of Treatment Health Maintenance Due Date Last Done Comments Zoster Vaccines (2 of 3) 08/12/2013 06/17/2013, 05/30 SDOH Screening 05/28/2024 05/28/2023 Depression Screening 06/06/2024 06/06/2023, 06/06/19 Alcohol/Substance Use Screening 03/20/2025 03/20/2024 Mammogram 06/21/2025 06/21/2023 Tobacco Screening 08/19/2025 08/19/2024 Lipid Panel 06/18/2028 06/18/2023 DTaP/Tdap/Td Vaccines (5 - Td or Tdap) 06/06/2033 06/06/2023, 10/22/2011, 04/29/2011, Additional history exists Pneumococcal Vaccine: 50+ Years Completed 07/22/2015, 01/29/2014 Hepatitis C Screening Completed 06/18/2023 Influenza Vaccine Completed 12/24/2023, , 12/27/2022, Additional history exists COVID-19 Vaccine Completed 12/27/2023, , 03/02/2022, Additional history exists RSV Patients and Patients Aged 60 years or older Completed 01/21/2024 HIB Vaccines Aged Out No longer eligi ble based on patient's age to complete this topic HPV Vaccines Aged Out No longer eligi ble based on patient's age to complete this topic Hepatitis A Vaccines Aged Out No long er eligible based on patient's age to complete this topic Hepatitis B Vaccines Aged Out No long er eligible based on patient's age to complete this topic IPV Vaccines Aged Out No longer eligi ble based on patient's age to complete this topic Meningococcal Vaccine Aged Out No [place] eligible based on patient's age to complete this topic RSV under 20 months Aged Out No longe r eligible based on patient's age to complete this topic Rotavirus Vaccines Aged Out No longer eligible based on patient's age to complete this topic Procedures Procedure Name Priority Date/Time Associated Diagnosis Comments XR CHEST 2 VIEWS Routine 07/27/2024 9:25 AM EDT Edema, lower extremity T4, FREE Routine 07/27/2024 9:12 AM EDT VITAMIN B6 Routine 07/27/2024 9:12 AM EDT Edema, lower extremity Paresthesias VITAMIN B12/FOLATE, SERUM PANEL Routine 07/27/2024 9:12 AM EDT Edema, lower extremity Paresthesias VITAMIN B1 Routine 07/27/2024 9:12 AM EDT Edema, lower extremity Paresthesias TSH W/REFLEX TO FT4 Routine 07/27/2024 9 :12 AM EDT Edema, lower extremity Paresthesias COMPREHENSIVE METABOLIC PANEL Routine 07/27/2024 9:12 AM EDT Edema, lower extremity Paresthesias CBC WITH AUTO DIFFERENTIAL Routine 07/27/2024 9:12 AM EDT Edema, lower extremity Paresthesias ALBUMIN, RANDOM URINE W/CREATININE Routine 07/27/2024 9:10 AM EDT Edema, lower extremity Paresthesias URINALYSIS, COMPLETE Routine 07/27/2024 9:10 AM EDT Edema, lower extremity Paresthesias BI MAMMOGRAM SCREENING TOMOSYNTHESIS BILATERAL Routine 06/21/2023 9:30 AM EST Breast cancer screening by mammogram HEPATITIS C AB W/REFL TO HCV RNA, QN, PCR Routine 06/18/2023 9:33 AM EST Encounter for health-related screening LIPID PANEL, STANDARD Routine 06/18/2023 9:33 AM EST Class 1 obesity from Last 3 Months or Most Recently Relevant to Health Maintenance Results * XR Chest 2 Views (07/27/2024 9:25 AM EDT) Anatomical Region Laterality Modality Chest Radiographic Aundrea ging 07/27/2024 9:25 AM EDT Narrative 07/27/2024 11:38 AM EDT ? [facility] ?[address] ?[place] [address] ?XRay Report ? Signed ? Patient: Stefanowich,Rut G ?MR#: [id number] ?? [id number] ? : 1950 ?Acct:[id number] ? Age/Sex: 74 / F ?ADM Date: 03/31/25 ? Loc: HO.[facility] ? Attending Dr: Audelia De Luna MD ? Ordering Physician: Audelia De Luna MD ?? Date of Service: 07/27/24 ?? Procedure(s): XR chest 2V ?? Accession Number(s): [id number] ? cc: Audelia De Luna MD ? EXAMINATION: ??XR CHEST 2 VIEWS ? HISTORY: Lower limb edema ? COMPARISON: There are no prior studies for comparison. ? FINDINGS: ??PA and lateral views of the chest are submitted. The lungs ?? are expanded and clear. ??There is no pleural effusion, pneumothorax, or ?? pulmonary vascular congestion. ??The heart is normal in size. The aorta ?? is calcified. ??There is degenerative disc disease of the spine. There ?? are surgical clips in the right axilla, all left lateral chest wall, ?? and right upper quadrant of the abdomen. ? XR/XR chest 2V ?? IMPRESSION: ?? Clear lungs. ? Electronically signed by: ??Ignacio Peter MD ??07/27/2024 11:36 AM EDT ? Dictated By: ?Ignacio Peter MD ? Signed By: ?<Electronically signed by Ignacio Peter MD in OV> ?07/27/24 1136 ? DD/ 4 ? TD/TT: 07/27/24929 ? Supervisor Cloth Winding: ? Procedure Note Paco Sánchez - 07/27/[address] [address] XRay Report Signed Patient: Rut Morales R#: [id number] : 9Acct:[id number] Age/Sex: 74 / FADM Date: 07/27/24 Loc: [facility] Attending Dr: Audelia De Luna MD Ordering Physician: Audelia De Luna MD Date of Service: 07/27/24 Procedure(s): XR chest 2V Accession Number(s): [id number] cc: Audelia De Luna MD EXAMINATION: XR CHEST 2 VIEWS HISTORY: Lower limb edema COMPARISON: There are no prior studies for comparison. FINDINGS: PA and lateral views of the chest are submitted. The lungs are expanded and clear. There is no pleural effusion, pneumothorax, or pulmonary vascular congestion. The heart is normal in size. The aorta is calcified. There is degenerative disc disease of the spine. There are surgical clips in the right axilla, all left lateral chest wall, and right upper quadrant of the abdomen. XR/XR chest 2V IMPRESSION: Clear lungs. Electronically signed by: Ignacio Peter MD 07/27/2024 11:36 AM EDT RP Dictated By: Ignacio Peter MD Signed By: <Electronically signed by Ignacio Peter MD in OV> 07/27/24 1136 DD/ 4 TD/TT: 07/27/24929 Supervisor Cloth Winding: us Audelia De Luna MD IMG XR PROCEDURES Final Res ult * Vitamin B12/Folate, Serum Panel (07/27/2024 9:12 AM EDT) Vitamin B12 261 200 - 900 pg/mL [facility] Comment:NORMAL 200-900 PG/ML INDETERMINATE 160-199 PG/ML DEFICIENT < 160 PG/ML Folate 13.9 > or = 4.0 ng/mL [facility] Comment:Reference Values:> o r = 4.0 ng/mL< 4.0 ng/mL suggests folate deficiency Methotrexate, aminopterin and folinic acid(leucovorin) are chemotherapeutic agents whose molecularstructures are similar to folate; therefore, the Architectfolate assay cannot be used for patients using these drugs. Blood Venous blood specimen / Unknown 07/27/2024 9:12 AM EDT 07/27/2024 9:12 AM EDT us Audelia De Luna MD LAB BLOOD ORDERABLES Final Result [facility] [address] [place] [phone] * (ABNORMAL) TSH W/Reflex to FT4 (07/27/2024 9:12 AM EDT) TSH reflex Free T4 4.55(H) 0.32 - 4.0 uIU/mL [facility] Blood Venous blood specimen / Unknown 07/27/2024 9:12 AM EDT 07/27/2024 9:12 AM EDT us Audelia De Luna MD LAB BLOOD ORDERABLES Final Result [facility] [address] [place] [phone] [phone] * CBC auto differential (07/27/2024 9:12 AM EDT) White Blood Count 7.5 4.8 - 10.8 X10*3/uL [facility] Red Blood Count 4.55 4.20 - 5.50 X10*6/uL [facility] Hemoglobin 13.6 12.0 - 16.0 g/dl [facility] Hematocrit 42.6 37.0 - 47.0 % [facility] Mean Corpuscular Volume 93.6 80.0 - 98.0 fL [facility] Mean Corpuscular Hemoglobin 29.9 27.0 - 33.0 pg [facility] Mean Corpuscular HGB Conc 31.9 31.0 - 35.0 g/dl [facility] Red Cell Distribution Width 15.0 11.0 - 16.0 % [facility] Platelet Count 328 160 - 400 X10*3/uL [facility] Mean Platelet Volume 9.7 9.4 - 12.3 fL [facility] Neutrophils Percent Auto 60.9 45 - 73 % [facility] Imm Gran Pct Auto 0.4 0.0 - 0.4 % [facility] Lymphocytes Percent Auto 27.2 20 - 40 % [facility] Monocytes Percent Auto 8.4 2 - 11 % [facility] Eosinophils Percent Auto 2.3 0 - 4 % [facility] Basophils Percent Auto 0.8 0 - 2 % [facility] NRBC Pct Auto 0.0 0.0 - 0.2 /100WBC [facility] Neutrophils Absolute Auto 4.6 2.0 - 8.3 x10*3/uL [facility] Imm Gran Abs Auto 0.03 0.00 - 0.03 X10*3/uL [facility] Lymphocytes Absolute Auto 2.1 1.2 - 4.9 X10*3/uL [facility] Monocytes Absolute Auto 0.6 0.1 - 1.2 X10*3/uL [facility] Eosinophils Absolute Auto 0.2 0.0 - 0.4 X10*3/uL [facility] Basophils Absolute Auto 0.1 0.0 - 0.2 X10*3/uL [facility] NRBC Abs Auto 0.000 0.0 - 0.012 X10*3/uL [facility] Blood Venous blood specimen / Unknown 07/27/2024 9:12 AM EDT 07/27/2024 9:12 AM EDT us Audelia De Luna MD LAB BLOOD ORDERABLES Final Result Performing Organization Address City/[facility]/ZIP Co de Phone Number [facility] [address] [place] [phone] * T4, Free (07/27/2024 9:12 AM EDT) Free T4 (Free Thyroxine) 0.96 0.71 - 1.85 ng/dL [facility] 07/27/2024 9:12 AM EDT 07/27/2024 9:12 AM EDT us Audelia De Luna MD LAB BLOOD ORDERABLES Final Result Performing Organization Address City/[facility]/ZIP Co de Phone Number [facility] [address] [place] [address] [phone] * Vitamin B1 (07/27/2024 9:12 AM EDT) Vitamin B1 15 8 - 30 nmol/L [facility] Comment:Vitamin supplementat ion within 24 hours prior toblood draw may affect the accuracy of the results.This test was developed and its analytical performancecharacteristics have been determined by [employer] [place], [place]. It hasnot been cleared or approved by the U.S. Food and DrugAdministration. This assay has been validated pursuantto the CLIA regulations and is used for clinicalpurposes.THIS TEST WAS PERFORMED AT:[employer] [id number] [place] [address]USPVFOTJEN MARIE MD,PHD Blood Venous blood specimen / Unknown 07/27/2024 9:12 AM EDT 07/27/2024 9:12 AM EDT Audelia De Luna MD LAB BLOOD ORDERABLES Final Result [facility] [address] [place] [phone] * Vitamin B6 (07/27/2024 9:12 AM EDT) Pathologist [facility] Vitamin B6 3.4 2.1 - 21.7 ng/mL [facility] Comment:Vitamin supplementat ion within 24 hours prior toblood draw may affect the accuracy of the results.This test was developed and its analytical performancecharacteristics have been determined by [employer] [place], [place]. It hasnot been cleared or approved by the U.S. Food and DrugAdministration. This assay has been validated pursuantto the CLIA regulations and is used for clinicalpurposes.THIS TEST WAS PERFORMED AT:[id number] [place] [address]ESONQLYJEN MARIE MD,PHD Blood Venous blood specimen / Unknown 07/27/2024 9:12 AM EDT 07/27/2024 9:12 AM EDT us Audelia De Luna MD LAB BLOOD ORDERABLES Final Result [facility] [address] [place] [phone] * (ABNORMAL) Comprehensive Metabolic Panel (07/27/2024 9:12 AM EDT) Sodium 143 135 - 145 mmol/L [facility] Potassium 4.4 3.3 - 5.1 mmol/L [facility] Chloride 109(H) 96 - 108 mmol/L [facility] Carbon Dioxide 29 22 - 29 mmol/L [facility] Anion Gap 9(L) 12 - 20 [facility] Urea Nitrogen (BUN) 14 9 - 16 mg/dL [facility] Creatinine, Serum 0.66 0.5 - 1.4 mg/dL [facility] Estimated Glomerular Filt Rate >60 [facility] Comment:Chronic Kidney Disea se: Estimated GFR < 60 mL/min/1.84m5Mchqfs Kidney Disease: Estimated GFR < 15 mL/min/1.73m2 Glucose 74 60 - 115 mg/dL [facility] Calcium 8.8 8.4 - 10.2 mg/dL [facility] Bilirubin, Total 0.5 0.0 - 1.0 mg/dL [facility] Aspartate Amino Transferase 28 5 - 31 U/L [facility] Alanine Aminotransferase 17 0 - 31 U/L [facility] Total Protein 6.0(L) 6.5 - 8.0 g/dL [facility] Albumin Level 3.8 3.5 - 5.0 g/dL [facility] Alkaline Phosphatase 42 39 - 117 U/L [facility] Blood Venous blood specimen / Unknown 07/27/2024 9:12 AM EDT 07/27/2024 9:12 AM EDT us Audelia De Luna MD LAB BLOOD ORDERABLES Final Result [facility] [address] [place] [phone] * Albumin, Random Urine W/Creatinine (07/27/2024 9:10 AM EDT) Creatinine, Urine 160.96 mg/dL [facility] Microalbumin Urine 9.0 mg/L [facility] Microalbum Creatinine Ratio Ur 5.5 <30 ug/mg cr [facility] Comment:Albumin/Creatinine R atio Reference Ranges: Normal: < 30 ug/mg creatinine Microalbuminuria: 30 - 300 ug/mg creatinineClinical Albuminuria: > 300 ug/mg creatinine Urine (Urine, Random) 07/27/2024 9:10 AM EDT 07/27/2024 9:36 AM EDT Audelia De Luna MD LAB URINE ORDERABLES Final Result Performing Organization Address [facility] de Phone Number [facility] [address] [place] [phone] * (ABNORMAL) Urinalysis Complete (07/27/2024 9:10 AM EDT) Color Urine Dark Yellow [facility] Appearance Urine Clear [facility] PH 5.5 5.0 - 9.0 [facility] Glucose Urine UA Negative Negative mg/dL [facility] Urine Blood Negative Negative [facility] Specific [place] - Urine 1.025 1.005 - 1.025 [facility] Urine Protein Negative Neg-Trace mg/dL [facility] Urine Ketones Trace Negative mg/dL [facility] Nitrite Urine Negative Negative [facility] Leukocyte Esterase Urine Small (1+)(A) Negative [facility] RBC Urine 0-2 0 - 2 /HPF [facility] Urine WBC 0-5 0 - 5 /HPF [facility] Urine Squamous Epithelial Cell 0-2 0 - 2 /HPF [facility] Urine Bacteria None Seen None Seen [facility] Hyaline Casts, Urine 0-2 0 - 2 /LPF [facility] Urine (Urine, Random) 07/27/2024 9:10 AM EDT 07/27/2024 9:36 AM EDT us Audelia De Luna MD LAB URINE ORDERABLES Final Result Performing Organization Address City/State/[facility] Co de Phone Number [facility] [address] [place] [address] [phone] * BI Mammogram Screening Tomosynthesis Bilateral (06/21/2023 9:30 AM EST) Anatomical Region Laterality Modality Breast Bilateral Mammography 06/21/2023 9:30 AM EST Narrative 07/11/2023 5:57 AM EDT ? [facility] [place] ? [address] ?[place] [address] ? Mammography Report ? Signed ? Patient: Stekim,Rut G ?MR#: MM ?? [id number] ? : 1950 ?Acct:[id number] ? Age/Sex: 72 / F ?ADM Date: //24 ? Loc: HO.MAMMO ? Attending Dr: Chela Lynn MD ? Ordering Physician: Chela Lynn MD ?Results: 2Beni ?? gn Findings ? Date of Service: //24 ?Follow Up: 1 Year From Orig ?? inal Mammogram ? Procedure(s): MM tomosynthesis screening BI ?? Accession Number(s): [id number] ? cc: Chela Lynn MD ? EXAMINATION: ?? MM SCREENING DIGITAL BREAST TOMOSYNTHESIS, BILATERAL ? CLINICAL INFORMATION: ? Screening. Asymptomatic. ? The patient is status post bilateral breast reduction. ? COMPARISON: ?? Mammography: This study is compared with prior exams dating back to ? TECHNIQUE: ?? Digital breast tomosynthesis is performed in both the craniocaudal and ?? mediolateral oblique views along with computer-aided detection (CAD). ?? Synthesized 2D images are generated from the tomosynthesis. ? FINDINGS: ?? There are scattered areas of fibroglandular density (ACR BI-RADS breast ?? composition Category b). ? There are no significant masses, abnormal calcifications, or other ?? abnormalities. ?? Post reduction changes are present in each breast. ? MM/MM tomosynthesis screening BI ?? IMPRESSION: ?? No mammographic evidence of malignancy. ? ASSESSMENT: ? BI-RADS BI-RADS 2 - Benign Findings ? RECOMMENDATION: ?? Routine annual mammography screening. ? 1 year F/U ? This examination should not preclude the clinical evaluation of a ?? suspicious palpable abnormality. ? This patient's information was entered into a reminder system with a ?? target due date for their next mammogram. ? Dictated By: ?Bing Cadet MD ? Signed By: ?<Electronically signed by Bing Cadet MD in OV> ? 07/11/23 0554 ? DD/ 9 ? TD/TT: ? Supervisor Cloth Winding: ? Procedure Note Paco Sánchez - 07/11/2023 [facility] [address] [place] [address] [place] [address] Mammography Report Signed Patient: Rut Morales R#: [id number] : 9Acct:[id number] Age/Sex: 72 / FADM Date: 06/21/23 Loc: HO.MAMMO Attending Dr: Chela Lynn MD Ordering Physician: Chela Lynn MDResults: 2Beni gn Findings Date of Service: 06/21/23Follow Up: 1 Year From [facility] Mammogram Procedure(s): MM tomosynthesis screening BI Accession Number(s): [id number] cc: Chela Lynn MD EXAMINATION: MM SCREENING DIGITAL BREAST TOMOSYNTHESIS, BILATERAL CLINICAL INFORMATION: Screening. Asymptomatic. The patient is status post bilateral breast reduction. COMPARISON: Mammography: This study is compared with prior exams dating back to TECHNIQUE: Digital breast tomosynthesis is performed in both the craniocaudal and mediolateral oblique views along with computer-aided detection (CAD). Synthesized 2D images are generated from the tomosynthesis. FINDINGS: There are scattered areas of fibroglandular density (ACR BI-RADS breast composition Category b). There are no significant masses, abnormal calcifications, or other abnormalities. Post reduction changes are present in each breast. MM/MM tomosynthesis screening BI IMPRESSION: No mammographic evidence of malignancy. ASSESSMENT: BI-RADS BI-RADS 2 - Benign Findings RECOMMENDATION: Routine annual mammography screening. 1 year F/U This examination should not preclude the clinical evaluation of a suspicious palpable abnormality. This patient's information was entered into a reminder system with a target due date for their next mammogram. Dictated By: Bing Cadet MD Signed By: <Electronically signed by Bing Cadet MD in OV> 07/11/23 0554 DD/ 0930 TD/TT: Supervisor Cloth Winding: us Chela Lynn MD IMG BI PROCEDURES Final Resul t * Hepatitis C Antibody with Reflex to HCV, RNA, Quantitative, Real-Time PCR (06/18/2023 9:33 AM EST) Hepatitis C Antibody Nonreactive Nonreactive [facility] Comment:Antibodies to HCV no t detected; does not exclude early acuteHCV infection. Blood Venous blood specimen / Unknown 06/18/2023 9:33 AM EST 06/18/2023 2:41 PM EST us Chela Lynn MD LAB BLOOD ORDERABLES Final Re sult Performing Organization Address [facility] Co de Phone Number [facility] [address] [place] [phone] * Lipid Panel, Standard (06/18/2023 9:33 AM EST) Triglycerides 103 <150 mg/dL [facility] Comment:Desirable Triglyceri de: less than 150 mg/dLBorderline High Triglyceride 150-199 mg/dLHigh Triglyceride: 200-499 mg/dLVery High Triglyceride: greater than or equal to 5OO mg/dL Cholesterol 143 <200 mg/dL [facility] Comment:Desirable Cholestero l: less than 200 mg/dLBorderline High Cholesterol: 200-239 mg/dLHigh Cholesterol: greater than 239 mg/dL LDL Cholesterol Calculated 82 <100 mg/dL [facility] Comment:Desirable LDL: less than 100 mg/dLNear Optimal/Above Optimal LDL: 110- 129 mg/dLBorderline High LDL: 130-159 mg/dLHigh LDL: 160-189 mg/dLVery High LDL: greater than or equal to 190 mg/dL HDL Cholesterol 41 >40 mg/dL [facility] Comment:Desirable HDL: great er than 40 mg/dL Note: This HDL assay may give artificially low results in patients with liver disease. Blood Venous blood specimen / Unknown 06/18/2023 9:33 AM EST 06/18/2023 2:41 PM EST us Chela Lynn MD LAB BLOOD ORDERABLES Final Re sult Performing Organization Address [facility] Co de Phone Number [facility] [address] [place] [phone] from Last 3 Months or Most Recently Relevant to Health Maintenance Insurance [facility] MEDICARE ADVANTAGE HMO Care Teams Weatherization Operations Manager Relationship Specialty Start Date End Date Chela Lynn MD [address] [place] [phone] PCP - General Family Medicine 06/06/23
--- OUTSIDE RECORDS SUMMARY | 2024-08-19 18:19 | XMS_ITS | Encounter Summary ---
Author Organization [employer] Address [address] [place] [address] [address] [place] [address] Care Team Providers Care Oracle Soa Consultant Name Role Phone Chela Lynn MD Primary Care Provider [phone] Reason for Visit * Reason Comments Med Refill Encounter Details Date Type Department Care Team ([facility] Contact Info) Description 04/24/2024 Refill [facility] [address] [place], [place] [phone] Chela Lynn MD [address] [place] [address] Social History Tobacco Use Types Packs/Day Years [...] documented as of this encounter Care Teams Oracle Soa Consultant Relationship Specialty Start Date End Date Chela Lynn MD [address] [place] [address] PCP - General Family Medicine 06/06/23 documented as of this encounter
--- OUTSIDE RECORDS SUMMARY | 2024-08-19 18:20 | XMS_ITS | Encounter Summary ---
Author Organization [employer] Address [address] [facility] [address] [place] [address] Care Team Providers Care Msw Name Role Phone Chela Lynn MD Primary Care Provider [phone] Reason for Visit * Reason Comments Med Change Request Encounter Details Date Type Department Care Team ([facility] st Contact Info) Description 09/18/2023 Refill [facility] [address] [place], [place] [phone] Chela Lynn MD [address] [place] [address] Stuffy and runny nose Social History Tobacco Use Types Packs/Day Years Used Date Smoking Tobacco: Former Cigarettes 1 20 0 04/29/2003 - 04/29/2023 Passive Smoke Exposure: Never Smokeless Tobacco: Never [...] as of this encounter Visit Diagnoses Diagnosis Stuffy and runny nose Other diseases of nasal cavity and sinuses documented in this encounter Additional Health Concerns Assessment Noted Time PHQ-9 Depression Total Score: 2 06/06/19 24 10:37 AM EST documented as of this encounter Care Teams Msw Relationship Specialty Start Date End Date Chela Lynn MD [address] [place] [address] PCP - General Family Medicine 06/06/23 documented as of this encounter
--- OUTSIDE RECORDS SUMMARY | 2024-08-19 18:20 | XMS_ITS | Encounter Summary ---
Author Organization [employer] Address [address] [facility] [address] [place] [address] Care Team Providers Care Personnel Generalist Manager Name Role Phone Chela Lynn MD Primary Care Provider [phone] Reason for Visit * Reason Onset Date Comments Results 02/19/2024 Encounter Details Date Type Department Care Team ([facility] st Contact Info) Description 02/19/2024 Telephone [facility] MEDICINE [address] [place] [address] Chela Lynn MD [address] [place] [address] Results Social History Tobacco Use Types Packs/Day Years [...] encounter Miscellaneous Notes * Telephone Encounter - Wing Samreen RN - 02/21/2024 10:28 AM EDT Pt called and results explained. See telephone call from 02/20 titled results * Telephone Encounter - Pilar Elizabeth - 02/20/2024 4:29 PM EDT Tc from pt returning call requesting status on Xray results. * Telephone Encounter - Nathan Carvajal - 02/20/2024 8:35 AM EDT Tc from pt calling in regards to message prior stating she received a call from a nurse yesterday and the nurse informed pt that her labs are normal but her XR results were never discussed. Pt would like another call back with XR results as well as scheduling a follow up. Please contact pt at [phone]. * Telephone Encounter - Nathan Carvajal - 02/19/2024 9:41 AM EDT TC from pt requesting call back regarding Results. Type of results: Labs Date when done: 02/18/24 Facility: [facility] - Type of results: XR Date when done: 02/18/24 Facility: [facility] documented in this encounter Plan of Treatment Not on file documented as of this encounter Visit Diagnoses Not on filedocumented in this encounter Additional Health Concerns Assessment Noted Time PHQ-9 Depression Total Score: 2 06/06/19 10:37 AM EST documented as of this encounter Care Teams Personnel Generalist Manager Relationship Specialty Start Date End Date Chela Lynn MD [address] [place] [address] PCP - General Family Medicine 06/06/23 documented as of this encounter
--- OUTSIDE RECORDS SUMMARY | 2024-08-19 18:20 | XMS_ITS | Data Portability ---
Author Organization [place] - [facility], Allergy Address [address] [address] Care Team Providers Care Continuous Linter Drier Operator Name Role Phone [facility] Primary Care Provider Assessment No assessment recorded. Plan of Treatment Reminders Order Date Submit Date Provider Last Modified By Organization Details Last Modified Time Details Appointments None recorded. Lab None recorded. Referral None recorded. Procedures None recorded. Surgeries None recorded. Imaging None recorded. Medication Orders ipratropium bromide 21 mcg (0.03 %) nasal spray 2023 024 [facility][id number], [address] [facility], [place], [address], 4 09:11:23 Patient TargetsNo targets recorded. Patient InstructionsNo instructions recorded. Reason for Referral None Reported. Problems Name Problem SNOMED Code Status Onset Date Resolution Date Notes Provider Name and Address Organization Details Recorded Time Vasomotor rhinitis 5745499 Active 2021 Vasomotor rhinitis; Note: Date Diagnosed: 07/06/2021 8:58 AM (J30.0) Not Available [facility] 4 02:56:49 Hypertrop hy of nasal turbinate s 75117544 Active 2022 Hypertroph y of nasal turbinates ; Note: Date Diagnosed: 03/15/2023 5:09 PM (J34.3) Not Available [facility] 4 02:56:46 Allergic rhinitis 85418770 Active 2022 Other allergic rhinitis; Note: Date Diagnosed: 03/15/2023 5:09 PM (J30.89) Not Available [facility] 4 02:56:48 Nasal congestio n 92898661 Active 2023 TREASURE ROMAN MD [address] [facility],[place] [address], [facility] [place], [address] , [facility] 4 09:05:55 Anterior rhinorrhe a 226546954 Active 2023 TREASURE ROMAN MD [address] [place] [address],[place] [address], [facility] [place], [address] , [facility] 4 09:06:59 Problem Notes None recorded. Procedures Surgical History Date Name Laterality Status Provider Name and Address Organization Details Recorded Time 11/11/2023 NasalEndos copy_DP completed TREASURE ROMAN MD [address] [place] [address],[place] [address], [place], [phone], [facility] 11/11/2023 09:14:27 Imaging Results None recorded. Procedure Notes None recorded. Medical Equipment None Reported. Allergies Allergen ID Allergen Name Allergen Category Reaction Reaction Severity Criticality Documentation Date Start Date Code Code System Note Provider Name and Address Organization Details Recorded Time 915957 Product containin g penicilli n (product) medicatio n other Not available Not available 09/10/2023 48266 8001 SNOMED React ion: other react ion, Unkno wn; Not Available [facility] 4 01:12:17 780630 morphine medicatio n other Not available Not available 09/10/2023 7052 RxNorm React ion: other react ion, Unkno wn; Not Available [facility] 4 01:12:18 Medications Name Sig Start Date Stop Date Status Note LastModified by Organization Details LastModified Time pramipexol e 1 mg tablet 2021 active Medicatio n ID: [id number] Br and Name: pramipexo le Send Method: E-Prescri bed Subs Allowed: subs [...] Updated DateTime 11/11/2023 157.48 cm 28.3 kg/m2 23113.82 g Nathaniel Carlson [place] - [facility] 11/11/2023 08:51:32 Social History None recorded. Functional Status None recorded. Mental Status None recorded. Family History Nothing Reported. Medical History No medical history recorded. Gynecological HistoryNo gynecological history recorded. Obstetrics History GPAL:G 0 P 0 0 0 0 Past Encounters Encounter ID Performer Location Encounter Start Date Encounter Closed Date Diagnosis/Indication Diagnosis SNOMED-CT Code Diagnosis ICD10 Code Diagnosis Note [id number] TREASURE ROMAN MD [facility] [address] [address] 11/11/2023 08:43:17 11/11/2023 09:24:33 Nasal congestion 74869082 R09.81 Nasal endo negative for polyps and purulence. She may have vasomotor rhinitis. I would consider azelastine if not improved. Anterior rhinorrhea 2772 93153 J34.89 Likely vasomotor rhinitos. No hx of trauma or surgery. Vasomotor rhinitis 55491 03 J30.0 Her symptoms are most consistnet with vasomotor rhinitis. I recommend a trial of iprtropium . Health Concerns Section Related Observation LastModified by Organization Detai ls LastModified Time None Recorded Concern Status LastModified by Organization Details LastModified Time None Recorded Advance Directives Directive None Recorded Payers Encounter Date Sequence Insurance Name Policy Number Policy Clark Covered Member ID Clark Member ID Guarantor Name 11/11/2023 1 [facility]: MEDICARE HMO BLUE (MEDICARE REPLACEMENT HMO) [id number] Rut Morales [id number] Rut Morales Notes Date Note Type [...] of abx for sinusitis. TREASURE ROMAN MD [address] [place] [address], [place], [address], [place] - [facility] 11/11/2023 09:14:43 OBGyn Episode No OBEpisode recorded.
--- OUTSIDE RECORDS SUMMARY | 2024-08-19 18:20 | XMS_ITS | Encounter Summary ---
Author Organization [employer] Address [address] [place] [address] [address] [place] [address] Care Team Providers Care Dental Technician Instructor Name Role Phone Chela Lynn MD Primary Care Provider [phone] Reason for Visit * Reason Onset Date Comments Med Refill 07/27/2023 Encounter Details Date Type Department Care Team ([facility] st Contact Info) Description 07/27/2023 Refill [facility] MED & PEDS [address] [place] [address] Chela Lynn MD [address] [place] [address] Lumbosacral spondylosis without myelopathy Social History Tobacco Use Types Packs/Day Years [...] as of this encounter Visit Diagnoses Diagnosis Lumbosacral spondylosis without myelopathy documented in this encounter Additional Health Concerns Assessment Noted Time PHQ-9 Depression Total Score: 2 06/06/19 10:37 AM EST documented as of this encounter Care Teams Dental Technician Instructor Relationship Specialty Start Date End Date Chela Lynn MD [address] [place] [address] PCP - General Family Medicine 06/06/23 documented as of this encounter
--- OUTSIDE RECORDS SUMMARY | 2024-08-19 18:20 | XMS_ITS | Data Portability ---
Author Organization [facility] Pain Managem ent, PAIN OFFICE Address [address] [facility],[address] [address] Care Team Providers Care Fine Craft Artist Name Role Phone BROOKE LUTZ Referring Provider [facility] Primary Care Provider [phone] Assessment Encounter Date Assessment Date Assessment LastModified by Organization Details LastModified Time 04/07/2015 04/07/2015 Rut Morales is a 64? ? ?old woman with complaints of low back pain radiating into both lower extremities with numbness in left foot.? ? ? On exam, she has pain on flexion and a positive straight leg raising test on the right. I recommend a MRI lumbar spine to elucidate the cause of her pain.? ? ? Due to insurance issues, I request the [...] By Organization Details Last Modified Time 04/07/2015 [id number] She was advised against bed rest lasting longer than four days and to continue activities as tolerated. [email or web address] Not available 04/07/2015 15:42:42 Reason for Referral None Reported. Results Created Date Observation Date Name Description Value Unit Range Abnormal Flag Note LastModifiedBy Organization Detail LastModifiedTime 06/16/19 16 MRI, lumba r spine No observ ation record ed. [facility] [address] , [place], [address], 07/13/2015 13:43:24 Result Notes None recorded. Problems Name Problem SNOMED Code Status Onset Date Resolution Date Notes Provider Name and Address Organization Details Recorded Time Lumbosacral radiculitis 75992747 Active Mariano mishra MD [address] [facility] , [address], [place], [address], [place] [facility] 5 15:55:08 Spinal stenosis of lumbar region 23335367 Active Mariano mishra MD [address] , [address], [place], [address], [place] [facility] 5 15:55:08 Displacement of lumbar intervertebral disc without myelopathy 63756365 Active Mariano mishra MD [address] , [address], [place], [address], [place] [facility] 5 15:55:08 Lumbosacral spondylosis without myelopathy 33273365 Active Mariano mishra MD [address] , [address], [place], [address], [place] [facility] [...] Results Imaging Date Name Status LastModified by [facility] Details LastModified Time 06/16/2015 MRI, lumbar spine completed [facility] [address], [place], [address], 07/13/2015 13:43:24 Procedure Notes None recorded. Medical Equipment None Reported. Allergies Allergen ID Allergen Name Allergen Category Reaction Reaction Severity Criticality Documentation Date Start Date Code Code System Note Provider Name and Address Organization Details Recorded Time 99191 Product containin g penicilli n (product) medicatio n Not available Not available Not available 04/07/2015 28884 8001 SNOMED Betty Pricezier null, [place] [facility] [...] Address Organization Details Last Updated DateTime 5 71496.7 029 g 96 % 96 % 157.48 cm 31.1 kg/m2 74 /min 111 mm[Hg] 66 mm[Hg] Betty Corcoran [place] [facility] 5 14:22:21 Social History Question Answer Notes LastModified by Organizat ion Details LastModified Time Tobacco Smoking Status Former Smoker Quit x 30 years Not Available [employer] 02/12/2020 03:16:11 What Is Your Level Of Alcohol Consumption? None [id number] Information not available 02/12/2020 Are You Currently Employed? No [id number] Information not available 02/12/2020 Which Illicit Or Recreational Drugs Have You Used? No [id number] Information not available 02/12/2020 Education 12 Information no t available 04/07/2015 Live Alone Or With Others? With Others Information not available 04/07/2015 Marital Status Informatio n not available 04/07/2015 How Many Years Have You Smoked Tobacco? 15 [id number] Information not available 02/12/2020 Sex: Unknown Functional Status None recorded. Mental Status None recorded. Family History Relationship Description Onset Age of this Age Resolved Age Notes LastModified by Organization Details LastModified Time Mother Heart disease [email or web address] Not available 03/29 15:41:13 Father Heart disease [email or web address] Not available 03/29 15:41:13 Medical History Condition Response Depression Y Hypothyroidism Y Arthritis Y Headache Y Migrane Y GERD/Reflux Y Gynecological HistoryNo gynecological history recorded. Obstetrics History GPAL:G 0 P 0 0 0 0 Past Encounters Encounter ID Performer Location Encounter Start Date Encounter Closed Date Diagnosis/Indication Diagnosis SNOMED-CT Code Diagnosis ICD10 Code Diagnosis Note [id number] Mariano Pratt MD PAIN OFFICE [address] [facility] [address] [place] [address] 04/07/2015 13:31:37 04/13/2015 15:56:09 Displacement of lumbar intervertebral disc without myelopathy 58892057 M51.26 Lumbosacra l radiculitis 20026908 M54.17 Lumbosacra l spondylosis without myelopathy 70916962 M47.817 Spinal parth nosis of lumbar region 28294574 M48.06 Health Concerns Section Related Observation LastModified by Organization Detai ls LastModified Time None Recorded Concern Status LastModified by Organization Details LastModified Time None Recorded Advance Directives Directive None Recorded Payers Encounter Date Sequence Insurance Name Policy Number Policy Clark Covered Member ID Clark Member ID Guarantor Name 04/07/2015 1 MEDICARE [place]: [employer] Rut Morales [id number] Rut Morales Notes Date Note Type [...] numbness in her left foot. Quality:throbbing; tightness;numbess; burning;aching;experimental mechanic spacecraft mping;sharp;tingli ng; She describes the pain in [...] Previous Injections:none Previous PT:did not help Previous live in caregiver:did not help Mariano Pratt MD [address] [facility] , [address], [place], [address], [facility] 04/14/2015 14:48:37 OBGyn Episode No OBEpisode recorded.
--- OUTSIDE RECORDS SUMMARY | 2024-08-19 18:20 | XMS_ITS | Encounter Summary ---
Author Organization [employer] Address [address] [place] [address] Care Team Providers Care Switch Maker Name Role Phone Chela Lynn MD Primary Care Provider Reason for Referral * Imaging (Routine) - Closed Specialty Diagnoses / Procedures Referred By Contac t Referred To Contact Radiology Diagnoses Episodic cluster headache, not intractable Procedures CT Head w/o Contrast Audelia De Luna MD [address] [place] [address] Phone: tel: fax: [address] Phone: tel: fax: Referral ID Status Reason Start Date Expiration Date Visits Re quested Visits Authorized [id number] Closed 08/27/2023 08/26/2024 1 1 Encounter Details Date Type Department Care Team (Late st Contact Info) Description 08/27/2023 Orders Only [facility] [address] [place], [place] [phone] Audelia De Luna MD [address] [place], [place] [phone] Episodic cluster headache, not intractable (Primary Dx) Social History Tobacco Use Types [...] on file documented as of this encounter Procedures Procedure Name Priority Date/Time Associated Diagnosis Comments CBC WITH AUTO DIFFERENTIAL Routine 02/06/2024 11:56 AM EDT Episodic cluster headache, not intractable PROTHROMBIN TIME-INR Routine 02/06/2024 11:56 AM EDT Episodic cluster headache, not intractable C-REACTIVE PROTEIN Routine 02/06/2024 11 :56 AM EDT Episodic cluster headache, not intractable CREATINE KINASE, TOTAL Routine 11:56 AM EDT Episodic cluster headache, not intractable COMPREHENSIVE METABOLIC PANEL Routine 02/06/2024 11:56 AM EDT Episodic cluster headache, not intractable CT HEAD WO CONTRAST Routine 10/08/2023 8 :00 AM EDT Episodic cluster headache, not intractable documented in this encounter Results * (ABNORMAL) C-reactive Protein (02/06/2024 11:56 AM EDT) Pathologist [facility] C Reactive Protein 1.96(H) < or = 0.50 mg/dL [facility] 02/06/2024 11:5 6 AM EDT 02/06/2024 12:02 PM EDT Generic External Data Provider LAB BLOOD ORDERAB LES Final Result Performing Organization Address [facility]/ZIP Co de Phone Number [facility] [address] [place] [phone] * Creatine Kinase, Total (02/06/2024 11:56 AM EDT) [facility] Creatine Kinase Total 79 26 - 140 U/L [facility] 02/06/2024 11:5 6 AM EDT 02/06/2024 12:02 PM EDT Generic External Data Provider LAB BLOOD ORDERAB LES Final Result Performing Organization Address [facility]/ZIP Co de Phone Number [facility] [address] [place] [phone] * Prothrombin Time-INR (02/06/2024 11:56 AM EDT) [facility] Prothrombin Time 12.4 10.9 - 12.4 SEC [facility] INTERNATIONAL NORM RATIO 1.1 0.9 - 1.1 [facility] Comment:INTERNATIONAL NORMAL IZED RATIO (INR) REFERENCE RANGES Reference RangeFor patients not on anticoagulant therapy: 0.9 - 1.1INR ranges for oral anticoagulanttherapy:For prevention and treatment of venous thrombosis and pulmonary embolism: 2.0 - 3.0For acute myocardial infarction with aspirin therapy: 2.0 - 3.0For acute myocardial infarction without aspirin therapy: 3.0 - 4.0For patients with mechanical prosthetic heart valves: 2.5 - 3.5 02/06/2024 11:5 6 AM EDT 02/06/2024 12:02 PM EDT us Generic External Data Provider LAB BLOOD ORDERAB LES Final Result [facility] [address] [place], [place] [phone] * (ABNORMAL) Comprehensive Metabolic Panel (02/06/2024 11:56 AM EDT) Sodium 136 135 - 145 mmol/L [facility] Potassium 4.1 3.3 - 5.1 mmol/L [facility] Chloride 101 96 - 108 mmol/L [facility] Carbon Dioxide 30(H) 22 - 29 mmol/L [facility] Anion Gap 9(L) 12 - 20 [facility] Urea Nitrogen (BUN) 17(H) 9 - 16 mg/dL [facility] Creatinine, Serum 0.69 0.5 - 1.4 mg/dL [facility] Creatinine Clr Calc Pharmacy 60.9 [facility] Comment:Provided height and weight: 157.48 cm,61.689 kg.eGFR (calculated from the MDRD study equation) and eCrCl(calculated from the Cockcroft-Gault equation) are based ondifferent parameters and may not yield comparable results.If eCrCl result is absurd, please check patient'sheight/weight. Estimated Glomerular Filt Rate >60 [facility] Comment:NOTE: For -Am erican individuals, multiply the result by 1.210.Chronic Kidney Disease: Estimated GFR < 60 mL/min/1.46v7Imleoi Kidney Disease: Estimated GFR < 15 mL/min/1.73m2 Glucose 92 60 - 115 mg/dL [facility] Calcium 9.7 8.4 - 10.2 mg/dL [facility] Bilirubin, Total 1.1(H) 0.0 - 1.0 mg/dL [facility] Aspartate Amino Transferase 20 5 - 31 U/L [facility] Alanine Aminotransferase 11 0 - 31 U/L [facility] Total Protein 5.9(L) 6.5 - 8.0 g/dL [facility] Albumin Level 3.7 3.5 - 5.0 g/dL [facility] Alkaline Phosphatase 65 39 - 117 U/L [facility] 02/06/2024 11:5 6 AM EDT 02/06/2024 12:02 PM EDT us Generic External Data Provider LAB BLOOD ORDERAB LES Final Result [facility] [address] [place] [phone] * (ABNORMAL) CBC auto differential (02/06/2024 11:56 AM EDT) White Blood Count 9.6 4.8 - 10.8 X10*3/uL [facility] Red Blood Count 4.64 4.20 - 5.50 X10*6/uL [facility] Hemoglobin 14.2 12.0 - 16.0 g/dl [facility] Hematocrit 43.0 37.0 - 47.0 % [facility] Mean Corpuscular Volume 92.7 80.0 - 98.0 fL [facility] Mean Corpuscular Hemoglobin 30.6 27.0 - 33.0 pg [facility] Mean Corpuscular HGB Conc 33.0 31.0 - 35.0 g/dl [facility] Red Cell Distribution Width 14.4 11.0 - 16.0 % [facility] Platelet Count 317 160 - 400 X10*3/uL [facility] Mean Platelet Volume 9.6 9.4 - 12.3 fL [facility] Neutrophils Percent Auto 66.2 45 - 73 % [facility] Imm Gran Pct Auto 0.4 0.0 - 0.4 % [facility] Lymphocytes Percent Auto 21.5 20 - 40 % [facility] Monocytes Percent Auto 10.7 2 - 11 % [facility] Eosinophils Percent Auto 0.8 0 - 4 % [facility] Basophils Percent Auto 0.4 0 - 2 % [facility] NRBC Pct Auto 0.0 0.0 - 0.2 /100WBC [facility] Neutrophils Absolute Auto 6.4 2.0 - 8.3 x10*3/uL [facility] Imm Gran Abs Auto 0.04(H) 0.00 - 0.03 X10*3/uL [facility] Lymphocytes Absolute Auto 2.1 1.2 - 4.9 X10*3/uL [facility] Monocytes Absolute Auto 1.0 0.1 - 1.2 X10*3/uL [facility] Eosinophils Absolute Auto 0.1 0.0 - 0.4 X10*3/uL [facility] Basophils Absolute Auto 0.0 0.0 - 0.2 X10*3/uL [facility] NRBC Abs Auto 0.000 0.0 - 0.012 X10*3/uL [facility] 02/06/2024 11:5 6 AM EDT 02/06/2024 12:02 PM EDT us Generic External Data Provider LAB BLOOD ORDERAB LES Final Result Performing Organization Address City/State/[facility] Co de Phone Number [facility] [address] [place] [phone] * CT Head w/o Contrast (10/08/2023 8:00 AM EDT) Anatomical Region Laterality Modality Head, Neck Computed Tomogra phy 10/08/2023 8:00 AM EDT Narrative 10/23/2023 5:32 PM EDT ? [facility] ?[address] ?[place] [address] ? CT Scan Report ? Signed ? Patient: Stefanowich,Rut G ?MR#: [id number] ?? [id number] ? : 1950 ?Acct:[id number] ? Age/Sex: 73 / F ?ADM Date: 10/08/23 ? Loc: HO.CT ? Attending Dr: Audelia De Luna MD ? Ordering Physician: Audelia De Luna MD ?? Date of Service: 10/08/23 ?? Procedure(s): CT head/brain wo IV con ?? Accession Number(s): [id number] ? cc: Audelia De Luna MD; Chela Lynn MD ? EXAMINATION: ?? CT HEAD WITHOUT CONTRAST ? CLINICAL INFORMATION: ?? Episodic cluster headaches. ? COMPARISON: ?? None. ? TECHNIQUE: ?? Contiguous axial imaging was performed from the skullbase to vertex ?? without intravenous administration of contrast. ? This CT examination was performed using dose optimization techniques as ?? appropriate, variously including the following: ?? *Automated exposure control ?? *Adjustment of mA and/or kV according to patient size (this includes ?? techniques or standardized protocols for targeted exams where dose is ?? matched to indication/reason for exam; i.e. extremities or head) ?? *Use of iterative reconstruction technique ? DLP: ?? 737 mGy-cm. ? FINDINGS: ?? There is no evidence of acute intracranial hemorrhage or territorial ?? infarction. No abnormal mass effect or midline shift is seen. Gallegos to ?? white matter differentiation is well preserved. No extra-axial fluid ?? collections are identified. ? The ventricles are normal in size. Mild chronic white matter ?? microangiopathic changes are visible. The osseous structures and soft ?? tissues are normal. The mastoid air cells and visualized portions of ?? the paranasal sinuses are well aerated. ? CT/CT head/brain wo IV con ?? IMPRESSION: ?? No acute intracranial pathology. ? Dictated By: ?GEE HAGAN MD ? Signed By: ?<Electronically signed by GEE HAGAN MD in OV> ?10/23/238 ? DD/ 0800 ? TD/TT: ? Cheese Processor: DZ ? Procedure Note Princess, Paco - 10/23/[address] [address] [address] Scan Report Signed Patient: Rut Morales GMR#: [id number] : 1951Acct:[id number] Age/Sex: 73 / FADM Date: 10/08/23 Loc: HO.CT Attending Dr: Audelia De Luna MD Ordering Physician: Audelia De Luna MD Date of Service: 10/08/23 Procedure(s): CT head/brain wo IV con Accession Number(s): [id number] cc: Audelia De Luna MD; Chela Lynn MD EXAMINATION: CT HEAD WITHOUT CONTRAST CLINICAL INFORMATION: Episodic cluster headaches. COMPARISON: None. TECHNIQUE: Contiguous axial imaging was performed from the skullbase to vertex without intravenous administration of contrast. This CT examination was performed using dose optimization techniques as appropriate, variously including the following: *Automated exposure control *Adjustment of mA and/or kV according to patient size (this includes techniques or standardized protocols for targeted exams where dose is matched to indication/reason for exam; i.e. extremities or head) *Use of iterative reconstruction technique DLP: 737 mGy-cm. FINDINGS: There is no evidence of acute intracranial hemorrhage or territorial infarction. No abnormal mass effect or midline shift is seen. Gallegos to white matter differentiation is well preserved. No extra-axial fluid collections are identified. The ventricles are normal in size. Mild chronic white matter microangiopathic changes are visible. The osseous structures and soft tissues are normal. The mastoid air cells and visualized portions of the paranasal sinuses are well aerated. CT/CT head/brain wo IV con IMPRESSION: No acute intracranial pathology. Dictated By: GEE HAGAN MD Signed By: <Electronically signed by GEE HAGAN MD in OV> 10/23/23 1728 DD/ 0800 TD/TT: Cheese Processor: OLEKSANDR us Audelia De Luna MD IMG CT PROCEDURES Final Res ult documented in this encounter Visit Diagnoses Diagnosis Episodic cluster headache, not intractable- Primary documented in this encounter Additional Health Concerns Assessment Noted Time PHQ-9 Depression Total Score: 2 06/06/19 10:37 AM EST documented as of this encounter Care Teams Switch Maker Relationship Specialty Start Date End Date Chela Lynn MD [address] [place] [address] PCP - General Family Medicine 06/06/23 documented as of this encounter
--- OUTSIDE RECORDS SUMMARY | 2024-08-19 18:20 | XMS_ITS | Encounter Summary ---
Author Organization [employer] Address [address] [facility] [address] [place] [address] Care Team Providers Care Certified Composites Technician Name Role Phone Chela Lynn MD Primary Care Provider [phone] Reason for Visit * Reason Onset Date Comments Medication Question 08/23/2023 Encounter Details Date Type Department Care Team ([facility] st Contact Info) Description 08/23/2023 Telephone [facility] MEDICINE [address] [place] [address] Chela Lynn MD [address] [place] [address] Medication Question Social History Tobacco Use Types Packs/Day Years [...] encounter Miscellaneous Notes * Telephone Encounter - Hetal Shepard - 08/27/2023 8:31 AM EDT Tc from pt requesting a call back in regards below. * Telephone Encounter - Nathan Carvajal - 08/23/2023 12:32 PM EDT Tc from pt calling in regards to Semaglutide-Weight Management (Wegovy) 0.25 MG/0.5ML solution auto-injector. Pt started injection on saturday and stated she is to follow up in 4 weeks with pcp but hasn't received a call to schedule. Pt also stated she when se attempted the injection it didn't work properly and is requesting a nurse visit to help with the injection. Please contact pt at [phone]. documented in this encounter Plan of Treatment Not on file documented as of this encounter Visit Diagnoses Not on filedocumented in this encounter Additional Health Concerns Assessment Noted Time PHQ-9 Depression Total Score: 2 06/06/19 24 10:37 AM EST documented as of this encounter Care Teams Certified Composites Technician Relationship Specialty Start Date End Date Chela Lynn MD [address] [place] [address] PCP - General Family Medicine 06/06/23 documented as of this encounter
== END 2024-08-19 15:45 | disposition home or self-care (01) ==
LOC: HO.CHCLDS 15:44
PROVIDERS: Visit Provider Internal Medicine
DX: Z77.120 Contact with and (suspected) exposure to mold (toxic) (principal)
CPT/HCPCS: 36415

== ENCOUNTER 2024-08-25 09:40 | Outpatient (AMB) | payer MEDICARE, SELFPAY ==
--- NOTE | 2024-08-25 09:43 | A.OFFVIS_ITS ---
Vital Signs 08/25/24 09:45 Height 5 ft 2 in Weight 124 lb BMI 22.7 BP 108/50 L Blood Pressure Location Rt brachial Position Sitting Pulse 68 Pulse Source Pulse Oximeter Pulse Oximetry (%) 97 Oxygen Delivery Method Room Air Intake Visit Reasons: Colonoscopy screening Intake Note: NEW PATIENT for repeat colo screening. Chief Complaint; Pt reports most recent colo was in 2019. No supporting documentation found. It was found that pt had colo in [address] Monae. Pt does have sx including constipation w/o signs of hemorrhoids, generalized GI upset / pain. Pt denies any additional sx or concerns at this time. Children'S Service Worker Required: No Accompanied by: Spouse Allergies penicillin V Allergy (Unknown, Verified 08/25/24 09:56) Rash morphine Adverse Reaction (Verified 08/25/24 09:56) Vomiting Medication List - Last Reconciled 08/25/24 by Yeny Rey, DISBURSEMENT CLERK- alendronate 70 mg PO QWEEK allopurinol 100 mg PO DAILY gabapentin mg PO levothyroxine mcg PO trazodone 100 mg PO BEDTIME walker As directed HPI HPI Colonoscopy screening: Details: 74 year old? female here today for pre colonoscopy screening.? Patient was sent to us by her PCP.? Last colonoscopy in [address] Monae.? Patient denies any gastrointestinal symptoms in the past or at present.? Patient however reports constipation. Sometimes no bowel movements for 2-3 days. Patient uses laxatives as needed. Denies any personal or family history of gastrointestinal disease or CRC.? Denies history of difficulty with sedation or anesthesia in the past.? Negative for history of sleep apnea.? Denies any history of cardiac, renal, pulmonary, or hepatic disease.?? No history of infectious? diseases like hepatitis A, B, C, HIV or tuberculosis.? Patient is not on any anticoagulation PFSH Medical History Gout Hypothyroidism Surgical History Hx of colonoscopy Status post breast reduction Hx of cholecystectomy Social History Patient Tobacco Use Status: Tobacco use Unknown Review of Systems Const Denies weight gain and Denies weight loss ENT Reports no additional complaints, Denies dysphagia and Denies odynophagia Card Reports no additional complaints Resp Reports no additional complaints GI Reports abdominal pain (Occasional cramping when constipated), Denies belching, Denies melena, Denies bloating, Denies change in bowel habits, Reports constipation, Denies dysphagia, Denies excessive flatus, Denies dyspepsia, Denies heartburn, Denies diarrhea, Denies loose stools, Denies nausea, Denies odynophagia and Denies vomiting Musc Reports no additional complaints Neuro Reports no additional complaints Psych Reports no additional complaints Endo Reports no additional complaints Physical Exam Vital Signs: Last Vital Signs Pulse 68 08/25/24 09:45 BP 108/50 L 08/25/24 09:45 Pulse Ox 97 08/25/24 09:45 Oxygen Delivery Method Room Air 08/25/24 09:45 BMI result Body Mass Index 22.7 Const General: healthy appearing, no acute distress and well developed Nutritional Appearance: well nourished Orientation/consciousness: patient oriented x3 Resp Effort & Inspection: normal respiratory effort, able to speak in complete sentences, no tracheal deviation and symmetric chest movement Auscultation: clear to auscultation bilaterally Cardio Rate: regular rate GI Inspection: Yes normal to inspection and No distended Palpation (GI): Soft to palpation, not firm, nontender and No hepatosplenomegaly present Auscultation: normal bowel sounds General: Yes no CVA tenderness Back/Spine/Pelvis Back: no CVA tenderness Skin General skin exam: elasticity normal, turgor normal and dry skin Neuro General: patient oriented x3 Psych Appearance: grossly normal Mental Status: mental status grossly normal Assessment & Plan Assessment & Plan (1) Screen for colon cancer: Code(s): Z12.11 - Encounter for screening for malignant neoplasm of colon Plan Patient denies any cardiac or respiratory symptoms.? Reports constipation, uses [id number] laxative as needed. Nothing daily. Cramping occasionally with bowel movements. Script for senna send. Denies any issues with anesthesia in the past.? Denies any history of sleep apnea.? No history infectious diseases in the past or present.? Not on any anticoagulation therapy.? No family or personal history of colon cancer or polyps.? Patient denies melena, hematochezia, unintentional weight loss or ribbon like stools.? Discussed at length the pre- procedure,? prep, diet & medications as well as what to expect prior, during and after the procedure.?? Stressed the importance of good bowel prep.? Recommended the use of Vaseline or Calmoseptine OTC & baby wipes with bowel movements to promote comfort.? ?Patient verbalizes understanding and agrees to plan of care.? She was given the opportunity to ask questions and all questions answered.? We will see her after the procedure.? Medications: New bisacodyl (Dulcolax (bisacodyl)) take 4 tabs at noon the day before your colonoscopy 20 mg (4 x 5 mg) PO ONCE 1 day 4 tabs 0RF Z12.11 - Encounter for screening for malignant neoplasm of colon polyethylene glycol 3350 (Miralax) As directed by gastro[facility]ology department at [facility] 238 grams PO ONCE 238 grams 0RF Z12.11 - Encounter for screening for malignant neoplasm of colon sennosides (Natural Senna Laxative) 17.2 mg (2 x 8.6 mg) PO BEDTIME 60 tabs 3RF constipation K59.00 - Constipation, unspecified Coding Level of Care Code New Pt Level 3 (44773) Diagnoses Screen for colon cancer Z12.11 Time Spent (min) 40 Comment 30 minutes spent with patient and additional 10 minutes spent reviewing her records
[2024-08-25 09:45] VITALS: BP 108/50; PULSE 68; O2SAT 97; BMI 22.7
--- OUTSIDE RECORDS SUMMARY | 2024-08-25 10:43 | XMS_ITS | Encounter Summary ---
Author Organization [employer] Address [address] [facility] [address] [place] [address] Care Team Providers Care Automotive Production Worker Name Role Phone Chela Lynn MD Primary Care Provider [phone] Encounter Details Date Type Department Care Team ([facility] st Contact Info) Description 08/04/2024 Orders Only [facility] [address] [place], [place] [id number] Audelia De Luna MD [address] [place] [address] Acquired hypothyroidism (Primary Dx) Social History Tobacco [...] documented as of this encounter Care Teams Automotive Production Worker Relationship Specialty Start Date End Date Chela Lynn MD [address] [place] [address] PCP - General Family Medicine 06/06/23 documented as of this encounter
--- OUTSIDE RECORDS SUMMARY | 2024-08-25 10:43 | XMS_ITS | Encounter Summary ---
Author Organization [employer] Address [address] [place] [address] [address] [place] [address] Care Team Providers Care Manager Utilities Name Role Phone Chela Lynn MD Primary Care Provider [phone] Reason for Visit * Reason Comments Med Refill Encounter Details Date Type Department Care Team ([facility] Contact Info) Description 04/24/2024 Refill [facility] [address] [place], [place] [phone] Chela Lynn MD [address] [place] [address] Social History Tobacco Use Types Packs/Day Years [...] documented as of this encounter Care Teams Manager Utilities Relationship Specialty Start Date End Date Chela Lynn MD [address] [place] [address] PCP - General Family Medicine 06/06/23 documented as of this encounter
--- OUTSIDE RECORDS SUMMARY | 2024-08-25 10:43 | XMS_ITS | Encounter Summary ---
Author Organization [employer] Address [address] [facility] [address] [place] [address] Care Team Providers Care Social Science Research Assistant Name Role Phone Chela Lynn MD Primary Care Provider [phone] Reason for Visit * Reason Onset Date Comments Nurse Triage 07/20/2024 Encounter Details Date Type Department Care Team ([facility] st Contact Info) Description 07/20/2024 Telephone [facility] [address] [place] [address] Chela Lynn MD [address] [place] [address] Nurse Triage Social History Tobacco Use Types [...] caller accepted this outcome. Contact pt at [phone] documented in this encounter Plan of Treatment Not on file documented as of this encounter Visit Diagnoses Not on filedocumented in this encounter Additional Health Concerns Assessment Noted Time PHQ-9 Depression Total Score: 2 06/06/19 10:37 AM EST documented as of this encounter Care Teams Social Science Research Assistant Relationship Specialty Start Date End Date Chela Lynn MD [address] [place] [address] PCP - General Family Medicine 06/06/23 documented as of this encounter
--- OUTSIDE RECORDS SUMMARY | 2024-08-25 10:44 | XMS_ITS | Encounter Summary ---
Author Organization [employer] Address [address] [facility] [address] [place] [address] Care Team Providers Care Head Operator Sulfide Name Role Phone Chela Lynn MD Primary Care Provider [phone] Reason for Visit * Reason Onset Date Comments Med Refill 04/01/2024 Encounter Details Date Type Department Care Team ([facility] st Contact Info) Description 04/01/2024 Telephone [facility] [address] [place] [address] Chela Lynn MD [address] [place] [address] Med Refill Social History Tobacco Use Types [...] 04/01/2024 3:54 PM EST Medication sent to [facility] on 02/03/24 #180 with 1 refill. * Telephone Encounter - Lucy Anderson - 04/01/2024 3:52 PM EST TC from pt requesting medication refill. Medications needing refill : Oyster Shell Calcium + D3 500-10 MG-MCG tablet To be sent to: [facility] documented in this encounter Plan of Treatment Not on file documented as of this encounter Visit Diagnoses Not on filedocumented in this encounter Additional Health Concerns Assessment Noted Time PHQ-9 Depression Total Score: 2 06/06/19 10:37 AM EST documented as of this encounter Care Teams Head Operator Sulfide Relationship Specialty Start Date End Date Chela Lynn MD [address] [place] [address] PCP - General Family Medicine 06/06/23 documented as of this encounter
--- OUTSIDE RECORDS SUMMARY | 2024-08-25 10:44 | XMS_ITS | Data Portability ---
Author Organization [facility], PAIN OFFICE Address [address] [facility],[address] [address] Care Team Providers Care Clinical Data Coordinator Name Role Phone BROOKE LUTZ Referring Provider [facility] Primary Care Provider [phone] Assessment Encounter Date Assessment Date Assessment LastModified [...] By Organization Details Last Modified Time 04/07/2015 52994 She was advised against bed rest lasting longer than four days and to continue activities as tolerated. [email or web address] Not available 04/07/2015 15:42:42 Reason for Referral None Reported. Results Created Date Observation Date Name Description Value Unit Range Abnormal Flag Note LastModifiedBy Organization Detail LastModifiedTime 06/16/19 16 MRI, lumba r spine No observ ation record ed. [facility] [address] , [place], [address], 07/13/2015 13:43:24 Result Notes None recorded. Problems Name Problem SNOMED Code Status Onset Date Resolution Date Notes Provider Name and Address Organization Details Recorded Time Lumbosacral radiculitis 92300956 Active Mariano mishra MD [address] [facility] , [address], [place], [address], [place] [facility] 5 15:55:08 Spinal stenosis of lumbar region 46835524 Active Mariano mishra MD [address] , [address], [place], [address], [place] [facility] 5 15:55:08 Displacement of lumbar intervertebral disc without myelopathy 98858746 Active Mariano mishra MD [address] , [address], [place], [address], [place] [facility] 5 15:55:08 Lumbosacral spondylosis without myelopathy 02914316 Active Mariano mishra MD [address] , [address], [place], [address], [place] [facility] [...] Imaging Date Name Status LastModified by Organ [facility] Details LastModified Time 06/16/2015 MRI, lumbar spine completed [facility] [address], [place], [address], 07/13/2015 13:43:24 Procedure Notes None recorded. Medical Equipment None Reported. Allergies Allergen ID Allergen Name Allergen Category Reaction Reaction Severity Criticality Documentation Date Start Date Code Code System Note Provider Name and Address Organization Details Recorded Time 24714 Product containin g penicilli n (product) medicatio n Not available Not available Not available 04/07/2015 90031 8001 SNOMED Betty Pricezier null, [place] - [...] Address Organization Details Last Updated DateTime 5 59209.7 029 g 96 % 96 % 157.48 cm 31.1 kg/m2 74 /min 111 mm[Hg] 66 mm[Hg] Betty Corcoran [place] [facility] 5 14:22:21 Social History Question Answer Notes LastModified by Organizat ion Details LastModified Time Tobacco Smoking Status Former Smoker Quit x 30 years Not Available [employer] 02/12/2020 03:16:11 What Is Your Level Of Alcohol Consumption? None [id number] Information not available 02/12/2020 Are You Currently Employed? No [id number] Information not available 02/12/2020 Which Illicit Or Recreational Drugs Have You Used? No [id number] Information not available 02/12/2020 Education 12 Information no t available 04/07/2015 Live Alone Or With Others? With Others Information not available 04/07/2015 Marital Status Informatio n not available 04/07/2015 How Many Years Have You Smoked Tobacco? 15 [id number] Information not available 02/12/2020 Sex: Unknown Functional Status None recorded. Mental Status None recorded. Family History Relationship Description Onset Age of this Age Resolved Age Notes LastModified by Organization Details LastModified Time Mother Heart disease [email or web address] Not available 03/29 15:41:13 Father Heart disease [email or web address] Not available 03/29 15:41:13 Medical History Condition Response Headache Y Migrane Y Arthritis Y GERD/Reflux Y Depression Y Hypothyroidism Y Gynecological HistoryNo gynecological history recorded. Obstetrics History GPAL:G 0 P 0 0 0 0 Past Encounters Encounter ID Performer Location Encounter Start Date Encounter Closed Date Diagnosis/Indication Diagnosis SNOMED-CT Code Diagnosis ICD10 Code Diagnosis Note [id number] Mariano Pratt MD PAIN OFFICE [address] [facility] [address] [place] [address] 04/07/2015 13:31:37 04/13/2015 15:56:09 Displacement of lumbar intervertebral disc without myelopathy 24616643 M51.26 Lumbosacra l radiculitis 15341543 M54.17 Lumbosacra l spondylosis without myelopathy 38945912 M47.817 Spinal parth nosis of lumbar region 45537456 M48.06 Health Concerns Section Related Observation LastModified by Organization Detai ls LastModified Time None Recorded Concern Status LastModified by Organization Details LastModified Time None Recorded Advance Directives Directive None Recorded Payers Encounter Date Sequence Insurance Name Policy Number Policy Clark Covered Member ID Clark Member ID Guarantor Name 04/07/2015 1 [place]ICARE [place]: [employer] Rut Morales [id number] A Rut Morales Notes Date Note Type [...] numbness in her left foot. 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
--- OUTSIDE RECORDS SUMMARY | 2024-08-25 10:44 | XMS_ITS | Encounter Summary ---
Author Organization [employer] Address [address] [facility] [address] [place] [address] Care Team Providers Care Financial Services Auditor Name Role Phone Chela Lynn MD Primary Care Provider [phone] Reason for Visit * Reason Onset Date Comments Results 02/19/2024 Encounter Details Date Type Department Care Team ([facility] st Contact Info) Description 02/19/2024 Telephone [facility] [address] [place] [address] Chela Lynn MD [address] [place] [address] Results Social History Tobacco Use Types Packs/Day [...] a follow up. Please contact pt at [phone]. * Telephone Encounter - Nathan Carvajal - 02/19/2024 9:41 AM EDT TC from pt requesting call back regarding Results. Type of results: Labs Date when done: 02/18/24 Facility: [facility] Labs - Type of results: XR Date when done: 02/18/24 Facility: [facility] documented in this encounter Plan of Treatment Not on file documented as of this encounter Visit Diagnoses Not on filedocumented in this encounter Additional Health Concerns Assessment Noted Time PHQ-9 Depression Total Score: 2 06/06/19 10:37 AM EST documented as of this encounter Care Teams Financial Services Auditor Relationship Specialty Start Date End Date Chela Lynn MD [address] [place] [address] PCP - General Family Medicine 06/06/23 documented as of this encounter
--- OUTSIDE RECORDS SUMMARY | 2024-08-25 10:44 | XMS_ITS | Encounter Summary ---
Author Organization [employer] Address [address] [place] [id number] Care Team Providers Care Assault [employer] Coxswain Name Role Phone Chela Lynn MD Primary Care Provider [phone] Reason for Referral * Imaging (Routine) - Closed Specialty Diagnoses / Procedures Referred By Contac t Referred To Contact Radiology Diagnoses Episodic cluster headache, not intractable Procedures CT Head w/o Contrast Audelia De Luna MD [address] [place] [address] Phone: tel: fax: [address] Phone: tel: fax: Referral ID Status Reason Start Date Expiration Date Visits Re quested Visits Authorized [id number] Closed 08/27/2023 08/26/2024 1 1 Encounter Details Date Type Department Care Team (Late st Contact Info) Description 08/27/2023 Orders Only [facility] [address] [place], [place] [phone] Audelia De Luna MD [address] [place], [place] [phone] Episodic cluster headache, not intractable (Primary Dx) [...] C-reactive Protein (02/06/2024 11:56 AM EDT) Pathologist [facility] C Reactive Protein 1.96(H) < or = 0.50 mg/dL [facility] 02/06/2024 11:5 6 AM EDT 02/06/2024 12:02 PM EDT Generic External Data Provider LAB BLOOD ORDERAB LES Final Result Performing Organization Address [facility]/ZIP Co de Phone Number [facility] [address] [place] [phone] * Creatine Kinase, Total (02/06/2024 11:56 AM EDT) [facility] Creatine Kinase Total 79 26 - 140 U/L [facility] 02/06/2024 11:5 6 AM EDT 02/06/2024 12:02 PM EDT Generic External Data Provider LAB BLOOD ORDERAB LES Final Result Performing Organization Address [facility]/ZIP Co de Phone Number [facility] [address] [place] [phone] * Prothrombin Time-INR (02/06/2024 11:56 AM EDT) [facility] Prothrombin Time 12.4 10.9 - 12.4 SEC [facility] INTERNATIONAL NORM RATIO 1.1 0.9 - 1.1 [facility] Comment:INTERNATIONAL NORMAL IZED RATIO (INR) REFERENCE [...] Provider LAB BLOOD ORDERAB LES Final Result [facility] [address] [place], [place] [phone] * (ABNORMAL) Comprehensive Metabolic Panel (02/06/2024 11:56 AM EDT) Sodium 136 135 - 145 mmol/L [facility] Potassium 4.1 3.3 - 5.1 mmol/L [facility] Chloride 101 96 - 108 mmol/L [facility] Carbon Dioxide 30(H) 22 - 29 mmol/L [facility] Anion Gap 9(L) 12 - 20 [facility] Urea Nitrogen (BUN) 17(H) 9 - 16 mg/dL [facility] Creatinine, Serum 0.69 0.5 - 1.4 mg/dL [facility] Creatinine Clr Calc Pharmacy 60.9 [facility] Comment:Provided height and weight: 157.48 cm,61.689 kg.eGFR (calculated from the MDRD study equation) and eCrCl(calculated from the Cockcroft-Gault equation) are based ondifferent parameters and may not yield comparable results.If eCrCl result is absurd, please check patient'sheight/weight. Estimated Glomerular Filt Rate >60 [facility] Comment:NOTE: For -Am erican individuals, multiply the result by 1.210.Chronic Kidney Disease: Estimated GFR < 60 mL/min/1.52g9Bmijey Kidney Disease: Estimated GFR < 15 mL/min/1.73m2 Glucose 92 60 - 115 mg/dL [facility] Calcium 9.7 8.4 - 10.2 mg/dL [facility] Bilirubin, Total 1.1(H) 0.0 - 1.0 mg/dL [facility] Aspartate Amino Transferase 20 5 - 31 U/L [facility] Alanine Aminotransferase 11 0 - 31 U/L [facility] Total Protein 5.9(L) 6.5 - 8.0 g/dL [facility] Albumin Level 3.7 3.5 - 5.0 g/dL [facility] Alkaline Phosphatase 65 39 - 117 U/L [facility] 02/06/2024 11:5 6 AM EDT 02/06/2024 12:02 PM EDT us Generic External Data Provider LAB BLOOD ORDERAB LES Final Result [facility] [address] [place] [phone] * (ABNORMAL) CBC auto differential (02/06/2024 11:56 AM EDT) White Blood Count 9.6 4.8 - 10.8 X10*3/uL [facility] Red Blood Count 4.64 4.20 - 5.50 X10*6/uL [facility] Hemoglobin 14.2 12.0 - 16.0 g/dl [facility] Hematocrit 43.0 37.0 - 47.0 % [facility] Mean Corpuscular Volume 92.7 80.0 - 98.0 fL [facility] Mean Corpuscular Hemoglobin 30.6 27.0 - 33.0 pg [facility] Mean Corpuscular HGB Conc 33.0 31.0 - 35.0 g/dl [facility] Red Cell Distribution Width 14.4 11.0 - 16.0 % [facility] Platelet Count 317 160 - 400 X10*3/uL [facility] Mean Platelet Volume 9.6 9.4 - 12.3 fL [facility] Neutrophils Percent Auto 66.2 45 - 73 % [facility] Imm Gran Pct Auto 0.4 0.0 - 0.4 % [facility] Lymphocytes Percent Auto 21.5 20 - 40 % [facility] Monocytes Percent Auto 10.7 2 - 11 % [facility] Eosinophils Percent Auto 0.8 0 - 4 % [facility] Basophils Percent Auto 0.4 0 - 2 % [facility] NRBC Pct Auto 0.0 0.0 - 0.2 /100WBC [facility] Neutrophils Absolute Auto 6.4 2.0 - 8.3 x10*3/uL [facility] Imm Gran Abs Auto 0.04(H) 0.00 - 0.03 X10*3/uL [facility] Lymphocytes Absolute Auto 2.1 1.2 - 4.9 X10*3/uL [facility] Monocytes Absolute Auto 1.0 0.1 - 1.2 X10*3/uL [facility] Eosinophils Absolute Auto 0.1 0.0 - 0.4 X10*3/uL [facility] Basophils Absolute Auto 0.0 0.0 - 0.2 X10*3/uL [facility] NRBC Abs Auto 0.000 0.0 - 0.012 X10*3/uL [facility] 02/06/2024 11:5 6 AM EDT 02/06/2024 12:02 PM EDT us Generic External Data Provider LAB BLOOD ORDERAB LES Final Result Performing Organization Address City/State/[facility] Co de Phone Number [facility] [address] [place] [phone] * CT Head w/o Contrast (10/08/2023 8:00 AM EDT) Anatomical Region Laterality Modality Head, Neck Computed Tomogra phy 10/08/2023 8:00 AM EDT Narrative 10/23/2023 5:32 PM EDT ? [facility] ?[address] ?[place] [address] ? CT Scan Report ? Signed ? Patient: Stefanowich,Rut G ?MR#: [id number] ?? [id number] ? : 1950 ?Acct:[id number] ? Age/Sex: 73 / F ?ADM Date: 10/08/23 ? Loc: HO.CT ? Attending Dr: Audelia De Luna MD ? Ordering Physician: Audelia De Luna MD ?? Date of Service: 10/08/23 ?? Procedure(s): CT head/brain wo IV con ?? Accession Number(s): [id number] ? cc: Audelia De Luna MD; Chela [...] ?10/23/238 ? DD/ 0800 ? TD/TT: ? Office Specialist: DZ ? Procedure Note Princess, Paco - 10/23/[address] [address] [place] Scan Report Signed Patient: Rut Morales GMR#: [id number] : 1951Acct:[id number] Age/Sex: 73 / FADM Date: 10/08/23 Loc: HO.CT Attending Dr: Audelia De Luna MD Ordering Physician: Audelia De Luna MD Date of Service: 10/08/23 Procedure(s): CT head/brain wo IV con Accession Number(s): [id number] cc: Audelia De Luna MD; Chela Lynn [...] in OV> 10/23/23 1728 DD/ 0800 TD/TT: Office Specialist: OLEKSANDR us Audelia De Luna MD IMG CT PROCEDURES Final Res ult documented in this encounter Visit Diagnoses Diagnosis Episodic cluster headache, not intractable- Primary documented in this encounter Additional Health Concerns Assessment Noted Time PHQ-9 Depression Total Score: 2 06/06/19 10:37 AM EST documented as of this encounter Care Teams Assault [employer] Coxswain Relationship Specialty Start Date End Date Chela Lynn MD [address] [place] [address] PCP - General Family Medicine 06/06/23 documented as of this encounter
--- OUTSIDE RECORDS SUMMARY | 2024-08-25 10:44 | XMS_ITS | Clinical Summary ---
Author Organization [employer] Address [address] [place] [address] Care Team Providers Care Ball Mill Mixer Name Role Phone Chela Lynn MD Primary Care Provider [phone] Allergies Active Allergy Reactions Criticality Noted Date [...] Relevant Medication Mometasone (Nasonex) 50 MCG/ACT Nasal [place] Physical exam, annual 07/23/2023 Assessment & Plan [...] recommended reduction of 20-30% of maintenance calories; woods rider referral offered. Recommended to decrease soda and [...] 06/0606/06/2023 Osteopenia 06/06/2023 06/06/2023 Overview (06/06/2023): Dexa 2015 osteopenialast dexa 2013 Spinal stenosis of lumbar region 06/06/2023 06/06/2023 Shoulder pain 06/06/2023 06/06/2023 head lumps 06/06/2023 Assessment & Plan (06/12/2023 10:27 AM EST): Unknown if variation of normal scalp folds, distressing to patient will refer to dermatology Encounters Date Type Department Care Team Description 08/25/2024 Refill [facility] [address] [place] [address] Chela Lynn MD Lumbosacral spondylosis without myelopathy 08/19/2024 3:15 PM EDT Office Visit [facility] [address] [place] [address] Audelia De Luna MD Mold suspected exposure (Primary Dx) 08/19/2024 Travel 08/04/2024 Telephone [facility] [address] [place] [address] Audelia De Luna MD 08/04/2024 Orders Only [facility] [address] [place] [address] Audelia De Luna MD Acquired hypothyroidism (Primary Dx) 08/03/2024 Telephone [facility] [address] [place] [address] Chela Lynn MD Nurse Triage 07/29/2024 Telephone [facility] [address] [place] [address] Audelia Lees MD Results ( Audelia De Luna MD [facility] Nurses/Please call. Ms Rut Morales has hypoproteinemia which could explain the swelling of the lower limbs. I recommend to increase her protein intake ( Seeds, Nuts, legumes, beans etc if tolerated. ) I would repeat the blood work in 3 months to assess improvement. It's reassuring to notice that pt is not losing protein in her urine. /) 07/27/2024 Orders Only [facility] [address] [place] [address] Audelia De Luna MD 07/24/2024 3:45 PM EDT Office Visit [facility] [address] [place] [address] Audelia De Luna MD Edema, lower extremity (Primary Dx); Paresthesias 07/24/2024 Travel 07/20/2024 Telephone [facility] [address] [place] [address] Chela Lynn MD Nurse Triage 07/14/2024 Telephone [facility] [address] [place] [address] Chela Lynn MD Prior Authorization 07/07/2024 3:15 PM EDT Office Visit [facility] [address] [place] [address] Audelia De Luna MD Class 1 obesity with serious comorbidity in adult, unspecified BMI, unspecified obesity type (Primary Dx) 07/07/2024 Travel 06/30/2024 Telephone [facility] [address] [place] [address] Chela Lynn MD Medication Question 06/17/2024 Refill [facility] [address] [place] [address] Chela Lynn MD Hypothyroidism, unspecified type 06/04/2024 Telephone [facility] [address] [place] [address] Chela Lynn MD 06/02/2024 Telephone [facility] [address] [place], [place] [phone] Chela Lynn MD Medication Question; Prior Authorization from Last 3 Months Immunizations Name Administration [...] EDT Narrative 07/27/2024 11:38 AM EDT ? [facility] ?[address] ?[place] [address] ?XRay Report ? Signed ? Patient: Stefanowich,Rut G ?MR#: MM ?? [id number] ? : 1950 ?Acct:[id number] ? Age/Sex: 74 / F ?ADM Date: 07/27/24 ? Loc: HO.CHCLDS ? Attending Dr: Audelia De Luna MD ? Ordering Physician: Audelia De Luna MD ?? Date of Service: 07/27/24 ?? Procedure(s): XR chest 2V ?? Accession Number(s): [id number] ? cc: Audelia De Luna MD ? [...] ? DD/ 4 ? TD/TT: 07/27/[address] ? Veneer Cutter: ? Procedure Note Princess, Paco - 07/27/[address] [address] XRay Report Signed Patient: Rut Morales GMR#: [id number] : 9Acct:[id number] Age/Sex: 74 / FADM Date: 07/27/24 Loc: HO.CHCLDS Attending Dr: Audelia De Luna MD Ordering Physician: Audelia De Luna MD Date of Service: 07/27/24 Procedure(s): XR chest 2V Accession Number(s): [id number] cc: Audelia De Luna MD EXAMINATION: XR [...] OV> 07/27/24 1136 DD/ 4 TD/TT: 07/27/24929 Veneer Cutter: us Audelia De Luna MD IMG XR PROCEDURES Final Res ult * Vitamin B12/Folate, Serum Panel (07/27/2024 9:12 AM EDT) Vitamin B12 261 200 - 900 pg/mL [facility] Comment:NORMAL 200-900 PG/ML INDETERMINATE 160-199 PG/ML DEFICIENT < 160 PG/ML Folate 13.9 > or = 4.0 ng/mL [facility] Comment:Reference Values:> o r = 4.0 ng/mL< 4.0 ng/mL suggests folate deficiency Methotrexate, aminopterin and folinic acid(leucovorin) are chemotherapeutic agents whose molecularstructures are similar to folate; therefore, the Architectfolate assay cannot be used for patients using these drugs. Blood Venous blood specimen / Unknown 07/27/2024 9:12 AM EDT 07/27/2024 9:12 AM EDT us Audelia De Luna MD LAB BLOOD ORDERABLES Final Result [facility] [address] [place] [phone] * (ABNORMAL) TSH W/Reflex to FT4 (07/27/2024 9:12 AM EDT) TSH reflex Free T4 4.55(H) 0.32 - 4.0 uIU/mL [facility] Blood Venous blood specimen / Unknown 07/27/2024 9:12 AM EDT 07/27/2024 9:12 AM EDT us Audelia De Luna MD LAB BLOOD ORDERABLES Final Result [facility] [address] [place] [address] [phone] * CBC auto differential (07/27/2024 9:12 AM EDT) White Blood Count 7.5 4.8 - 10.8 X10*3/uL [facility] Red Blood Count 4.55 4.20 - 5.50 X10*6/uL [facility] Hemoglobin 13.6 12.0 - 16.0 g/dl [facility] Hematocrit 42.6 37.0 - 47.0 % [facility] Mean Corpuscular Volume 93.6 80.0 - 98.0 fL [facility] Mean Corpuscular Hemoglobin 29.9 27.0 - 33.0 pg [facility] Mean Corpuscular HGB Conc 31.9 31.0 - 35.0 g/dl [facility] Red Cell Distribution Width 15.0 11.0 - 16.0 % [facility] Platelet Count 328 160 - 400 X10*3/uL [facility] Mean Platelet Volume 9.7 9.4 - 12.3 fL [facility] Neutrophils Percent Auto 60.9 45 - 73 % [facility] Imm Gran Pct Auto 0.4 0.0 - 0.4 % [facility] Lymphocytes Percent Auto 27.2 20 - 40 % [facility] Monocytes Percent Auto 8.4 2 - 11 % [facility] Eosinophils Percent Auto 2.3 0 - 4 % [facility] Basophils Percent Auto 0.8 0 - 2 % [facility] NRBC Pct Auto 0.0 0.0 - 0.2 /100WBC [facility] Neutrophils Absolute Auto 4.6 2.0 - 8.3 x10*3/uL [facility] Imm Gran Abs Auto 0.03 0.00 - 0.03 X10*3/uL [facility] Lymphocytes Absolute Auto 2.1 1.2 - 4.9 X10*3/uL [facility] Monocytes Absolute Auto 0.6 0.1 - 1.2 X10*3/uL [facility] Eosinophils Absolute Auto 0.2 0.0 - 0.4 X10*3/uL [facility] Basophils Absolute Auto 0.1 0.0 - 0.2 X10*3/uL [facility] NRBC Abs Auto 0.000 0.0 - 0.012 X10*3/uL [facility] Blood Venous blood specimen / Unknown 07/27/2024 9:12 AM EDT 07/27/2024 9:12 AM EDT us Audelia De Luna MD LAB BLOOD ORDERABLES Final Result [facility] [address] [place] [phone] * T4, Free (07/27/2024 9:12 AM EDT) Free T4 (Free Thyroxine) 0.96 0.71 - 1.85 ng/dL [facility] 07/27/2024 9:12 AM EDT 07/27/2024 9:12 AM EDT us Audelia De Luna MD LAB BLOOD ORDERABLES Final Result [facility] [address] [place] [phone] * Vitamin B1 (07/27/2024 9:12 AM EDT) Vitamin B1 15 8 - 30 nmol/L [facility] Comment:Vitamin supplementat ion within 24 hours prior toblood draw may affect the accuracy of the results.This test was developed and its analytical performancecharacteristics have been determined by [employer] [place], [place]. It hasnot been cleared or approved by the U.S. Food and DrugAdministration. This assay has been validated pursuantto the CLIA regulations and is used for clinicalpurposes.THIS TEST WAS PERFORMED AT:[facility] [id number] [place] [address]OFAGPAFJEN MARIE MD,PHD Blood Venous blood specimen / Unknown 07/27/2024 9:12 AM EDT 07/27/2024 9:12 AM EDT Audelia De Luna MD LAB BLOOD ORDERABLES Final Result [facility] [address] [place] [phone] * Vitamin B6 (07/27/2024 9:12 AM EDT) Vitamin B6 3.4 2.1 - 21.7 ng/mL [facility] Comment:Vitamin supplementat ion within 24 hours prior toblood draw may affect the accuracy of the results.This test was developed and its analytical performancecharacteristics have been determined by [employer], [place]. It hasnot been cleared or approved by the U.S. Food and DrugAdministration. This assay has been validated pursuantto the CLIA regulations and is used for clinicalpurposes.THIS TEST WAS PERFORMED AT:[employer] [place] [address]QADLDSKJEN MARIE MD,PHD Blood Venous blood specimen / Unknown 07/27/2024 9:12 AM EDT 07/27/2024 9:12 AM EDT us Audelia De Luna MD LAB BLOOD ORDERABLES Final Result [facility] [address] [place] [address] [phone] * (ABNORMAL) Comprehensive Metabolic Panel (07/27/2024 9:12 AM EDT) Sodium 143 135 - 145 mmol/L [facility] Potassium 4.4 3.3 - 5.1 mmol/L [facility] Chloride 109(H) 96 - 108 mmol/L [facility] Carbon Dioxide 29 22 - 29 mmol/L [facility] Anion Gap 9(L) 12 - 20 [facility] Urea Nitrogen (BUN) 14 9 - 16 mg/dL [facility] Creatinine, Serum 0.66 0.5 - 1.4 mg/dL [facility] Estimated Glomerular Filt Rate >60 [facility] Comment:Chronic Kidney Disea se: Estimated GFR < 60 mL/min/1.63a7Hfvqdz Kidney Disease: Estimated GFR < 15 mL/min/1.73m2 Glucose 74 60 - 115 mg/dL [facility] Calcium 8.8 8.4 - 10.2 mg/dL [facility] Bilirubin, Total 0.5 0.0 - 1.0 mg/dL [facility] Aspartate Amino Transferase 28 5 - 31 U/L [facility] Alanine Aminotransferase 17 0 - 31 U/L [facility] Total Protein 6.0(L) 6.5 - 8.0 g/dL [facility] Albumin Level 3.8 3.5 - 5.0 g/dL [facility] Alkaline Phosphatase 42 39 - 117 U/L [facility] Blood Venous blood specimen / Unknown 07/27/2024 9:12 AM EDT 07/27/2024 9:12 AM EDT us Audelia De Luna MD LAB BLOOD ORDERABLES Final Result Performing Organization Address [facility] de Phone Number [facility] [address] [place] [address] [phone] * Albumin, Random Urine W/Creatinine (07/27/2024 9:10 AM EDT) Creatinine, Urine 160.96 mg/dL [facility] Microalbumin Urine 9.0 mg/L [facility] Microalbum Creatinine Ratio Ur 5.5 <30 ug/mg cr [facility] Comment:Albumin/Creatinine R atio Reference Ranges: Normal: < 30 ug/mg creatinine Microalbuminuria: 30 - 300 ug/mg creatinineClinical Albuminuria: > 300 ug/mg creatinine Urine (Urine, Random) 07/27/2024 9:10 AM EDT 07/27/2024 9:36 AM EDT Audelia De Luna MD LAB URINE ORDERABLES Final Result Performing Organization Address [facility] de Phone Number [facility] [address] [place] [phone] * (ABNORMAL) Urinalysis Complete (07/27/2024 9:10 AM EDT) Color Urine Dark Yellow [facility] Appearance Urine Clear [facility] PH 5.5 5.0 - 9.0 [facility] Glucose Urine UA Negative Negative mg/dL [facility] Urine Blood Negative Negative [facility] Specific [place] - Urine 1.025 1.005 - 1.025 [facility] Urine Protein Negative Neg-Trace mg/dL [facility] Urine Ketones Trace Negative mg/dL [facility] Nitrite Urine Negative Negative [facility] Leukocyte Esterase Urine Small (1+)(A) Negative [facility] RBC Urine 0-2 0 - 2 /HPF [facility] Urine WBC 0-5 0 - 5 /HPF [facility] Urine Squamous Epithelial Cell 0-2 0 - 2 /HPF [facility] Urine Bacteria None Seen None Seen [facility] Hyaline Casts, Urine 0-2 0 - 2 /LPF [facility] Urine (Urine, Random) 07/27/2024 9:10 AM EDT 07/27/2024 9:36 AM EDT us Audelia De Luna MD LAB URINE ORDERABLES Final Result Performing Organization Address [facility]/State/ZIP Co de Phone Number [facility] [address] [place] [address] [phone] * BI Mammogram Screening Tomosynthesis Bilateral (06/21/2023 9:30 AM EST) Anatomical Region Laterality Modality Breast Bilateral Mammography 06/21/2023 9:30 AM EST Narrative 07/11/2023 5:57 AM EDT ? [facility] [place] ? [address] ?[place] [address] ? Mammography Report ? Signed ? Patient: Natalyaich,Rut G ?MR#: MM ?? [id number] ? : 1950 ?Acct:[id number] ? Age/Sex: 72 / F ?ADM Date: //24 ? Loc: HO.MAMMO ? Attending Dr: Chela Lynn MD ? Ordering Physician: Chela Lynn MD ?Results: 2Beni ?? gn Findings ? Date of Service: //24 ?Follow Up: 1 Year From Orig ?? inal Mammogram ? Procedure(s): MM tomosynthesis screening BI ?? Accession Number(s): [id number] ? cc: Chela Lynn MD ? EXAMINATION: [...] 0554 ? DD/ 9 ? TD/TT: ? Veneer Cutter: ? Procedure Note Paco Sánchez - 07/11/2023 [place] [facility] [address] [place], [place] [address] Mammography Report Signed Patient: AndrzejagnesDavis curtiswina GMR#: MM [id number] : 9Acct:[id number] Age/Sex: 72 / FADM Date: 06/21/23 Loc: HO.MAMMO Attending Dr: Chela Lynn MD Ordering Physician: Chela Lynn MDResults: 2Beni gn Findings Date of Service: 06/21/23Follow Up: 1 Year From [facility] Mammogram Procedure(s): MM tomosynthesis screening BI Accession Number(s): [id number] cc: Chela Lynn MD EXAMINATION: MM SCREENING [...] in OV> 07/11/23 0554 DD/ 0930 TD/TT: Veneer Cutter: us Chela Lynn MD IM BI PROCEDURES Final Resul t * Hepatitis C Antibody with Reflex to HCV, RNA, Quantitative, Real-Time PCR (06/18/2023 9:33 AM EST) Hepatitis C Antibody Nonreactive Nonreactive [facility] Comment:Antibodies to HCV no t detected; does not exclude early acuteHCV infection. Blood Venous blood specimen / Unknown 06/18/2023 9:33 AM EST 06/18/2023 2:41 PM EST us Chela Lynn MD LAB BLOOD ORDERABLES Final Re sult Performing Organization Address [facility] Co de Phone Number [facility] [address] [place] [address] [phone] * Lipid Panel, Standard (06/18/2023 9:33 AM EST) Triglycerides 103 <150 mg/dL [facility] Comment:Desirable Triglyceri de: less than 150 mg/dLBorderline High Triglyceride 150-199 mg/dLHigh Triglyceride: 200-499 mg/dLVery High Triglyceride: greater than or equal to 5OO mg/dL Cholesterol 143 <200 mg/dL [facility] Comment:Desirable Cholestero l: less than 200 mg/dLBorderline High Cholesterol: 200-239 mg/dLHigh Cholesterol: greater than 239 mg/dL LDL Cholesterol Calculated 82 <100 mg/dL [facility] Comment:Desirable LDL: less than 100 mg/dLNear Optimal/Above Optimal LDL: 110- 129 mg/dLBorderline High LDL: 130-159 mg/dLHigh LDL: 160-189 mg/dLVery High LDL: greater than or equal to 190 mg/dL HDL Cholesterol 41 >40 mg/dL [facility] Comment:Desirable HDL: great er than 40 mg/dL Note: This HDL assay may give artificially low results in patients with liver disease. Blood Venous blood specimen / Unknown 06/18/2023 9:33 AM EST 06/18/2023 2:41 PM EST us Chela Lynn MD LAB BLOOD ORDERABLES Final Re sult Performing Organization Address [facility]/ZIP Co de Phone Number [facility] [address] [place] [address] [phone] from Last 3 Months or Most Recently Relevant to Health Maintenance Insurance [employer] MEDICARE ADVANTAGE HMO Care Teams Ball Mill Mixer Relationship Specialty Start Date End Date Chela Lynn MD [address] [place] [phone] PCP - General Family Medicine 06/06/23
--- OUTSIDE RECORDS SUMMARY | 2024-08-25 10:44 | XMS_ITS | Encounter Summary ---
Author Organization [email or web address] Address [address] [facility] [address] [place] [address] Care Team Providers Care Tax Record Clerk Name Role Phone Chela Lynn MD Primary Care Provider [phone] Reason for Visit * Reason Comments Med Change Request Encounter Details Date Type Department Care Team ([facility] st Contact Info) Description 09/18/2023 Refill [facility] [address] [place], [place] [phone] Chela Lynn MD [address] [place] [address] Stuffy and runny nose Social History Tobacco [...] documented as of this encounter Care Teams Tax Record Clerk Relationship Specialty Start Date End Date Chela Lynn MD [address] [place] [address] PCP - General Family Medicine 06/06/23 documented as of this encounter
--- OUTSIDE RECORDS SUMMARY | 2024-08-25 10:44 | XMS_ITS | Data Portability ---
Author Organization [place] [facility], Allergy Address [address] [address] Care Team Providers Care Hvac Project Engineer Name Role Phone [facility] Primary Care Provider Assessment No assessment recorded. Plan of Treatment Reminders Order Date Submit Date Provider Last Modified By Organization Details Last Modified Time Details Appointments None recorded. Lab None recorded. Referral None recorded. Procedures None recorded. Surgeries None recorded. Imaging None recorded. Medication Orders ipratropium bromide 21 mcg (0.03 %) nasal spray 2023 024 [facility] #[id number], [address] [facility], [place], [address], 09:11:23 Patient TargetsNo targets recorded. Patient InstructionsNo instructions recorded. Reason for Referral None Reported. Problems Name Problem SNOMED Code Status Onset Date Resolution Date Notes Provider Name and Address Organization Details Recorded Time Vasomotor rhinitis 1061429 Active 2021 Vasomotor rhinitis; Note: Date Diagnosed: 07/06/2021 8:58 AM (J30.0) Not Available [facility] 4 02:56:49 Hypertrop hy of nasal turbinate s 04425560 Active 2022 Hypertroph y of nasal turbinates ; Note: Date Diagnosed: 03/15/2023 5:09 PM (J34.3) Not Available [facility] 4 02:56:46 Allergic rhinitis 41186007 Active 2022 Other allergic rhinitis; Note: Date Diagnosed: 03/15/2023 5:09 PM (J30.89) Not Available [facility] 4 02:56:48 Nasal congestio n 23662964 Active 2023 TREASURE ROMAN MD [address] [facility],[place] [address], [facility] [place], [address] , [facility] 4 09:05:55 Anterior rhinorrhe a 570708668 Active 2023 TREASURE ROMAN MD [address] [place] [address],[place] [address], [facility] [place], [phone] , [facility] 4 09:06:59 Problem Notes None recorded. Procedures Surgical History Date Name Laterality Status Provider Name and Address Organization Details Recorded Time 11/11/2023 NasalEndos copy_DP completed TREASURE ROMAN MD [address] [place] [address],[place] [address], [place], [phone], [facility] 11/11/2023 09:14:27 Imaging Results None recorded. Procedure Notes None recorded. Medical Equipment None Reported. Allergies Allergen ID Allergen Name Allergen Category Reaction Reaction Severity Criticality Documentation Date Start Date Code Code System Note Provider Name and Address Organization Details Recorded Time 372479 Product containin g penicilli n (product) medicatio n other Not available Not available 09/10/2023 98587 8001 SNOMED React ion: other react ion, Unkno wn; Not Available [facility] 4 01:12:17 081441 morphine medicatio n other Not available Not available 09/10/2023 7052 RxNorm React ion: other react ion, Unkno wn; Not Available [facility] 4 01:12:18 Medications Name Sig Start Date Stop Date Status Note LastModified by Organization Details LastModified Time pramipexol e 1 mg tablet 2021 active Medicatio n ID: [id number] Br and Name: pramipexo le Send Method: [...] Updated DateTime 11/11/2023 157.48 cm 28.3 kg/m2 07739.82 g Nathaniel Carlson [place] [facility] 11/11/2023 08:51:32 Social History None recorded. [...] Note 7835 TREASURE ROMAN MD [facility] of [address] [phone] 11/11/2023 08:43:17 11/11/2023 09:24:33 Nasal congestion 84175862 R09.81 Nasal endo negative for polyps and purulence. She may have vasomotor rhinitis. I would consider azelastine if not improved. Anterior rhinorrhea 2772 62402 J34.89 Likely vasomotor rhinitos. No hx of trauma or surgery. Vasomotor rhinitis 52524 03 J30.0 Her symptoms are most consistnet [...] Clark Member ID Guarantor Name 11/11/2023 [facility]: MEDICARE HMO BLUE (MEDICARE REPLACEMENT HMO) [id number] Rut Morales [id number] Rut Morales Notes Date Note Type [...] of abx for sinusitis. TREASURE ROMAN MD [address] [place] [address], [place], [address], [place] [facility] 11/11/2023 09:14:43 OBGyn Episode No OBEpisode recorded.
--- OUTSIDE RECORDS SUMMARY | 2024-08-25 10:44 | XMS_ITS | Encounter Summary ---
Author Organization [employer] Address [address] [place] [address] [address] [place] [address] Care Team Providers Care Sandfill Operator Name Role Phone Chela Lynn MD Primary Care Provider [phone] Reason for Visit * Reason Onset Date Comments Med Refill 07/27/2023 Encounter Details Date Type Department Care Team ([facility] st Contact Info) Description 07/27/2023 Refill [facility] [address] [place] [address] Chela Lynn MD [address] [place] [address] Lumbosacral spondylosis without myelopathy Social History Tobacco [...] documented as of this encounter Care Teams Sandfill Operator Relationship Specialty Start Date End Date Chela Lynn MD [address] [place] [address] PCP - General Family Medicine 06/06/23 documented as of this encounter
--- OUTSIDE RECORDS SUMMARY | 2024-08-25 10:44 | XMS_ITS | Encounter Summary ---
Author Organization [employer] Address 75 [facility] 7 [place] [address] Care Team Providers Care Labeling Specialist Name Role Phone Chela Lynn MD Primary Care Provider [phone] Reason for Visit * Reason Onset Date Comments Medication Question 08/23/2023 Encounter Details Date Type Department Care Team ([facility] st Contact Info) Description 08/23/2023 Telephone [facility] MEDICINE [address] [place] [address] Chela Lynn MD [address] [place] [address] Medication Question Social History Tobacco Use Types [...] with the injection. Please contact pt at [phone]. documented in this encounter Plan of Treatment Not on file documented as of this encounter Visit Diagnoses Not on filedocumented in this encounter Additional Health Concerns Assessment Noted Time PHQ-9 Depression Total Score: 2 06/06/19 24 10:37 AM EST documented as of this encounter Care Teams Labeling Specialist Relationship Specialty Start Date End Date Chela Lynn MD [address] [place] [address] PCP - General Family Medicine 06/06/23 documented as of this encounter
--- OUTSIDE RECORDS SUMMARY | 2024-08-25 10:44 | XMS_ITS | Encounter Summary ---
Author Organization [employer] Address [address] [place] [address] 7 [place] [address] Care Team Providers Care Implementation Coordinator Name Role Phone Chela Lynn MD Primary Care Provider [phone] Reason for Visit * Reason Comments Med Refill Encounter Details Date Type Department Care Team ([facility] st Contact Info) Description 08/25/2024 Refill [facility] MED & PEDS [address] [place], [place] [phone] Chela Lynn MD [address] [place] [address] Lumbosacral spondylosis without myelopathy Social History Tobacco [...] documented as of this encounter Care Teams Implementation Coordinator Relationship Specialty Start Date End Date Chela Lynn MD [address] [place] [address] PCP - General Family Medicine 06/06/23 documented as of this encounter
== END 2024-08-25 12:25 | disposition home or self-care (01) ==
LOC: HO.HGI 09:41
PROVIDERS: PCP Family Medicine; Referring Provider Family Medicine; Visit Provider Nurse Practitioner Family
DX: Z01.818 Encounter for other preprocedural examination (principal); Z12.11 Encounter for screening for malignant neoplasm of colon
CPT/HCPCS: 99024

== ENCOUNTER → 2024-08-25 09:40 | Outpatient (BNVA) | payer MEDICARE, SELFPAY | PROVIDERS: PCP Family Medicine; Referring Provider Family Medicine; Visit Provider Nurse Practitioner Family | DX: Z01.818 Encounter for other preprocedural examination (principal); K59.00 Constipation, unspecified | CPT/HCPCS: 99212 ==

== ENCOUNTER 2024-08-28 15:50 | Outpatient (REF) | payer MEDICARE, SELFPAY ==
--- NOTE | ~2024-08-28 | XR_ITS ---
EXAMINATION: XR WRIST, LEFT CLINICAL INFORMATION: Acute left wrist pain without preceding trauma. Hx of osteoporosis. COMPARISON: None available. TECHNIQUE: PA, lateral, and oblique views of the left wrist. FINDINGS: No fracture, dislocation, or suspicious bone lesion. Normal bone mineralization. Normal alignment. There are cystic changes in the lunate, likely related to erosive arthritis. There is extensive chondrocalcinosis throughout the wrist joint spaces, most notable in the TFCC. There are moderate to severe degenerative appearing arthritic changes in the first CMC joint. Soft tissues appear normal. XR/XR wrist LT min 3V IMPRESSION: 1. No acute bony abnormalities of the left wrist. 2. Chondrocalcinosis throughout the wrist joint spaces, in keeping with CPPD. 3. 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 4. 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 Electronically signed by: Donato Mace MD 08/31/2024 10:37 AM EDT
--- NOTE | ~2024-08-28 | XR_ITS ---
EXAMINATION: XR KNEE, LEFT CLINICAL INFORMATION: Acute on chronic left knee pain COMPARISON: 09/18/2014. TECHNIQUE: Four views of the left knee. FINDINGS: No fracture, dislocation, or suspicious bone lesion. Normal bone mineralization. Normal alignment. Extensive chondrocalcinosis throughout the joint spaces. Mild to moderate lateral, mild medial, and moderate patellofemoral arthritic changes present. Normal patellar alignment without significant patellar tilt. There are mild lateral compartment and moderate patellofemoral compartment marginal osteophytes. There is spurring of the tibial spines. No significant joint effusion. Soft tissues appear normal. XR/XR knee LT 3V IMPRESSION: 1. No acute bony abnormalities. 2. Extensive chondrocalcinosis throughout the knee. Findings suggest underlying CPPD. 3. 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 Mild changes in the medial compartment. Electronically signed by: Donato Mace MD 08/31/2024 10:34 AM EDT
--- OUTSIDE RECORDS SUMMARY | 2024-08-28 15:53 | XMS_ITS | Encounter Summary ---
Author Organization [employer] Address [address] [place] [address] Care Team Providers Care Emergency Department Physician Name Role Phone Chela Lynn MD Primary Care Provider [phone] Reason for Referral * Consultation (Urgent) - Authorized Specialty Diagnoses / Procedures Referred By Linn tsang Referred To Contact Orthopaedic Surgery Diagnoses Chronic pain of left knee Khushboo Daugherty MD [address] [place] [address] Phone: tel: fax: [facility] [address] [place] [address] Phone: tel: Referral ID Status Reason Start Date Expiration Date Visits Requested Visits Authorized [id number] Authorized Specialty Services Required 08/26/2024 08/26/2025 1 1 Encounter Details Date Type Department Care Team (Latest Contact Info) Description 08/26/2024 9:00 AM EDT Office Visit [facility] MED & PEDS [address] [place] [address] Khushboo Daugherty MD [address] [place] [address] Chronic pain of left knee (Primary Dx); Extensor tenosynovitis of left wrist Social History Tobacco Use Types Packs/Day Years [...] Sign Reading Time Taken Comments Blood Pressure 120/66 08/26/2024 8:56 AM EDT Pulse 66 08/26/2024 8:56 AM EDT Temperature 36.2 ??C (97.2 ??F) 08/26/2024 8:56 AM ED T Respiratory Rate 18 08/26/2024 8:56 AM EDT Oxygen Saturation 97% 08/26/2024 8:56 AM EDT Inhaled Oxygen Concentration - - Weight 57.4 kg (126 lb 9.6 oz) 08/26/2024 8:56 A M EDT Height 157.5 cm (5' 2 ) 08/26/2024 8:56 AM EDT Body Mass Index 23.16 08/26/2024 8:56 AM EDT documented in this encounter Progress Notes * Khushboo Daugherty MD - 08/26/2024 9:00 AM EDT SUBJECTIVE Rut Morales is a 74 y.o. female patient of Chela Lynn MD who presents for knee pain. YORDAN Bettencourt is here because of pain in both her knees for the past 3 days. Her knees hurt occasionally prior to this episode but now that hurt so much to walk and stand and even at rest. Denies any trauma, fevers or chills. Reports that both ankles and her back hurt as well. No numbness or weakness in lower extremities. Has tried taking ibuprofen without relief. She also has pain in both her wrists but moreso in her left wrist where she notes her wrist is red and slightly warm. Patient Active Problem List Diagnosis Diverticulosis of colon Adjustment disorder with depressed mood Class 1 obesity in adult Hypothyroidism Insomnia Lumbosacral spondylosis without myelopathy Osteopenia Spinal stenosis of lumbar region Shoulder pain head lumps PAD (peripheral artery disease) ([facility]) Displacement of lumbar intervertebral disc without myelopathy [...] (Lioresal) 10 MG tablet TAKE ONE TABLET BY MOUTH AT BEDTIME 90 tablet 1 biotin 2.5 [...] day, 88 mcg every other day. 30 [id number] levothyroxine (Synthroid, Levoxyl) 88 MCG tablet TAKE ONE TABLET EVERY MORNING 90 tablet 1 Minoxidil 5 % foam Half a capful [...] 1 (one) time perweek. 3 mL 0 [DISCONTINUED] baclofen (Lioresal) 10 MG tablet TAKE ONE TABLET AT BEDTIME 90 tablet 1 [DISCONTINUED] meloxicam (Mobic) 15 MG tablet Take 1 tablet (15 mg) by mouth in the morning. 60 tablet 0 No current facility-administered medications on file prior to visit. Review of Systems Constitutional: Negative for chills and fever. Musculoskeletal: Positive for arthralgias and back pain. Negative for joint swelling and myalgias. Skin: Negative for rash. Neurological: Negative for weakness and numbness. OBJECTIVE BP 120/66 (BP Location: Right arm, Patient Position: Sitting, BP Cuff Size: Adult) Pulse 66 Temp 97.2 ??F (36.2 ??C) (Oral) Resp 18 Ht 5' 2 (1.575 m) Wt 126 lb 9.6 oz (57.4 kg) SpO2 97% BMI 23.16 kg/m?? Physical Exam Constitutional: Comments: Appears chronically ill. Seated in wheelchair. Cardiovascular: Pulses: Normal pulses. Pulmonary: Effort: Pulmonary effort is normal. Musculoskeletal: Right wrist: No swelling. Left wrist: Swelling (mild warmth and slight erythema) and bony tenderness present. Lumbar back: Negative right straight leg raise test and negative left straight leg raise test. Right knee: Bony tenderness (medial joint line tenderness) present. No swelling, erythema or crepitus. Decreased range of motion (due to pain). No LCL laxity or MCL laxity. Left knee: Bony tenderness (left and right joint line tenderness) present. No swelling, erythema orcrepitus. Decreased range of motion (due to pain). No LCL laxity or MCL laxity. Right lower leg: Right lower leg edema: trace. Left lower leg: Left lower leg edema: trace. Comments: Positive Claudine test left wrist Skin: General: Skin is warm. Capillary Refill: Capillary refill takes less than 2 seconds. Neurological: Mental Status: She is alert. Mental status is at baseline. Psychiatric: Mood and Affect: Mood normal. Behavior: Behavior normal. Assessment/Plan Assessment/Plan Diagnoses and all orders for this visit: Chronic pain of left knee: Has known tricompartment arthritis of right knee per prior xray. Likely has same in this knee given joint line tenderness and pain with passive ROM. Recommended she take ibubuprofen RTC x 2 days to see if that helps. I will also check X rays and refer her to Ortho. - XR Knee 3 Views Left; Future - ibuprofen 800 MG tablet; Take 1 tablet by mouth every 8 hours for 2 days, then every 8 hours as needed for moderate-severe pain. Take with food. Extensor tenosynovitis of left wrist: Has radial side tenderness and positive Claudine test, c/wtenosynovitis. Gave her spica splint for left wrist. However, due to osteoporosis, will check xraysof left wrist. - XR Wrist 3+ Views Left; Future - ibuprofen 800 MG tablet; Take 1 tablet by mouth every 8 hours for 2 days, then every 8 hours as needed for moderate-severe pain. Take with food. No future appointments. documented in this encounter Plan of Treatment Scheduled Orders Name Type Priority Associated Diagnoses Orde r Schedule XR Wrist 3+ Views Left Imaging Routine Extensor tenosynovitis of left wrist Expected: 08/26/2024, Expires: 08/26/2025 XR Knee 3 Views Left Imaging Routine Chronic pain of left knee Expected: 08/26/2024, Expires: 08/26/2025 Scheduled Referrals Name Type Priority Associated Diagnoses Order Schedule Referral to Orthopaedic Surgery Outpatient Referral Urgent Chronic pain of left knee Expected: 08/26/2024 (Approximate), Expires: 08/26/2025 documented as of this encounter Visit Diagnoses Diagnosis Chronic pain of left knee- Primary Extensor tenosynovitis of left wrist documented in this encounter Additional Health Concerns Assessment Noted Time PHQ-9 Depression Total Score: 2 06/06/19 24 10:37 AM EST documented as of this encounter Care Teams Emergency Department Physician Relationship Specialty Start Date End Date Chela Lynn MD [address] [place] [address] PCP - General Family Medicine 06/06/23 documented as of this encounter
--- OUTSIDE RECORDS SUMMARY | 2024-08-28 15:53 | XMS_ITS | Encounter Summary ---
Author Organization [employer] Address 75 [facility] 7 [place] [address] Care Team Providers Care Senior Government Program Analyst Name Role Phone Chela Lynn MD Primary Care Provider [phone] Encounter Details Date Type Department Care Team ([facility] st Contact Info) Description 08/19/2024 Orders Only [facility] MED & PEDS [address] [place], [place] [phone] Audelia De Luna MD [address] [place] [address] Social History Tobacco Use Types [...] Procedure Name Priority Date/Time Associated Diagnosis Comments RAST ALLERGEN (NON ORDERABLE) Routine 08/19/2024 3:45 PM EDT documented in this encounter Results * Rast Allergen (08/19/2024 3:45 PM EDT) Rast Allergen SEE NOTE [facility] Comment:SEE SCANNED RESULTS IN EMR 08/19/2024 3:45 PM EDT 08/19/2024 5:45 PM EDT Narrative [facility] - 08/25/2024 11:22 AM EDT [address] ALLERGY MOLD PANEL,COMPLETE us Audelia De Luna MD HISTORICAL/NON ORDERABLE LA BS Final Result [facility] [address] [place] [address] [phone] documented in this encounter Visit Diagnoses Not on filedocumented in this encounter Additional Health Concerns Assessment Noted Time PHQ-9 Depression Total Score: 2 06/06/19 24 10:37 AM EST documented as of this encounter Care Teams Senior Government Program Analyst Relationship Specialty Start Date End Date Chela Lynn MD [address] [place] [address] PCP - General Family Medicine 06/06/23 documented as of this encounter
--- OUTSIDE RECORDS SUMMARY | 2024-08-28 15:53 | XMS_ITS | Encounter Summary ---
Author Organization [employer] Address 75 [facility] 7t [place] [address] Care Team Providers Care Automotive Machinist Apprentice Name Role Phone Chela Lynn MD Primary Care Provider [phone] Encounter Details Date Type Department Care Team (Latest Contact Info) Description 08/26/2024 Travel Social History Tobacco Use Types Packs/Day [...] the past 12 months, has t he [employer], gas, oil or water company threatened to [...] as of this encounter Care Teams Automotive Machinist Apprentice Relationship Specialty Start Date End Date Chela Lynn MD [address] [place] [address] PCP - General Family Medicine 06/06/23 documented as of this encounter
--- OUTSIDE RECORDS SUMMARY | 2024-08-28 15:53 | XMS_ITS | Encounter Summary ---
Author Organization [employer] Address 75 [facility] 7 [place] [address] Care Team Providers Care Silk Conditioner Name Role Phone Chela Lynn MD Primary Care Provider [phone] Encounter Details Date Type Department Care Team ([facility] st Contact Info) Description 08/04/2024 Orders Only [facility] CH[facility] MED & PEDS [address] [place], [place] [phone] Audelia De Luna MD [address] [place] [address] Acquired hypothyroidism (Primary Dx) Social History Tobacco [...] documented as of this encounter Care Teams Silk Conditioner Relationship Specialty Start Date End Date Chela Lynn MD [address] [place] [address] PCP - General Family Medicine 06/06/23 documented as of this encounter
--- OUTSIDE RECORDS SUMMARY | 2024-08-28 15:53 | XMS_ITS | Data Portability ---
Author Organization [place] [facility], Allergy Address [address] [address] Care Team Providers Care Cone Trucker Name Role Phone [email or web address] Primary Care Provider Assessment No assessment recorded. Plan of Treatment Reminders Order Date Submit Date Provider Last Modified By Organization Details Last Modified Time Details Appointments None recorded. Lab None recorded. Referral None recorded. Procedures None recorded. Surgeries None recorded. Imaging None recorded. Medication Orders ipratropium bromide 21 mcg (0.03 %) nasal spray 2023 024 [facility][id number], [address] [facility], [place], [address], 09:11:23 Patient TargetsNo targets recorded. Patient InstructionsNo instructions recorded. Reason for Referral None Reported. Problems Name Problem SNOMED Code Status Onset Date Resolution Date Notes Provider Name and Address Organization Details Recorded Time Vasomotor rhinitis 0650002 Active 2021 Vasomotor rhinitis; Note: Date Diagnosed: 07/06/2021 8:58 AM (J30.0) Not Available [facility] 4 02:56:49 Hypertrop hy of nasal turbinate s 73118517 Active 2022 Hypertroph y of nasal turbinates ; Note: Date Diagnosed: 03/15/2023 5:09 PM (J34.3) Not Available [facility] 4 02:56:46 Allergic rhinitis 15285735 Active 2022 Other allergic rhinitis; Note: Date Diagnosed: 03/15/2023 5:09 PM (J30.89) Not Available [facility] 4 02:56:48 Nasal congestio n 10484547 Active 2023 TREASURE ROMAN MD [address] [facility],[place] [address], [facility] [place], [address] , [facility] 4 09:05:55 Anterior rhinorrhe a 661629728 Active 2023 TREASURE ROMAN MD [address] [place] [address],[place] [address], [facility] [place], [address] , [facility] 4 09:06:59 Problem Notes None recorded. Procedures Surgical History Date Name Laterality Status Provider Name and Address Organization Details Recorded Time 11/11/2023 NasalEndos copy_DP completed TREASURE ROMAN MD [address] [place] [address],[place] [address], [place], [address], [facility] 11/11/2023 09:14:27 Imaging Results None recorded. Procedure Notes None recorded. Medical Equipment None Reported. Allergies Allergen ID Allergen Name Allergen Category Reaction Reaction Severity Criticality Documentation Date Start Date Code Code System Note Provider Name and Address Organization Details Recorded Time 392793 Product containin g penicilli n (product) medicatio n other Not available Not available 09/10/2023 20528 8001 SNOMED React ion: other react ion, Unkno wn; Not Available Replaced by [facility] 4 01:12:17 905925 morphine medicatio n other Not available Not available 09/10/2023 7052 RxNorm React ion: other react ion, Unkno wn; Not Available Replaced by [facility] 4 01:12:18 Medications Name Sig Start Date Stop Date Status Note LastModified by Organization Details LastModified Time pramipexol e 1 mg tablet 2021 active Medicatio n ID: [id number] Br and Name: pramipexo le Send Method: [...] Updated DateTime 11/11/2023 157.48 cm 28.3 kg/m2 75374.82 g Nathaniel Carlson [place] [facility] [...] Note 7835 TREASURE ROMAN MD [facility] of [address] [address] 11/11/2023 08:43:17 11/11/2023 09:24:33 Nasal congestion 56010969 R09.81 Nasal endo negative for polyps and purulence. She may have vasomotor rhinitis. I would consider azelastine if not improved. Anterior rhinorrhea 2772 510[address] J34.89 Likely vasomotor rhinitos. No hx of trauma or surgery. Vasomotor rhinitis 44143 03 J30.0 Her symptoms are most consistnet [...] Clark Member ID Guarantor Name 11/11/2023 1 [facility]: MEDICARE HMO BLUE (MEDICARE REPLACEMENT HMO) [id number] Rut Morales [id number] 290 Rut Morales Notes Date Note Type [...] of abx for sinusitis. TREASURE ROMAN MD [address] [place] [address], [place], [address], [place] [facility] 11/11/2023 09:14:43 OBGyn Episode No OBEpisode recorded.
--- OUTSIDE RECORDS SUMMARY | 2024-08-28 15:53 | XMS_ITS | Encounter Summary ---
Author Organization [employer] Address 75 [facility] 7 [place] [address] Care Team Providers Care Student Records Coordinator Name Role Phone Chela Lynn MD Primary Care Provider [phone] Reason for Visit * Reason Onset Date Comments Nurse Triage 07/20/2024 Encounter Details Date Type Department Care Team ([facility] st Contact Info) Description 07/20/2024 Telephone [facility] MEDICINE [address] [place] [address] Chela Lynn MD [address] [place] [address] Nurse Triage Social History Tobacco Use Types [...] caller accepted this outcome. Contact pt at [phone] documented in this encounter Plan of Treatment Not on file documented as of this encounter Visit Diagnoses Not on filedocumented in this encounter Additional Health Concerns Assessment Noted Time PHQ-9 Depression Total Score: 2 06/06/19 10:37 AM EST documented as of this encounter Care Teams Student Records Coordinator Relationship Specialty Start Date End Date Chela Lynn MD [address] [place] [address] PCP - General Family Medicine 06/06/23 documented as of this encounter
--- OUTSIDE RECORDS SUMMARY | 2024-08-28 15:53 | XMS_ITS | Encounter Summary ---
Author Organization [employer] Address 75 [facility] 7 [place] [address] Care Team Providers Care Shoe Cobbler Name Role Phone Chela Lynn MD Primary Care Provider [phone] Reason for Visit * Reason Onset Date Comments Nurse Triage 08/25/2024 Encounter Details Date Type Department Care Team ([facility] st Contact Info) Description 08/25/2024 Telephone [facility] MEDICINE [address] [place] [address] Chela Lynn MD [address] [place] [address] Nurse Triage Social History Tobacco Use Types [...] encounter Miscellaneous Notes * Telephone Encounter - Laquita Jordan RN - 08/25/2024 1:07 PM EDT Call returned to Rut Morales to triage below. Reports having lower back pain x 2 days. Perpt onset of bilateral knee pain that is chronic but has increasingly become worse. Per pt back painis bilateral. Per does have intermittent foot numbness. Pt having to use a cane to help with ambulation. Pt not taking any OTC pain relievers. Denies any urinary sx. Pt advised of disposition, declines [facility]. Agrees to sick on site tomorrow with [facility]. Reviewed [facility] operating hours and that wait times vary. Reviewed home care advise, ER precautions and reasons to call back. Protocol Used: Back Pain (Adult) Protocol-Based Disposition: See in Office or Video Visit Today Override (Final) Disposition: See in Office or Video Visit Today or Tomorrow Override Reason: No appointments available Future Appointments Date Time Provider Department Center 08/26/2024 9:00 AM [facility] Insurance verified as active per Real Time Eligibility in [facility]. Positive Triage Question: * Numbness in a leg or foot (i.e., loss of sensation) * All higher-acuity triage questions were negative Care Advice Discussed: * Reassurance and Education - Back Pain * Continue Activity * Reasons To Call Back - Loss of control of your bladder or bowel - Severe pain not better after taking pain medicines - You become worse * Telephone Encounter - Jos Bowers - 08/25/2024 12:55 PM EDT Symptom: lower Back Pain - Not From Injury Outcome: Schedule an appointment to be seen within 3 days Reason: Caller denied all higher acuity questions The caller accepted this outcome. documented in this encounter Plan of Treatment Not on file documented as of this encounter Visit Diagnoses Not on filedocumented in this encounter Additional Health Concerns Assessment Noted Time PHQ-9 Depression Total Score: 2 06/06/19 24 10:37 AM EST documented as of this encounter Care Teams Shoe Cobbler Relationship Specialty Start Date End Date Chela Lynn MD [address] [place] [address] PCP - General Family Medicine 06/06/23 documented as of this encounter
--- OUTSIDE RECORDS SUMMARY | 2024-08-28 15:53 | XMS_ITS | Encounter Summary ---
Author Organization [employer] Address [address] [place] [address] 7 [place] [address] Care Team Providers Care Student Financial Services Counselor Name Role Phone Chela Lynn MD Primary Care Provider [phone] Reason for Visit * Reason Comments Med Refill Encounter Details Date Type Department Care Team ([facility] Contact Info) Description 04/24/2024 Refill [facility] MED & PEDS [address] [place], [place] [phone] Chela Lynn MD 505 [place] [address] Social History Tobacco Use Types Packs/Day Years [...] as of this encounter Care Teams Student Financial Services Counselor Relationship Specialty Start Date End Date Chela Lynn MD [address] [place] [address] PCP - General Family Medicine 06/06/23 documented as of this encounter
--- OUTSIDE RECORDS SUMMARY | 2024-08-28 15:54 | XMS_ITS | Encounter Summary ---
Author Organization [employer] Address [address] [place] [address] Care Team Providers Care Well Service Pump Equipment Operator Name Role Phone Chela Lynn MD Primary Care Provider [phone] Reason for Referral * Imaging (Routine) - Closed Specialty Diagnoses / Procedures Referred By Contac t Referred To Contact Radiology Diagnoses Episodic cluster headache, not intractable Procedures CT Head w/o Contrast Audelia De Luna MD [address] [place] [address] Phone: tel: fax: [address] Phone: tel: fax: Referral ID Status Reason Start Date Expiration Date Visits Re quested Visits Authorized [id number] Closed 08/27/2023 08/26/2024 1 1 Encounter Details Date Type Department Care Team (Late st Contact Info) Description 08/27/2023 Orders Only [facility] [address] [place], [place] [phone] Audelia De Luna MD [address] [place], [place] [phone] Episodic cluster headache, not intractable (Primary Dx) [...] C-reactive Protein (02/06/2024 11:56 AM EDT) Pathologist [facility] C Reactive Protein 1.96(H) < or = 0.50 mg/dL [facility] 02/06/2024 11:5 6 AM EDT 02/06/2024 12:02 PM EDT Generic External Data Provider LAB BLOOD ORDERAB LES Final Result Performing Organization Address [facility]/ZIP Co de Phone Number [facility] [address] [place] [phone] * Creatine Kinase, Total (02/06/2024 11:56 AM EDT) [facility] Creatine Kinase Total 79 26 - 140 U/L [facility] 02/06/2024 11:5 6 AM EDT 02/06/2024 12:02 PM EDT Generic External Data Provider LAB BLOOD ORDERAB LES Final Result Performing Organization Address [facility]/ZIP Co de Phone Number [facility] [address] [place] [phone] * Prothrombin Time-INR (02/06/2024 11:56 AM EDT) [facility] Prothrombin Time 12.4 10.9 - 12.4 SEC [facility] INTERNATIONAL NORM RATIO 1.1 0.9 - 1.1 [facility] Comment:INTERNATIONAL NORMAL IZED RATIO (INR) [...] Provider LAB BLOOD ORDERAB LES Final Result [facility] [address] [place], [place] [phone] * (ABNORMAL) Comprehensive Metabolic Panel (02/06/2024 11:56 AM EDT) Sodium 136 135 - 145 mmol/L [facility] Potassium 4.1 3.3 - 5.1 mmol/L [facility] Chloride 101 96 - 108 mmol/L [facility] Carbon Dioxide 30(H) 22 - 29 mmol/L [facility] Anion Gap 9(L) 12 - 20 [facility] Urea Nitrogen (BUN) 17(H) 9 - 16 mg/dL [facility] Creatinine, Serum 0.69 0.5 - 1.4 mg/dL [facility] Creatinine Clr Calc Pharmacy 60.9 [facility] Comment:Provided height and weight: 157.48 cm,61.689 kg.eGFR (calculated from the MDRD study equation) and eCrCl(calculated from the Cockcroft-Gault equation) are based ondifferent parameters and may not yield comparable results.If eCrCl result is absurd, please check patient'sheight/weight. Estimated Glomerular Filt Rate >60 [facility] Comment:NOTE: For -Am erican individuals, multiply the result by 1.210.Chronic Kidney Disease: Estimated GFR < 60 mL/min/1.69x1Kbzsqa Kidney Disease: Estimated GFR < 15 mL/min/1.73m2 Glucose 92 60 - 115 mg/dL [facility] Calcium 9.7 8.4 - 10.2 mg/dL [facility] Bilirubin, Total 1.1(H) 0.0 - 1.0 mg/dL [facility] Aspartate Amino Transferase 20 5 - 31 U/L [facility] Alanine Aminotransferase 11 0 - 31 U/L [facility] Total Protein 5.9(L) 6.5 - 8.0 g/dL [facility] Albumin Level 3.7 3.5 - 5.0 g/dL [facility] Alkaline Phosphatase 65 39 - 117 U/L [facility] 02/06/2024 11:5 6 AM EDT 02/06/2024 12:02 PM EDT us Generic External Data Provider LAB BLOOD ORDERAB LES Final Result [facility] [address] [place] [phone] * (ABNORMAL) CBC auto differential (02/06/2024 11:56 AM EDT) White Blood Count 9.6 4.8 - 10.8 X10*3/uL [facility] Red Blood Count 4.64 4.20 - 5.50 X10*6/uL [facility] Hemoglobin 14.2 12.0 - 16.0 g/dl [facility] Hematocrit 43.0 37.0 - 47.0 % [facility] Mean Corpuscular Volume 92.7 80.0 - 98.0 fL [facility] Mean Corpuscular Hemoglobin 30.6 27.0 - 33.0 pg [facility] Mean Corpuscular HGB Conc 33.0 31.0 - 35.0 g/dl [facility] Red Cell Distribution Width 14.4 11.0 - 16.0 % [facility] Platelet Count 317 160 - 400 X10*3/uL [facility] Mean Platelet Volume 9.6 9.4 - 12.3 fL [facility] Neutrophils Percent Auto 66.2 45 - 73 % [facility] Imm Gran Pct Auto 0.4 0.0 - 0.4 % [facility] Lymphocytes Percent Auto 21.5 20 - 40 % [facility] Monocytes Percent Auto 10.7 2 - 11 % [facility] Eosinophils Percent Auto 0.8 0 - 4 % [facility] Basophils Percent Auto 0.4 0 - 2 % [facility] NRBC Pct Auto 0.0 0.0 - 0.2 /100WBC [facility] Neutrophils Absolute Auto 6.4 2.0 - 8.3 x10*3/uL [facility] Imm Gran Abs Auto 0.04(H) 0.00 - 0.03 X10*3/uL [facility] Lymphocytes Absolute Auto 2.1 1.2 - 4.9 X10*3/uL [facility] Monocytes Absolute Auto 1.0 0.1 - 1.2 X10*3/uL [facility] Eosinophils Absolute Auto 0.1 0.0 - 0.4 X10*3/uL [facility] Basophils Absolute Auto 0.0 0.0 - 0.2 X10*3/uL [facility] NRBC Abs Auto 0.000 0.0 - 0.012 X10*3/uL [facility] 02/06/2024 11:5 6 AM EDT 02/06/2024 12:02 PM EDT us Generic External Data Provider LAB BLOOD ORDERAB LES Final Result Performing Organization Address City/State/[facility] Co de Phone Number [facility] [address] [place] [phone] * CT Head w/o Contrast (10/08/2023 8:00 AM EDT) Anatomical Region Laterality Modality Head, Neck Computed Tomogra phy 10/08/2023 8:00 AM EDT Narrative 10/23/2023 5:32 PM EDT ? [facility] ?[address] ?[place] [address] ? CT Scan Report ? Signed ? Patient: Stefanowich,Rut G ?MR#: [id number] ?? [id number] ? : 1950 ?Acct:[id number] ? Age/Sex: 73 / F ?ADM Date: 10/08/23 ? Loc: HO.CT ? Attending Dr: Audelia De Luna MD ? Ordering Physician: Audelia De Luna MD ?? Date of Service: 10/08/23 ?? Procedure(s): CT head/brain wo IV con ?? Accession Number(s): [id number] ? cc: Audelia De Luna MD; Chela [...] ?10/23/238 ? DD/ 0800 ? TD/TT: ? Scrap Yard Worker: DZ ? Procedure Note Princess, Paco - 10/23/[address] [address] [address] Scan Report Signed Patient: Rut Morales GMR#: [id number] : 1951Acct:[id number] Age/Sex: 73 / FADM Date: 10/08/23 Loc: HO.CT Attending Dr: Audelia De Luna MD Ordering Physician: Audelia De Luna MD Date of Service: 10/08/23 Procedure(s): CT head/brain wo IV con Accession Number(s): [id number] cc: Audelia De Luna MD; Chela Lynn [...] in OV> 10/23/23 1728 DD/ 0800 TD/TT: Scrap Yard Worker: OLEKSANDR us Audelia De Luna MD IMG CT PROCEDURES Final Res ult documented in this encounter Visit Diagnoses Diagnosis Episodic cluster headache, not intractable- Primary documented in this encounter Additional Health Concerns Assessment Noted Time PHQ-9 Depression Total Score: 2 06/06/19 10:37 AM EST documented as of this encounter Care Teams Well Service Pump Equipment Operator Relationship Specialty Start Date End Date Chela Lynn MD [address] [place] [phone] PCP - General Family Medicine 06/06/23 documented as of this encounter
--- OUTSIDE RECORDS SUMMARY | 2024-08-28 15:54 | XMS_ITS | Encounter Summary ---
Author Organization [employer] Address [address] [facility] [address] [place] [address] Care Team Providers Care Fitness Floor Attendant Name Role Phone Chela Lynn MD Primary Care Provider [phone] Reason for Visit * Reason Onset Date Comments Results 02/19/2024 Encounter Details Date Type Department Care Team ([facility] st Contact Info) Description 02/19/2024 Telephone [facility] MEDICINE [address] [place] [address] Chela Lynn MD [address] [place] [address] Results Social History Tobacco Use Types Packs/Day [...] a follow up. Please contact pt at [phone]. * Telephone Encounter - Nathan Carvajal - 02/19/2024 9:41 AM EDT TC from pt requesting call back regarding Results. Type of results: Labs Date when done: 02/18/24 Facility: [facility] Labs - Type of results: XR Date when done: 02/18/24 Facility: [facility] documented in this encounter Plan of Treatment Not on file documented as of this encounter Visit Diagnoses Not on filedocumented in this encounter Additional Health Concerns Assessment Noted Time PHQ-9 Depression Total Score: 2 06/06/19 10:37 AM EST documented as of this encounter Care Teams Fitness Floor Attendant Relationship Specialty Start Date End Date Chela Lynn MD [address] [place] [address] PCP - General Family Medicine 06/06/23 documented as of this encounter
--- OUTSIDE RECORDS SUMMARY | 2024-08-28 15:54 | XMS_ITS | Encounter Summary ---
Author Organization [employer] Address [address] [place] [address] [address] [place] [address] Care Team Providers Care Hat Presser Name Role Phone Chela Lynn MD Primary Care Provider [phone] Reason for Visit * Reason Onset Date Comments Med Refill 07/27/2023 Encounter Details Date Type Department Care Team ([facility] st Contact Info) Description 07/27/2023 Refill [facility] MED & PEDS [address] [place] [address] Chela Lynn MD [address] [place] [address] Lumbosacral spondylosis without myelopathy Social History Tobacco [...] documented as of this encounter Care Teams Hat Presser Relationship Specialty Start Date End Date Chela Lynn MD [address] [place] [address] PCP - General Family Medicine 06/06/23 documented as of this encounter
--- OUTSIDE RECORDS SUMMARY | 2024-08-28 15:54 | XMS_ITS | Encounter Summary ---
Author Organization [employer] Address [address] [place] [address] [address] [place] [address] Care Team Providers Care Territory Service Representative Name Role Phone Chela Lynn MD Primary Care Provider [phone] Reason for Visit * Reason Comments Med Refill Encounter Details Date Type Department Care Team ([facility] st Contact Info) Description 08/25/2024 Refill [facility] MED & PEDS [address] [place], [place] [phone] Chela Lynn MD [address] [place] [address] Lumbosacral spondylosis without myelopathy Social History Tobacco [...] documented as of this encounter Care Teams Territory Service Representative Relationship Specialty Start Date End Date Chela Lynn MD [address] [place] [phone] PCP - General Family Medicine 06/06/23 documented as of this encounter
--- OUTSIDE RECORDS SUMMARY | 2024-08-28 15:54 | XMS_ITS | Data Portability ---
Author Organization [facility], PAIN OFFICE Address [address] [facility],[address] [address] Care Team Providers Care Fancy Wire Drawer Name Role Phone BROOKE LUTZ Referring Provider [phone] [facility] Primary Care Provider [phone] Assessment Encounter Date Assessment Date Assessment LastModified [...] By Organization Details Last Modified Time 04/07/2015 [id number] She was advised against bed rest lasting longer than four days and to continue activities as tolerated. [email or web address] Not available 04/07/2015 15:42:42 Reason for Referral None Reported. Results Created Date Observation Date Name Description Value Unit Range Abnormal Flag Note LastModifiedBy Organization Detail LastModifiedTime 06/16/19 16 MRI, lumba r spine No observ ation record ed. [facility] [address], [place], [address], 07/13/2015 13:43:24 Result Notes None recorded. Problems Name Problem SNOMED Code Status Onset Date Resolution Date Notes Provider Name and Address Organization Details Recorded Time Lumbosacral radiculitis 79153046 Active Mariano mishra MD [address] [facility] , [address], [place], [phone], [place] [facility] 5 15:55:08 Spinal stenosis of lumbar region 30306676 Active Mariano mishra MD [address] , [address], [place], [address], [place] [facility] 5 15:55:08 Displacement of lumbar intervertebral disc without myelopathy 51393173 Active Mariano mishra MD [address] , [address], [place], [address], [place] [facility] 5 15:55:08 Lumbosacral spondylosis without myelopathy 78900278 Active Mariano mishra MD [address] , [address], [place], [address], [place] [facility] [...] Imaging Date Name Status LastModified by [facility] Details LastModified Time 06/16/2015 MRI, lumbar spine completed [facility] [address], [place], [address], 07/13/2015 13:43:24 Procedure Notes None recorded. Medical Equipment None Reported. Allergies Allergen ID Allergen Name Allergen Category Reaction Reaction Severity Criticality Documentation Date Start Date Code Code System Note Provider Name and Address Organization Details Recorded Time 11274 Product containin g penicilli n (product) medicatio n Not available Not available Not available 04/07/2015 47616 8001 SNOMED Betty Pricezier null, [place] - [...] Address Organization Details Last Updated DateTime 5 35010.7 029 g 96 % 96 % 157.48 cm 31.1 kg/m2 74 /min 111 mm[Hg] 66 mm[Hg] Betty Corcoran [place] [facility] 5 14:22:21 Social History Question Answer Notes LastModified by Organizat ion Details LastModified Time Tobacco Smoking Status Former Smoker Quit x 30 years Not Available [employer] 02/12/2020 03:16:11 What Is Your Level Of Alcohol Consumption? None [id number] Information not available 02/12/2020 Are You Currently Employed? No [id number] Information not available 02/12/2020 Which Illicit Or Recreational Drugs Have You Used? No [id number] Information not available 02/12/2020 Education 12 Information no t available 04/07/2015 Live Alone Or With Others? With Others Information not available 04/07/2015 Marital Status Informatio n not available 04/07/2015 How Many Years Have You Smoked Tobacco? 15 [id number] Information not available 02/12/2020 Sex: Unknown Functional Status None recorded. Mental Status None recorded. Family History Relationship Description Onset Age of this Age Resolved Age Notes LastModified by Organization Details LastModified Time Mother Heart disease [email or web address] Not available 03/29 15:41:13 Father Heart disease [email or web address] Not available 03/29 15:41:13 Medical History Condition Response Headache Y Arthritis Y Migrane Y GERD/Reflux Y Depression Y Hypothyroidism Y Gynecological HistoryNo gynecological history recorded. Obstetrics History GPAL:G 0 P 0 0 0 0 Past Encounters Encounter ID Performer Location Encounter Start Date Encounter Closed Date Diagnosis/Indication Diagnosis SNOMED-CT Code Diagnosis ICD10 Code Diagnosis Note [id number] Mariano Pratt MD PAIN OFFICE [address] [facility] [address] [place] [address] 04/07/2015 13:31:37 04/13/2015 15:56:09 Displacement of lumbar intervertebral disc without myelopathy 48971881 M51.26 Lumbosacra l radiculitis 21810662 M54.17 Lumbosacra l spondylosis without myelopathy 83723579 M47.817 Spinal parth nosis of lumbar region 04405236 M48.06 Health Concerns Section Related Observation LastModified by Organization Detai ls LastModified Time None Recorded Concern Status LastModified by Organization Details LastModified Time None Recorded Advance Directives Directive None Recorded Payers Encounter Date Sequence Insurance Name Policy Number Policy Clark Covered Member ID Clark Member ID Guarantor Name 04/07/2015 1 MEDICARE B-[place]: [employer] Rut Morales [id number] A Rut Morales Notes Date Note Type [...] numbness in her left foot. 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
--- OUTSIDE RECORDS SUMMARY | 2024-08-28 15:54 | XMS_ITS | Clinical Summary ---
Author Organization [employer] Address [address] [place] [address] [address] [place] [address] Care Team Providers Care Bonsai Tender Name Role Phone Chela Lynn MD Primary Care Provider [phone] Allergies Active Allergy Reactions Criticality Noted Date Comments Morphine 12/28/2021 nausea vomiting Penicillins 12/28/2021 Medications TURMERIC PO Take 1,500 mg by mouth 2 times daily. Active mometasone (Nasonex) 50 MCG/ACT nasal sprayIndications: Stuffy and runny nose Administer 1-2 sprays into each nostril Once per day. 17 g 2 09/18/19 24 2024 Active ipratropium (Atrovent) 0.03 % nasal spray USE 2 SPRAY THREE TIMES A DAY DIRECTED 11/11/19 24 Active gabapentin (Neurontin) 600 MG tabletIndications :Lumbosacral spondylosis without myelopathy TAKE ONE TABLET TWICE DAILY 60 tablet 5 01/29/20 24 Active alendronate (Fosamax) 70 MG tablet Take 1 tablet (70 mg) by mouth every 7 (seven) days. Take in the morning with a full glass of water, on an empty stomach, and do not take anything else by mouth or lie down for the next 30 min. 4 tablet 11 04/01/20 24 Active Calcium Citrate-Vitamin D3 1000-0.01 MG/30ML liquid Take 30 mL by mouth 2 times daily. 473 mL 3 04/06/20 24 Active Minoxidil 5 % foam Half a capful of 5% foam applied topically twice daily to the scalp in the area of hair loss 60 g 3 04/16/20 24 Active polyethylene glycol, PEG, 3350 (MiraLax) 17 GM/SCOOP powder Take 17 g by mouth Once per day. 527 g 2 04/16/20 24 Active senna-docusate sodium (Senokot-S) 8.6-50 MG tablet Take 1 tablet by mouth Once per day. 60 tablet 5 04/16/20 24 Active biotin 2.5 MG capsule Take 1 capsule (2.5 mg) by mouth Once per day. 90 capsule 1 04/16/20 24 Active allopurinol (Zyloprim) 100 MG tablet Take 1 tablet (100 mg) by mouth Once per day. 90 tablet 1 04/24/20 24 Active traZODone (Desyrel) 100 MG tabletIndications :Insomnia, unspecified type TAKE ONE TABLET AT BEDTIME 90 tablet 1 05/06/19 25 Active Wegovy 1.7 MG/0.75ML solution auto-injector Inject 0.75 mL (1.7 mg) under the skin 1 (one) time per week. 3 mL 05/22/19 25 Active levothyroxine (Synthroid, Levoxyl) 88 MCG tabletIndications :Hypothyroidism, unspecified type TAKE ONE TABLET EVERY MORNING 90 tablet 1 06/17/19 25 Active Tirzepatide (Mounjaro) 2.5 MG/0.5ML solution auto-injectorIndi cations:Class 1 obesity with serious comorbidity in adult, unspecified BMI, unspecified obesity type Inject 2.5 mg under the skin 1 (one) time per week. 2 mL 3 07/08/19 25 Active levothyroxine (Synthroid) 100 MCG tabletIndications :Acquired hypothyroidism 100 mcg every other day, 88 mcg every other day. 30 tablet 11 08/05/19 25 Active baclofen (Lioresal) 10 MG tabletIndications :Lumbosacral spondylosis without myelopathy TAKE ONE TABLET BY MOUTH AT BEDTIME 90 tablet 1 08/26/19 25 Active ibuprofen 800 MG tabletIndications :Extensor tenosynovitis of left wrist,Chronic pain of left knee Take 1 tablet by mouth every 8 hours for 2 days, then every 8 hours as needed for moderate-bing re pain. Take with food. 42 tablet 08/27/19 25 Active meloxicam (Mobic) 15 MG tabletIndications :Lumbosacral spondylosis without myelopathy Take 1 tablet (15 mg) by mouth in the morning. 60 tablet 06/06/19 24 2024 Discontinued baclofen (Lioresal) 10 MG tabletIndications :Lumbosacral spondylosis without myelopathy TAKE ONE TABLET AT BEDTIME 90 tablet 1 03/03/20 24 2024 Discontinued Active Problems Problem Noted Date Diagnosed Date [...] Relevant Medication Mometasone (Nasonex) 50 MCG/ACT Nasal [place] Physical exam, annual 07/23/2023 Assessment & Plan [...] vasc origin. Diverticulosis of colon 06/06/2023 06/06/19 Overview (06/06/2023): severe in sigmoid, mild in [...] recommended reduction of 20-30% of maintenance calories; veneer redrier referral offered. Recommended to decrease soda and [...] Encounters Date Type Department Care Team Description 08/26/2024 9:00 AM EDT Office Visit [facility] [address] [place] [address] Khushboo Daugherty MD Chronic pain of left knee (Primary Dx); Extensor tenosynovitis of left wrist 08/26/2024 Travel 08/25/2024 Telephone [facility] [address] [place] [address] Chela Lynn MD Nurse Triage 08/25/2024 Refill [facility] [address], [place] [phone] Chela Lynn MD Lumbosacral spondylosis without myelopathy 08/19/2024 3:15 PM EDT Office Visit [facility] [address] [place] [address] Audelia De Luna MD Mold suspected exposure (Primary Dx) 08/19/2024 Orders Only [facility] [address] [place] [phone] Audelia De Luna MD 08/19/2024 Travel 08/04/2024 Telephone [facility] [address] [place] [address] Audelia De Luna MD 08/04/2024 Orders Only [facility] [address] [place] [phone] Audelia De Luna MD Acquired hypothyroidism (Primary Dx) 08/03/[address] [phone] Chela Lynn MD Nurse Triage 07/29/2024 Telephone [facility] [address], [place] [phone] Audelia De Luna MD Results ( Audelia De Luna MD [facility] Peds Nurses/Please call. Ms Rut [...] in her urine. /) 07/27/2024 Orders Only [facility] [address] [place] [address] Audelia De Luna MD 07/24/2024 3:45 PM EDT Office Visit [facility] [address] [place] [address] Audelia De Luna MD Edema, lower extremity (Primary Dx); Paresthesias 07/24/2024 Travel 07/20/2024 Telephone [facility] [address] [place] [address] Chela Lynn MD Nurse Triage 07/14/2024 Telephone [facility] [address] [place] [address] Chela Lynn MD Prior Authorization 07/07/2024 3:15 PM EDT Office Visit [facility] [address] [place] [address] Audelia De Luna MD Class 1 obesity with serious comorbidity in adult, unspecified BMI, unspecified obesity type (Primary Dx) 07/07/2024 Travel 06/30/2024 Telephone [facility] [address] [place] [address] Chela Lynn MD Medication Question 06/17/2024 Refill [facility] [address] [place] [address] Chela Lynn MD Hypothyroidism, unspecified type 06/04/2024 Telephone [facility] [address] [place] [address] Chela Lynn MD 06/02/2024 Telephone [facility] [address] [place] [address] Chela Lynn MD Medication Question; Prior Authorization from Last 3 Months Immunizations Name Administration Dates Next Due Influenza High-dose Quadriva lent Preservative Free 12/27/2022,12/16/2020 Influenza Quadrivalent Adjuvanted 01/07/2020 Influenza Whole 01/02/2020,12/12/2018 Influenza injectable quadriv alent IIV4 with preservative 02/02/2015 Influenza live intranasal qu adrivalent LIAV4 01/28/2014 Influenza, High Dose Seasona l, Preservative Free 12/24/2023,01/09/2017,02/02/2016 Influenza, IIV3, injectable 12/24/2023,0 12/27/2022,02/05/2022,12/16,01/07/2020,01/21/2018,12/28/2017 ,01/09/2017,01/08/2017,02/12/2016,10/0 09/2015,06/24/2015,02/02/2015, 3,04/29/2012,01/28/2012,01/24/2012 Influenza, live, intranasal 01/28/2014 Influenza, trivalent, [...] Mass Index 23.16 08/26/2024 8:56 AM EDT Plan of Treatment Health Maintenance Due [...] (NON ORDERABLE) Routine 08/19/2024 3:45 PM EDT ALLERGY MOLD PANEL, COMPLETE Routine 08/19/2024 Mold suspected exposure XR CHEST 2 VIEWS Routine 07/27/2024 9:25 [...] Recently Relevant to Health Maintenance Results * Rast Allergen (08/19/2024 3:45 PM EDT) Rast Allergen SEE NOTE [facility] Comment:SEE SCANNED RESULTS IN EMR 08/19/2024 3:45 PM EDT 08/19/2024 5:45 PM EDT Narrative [facility] - 08/25/2024 11:22 AM EDT [id number] ALLERGY MOLD PANEL,COMPLETE us Audelia De Luna MD HISTORICAL/NON ORDERABLE LA BS Final Result Performing Organization Address [facility]/ZIP Co de Phone Number [facility] [address] [place] [phone] * Allergy Mold Panel, Complete (08/19/2024) Blood Venous blood specimen / Unknown us Audelia De Luna MD LAB BLOOD ORDERABLES Final Result EXTERNAL LAB * XR Chest 2 Views (07/27/2024 9:25 AM EDT) Anatomical Region Laterality Modality Chest Radiographic Aundrea ging 07/27/2024 9:2 5 AM EDT Narrative 07/27/2024 11:38 AM EDT ? [facility] ?[address] ?[place] [address] ?XRay Report ? Signed ? Patient: Stefanowich,Rut G ?MR#: MM ?? [id number] ? : 1950 ?Acct:[id number] ? Age/Sex: 74 / F ?ADM Date: 07/27/24 ? Loc: HO.CHCLDS ? Attending Dr: Audelia De Luna MD ? Ordering Physician: Audelia De Luna MD ?? Date of Service: 07/27/24 ?? Procedure(s): XR chest 2V ?? Accession Number(s): [id number] ? cc: Audelia De Luna MD ? [...] ?07/27/24 1136 ? DD/ 4 ? TD/TT: 07/27/24 0930 ? Senior It Auditor: ? Procedure Note Paco Sánchez - 07/27/[address] [address] XRay Report Signed Patient: Rut Morales GMR#: [id number] : 9Acct:[id number] Age/Sex: 74 / FADM Date: 07/27/24 Loc: HO.CHCLDS Attending Dr: Audelia De Luna MD Ordering Physician: Audelia De Luna MD Date of Service: 07/27/24 Procedure(s): XR chest 2V Accession Number(s): [id number] cc: Audelia De Luna MD EXAMINATION: XR [...] in OV> 07/27/24 1136 DD/ 4 TD/TT: 07/27/24 09 Senior It Auditor: Audelia De Luna MD IMG XR PROCEDURES Final Res ult * Vitamin B12/Folate, Serum Panel (07/27/2024 9:12 AM EDT) Vitamin B12 261 200 - 900 pg/mL [facility] Comment:NORMAL 200-900 PG/ML INDETERMINATE 160-199 PG/ML DEFICIENT < 160 PG/ML Folate 13.9 > or = 4.0 ng/mL [facility] Comment:Reference Values:> o r = [...] BLOOD ORDERABLES Final Result Performing Organization Address [facility] Co de Phone Number [facility] [address] [place] [phone] * (ABNORMAL) TSH W/Reflex to FT4 (07/27/2024 9:12 AM EDT) Pathologist [facility] TSH reflex Free T4 4.55(H) 0.32 - 4.0 uIU/mL [facility] Blood Venous blood specimen / Unknown 07/27/2024 9:12 AM EDT 07/27/2024 9:12 AM EDT us Audelia De Luna MD LAB BLOOD ORDERABLES Final Result Performing Organization Address [facility] de Phone Number [facility] [address] [place] [phone] * CBC auto differential (07/27/2024 9:12 AM EDT) [facility] White Blood Count 7.5 4.8 - 10.8 X10*3/uL [facility] Red Blood Count 4.55 4.20 - 5.50 X10*6/uL [facility] Hemoglobin 13.6 12.0 - 16.0 g/dl [facility] Hematocrit 42.6 37.0 - 47.0 % [facility] Mean Corpuscular Volume 93.6 80.0 - 98.0 fL [facility] Mean Corpuscular Hemoglobin 29.9 27.0 - 33.0 pg [facility] Mean Corpuscular HGB Conc 31.9 31.0 - 35.0 g/dl [facility] Red Cell Distribution Width 15.0 11.0 - 16.0 % [facility] Platelet Count 328 160 - 400 X10*3/uL [facility] Mean Platelet Volume 9.7 9.4 - 12.3 fL [facility] Neutrophils Percent Auto 60.9 45 - 73 % [facility] Imm Gran Pct Auto 0.4 0.0 - 0.4 % [facility] Lymphocytes Percent Auto 27.2 20 - 40 % [facility] Monocytes Percent Auto 8.4 2 - 11 % [facility] Eosinophils Percent Auto 2.3 0 - 4 % [facility] Basophils Percent Auto 0.8 0 - 2 % [facility] NRBC Pct Auto 0.0 0.0 - 0.2 /100WBC [facility] Neutrophils Absolute Auto 4.6 2.0 - 8.3 x10*3/uL [facility] Imm Gran Abs Auto 0.03 0.00 - 0.03 X10*3/uL [facility] Lymphocytes Absolute Auto 2.1 1.2 - 4.9 X10*3/uL [facility] Monocytes Absolute Auto 0.6 0.1 - 1.2 X10*3/uL [facility] Eosinophils Absolute Auto 0.2 0.0 - 0.4 X10*3/uL [facility] Basophils Absolute Auto 0.1 0.0 - 0.2 X10*3/uL [facility] NRBC Abs Auto 0.000 0.0 - 0.012 X10*3/uL [facility] Blood Venous blood specimen / Unknown 07/27/2024 9:12 AM EDT 07/27/2024 9:12 AM EDT us Audelia De Luna MD LAB BLOOD ORDERABLES Final Result [facility] [address] [place], [place] [phone] * T4, Free (07/27/2024 9:12 AM EDT) Free T4 (Free Thyroxine) 0.96 0.71 - 1.85 ng/dL [facility] 07/27/2024 9:12 AM EDT 07/27/2024 9:12 AM EDT us Audelia De Luna MD LAB BLOOD ORDERABLES Final Result Performing Organization Address [facility]/ZIP Co de Phone Number [facility] [address] [place] [phone] * Vitamin B1 (07/27/2024 9:12 AM EDT) Vitamin B1 15 8 - 30 nmol/L [facility] Comment:Vitamin supplementat ion within 24 hours prior toblood draw may affect the accuracy of the results.This test was developed and its analytical performancecharacteristics have been determined by [place]. It hasnot been cleared or approved by the U.S. Food and DrugAdministration. This assay has been validated pursuantto the CLIA regulations and is used for clinicalpurposes.THIS TEST WAS PERFORMED AT:[employer]/[id number] [place] [address]BACUTVZJEN MARIE MD,PHD Blood Venous blood specimen / Unknown 07/27/2024 9:12 AM EDT 07/27/2024 9:12 AM EDT Audelia De Luna MD LAB BLOOD ORDERABLES Final Result Performing Organization Address [facility] Co de Phone Number [facility] [address] [place] [phone] * Vitamin B6 (07/27/2024 9:12 AM EDT) Vitamin B6 3.4 2.1 - 21.7 ng/mL [facility] Comment:Vitamin supplementat ion within 24 hours prior toblood draw may affect the accuracy of the results.This test was developed and its analytical performancecharacteristics have been determined by [place] [place]. It hasnot been cleared or approved by the U.S. Food and DrugAdministration. This assay has been validated pursuantto the CLIA regulations and is used for clinicalpurposes.THIS TEST WAS PERFORMED AT:[employer] [id number] [place] [address]WYZWDDVJEN MARIE MD,PHD Blood Venous blood specimen / Unknown 07/27/2024 9:12 AM EDT 07/27/2024 9:12 AM EDT us Audelia De Luna MD LAB BLOOD ORDERABLES Final Result [facility] [address] [place] [address] [phone] * (ABNORMAL) Comprehensive Metabolic Panel (07/27/2024 9:12 AM EDT) Sodium 143 135 - 145 mmol/L [facility] Potassium 4.4 3.3 - 5.1 mmol/L [facility] Chloride 109(H) 96 - 108 mmol/L [facility] Carbon Dioxide 29 22 - 29 mmol/L [facility] Anion Gap 9(L) 12 - 20 [facility] Urea Nitrogen (BUN) 14 9 - 16 mg/dL [facility] Creatinine, Serum 0.66 0.5 - 1.4 mg/dL [facility] Estimated Glomerular Filt Rate >60 [facility] Comment:Chronic Kidney Disea se: Estimated GFR < 60 mL/min/1.44j1Pkpcdu Kidney Disease: Estimated GFR < 15 mL/min/1.73m2 Glucose 74 60 - 115 mg/dL [facility] Calcium 8.8 8.4 - 10.2 mg/dL [facility] Bilirubin, Total 0.5 0.0 - 1.0 mg/dL [facility] Aspartate Amino Transferase 28 5 - 31 U/L [facility] Alanine Aminotransferase 17 0 - 31 U/L [facility] Total Protein 6.0(L) 6.5 - 8.0 g/dL [facility] Albumin Level 3.8 3.5 - 5.0 g/dL [facility] Alkaline Phosphatase 42 39 - 117 U/L [facility] Blood Venous blood specimen / Unknown 07/27/2024 9:12 AM EDT 07/27/2024 9:12 AM EDT us Audelia De Luna MD LAB BLOOD ORDERABLES Final Result Performing Organization Address [facility] Co de Phone Number [facility] [address] [place] [phone] * Albumin, Random Urine W/Creatinine (07/27/2024 9:10 AM EDT) Creatinine, Urine 160.96 mg/dL [facility] Microalbumin Urine 9.0 mg/L [facility] Microalbum Creatinine Ratio Ur 5.5 <30 ug/mg cr [facility] Comment:Albumin/Creatinine R atio Reference Ranges: Normal: < 30 ug/mg creatinine Microalbuminuria: 30 - 300 ug/mg creatinineClinical Albuminuria: > 300 ug/mg creatinine Urine (Urine, Random) 07/27/2024 9:10 AM EDT 07/27/2024 9:36 AM EDT us Audelia De Luna MD LAB URINE ORDERABLES Final Result Performing Organization Address [facility] Co de Phone Number [facility] [address] [place] [phone] * (ABNORMAL) Urinalysis Complete (07/27/2024 9:10 AM EDT) Color Urine Dark Yellow [facility] Appearance Urine Clear [facility] PH 5.5 5.0 - 9.0 [facility] Glucose Urine UA Negative Negative mg/dL [facility] Urine Blood Negative Negative [facility] Specific [place] - Urine 1.025 1.005 - 1.025 [facility] Urine Protein Negative Neg-Trace mg/dL [facility] Urine Ketones Trace Negative mg/dL [facility] Nitrite Urine Negative Negative [facility] Leukocyte Esterase Urine Small (1+)(A) Negative [facility] RBC Urine 0-2 0 - 2 /HPF [facility] Urine WBC 0-5 0 - 5 /HPF [facility] Urine Squamous Epithelial Cell 0-2 0 - 2 /HPF [facility] Urine Bacteria None Seen None Seen [facility] Hyaline Casts, Urine 0-2 0 - 2 /LPF [facility] Urine (Urine, Random) 07/27/2024 9:10 AM EDT 07/27/2024 9:36 AM EDT us Audelia De Luna MD LAB URINE ORDERABLES Final Result Performing Organization Address City/State/[facility] Co de Phone Number [facility] [address] [place] [address] [phone] * BI Mammogram Screening Tomosynthesis Bilateral (06/21/2023 9:30 AM EST) Anatomical Region Laterality Modality Breast Bilateral Mammography 06/21/2023 9:30 AM EST Narrative 07/11/2023 5:57 AM EDT ? [facility] [place] ? [address] ?[place] [address] ? Mammography Report ? Signed ? Patient: Carmen,Rut G ?MR#: MM ?? [id number] ? : 1950 ?Acct:[id number] ? Age/Sex: 72 / F ?ADM Date: 02/23/24 ? Loc: HO.MAMMO ? Attending : Chela Lynn MD ? Ordering Physician: Chela Lynn MD ?Results: 2Beni ?? gn Findings ? Date of Service: 06/21/23 ?Follow Up: 1 Year From Orig ?? inal Mammogram ? Procedure(s): MM tomosynthesis screening BI ?? Accession Number(s): [id number] ? cc: Chela Lynn MD ? EXAMINATION: [...] in OV> ? 07/11/23 0554 ? DD/ 0930 ? TD/TT: ? Senior It Auditor: ? Procedure Note Donotuseinterpreter, Image - [facility] [address] [place], [place] [address] Mammography Report Signed Patient: Rut Morales GMR#: MM [id number] : 9Acct:[id number] Age/Sex: 72 / FADM Date: 06/21/23 Loc: HO.MAMMO Attending Dr: Chela Lynn MD Ordering Physician: Chela Lynn MDResults: 2Beni gn Findings Date of Service: 06/21/23Follow Up: 1 Year From Orig ina Mammogram Procedure(s): MM tomosynthesis screening BI Accession Number(s): [id number] cc: Chela Lynn MD EXAMINATION: MM SCREENING [...] in OV> 07/11/23 0554 DD/ 0930 TD/TT: Senior It Auditor: Chela Lynn MD IMG BI PROCEDURES Final Resul t * Hepatitis C Antibody with Reflex to HCV, RNA, Quantitative, Real-Time PCR (06/18/2023 9:33 AM EST) Hepatitis C Antibody Nonreactive Nonreactive [facility] Comment:Antibodies to HCV no t detected; does not exclude early acuteHCV infection. Blood Venous blood specimen / Unknown 06/18/2023 9:33 AM EST 06/18/2023 2:41 PM EST us Chela Lynn MD LAB BLOOD ORDERABLES Final Re sult Performing Organization Address [facility] de Phone Number [facility] [address] [place] [phone] * Lipid Panel, Standard (06/18/2023 9:33 AM EST) Triglycerides 103 <150 mg/dL [facility] Comment:Desirable Triglyceri de: less than 150 mg/dLBorderline High Triglyceride 150-199 mg/dLHigh Triglyceride: 200-499 mg/dLVery High Triglyceride: greater than or equal to 5OO mg/dL Cholesterol 143 <200 mg/dL [facility] Comment:Desirable Cholestero l: less than 200 mg/dLBorderline High Cholesterol: 200-239 mg/dLHigh Cholesterol: greater than 239 mg/dL LDL Cholesterol Calculated 82 <100 mg/dL [facility] Comment:Desirable LDL: less than 100 mg/dLNear Optimal/Above Optimal LDL: 110- 129 mg/dLBorderline High LDL: 130-159 mg/dLHigh LDL: 160-189 mg/dLVery High LDL: greater than or equal to 190 mg/dL HDL Cholesterol 41 >40 mg/dL [facility] Comment:Desirable HDL: great er than 40 mg/dL Note: This HDL assay may give artificially low results in patients with liver disease. Blood Venous blood specimen / Unknown 06/18/2023 9:33 AM EST 06/18/2023 2:41 PM EST us Chela Lynn MD LAB BLOOD ORDERABLES Final Re sult Performing Organization Address [facility] Co de Phone Number [facility] [address] [place] [phone] from Last 3 Months or Most Recently Relevant to Health Maintenance Insurance [employer] MEDICARE ADVANTAGE HMO Care Teams Bonsai Tender Relationship Specialty Start Date End Date Chela Lynn MD [address] [place] [phone] PCP - General Family Medicine 06/06/23
--- OUTSIDE RECORDS SUMMARY | 2024-08-28 15:54 | XMS_ITS | Encounter Summary ---
Author Organization [employer] Address [address] [facility] [address] [place] [address] Care Team Providers Care Lead Tank Mechanic Name Role Phone Chela Lynn MD Primary Care Provider [phone] Reason for Visit * Reason Comments Med Change Request Encounter Details Date Type Department Care Team ([facility] st Contact Info) Description 09/18/2023 Refill [facility] [address] [place], [place] [phone] Chela Lynn MD [address] [place] [address] Stuffy and runny nose Social History Tobacco [...] documented as of this encounter Care Teams Lead Tank Mechanic Relationship Specialty Start Date End Date Chela Lynn MD [address] [place] [address] PCP - General Family Medicine 06/06/23 documented as of this encounter
--- OUTSIDE RECORDS SUMMARY | 2024-08-28 15:54 | XMS_ITS | Encounter Summary ---
Author Organization [employer] Address [address] [facility] [address] [place] [address] Care Team Providers Care Health Technician Hearing Name Role Phone Chela Lynn MD Primary Care Provider [phone] Reason for Visit * Reason Onset Date Comments Med Refill 04/01/2024 Encounter Details Date Type Department Care Team ([facility] st Contact Info) Description 04/01/2024 Telephone [facility] MEDICINE [address] [place] [address] Chela Lynn MD [address] [place] [address] Med Refill Social History Tobacco Use Types [...] 04/01/2024 3:54 PM EST Medication sent to [facility] on 02/03/24 #[id number] with 1 refill. * Telephone Encounter - Lucy Anderson - 04/01/2024 3:52 PM EST TC from pt requesting medication refill. Medications needing refill : Oyster Shell Calcium + D3 500-10 MG-MCG tablet To be sent to: [facility] documented in this encounter Plan of Treatment Not on file documented as of this encounter Visit Diagnoses Not on filedocumented in this encounter Additional Health Concerns Assessment Noted Time PHQ-9 Depression Total Score: 2 06/06/19 10:37 AM EST documented as of this encounter Care Teams Health Technician Hearing Relationship Specialty Start Date End Date Chela Lynn MD [address] [place] [address] PCP - General Family Medicine 06/06/23 documented as of this encounter
--- OUTSIDE RECORDS SUMMARY | 2024-08-28 15:54 | XMS_ITS | Encounter Summary ---
Author Organization [employer] Address [address] [facility] [address] [place] [address] Care Team Providers Care Doors Prefitter Name Role Phone Chela Lynn MD Primary Care Provider [phone] Reason for Visit * Reason Onset Date Comments Medication Question 08/23/2023 Encounter Details Date Type Department Care Team ([facility] st Contact Info) Description 08/23/2023 Telephone [facility] MEDICINE [address] [place] [address] Chela Lynn MD [address] [place] [address] Medication Question Social History Tobacco Use Types [...] with the injection. Please contact pt at [phone]. documented in this encounter Plan of Treatment Not on file documented as of this encounter Visit Diagnoses Not on filedocumented in this encounter Additional Health Concerns Assessment Noted Time PHQ-9 Depression Total Score: 2 06/06/19 24 10:37 AM EST documented as of this encounter Care Teams Doors Prefitter Relationship Specialty Start Date End Date Chela Lynn MD [address] [place] [address] PCP - General Family Medicine 06/06/23 documented as of this encounter
== END 2024-08-28 15:51 | disposition home or self-care (01) ==
LOC: HO.XRAY 15:50
PROVIDERS: PCP Family Medicine; Visit Provider Internal Medicine
DX: M65.932 Unspecified synovitis and tenosynovitis, left forearm (principal); M25.562 Pain in left knee; G89.29 Other chronic pain
CPT/HCPCS: 73110; 73562

== ENCOUNTER → 2024-08-28 15:54 | Outpatient (BNV) | payer MEDICARE, SELFPAY | PROVIDERS: PCP Family Medicine; Visit Provider Radiology Diagnostic Radiology | DX: M17.12 Unilateral primary osteoarthritis, left knee (principal); M11.262 Other chondrocalcinosis, left knee; M18.12 Unilateral primary osteoarthritis of first carpometacarpal joint, left hand; M11.232 Other chondrocalcinosis, left wrist | CPT/HCPCS: 73110; 73562 ==

== ENCOUNTER → 2024-09-14 12:32 | Outpatient (REF) | payer MEDICARE, SELFPAY ==
--- NOTE | 2024-09-14 12:35 | CA_ITS ---
Transthoracic Echocardiogram Patient (Last, First, Middle): Rut Morales G Gender: Female Date of : 1950 Age: 74 Procedure Date: 09/14/2024 Procedure Type: Transthoracic Echocardiogram Location: OP Height: 157.48 cm Weight: 56.25 kg BSA: 1.56 m2 Heart Rate: 58 bpm BP: 108 / 54 mmHg Marketing Sales Manager: SB Referring MD: Audelia De Luna MD Symptoms: R60.0 EDEMA BLLE Study Quality: Adequate ECG Rhythm: Bradycardia Conclusions: - The left ventricular systolic function is normal. The calculated ejection fraction is 65% by biplane method. - No obvious valvular pathology seen on this study. Findings Left Ventricle Normal left ventricular cavity size. The left ventricular systolic function is normal. The calculated ejection fraction is 65% by biplane method. There is no evidence of regional wall motion abnormalities. Diastolic function is normal for age. There is mild septal asymmetric hypertrophy. Right Ventricle Normal right ventricular cavity size and systolic function. Atria Both atria are normal in size. Aortic Valve There is a normal trileaflet aortic valve. There is no aortic valve stenosis. There is no aortic valve regurgitation. Mitral Valve The mitral valve appears normal. There is mild mitral valve regurgitation. There is no mitral valve stenosis. Pulmonic Valve The pulmonic valve is likely normal. Tricuspid Valve Normal tricuspid valve structure. There is trace tricuspid valve regurgitation. There is no evidence of pulmonary hypertension. Great Vessels The asc aorta is normal in size. Venous The inferior vena cava is normal in size and collapses greater than 50% with inspiration. Pericardium/Pleural There is no evidence of pericardial effusion. Prior Study Comparison No prior study available for comparison. Recommendations, Care & Conclusions No obvious valvular pathology seen on this study. Measurements 2D Linear Measurements IVSd: 1.17 0.6-0.9/0.6-1.0 cm LVIDd: 3.85 3.9-5.3/4.2-5.9 cm LVIDd Index: 2.47 2.4-3.2/2.2-3.1 cm/m2 LVIDs: 2.83 2.0-3.6 cm LVPWd: 0.60 0.7-1.1 cm LA Diam: 2.90 2.7-3.8/3.0-4.0 cm LAIDs Index: 1.86 1.5-2.3 cm/m2 LV Mass: 125.55 67-162/88-224 g LV Mass Index: 80.48 43-95/49-115 g/m2 LVOT Diam: 2.30 3.0+(-)1.3 cm 2D Systolic Function EF 4C: 57.90 >55% EF 2C: 69.90 >55% EF BiP: 65.40 >55% Mitral Valve MV Pk E: 0.76 MV PK A: 0.65 MV Decel Time: 228.00 E/A: 1.20 E'Lateral: 9.03 E'Medial: 7.51 E/E' Med: 10.20 E/E' Lat: 8.40 PHT: 67.00 MVA PHT: 3.28 Decel Mcduffie: 3.35 Aortic Valve AoV Pk Jeremiah: 1.08 AoV Pk Grad: 5.00 NIVIA: 4.11 LVOT LVOT Pk Jeremiah: 0.95 LVOT Mn Jeremiah: 0.67 LVOT VTI: 0.22 LVOT Pk Grad: 4.00 LVOT Mn Grad: 2.00 LVOT Diam: 2.30 LVOT Area: 4.15 Diastolic Function MV Pk E: 0.76 MV Pk A: 0.65 E/A: 1.20 E'Medial: 7.51 E/E' Med: 10.20 E' Laterial: 9.03 E/E' Lat: 8.40 Right Ventricle TAPSE (mm): 22.60 TVS' Jeremiah: 12.90 Tricuspid Valve TR Pk Jeremiah: 2.06 TR Pk Grad: 17.00 RA Press: 3.00 RVSP: 20.00 Great Vessels Aorta Sinus of Valsalva: 2.90 2.0-3.5 cm Ao Asc: 3.30 2.1-3.4 cm Pulmonary Veins Pulm Vein S/D 1.20 Pulmonary Valve PV Pk Jeremiah: 0.99 Peak PV Grad: 4.00 Updated in Other Vendor System with Status of Final Prateek Gerber MD electronically signed on 09/15/2024 8:27:22 AM with status of Final
--- OUTSIDE RECORDS SUMMARY | 2024-09-14 12:53 | XMS_ITS | Clinical Summary ---
Author Organization [employer] Address [address] [facility] [address] [address] [place] [address] Care Team Providers Care Melangeur Operator Name Role Phone Chela Lynn MD Primary Care Provider [phone] Allergies Active Allergy Reactions Criticality Noted Date [...] TIMES A DAY DIRECTED 11/11/19 24 Active alendronate (Fosamax) 70 MG tablet [...] with food. 42 tablet 08/27/19 25 Active gabapentin (Neurontin) 600 MG tabletIndications :Lumbosacral spondylosis without myelopathy TAKE ONE TABLET TWICE DAILY 60 tablet 5 09/05/19 25 Active meloxicam (Mobic) 15 MG tabletIndications :Lumbosacral spondylosis without myelopathy Take 1 tablet (15 mg) by mouth in the morning. 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 Recommended to decrease soda and [...] Encounters Date Type Department Care Team Description 09/04/2024 Telephone [facility] [address] [place], [place] [phone] Khushboo Daugherty MD Results 09/04/2024 Refill [facility] [address], [place] [phone] Chela Lynn MD Lumbosacral spondylosis without myelopathy 08/31/2024 Telephone [facility] [address] [place], [place] [phone] Shruthi Conti, MITCH Results 08/31/2024 Telephone [facility] [address] [place] [address] Chela Lynn MD 08/31/2024 Telephone [facility] [address] [place] [address] Chela Lynn MD 08/26/2024 9:00 AM EDT Office Visit [facility] [address] [place] [address] Khushboo Daugherty MD Chronic pain of left knee (Primary Dx); Extensor tenosynovitis of left wrist 08/26/2024 Travel 08/25/[address] [address] Chela Lynn MD Nurse Triage 08/25/2024 Refill [facility] [address] [place] [address] Chela Lynn MD Lumbosacral spondylosis without myelopathy 08/19/2024 3:15 PM EDT Office Visit [facility] [address] [place] [address] Audelia De Luna MD Mold suspected exposure (Primary Dx) 08/19/2024 Orders Only [facility] [address] [place] [address] Audelia De Luna MD 08/19/2024 Travel 08/04/2024 Telephone [facility] [address] [place] [address] Audelia De Luna MD 08/04/2024 Orders Only [facility] [address] [place] [address] Audelia De Luna MD Acquired hypothyroidism (Primary Dx) 08/03/[address] [address] Chela Lynn MD Nurse Triage 07/29/2024 Telephone [facility] [address] [place] [address] Audelia De Luna MD Results ( Audelia De Luna MD [facility] Nurses/Please call. Ms [...] in her urine. /) 07/27/2024 Orders Only [facility] [address] [place] [address] Audelia De Luna MD 07/24/2024 3:45 PM EDT Office Visit [facility] [address] [place] [address] Audelia De Luna MD Edema, lower extremity (Primary Dx); Paresthesias 07/24/2024 Travel 07/20/2024 Telephone [facility] [address] [facility] [place] [address] Chela Lynn MD Nurse Triage 07/14/2024 Telephone [facility] [address] [place] [address] Chela Lynn MD Prior Authorization 07/07/2024 3:15 PM EDT Office Visit [facility] [address] [place] [address] Audelia De Luna MD Class 1 obesity with serious comorbidity in adult, unspecified BMI, unspecified obesity type (Primary Dx) 07/07/2024 Travel 06/30/2024 Telephone [facility] [address] [place] [address] Chela Lynn MD Medication Question 06/17/2024 Refill [facility] [address] [place] [address] Chela Lynn MD Hypothyroidism, unspecified type from Last 3 Months Immunizations Immunization Administration Dates Next Due Influenza High-dose Quadriva [...] 05/28/2024 05/28/2023 Depression Screening 06/06/2024 06/06/2023, 06/06/19 24 COVID-19 Vaccine ( season) 2024 12/27/2023, 04/17/2023, 03/02/2022, Additional history exists Alcohol/Substance Use Screening 03/20/2025 03/20/2024 Mammogram 06/21/2025 06/21/2023 Tobacco Screening 08/19/2025 08/19/2024 Lipid Panel 06/18/2028 06/18/2023 DTaP/Tdap/Td Vaccines (5 - Td or Tdap) 06/06/2033 06/06/2023, 10/22/2011, 04/29/2011, Additional history exists Pneumococcal Vaccine: 50+ Years Completed 07/22/2015, 01/29/2014 Hepatitis C Screening Completed 06/18/2023 Influenza Vaccine Completed 12/24/2023, , 12/27/2022, Additional history exists RSV Patients and Patients [...] patient's age to complete this topic Meningococcal B Vaccine Aged Out No l onger eligible based on patient's age to complete [...] Name Priority Date/Time Associated Diagnosis Comments XR KNEE 3 VIEWS LEFT Routine 08/28/2024 3:54 PM EDT Chronic pain of left knee XR WRIST 3+ VIEWS LEFT Routine 08/28/2024 3:54 PM EDT Extensor tenosynovitis of left wrist RAST ALLERGEN (NON ORDERABLE) Routine 08/19/2024 3:45 [...] Relevant to Health Maintenance Results * XR Knee 3 Views Left (08/28/2024 3:54 PM EDT) Anatomical Region Laterality Modality Lower Extremities, Knee Left [facility] 08/28/2024 3:54 PM EDT Narrative 08/31/2024 10:37 AM EDT ? [facility] ?[address] ?[place] [address] ?XRay Report ? Signed ? Patient: Stefanowich,Rut G ?MR#: MM ?? [id number] ? : 1950 ?Acct:[id number] ? Age/Sex: 74 / F ?ADM Date: 08/28/24 ? Loc: HO.XRAY ? Attending Dr: Khushboo Daugherty MD ? Ordering Physician: Khushboo Daugherty MD ?? Date of Service: 08/28/24 ?? Procedure(s): XR knee LT 3V ?? Accession Number(s): [id number] ? cc: Khushboo Daugherty MD; Chela Lynn MD ? EXAMINATION: ?? XR KNEE, LEFT ? CLINICAL INFORMATION: ?? Acute on chronic left knee pain ? COMPARISON: ?? 09/18/2014. ? TECHNIQUE: ?? Four views of the left knee. ? FINDINGS: ?? No fracture, dislocation, or suspicious bone lesion. Normal bone ?? mineralization. ?? Normal alignment. ?? Extensive chondrocalcinosis throughout the joint spaces. ?? Mild to moderate lateral, mild medial, and moderate patellofemoral ?? arthritic changes present. ?? Normal patellar alignment without significant patellar tilt. There are ?? mild lateral compartment and moderate patellofemoral compartment ?? marginal osteophytes. ?? There is spurring of the tibial spines. ? No significant joint effusion. ? Soft tissues appear normal. ? XR/XR knee LT 3V ?? IMPRESSION: ?? 1. No acute bony abnormalities. ?? 2. Extensive chondrocalcinosis throughout the knee. Findings suggest ?? underlying CPPD. ?? 3. 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 compartment and mild to moderate in the lateral compartment. Mild ?? changes in the medial compartment. ? Electronically signed by: ??Donato Mace MD ??08/31/2024 10:34 AM EDT RP ? Dictated By: ?Donato Mace MD ? Signed By: ?<Electronically signed by Donato Mace MD in OV> ?08/31/24 1034 ? DD/ 1554 ? TD/TT: 08/28/24 1605 ? Associate Counsel: ? Procedure Note Donotarabella, Image - 08/31/[address] [address] XRay Report Signed Patient: Rut Morales GMR#: [id number] : 9Acct:[id number] Age/Sex: 74 / FADM Date: 08/28/24 Loc: HO.XRAY Attending Dr: Khushboo Daugherty MD Ordering Physician: Khushboo Daugherty MD Date of Service: 08/28/24 Procedure(s): XR knee LT 3V Accession Number(s): [id number] cc: Khushboo Daugherty MD; Chela Lynn MD EXAMINATION: XR KNEE, LEFT CLINICAL INFORMATION: Acute on chronic left knee pain COMPARISON: 09/18/2014. TECHNIQUE: Four views of the left knee. FINDINGS: No fracture, dislocation, or suspicious bone lesion. Normal bone mineralization. Normal alignment. Extensive chondrocalcinosis throughout the joint spaces. Mild to moderate lateral, mild medial, and moderate patellofemoral arthritic changes present. Normal patellar alignment without significant patellar tilt. There are mild lateral compartment and moderate patellofemoral compartment marginal osteophytes. There is spurring of the tibial spines. No significant joint effusion. Soft tissues appear normal. XR/XR knee LT 3V IMPRESSION: 1. No acute bony abnormalities. 2. Extensive chondrocalcinosis throughout the knee. Findings suggest underlying CPPD. 3. 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 Mild changes in the medial compartment. Electronically signed by: Donato Mace MD 08/31/2024 10:34 AM EDT Dictated By: Donato Mace MD Signed By: <Electronically signed by Donato Mace MD in OV> 08/31/24 1034 DD/ 1554 TD/TT: 08/28/24 1605 Associate Counsel: Khushboo Daugherty MD IMG XR PROCEDURES Final Resul t * XR Wrist 3+ Views Left (08/28/2024 3:54 PM EDT) Anatomical Region Laterality Modality Upper Extremities, Wrist Left Radiogr [facility] Imaging 08/28/2024 3:54 PM EDT Narrative 08/31/2024 10:40 AM EDT ? [facility] ?[address] ?[place] [address] ?XRay Report ? Signed ? Patient: Andrzejkim,Rut G ?MR#: MM ?? [id number] ? : 1950 ?Acct:[id number] ? Age/Sex: 74 / F ?ADM Date: 08/28/24 ? Loc: HO.XRAY ? Attending Dr: Khushboo Daugherty MD ? Ordering Physician: Khushboo Daugherty MD ?? Date of Service: 08/28/24 ?? Procedure(s): XR wrist LT min 3V ?? Accession Number(s): [id number] ? cc: Khushboo Daugherty MD; Chela Lynn MD ? EXAMINATION: ?? XR WRIST, LEFT ? CLINICAL INFORMATION: ?? Acute left wrist pain without preceding trauma. ??Hx of osteoporosis. ? COMPARISON: ?? None available. ? TECHNIQUE: ?? PA, lateral, and oblique views of the left wrist. ? FINDINGS: ?? No fracture, dislocation, or suspicious bone lesion. Normal bone ?? mineralization. ?? Normal alignment. ?? There are cystic changes in the lunate, likely related to erosive ?? arthritis. ?? There is extensive chondrocalcinosis throughout the wrist joint spaces, ?? most notable in the TFCC. ?? There are moderate to severe degenerative appearing arthritic changes ?? in the first CMC joint. ? Soft tissues appear normal. ? XR/XR wrist LT min 3V ?? IMPRESSION: ?? 1. No acute bony abnormalities of the left wrist. ?? 2. Chondrocalcinosis throughout the wrist joint spaces, in keeping with ?? CPPD. ?? 3. There are subchondral cystic changes in the lunate, possibly ?? erosions related to CPPD arthritis. ?? 4. There is moderate to severe degenerative appearing arthritis of the ?? first CMC joint. ? Electronically signed by: ??Donato Mace MD ??08/31/2024 10:37 AM EDT RP ? Dictated By: ?Donato Mace MD ? Signed By: ?<Electronically signed by Donato Mace MD in OV> ?08/31/24 1037 ? DD/ 1554 ? TD/TT: 08/28/24 1605 ? Associate Counsel: ? Procedure Note Donshwethater, Image - 08/31/[address] [address] XRay Report Signed Patient: Rut Morales GMR#: MM [id number] : 9Acct:[id number] Age/Sex: 74 / FADM Date: 08/28/24 Loc: HO.XRAY Attending Dr: Khushboo Daugherty MD Ordering Physician: Khushboo Daugherty MD Date of Service: 08/28/24 Procedure(s): XR wrist LT min 3V Accession Number(s): [id number] cc: Khushboo Daugherty MD; Chela Lynn MD EXAMINATION: XR WRIST, LEFT CLINICAL INFORMATION: Acute left wrist pain without preceding trauma. Hx of osteoporosis. COMPARISON: None available. TECHNIQUE: PA, lateral, and oblique views of the left wrist. FINDINGS: No fracture, dislocation, or suspicious bone lesion. Normal bone mineralization. Normal alignment. There are cystic changes in the lunate, likely related to erosive arthritis. There is extensive chondrocalcinosis throughout the wrist joint spaces, most notable in the TFCC. There are moderate to severe degenerative appearing arthritic changes in the first CMC joint. Soft tissues appear normal. XR/XR wrist LT min 3V IMPRESSION: 1. No acute bony abnormalities of the left wrist. 2. Chondrocalcinosis throughout the wrist joint spaces, in keeping with CPPD. 3. 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 4. 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 Electronically signed by: Donato Mace MD 08/31/2024 10:37 AM EDT Dictated By: Donato Mace MD Signed By: <Electronically signed by Donato Mace MD in OV> 08/31/24 1037 DD/ 1554 TD/TT: 08/28/24 1605 Associate Counsel: us Khushboo Daugherty MD IMG XR PROCEDURES Final Resul t * Rast Allergen (08/19/2024 3:45 PM EDT) Rast Allergen SEE NOTE [facility] Comment:SEE SCANNED RESULTS IN EMR 08/19/2024 3:45 PM EDT 08/19/2024 5:45 PM EDT Narrative [facility] - 08/25/2024 11:22 AM EDT [id number] ALLERGY MOLD PANEL,COMPLETE us Audelia De Luna MD HISTORICAL/NON ORDERABLE LA BS Final Result Performing Organization Address [facility] de Phone Number [facility] [address] [place] [phone] * Allergy Mold Panel, Complete (08/19/2024) Blood Venous blood specimen / Unknown us Audelia De Luna MD LAB BLOOD ORDERABLES Final Result Performing Organization Address [facility] de Phone Number EXTERNAL LAB * XR Chest 2 Views (07/27/2024 9:25 AM EDT) Anatomical Region Laterality Modality Chest Radiographic Aundrea ging 07/27/2024 9:25 AM EDT Narrative 07/27/2024 11:38 AM EDT ? [facility] ?[address] ?[place] [address] ?XRay Report ? Signed ? Patient: Stefanowich,Rut G ?MR#: MM ?? [id number] ? : 1950 ?Acct:[id number] ? Age/Sex: 74 / F ?ADM Date: 03/31/25 ? Loc: HO.CHCLDS ? Attending Dr: Audelia De Luna MD ? Ordering Physician: Audelia De Luna MD ?? Date of Service: 07/27/24 ?? Procedure(s): XR chest 2V ?? Accession Number(s): [id number] ? cc: Audelia De Luna MD ? [...] signed by Ignacio Peter MD in OV> ?03/31/25 1136 ? DD/ 4 ? TD/TT: 07/27/[address] ? Associate Counsel: ? Procedure Note Princess, Image - 07/27/2024 [place] [address] XRay Report Signed Patient: Rut Morales GMR#: MM [id number] : 9Acct:[id number] Age/Sex: 74 / FADM Date: 07/27/24 Loc: HO.CHCLDS Attending Dr: Audelia De Luna MD Ordering Physician: Audelia De Luna MD Date of Service: 07/27/24 Procedure(s): XR chest 2V Accession Number(s): [id number] cc: Audelia De Luna MD EXAMINATION: XR [...] OV> 07/27/24 1136 DD/ 4 TD/TT: 07/27/[address] Associate Counsel: us Audelia De Luna MD IMG XR PROCEDURES Final Res ult * Vitamin B12/Folate, Serum Panel (07/27/2024 9:12 AM EDT) Vitamin B12 261 200 - 900 pg/mL [facility] Comment:NORMAL 200-900 PG/ML INDETERMINATE 160-199 PG/ML DEFICIENT < 160 PG/ML Folate 13.9 > or = 4.0 ng/mL [facility] Comment:Reference Values:> o r = [...] Luna MD LAB BLOOD ORDERABLES Final Result [facility] [address] [place] [address] [phone] * (ABNORMAL) TSH W/Reflex to FT4 (07/27/2024 9:12 AM EDT) Pathologist [facility] TSH reflex Free T4 4.55(H) 0.32 - 4.0 uIU/mL [facility] Blood Venous blood specimen / Unknown 07/27/2024 9:12 AM EDT 07/27/2024 9:12 AM EDT Audelia De Luna MD LAB BLOOD ORDERABLES Final Result [facility] [address] [place] [phone] * CBC auto differential (07/27/2024 9:12 AM EDT) [facility] White Blood Count 7.5 4.8 - 10.8 X10*3/uL [facility] Red Blood Count 4.55 4.20 - 5.50 X10*6/uL [facility] Hemoglobin 13.6 12.0 - 16.0 g/dl [facility] Hematocrit 42.6 37.0 - 47.0 % [facility] Mean Corpuscular Volume 93.6 80.0 - 98.0 fL [facility] Mean Corpuscular Hemoglobin 29.9 27.0 - 33.0 pg [facility] Mean Corpuscular HGB Conc 31.9 31.0 - 35.0 g/dl [facility] Red Cell Distribution Width 15.0 11.0 - 16.0 % [facility] Platelet Count 328 160 - 400 X10*3/uL [facility] Mean Platelet Volume 9.7 9.4 - 12.3 fL [facility] Neutrophils Percent Auto 60.9 45 - 73 % [facility] Imm Gran Pct Auto 0.4 0.0 - 0.4 % [facility] Lymphocytes Percent Auto 27.2 20 - 40 % [facility] Monocytes Percent Auto 8.4 2 - 11 % [facility] Eosinophils Percent Auto 2.3 0 - 4 % [facility] Basophils Percent Auto 0.8 0 - 2 % [facility] NRBC Pct Auto 0.0 0.0 - 0.2 /100WBC [facility] Neutrophils Absolute Auto 4.6 2.0 - 8.3 x10*3/uL [facility] Imm Gran Abs Auto 0.03 0.00 - 0.03 X10*3/uL [facility] Lymphocytes Absolute Auto 2.1 1.2 - 4.9 X10*3/uL [facility] Monocytes Absolute Auto 0.6 0.1 - 1.2 X10*3/uL [facility] Eosinophils Absolute Auto 0.2 0.0 - 0.4 X10*3/uL [facility] Basophils Absolute Auto 0.1 0.0 - 0.2 X10*3/uL [facility] NRBC Abs Auto 0.000 0.0 - 0.012 X10*3/uL [facility] Blood Venous blood specimen / Unknown 07/27/2024 9:12 AM EDT 07/27/2024 9:12 AM EDT us Audelia De Luna MD LAB BLOOD ORDERABLES Final Result Performing Organization Address City/[facility]/ZIP Co de Phone Number [facility] [address] [place] [phone] * T4, Free (07/27/2024 9:12 AM EDT) Free T4 (Free Thyroxine) 0.96 0.71 - 1.85 ng/dL [facility] 07/27/2024 9:12 AM EDT 07/27/2024 9:12 AM EDT us Audelia De Luna MD LAB BLOOD ORDERABLES Final Result Performing Organization Address [facility]/ZIP Co de Phone Number [facility] [address] [place] [phone] * Vitamin B1 (07/27/2024 9:12 AM EDT) Vitamin B1 15 8 - 30 nmol/L [facility] Comment:Vitamin supplementat ion within 24 hours prior toblood draw may affect the accuracy of the results.This test was developed and its analytical performancecharacteristics have been determined by [employer] [place], [place]. It hasnot been cleared or approved by the U.S. Food and DrugAdministration. This assay has been validated pursuantto the CLIA regulations and is used for clinicalpurposes.THIS TEST WAS PERFORMED AT:[id number] [place] [address]EKXHYCBJEN MARIE MD,PHD Blood Venous blood specimen / Unknown 07/27/2024 9:12 AM EDT 07/27/2024 9:12 AM EDT us Audelia De Luna MD LAB BLOOD ORDERABLES Final Result [facility] [address] [place] [phone] * Vitamin B6 (07/27/2024 9:12 AM EDT) Vitamin B6 3.4 2.1 - 21.7 ng/mL [facility] Comment:Vitamin supplementat ion within 24 hours prior toblood draw may affect the accuracy of the results.This test was developed and its analytical performancecharacteristics have been determined by [facility] [place], [place]. It hasnot been cleared or approved by the U.S. Food and DrugAdministration. This assay has been validated pursuantto the CLIA regulations and is used for clinicalpurposes.THIS TEST WAS PERFORMED AT:[employer]/[email or web address] [place] [address]MKNRKPSJEN MARIE MD,PHD Blood Venous blood specimen / Unknown 07/27/2024 9:12 AM EDT 07/27/2024 9:12 AM EDT us Audelia De Luna MD LAB BLOOD ORDERABLES Final Result Performing Organization Address City/[facility]/ZIP Co de Phone Number [facility] [address] [place] [phone] * (ABNORMAL) Comprehensive Metabolic Panel (07/27/2024 9:12 AM EDT) Sodium 143 135 - 145 mmol/L [facility] Potassium 4.4 3.3 - 5.1 mmol/L [facility] Chloride 109(H) 96 - 108 mmol/L [facility] Carbon Dioxide 29 22 - 29 mmol/L [facility] Anion Gap 9(L) 12 - 20 [facility] Urea Nitrogen (BUN) 14 9 - 16 mg/dL [facility] Creatinine, Serum 0.66 0.5 - 1.4 mg/dL [facility] Estimated Glomerular Filt Rate >60 [facility] Comment:Chronic Kidney Disea se: Estimated GFR < 60 mL/min/1.79k8Rjqlid Kidney Disease: Estimated GFR < 15 mL/min/1.73m2 Glucose 74 60 - 115 mg/dL [facility] Calcium 8.8 8.4 - 10.2 mg/dL [facility] Bilirubin, Total 0.5 0.0 - 1.0 mg/dL [facility] Aspartate Amino Transferase 28 5 - 31 U/L [facility] Alanine Aminotransferase 17 0 - 31 U/L [facility] Total Protein 6.0(L) 6.5 - 8.0 g/dL [facility] Albumin Level 3.8 3.5 - 5.0 g/dL [facility] Alkaline Phosphatase 42 39 - 117 U/L [facility] Blood Venous blood specimen / Unknown 07/27/2024 9:12 AM EDT 07/27/2024 9:12 AM EDT Audelia De Luna MD LAB BLOOD ORDERABLES Final Result Performing Organization Address [facility]/ZIP Co de Phone Number [facility] [address] [place] [phone] [phone] * Albumin, Random Urine W/Creatinine (07/27/2024 9:10 AM EDT) Creatinine, Urine 160.96 mg/dL [facility] Microalbumin Urine 9.0 mg/L [facility] Microalbum Creatinine Ratio Ur 5.5 <30 ug/mg cr [facility] Comment:Albumin/Creatinine R atio Reference Ranges: Normal: < 30 ug/mg creatinine Microalbuminuria: 30 - 300 ug/mg creatinineClinical Albuminuria: > 300 ug/mg creatinine Urine (Urine, Random) 07/27/2024 9:10 AM EDT 07/27/2024 9:36 AM EDT us Audelia De Luna MD LAB URINE ORDERABLES Final Result [facility] [address] [place] [phone] * (ABNORMAL) Urinalysis Complete (07/27/2024 9:10 AM EDT) Color Urine Dark Yellow [facility] Appearance Urine Clear [facility] PH 5.5 5.0 - 9.0 [facility] Glucose Urine UA Negative Negative mg/dL [facility] Urine Blood Negative Negative [facility] Specific [place] - Urine 1.025 1.005 - 1.025 [facility] Urine Protein Negative Neg-Trace mg/dL [facility] Urine Ketones Trace Negative mg/dL [facility] Nitrite Urine Negative Negative [facility] Leukocyte Esterase Urine Small (1+)(A) Negative [facility] RBC Urine 0-2 0 - 2 /HPF [facility] Urine WBC 0-5 0 - 5 /HPF [facility] Urine Squamous Epithelial Cell 0-2 0 - 2 /HPF [facility] Urine Bacteria None Seen None Seen [facility] Hyaline Casts, Urine 0-2 0 - 2 /LPF [facility] Urine (Urine, Random) 07/27/2024 9:10 AM EDT 07/27/2024 9:36 AM EDT us Audelia De Luna MD LAB URINE ORDERABLES Final Result [facility] [address] [place] [phone] * BI Mammogram Screening Tomosynthesis Bilateral (06/21/2023 9:30 AM EST) Anatomical Region Laterality Modality Breast Bilateral Mammography 06/21/2023 9:30 AM EST Narrative 07/11/2023 5:57 AM EDT ? [facility] ? [address] ?[place] [address] ? Mammography Report ? Signed ? Patient: Rut Morales ?MR#: MM ?? [id number] ? : 1950 ?Acct:[id number] ? Age/Sex: 72 / F ?ADM Date: 06/21/23 ? Loc: HO.MAMMO ? Attending Dr: Chela Lynn MD ? Ordering Physician: Chela Lynn MD ?Results: 2Beni ?? gn Findings ? Date of Service: 06/21/23 ?Follow Up: 1 Year From Orig ?? inal Mammogram ? Procedure(s): MM tomosynthesis screening BI ?? Accession Number(s): [id number] ? cc: Chela Lynn MD ? EXAMINATION: [...] 0554 ? DD/ 0930 ? TD/TT: ? Associate Counsel: ? Procedure Note Princess, Image - 07/11/2023 [facility] [address] [place] [address] [place] [address] Mammography Report Signed Patient: Rut Morales R#: [id number] : 9Acct:[id number] Age/Sex: 72 / FADM Date: 06/21/23 Loc: [facility] Attending Dr: Chela Lynn MD Ordering Physician: Chela Lynn MDResults: 2Beni gn Findings Date of Service: 06/21/23Follow Up: 1 Year From [facility] Mammogram Procedure(s): MM tomosynthesis screening BI Accession Number(s): [id number] cc: Chela Lynn MD EXAMINATION: MM SCREENING [...] in OV> 07/11/23 0554 DD/ 0930 TD/TT: Associate Counsel: Chela Lynn MD IMG BI PROCEDURES Final Resul t * Hepatitis C Antibody with Reflex to HCV, RNA, Quantitative, Real-Time PCR (06/18/2023 9:33 AM EST) Hepatitis C Antibody Nonreactive Nonreactive [facility] Comment:Antibodies to HCV no t detected; does not exclude early acuteHCV infection. Blood Venous blood specimen / Unknown 06/18/2023 9:33 AM EST 06/18/2023 2:41 PM EST Chela Lynn MD LAB BLOOD ORDERABLES Final Re sult Performing Organization Address [facility] de Phone Number [facility] [address] [place] [address] [phone] * Lipid Panel, Standard (06/18/2023 9:33 AM EST) Triglycerides 103 <150 mg/dL [facility] Comment:Desirable Triglyceri de: less than 150 mg/dLBorderline High Triglyceride 150-199 mg/dLHigh Triglyceride: 200-499 mg/dLVery High Triglyceride: greater than or equal to 5OO mg/dL Cholesterol 143 <200 mg/dL [facility] Comment:Desirable Cholestero l: less than 200 mg/dLBorderline High Cholesterol: 200-239 mg/dLHigh Cholesterol: greater than 239 mg/dL LDL Cholesterol Calculated 82 <100 mg/dL [facility] Comment:Desirable LDL: less than 100 mg/dLNear Optimal/Above Optimal LDL: 110- 129 mg/dLBorderline High LDL: 130-159 mg/dLHigh LDL: 160-189 mg/dLVery High LDL: greater than or equal to 190 mg/dL HDL Cholesterol 41 >40 mg/dL [facility] Comment:Desirable HDL: great er than 40 mg/dL Note: This HDL assay may give artificially low results in patients with liver disease. Blood Venous blood specimen / Unknown 06/18/2023 9:33 AM EST 06/18/2023 2:41 PM EST Chela Lynn MD LAB BLOOD ORDERABLES Final Re karolinet Performing Organization Address [facility] Co de Phone Number [facility] [address] [place] [address] [phone] from Last 3 Months or Most Recently Relevant to Health Maintenance Insurance [facility] MEDICARE ADVANTAGE HMO Care Teams Melangeur Operator Relationship Specialty Start Date End Date Chela Lynn MD [address] [place] [phone] PCP - General Family Medicine 06/06/23
--- OUTSIDE RECORDS SUMMARY | 2024-09-14 12:53 | XMS_ITS | Data Portability ---
Author Organization [place] - [facility], Allergy Address [address] [address] Care Team Providers Care Encoding Machine Operator Name Role Phone [facility] Primary Care Provider Assessment No assessment recorded. Plan of Treatment Reminders Order Date Submit Date Provider Last Modified By Organization Details Last Modified Time Details Appointments None recorded. Lab None recorded. Referral None recorded. Procedures None recorded. Surgeries None recorded. Imaging None recorded. Medication Orders ipratropium bromide 21 mcg (0.03 %) nasal spray 2023 024 [facility] #[id number], [address] [facility], [place], [address], 09:11:23 Patient TargetsNo targets recorded. Patient InstructionsNo instructions recorded. Reason for Referral None Reported. Problems Name Problem SNOMED Code Status Onset Date Resolution Date Notes Provider Name and Address Organization Details Recorded Time Vasomotor rhinitis 8761102 Active 2021 Vasomotor rhinitis; Note: Date Diagnosed: 07/06/2021 8:58 AM (J30.0) Not Available [facility] 4 02:56:49 Hypertrop hy of nasal turbinate s 40824326 Active 2022 Hypertroph y of nasal turbinates ; Note: Date Diagnosed: 03/15/2023 5:09 PM (J34.3) Not Available [facility] 4 02:56:46 Allergic rhinitis 33630262 Active 2022 Other allergic rhinitis; Note: Date Diagnosed: 03/15/2023 5:09 PM (J30.89) Not Available [facility] 4 02:56:48 Nasal congestio n 24691914 Active 2023 TREASURE ROMAN MD [address] [facility],[place] [address], [facility] [place], [address] , [facility] 4 09:05:55 Anterior rhinorrhe a 497815573 Active 2023 TREASURE ROMAN MD [address] [place] [address],[place] [address], [facility] [place], [address] , [facility] 4 09:06:59 Problem Notes None recorded. Procedures Surgical History Date Name Laterality Status Provider Name and Address Organization Details Recorded Time 11/11/2023 NasalEndos copy_DP completed TREASURE ROMAN MD [address] [place] [address],[place] [address], [place], [address], [facility] 11/11/2023 09:14:27 Imaging Results None recorded. Procedure Notes None recorded. Medical Equipment None Reported. Allergies Allergen ID Allergen Name Allergen Category Reaction Reaction Severity Criticality Documentation Date Start Date Code Code System Note Provider Name and Address Organization Details Recorded Time 752680 Product containin g penicilli n (product) medicatio n other Not available Not available 09/10/2023 01439 8001 SNOMED React ion: other react ion, Unkno wn; Not Available [facility] 4 01:12:17 978557 morphine medicatio n other Not available Not available 09/10/2023 7052 RxNorm React ion: other react ion, Unkno wn; Not Available [facility] 4 01:12:18 Medications Name Sig Start Date Stop Date Status Note LastModified by Organization Details LastModified Time pramipexol e 1 mg tablet 2021 active Medicatio n ID: [id number] Br and Name: pramipexo le Send Method: [...] Updated DateTime 11/11/2023 157.48 cm 28.3 kg/m2 31354.82 g Nathaniel Carlson [place] - [facility] 11/11/2023 08:51:32 Social History None recorded. Functional [...] Note 7835 TREASURE ROMAN MD [facility] of [address] [address] 11/11/2023 08:43:17 11/11/2023 09:24:33 Nasal congestion 92624925 R09.81 Nasal endo negative for polyps and purulence. She may have vasomotor rhinitis. I would consider azelastine if not improved. Anterior rhinorrhea 2772 37084 J34.89 Likely vasomotor rhinitos. No hx of trauma or surgery. Vasomotor rhinitis 39820 03 J30.0 Her symptoms are most consistnet with vasomotor rhinitis. I recommend a trial of iprtropium . Health Concerns Section Related Observation LastModified by Organization Detai ls LastModified Time None Recorded Concern Status LastModified by Organization Details LastModified Time None Recorded Advance Directives Directive None Recorded Payers Insurance Date Sequence Insurance Name Policy Number Policy Clark Covered Member ID Clark Member ID Guarantor Name 03/27/2024 1 [facility] MEDICARE HMO BLUE (MEDICARE REPLACEMENT HMO) [id number] Rut Morales [id number] Rut Morales Notes Date Note Type [...] of abx for sinusitis. TREASURE ROMAN MD [address] [place] [address], [place], [address], [place] [facility] 11/11/2023 09:14:43 OBGyn Episode No OBEpisode recorded.
--- OUTSIDE RECORDS SUMMARY | 2024-09-14 12:53 | XMS_ITS | Encounter Summary ---
Author Organization [employer] Address [address] [place] [address] [address] [place] [address] Care Team Providers Care Slot Machine Key Person Name Role Phone Chela Lynn MD Primary Care Provider [phone] Reason for Referral * Imaging (Routine) - Closed Specialty Diagnoses / Procedures Referred By Contac t Referred To Contact Radiology Diagnoses Episodic cluster headache, not intractable Procedures CT Head w/o Contrast Audelia De Luna MD [address] [place] [address] Phone: tel: fax: [address] Phone: tel: fax: Referral ID Status Reason Start Date Expiration Date Visits Re quested Visits Authorized [id number] Closed 08/27/2023 08/26/2024 1 1 Encounter Details Date Type Department Care Team (Late st Contact Info) Description 08/27/2023 Orders Only [facility] MED & PEDS [address] [place] [address] Audelia De Luna MD [address] [place], [place] [phone] Episodic cluster headache, not intractable (Primary Dx) [...] (02/06/2024 11:56 AM EDT) Pathologist [facility] C Reactive Protein 1.96(H) < or = 0.50 mg/dL [facility] 02/06/2024 11:5 6 AM EDT 02/06/2024 12:02 PM EDT Generic External Data Provider LAB BLOOD ORDERAB LES Final Result Performing Organization Address [facility]/ZIP Co de Phone Number [facility] [address] [place] [phone] * Creatine Kinase, Total (02/06/2024 11:56 AM EDT) [facility] Creatine Kinase Total 79 26 - 140 U/L [facility] 02/06/2024 11:5 6 AM EDT 02/06/2024 12:02 PM EDT Generic External Data Provider LAB BLOOD ORDERAB LES Final Result Performing Organization Address [facility] Co de Phone Number [facility] [address] [place] [phone] * Prothrombin Time-INR (02/06/2024 11:56 AM EDT) Pathologist [facility] Prothrombin Time 12.4 10.9 - 12.4 SEC [facility] INTERNATIONAL NORM RATIO 1.1 0.9 - 1.1 [facility] Comment:INTERNATIONAL NORMAL IZED RATIO (INR) [...] Provider LAB BLOOD ORDERAB LES Final Result [facility] [address] [place] [address] [phone] * (ABNORMAL) Comprehensive Metabolic Panel (02/06/2024 11:56 AM EDT) Sodium 136 135 - 145 mmol/L [facility] Potassium 4.1 3.3 - 5.1 mmol/L [facility] Chloride 101 96 - 108 mmol/L [facility] Carbon Dioxide 30(H) 22 - 29 mmol/L [facility] Anion Gap 9(L) 12 - 20 [facility] Urea Nitrogen (BUN) 17(H) 9 - 16 mg/dL [facility] Creatinine, Serum 0.69 0.5 - 1.4 mg/dL [facility] Creatinine Clr Calc Pharmacy 60.9 [facility] Comment:Provided height and weight: 157.48 cm,61.689 kg.eGFR (calculated from the MDRD study equation) and eCrCl(calculated from the Cockcroft-Gault equation) are based ondifferent parameters and may not yield comparable results.If eCrCl result is absurd, please check patient'sheight/weight. Estimated Glomerular Filt Rate >60 [facility] Comment:NOTE: For -Am erican individuals, multiply the result by 1.210.Chronic Kidney Disease: Estimated GFR < 60 mL/min/1.51r0Rppzsq Kidney Disease: Estimated GFR < 15 mL/min/1.73m2 Glucose 92 60 - 115 mg/dL [facility] Calcium 9.7 8.4 - 10.2 mg/dL [facility] Bilirubin, Total 1.1(H) 0.0 - 1.0 mg/dL [facility] Aspartate Amino Transferase 20 5 - 31 U/L [facility] Alanine Aminotransferase 11 0 - 31 U/L [facility] Total Protein 5.9(L) 6.5 - 8.0 g/dL [facility] Albumin Level 3.7 3.5 - 5.0 g/dL [facility] Alkaline Phosphatase 65 39 - 117 U/L [facility] 02/06/2024 11:5 6 AM EDT 02/06/2024 12:02 PM EDT us Generic External Data Provider LAB BLOOD ORDERAB LES Final Result [facility] [address] [place] [phone] * (ABNORMAL) CBC auto differential (02/06/2024 11:56 AM EDT) White Blood Count 9.6 4.8 - 10.8 X10*3/uL [facility] Red Blood Count 4.64 4.20 - 5.50 X10*6/uL [facility] Hemoglobin 14.2 12.0 - 16.0 g/dl [facility] Hematocrit 43.0 37.0 - 47.0 % [facility] Mean Corpuscular Volume 92.7 80.0 - 98.0 fL [facility] Mean Corpuscular Hemoglobin 30.6 27.0 - 33.0 pg [facility] Mean Corpuscular HGB Conc 33.0 31.0 - 35.0 g/dl [facility] Red Cell Distribution Width 14.4 11.0 - 16.0 % [facility] Platelet Count 317 160 - 400 X10*3/uL [facility] Mean Platelet Volume 9.6 9.4 - 12.3 fL [facility] Neutrophils Percent Auto 66.2 45 - 73 % [facility] Imm Gran Pct Auto 0.4 0.0 - 0.4 % [facility] Lymphocytes Percent Auto 21.5 20 - 40 % [facility] Monocytes Percent Auto 10.7 2 - 11 % [facility] Eosinophils Percent Auto 0.8 0 - 4 % [facility] Basophils Percent Auto 0.4 0 - 2 % [facility] NRBC Pct Auto 0.0 0.0 - 0.2 /100WBC [facility] Neutrophils Absolute Auto 6.4 2.0 - 8.3 x10*3/uL [facility] Imm Gran Abs Auto 0.04(H) 0.00 - 0.03 X10*3/uL [facility] Lymphocytes Absolute Auto 2.1 1.2 - 4.9 X10*3/uL [facility] Monocytes Absolute Auto 1.0 0.1 - 1.2 X10*3/uL [facility] Eosinophils Absolute Auto 0.1 0.0 - 0.4 X10*3/uL [facility] Basophils Absolute Auto 0.0 0.0 - 0.2 X10*3/uL [facility] NRBC Abs Auto 0.000 0.0 - 0.012 X10*3/uL [facility] 02/06/2024 11:5 6 AM EDT 02/06/2024 12:02 PM EDT us Generic External Data Provider LAB BLOOD ORDERAB LES Final Result Performing Organization Address [facility] Co de Phone Number [facility] [address] [place] [phone] * CT Head w/o Contrast (10/08/2023 8:00 AM EDT) Anatomical Region Laterality Modality Head, Neck Computed Tomogra phy 10/08/2023 8:00 AM EDT Narrative 10/23/2023 5:32 PM EDT ? [facility] ?[address] ?[place] [address] ? CT Scan Report ? Signed ? Patient: Stefanowich,Rut G ?MR#: [id number] ?? [id number] ? : 1950 ?Acct:[id number] ? Age/Sex: 73 / F ?ADM Date: 10/08/23 ? Loc: HO.CT ? Attending Dr: Audelia De Luna MD ? Ordering Physician: Audelia De Luna MD ?? Date of Service: 10/08/23 ?? Procedure(s): CT head/brain wo IV con ?? Accession Number(s): [id number] ? cc: Audelia De Luna MD; Chela [...] ?10/23/238 ? DD/ 0800 ? TD/TT: ? Turbine Room Attendant: DZ ? Procedure Note Princess, Paco - 10/23/[address] [address] [address] Scan Report Signed Patient: Rut Morales GMR#: [id number] : 9Acct:[id number] Age/Sex: 73 / FADM Date: 10/08/23 Loc: HO.CT Attending Dr: Audelia De Luna MD Ordering Physician: Audelia eD Luna MD Date of Service: 10/08/23 Procedure(s): CT head/brain wo IV con Accession Number(s): [id number] cc: Audelia De Luna MD; Chela Lynn [...] in OV> 10/23/23 1728 DD/ 0800 TD/TT: Turbine Room Attendant: OLEKSANDR us Audelia De Luna MD IMG CT PROCEDURES Final Res ult documented in this encounter Visit Diagnoses Diagnosis Episodic cluster headache, not intractable- Primary documented in this encounter Additional Health Concerns Assessment Noted Time PHQ-9 Depression Total Score: 2 06/06/19 10:37 AM EST documented as of this encounter Care Teams Slot Machine Key Person Relationship Specialty Start Date End Date Chela Lynn MD [address] [place] [address] PCP - General Family Medicine 06/06/23 documented as of this encounter
--- OUTSIDE RECORDS SUMMARY | 2024-09-14 12:53 | XMS_ITS | Encounter Summary ---
Author Organization [employer] Address [address] [facility] 7t [place] [address] Care Team Providers Care Frame Catcher Name Role Phone Chela Lynn MD Primary Care Provider Reason for Visit * Reason Onset Date Comments Nurse Triage 07/20/2024 Encounter Details Date Type Department Care Team ([facility] st Contact Info) Description 07/20/2024 Telephone [facility] MEDICINE [address] [place] [address] Chela Lynn MD [address] [place] [address] Nurse Triage Social History Tobacco Use Types [...] become worse * Telephone Encounter - Wolfgang Marley - 07/20/2024 10:38 AM EDT Symptoms: Foot or Ankle Swelling, Numbness Outcome: Schedule an urgent appointment (within 1 hour) or talk to a nurse or provider soon Reason: Trouble walking The caller accepted this outcome. Contact pt at [phone] documented in this encounter Plan of Treatment Not on file documented as of this encounter Visit Diagnoses Not on filedocumented in this encounter Additional Health Concerns Assessment Noted Time PHQ-9 Depression Total Score: 2 06/06/19 10:37 AM EST documented as of this encounter Care Teams Frame Catcher Relationship Specialty Start Date End Date Chela Lynn MD [address] [place] [phone] PCP - General Family Medicine 06/06/23 documented as of this encounter
--- OUTSIDE RECORDS SUMMARY | 2024-09-14 12:53 | XMS_ITS | Encounter Summary ---
Author Organization [employer] Address [address] [facility] 7t [place] [address] Care Team Providers Care Supervisor Pipe Joints Name Role Phone Chela Lynn MD Primary Care Provider [phone] Reason for Visit * Reason Onset Date Comments Med Refill 07/27/2023 Encounter Details Date Type Department Care Team ([facility] st Contact Info) Description 07/27/[address] [facility] CHC MED & PEDS [address] [place], [place] [phone] Chela Lynn MD [address] [place] [address] Lumbosacral spondylosis without myelopathy Social History Tobacco [...] documented as of this encounter Care Teams Supervisor Pipe Joints Relationship Specialty Start Date End Date Chela Lynn MD [address] [place] [phone] PCP - General Family Medicine 06/06/23 documented as of this encounter
--- OUTSIDE RECORDS SUMMARY | 2024-09-14 12:53 | XMS_ITS | Encounter Summary ---
Author Organization [employer] Address [address] [facility] 7t [place] [address] Care Team Providers Care Apprentice Painter Hand Name Role Phone Chela Lynn MD Primary Care Provider [phone] Reason for Visit * Reason Onset Date Comments Medication Question 08/23/2023 Encounter Details Date Type Department Care Team ([facility] st Contact Info) Description 08/23/2023 Telephone [facility] MEDICINE [address] [place] [address] Chela Lynn MD [address] [place] [address] Medication Question Social History Tobacco Use Types [...] with the injection. Please contact pt at [phone]. documented in this encounter Plan of Treatment Not on file documented as of this encounter Visit Diagnoses Not on filedocumented in this encounter Additional Health Concerns Assessment Noted Time PHQ-9 Depression Total Score: 2 06/06/19 24 10:37 AM EST documented as of this encounter Care Teams Apprentice Painter Hand Relationship Specialty Start Date End Date Chela Lynn MD [address] [place] [phone] PCP - General Family Medicine 06/06/23 documented as of this encounter
--- OUTSIDE RECORDS SUMMARY | 2024-09-14 12:53 | XMS_ITS | Encounter Summary ---
Author Organization [employer] Address [address] [facility] 7t [place] [address] Care Team Providers Care Community Organizer Name Role Phone Chela Lynn MD Primary Care Provider [phone] Reason for Visit * Reason Comments Med Change Request Encounter Details Date Type Department Care Team ([facility] Contact Info) Description 09/18/2023 Refill [facility] CH[facility] MED & PEDS [address] [place], [place] [phone] Chela Lynn MD [address] [place] [address] Stuffy and runny nose Social History Tobacco [...] is your housing situation today? I have dadateri roberson 05/28/[address] you [...] documented as of this encounter Care Teams Community Organizer Relationship Specialty Start Date End Date Chela Lynn MD [address] [place] [address] PCP - General Family Medicine 06/06/23 documented as of this encounter
--- OUTSIDE RECORDS SUMMARY | 2024-09-14 12:53 | XMS_ITS | Encounter Summary ---
Author Organization [employer] Address [address] [facility] 7t [place] [address] Care Team Providers Care Light Coil Winder Name Role Phone Chela Lynn MD Primary Care Provider Encounter Details Date Type Department Care Team ([facility] st Contact Info) Description 08/04/2024 Orders Only [facility] CHC MED & PEDS [address] [place], [place] [phone] Audelia De Luna MD [address] [place] [address] Acquired hypothyroidism (Primary Dx) Social History Tobacco [...] documented as of this encounter Care Teams Light Coil Winder Relationship Specialty Start Date End Date Chela Lynn MD [address] [place] [address] PCP - General Family Medicine 06/06/23 documented as of this encounter
--- OUTSIDE RECORDS SUMMARY | 2024-09-14 12:53 | XMS_ITS | Encounter Summary ---
Author Organization [employer] Address [address] [facility] 7t [place] [address] Care Team Providers Care Concrete Pipe Plant Supervisor Name Role Phone Chela Lynn MD Primary Care Provider [phone] Reason for Visit * Reason Comments Med Refill Encounter Details Date Type Department Care Team ([facility] Contact Info) Description 04/24/2024 Refill [facility] CHC MED & PEDS [address] [place], [place] [phone] Chela Lynn MD [address] [place] [address] Social History Tobacco Use Types Packs/Day Years [...] documented as of this encounter Care Teams Concrete Pipe Plant Supervisor Relationship Specialty Start Date End Date Chela Lynn MD [address] [place] [address] PCP - General Family Medicine 06/06/23 documented as of this encounter
--- OUTSIDE RECORDS SUMMARY | 2024-09-14 12:53 | XMS_ITS | Encounter Summary ---
Author Organization [employer] Address [address] [facility] 7t [place] [address] Care Team Providers Care Air Force Pilot Name Role Phone Chela Lynn MD Primary Care Provider [phone] Reason for Visit * Reason Onset Date Comments Med Refill 04/01/2024 Encounter Details Date Type Department Care Team ([facility] st Contact Info) Description 04/01/2024 Telephone [facility] MEDICINE [address] [place] [address] Chela Lynn MD [address] [place] [address] Med Refill Social History Tobacco Use Types [...] 04/01/2024 3:54 PM EST Medication sent to [facility] on 02/03/24 #180 with 1 refill. * Telephone Encounter - Lucy Anderson - 04/01/2024 3:52 PM EST TC from pt requesting medication refill. Medications needing refill : Oyster Shell Calcium + D3 500-10 MG-MCG tablet To be sent to: [facility] documented in this encounter Plan of Treatment Not on file documented as of this encounter Visit Diagnoses Not on filedocumented in this encounter Additional Health Concerns Assessment Noted Time PHQ-9 Depression Total Score: 2 06/06/19 10:37 AM EST documented as of this encounter Care Teams Air Force Pilot Relationship Specialty Start Date End Date Chela Lynn MD [address] [place] [address] PCP - General Family Medicine 06/06/23 documented as of this encounter
--- OUTSIDE RECORDS SUMMARY | 2024-09-14 12:53 | XMS_ITS | Encounter Summary ---
Author Organization [employer] Address [address] [facility] 7t [place] [address] Care Team Providers Care Equipment Superintendent Name Role Phone Chela Lynn MD Primary Care Provider [phone] Reason for Visit * Reason Onset Date Comments Results 02/19/2024 Encounter Details Date Type Department Care Team ([facility] Contact Info) Description 02/19/2024 Telephone [facility] MEDICINE [address] [place] [address] Chela Lynn MD [address] [place] [address] Results Social History Tobacco Use Types Packs/Day [...] a follow up. Please contact pt at [phone]. * Telephone Encounter - Nathan Carvajal - 02/19/2024 9:41 AM EDT TC from pt requesting call back regarding Results. Type of results: Labs Date when done: 02/18/24 Facility: [facility] Labs - Type of results: XR Date when done: 02/18/24 Facility: [facility] [place] [facility] documented in this encounter Plan of Treatment Not on file documented as of this encounter Visit Diagnoses Not on filedocumented in this encounter Additional Health Concerns Assessment Noted Time PHQ-9 Depression Total Score: 2 06/06/19 10:37 AM EST documented as of this encounter Care Teams Equipment Superintendent Relationship Specialty Start Date End Date Chela Lynn MD [address] [place] [address] PCP - General Family Medicine 06/06/23 documented as of this encounter
--- OUTSIDE RECORDS SUMMARY | 2024-09-14 12:53 | XMS_ITS | Data Portability ---
Author Organization [facility] Pain [facility]agem [facility], PAIN OFFICE Address [address] [facility],[address] [address] Care Team Providers Care Tank Officer Name Role Phone BROOKE LUTZ Referring Provider [facility] Primary Care Provider Assessment Encounter Date [...] By Organization Details Last Modified Time 04/07/2015 70039 She was advised against bed rest lasting longer than four days and to continue activities as tolerated. [email or web address] Not available 04/07/2015 15:42:42 Reason for Referral None Reported. Results Created Date Observation Date Name Description Value Unit Range Abnormal Flag Note LastModifiedBy Organization Detail LastModifiedTime 06/16/19 16 MRI, lumba r spine No observ ation record ed. [facility] [address], [place], [address], 07/13/2015 13:43:24 Result Notes None recorded. Problems Name Problem SNOMED Code Status Onset Date Resolution Date Notes Provider Name and Address Organization Details Recorded Time Lumbosacral radiculitis 37501526 Active Mariano mishra MD [address] [facility] , [address], [place], [address], [place] [facility] 5 15:55:08 Spinal stenosis of lumbar region 89815967 Active Mariano mishra MD [address] , [address], [place], [address], [place] [facility] 5 15:55:08 Displacement of lumbar intervertebral disc without myelopathy 59751183 Active Mariano mishra MD [address] , [address], [place], [address], [place] [facility] 5 15:55:08 Lumbosacral spondylosis without myelopathy 94908170 Active Mariano mishra MD [address] , [address], [place], [address], [place] [facility] [...] Imaging Date Name Status [facility]Modified by [facility] Details LastModified Time 06/16/2015 MRI, lumbar spine completed [facility] [address], [place], [address], 07/13/2015 13:43:24 Procedure Notes None recorded. Medical Equipment None Reported. Allergies Allergen ID Allergen Name Allergen Category Reaction Reaction Severity Criticality Documentation Date Start Date Code Code System Note Provider Name and Address Organization Details Recorded Time 08908 Product containin g penicilli n (product) medicatio n Not available Not available Not available 04/07/2015 32985 8001 SNOMED Betty Corcoran null, [place] - [place] [...] Address Organization Details Last Updated DateTime 5 97413.7 029 g 96 % 96 % 157.48 cm 31.1 kg/m2 74 /min 111 mm[Hg] 66 mm[Hg] Betty Corcoran [place] [facility] 5 14:22:21 Social History Question Answer Notes LastModified by Organizat ion Details LastModified Time Tobacco Smoking Status Former Smoker Quit x 30 years Not Available [employer] 02/12/2020 03:16:11 Which Illicit Or Recreational Drugs Have You Used? No [id number] Information not available 02/12/2020 Education 12 Information no t available 04/07/2015 Live Alone Or With Others? With Others Information not available 04/07/2015 [email or web address] In[facility] n not available 04/07/2015 How Many Years Have You Smoked Tobacco? 15 [id number] Information not available 02/12/2020 Sex: Unknown Functional Status Question Answer Note LastModified by Organization D etails LastModified Time What is your level of alcohol consumption? None [id number] Information not available 02/12/2020 Are you currently employed? No [id number] Information not available 02/12/2020 Mental Status None recorded. Family History Relationship Description Onset Age of this Age Resolved Age Notes LastModified by Organization Details LastModified Time Mother Heart disease [email or web address] Not available 03/29 15:41:13 Father Heart disease [email or web address] Not available 03/29 15:41:13 Medical History Condition Response Headache Y Migrane Y Arthritis Y GERD/Reflux Y Depression Y Hypothyroidism Y Gynecological HistoryNo gynecological history recorded. Obstetrics History GPAL:G 0 P 0 0 0 0 Past Encounters Encounter ID Performer Location Encounter Start Date Encounter Closed Date Diagnosis/Indication Diagnosis SNOMED-CT Code Diagnosis ICD10 Code Diagnosis Note [id number] Mariano Pratt MD PAIN OFFICE [address] [place] [address] [place] [address] 04/07/2015 13:31:37 04/13/2015 15:56:09 Displacement of lumbar intervertebral disc without myelopathy 50812399 M51.26 Lumbosacra l radiculitis 28694380 M54.17 Lumbosacra l spondylosis without myelopathy 42164439 M47.817 Spinal parth nosis of lumbar region 74167324 M48.06 Health Concerns Section Related Observation LastModified by Organization Detai ls LastModified Time None Recorded Concern Status LastModified by Organization Details LastModified Time None Recorded Advance Directives Directive None Recorded Payers Encounter Date Sequence Insurance Name Policy Number Policy Clark Covered Member ID Clark Member ID Guarantor Name 04/07/2015 1 [place]IC[place] B-[place] [employer] Rut Morales [id number] Rut Morales Notes Date Note Type [...] numbness in her left foot. 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
== END ==
LOC: HO.CARD 12:32
PROVIDERS: PCP Family Medicine; Visit Provider Internal Medicine
DX: R60.0 Localized edema (principal)
CPT/HCPCS: 93306

== ENCOUNTER → 2024-09-14 12:35 | Outpatient (BNV) | payer MEDICARE, SELFPAY | PROVIDERS: PCP Family Medicine; Visit Provider Internal Medicine | DX: I42.2 Other hypertrophic cardiomyopathy (principal); I34.0 Nonrheumatic mitral (valve) insufficiency | CPT/HCPCS: 93306 ==

== ENCOUNTER 2024-11-23 09:03 | Outpatient (REF) | payer MEDICARE, SELFPAY ==
--- OUTSIDE RECORDS SUMMARY | 2024-11-24 09:27 | XMS_ITS | Encounter Summary ---
Author Organization [employer] Address [address] [facility] 7t [place] [address] Care Team Providers Care Electronics Repair Technician Name Role Phone Chela Lynn MD Primary Care Provider [phone] Encounter Details Date Type Department Care Team ([facility] st Contact Info) Description 08/04/2024 Orders Only [facility] MED & PEDS [address] [place], [place] [id number] Audelia De Luna MD [address] [place] [address] Acquired hypothyroidism (Primary Dx) Social History Tobacco [...] documented as of this encounter Care Teams Electronics Repair Technician Relationship Specialty Start Date End Date Chela Lynn MD [address] [place] [address] PCP - General Family Medicine 06/06/23 documented as of this encounter
--- OUTSIDE RECORDS SUMMARY | 2024-11-24 09:27 | XMS_ITS | Data Portability ---
Author Organization [facility] Address [address] [facility] [address] [place] [address] Care Team Providers Care Detail Supervisor Name Role Phone BROOKE LUTZ Referring Provider [phone] [facility] Primary Care Provider Assessment Encounter Date Assessment Date Assessment LastModified by Organization Details LastModified Time 04/07/2015 04/07/2015 Rut Morales is a 64old woman with complaints of low back pain radiating into both lower extremities with numbness in left foot. On exam, she has pain on flexion and a positive straight leg raising test on the right. I recommend a MRI lumbar spine to elucidate the cause of her pain. Due to insurance issues, I request the [...] By Organization Details Last Modified Time 04/07/2015 70840 She was advised against bed rest lasting longer than four days and to continue activities as tolerated. [email or web address] Not available 04/07/2015 15:42:42 Reason for Referral None Reported. Results Created Date Observation Date Name Description Value Unit Range Abnormal Flag Note LastModifiedBy Organization Detail LastModifiedTime 06/16/19 16 MRI, lumba r spine No observ ation record ed. [facility] [address], [place], [address], 07/13/2015 13:43:24 Result Notes None recorded. Problems Name Problem SNOMED Code Status Onset Date Resolution Date Notes Provider Name and Address Organization Details Recorded Time Lumbosacral radiculitis 05498705 Mitesh mishra MD [address] [facility] , [address], [place], [address], [place] [facility] 5 15:55:08 Spinal stenosis of lumbar region 51317575 Active Mariano mishra MD [address] [facility] , [address], [place], [address], [place] [facility] 5 15:55:08 Displacement of lumbar intervertebral disc without myelopathy 21314901 Active Mariano mishra MD [address] [facility] , [address], [place], [address], [place] [facility] 5 15:55:08 Lumbosacral spondylosis without myelopathy 36738682 Mitesh mishra MD [address] [facility] , [address], [place], [address], [place] [facility] 5 15:55:08 Problem Notes None recorded. Procedures Surgical History Date Name Laterality Status Provider Name and Address Organization Details Recorded Time Thyroid Surgery completed Betty Corcoran [place] [facility] 04/07/2015 14:33:55 Gastric Bypass completed Betty Corcoran M A [facility] 04/07/2015 14:33:55 Cholecystectomy completed Betty Corcoran [place] [facility] 04/07/2015 14:33:55 Breast Surgery completed Btety Norris A - [facility] 04/07/2015 14:33:55 Hysterectomy completed Betty Corcoran [place] - [facility] 04/07/2015 14:33:55 Caesarean Section completed Betty wolfe [place] - [facility] 04/07/2015 14:33:55 Imaging Results None recorded. Procedure Notes None recorded. Medical Equipment None Reported. Allergies Allergen ID Allergen Name Allergen Category Reaction Reaction Severity Criticality Documentation Date Start Date Code Code System Note Provider Name and Address Organization Details Recorded Time 06092 Product containin g penicilli n (product) medicatio n Not available Not available Not available 04/07/2015 58811 8001 SNOMED Betty Pricemark barlow, [place] [facility] 5 14:33:55 [...] Body mass index (BMI) Heart rate Systolic And Diastolic Provider Name and Address Organization Details Last Updated DateTime 5 60670.7 029 g 96 % 96 % 157.48 cm 31.1 kg/m2 74 /min 111/66 mm[Hg] Betty Pricezier [place] [facility] 5 14:22:21 Social History Question Answer Notes LastModified by Organizat ion Details LastModified Time Tobacco Smoking Status Former Smoker Quit x 30 years Not Available [employer] 02/12/2020 03:16:11 Which Illicit Or Recreational Drugs Have You Used? No [id number] Information not available 02/12/2020 Education 12 Information no t available 04/07/2015 Live Alone Or With Others? With Others [email or web address] Information not available 04/07/2015 Marital Status [email or web address] Informatio n not available 04/07/2015 How Many Years Have You Smoked Tobacco? 15 [id number] Information not available 02/12/2020 Sex: Unknown Functional Status Question Answer Note LastModified by Organization D etails LastModified Time What is your level of alcohol consumption? None [id number] Information not available 02/12/2020 Are you currently employed? No [id number] Information not available 02/12/2020 Mental Status None [...] SNOMED-CT Code Diagnosis ICD10 Code Diagnosis Note [id number] Mariano Pratt MD [facility] [address] [place] [address] [place] [address] 04/07/2015 13:31:37 04/13/2015 15:56:09 Displacement of lumbar intervertebral disc without myelopathy 06963785 M51.26 Lumbosacra l radiculitis 82857012 M54.17 Lumbosacra l spondylosis without myelopathy 95182471 M47.817 Spinal parth nosis of lumbar region 38970446 M48.06 Health Concerns Section Related Observation LastModified by Organization Detai ls LastModified Time None Recorded Concern Status LastModified by Organization Details LastModified Time None Recorded Advance Directives Directive None Recorded Payers Insurance Date Sequence Insurance Name Policy Number Policy Clark Covered Member ID Clark Member ID Guarantor Name 04/13/2015 1 [place] B-[place]: [facility] Rut Morales [id number] Rut Morales 04/08/2015 2 MED[place]: [facility] Rut Morales [id number] Rut Morales OBGyn Episode No OBEpisode recorded.
--- OUTSIDE RECORDS SUMMARY | 2024-11-24 09:28 | XMS_ITS | Clinical Summary ---
Author Organization [facility] Address [address] [place] [address] Phone Care Team Providers Care Wigs Salesperson Name Role Phone Annette Castillo NP Primary Care Provider + Allergies Active Allergy Reactions Criticality Noted Date Comments Morphine 12/28/2021 Penicillins 12/28/2021 Medications predniSONE (DELTASONE) 5 MG tablet take 12 tablets by mouth for one day, then take 11 tablets by mouth the next day, then 1 tablet less by mouth until done 78 tablet 12/28/2021 Active Social History Tobacco Use Types Packs/Day Years Used Date Smoking Tobacco: Never Assessed Education Answer Date Recorded Are you interested in more education? Not on aneudy e 08/24/2022 Are you concerned about learning? Not on file 08/24/2022 No 08/24/2022 No 08/24/2022 Digital Access Answer Date Recorded No 09/24/2022 No 09/24/2022 No 09/24/2022 Reliable internet access at home? Not on file 09/24/2022 Device with a working camera? Not on file Comments Unknown Sex and Gender Information Value Date Recorded Sex Assigned at Female 12/28/2021 3:26 PM EDT Legal Sex Female 10:05 PM EDT Gender Identity Female 12/28/2021 3:26 PM EDT Sexual Orientation Not on file Last Filed Vital Signs Vital Sign Reading Time Taken Comments Blood Pressure 108/73 12/28/2021 6:58 PM EDT Pulse 61 12/28/2021 6:58 PM EDT Temperature 36.9 C (98.4 F) 12/28/2021 3:24 PM EDT Respiratory Rate 20 12/28/2021 3:24 PM EDT Oxygen Saturation 97% 12/28/2021 6:58 PM EDT Inhaled Oxygen Concentration - - Weight 74.8 kg (165 lb) 12/28/2021 3:25 PM EDT Height 157.5 cm (5' 2 ) 12/28/2021 3:25 PM EDT Body Mass Index 30.18 12/28/2021 3:25 PM EDT Plan of Treatment Not on file Medical Devices Not on file [place] H[place] BLUE REPLAC[place] [address] [address] MEDICARE HMO BLUE REPLACEMENT [address] [place] [address] MEDICARE O BLUE REPLACEMENT [place] [address] MEDICARE O BLUE REPLACEMENT [address] [place] [address] MEDICARE HMO [address] [place] [address] MEDICARE O BLUE REPLACEMENT [place] [address] MEDICARE HMO BLUE REPLACEMENT [place] BLUE [place]ACEMENT Care Teams Wigs Salesperson Relationship Specialty Start Date End Date Annette Castillo NP [address] [place] [address] PCP - General Family Medicine 12/28/21 Additional Source Comments The information contained in this document represents components of the legal health record. It is not the complete legal health record.[facility]
--- OUTSIDE RECORDS SUMMARY | 2024-11-24 09:28 | XMS_ITS | Patient Health Record ---
Author Organization [facility] Address [address] [place] [address] Care Team Providers Care Electronics Inspector Name Role Phone Ricardo Leblanc MD Primary Care Provider Unavail able Ignacio Monae Unavailable [phone] Allergies Allergen (clinical drug ingredient) Drug/Non Drug Allergy documented on EMR Reaction Allergy Type Onset Date Status Penicillin Unknown Drug Allergy Active Reason For Referral No Information Medications Medication SIG (Take, Route, Frequency, Duration) Notes Start Date End Date Status Vitamin D 04/29/2024 04/29/2024 Active Multi Vitamin/Minerals 04/29/20242024 Active Duragesic-25 Active Inderal LA Active Synthroid Active Neurontin Active Problems Problem Type SNOMED Code ICD Code Onset Dates Problem Status W/U Status Risk Notes Problem Blood in stool (723081232) Blood in stool (578.1) Active confirmed Problem Diarrhea (88653859) Diarrhea (787.91) Active confirmed Problem Nonspecific abnormal finding in stool contents (792.1) Active confirmed Problem Abnormal findings diagnostic imaging of liver and biliary tract (246995045) Nonspecific abnormal findings on radiological and other examination of biliary tract (793.3) Active confirmed Plan Of Treatment Pending Test Test Name Order Date LIVER PROFILE 09/07/2011 AMYLASE 09/07/2011 LIPASE 09/07/2011 CBC w DIFF 09/07/2011 Future Test Test Name Order Date COLONOSCOPY 09/27/2011 Insurance Providers Payer Name Payer Address Payer Phone Subscriber Number Group Number Insured Name Patient Relationship to Insured Coverage Start Date Coverage End Date MEDICARE OF [facility] [address] [place] [address] [id number] HAWK HERNANDEZ Self - patient is the insured MEDICAID OF [facility] [address] [place] [address] [id number] HAWK HERNANDEZ Self - patient is the insured Medical (General) History Medical History History ICD Code colonoscopy 06-04-2005-screening-negative for polyps Diverticulosis Hypothyroidism Leg cramps Migraines Back pain Denies FL,DM,CVA,Lung disease,renal dise ase Surgical History Surgery Date(Month/Year) [facility] Thyroidectomy 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
== END 2024-11-23 09:04 | disposition home or self-care (01) ==
LOC: HO.HOSX 09:03
PROVIDERS: Visit Provider Physician Assistant
DX: Z13.89 Encounter for screening for other disorder (principal)

== ENCOUNTER 2025-01-26 09:14 | Outpatient (REF) | payer MEDICARE, SELFPAY ==
--- OUTSIDE RECORDS SUMMARY | 2025-01-26 10:00 | XMS_ITS | Clinical Summary ---
Author Organization [employer] Address [address] [facility] 7t [place] [address] Care Team Providers Care Cloth Hauler Name Role Phone Chela Lynn MD Primary Care Provider Allergies Active Allergy Reactions Criticality Noted Date Comments Morphine Other 12/28/2021 nausea vomiting morphine Penicillins Unknown,Other 12/28/2021 Product containing penicillin (product) Medications * This document contains information received from the source organization and may not represent a complete record from that organization. TURMERIC PO Take 1,500 mg by mouth 2 times daily. Active mometasone (Nasonex) 50 MCG/ACT nasal sprayIndications: Stuffy and runny nose Administer 1-2 sprays into each nostril Once per day. 17 g 2 09/18/19 24 Active ipratropium (Atrovent) 0.03 % nasal spray [...] day. 90 capsule 1 04/16/20 24 Active levothyroxine (Synthroid) 100 MCG tabletIndications :Acquired [...] with food. 42 tablet 08/27/19 25 Active allopurinol (Zyloprim) 100 MG tablet TAKE 1 TABLET BY MOUTH EVERY DAY 90 tablet 1 10/21/19 25 Active traZODone (Desyrel) 100 MG tabletIndications :Insomnia, unspecified type TAKE ONE TABLET AT BEDTIME 90 tablet 1 11/05/19 25 Active pregabalin (Lyrica) 75 MG capsule Take 1 capsule (75 mg) by mouth 2 times daily. 60 capsule 2 12/22/19 25 Active levothyroxine (Synthroid, Levoxyl) 88 MCG tabletIndications :Hypothyroidism, unspecified type TAKE ONE TABLET EVERY MORNING 90 tablet 1 01/14/20 25 Active levothyroxine (Synthroid, Levoxyl) 88 MCG tabletIndications :Hypothyroidism, unspecified type TAKE ONE TABLET EVERY MORNING 90 tablet 1 06/17/19 25 2024 Discontinued Active Problems Problem Noted Date Diagnosed Date Hip pain, bilateral 12/21/2024 Bilateral leg cramps 12/21/2024 Lumbar radiculopathy 12/21/2024 Hoarseness of voice 12/21/2024 Alopecia 04/16/2024 Assessment & Plan (04/16/2024 3:40 [...] Relevant Medication Mometasone (Nasonex) 50 MCG/ACT Nasal [place] Physical exam, annual 07/23/2023 Assessment & Plan [...] recommended reduction of 20-30% of maintenance calories; special agent secret service referral offered. Recommended to decrease soda and [...] Encounters Date Type Department Care Team Description 01/26/2025 Telephone [facility] MEDICINE [address] [place] [address] Chela Lynn MD Med Refill 01/25/2025 Telephone [facility] MED & PEDS [address] [place] [address] Chela Lynn MD 01/25/2025 Telephone [facility] [address] [place] [address] Chela Lynn MD 01/25/2025 Refill [facility] [address] [place] [address] Chela Lynn MD Lumbosacral spondylosis without myelopathy 01/12/2025 Refill [facility] [address] [place] [address] Emma Mckenna MD Hypothyroidism, unspecified type 01/11/2025 Refill [facility] [address] [place] [address] Chela Lynn MD Lumbosacral spondylosis without myelopathy 12/21/2024 3:30 PM EDT Office Visit [facility] [address] [place] [address] Chela Lynn MD Hip pain, bilateral (Primary Dx); Dietary counseling; Exercise counseling; Overweight; Bilateral leg cramps; Lumbar radiculopathy; Hoarseness of voice; Hypothyroidism, unspecified type 12/21/2024 Travel 12/15/2024 Telephone [facility] [address] [place] [address] Chela Lynn MD chart prep 12/15/2024 Telephone [facility] [address] [place] [address] Chela Lynn MD 12/04/2024 Telephone [facility] [address] [place] [address] Chela Lynn MD Nurse Triage 11/03/2024 Refill [facility] [address] [place] [address] Chela Lynn MD Insomnia, unspecified type from Last 3 Months Immunizations [...] Sign Reading Time Taken Comments Blood Pressure 112/64 12/21/2024 3:24 PM EDT Pulse 76 12/21/2024 3:24 PM EDT Temperature 36.6 C (97.9 F) 12/21/2024 3:24 PM EDT Respiratory Rate 18 12/21/2024 3:24 PM EDT Oxygen Saturation 97% 08/26/2024 8:56 AM EDT Inhaled Oxygen Concentration - - Weight 62.7 kg (138 lb 3.2 oz) 12/21/2024 3:24 P M EDT Height 157 cm (5' 1.81 ) 12/21/2024 3:24 PM EDT Body Mass Index 25.43 12/21/2024 3:24 PM EDT Plan of Treatment Health Maintenance Due Date Last Done Comments Zoster Vaccines (2 of 3) 08/12/2013 06/17/2013, 05/30 SDOH Screening 05/28/2024 05/28/2023 Depression Screening 06/06/2024 06/06/2023, 06/06/19 COVID-19 Vaccine ( season) 2024 12/27/2023, 04/17/2023, 03/02/2022, Additional history exists Alcohol/Substance Use Screening 03/20/2025 03/20/2024 Mammogram 06/21/2025 06/21/2023 Tobacco Screening 12/21/2025 12/21/2024 Lipid Panel 06/18/2028 06/18/2023 DTaP/Tdap/Td Vaccines (5 - Td or Tdap) 06/06/2033 06/06/2023, 10/22/2011, 04/29/2011, Additional history exists Pneumococcal Vaccine: 50+ Years Completed 07/22/2015, 01/29/2014 Hepatitis C Screening Completed 06/18/2023 RSV Patients and Patients Aged 60 years or older Completed 01/21/2024 Influenza Vaccine Completed 12/28/2024, , 12/24/2023, Additional history exists HIB Vaccines Aged Out No longer eligi [...] Procedure Name Priority Date/Time Associated Diagnosis Comments BI MAMMOGRAM SCREENING TOMOSYNTHESIS BILATERAL Routine 06/21/2023 9:30 AM EST Breast cancer screening by mammogram HEPATITIS C AB W/REFL TO HCV RNA, QN, PCR Routine 06/18/2023 9:33 AM EST Encounter for health-related screening LIPID PANEL, STANDARD Routine 06/18/2023 9:33 AM EST Class 1 obesity from Last 3 Months or Most Recently Relevant to Health Maintenance Results * BI Mammogram Screening Tomosynthesis Bilateral (06/21/2023 9:30 AM EST) Anatomical Region Laterality Modality Breast Bilateral Mammography 06/21/2023 9:30 AM EST Narrative 07/11/2023 5:57 AM EDT [facility] [address] [place] [address] Mammography Report Signed Patient: Rut Morales MR#: [id number] : 1950 Acct:[id number] Age/Sex: 72 / F ADM Date: 06/21/23 Loc: HO.MAMMO Attending Dr: Chela Lynn MD Ordering Physician: Chela Lynn MD Results: 2Beni gn Findings Date of Service: 06/21/23 Follow Up: 1 Year From Orig inal Mammogram Procedure(s): MM tomosynthesis screening BI Accession Number(s): [id number] cc: Chela Lynn MD EXAMINATION: MM SCREENING [...] in OV> 07/11/23 0554 DD/ 0930 TD/TT: [facility]: Procedure Note Donotuseinterpreter, Image - 07/11/2023 [facility] [address] [place] [address] Mammography Report Signed Patient: Rut Morales GMR#: [id number] : 9Acct:[id number] Age/Sex: 72 / FADM Date: 06/21/23 Loc: MAMMO Attending Dr: Chela Lynn MD Ordering Physician: Chela Lynn MDResults: 2Beni gn Findings Date of Service: 06/21/23Follow Up: 1 Year From Orig inal Mammogram Procedure(s): MM tomosynthesis screening BI Accession Number(s): [id number] cc: Chela Lynn MD EXAMINATION: MM SCREENING [...] in OV> 07/11/23 0554 DD/ 0930 TD/TT: [facility]: Chela Lynn MD IMG BI PROCEDURES Final Resul t * Hepatitis C Antibody with Reflex to HCV, RNA, Quantitative, Real-Time PCR (06/18/2023 9:33 AM EST) Hepatitis C Antibody Nonreactive Nonreactive [facility] Comment:Antibodies to HCV no t detected; does not exclude early acuteHCV infection. Blood Venous blood specimen / Unknown 06/18/2023 9:33 AM EST 06/18/2023 2:41 PM EST Chela Lynn MD LAB BLOOD ORDERABLES Final Re sult [facility] [address] [place] [address] [phone] * Lipid Panel, Standard (06/18/2023 9:33 AM EST) Triglycerides 103 <150 mg/dL [facility] Comment:Desirable Triglyceri de: less than 150 mg/dLBorderline High Triglyceride 150-199 mg/dLHigh Triglyceride: 200-499 mg/dLVery High Triglyceride: greater than or equal to 5OO mg/dL Cholesterol 143 <200 mg/dL [facility] Comment:Desirable Cholestero l: less than 200 mg/dLBorderline High Cholesterol: 200-239 mg/dLHigh Cholesterol: greater than 239 mg/dL LDL Cholesterol Calculated 82 <100 mg/dL [facility] Comment:Desirable LDL: less than 100 mg/dLNear Optimal/Above Optimal LDL: 110- 129 mg/dLBorderline High LDL: 130-159 mg/dLHigh LDL: 160-189 mg/dLVery High LDL: greater than or equal to 190 mg/dL HDL Cholesterol 41 >40 mg/dL [facility] Comment:Desirable HDL: great er than 40 mg/dL Note: This HDL assay may give artificially low results in patients with liver disease. Blood Venous blood specimen / Unknown 06/18/2023 9:33 AM EST 06/18/2023 2:41 PM EST Chlea Lynn MD LAB BLOOD ORDERABLES Final Re sult [facility] [address] [place] [address] [phone] from Last 3 Months or Most Recently Relevant to Health Maintenance Insurance [facility] MEDICARE ADVANTAGE HMO Care Teams Cloth Hauler Relationship Specialty Start Date End Date Chela Lynn MD [address] [place] [address] PCP - General Family Medicine 06/06/23
--- OUTSIDE RECORDS SUMMARY | 2025-01-26 10:00 | XMS_ITS | Encounter Summary ---
Author Organization [employer] Address [address] [facility] 7t [place] [address] Care Team Providers Care Cutting And Boning Supervisor Name Role Phone Chela Lynn MD Primary Care Provider [phone] Reason for Visit * Reason Comments Med Refill Encounter Details Date Type Department Care Team ([facility] Contact Info) Description 01/25/2025 Refill [facility] MED & PEDS [address] [place], [place] [phone] Chela Lynn MD [address] [place] [address] Lumbosacral spondylosis without myelopathy Social History Tobacco [...] documented as of this encounter Care Teams Cutting And Boning Supervisor Relationship Specialty Start Date End Date Chela Lynn MD [address] [place] [address] PCP - General Family Medicine 06/06/23 documented as of this encounter
--- OUTSIDE RECORDS SUMMARY | 2025-01-26 10:00 | XMS_ITS | Encounter Summary ---
Author Organization [employer] Address [address] [facility] 7t [place] [address] Care Team Providers Care Director Software Quality Assurance Name Role Phone Chela Lynn MD Primary Care Provider [phone] Reason for Visit * Reason Comments Med Refill Encounter Details Date Type Department Care Team ([facility] Contact Info) Description 04/24/2024 Refill [facility] MED & PEDS [address] [place], [place] [phone] Chela Lynn MD [address] [place] [address] Social History Tobacco Use Types Packs/Day Years [...] documented as of this encounter Care Teams Director Software Quality Assurance Relationship Specialty Start Date End Date Chela Lynn MD [address] [place] [address] PCP - General Family Medicine 06/06/23 documented as of this encounter
--- OUTSIDE RECORDS SUMMARY | 2025-01-26 10:00 | XMS_ITS | Data Portability ---
Author Organization [facility] Address [address] [facility] [address] [place] [address] Care Team Providers Care Senior Applications Developer Name Role Phone BROOKE LUTZ Referring Provider [facility] Primary Care Provider Assessment Encounter Date Assessment Date Assessment LastModified by Organization Details LastModified Time 04/07/2015 04/07/2015 Valerie Morales is a 64old woman with complaints [...] By Organization Details Last Modified Time 04/07/2015 [address] She was advised against bed rest lasting longer than four days and to continue activities as tolerated. [email or web address] Not available 04/07/2015 15:42:42 Reason for Referral None Reported. Results Created Date Observation Date Name Description Value Unit Range Abnormal Flag Note LastModifiedBy Organization Detail LastModifiedTime 06/16/19 16 MRI, lumba r spine No observ ation record ed. [facility] [address], [place], [address], 07/13/2015 13:43:24 Result Notes None recorded. Problems Name Problem SNOMED Code Status Onset Date Resolution Date Notes Provider Name and Address Organization Details Recorded Time Lumbosacral radiculitis 19337388 Mitesh mishra MD [address] [facility] , [address], [place], [address], [place] [facility] 5 15:55:08 Spinal stenosis of lumbar region 14343986 Active Mariano mishra MD [address] [facility] , [address], [place], [address], [place] [facility] 5 15:55:08 Displacement of lumbar intervertebral disc without myelopathy 92102492 Active Mariano mishra MD [address] [facility] , [address], [place], [address], [place] [facility] 5 15:55:08 Lumbosacral spondylosis without myelopathy 74204304 Mitesh mishra MD [address] [facility] , [address], [place], [address], [place] [facility] [...] Name and Address Organization Details Recorded Time 23753 Product containin g penicilli n (product) medicatio n Not available Not available Not available 04/07/2015 49393 8001 SNOMED Betty [employer] [place], [place] - [...] Address Organization Details Last Updated DateTime 5 59722.7 029 g 96 % 96 % 157.48 cm 31.1 kg/m2 74 /min 111/66 mm[Hg] Betty Pricezier [place] [facility] 5 14:22:21 Social History Question Answer Notes LastModified by Organizat ion Details LastModified Time Tobacco Smoking Status Former Smoker Quit x 30 years Not Available [employer] 02/12/2020 03:16:11 Which Illicit Or Recreational Drugs Have You Used? No [id number] Information not available 02/12/2020 Education 12 Information no t available 04/07/2015 Live Alone Or With Others? With Others [email or web address] Information not available 04/07/2015 Marital Status [email or web address] Informatio n not available 04/07/2015 How Many Years Have You Smoked Tobacco? 15 [id number] Information not available 02/12/2020 Sex: Unknown Functional Status Question Answer Note LastModified by Organization D etails LastModified Time What is your level of alcohol consumption? None [id number] Information not available 02/12/2020 Are you currently employed? No [id number] Information not available 02/12/2020 Mental Status None [...] Diagnosis SNOMED-CT Code Diagnosis ICD10 Code Diagnosis IMO Codes Diagnosis Note 41983 Mariano Pratt MD PAIN OFFICE [address] [place] [address] [place] [id number] 04/07/2015 13:31:37 04/13/2015 15:56:09 Displacement of lumbar intervertebral disc without myelopathy 32743741 M51.26 Lumbosacra l radiculitis 14544335 M54.17 Lumbosacra l spondylosis without myelopathy 11338985 M47.817 Spinal parth nosis of lumbar region 70160153 M48.06 Health Concerns Section Related Observation LastModified by Organization Detai ls LastModified Time None Recorded Concern Status LastModified by Organization Details LastModified Time None Recorded Advance Directives Directive None Recorded Payers Insurance Date Sequence Insurance Name Policy Number Policy Clark Covered Member ID Clark Member ID Guarantor Name 04/13/2015 1 [place]ARE B[place]ubbli [facility] [id number] Valerie [facility] 04/08/2015 2 [place] [id number] Valerie Stefanowich [id number] Valerie [facility] Notes Date Note Type Note Provider Name and Address Organization Details Recorded Time 015 text/ht ml Pain Management L-spineReported by PatientHPIFor quality, patient reportsthrobbing,tightness,numbess ,burning,aching,cramping,sharp, andtingling(she describes the pain in her low back as an aching pain which radiates into both lower extremities with numbness in left foot. the pain in her legs is burning in nature.). For severity, patient reportsworseningandinterference with sleepbut reportscurrent pain level 4/10andworst pain 9/10(she awakens multiple times at night due to pain.). For associated symptoms, patient reportsnumbnessbut reportsno weakness,no bladder compromise, andno bowel compromise. For duration, patient reportsconstant. For onset/timing, patient reportsgradual onsetandchronic. For context, patient reportscannot identify. For alleviating factors, patient reportsrest. For aggravating factors, patient reportsstandingandwalking. For radiation, patient reportsbilateral le(numbness is present in left foot). For work related, patient reportsno. For prior imaging, patient reportsmri(mri lumbar spine done in 2001). For prior emg, patient reportsnone. For previous surgery, patient reportsnone. For previous injections, patient reportsnone. For previous pt, patient reportsdid not help. For previous acute care surgeon, patient reportsdid not help. For location, (valerie morales is a 64 year old woman with complaints of low back pain radiating into both lower extremities. she states she was diagnosed with spinal stenosis about 10 years ago. she has been having increasing pain recently with numbness in her left foot.). Mariano Pratt MD [address] [place] [address] , [address], [place], [address], [place] [facility] 04/14/2015 14:48:37 OBGyn Episode No OBEpisode recorded.
--- OUTSIDE RECORDS SUMMARY | 2025-01-26 10:00 | XMS_ITS | Encounter Summary ---
Author Organization [employer] Address [address] [facility] 7t [place] [address] Care Team Providers Care Accounts Receivable Administrator Name Role Phone Chela Lynn MD Primary Care Provider [phone] Reason for Visit * Reason Onset Date Comments Med Refill 04/01/2024 Encounter Details Date Type Department Care Team ([facility] st Contact Info) Description 04/01/2024 Telephone [facility] MEDICINE [address] [place] [address] Chela Lynn MD [address] [place] [address] Med Refill Social History Tobacco Use Types [...] 04/01/2024 3:54 PM EST Medication sent to [facility] on 02/03/24 #180 with 1 refill. * Telephone Encounter - Lucy Anderson - 04/01/2024 3:52 PM EST TC from pt requesting medication refill. Medications needing refill : Oyster Shell Calcium + D3 500-10 MG-MCG tablet To be sent to: [facility] documented in this encounter Plan of Treatment Not on file documented as of this encounter Visit Diagnoses Not on filedocumented in this encounter Additional Health Concerns Assessment Noted Time PHQ-9 Depression Total Score: 2 06/06/19 10:37 AM EST documented as of this encounter Care Teams Accounts Receivable Administrator Relationship Specialty Start Date End Date Chela Lynn MD [address] [place] [address] PCP - General Family Medicine 06/06/23 documented as of this encounter
--- OUTSIDE RECORDS SUMMARY | 2025-01-26 10:00 | XMS_ITS | Encounter Summary ---
Author Organization [employer] Address [address] [facility] 7t [place] [address] Care Team Providers Care Fence Maker Name Role Phone Chela Lynn MD Primary Care Provider [phone] Encounter Details Date Type Department Care Team ([facility] st Contact Info) Description 08/04/2024 Orders Only [facility] MED & PEDS [address] [place], [place] [phone] Audelia De Luna MD [address] [place] [address] Acquired hypothyroidism (Primary Dx) Social History Tobacco [...] documented as of this encounter Care Teams Fence Maker Relationship Specialty Start Date End Date Chela Lynn MD [address] [place] [address] PCP - General Family Medicine 06/06/23 documented as of this encounter
--- OUTSIDE RECORDS SUMMARY | 2025-01-26 10:00 | XMS_ITS | Encounter Summary ---
Author Organization [employer] Address [address] [facility] 7t [place] [address] Care Team Providers Care Material Combiner Name Role Phone Chela Lynn MD Primary Care Provider [phone] Reason for Visit * Reason Comments Med Change Request Encounter Details Date Type Department Care Team ([facility] Contact Info) Description 09/18/2023 Refill [facility] MED & PEDS [address] [place], [place] [phone] Chela Lynn MD [address] [place] [address] Stuffy and runny nose Social History Tobacco [...] documented as of this encounter Care Teams Material Combiner Relationship Specialty Start Date End Date Chela Lynn MD [address] [place] [address] PCP - General Family Medicine 06/06/23 documented as of this encounter
--- OUTSIDE RECORDS SUMMARY | 2025-01-26 10:00 | XMS_ITS | Encounter Summary ---
Author Organization [employer] Address [address] [facility] 7t [place] [address] Care Team Providers Care Lens Coater Name Role Phone Chela Lynn MD Primary Care Provider [phone] Reason for Visit * Reason Onset Date Comments Results 02/19/2024 Encounter Details Date Type Department Care Team ([facility] Contact Info) Description 02/19/2024 Telephone [facility] MEDICINE [address] [place] [address] Chela Lynn MD [address] [place] [address] Results Social History Tobacco Use Types Packs/Day [...] a follow up. Please contact pt at [phone]. * Telephone Encounter - Nathan Carvajal - 02/19/2024 9:41 AM EDT TC from pt requesting call back regarding Results. Type of results: Labs Date when done: 02/18/24 Facility: [facility] Labs - Type of results: XR Date when done: 02/18/24 Facility: [facility] documented in this encounter Plan of Treatment Not on file documented as of this encounter Visit Diagnoses Not on filedocumented in this encounter Additional Health Concerns Assessment Noted Time PHQ-9 Depression Total Score: 2 06/06/19 10:37 AM EST documented as of this encounter Care Teams Lens Coater Relationship Specialty Start Date End Date Chela Lynn MD [address] [place] [address] PCP - General Family Medicine 06/06/23 documented as of this encounter
--- OUTSIDE RECORDS SUMMARY | 2025-01-26 10:00 | XMS_ITS | Encounter Summary ---
Author Organization [employer] Address 75 [facility] 7t [place] [address] Care Team Providers Care Hardware Manager Name Role Phone Chela Lynn MD Primary Care Provider [phone] Encounter Details Date Type Department Care Team ([facility] st Contact Info) Description 01/25/2025 Telephone [facility] MED & PEDS [address] [place], [place] [phone] Chela Lynn MD [address] [place], [place] [phone] Social History Tobacco Use Types Packs/Day Years [...] encounter Miscellaneous Notes * Telephone Encounter - Parvin Vogel RN - 01/25/2025 3:42 PM EDT documented in this encounter Plan of Treatment Not on file documented as of this encounter Visit Diagnoses Not on filedocumented in this encounter Additional Health Concerns Assessment Noted Time PHQ-9 Depression Total Score: 2 06/06/19 24 10:37 AM EST documented as of this encounter Care Teams Hardware Manager Relationship Specialty Start Date End Date Chela Lynn MD [address] [place] [address] PCP - General Family Medicine 06/06/23 documented as of this encounter
--- OUTSIDE RECORDS SUMMARY | 2025-01-26 10:00 | XMS_ITS | Encounter Summary ---
Author Organization [employer] Address [address] [facility] 7t [place] [address] Care Team Providers Care Rice Milling Supervisor Name Role Phone Chela Lynn MD Primary Care Provider [phone] Reason for Visit * Reason Onset Date Comments Nurse Triage 07/20/2024 Encounter Details Date Type Department Care Team ([facility] st Contact Info) Description 07/20/2024 Telephone [facility] MEDICINE [address] [place] [address] Chela Lynn MD [address] [place] [address] Nurse Triage Social History Tobacco Use Types [...] caller accepted this outcome. Contact pt at [phone] documented in this encounter Plan of Treatment Not on file documented as of this encounter Visit Diagnoses Not on filedocumented in this encounter Additional Health Concerns Assessment Noted Time PHQ-9 Depression Total Score: 2 06/06/19 10:37 AM EST documented as of this encounter Care Teams Rice Milling Supervisor Relationship Specialty Start Date End Date Chela Lynn MD [address] [place] [address] PCP - General Family Medicine 06/06/23 documented as of this encounter
--- OUTSIDE RECORDS SUMMARY | 2025-01-26 10:01 | XMS_ITS | Patient Health Record ---
Author Organization [facility] Address [address] [place] [address] Care Team Providers Care Backend Python Developer Name Role Phone Deana LEWIS, Ricardo Primary Care Provider Unavail able Ignacio Monae Unavailable [phone] Allergies Allergen (clinical drug ingredient) Drug/Non Drug [...] Status Risk Notes Problem Blood in stool (112335522) Blood in stool (578.1) Active confirmed Problem Diarrhea (38081502) Diarrhea (787.91) Active confirmed Problem Feces contents abnormal (681336280) Nonspecific abnormal finding in stool contents (792.1) Active confirmed Problem Abnormal findings diagnostic imaging of liver and biliary tract (686678305) Nonspecific abnormal findings on radiological and other [...] Start Date Coverage End Date MEDICARE OF [facility] [address] [place] [address] [id number] HAWK HERNANDEZ Self - patient is the insured [id number] [address] [place] [address] [id number] HAWK HERNANDEZ Self - patient is the insured Medical (General) History Medical History History ICD Code colonoscopy 06-04-2005-screening-negative for polyps Diverticulosis Hypothyroidism Leg cramps Migraines Back pain Denies ME,DM,CVA,Lung disease,renal dise ase Surgical History Surgery Date(Month/Year) [facility] Thyroidectomy 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
--- OUTSIDE RECORDS SUMMARY | 2025-01-26 10:01 | XMS_ITS | Encounter Summary ---
Author Organization [employer] Address 75 [facility] 7t [place] [address] Care Team Providers Care Manager Appointment Name Role Phone Chela Lynn MD Primary Care Provider [phone] Reason for Visit * Reason Onset Date Comments Med Refill 01/26/2025 Encounter Details Date Type Department Care Team ([facility] st Contact Info) Description 01/26/2025 Telephone [facility] MEDICINE [address] [place] [address] Chela Lynn MD [address] [place] [address] Med Refill Social History Tobacco Use Types [...] encounter Miscellaneous Notes * Telephone Encounter - Chela Lynn MD - 01/26/2025 8:47 AM EDT I spoke with patient and clarified tranistion, cont lyrica * Telephone Encounter - Chela Lynn MD - 01/26/2025 8:44 AM EDT Patient was transitioned from gabapentin to lyrica, if she does not find lyrica helpful we can transition back to gabapenting. * Telephone Encounter - Taras Key - 01/26/2025 8:34 AM EDT Patient in requesting med refill for Gabapentin 600 mg . Patient has been out for a week. documented in this encounter Plan of Treatment Not on file documented as of this encounter Visit Diagnoses Not on filedocumented in this encounter Additional Health Concerns Assessment Noted Time PHQ-9 Depression Total Score: 2 06/06/19 24 10:37 AM EST documented as of this encounter Care Teams Manager Appointment Relationship Specialty Start Date End Date Chela Lynn MD [address] [place] [address] PCP - General Family Medicine 06/06/23 documented as of this encounter
--- OUTSIDE RECORDS SUMMARY | 2025-01-26 10:01 | XMS_ITS | Encounter Summary ---
Author Organization [employer] Address [address] [place] [address] 7 [place] [address] Care Team Providers Care Graduate Rn Name Role Phone Chela Lynn MD Primary Care Provider [phone] Reason for Referral * Imaging (Routine) - Closed Specialty Diagnoses / Procedures Referred By Contac t Referred To Contact Radiology Diagnoses Episodic cluster headache, not intractable Procedures CT Head w/o Contrast Audelia De Luna MD [address] [place] [address] Phone: tel: fax: [address] Phone: tel: fax: Referral ID Status Reason Start Date Expiration Date Visits Re quested Visits Authorized [id number] Closed 08/27/2023 08/26/2024 1 1 Encounter Details Date Type Department Care Team (Late st Contact Info) Description 08/27/2023 Orders Only [facility] CHC MED & PEDS [address] [place] [address] Audelia De Luna MD [address] [place], [place] [phone] Episodic cluster headache, not intractable (Primary Dx) [...] Protein (02/06/2024 11:56 AM EDT) Pathologist [facility] C Reactive Protein 1.96(H) < or = 0.50 mg/dL [facility] 02/06/2024 11:5 6 AM EDT 02/06/2024 12:02 PM EDT Generic External Data Provider LAB BLOOD ORDERAB LES Final Result Performing Organization Address [facility]/ZIP Co de Phone Number [facility] [address] [place] [phone] * Creatine Kinase, Total (02/06/2024 11:56 AM EDT) [facility] Creatine Kinase Total 79 26 - 140 U/L [facility] 02/06/2024 11:5 6 AM EDT 02/06/2024 12:02 PM EDT Generic External Data Provider LAB BLOOD ORDERAB LES Final Result Performing Organization Address [facility] Co de Phone Number [facility] [address] [place] [phone] * Prothrombin Time-INR (02/06/2024 11:56 AM EDT) Pathologist [facility] Prothrombin Time 12.4 10.9 - 12.4 SEC [facility] INTERNATIONAL NORM RATIO 1.1 0.9 - 1.1 [facility] Comment:INTERNATIONAL NORMAL IZED RATIO (INR) [...] Provider LAB BLOOD ORDERAB LES Final Result [facility] [address] [place] [address] [phone] * (ABNORMAL) Comprehensive Metabolic Panel (02/06/2024 11:56 AM EDT) Sodium 136 135 - 145 mmol/L [facility] Potassium 4.1 3.3 - 5.1 mmol/L [facility] Chloride 101 96 - 108 mmol/L [facility] Carbon Dioxide 30(H) 22 - 29 mmol/L [facility] Anion Gap 9(L) 12 - 20 [facility] Urea Nitrogen (BUN) 17(H) 9 - 16 mg/dL [facility] Creatinine, Serum 0.69 0.5 - 1.4 mg/dL [facility] Creatinine Clr Calc Pharmacy 60.9 [facility] Comment:Provided height and weight: 157.48 cm,61.689 kg.eGFR (calculated from the MDRD study equation) and eCrCl(calculated from the Cockcroft-Gault equation) are based ondifferent parameters and may not yield comparable results.If eCrCl result is absurd, please check patient'sheight/weight. Estimated Glomerular Filt Rate >60 [facility] Comment:NOTE: For -Am erican individuals, multiply the result by 1.210.Chronic Kidney Disease: Estimated GFR < 60 mL/min/1.73l4Fisufs Kidney Disease: Estimated GFR < 15 mL/min/1.73m2 Glucose 92 60 - 115 mg/dL [facility] Calcium 9.7 8.4 - 10.2 mg/dL [facility] Bilirubin, Total 1.1(H) 0.0 - 1.0 mg/dL [facility] Aspartate Amino Transferase 20 5 - 31 U/L [facility] Alanine Aminotransferase 11 0 - 31 U/L [facility] Total Protein 5.9(L) 6.5 - 8.0 g/dL [facility] Albumin Level 3.7 3.5 - 5.0 g/dL [facility] Alkaline Phosphatase 65 39 - 117 U/L [facility] 02/06/2024 11:5 6 AM EDT 02/06/2024 12:02 PM EDT us Generic External Data Provider LAB BLOOD ORDERAB LES Final Result [facility] [address] [place] [phone] * (ABNORMAL) CBC auto differential (02/06/2024 11:56 AM EDT) White Blood Count 9.6 4.8 - 10.8 X10*3/uL [facility] Red Blood Count 4.64 4.20 - 5.50 X10*6/uL [facility] Hemoglobin 14.2 12.0 - 16.0 g/dl [facility] Hematocrit 43.0 37.0 - 47.0 % [facility] Mean Corpuscular Volume 92.7 80.0 - 98.0 fL [facility] Mean Corpuscular Hemoglobin 30.6 27.0 - 33.0 pg [facility] Mean Corpuscular HGB Conc 33.0 31.0 - 35.0 g/dl [facility] Red Cell Distribution Width 14.4 11.0 - 16.0 % [facility] Platelet Count 317 160 - 400 X10*3/uL [facility] Mean Platelet Volume 9.6 9.4 - 12.3 fL [facility] Neutrophils Percent Auto 66.2 45 - 73 % [facility] Imm Gran Pct Auto 0.4 0.0 - 0.4 % [facility] Lymphocytes Percent Auto 21.5 20 - 40 % [facility] Monocytes Percent Auto 10.7 2 - 11 % [facility] Eosinophils Percent Auto 0.8 0 - 4 % [facility] Basophils Percent Auto 0.4 0 - 2 % [facility] NRBC Pct Auto 0.0 0.0 - 0.2 /100WBC [facility] Neutrophils Absolute Auto 6.4 2.0 - 8.3 x10*3/uL [facility] Imm Gran Abs Auto 0.04(H) 0.00 - 0.03 X10*3/uL [facility] Lymphocytes Absolute Auto 2.1 1.2 - 4.9 X10*3/uL [facility] Monocytes Absolute Auto 1.0 0.1 - 1.2 X10*3/uL [facility] Eosinophils Absolute Auto 0.1 0.0 - 0.4 X10*3/uL [facility] Basophils Absolute Auto 0.0 0.0 - 0.2 X10*3/uL [facility] NRBC Abs Auto 0.000 0.0 - 0.012 X10*3/uL [facility] 02/06/2024 11:5 6 AM EDT 02/06/2024 12:02 PM EDT us Generic External Data Provider LAB BLOOD ORDERAB LES Final Result [facility] [address] [place] [phone] * CT Head w/o Contrast (10/08/2023 8:00 AM EDT) Anatomical Region Laterality Modality Head, Neck Computed Tomogra phy 10/08/2023 8:00 AM EDT Narrative 10/23/2023 5:32 PM EDT [address] [address] [address] Scan Report Signed Patient: AndrzejagnesRut curtis MR#: [id number] : 1950 Acct:[id number] Age/Sex: 73 / F ADM Date: 10/08/23 Loc: HO.CT Attending Dr: Audelia De Luna MD Ordering Physician: Audelia De Luna MD Date of Service: 10/08/23 Procedure(s): CT head/brain wo IV con Accession Number(s): [id number] cc: Audelia De Luna MD; Chela Lynn [...] in OV> 10/23/23 1728 DD/ 0800 TD/TT: Plant Wire Chief: OLEKSANDR Procedure Note Donotuseinterpreter, Image - 10/23/[address] [address] [address] Scan Report Signed Patient: Rut Morales GMR#: [id number] : 1950cct:[id number] Age/Sex: 73 / FADM Date: 10/08/23 Loc: HO.CT Attending Dr: Audelia De Luna MD Ordering Physician: Audelia De Luna MD Date of Service: 10/08/23 Procedure(s): CT head/brain wo IV con Accession Number(s): [id number] cc: Audelia De Luna MD; Chela Lynn [...] in OV> 10/23/23 1728 DD/ 0800 TD/TT: Plant Wire Chief: OLEKSANDR us Audelia De Luna MD IMG CT PROCEDURES Final Res ult documented in this encounter Visit Diagnoses Diagnosis Episodic cluster headache, not intractable- Primary documented in this encounter Additional Health Concerns Assessment Noted Time PHQ-9 Depression Total Score: 2 06/06/19 24 10:37 AM EST documented as of this encounter Care Teams Graduate Rn Relationship Specialty Start Date End Date Chela Lynn MD [address] [place] [address] PCP - General Family Medicine 06/06/23 documented as of this encounter
--- OUTSIDE RECORDS SUMMARY | 2025-01-26 10:01 | XMS_ITS | Encounter Summary ---
Author Organization [employer] Address [address] [facility] 7t [place] [address] Care Team Providers Care Derrick Follower Name Role Phone Chela Lynn MD Primary Care Provider [phone] Reason for Visit * Reason Onset Date Comments Medication Question 08/23/2023 Encounter Details Date Type Department Care Team ([facility] Contact Info) Description 08/23/2023 Telephone [facility] MEDICINE [address] [place] [address] Chela Lynn MD [address] [place] [address] Medication Question Social History Tobacco Use Types [...] with the injection. Please contact pt at [phone]. documented in this encounter Plan of Treatment Not on file documented as of this encounter Visit Diagnoses Not on filedocumented in this encounter Additional Health Concerns Assessment Noted Time PHQ-9 Depression Total Score: 2 06/06/19 24 10:37 AM EST documented as of this encounter Care Teams Derrick Follower Relationship Specialty Start Date End Date Chela Lynn MD [address] [place] [address] PCP - General Family Medicine 06/06/23 documented as of this encounter
--- OUTSIDE RECORDS SUMMARY | 2025-01-26 10:01 | XMS_ITS | Encounter Summary ---
Author Organization [employer] Address 75 [facility] 7t [place] [address] Care Team Providers Care Emt Name Role Phone Chela Lynn MD Primary Care Provider [phone] Reason for Visit * Reason Comments Med Refill Encounter Details Date Type Department Care Team ([facility] Contact Info) Description 01/11/2025 Refill [facility] CHC MED & PEDS [address] [place], [place] [phone] Chela Lynn MD [address] [place] [address] Lumbosacral spondylosis without myelopathy Social History Tobacco [...] documented as of this encounter Care Teams Emt Relationship Specialty Start Date End Date Chela Lynn MD [address] [place] [address] PCP - General Family Medicine 06/06/23 documented as of this encounter
--- OUTSIDE RECORDS SUMMARY | 2025-01-26 10:01 | XMS_ITS | Encounter Summary ---
Author Organization [employer] Address 75 [facility] 7t [place] [address] Care Team Providers Care Call Or Contact Centre Operator Name Role Phone Chela Lynn MD Primary Care Provider [phone] Reason for Visit * Reason Onset Date Comments Med Refill 07/27/2023 Encounter Details Date Type Department Care Team ([facility] st Contact Info) Description 07/27/2023 Refill [facility] CHC MED & PEDS [address] [place], [place] [phone] Chela Lynn MD [address] [place] [address] Lumbosacral spondylosis without myelopathy Social History Tobacco [...] documented as of this encounter Care Teams Call Or Contact Centre Operator Relationship Specialty Start Date End Date Chela Lynn MD [address] [place] [address] PCP - General Family Medicine 06/06/23 documented as of this encounter
--- OUTSIDE RECORDS SUMMARY | 2025-01-26 10:01 | XMS_ITS | Clinical Summary ---
Author Organization [facility] Address [address] [place] [phone] Phone Care Team Providers Care Microbiology Analyst Name Role Phone Annette Castillo NP [...] [place]IC[place] [address] [place] [address] [address] [address] [place] [address] [address] [address] [place] [address] [address] [place] [address] [place] [address] [address] [place] [place] [address] [place] [address] [address] [place] [address] [place] [address] MEDICARE HMO BLUE REPLACEMENT [place] MEDIC[place] H[place] BLUE REPLACEMENT Care Teams Microbiology Analyst Relationship Specialty Start Date End Date Annette Castillo NP [address] [place] [address] PCP - General Family Medicine 12/28/21 Additional Source Comments The information contained in this document represents components of the legal health record. It is not the complete legal health record.[facility]
--- OUTSIDE RECORDS SUMMARY | 2025-01-26 10:01 | XMS_ITS | Encounter Summary ---
Author Organization [employer] Address 75 [facility] 7t [place] [address] Care Team Providers Care Pattern Hand Name Role Phone Chela Lynn MD Primary Care Provider [phone] Encounter Details Date Type Department Care Team ([facility] st Contact Info) Description 01/25/[address] [facility] CHC MED & PEDS [address] [place], [place] [phone] Chela Lynn MD [address] [place], [place] [phone] Social History Tobacco Use Types Packs/Day Years [...] Encounter - Chela Lynn MD - 01/26/2025 8:51 AM EDT Spoke with patient she had transitioned to Lyrica, I spoke with her will cont lyrica * Telephone Encounter - Betty Kaur RN - 01/25/2025 3:49 PM EDT Walk-in to pharmacy. She is requesting refills for Gabapentin 600 mg. Will route to provider. Unable to que medication. documented in this encounter Plan of Treatment Not on file documented as of this encounter Visit Diagnoses Not on filedocumented in this encounter Additional Health Concerns Assessment Noted Time PHQ-9 Depression Total Score: 2 06/06/19 10:37 AM EST documented as of this encounter Care Teams Pattern Hand Relationship Specialty Start Date End Date Chela Lynn MD [address] [place] [address] PCP - General Family Medicine 06/06/23 documented as of this encounter
[2025-01-26 16:06] LABS: Free T4 (Free Thyroxine) 0.86 ng/dL (0.71-1.85)
== END 2025-01-26 09:15 | disposition home or self-care (01) ==
LOC: HO.CHCLDS 09:14
PROVIDERS: Visit Provider Family Medicine
DX: E03.9 Hypothyroidism, unspecified (principal)
CPT/HCPCS: 36415; 84439; 84443

== ENCOUNTER 2025-03-09 09:15 | Day surgery (SDC) | payer MEDICARE, SELFPAY ==
--- OUTSIDE RECORDS SUMMARY | 2025-03-02 17:13 | XMS_ITS | Encounter Summary ---
Author Organization [employer] Address 75 [facility] 7t [place] [address] Care Team Providers Care Food And Nutrition Services Supervisor Name Role Phone Chela Lynn MD Primary Care Provider [phone] Encounter Details Date Type Department Care Team ([facility] st Contact Info) Description 08/04/2024 Orders Only [facility] CHC MED & PEDS [address] [place], [place] [phone] Audelia De Luna MD [address] [place] [address] Acquired hypothyroidism (Primary Dx) Social History Tobacco [...] as of this encounter Plan of Treatment Upcoming Encounters Date Type Department Care Team (Late st Contact Info) Description 03/29/2025 1:00 PM EST Office Visit [facility] MED & PEDS [address] [place] [address] Chela Lynn MD [address] [place] [address] documented as of this encounter Visit Diagnoses Diagnosis Acquired hypothyroidism- Primary Unspecified hypothyroidism documented in this encounter Additional Health Concerns Assessment Noted Time PHQ-9 Depression Total Score: 2 06/06/19 24 10:37 AM EST documented as of this encounter Care Teams Food And Nutrition Services Supervisor Relationship Specialty Start Date End Date Chela Lynn MD [address] [place] [address] PCP - General Family Medicine 06/06/23 documented as of this encounter
--- OUTSIDE RECORDS SUMMARY | 2025-03-02 17:13 | XMS_ITS | Encounter Summary ---
Author Organization [employer] Address 75 [facility] 7t [place] [address] Care Team Providers Care Acupressure Therapist Name Role Phone Chela Lynn MD Primary Care Provider [phone] Reason for Visit * Reason Onset Date Comments Nurse Triage 07/20/2024 Encounter Details Date Type Department Care Team ([facility] st Contact Info) Description 07/20/2024 Telephone [facility] MEDICINE [address] [place] [address] Chela Lynn MD [address] [place] [address] Nurse Triage Social History Tobacco Use Types [...] caller accepted this outcome. Contact pt at [phone] documented in this encounter Plan of Treatment Upcoming Encounters Date Type Department Care Team (Late st Contact Info) Description 03/29/2025 1:00 PM EST Office Visit [facility] CHC MED & PEDS [address] [place] [address] Chela Lynn MD [address] [place] [address] documented as of this encounter Visit Diagnoses Not on filedocumented in this encounter Additional Health Concerns Assessment Noted Time PHQ-9 Depression Total Score: 2 06/06/19 10:37 AM EST documented as of this encounter Care Teams Acupressure Therapist Relationship Specialty Start Date End Date Chela Lynn MD [address] [place] [address] PCP - General Family Medicine 06/06/23 documented as of this encounter
--- OUTSIDE RECORDS SUMMARY | 2025-03-02 17:13 | XMS_ITS | Encounter Summary ---
Author Organization [employer] Address 75 [facility] 7t [place] [address] Care Team Providers Care Certified Ethical Hacker Name Role Phone Chela Lynn MD Primary Care Provider [phone] Reason for Visit * Reason Comments Med Refill Encounter Details Date Type Department Care Team ([facility] Contact Info) Description 01/25/2025 Refill [facility] CHC MED & PEDS [address] [place], [place] [phone] Chela Lynn MD [address] [place] [address] Lumbosacral spondylosis without myelopathy Social History Tobacco [...] Description 03/29/2025 1:00 PM EST Office Visit [facility] CHC MED & PEDS [address] [place] [address] Chela Lynn MD [address] [place] [address] documented as of this encounter Visit Diagnoses Diagnosis Lumbosacral spondylosis without myelopathy documented in this encounter Additional Health Concerns Assessment Noted Time PHQ-9 Depression Total Score: 2 06/06/19 24 10:37 AM EST documented as of this encounter Care Teams Certified Ethical Hacker Relationship Specialty Start Date End Date Chela Lynn MD [address] [place] [address] PCP - General Family Medicine 06/06/23 documented as of this encounter
--- OUTSIDE RECORDS SUMMARY | 2025-03-02 17:13 | XMS_ITS | Encounter Summary ---
Author Organization [employer] Address 75 [facility] 7t [place] [address] Care Team Providers Care Cycle Touring Guide Name Role Phone Chela Lynn MD Primary Care Provider [phone] Reason for Visit * Reason Onset Date Comments Med Refill 07/27/2023 Encounter Details Date Type Department Care Team ([facility] st Contact Info) Description 07/27/[address] [facility] CHC MED & PEDS [address] [place], [place] [phone] Chela Lynn MD [address] [place] [address] Lumbosacral spondylosis without myelopathy Social History Tobacco [...] Description 03/29/2025 1:00 PM EST Office Visit [facility] MED & PEDS [address] [place] [address] Chela Lynn MD [address] [place] [address] documented as of this encounter Visit Diagnoses Diagnosis Lumbosacral spondylosis without myelopathy documented in this encounter Additional Health Concerns Assessment Noted Time PHQ-9 Depression Total Score: 2 06/06/19 24 10:37 AM EST documented as of this encounter Care Teams Cycle Touring Guide Relationship Specialty Start Date End Date Chela Lynn MD [address] [place] [address] PCP - General Family Medicine 06/06/23 documented as of this encounter
--- OUTSIDE RECORDS SUMMARY | 2025-03-02 17:13 | XMS_ITS | Data Portability ---
Author Organization [facility] Address [address] [facility] [address] [place] [address] Care Team Providers Care Gas Turbine Powerplant Mechanic Name Role Phone BROOKE LUTZ Referring Provider [phone] [facility] Primary Care Provider [phone] Assessment Encounter Date Assessment Date Assessment LastModified [...] By Organization Details Last Modified Time 04/07/2015 35838 She was advised against bed rest lasting longer than four days and to continue activities as tolerated. [email or web address] Not available 04/07/2015 15:42:42 Reason for Referral None Reported. Results Created Date Observation Date Name Description Value Unit Range Abnormal Flag Note LastModifiedBy Organization Detail LastModifiedTime 06/16/19 16 MRI, lumba r spine No observ ation record ed. [facility] [address], [place], [address], 07/13/2015 13:43:24 Result Notes None recorded. Problems Name Problem SNOMED Code Status Onset Date Resolution Date Notes Provider Name and Address Organization Details Recorded Time Lumbosacral radiculitis 78836827 Mitesh mishra MD [address] [facility] , [address], [place], [address], [place] [facility] 5 15:55:08 Spinal stenosis of lumbar region 08430589 Active Mariano mishra MD [address] [facility] , [address], [place], [address], [place] [facility] 5 15:55:08 Displacement of lumbar intervertebral disc without myelopathy 68815613 Active Mariano mishra MD [address] [facility] , [address], [place], [address], [place] [facility] 5 15:55:08 Lumbosacral spondylosis without myelopathy 51560740 Mitesh mishra MD [address] [facility] , [address], [place], [address], [place] [facility] [...] Name and Address Organization Details Recorded Time 66224 Product containin g penicilli n (product) medicatio n Not available Not available Not available 04/07/2015 78420 8001 SNOMED Betty Pricemark bar[place], [place] - [...] Address Organization Details Last Updated DateTime 5 29908.7 029 g 96 % 96 % 157.48 cm 31.1 kg/m2 74 /min 111/66 mm[Hg] Betty Pricezier [place] [facility] 5 14:22:21 Social History Question Answer Notes LastModified by Organizat ion Details LastModified Time Tobacco Smoking Status Former Smoker Quit x 30 years Not Available [employer] 02/12/2020 03:16:11 Which Illicit Or Recreational Drugs Have You Used? No [id number] Information not available 02/12/2020 Education 12 Information no t available 04/07/2015 Live Alone Or With Others? With Others [email or web address] Information not available 04/07/2015 Marital Status [email or web address] Informatio n not available 04/07/2015 How Many Years Have You Smoked Tobacco? 15 [id number] Information not available 02/12/2020 Sex: Unknown Functional Status Question Answer Note LastModified by Organization D etails LastModified Time What is your level of alcohol consumption? None [id number] Information not available 02/12/2020 Are you currently employed? No [id number] Information not available 02/12/2020 Mental Status None [...] ICD10 Code Diagnosis IMO Codes Diagnosis Note [id number] Mariano Pratt MD PAIN OFFICE [address] [place] [address] [place] [address] 04/07/2015 13:31:37 04/13/2015 15:56:09 Displacement of lumbar intervertebral disc without myelopathy 61932634 M51.26 Lumbosacra l radiculitis 37526554 M54.17 Lumbosacra l spondylosis without myelopathy 13789618 M47.817 Spinal parth nosis of lumbar region 19777799 M48.06 Health Concerns Section Related Observation LastModified by Organization Detai ls LastModified Time None Recorded Concern Status LastModified by Organization Details LastModified Time None Recorded Advance Directives Directive None Recorded Payers Insurance Date Sequence Insurance Name Policy Number Policy Clark Covered Member ID Clark Member ID Guarantor Name 04/13/2015 1 [place] [employer] Valerie [facility] [id number] [facility] 04/08/2015 2 [place] [facility] Valerie Stefanowich [id number] [facility] Notes Date Note Type Note Provider [...] pt, patient reportsdid not help. For previous health care specialist, patient reportsdid not help. For location, (valerie morales is a 64 year old woman with complaints of low back pain radiating into both lower extremities. she states she was diagnosed with spinal stenosis about 10 years ago. she has been having increasing pain recently with numbness in her left foot.). Mariano Pratt MD [address] [place] [address] , [address], [place], [address], [place] [facility] 04/14/2015 14:48:37 OBGyn Episode No OBEpisode recorded.
--- OUTSIDE RECORDS SUMMARY | 2025-03-02 17:13 | XMS_ITS | Encounter Summary ---
Author Organization [employer] Address [address] [facility] 7t [place] [address] Care Team Providers Care Audio Video Tech Name Role Phone Chela Lynn MD Primary Care Provider [phone] Reason for Visit * Reason Comments Med Refill Encounter Details Date Type Department Care Team ([facility] Contact Info) Description 01/11/2025 Refill [facility] MED & PEDS [address] [place], [place] [phone] Chela Lynn MD [address] [place] [address] Lumbosacral spondylosis without myelopathy Social History Tobacco [...] Description 03/29/2025 1:00 PM EST Office Visit [facility] & PEDS [address] [place] [address] Chela Lynn MD [address] [place] [address] documented as of this encounter Visit Diagnoses Diagnosis Lumbosacral spondylosis without myelopathy documented in this encounter Additional Health Concerns Assessment Noted Time PHQ-9 Depression Total Score: 2 06/06/19 24 10:37 AM EST documented as of this encounter Care Teams Audio Video Tech Relationship Specialty Start Date End Date Chela Lynn MD [address] [place] [address] PCP - General Family Medicine 06/06/23 documented as of this encounter
--- OUTSIDE RECORDS SUMMARY | 2025-03-02 17:13 | XMS_ITS | Data Portability ---
Author Organization [place] [facility], Allergy Address [address] [address] Care Team Providers Care Registered Nurse Ambulatory Name Role Phone [email or web address] [facility] Primary Care Provider Assessment No assessment recorded. Plan of Treatment Reminders Order Date Submit Date Provider Last Modified By Organization Details Last Modified Time Details Appointments None recorded. Lab None recorded. Referral None recorded. Procedures None recorded. Surgeries None recorded. Imaging None recorded. Medication Orders ipratropium bromide 21 mcg (0.03 %) nasal spray 2023 024 [facility][id number], [address] [facility], [place], [address], 09:11:23 Patient TargetsNo targets recorded. Patient InstructionsNo instructions recorded. Reason for Referral None Reported. Problems Name Problem SNOMED Code Status Onset Date Resolution Date Notes Provider Name and Address Organization Details Recorded Time Vasomotor rhinitis 5125248 Active 2021 Vasomotor rhinitis; Note: Date Diagnosed: 07/06/2021 8:58 AM (J30.0) Not Available [facility] 4 02:56:49 Hypertrop hy of nasal turbinate s 43213450 Active 2022 Hypertroph y of nasal turbinates ; Note: Date Diagnosed: 03/15/2023 5:09 PM (J34.3) Not Available [facility] 4 02:56:46 Allergic rhinitis 69728227 Active 2022 Other allergic rhinitis; Note: Date Diagnosed: 03/15/2023 5:09 PM (J30.89) Not Available [facility] 4 02:56:48 Nasal congestio n 14470483 Active 2023 TREASURE ROMAN MD [address] [facility],[place] [address], [place], [address] , [facility] - [facility] 4 09:05:55 Anterior rhinorrhe a 830953941 Active 2023 TREASURE ROMAN MD [address] [facility],[place] [address], [place], [address] , [facility] - [facility] 4 09:06:59 Problem Notes None recorded. Procedures Surgical History Date Name Laterality Status Provider Name and Address Organization Details Recorded Time 11/11/2023 NasalEndos copy_DP completed TREASURE ROMAN MD [address] [facility],[place] [address], [place], [address], [facility] - [facility] 11/11/2023 09:14:27 Imaging Results None recorded. Procedure Notes None recorded. Medical Equipment None Reported. Allergies Allergen ID Allergen Name Allergen Category Reaction Reaction Severity Criticality Documentation Date Start Date Code Code System Note Provider Name and Address Organization Details Recorded Time 913822 Product containin g penicilli n (product) medicatio n other Not available Not available 09/10/2023 33827 8001 SNOMED React ion: other react ion, Unkno wn; Not Available [facility] 4 01:12:17 789828 morphine medicatio n other Not available Not available 09/10/2023 7052 RxNorm React ion: other react ion, Unkno wn; Not Available [facility] 4 01:12:18 Medications Name Sig Start Date Stop Date Status Note LastModified by Organization Details LastModified Time pramipexol e 1 mg tablet 2021 active Medicatio n ID: [id number] Br and Name: pramipexo le Send Method: [...] 2 SPRAY THREE TIMES A DAY DIRECTED 2024 active Not Available Not Available Not Avai lable Oyster Shell Calcium-Vi tamin D3 500 mg-10 [...] Updated DateTime 11/11/2023 157.48 cm 28.3 kg/m2 43457.82 g Nathaniel Carlson [place] - [facility] 11/11/2023 08:51:32 Social History None recorded. Functional Status None recorded. Mental Status None recorded. Family History Nothing Reported. Medical History No medical history recorded. Gynecological HistoryNo gynecological history recorded. Obstetrics History GPAL:G 0 P 0 0 0 0 Past Encounters Encounter ID Performer Location Encounter Start Date Encounter Closed Date Diagnosis/Indication Diagnosis SNOMED-CT Code Diagnosis ICD10 Code Diagnosis IMO Codes Diagnosis Note [id number] TREASURE ROMAN MD [facility] [address] [address] 11/11/2023 08:43:17 11/11/2023 09:24:33 Nasal congestion 54686254 R09.81 Nasal endo negative for polyps and purulence. She may have vasomotor rhinitis. I would consider azelastine if not improved. Anterior rhinorrhea 2772 05424 J34.89 Likely vasomotor rhinitos. No hx of trauma or surgery. Vasomotor rhinitis 78254 03 J30.0 Her symptoms are most consistnet [...] Member ID Clark Member ID Guarantor Name 12/30/2024 1 [facility]: MEDICARE HMO BLUE (MEDICARE REPLACEMENT HMO) [id number] Rut Morales [id number] 90 Rut Morales 12/30/2024 1 [employer] Rut Morales [id number] Rut Morales 12/30/2024 1 [employer] (MEDICARE SUPPLEMENT) Rut Morales [id number] Rut Morales Notes Date Note Type Note Provider Name and Address Organization Details Recorded Time 11/11/2023 text/html ROS as noted in the HPI She reports nasal drip. She reports nasal drip that comes out her nose. After a meal she sneezes often and blows her nose. It does not change with the seasons. She tried a nasal spray without benefit. No hx of head trauma. No hx of sinus surgery. No recent hx of abx for sinusitis. TREASURE ROMAN MD [address] [place] [address], [place], [address], [facility] - [facility] 11/11/2023 09:14:43 OBGyn Episode No OBEpisode recorded.
--- OUTSIDE RECORDS SUMMARY | 2025-03-02 17:13 | XMS_ITS | Encounter Summary ---
Author Organization [employer] Address [address] [facility] 7t [place] [address] Care Team Providers Care Personal Investment Adviser Name Role Phone Chela Lynn MD Primary Care Provider [phone] Reason for Visit * Reason Onset Date Comments Medication Question 08/23/2023 Encounter Details Date Type Department Care Team ([facility] Contact Info) Description 08/23/2023 Telephone [facility] MEDICINE [address] [place] [address] Chela Lynn MD [address] [place] [address] Medication Question Social History Tobacco Use Types [...] regards below. * Telephone Encounter - Nathan Carvaajl - 08/23/2023 12:32 PM EDT Tc from [...] with the injection. Please contact pt at [phone]. documented in this encounter Plan of Treatment Upcoming Encounters Date Type Department Care Team ([facility] st Contact Info) Description 03/29/2025 1:00 PM EST Office Visit [facility] & PEDS [address] [place] [address] Chela Lynn MD [address] [place] [address] documented as of this encounter Visit Diagnoses Not on filedocumented in this encounter Additional Health Concerns Assessment Noted Time PHQ-9 Depression Total Score: 2 06/06/19 10:37 AM EST documented as of this encounter Care Teams Personal Investment Adviser Relationship Specialty Start Date End Date Chela Lynn MD [address] [place] [address] PCP - General Family Medicine 06/06/23 documented as of this encounter
--- OUTSIDE RECORDS SUMMARY | 2025-03-02 17:13 | XMS_ITS | Encounter Summary ---
Author Organization [employer] Address [address] [facility] 7t [place] [address] Care Team Providers Care Geographic Analyst Name Role Phone Chela Lynn MD Primary Care Provider [phone] Reason for Visit * Reason Comments Med Refill Encounter Details Date Type Department Care Team ([facility] Contact Info) Description 04/24/2024 Refill [facility] CHC MED & PEDS [address] [place], [place] [phone] Chela Lynn MD [address] [place] [address] Social History Tobacco Use Types Packs/Day Years [...] Description 03/29/2025 1:00 PM EST Office Visit [facility] MED & PEDS [address] [place] [address] Chela Lynn MD [address] [place] [address] documented as of this encounter Visit Diagnoses Not on filedocumented in this encounter Additional Health Concerns Assessment Noted Time PHQ-9 Depression Total Score: 2 06/06/19 24 10:37 AM EST documented as of this encounter Care Teams Geographic Analyst Relationship Specialty Start Date End Date Chela Lynn MD [address] [place] [address] PCP - General Family Medicine 06/06/23 documented as of this encounter
--- OUTSIDE RECORDS SUMMARY | 2025-03-02 17:13 | XMS_ITS | Encounter Summary ---
Author Organization [employer] Address [address] [place] [address] 7 [place] [address] Care Team Providers Care Sales Administrator Name Role Phone Chela Lynn MD Primary Care Provider [phone] Reason for Referral * Imaging (Routine) - Closed Specialty Diagnoses / Procedures Referred By Contac t Referred To Contact Radiology Diagnoses Episodic cluster headache, not intractable Procedures CT Head w/o Contrast Audelia De Luna MD [address] [place] [address] Phone: tel: fax: [address] Phone: tel: fax: Referral ID Status Reason Start Date Expiration Date Visits Re quested Visits Authorized [id number] Closed 08/27/2023 08/26/2024 1 1 Encounter Details Date Type Department Care Team (Late st Contact Info) Description 08/27/2023 Orders Only [facility] CH[facility] MED & PEDS [address] [place] [address] Audelia De Luna MD [address] [place], [place] [phone] Episodic cluster headache, not intractable (Primary Dx) [...] Description 03/29/2025 1:00 PM EST Office Visit [facility] CHC MED & PEDS [address] [place] [address] Chela Lynn MD [address] [place] [address] documented as of this encounter Procedures Procedure [...] (ABNORMAL) C-reactive Protein (02/06/2024 11:56 AM EDT) C Reactive Protein 1.96(H) < or = 0.50 mg/dL [facility] 02/06/2024 11:5 6 AM EDT 02/06/2024 12:02 PM EDT us Generic External Data Provider LAB BLOOD ORDERAB LES Final Result Performing Organization Address [facility] Co de Phone Number [facility] [address] [place] [phone] * Creatine Kinase, Total (02/06/2024 11:56 AM EDT) Creatine Kinase Total 79 26 - 140 U/L [facility] 02/06/2024 11:5 6 AM EDT 02/06/2024 12:02 PM EDT us Generic External Data Provider LAB BLOOD ORDERAB LES Final Result Performing Organization Address [facility]/ZIP Co de Phone Number [facility] [address] [place] [phone] * Prothrombin Time-INR (02/06/2024 11:56 AM EDT) Prothrombin Time 12.4 10.9 - 12.4 SEC [facility] INTERNATIONAL NORM RATIO 1.1 0.9 - 1.1 [facility] Comment:INTERNATIONAL NORMAL IZED RATIO (INR) [...] ORDERAB LES Final Result Performing Organization Address City/State/[facility] Co de Phone Number [facility] [address] [place] [phone] * (ABNORMAL) Comprehensive Metabolic Panel (02/06/2024 11:56 AM EDT) Pathologist [facility] Sodium 136 135 - 145 mmol/L [facility] Potassium 4.1 3.3 - 5.1 mmol/L [facility] Chloride 101 96 - 108 mmol/L [facility] Carbon Dioxide 30(H) 22 - 29 mmol/L [facility] Anion Gap 9(L) 12 - 20 [facility] Urea Nitrogen (BUN) 17(H) 9 - 16 mg/dL [facility] Creatinine, Serum 0.69 0.5 - 1.4 mg/dL [facility] Creatinine Clr Calc Pharmacy 60.9 [facility] Comment:Provided height and weight: 157.48 cm,61.689 kg.eGFR (calculated from the MDRD study equation) and eCrCl(calculated from the Cockcroft-Gault equation) are based ondifferent parameters and may not yield comparable results.If eCrCl result is absurd, please check patient'sheight/weight. Estimated Glomerular Filt Rate >60 [facility] Comment:NOTE: For -Am erican individuals, multiply the result by 1.210.Chronic Kidney Disease: Estimated GFR < 60 mL/min/1.65g4Kmuxtw Kidney Disease: Estimated GFR < 15 mL/min/1.73m2 Glucose 92 60 - 115 mg/dL [facility] Calcium 9.7 8.4 - 10.2 mg/dL [facility] Bilirubin, Total 1.1(H) 0.0 - 1.0 mg/dL [facility] Aspartate Amino Transferase 20 5 - 31 U/L [facility] Alanine Aminotransferase 11 0 - 31 U/L [facility] Total Protein 5.9(L) 6.5 - 8.0 g/dL [facility] Albumin Level 3.7 3.5 - 5.0 g/dL [facility] Alkaline Phosphatase 65 39 - 117 U/L [facility] 02/06/2024 11:5 6 AM EDT 02/06/2024 12:02 PM EDT us Generic External Data Provider LAB BLOOD ORDERAB LES Final Result [facility] [address] [place] [phone] * (ABNORMAL) CBC auto differential (02/06/2024 11:56 AM EDT) White Blood Count 9.6 4.8 - 10.8 X10*3/uL [facility] Red Blood Count 4.64 4.20 - 5.50 X10*6/uL [facility] Hemoglobin 14.2 12.0 - 16.0 g/dl [facility] Hematocrit 43.0 37.0 - 47.0 % [facility] Mean Corpuscular Volume 92.7 80.0 - 98.0 fL [facility] Mean Corpuscular Hemoglobin 30.6 27.0 - 33.0 pg [facility] Mean Corpuscular HGB Conc 33.0 31.0 - 35.0 g/dl [facility] Red Cell Distribution Width 14.4 11.0 - 16.0 % [facility] Platelet Count 317 160 - 400 X10*3/uL [facility] Mean Platelet Volume 9.6 9.4 - 12.3 fL [facility] Neutrophils Percent Auto 66.2 45 - 73 % [facility] Imm Gran Pct Auto 0.4 0.0 - 0.4 % [facility] Lymphocytes Percent Auto 21.5 20 - 40 % [facility] Monocytes Percent Auto 10.7 2 - 11 % [facility] Eosinophils Percent Auto 0.8 0 - 4 % [facility] Basophils Percent Auto 0.4 0 - 2 % [facility] NRBC Pct Auto 0.0 0.0 - 0.2 /100WBC [facility] Neutrophils Absolute Auto 6.4 2.0 - 8.3 x10*3/uL [facility] Imm Gran Abs Auto 0.04(H) 0.00 - 0.03 X10*3/uL [facility] Lymphocytes Absolute Auto 2.1 1.2 - 4.9 X10*3/uL [facility] Monocytes Absolute Auto 1.0 0.1 - 1.2 X10*3/uL [facility] Eosinophils Absolute Auto 0.1 0.0 - 0.4 X10*3/uL [facility] Basophils Absolute Auto 0.0 0.0 - 0.2 X10*3/uL [facility] NRBC Abs Auto 0.000 0.0 - 0.012 X10*3/uL [facility] 02/06/2024 11:5 6 AM EDT 02/06/2024 12:02 PM EDT us Generic External Data Provider LAB BLOOD ORDERAB LES Final Result [facility] [address] [place] [phone] [phone] * CT Head w/o Contrast (10/08/2023 8:00 AM EDT) Anatomical Region Laterality Modality Head, Neck Computed Tomogra phy 10/08/2023 8:00 AM EDT Narrative 10/23/2023 5:32 PM EDT [address] [address] [address] Scan Report Signed Patient: Rut Morales MR#: [id number] : 1950 Acct:[id number] Age/Sex: 73 / F ADM Date: 10/08/23 Loc: HO.CT Attending Dr: Audelia De Luna MD Ordering Physician: Audelia De Luna MD Date of Service: 10/08/23 Procedure(s): CT head/brain wo IV con Accession Number(s): [id number] cc: Audelia De Luna MD; Chela Lynn [...] in OV> 10/23/23 1728 DD/ 0800 TD/TT: Admissions Nurse: OLEKSANDR Procedure Note Donotuseinterpreter, Image - 10/23/[address] [address] [address] Scan Report Signed Patient: Rut Morales GMR#: [id number] : 9Acct:[id number] Age/Sex: 73 / FADM Date: 10/08/23 Loc: HO.CT Attending Dr: Audelia De Luna MD Ordering Physician: Audelia De Luna MD Date of Service: 10/08/23 Procedure(s): CT head/brain wo IV con Accession Number(s): [id number] cc: Audelia De Luna MD; Chela Lynn [...] in OV> 10/23/23 1728 DD/ 0800 TD/TT: Admissions Nurse: OLEKSANDR Audelia De Luna MD IMG CT PROCEDURES Final Res ult documented in this encounter Visit Diagnoses Diagnosis Episodic cluster headache, not intractable- Primary documented in this encounter Additional Health Concerns Assessment Noted Time PHQ-9 Depression Total Score: 2 06/06/19 24 10:37 AM EST documented as of this encounter Care Teams Sales Administrator Relationship Specialty Start Date End Date Chela Lynn MD [address] [place] [address] PCP - General Family Medicine 06/06/23 documented as of this encounter
--- OUTSIDE RECORDS SUMMARY | 2025-03-02 17:13 | XMS_ITS | Encounter Summary ---
Author Organization [employer] Address 75 [facility] 7t [place] [address] Care Team Providers Care Circular Head Saw Operator Name Role Phone Chela Lynn MD Primary Care Provider [phone] Reason for Visit * Reason Onset Date Comments Med Refill 04/01/2024 Encounter Details Date Type Department Care Team ([facility] st Contact Info) Description 04/01/2024 Telephone [facility] MEDICINE [address] [place] [address] Chela Lynn MD [address] [place] [address] Med Refill Social History Tobacco Use Types [...] 04/01/2024 3:54 PM EST Medication sent to [facility] on 02/03/24 #180 with 1 refill. * Telephone Encounter - Lucy Anderson - 04/01/2024 3:52 PM EST TC from pt requesting medication refill. Medications needing refill : Oyster Shell Calcium + D3 500-10 MG-MCG tablet To be sent to: [facility] documented in this encounter Plan of Treatment Upcoming Encounters Date Type Department Care Team (Late st Contact Info) Description 03/29/2025 1:00 PM EST Office Visit [facility] MED & PEDS [address] [place] [address] Chela Lynn MD [address] [place] [address] documented as of this encounter Visit Diagnoses Not on filedocumented in this encounter Additional Health Concerns Assessment Noted Time PHQ-9 Depression Total Score: 2 06/06/19 10:37 AM EST documented as of this encounter Care Teams Circular Head Saw Operator Relationship Specialty Start Date End Date Chela Lynn MD [address] [place] [address] PCP - General Family Medicine 06/06/23 documented as of this encounter
--- OUTSIDE RECORDS SUMMARY | 2025-03-02 17:13 | XMS_ITS | Clinical Summary ---
Author Organization [employer] Address 75 [facility] 7t [place] [address] Care Team Providers Care Drawer In Dobby Loom Name Role Phone Chela Lynn MD Primary Care Provider [phone] Allergies Active Allergy Reactions Criticality Noted Date Comments Morphine Other 12/28/2021 nausea vomiting morphine Penicillins Unknown,Other 12/28/2021 Product containing penicillin (product) Medications * This document contains information received from the source organization and may not represent a complete record from that organization. TURMERIC PO Take 1,500 mg by mouth 2 times daily. Active mometasone (Nasonex) 50 MCG/ACT nasal sprayIndications:S tuffy and runny nose Administer 1-2 sprays into each nostril Once per day. 17 g 2 4 Active ipratropium (Atrovent) 0.03 % nasal spray USE 2 SPRAY THREE TIMES A DAY DIRECTED 4 Active alendronate (Fosamax) 70 MG tablet [...] per day. 90 capsule 1 4 Active levothyroxine (Synthroid) 100 MCG tabletIndications: Acquired hypothyroidism 100 mcg every other day, 88 mcg every other day. 30 tablet 11 5 Active baclofen (Lioresal) 10 MG tabletIndications: Lumbosacral spondylosis without myelopathy TAKE ONE TABLET BY MOUTH AT BEDTIME 90 tablet 1 5 Active ibuprofen 800 MG tabletIndications: Extensor tenosynovitis of left wrist,Chronic pain of left knee Take 1 tablet by mouth every 8 hours for 2 days, then every 8 hours as needed for moderate-sever e pain. Take with food. 42 tablet 5 Active allopurinol (Zyloprim) 100 MG tablet TAKE 1 TABLET BY MOUTH EVERY DAY 90 tablet 1 5 Active traZODone (Desyrel) 100 MG tabletIndications: Insomnia, unspecified type TAKE ONE TABLET AT BEDTIME 90 tablet 1 5 Active pregabalin (Lyrica) 75 MG capsule Take 1 capsule (75 mg) by mouth 2 times daily. 60 capsule 2 5 Active levothyroxine (Synthroid, Levoxyl) 88 MCG tabletIndications: Hypothyroidism, unspecified type TAKE ONE TABLET EVERY MORNING 90 tablet 1 5 Active Active Problems Problem Noted Date [...] Relevant Medication Mometasone (Nasonex) 50 MCG/ACT Nasal [place] Physical exam, annual 07/23/2023 Assessment & Plan [...] recommended reduction of 20-30% of maintenance calories; safe and vault service mechanic referral offered. Recommended to decrease soda and [...] Date Type Department Care Team Description 01/26/2025 Orders Only [facility] MED & PEDS [address] [place] [address] Chela Lynn MD 01/26/2025 Telephone [facility] MEDICINE [address] [place] [address] Chela Lynn MD Med Refill 01/25/2025 Telephone [facility] MED & PEDS [address] [place] [address] Chela Lynn MD 01/25/2025 Telephone [facility] MED & PEDS [address] [place] [address] Chela Lynn MD 01/25/2025 Refill [facility] MED & PEDS [address] [place] [address] Chela Lynn MD Lumbosacral spondylosis without myelopathy 01/12/2025 Refill [facility] MED & PEDS [address] [place] [address] Emma Mckenna MD Hypothyroidism, unspecified type 01/11/2025 Refill [facility] MED & PEDS [address] [place] [address] Chela Lynn MD Lumbosacral spondylosis without myelopathy 12/21/2024 3:30 PM EDT Office Visit [facility] [address] [place] [address] Chela Lynn MD Hip pain, bilateral (Primary Dx); Dietary counseling; Exercise counseling; Overweight; Bilateral leg cramps; Lumbar radiculopathy; Hoarseness of voice; Hypothyroidism, unspecified type 12/21/2024 Travel 12/15/2024 Telephone [facility] MED & PEDS [address] [place] [address] Chela Lynn MD chart prep 12/15/2024 Telephone [facility] MED & PEDS [address] [place] [address] Chela Lynn MD 12/04/2024 Telephone [facility] MED [facility] PEDS [address] [place] [address] Chela Lynn MD Nurse Triage from Last 3 Months Immunizations Immunization Administration Dates Next Due Influenza High-dose Quadriva lent Preservative Free 12/27/2022,12/16/2020 Influenza Quadrivalent Adjuvanted 01/07/2020 Influenza Whole 01/02/2020,12/12/2018 Influenza injectable quadriv alent IIV4 with preservative 02/02/2015 Influenza live intranasal qu adrivalent LIAV4 01/28/2014 Influenza, High Dose Seasona l, Preservative Free 12/24/2023,01/09/2017,02/02/2016 Influenza, IIV3, injectable 12/24/2023,0 12/27/2022,02/05/2022,12/16,01/07/2020,01/21/2018,12/28/2017 ,01/09/2017,01/08/2017,02/12/2016,1009/2015,06/24/2015,02/02/2015, 3,04/29/2012,01/28/2012,01/24/2012 Influenza, live, intranasal 01/28/2014 Influenza, trivalent, [...] 12/21/2024 3:24 PM EDT Plan of Treatment Upcoming Encounters Date Type Department Care Team (Late st Contact Info) Description 03/29/2025 1:00 PM EST Office Visit [facility]S [address] [place] [address] Chela Lynn MD [address] [place] [address] Health Maintenance Due Date Last Done Comments [...] Procedure Name Priority Date/Time Associated Diagnosis Comments T4, FREE Routine 01/26/2025 9:16 AM EDT TSH W/REFLEX TO FT4 Routine 01/26/2025 9 :16 AM EDT Hypothyroidism, unspecified type BI MAMMOGRAM SCREENING TOMOSYNTHESIS BILATERAL Routine 06/21/2023 9:30 AM EST Breast cancer screening by mammogram HEPATITIS C AB W/REFL TO HCV RNA, QN, PCR Routine 06/18/2023 9:33 AM EST Encounter for health-related screening LIPID PANEL, STANDARD Routine 06/18/2023 9:33 AM EST Class 1 obesity from Last 3 Months or Most Recently Relevant to Health Maintenance Results * (ABNORMAL) TSH W/Reflex to FT4 (01/26/2025 9:16 AM EDT) TSH reflex Free T4 4.18(H) 0.32 - 4.0 uIU/mL [facility] Blood Venous blood specimen / Unknown 01/26/2025 9:16 AM EDT 01/26/2025 2:09 PM EDT us Chela Lynn MD LAB BLOOD ORDERABLES Final Re sult Performing Organization Address City/[facility]/ZIP Co de Phone Number [facility] [address] [place] [phone] [phone] * T4, Free (01/26/2025 9:16 AM EDT) Free T4 (Free Thyroxine) 0.86 0.71 - 1.85 ng/dL [facility] 01/26/2025 9:16 AM EDT 01/26/2025 2:09 PM EDT us Chela Lynn MD LAB BLOOD ORDERABLES Final Re sult Performing Organization Address [facility] Co de Phone Number [facility] [address] [place] [phone] * BI Mammogram Screening Tomosynthesis Bilateral (06/21/2023 9:30 AM EST) Anatomical Region Laterality Modality Breast Bilateral Mammography 06/21/2023 9:30 AM EST Narrative 07/11/2023 5:57 AM EDT [facility] [address] [place] [address] Mammography Report Signed Patient: Rut Morales MR#: [id number] : 1950 Acct:[id number] Age/Sex: 72 / F ADM Date: 06/21/23 Loc: HO.MAMMO Attending Dr: Chela Lynn MD Ordering Physician: Chela Lynn MD Results: 2Beni gn Findings Date of Service: 06/21/23 Follow Up: 1 Year From Orig inal Mammogram Procedure(s): MM tomosynthesis screening BI Accession Number(s): [id number] cc: Chela Lynn MD EXAMINATION: MM SCREENING [...] Cadet MD in OV> 07/11/23 0554 DD/ TD/TT: Embalmer/Funeral Director: Procedure Note Donotuseinterpreter, Image - [facility] [address] [place] [address] Mammography Report Signed Patient: Rut Morales GMR#: [id number] : 9Acct:[id number] Age/Sex: 72 / FADM Date: 06/21/23 Loc: HO.MAMMO Attending Dr: Chela Lynn MD Ordering Physician: Chela Lynn MDResults: 2Beni gn Findings Date of Service: 06/21/23Follow Up: 1 Year From [facility] Mammogram Procedure(s): MM tomosynthesis screening BI Accession Number(s): [id number] cc: Chela Lynn MD EXAMINATION: MM SCREENING [...] Cadet MD in OV> 07/11/23 0554 DD/ 09 TD/TT: Embalmer/Funeral Director: Chela Lynn MD IMG BI PROCEDURES Final Resul t * Hepatitis C Antibody with Reflex to HCV, RNA, Quantitative, Real-Time PCR (06/18/2023 9:33 AM EST) Hepatitis C Antibody Nonreactive Nonreactive [facility] Comment:Antibodies to HCV no t detected; does not exclude early acuteHCV infection. Blood Venous blood specimen / Unknown 06/18/2023 9:33 AM EST 06/18/2023 2:41 PM EST Chela Lynn MD LAB BLOOD ORDERABLES Final Re sult [facility] [address] [place] [address] [phone] * Lipid Panel, Standard (06/18/2023 9:33 AM EST) Triglycerides 103 <150 mg/dL [facility] Comment:Desirable Triglyceri de: less than 150 mg/dLBorderline High Triglyceride 150-199 mg/dLHigh Triglyceride: 200-499 mg/dLVery High Triglyceride: greater than or equal to 5OO mg/dL Cholesterol 143 <200 mg/dL [facility] Comment:Desirable Cholestero l: less than 200 mg/dLBorderline High Cholesterol: 200-239 mg/dLHigh Cholesterol: greater than 239 mg/dL LDL Cholesterol Calculated 82 <100 mg/dL [facility] Comment:Desirable LDL: less than 100 mg/dLNear Optimal/Above Optimal LDL: 110- 129 mg/dLBorderline High LDL: 130-159 mg/dLHigh LDL: 160-189 mg/dLVery High LDL: greater than or equal to 190 mg/dL HDL Cholesterol 41 >40 mg/dL [facility] Comment:Desirable HDL: great er than 40 mg/dL Note: This HDL assay may give artificially low results in patients with liver disease. Blood Venous blood specimen / Unknown 06/18/2023 9:33 AM EST 06/18/2023 2:41 PM EST us Chela Lynn MD LAB BLOOD ORDERABLES Final Re sult [facility] [address] [place] [address] [phone] from Last 3 Months or Most Recently Relevant to Health Maintenance Insurance [facility] MEDICARE ADVANTAGE HMO Care Teams Drawer In Dobby Loom Relationship Specialty Start Date End Date Chela Lynn MD [address] [place] [phone] PCP - General Family Medicine 06/06/23
--- OUTSIDE RECORDS SUMMARY | 2025-03-02 17:13 | XMS_ITS | Encounter Summary ---
Author Organization [employer] Address [address] [facility] 7t [place] [address] Care Team Providers Care Drawing Checker Name Role Phone Chela Lynn MD Primary Care Provider [phone] Reason for Visit * Reason Comments Med Change Request Encounter Details Date Type Department [facility] Description 09/18/2023 Refill [facility] MED & PEDS [address] [place], [place] [phone] Chela Lynn MD [address] [place] [address] Stuffy and runny nose Social History Tobacco [...] Description 03/29/2025 1:00 PM EST Office Visit [facility] MED & PEDS [address] [place] [address] Chela Lynn MD [address] [place] [address] documented as of this encounter Visit Diagnoses Diagnosis Stuffy and runny nose Other diseases of nasal cavity and sinuses documented in this encounter Additional Health Concerns Assessment Noted Time PHQ-9 Depression Total Score: 2 06/06/19 24 10:37 AM EST documented as of this encounter Care Teams Drawing Checker Relationship Specialty Start Date End Date Chela Lynn MD [address] [place] [phone] PCP - General Family Medicine 06/06/23 documented as of this encounter
--- OUTSIDE RECORDS SUMMARY | 2025-03-02 17:13 | XMS_ITS | Patient Health Record ---
Author Organization [employer] Address [address] [place] [phone] Care Team Providers Care Supervisor Ride Assembly Name Role Phone Deana LEWIS, Ricardo Primary Care Provider Unavail able Ignacio Monae Unavailable [phone] Allergies Allergen (clinical drug ingredient) Drug/Non Drug [...] Status Risk Notes Problem Blood in stool (046248604) Blood in stool (578.1) Active confirmed Problem Diarrhea (38996127) Diarrhea (787.91) Active confirmed Problem Feces contents abnormal (873308946) Nonspecific abnormal finding in stool contents (792.1) Active confirmed Problem Abnormal findings diagnostic imaging of liver and biliary tract (801214694) Nonspecific abnormal findings on radiological and other [...] Start Date Coverage End Date MEDICARE OF [facility] [address] [place] [id number] HAWK HERNANDEZ Self - patient is the insured MEDICAID OF [facility] [address] [place] [address] [id number] HAWK HERNANDEZ Self - patient is the insured Medical (General) History Medical History History ICD Code colonoscopy 06-04-2005-screening-negative for polyps Diverticulosis Hypothyroidism Leg cramps Migraines Back pain Denies HI,DM,CVA,Lung disease,renal dise ase Surgical History Surgery Date(Month/Year) [facility] Thyroidectomy 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
--- OUTSIDE RECORDS SUMMARY | 2025-03-02 17:13 | XMS_ITS | Encounter Summary ---
Author Organization [employer] Address 75 [facility] 7t [place] [address] Care Team Providers Care Demonstrator Electric Gas Appliances Name Role Phone Chela Lynn MD Primary Care Provider [phone] Reason for Visit * Reason Onset Date Comments Results 02/19/2024 Encounter Details Date Type Department Care Team ([facility] Contact Info) Description 02/19/[address] [facility] MEDICINE [address] [place] [address] Chela Lynn MD [address] [place] [address] Results Social History Tobacco Use Types Packs/Day [...] a follow up. Please contact pt at [phone]. * Telephone Encounter - Nathan Carvajal - 02/19/2024 9:41 AM EDT TC from pt requesting call back regarding Results. Type of results: Labs Date when done: 02/18/24 Facility: [facility] Labs - Type of results: XR Date when done: 02/18/[address]: [facility] documented in this encounter Plan of Treatment Upcoming Encounters Date Type Department Care Team (Late st Contact Info) Description 03/29/2025 1:00 PM EST Office Visit [facility] MED & PEDS [address] [place] [address] Chela Lynn MD [address] [place] [address] documented as of this encounter Visit Diagnoses Not on filedocumented in this encounter Additional Health Concerns Assessment Noted Time PHQ-9 Depression Total Score: 2 06/06/19 24 10:37 AM EST documented as of this encounter Care Teams Demonstrator Electric Gas Appliances Relationship Specialty Start Date End Date Chela Lynn MD [address] [place] [address] PCP - General Family Medicine 06/06/23 documented as of this encounter
--- OUTSIDE RECORDS SUMMARY | 2025-03-02 17:13 | XMS_ITS | Clinical Summary ---
Author Organization [facility] Address [address] [place] [phone] Phone Care Team Providers Care Customs Brokerage Agent Name Role Phone Annette Castillo NP Primary [...] [place] H[place] BLUE [place]PLACEMENT [address] [place] [address] MEDICARE HMO BLUE [place]PLAC[place] [address] [place] [address] [address] [place] [address] [address] [place] [address] MEDICARE HMO BLUE REPLACEMENT [address] [place] [address] MEDICARE O BLUE REPLACEMENT [address] [place] [address] MEDICARE HMO BLUE REPLACEMENT [place] BL[place]ACEMENT Care Teams Customs Brokerage Agent Relationship Specialty Start Date End Date Annette Castillo NP [address] [place] [address] PCP - General Family Medicine 12/28/21 Additional Source Comments The information contained in this document represents components of the legal health record. It is not the complete legal health record.[facility]
--- NOTE | 2025-03-04 10:00 | HO.ANESPROP2 ---
Documented by User: Jerica Casillas NP 03/04/25 10:01 HPI - Anesthesia Eval Consult details Narrative: 74yo F for Colonoscopy [facility] Past Medical History Medical History (Updated 03/09/25 @ 09:47 by Anuja Castillo RN) Nerve pain Gout Hypothyroidism Surgical History Surgical History Hx of colonoscopy Status post breast reduction Hx of cholecystectomy Social History Social History Patient Tobacco Use Status: Former Tobacco user Use of substances other than those prescribed or required for medical reasons: No Are you DNR?: No Advance Directives: No Advance Directives Information Provided: Yes Meds Allergies Allergy/AdvReac Type Severity Reaction Status Date / Time penicillin V Allergy Unknown Rash Verified 03/09/25 09:47 morphine AdvReac Vomiting Verified 03/09/25 09:47 Home Medications ?Medication ?Instructions ?Recorded ?Confirmed ?Last Taken ?Type allopurinol 100 mg tablet 100 mg PO DAILY 08/25/24 03/09/25 Unknown History levothyroxine 100 mcg tablet 100 mcg PO DAILY 08/25/24 03/09/25 Unknown History trazodone 100 mg tablet 100 mg PO BEDTIME 08/25/24 03/09/25 Unknown History baclofen 10 mg tablet 10 mg PO BEDTIME 03/09/25 03/09/25 Unknown History levothyroxine 88 mcg tablet 88 mcg PO QAM 03/09/25 03/09/25 Unknown History pregabalin 75 mg capsule 75 mg PO BID 03/09/25 03/09/25 Unknown History Assessment and Plan Assessment Anesthesia Assessment: Chart Reviewed Documented by User: Brien Eagle MD 03/09/25 10:42 [facility] Active Problems Active Problems: 03/09/2025 Past Medical History Medical History (Updated 03/09/25 @ 09:47 by Anuja Castillo RN) Nerve pain Gout Hypothyroidism Functional capacity: independent ambulation Family History Family history of problems with anesthesia: No Surgical History Surgical History Hx of colonoscopy Status post breast reduction Hx of cholecystectomy History of Problems with Anesthesia: No Social History Social History Patient Tobacco Use Status: Former Tobacco user Use of substances other than those prescribed or required for medical reasons: No Are you DNR?: No Advance Directives: No Advance Directives Information Provided: Yes Meds Allergies Allergy/AdvReac Type Severity Reaction Status Date / Time penicillin V Allergy Unknown Rash Verified 03/09/25 09:47 morphine AdvReac Vomiting Verified 03/09/25 09:47 Home Medications ?Medication ?Instructions ?Recorded ?Confirmed ?Last Taken ?Type allopurinol 100 mg tablet 100 mg PO DAILY 08/25/24 03/09/25 Unknown History levothyroxine 100 mcg tablet 100 mcg PO DAILY 08/25/24 03/09/25 Unknown History trazodone 100 mg tablet 100 mg PO BEDTIME 08/25/24 03/09/25 Unknown History baclofen 10 mg tablet 10 mg PO BEDTIME 03/09/25 03/09/25 Unknown History levothyroxine 88 mcg tablet 88 mcg PO QAM 03/09/25 03/09/25 Unknown History pregabalin 75 mg capsule 75 mg PO BID 03/09/25 03/09/25 Unknown History Exam Exam Date and Time: 03/09/2025 Airway Mallampati Class: II TM Dist: >3cm Neck ROM: Full Heart: rrr Lungs: ctab vesicular Assessment and Plan Assessment Anesthesia Assessment: Anesthesia Plan Discussed Final Anesthetic Review Family History of Problems with Anesthesia: No History of Problems with Anesthesia: No NPO: Yes ASA Class: II Final Preanesthetic Review: No Changes in Pt Med Stat, Meds/Allgs Chart Reviewed, Consent Obtained/Reviewed and Anes Risks/Benef Reviewed Patient Risk: Low Procedure Risk: Low Anesthetic Plan Anesthetic Plan: MAC: Disposition: Standard PACU
[2025-03-05 14:29] VITALS: BMI 22.7
[2025-03-09 09:47] VITALS: BMI 26.2
[2025-03-09 09:55] VITALS: BP 121/76; PULSE 68; RESP 15; TEMP 37; O2SAT 97
[2025-03-09] MEDS: Lactated Ringers 1,000 ML 100 ML IVCONT (10:13)
--- NOTE | 2025-03-09 11:00 | MHC.SHP ---
Pre-Procedural Eval Section A - 24 Hr Update-Section A only Date of Service: 03/09/25 Section B - Complete if H&P > 30 days Chief Complaint: screening Relevant Family History (Specify if Yes): No Relevant Social History: None Present Medications: see Short Stay Collaborative assessment Medical History: Significant History (Gout Hypothyroidism) History of Previous Operations: Relevant previous surgery/procedure and date(s) ( Hx of colonoscopy Status post breast reduction Hx of cholecystectomy) Allergies: Allergies Allergy/AdvReac Type Severity Reaction Status Date / Time penicillin V Allergy Unknown Rash Verified 03/09/25 09:47 morphine AdvReac Vomiting Verified 03/09/25 09:47 Review of Systems Sugical H&P ROS: Negative: Constitution, Cardiovascular, Respiratory, Neurological, Psychiatric, Hem-Onc, Allergic/Immunologic, Gastrointestinal, Genitourinary, Musculoskeletal, Integumentary, Endocrine and Eyes/Ears/Nose/Throat Exam Surgical H&P Exam: Normal: HEENT, Normal: Heart, Normal: Lungs, Normal: Extremities, Normal: Abdomen, Normal: Skin and Normal: Neurological Plan Diagnosis/Plan: Unchanged I have reviewed the history and physical and performed a pertinent physical examination on my patient. No changes have occurred unless specified. Time Spent With Patient Time: Total time managing care of this patient today ____ minutes.
--- NOTE | 2025-03-09 11:35 | HO.OPN-COLON ---
Colonoscopy Operative Note Operative Note Date of Service: 03/09/25 Narrative: Operative Information Procedure Description: Colonoscopy Indication: screening Anesthesia: MAC COLONOSCOPY Instrument: Olympus variable stiffness pediatric scope 190L Colonoscopy Monitoring: Vital signs and clinical assessment, continuous EKG monitoring, Pulse oximetry, Carbon Dioxide monitoring and blood pressure monitoring were done throughout the procedure. Colon withdrawal time was 15 minutes. Procedure: The patient was placed in the left lateral decubitis position and pre-procedure medications were administered. After a digital rectal examination of the ano-rectum, the video colonoscope was inserted into the rectum and advanced through the colon to the cecum/TI. The colonoscope was slowly withdrawn in a retrograde panoramic fashion and the colon mucosa was carefully examined including a retroflexed view of the rectum. Findings and interventions are described below. Procedure Difficulty: moderate, pressure applied Findings: Terminal Ileum-normal Cecum: diminutive polyp 1-2 mm removed with cold forceps Ascending Colon: mild diverticulosis Transverse Colon -normal Descending Colon: x 2 sessile polyps 5-7 mm removed with cold snare Sigmoid Colon: severe diverticulosis, with luminal narrowing, x 1 sessile polyp 5-7 mm removed with cold snare Rectum: Retroflexion with small internal hemorrhoids seen, grade I Anorectum - normal Intervention: cold snare, cold forceps Colon preparation: [place] Bowel Preparation Scale Right colon; 1-2 Transverse colon: 1-2 Left colon; 1-2 (0 = Unprepared colon segment with mucosa not seen due to solid stool that cannot be cleared. 1 = Portion of mucosa of the colon segment seen, but other areas of the colon segment not well seen due to staining, residual stool and/or opaque liquid. 2 = Minor amount of residual staining, small fragments of stool and/or opaque liquid, but mucosa of colon segment seen well. 3 = Entire mucosa of colon segment seen well with no residual staining, small fragments of stool or opaque liquid) Impression and Post Procedure Diagnosis: diverticulosis colon polyps x 4 internal hemorrhoids Plan: High fiber diet leaflet Avoid straining at stool, epsom salts and sitz bath, anusol supps or cream Repeat Colonoscopy in 1 year due to areas of fair prep or earlier if clinically indicated Above findings were reviewed with the patient and relevant handouts were provided if indicated.
[2025-03-09 11:39] VITALS: BP 85/42; PULSE 79; RESP 14; TEMP 36.3; O2SAT 96
[2025-03-09 11:55] VITALS: BP 97/52; PULSE 62; RESP 14; TEMP 36.3; O2SAT 98
== END 2025-03-09 13:07 | disposition home or self-care (01) ==
PROVIDERS: PCP Family Medicine; Visit Provider Internal Medicine Gastroenterology
PROC: 0DJD8ZZ Inspection of Lower Intestinal Tract, Via Natural or Artificial Opening Endoscopic (ICD-10-PCS; CPT 45378; principal; 2025-03-09 13:00)
DX: Z12.11 Encounter for screening for malignant neoplasm of colon (principal); K64.0 First degree hemorrhoids; K57.30 Diverticulosis of large intestine without perforation or abscess without bleeding; D12.4 Benign neoplasm of descending colon; D12.5 Benign neoplasm of sigmoid colon; K63.5 Polyp of colon
CPT/HCPCS: 45380; 45385; 88305; J2704

== ENCOUNTER → 2025-03-09 09:15 | Outpatient (BNV) | payer MEDICARE, SELFPAY | PROVIDERS: PCP Family Medicine; Visit Provider Internal Medicine Gastroenterology | DX: Z12.11 Encounter for screening for malignant neoplasm of colon (principal); D12.0 Benign neoplasm of cecum; K57.90 Diverticulosis of intestine, part unspecified, without perforation or abscess without bleeding; K64.0 First degree hemorrhoids; D12.4 Benign neoplasm of descending colon; D12.5 Benign neoplasm of sigmoid colon | CPT/HCPCS: 45380; 45385 ==

== ENCOUNTER 2025-04-17 10:02 | Outpatient (REF) | payer MEDICARE, SELFPAY ==
--- NOTE | ~2025-04-17 | XR_ITS ---
EXAMINATION: Bilateral knee. CLINICAL INDICATION: Bilateral knee pain. COMPARISON: Left knee 08/28/2024. TECHNIQUE: 3 views each knee. FINDINGS: Left knee: There is loss of tricompartment joint space with meniscal calcification. No loose bodies, fracture or joint effusions are seen. Soft tissue calcification is seen along the posterior knee joint, likely old trauma. There is mild osteopenia. Right knee: There is loss of tricompartment joint space without bony erosive changes. There is meniscal calcification but no bony erosive changes. There is diffuse osteopenia. No cysts loose bodies or joint effusion seen. There is soft tissue calcification posterior knee likely old injury. XR/XR Knee Aj 3V IMPRESSION: Advanced osteoarthritic changes bilateral knee joints without loose bodies or joint effusion. Bilateral chondrocalcinosis. No acute fracture, dislocation or loose bodies. Electronically signed by: Richard Conte MD 04/19/2025 08:10 AM [facility]
== END 2025-04-17 10:03 | disposition home or self-care (01) ==
LOC: HO.XRAY 10:02
PROVIDERS: PCP Family Medicine; Visit Provider Family Medicine
DX: M22.2X1 Patellofemoral disorders, right knee (principal); M22.2X2 Patellofemoral disorders, left knee
CPT/HCPCS: 73562

== ENCOUNTER → 2025-04-17 10:06 | Outpatient (BNV) | payer MEDICARE, SELFPAY | PROVIDERS: PCP Family Medicine; Visit Provider Radiology Diagnostic Radiology | DX: M17.0 Bilateral primary osteoarthritis of knee (principal); M11.261 Other chondrocalcinosis, right knee; M11.262 Other chondrocalcinosis, left knee | CPT/HCPCS: 73562 ==